=== PATIENT | male | born 1940 | race Caucasian/White ===

== ENCOUNTER 2017-07-30 05:23 | Inpatient (IN) | payer MEDICARE, BC, SELFPAY ==
[2017-07-30] VITALS (14 sets, daily range): BP systolic 151–217; BP diastolic 85–97; PULSE 69–88; RESP 12–17; TEMP 36.5–36.9; O2SAT 95–99; BMI 30.9; BMI 26.1
--- NOTE | 2017-07-30 05:43 | EKG12_ITS ---
Test Reason : ALT LOC Blood Pressure : / mmHG Vent. Rate : 071 BPM Atrial Rate : 071 BPM P-R Int : 178 ms QRS Dur : 108 ms QT Int : 398 ms P-R-T Axes : 032 033 031 degrees QTc Int : 432 ms Normal sinus rhythm Normal ECG Confirmed by TO BECK MD ([id number]), assistant production editor MAXI PERALTA ([id number] on 08/01/2017 8:45:48 AM Referred By: NAHED Confirmed By:TO BECK MD
--- NOTE | 2017-07-30 05:43 | CT_ITS ---
STUDY: CT BRAIN WITHOUT CONTRAST REASON FOR EXAM: Male, 77 years old. Weakness. Altered level of consciousness. RADIATION DOSAGE (If Supplied By Facility): CTDIvol = ( 44.99 ) mGy, DLP = ( 1592.22 ) mGycm TECHNIQUE: Transaxial CT imaging of the brain was performed without administration of intravenous contrast material. Individualized dose optimization techniques were used for this CT. COMPARISON: 07/13/2014. FINDINGS: Normal soft tissue structures. Normal calvarium. There is moderate cerebral atrophy with widening of the extra-axial spaces and ventricular dilatation. There are areas of decreased attenuation within the white matter tracts of the supratentorial brain, consistent with microvascular disease changes. There are old lacunar infarcts basal ganglia bilaterally as well as the right thalamus. There are also old lacunar infarctions in the coronal radiata bilaterally. Normal brainstem. There is moderate cerebellar atrophy. There is atherosclerotic calcification of the vertebral and cavernous carotid arteries. There is no intracranial hemorrhage. There are no findings of an acute ischemic infarction. Normal visualized paranasal sinuses. CT/Brain/Head without Contrast IMPRESSION: Chronic involutional changes of the brain. No demonstrated acute intracranial process. Electronically Signed: Sarabjit Alberts MD at 6:59 EST , Service support ,
--- NOTE | 2017-07-30 05:43 | RAD_ITS ---
STUDY: X-RAY CHEST REASON FOR EXAM: Male, 77 years old. Altered level of consciousness. TECHNIQUE: Single AP portable view of the chest. COMPARISON: 07/14/2016. FINDINGS: There is mild interstitial prominence in the lungs which appears to be chronic. There is no demonstrated acute pulmonary infiltrate. There is no demonstrated pleural abnormality. There is mild cardiac enlargement. Normal mediastinum and ann. Normal visualized pulmonary arteries. There is atherosclerotic calcification of the aortic arch with tortuosity. There are diffuse degenerative changes of the visualized thoracic spine. Normal visualized ribs, clavicles, and shoulders. There is no demonstrated abnormality of the visualized soft tissue structures of the upper abdomen. RAD/Chest 1 View (Portable) IMPRESSION: Chronic interstitial changes. Mild cardiomegaly. No evidence for acute cardiopulmonary pathology. Electronically Signed: Sarabjit Alberts MD at 6:49 EST , Service support ,
--- NOTE | 2017-07-30 05:47 | ED.DCSUM_ITS ---
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 Per she want to get him out of bed today around 3 AM she thinks he may have had decreased mental status and left-sided weakness. He also is complaining of some headache. He has been seen recently in the hospital due to a fall and a CT at that time which was unremarkable. She denies any recent illness. He has had no recent nausea, vomiting, diarrhea, cough or fever. Physical Examination: Elderly male no acute distress. Vital signs stable and afebrile. H EENT exam normal speech. Lid lag on the left. Which may be chronic. Neck nontender. Lungs clear to auscultation bilaterally. Heart regular rate and rhythm no murmur. Abdomen soft nontender. He can move all 4 extremities he does have chronic weakness in the left leg from his prior stroke. No deformities. Nontender. Neurologically is awake and alert. He does answer questions and follow commands. Test Results: CBC normal with a white count of 6. Chemistry unremarkable normal gap of 7 creatinine is 0.8. Glucose of 170. EKG sinus rhythm rate is 71 with no acute abnormality no change from prior EKG from 2017. Chest x-ray showed chronic changes no acute process read by myself and the radiologist. CT of the brain shows no acute abnormality. Prior strokes. Prior atrophy. No acute bleed. Emergency Department Course and Treatment: Repeat exam at 07 40 no significant change. I spoke to the patient's at length and have multiple times during their ER course. She is highly concerned about taking him home because of his overall generalized weakness and is not having specific source at this time. She is also highly focused on he was recently on a cholesterol medication and a bladder spasm medication which she thinks may be the source of this problem even his medications have recently been stopped. I have spoken with the hospitalist Dr. Phelps who is been down to evaluate the patient and has admitted him. Treatment Plan: [] Disposition: Admission Impression: Acute generalized weakness of uncertain etiology Prior stroke with left leg weakness Failure to thrive at home This note was generated with [employer] dictation software. It may contain incorrect words, spelling, and punctuation that were not noted in review of the chart prior to signing ED Disposition - Plan for ED Patient: Chief Complaint: Alt LOC
[2017-07-30 06:04] LABS: Absolute Lymphocyte Count 1.11 X10^3/ul (0.83-4.51); Absolute Neutrophil Count 4.6 X10^3/uL (2.0-7.7); Basophil# 0.01 X10^3/uL; Basophil% 0.2 % (0-1); Eosinophil# 0.04 X10^3/uL; Eosinophils% 0.7 % (0-5); Hematocrit 43.8 % (40-54); Hemoglobin 14.3 g/dl (13.0-16.5); Lymphocyte # 1.11 X10^3/ul (4.0); Lymphocyte % 18.2 % (19-41); Mean Corp Hgb Conc 32.6 g/gl (32-36); Mean Corpuscular Hgb 30.4 pg (27.0-32.0); Mean Corpuscular Volume 93.2 fL (80-94); Mean Platelet Vol. 10.4 fl (6.2-12.0); Monocyte# 0.34 X10^3/uL; Monocyte% 5.6 % (0-10); Neutrophil # 4.58 X10^3/uL (2.7-7.7); Neutrophil % 75.1 % (47-70); Platelet Count 158 K/mm3 (150-450); RBC Distribution Width CV 13.1 % (11.6-14.6); RBC Distribution Width SD 44.9 fl (35.1-43.9); White Blood Count 6.1 K/mm3 (4.4-11.0)
[2017-07-30 06:10] LABS: POSITIVE COUNT NO; POSITIVE DIFFERENTIAL NO; POSITIVE MORPHOLOGY NO
[2017-07-30 06:17] LABS: Anion Gap 7 (5-15); BUN 15 mg/dL (7-18); Calcium,Total 9.2 mg/dL (8.5-10.1); Chloride 99 mmol/L (98-107); Creatinine, Serum 0.88 mg/dL (0.70-1.30); EST Glomerular Filtration Rate 89 mL/min (>60); Est Glom Filt Rate - Afr Amer 108 mL/min (>60); Estimated Creatinine Clearance 73.74 ml/min; Glucose 170 mg/dL (74-106); Sodium Level 137 mmol/L (136-145)
--- NOTE | 2017-07-30 06:44 | NURSING ---
MED SURG AMS NICK
--- NOTE | 2017-07-30 07:06 | PCM.HP.STD ---
Problem List (1) Mental status alteration Status: Acute (2) Generalized weakness Status: Acute (3) Cerebrovascular disease Status: Chronic (4) HTN (hypertension) Status: Chronic (5) Stroke Status: Ruled-out History of Present Illness Date of Admission: 07/30/17 Chief Complaint: AMS The patient is a 77 year old male w/ h/o HTN, tongue CA, CVA with residual left sided weakness admitted for mental status changes. He had multiple recent hospitalizations for fall and was recently seen in the ED for a fall that unremarkable CT in June. He has been getting home PT/OT. He was also been recently placed on CPAP which has helped him to get into a deeper sleep. His tried to get him out of med around 3AM and he has been too weak to get up. He also has been squinting his eyes which he did when he had the stroke. His weakness has been sudden and nothing appeared to improve it. Despite his trying to wake up him, he would not improved and nothing appeared to make his weakness better or worse. Given that he is much bigger than his and no improvement in his weakness, his called paramedics to help. Past Medical History Past Medical History (Chronic Problems): Chronic Problems (Last Updated 06/12/17 @ 13:43 by Lobo Cheng DO) Cerebrovascular disease (Chronic) HTN (hypertension) (Chronic) Allergies chocolate flavor Adverse Reaction (Unknown, Verified 07/30/17 05:32) Other Pork/Porcine Containing Products Adverse Reaction (Unknown, Verified 07/30/17 05:32) Other atorvastatin [From Lipitor] Adverse Reaction (Verified 07/30/17 05:35) Other oxybutynin Adverse Reaction (Verified 07/30/17 05:35) Other Home Medications: Ambulatory Orders Medication Instructions Recorded Aspirin [Aspirin, Baby] 81 mg PO DAILY@0800 06/12/17 Cholecalciferol (Vitamin D3) 5,000 unit PO DAILY 06/12/17 [Vitamin D3] Multivitamins,Therapeutic 1 tablet PO DAILY 06/12/17 [Multivitamin] Lisinopril [Prinivil] 10 mg PO DAILY 07/30/17 Surgical History: - - R hip ga arthroplasty Lives: Spouse/ Significant Other Smoking Status: Never smoker Alcohol: None Drugs: None Review of Systems Constitutional: Denies: Chills, Fever, Weight Change HEENT: Denies: Head Aches, Sinus Congestion, Sinus Drainage Cardiovascular: Denies: Chest Pain, Palpitations Respiratory: Denies: Cough, Shortness of breath at rest, Sputum production Gastrointestinal: Denies: Abdominal Pain, Nausea, Vomiting Genitourinary: Denies: Dysuria Musculoskeletal: Denies: Joint Pain, Joint Tenderness Skin: Denies: Rash, Wounds Neurological: Reports: Balance problems, Confusion. Denies: Focal weakness, Numbness, Tingling Psychiatric: Denies: Anxiety, Depression, Homicidal Ideations, Suicidal Ideations Hematologic/ Lymphatic: Denies: Easy Bruising, Easy Bleeding VTE Information - Inpt Only VTE Present on Admission: No VTE Mechan Device Prophylaxis: SCD's VTE Pharm Prophylaxis ordered?: Yes Patient Problems: Active and Suspected Problems (Last Updated 06/12/17 @ 13:43 by Lobo Cheng DO) Mental status alteration (Acute) - Physical Exam General: Alert, Oriented x3, Cooperative HEENT: Atraumatic, PERRLA, EOMI, Normocephalic Neck: Supple, No JVD, Negative Carotid Bruits Lungs: Clear to auscultation, Normal air movement Cardiovascular: Regular rate, No murmurs Abdomen: Bowel Sounds Present, Soft, Non Tender Extremities: No edema, Capillary Refill Less than 3 Seconds Skin: No rashes, No breakdown Musculoskeletal: No Tenderness to Palpation of Joints or Extremities Neurological: Cranial nerves II-XII grossly intact, - - Generalized weakness Psych/Mental Status: Normal Affect, Appropriate Vital Signs Temp Pulse Resp BP Pulse Ox 97.7 F L 73 17 212/95 H 97 07/30/17 05:24 07/30/17 05:32 07/30/17 05:24 07/30/17 05:32 07/30/17 05:32 Oxygen Delivery Method Room Air Weight: 97.8 kg Body Mass Index (BMI) 30.9 Finger Stick Blood Glucose 168 Laboratory Tests Past 24 Hrs 07/30/17 07/30/17 05:37 05:37 WBC 6.1 RBC 4.70 Hgb 14.3 Hct 43.8 MCV 93.2 MCH 30.4 MCHC 32.6 RDW 13.1 RDW Differential 44.9 H Plt Count 158 MPV 10.4 Immature Gran % (Auto) 0.200 Neut % (Auto) 75.1 H Lymph % (Auto) 18.2 L [place] % (Auto) 5.6 Eos % (Auto) 0.7 Baso % (Auto) 0.2 Absolute Neuts (auto) 4.6 Absolute Lymphs (auto) 1.11 Total Counted Not Reportable Sodium 137 Potassium 4.0 Chloride 99 Carbon Dioxide 31.0 Anion Gap 7 BUN 15 Creatinine 0.88 Estim Creat Clear Calc 73.74 Est GFR (MDRD) Af Amer 108 Est GFR (MDRD) Non-Af 89 BUN/Creatinine Ratio 17.0 Glucose 170 H Calcium 9.2 Assessment/Plan Active and Suspected Problems (Last Updated 06/12/17 @ 13:43 by Lobo Cheng DO) Mental status alteration (Acute) 77 year old male w/ h/o HTN, tongue CA, CVA with residual left sided weakness admitted for mental status changes. 1) Mental status altercation: No clear etiology. No sedative meds. No acute focal finding. CT head negative for acute finding. Will get B12, folate, TSH, ammonia, drug screen, and RPR. Cultures pending as well. Will consider neuro consult if no improvement. 2) HTN: Resume home meds. Will consider adding meds if SBP persistently elevated. Monitor. 3) CVA: left sided residual weakness. PT/OT. 4) Prophylaxis: Heparin.
[2017-07-30] MEDS: Lisinopril 10 MG Tablet PO (08:39)
[2017-07-30] MEDS: Aspirin 81 MG TAB.CHEW PO (08:39)
[2017-07-30] MEDS: Multivitamins,Therapeutic Tablet 1 TABLET PO (08:39)
--- NOTE | 2017-07-30 08:49 | MRI_ITS ---
STUDY: MRI BRAIN WITHOUT CONTRAST REASON FOR EXAM: Male, 77 years old. Confusion. TECHNIQUE: Standardized multiplanar fat and water weighted pulse sequences were obtained. COMPARISON: CT head without contrast 07/30/2017. FINDINGS: No restricted diffusion to suspect acute or subacute ischemic infarcts. Normal size of the ventricles and extra-axial spaces for the patient's age. Confluent periventricular white matter T2 FLAIR hyperintensity foci and in both centrum semiovale. There are also old lacunar cystic infarcts in both periventricular white matter. Normal bilateral basal ganglia. Old lacunar cystic infarct in the right ventral thalamus. There is no extra-axial fluid accumulation. Normal flow voids within the major intracranial circulation suggesting patency by spin echo criteria. Normal sella turcica, pituitary gland, infundibular stalk, optic chiasm and hypothalamus. Normal tectal plate and pineal gland. Normal midbrain, blanco and medulla. Normal cerebellum. Normal basal cisterns. Normal bilateral temporal bones. Normal bilateral internal auditory canals. No demonstrated orbital abnormality, within the constraints of a routine brain study. Normal visualized paranasal sinuses. Normal calvarium and skull base. Normal visualized soft tissue structures. Normal visualized upper cervical spine. MRI/Brain without Contrast IMPRESSION: 1. No MRI evidence of acute or subacute ischemic infarct. 2. Extensive confluent chronic white matter ischemic changes in both cerebral hemispheres. 3. Old lacunar cystic infarcts in both periventricular white matter and in the right ventral thalamus. Electronically Signed: Stephen Burrows MD at 14:53 EST , Service support ,
--- NOTE | 2017-07-30 08:49 | MRI_ITS ---
STUDY: MRA NECK WITH AND WITHOUT CONTRAST REASON FOR EXAM: Male, 77 years old. Confused. TECHNIQUE: 3-D rcop-cn-eryllf (TOF) imaging was performed in an 1.5 T MRI scanner. 10 ml of Gadavist was administered for the contrast enhanced images. COMPARISON: None. FINDINGS: RIGHT CAROTID ARTERIES: Normal right common carotid artery (CCA). Normal right common carotid bulb. Normal origin of the right internal carotid (ICA) artery without a hemodynamically significant stenosis. Normal visualized cervical portion of the right internal carotid artery. Normal origin of the right external carotid artery (ECA). LEFT CAROTID ARTERIES: Normal left common carotid artery (CCA). Normal left common carotid bulb. Normal origin of the left internal carotid (ICA) artery without a hemodynamically significant stenosis. Normal visualized cervical portion of the left internal carotid artery. Normal origin of the left external carotid artery (ECA). VERTEBRAL ARTERIES: Normal antegrade flow within the bilateral vertebral artery without a hemodynamically significant stenosis. The right vertebral artery is slightly more dominant. AORTIC ARCH: Widely patent and normal aortic arch and origins of the great vessels. MRI/MRA Neck WITH and W/O Contrast IMPRESSION: 1. Normal bilateral cervical carotid and vertebral arteries. 2. Normal aortic arch and origins of the great vessels. Electronically Signed: Stephen Burrows MD at 16:03 EST , Service support ,
--- NOTE | 2017-07-30 08:49 | MRI_ITS ---
STUDY: MRA OF THE HEAD WITHOUT CONTRAST REASON FOR EXAM: Male, 77 years old. Confusion. Unable to understand directions. TECHNIQUE: 3-D [id number]-wn-ugbgph (TOF) imaging was performed with MIPs. The study was performed unenhanced. Motion degradation. COMPARISON: None. FINDINGS: Motion degradation with suspicious 50% stenosis in the ascending petrous segment of the right internal carotid artery. Suspicious 50% stenosis in the paraclinoid segment of the right internal carotid artery. Normal right cavernous segment and supraclinoid segment of the right internal carotid artery. Normal right supraclinoid internal carotid artery bifurcation. Normal petrous segments, cavernous segments and supraclinoid segment of the left internal carotid artery. Normal left internal carotid artery bifurcation. Hypoplastic right A1 segment. Normal left A1 segment. Normal intact anterior communicating artery (ACOM). Normal bilateral A2 segments of the anterior cerebral arteries. Normal right M1 and M2 segments of the middle cerebral arteries, with a normal M1 bifurcation. Normal left M1 and M2 segments of the middle cerebral arteries, with a normal M1 bifurcation. No visible right posterior communicating artery (PCOM). Normal left posterior communicating artery (PCOM). Normal bilateral vertebral arteries. Normal basilar artery with a normal basilar bifurcation. The visualized bilateral superior cerebellar (SCA) arteries are normal. Normal bilateral P1, P2 and visualized P3 segments of the posterior cerebral arteries. There is no demonstrated aneurysm of the [place] of [place]. Multiple old lacunar cystic infarcts in the periventricular white matter and in the right ventral thalamus. MRI/MRA Head ONLY without Contrast IMPRESSION: 1. Limited MRA of the head due to motion degradation. 2. Suspicious 50% stenosis in the ascending petrous segment and the paraclinoid segment of the right internal carotid artery. 3. No other suspicious vaso-occlusive disease of the anterior and posterior intracranial circulation. COMMENT: CTA of the head will be very helpful for further clarification if there is no contrast contraindication. Electronically Signed: Stephen Burrows MD at 15:14 EST , Service support ,
--- NOTE | 2017-07-30 08:51 | ECHOD_ITS ---
Reason For Study: TIA/CVA Procedure This was a 2D Doppler, Color Flow transthoracic echocardiogram. Exam performed portable in patient room. Left Ventricle Normal LV size. Moderate concentric left ventricular hypertrophy. Left ventricular systolic function is normal. The estimated ejection fraction is 60 %. No regional wall motion abnormalities noted. Right Ventricle Normal RV size. Normal systolic function. Atria Normal left atrium. Normal right atrium. Bubble contrast study negative for right to left interatrial shunt. Mitral Valve Normal mitral valve. Tricuspid Valve Normal tricuspid valve. Mild (1+) tricuspid valve insufficiency. Pulmonary artery systolic pressure is 26 mmHg. Aortic Valve Trisinus/trileaflet aortic valve. Peak aortic valve gradient 21 mmHg. Mean aortic valve gradient 11 mmHg. Mild aortic stenosis. Calculated aortic valve area (continuity equation) is 1.6 cm2. Pulmonic Valve Normal pulmonic valve. Great Vessels Normal aortic root. The pulmonary artery is normal size. Normal inferior vena cava. Pericardium/Pleural No pericardial effusion. Medication Performed a rapid injection of agitated mix of 9 cc saline and 1cc air to assess for atrial septal defect. MMode/2D Measurements & Calculations LVIDd: 4.0 cm IVSd: 1.3 cm LVOT diam: 2.0 cm LVIDs: 2.8 cm LVPWd: 1.3 cm LVOT area: 3.2 cm2 RVDd: 3.6 cm FS: 30.1 % Ao root diam: 3.8 cm LAV(MOD-sp4): 29.0 ml LA dimension: 2.8 cm LA A4 area: 12.8 cm2 RA A4 area: 10.1 cm2 Doppler Measurements & Calculations MV E max maira: 51.5 cm/sec Ao V2 max: 232.8 cm/sec LV V1 max: 120.5 cm/sec MV A max maira: 55.4 cm/sec Ao max P.7 mmHg LV V1 max P.8 mmHg MV E/A: 0.93 Ao V2 mean: 157.9 cm/sec LV V1 mean P.9 mmHg Ao mean P.3 mmHg LV V1 mean: 79.3 cm/sec Ao V2 VTI: 45.5 cm LV V1 VTI: 24.8 cm MOHINI(I,D): 1.7 cm2 MOHINI(V,D): 1.6 cm2 SV(LVOT): 78.5 ml PA V2 max: 116.4 cm/sec TR max maira: 235.8 cm/sec TR max P.3 mmHg Interpretation Summary Normal LV size. Moderate concentric left ventricular hypertrophy. Left ventricular systolic function is normal. The estimated ejection fraction is 60 %. Bubble contrast study negative for right to left interatrial shunt. Mild aortic stenosis. Calculated aortic valve area (continuity equation) is 1.6 cm2. Ordering Physician: Ruddy Crespo Referring Physician: BRI ASHLEY Performed By: Gisselle Correia, RDCS, RVT
--- NOTE | 2017-07-30 08:52 | PCM.PN.HOSP ---
Patient Problems: Active and Suspected Problems (Last Updated 06/12/17 @ 13:43 by Lobo Cheng DO) Mental status alteration (Acute) Vitals/I&O's: Vital Signs Temp Pulse Resp BP Pulse Ox 98.3 F 74 16 194/90 H 99 07/30/17 08:11 07/30/17 08:11 07/30/17 08:11 07/30/17 08:11 07/30/17 08:11 Oxygen Delivery Method Room Air Weight: 92.2 kg Body Mass Index (BMI) 26.1 Current Medications Acetaminophen (Tylenol) 650 mg PO Q4H PRN PRN PRN Reason: PAIN Aspirin (Aspirin, Baby) 81 mg PO DAILY@0800 [facility] Last Admin: 07/30/17 08:39 Dose: 81 mg Famotidine (Pepcid) 20 mg PO BID [facility] Heparin Sodium (Porcine) () 5,000 units SC Q8 [facility] Potassium Chloride/Sodium Chloride () 1,000 mls @ 100 mls/hr IV .Q10H [facility] Lisinopril (Zestril) 10 mg PO DAILY [facility] Last Admin: 07/30/17 08:39 Dose: 10 mg Magnesium Hydroxide (Milk Of Magnesia) 30 ml PO DAILY PRN PRN PRN Reason: Constipation Multivitamins (Multivitamin) 1 tablet PO DAILYCM [facility] Last Admin: 07/30/17 08:39 Dose: 1 tablet Assessment/Plan Active and Suspected Problems (Last Updated 06/12/17 @ 13:43 by Lobo Cheng DO) Mental status alteration (Acute) Patient is a 77-year-old gentleman with past medical history is significant for acute ischemic stroke in January 2017 brought to the hospital by the on account of patient having had progressive generalized weakness following his discharge from inpatient rehab unit. Patient was also reported to have fallen a couple of times. Patient has been admitted to a monitored bed where patient is currently undergoing evaluation Patient seen and examined his initial assessment including history and physical, diagnostic workup and management orders reviewed. Did add additional orders including MRI MRA of the head and neck to rule out new stroke consultation was placed to urology as well Also did advance patient advance directive plans with the patient's wants patient to remain full code total time spent on this discussion 18 minutes. Code Visit Procedures: 75179 Advncd Care Plan 30 Min
[2017-07-30 09:11] LABS: Mucous, Urine 0 SEEN /hpf (<or=2+); Red Blood Cells-Urine 0 SEEN /hpf (0-5); White Blood Cells 0 SEEN /hpf (0-5)
[2017-07-30 09:17] LABS: Color, Urine Yellow (Yellow); Glucose, Dipstick Normal (Normal); Ketone-Dipstick Negative (Negative); Leukocyte Esterase-Dipstick Negative /ul (Negative); Nitrite-Dipstick Negative (Negative); Occult Blood-Urine Negative /ul (Negative); Protein-Dipstick 15 mg/dl (Negative); Specific Gravity, Urine 1.015 (1.002-1.030); Urine Bilirubin Dipstick Negative (Negative); Urine Clarity Sl. Cloudy (Clear); Urine Urobilinogen Normal (Normal)
[2017-07-30 09:23] LABS: Amorphous Sediment 1+; Bacteria RARE /hpf (None Seen); Squamous Epithelial Cells - UA 0-5 SEEN /hpf (0-5)
[2017-07-30] MEDS: 0.9% NaCl Peripheral Flush Adult/Peds IV ×2 (10:00→17:36)
[2017-07-30 10:59] LABS: AST(SGOT) 20 U/L (15-37); Alanine Aminotransfer ALT/SGPT 27 U/L (16-61); Albumin, Serum 3.7 g/dL (3.2-5.0); Alkaline Phosphatase 90 U/L (45-117); Bilirubin, Direct 0.13 mg/dL (0.00-0.30); Globulin 4.4 g/dL (2.2-4.2); Protein, Total 8.1 g/dL (6.4-8.2); Thyroid Stim Hormone (TSH) 1.43 uIU/mL (0.358-3.74)
[2017-07-30] MEDS: LORazepam 2 MG/ML Syringe 1 MG IV (11:30)
--- NOTE | 2017-07-30 12:40 | NURSING ---
[facility] and [facility] late due to pt being at MRI
[2017-07-30] MEDS: Heparin Injection 5,000 UNITS/ML Syringe 5000 UNITS SC ×2 (13:33→22:05)
[2017-07-30 14:28] LABS: Amphetamine Urine VISTA NEGATIVE (<1000 ng/mL); Barbiturate Urine VISTA NEGATIVE (< 200 ng/mL); Benzodiazepine Urine VISTA NEGATIVE (< 200 ng/mL); Cocaine Urine VISTA NEGATIVE (< 300 ng/mL); Ecstacy Urine VISTA NEGATIVE (< 500 ng/mL); Methadone Urine VISTA NEGATIVE (< 300 ng/mL); PCP Urine VISTA NEGATIVE (< 25 ng/mL); THC Urine VISTA NEGATIVE (< 50 ng/mL); Vista UDS pH Range 7
--- NOTE | 2017-07-30 15:25 | PCM.CONS.GEN ---
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 Patient at present is very lethargic and drowsy. History is obtained form and medical records. Per patient had a stroke in January 2016, was treated at [facility], records not available at present, is on ASA at baseline, is allergic to statins per , later had a fall on June 09 2017, needed [facility] IP RU admission for about 3 weeks, following which as doing home PT/OT, had another fall on July 13 2017, was brought to the [facility] ED where CT head was reported normal and patient was not admitted, later had another fall the next day but did not seek any medical advise, now comes with AMS, felt he was very restless this morning and was confused with AMS, has been using walker since the fall in May 2017, had 2 more falls, and has balance issues per , does not drive and does need some assistance with his ADLs. CT head done on this admission was reported to be normal, MRI brain reported normal, MRA head/neck reported to 50% stenosis in the right petrous and paraclinoid ICA. SBP on admission was in 200s. Per documentation patient had WEST on admission. [] Past Medical History Past Medical History (Chronic Problems): Chronic Problems (Last Updated 06/12/17 @ 13:43 by Lobo Cheng DO) Cerebrovascular disease (Chronic) Stroke (Chronic) HTN (hypertension) (Chronic) Allergies chocolate flavor Adverse Reaction (Unknown, Verified 07/30/17 05:32) Other Pork/Porcine Containing Products Adverse Reaction (Unknown, Verified 07/30/17 05:32) Other atorvastatin [From Lipitor] Adverse Reaction (Verified 07/30/17 05:35) Other oxybutynin Adverse Reaction (Verified 07/30/17 05:35) Other Home Medications: Ambulatory Orders Medication Instructions Recorded Aspirin [Aspirin, Baby] 81 mg PO DAILY@0800 06/12/17 Cholecalciferol (Vitamin D3) 5,000 unit PO DAILY 06/12/17 [Vitamin D3] Multivitamins,Therapeutic 1 tablet PO DAILY 06/12/17 [Multivitamin] Biotin 5 mg PO DAILY 07/30/17 Cyanocobalamin (Vitamin B-12) 3,000 mcg PO DAILY 07/30/17 [Vitamin B-12] Lisinopril [Prinivil] 10 mg PO DAILY 07/30/17 Multivit-Min/Folic Acid/Biotin 1 each PO DAILY 07/30/17 [Hair, Skin & Nails Caplet] [place]-3/Dha/Epa/Fish Oil [Fish Oil 1,200 mg PO DAILY 07/30/17 [place]-3 EC 1,200 mg] Vitamin E (Dl,Tocopheryl Acet) 400 units PO DAILY 07/30/17 [Vitamin E] Surgical History: - - R hip ga arthroplasty Lives: Spouse/ Significant Other Smoking Status: Never smoker Alcohol: None Drugs: None Review of Systems Constitutional: Reports: - - could not be obtained since patient was very drowsy Patient Problems: Active and Suspected Problems (Last Updated 06/12/17 @ 13:43 by Lobo Cheng DO) Mental status alteration (Acute) - Physical Exam General: Lethargic, - - drowsy HEENT: Atraumatic, PERRLA, EOMI, Normocephalic Neck: Supple, No JVD, Negative Carotid Bruits Lungs: Clear to auscultation, Normal air movement Cardiovascular: Regular rate Abdomen: Bowel Sounds Present, Soft, Non Tender Extremities: No clubbing Musculoskeletal: No Tenderness to Palpation of Joints or Extremities Neurological: - - drowsy, limited Neurology examination, per nurse patient had received Ativan for MRI, pupils BERl, follows VC very intermittently, moves all 4 extremities, Plantars B/L extensor, sensory, cerebellar and gait cannot be assessed, Reflexes + B/L B/S/T/K/A Vital Signs Temp Pulse Resp BP Pulse Ox 98.3 F 81 12 169/91 H 97 07/30/17 12:39 07/30/17 12:39 07/30/17 12:39 07/30/17 12:39 07/30/17 12:39 Oxygen Delivery Method Room Air Weight: 92.2 kg Body Mass Index (BMI) 26.1 Intake and Output for Last 24 Hours 07/28/17 07/29/17 07/30/17 23:59 23:59 23:59 Intake Total 45.6 / 45.6 Balance 45.6 / 45.6 Laboratory Tests Past 24 Hrs 07/30/17 07/30/17 07/30/17 09:00 09:10 09:54 Total Bilirubin Direct Bilirubin AST ALT Alkaline Phosphatase Ammonia Total Protein Albumin Globulin Vitamin B12 Pending Folate TSH Urine Color Yellow Urine Clarity Sl. Cloudy Urine pH 8.0 Ur Specific [place] 1.015 Urine Protein 15 H Urine Glucose (UA) Normal Urine Ketones Negative Urine Occult Blood Negative Urine Nitrite Negative Urine Bilirubin Negative Urine Urobilinogen Normal Ur Leukocyte Esterase Negative Urine RBC 0 SEEN Urine WBC 0 SEEN Ur Squamous Epith Cells 0-5 SEEN Amorphous Sediment 1+ Urine Bacteria RARE Urine Mucus 0 SEEN Urine Opiates Screen NEGATIVE Urine Methadone Screen NEGATIVE Ur Barbiturates Screen NEGATIVE Ur Phencyclidine Scrn NEGATIVE Ur Amphetamines Screen NEGATIVE U Methamphetamin-MDMA NEGATIVE U Benzodiazepines Scrn NEGATIVE Urine Cocaine Screen NEGATIVE U Cannabinoids Screen NEGATIVE Ur Drug Screen Comment RPR 07/30/17 07/30/17 07/30/17 09:54 09:54 09:54 Total Bilirubin 0.50 Direct Bilirubin 0.13 AST 20 ALT 27 Alkaline Phosphatase 90 Ammonia 18.0 Total Protein 8.1 Albumin 3.7 Globulin 4.4 H Vitamin B12 Folate 38.00 TSH 1.43 Urine Color Urine Clarity Urine pH Ur Specific [place] Urine Protein Urine Glucose (UA) Urine Ketones Urine Occult Blood Urine Nitrite Urine Bilirubin Urine Urobilinogen Ur Leukocyte Esterase Urine RBC Urine WBC Ur Squamous Epith Cells Amorphous Sediment Urine Bacteria Urine Mucus Urine Opiates Screen Urine Methadone Screen Ur Barbiturates Screen Ur Phencyclidine Scrn Ur Amphetamines Screen U Methamphetamin-MDMA U Benzodiazepines Scrn Urine Cocaine Screen U Cannabinoids Screen Ur Drug Screen Comment RPR Pending Assessment/Plan Active and Suspected Problems (Last Updated 06/12/17 @ 13:43 by Lobo Cheng DO) Mental status alteration (Acute) The patient is a 77 year old CM with PMH HTN, 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 Patient at present is very lethargic and drowsy. History is obtained form and medical records. Per patient had a stroke in January 2016, was treated at [facility], records not available at present, is on ASA at baseline, is allergic to statins per , later had a fall on June 09 2017, needed [facility] IP RU admission for about 3 weeks, following which as doing home PT/OT, had another fall on July 13 2017, was brought to the [facility] ED where CT head was reported normal and patient was not admitted, later had another fall the next day but did not seek any medical advise, now comes with AMS, felt he was very restless this morning and was confused with AMS, has been using walker since the fall in May 2017, had 2 more falls, and has balance issues per , does not drive and does need some assistance with his ADLs. CT head done on this admission was reported to be normal, MRI brain reported normal, MRA head/neck reported to 50% stenosis in the right petrous and paraclinoid ICA. SBP on admission was in 200s. Per documentation patient had WEST on admission. NO fever, sick contact or recent travel. Impression AMS Possible Metabolic encephalopathy ?Hypertensive encephalopathy Repeated Falls Plan -CT head-nothing acute -MRI brain images reviewed- nothing acute -MRA head/neck- reported to show 50% stenosis in the right paraclinoid and petrous ICA -Recommend MRI C spine w/o contrast and MRI Lumbar spine w/o contrast -Labs majwkuom-IHO-1.1, Cr-0.88, UA neg, US neg, LFTs, ammonia normal, TSH normal, Vitamin B12 pending -Further medical management of HTN per primary team -May need EMG/NCS as outpatient -GI/DVT prophylaxis -PT/OT -Fall precautions -Patient can follow up with his Neurologist at outpatient at [facility] 2-3 weeks after discharge. -Please call with questions if any -Thank you for allowing us to participate in patient's care and management I spent 60 minutes taking history, doing physical examination, reviewing medical records, coordinating care and counseling the patient. Code Visit Inpatient E&M: 95088 Init Hosp L3
[2017-07-31] VITALS (13 sets, daily range): BP systolic 110–188; BP diastolic 56–80; PULSE 70–84; RESP 16–18; TEMP 36.7–37.1; O2SAT 94–96; BMI 26.1
[2017-07-31 05:39] LABS: Absolute Lymphocyte Count 1.45 X10^3/ul (0.83-4.51); Absolute Neutrophil Count 5.2 X10^3/uL (2.0-7.7); Basophil# 0.02 X10^3/uL; Basophil% 0.3 % (0-1); Eosinophil# 0.01 X10^3/uL; Eosinophils% 0.1 % (0-5); Hematocrit 41.2 % (40-54); Hemoglobin 13.9 g/dl (13.0-16.5); Lymphocyte # 1.45 X10^3/ul (4.0); Lymphocyte % 19.9 % (19-41); Mean Corp Hgb Conc 33.7 g/gl (32-36); Mean Corpuscular Hgb 30.8 pg (27.0-32.0); Mean Corpuscular Volume 91.4 fL (80-94); Mean Platelet Vol. 10.5 fl (6.2-12.0); Monocyte# 0.54 X10^3/uL; Monocyte% 7.4 % (0-10); Neutrophil # 5.24 X10^3/uL (2.7-7.7); Neutrophil % 72.2 % (47-70); Platelet Count 154 K/mm3 (150-450); RBC Distribution Width CV 13.1 % (11.6-14.6); RBC Distribution Width SD 43.5 fl (35.1-43.9); Red Blood Count 4.51 M/mm3 (4.6-6.2); White Blood Count 7.3 K/mm3 (4.4-11.0)
[2017-07-31 05:52] LABS: Anion Gap 9 (5-15); BUN 13 mg/dL (7-18); BUN/Creat Ratio 19.8 RATIO (10-20); Calcium,Total 8.7 mg/dL (8.5-10.1); Chloride 102 mmol/L (98-107); Cholesterol 126 mg/dL (200); Creatinine, Serum 0.66 mg/dL (0.70-1.30); EST Glomerular Filtration Rate 125 mL/min (>60); Est Glom Filt Rate - Afr Amer 151 mL/min (>60); Estimated Creatinine Clearance 73.07 ml/min; Glucose 132 mg/dL (74-106); High Density Lipoprotein 44 mg/dL; Potassium 3.7 mmol/L (3.5-5.1); Sodium Level 136 mmol/L (136-145); Triglycerides 141 mg/dL; Very Low Density Lipoprotein 28 mg/dL (5-40)
[2017-07-31 06:07] LABS: POSITIVE COUNT NO; POSITIVE DIFFERENTIAL NO; POSITIVE MORPHOLOGY NO
[2017-07-31] MEDS: Heparin Injection 5,000 UNITS/ML Syringe 5000 UNITS SC ×3 (06:40→22:33)
--- NOTE | 2017-07-31 07:11 | MRI_ITS ---
STUDY: MRI LUMBAR SPINE WITHOUT CONTRAST REASON FOR EXAM: Male, 77 years old. falls, MENTAL STATUS CHANGE, CONFUSION. TECHNIQUE: Standardized fat and water weighted pulse sequences were obtained in the sagittal and axial planes. COMPARISON: None FINDINGS: T12-L1: Normal endplates. Normal disc height, hydration and morphology. Normal bilateral facet joints. Normal central canal and bilateral lateral recesses. Normal bilateral intervertebral neural foramina. Normal lumbar lordosis. There is no substantial scoliosis. Normal conus medullaris that terminates at the L1 L1-2: Normal endplates. Normal disc height, hydration and morphology. Normal bilateral facet joints. Normal central canal and bilateral lateral recesses. Normal bilateral intervertebral neural foramina. L2-3: There is minimal disc space narrowing and endplate spondylosis. There is a minimal disc bulge and facet arthropathy without significant central canal or foraminal stenosis. L3-4: There is minimal disc space narrowing and endplate spondylosis. There is a minimal disc bulge and facet arthropathy without significant central canal or foraminal stenosis. L4-5: There is mild disc space narrowing and endplate spondylosis. There is a mild disc bulge and facet arthropathy. There is extensive facet arthropathy with grade 1 anterolisthesis. There is mild central canal stenosis. There is minimal bilateral stenosis. L5-S1: There is mild disc space narrowing and endplate spondylosis. There is disc osteophyte complex asymmetric to the left with moderate left foraminal stenosis. There is facet arthropathy contributing to mild central canal stenosis. There is mild right foraminal stenosis. Normal visualized sacral ala. Normal visualized paraspinous soft tissue structures. MRI/Spine Lumbar (Routine) IMPRESSION: L4/L5: Grade 1 degenerative anterolisthesis. L5/S1: Moderate left foraminal stenosis. Electronically Signed: Aneudy Hyman MD at 11:15 EST Tel , Service support ,
--- NOTE | 2017-07-31 07:11 | MRI_ITS ---
STUDY: MRI CERVICAL SPINE WITHOUT CONTRAST REASON FOR EXAM: Male, 77 years old. falls, mental status change. TECHNIQUE: Standardized fat and water weighted pulse sequences were obtained in the sagittal and axial planes. Technologist Notes Patient could not hold still, pt very confused, moving COMPARISON: None FINDINGS: Examination is limited by motion artifact. Normal craniovertebral junction. Normal anterior atlantoaxial articulation. Normal odontoid process. There is reversal of the normal cervical lordosis. C2-3: Sagittal only. There is no significant disc herniation or central canal stenosis C3-4: Sagittal only. There is mild disc space narrowing and endplate spondylosis. There is a mild disc osteophyte complex. There is no central canal stenosis. C4-5: There is moderate disc space narrowing and endplate spondylosis. There is a mild disc osteophyte complex with mild central canal stenosis. There appears to be bilateral foraminal stenosis. C5-6: There is interbody osseous fusion. There is no significant central canal stenosis. C6-7: There is mild disc space narrowing and endplate spondylosis. There is a moderate disc osteophyte complex with moderate central canal stenosis. There is uncovertebral arthropathy with moderate bilateral foraminal stenosis. C7-T1: There is mild disc space narrowing and endplate spondylosis. There is no significant disc herniation, spinal canal or foramina stenosis. Normal cervical cord. Normal visualized soft tissue structures. MRI/Spine Cervical (Routine) IMPRESSION: Limited examination. C6/C7: Moderate central canal stenosis. Moderate bilateral foraminal stenosis. Electronically Signed: Aneudy Hyman MD at 11:02 EST Tel , Service support ,
[2017-07-31 09:55] LABS: Vitamin B12 > 2000 pg/mL (211-911)
[2017-07-31] MEDS: Multivitamins,Therapeutic Tablet 1 TABLET PO (10:23)
[2017-07-31] MEDS: Famotidine 20 MG Tablet PO ×2 (10:23→22:33)
[2017-07-31] MEDS: Lisinopril 10 MG Tablet PO (10:23)
--- NOTE | 2017-07-31 10:33 | CASEMGMT ---
This RN CM to bedside to complete CM assessment and speech therapy is with pt at this time. Will attempt again later. SStmateus RN CM
--- NOTE | 2017-07-31 11:24 | PCM.PN.NEU ---
Patient Problems: Active and Suspected Problems (Last Updated 06/12/17 @ 13:43 by Lobo Cheng DO) Mental status alteration (Acute) Subjective: NO issues overnight. Patient is awake and alert but AoAx2 - Physical Exam General: - - awake, alert, AoAx2 HEENT: Atraumatic, PERRLA, EOMI, Normocephalic Neck: Supple, No JVD, Negative Carotid Bruits Lungs: Clear to auscultation, Normal air movement Cardiovascular: Regular rate Abdomen: Bowel Sounds Present, Soft, Non Tender Extremities: No edema Skin: No breakdown Musculoskeletal: No Tenderness to Palpation of Joints or Extremities Neurological: Cranial nerves II-XII grossly intact, - - consious, alert, CN 2-12 grossly intact except mild residual left UMN facial palsy, power +4/5 left UE/LE (residual from old stroke), 5/5 right UE/LE, plantars B/L flexor, no sensory loss, no cerebellar signs, mild increased tone on the left UE, no tremors or involuntary movements, gait deferred, Reflexes + B/L B/S/T/K/A Psych/Mental Status: Normal Affect, Appropriate Vital Signs Temp Pulse Resp BP Pulse Ox 98.3 F 75 18 138/67 H 94 07/31/17 10:00 07/31/17 10:00 07/31/17 10:00 07/31/17 10:00 07/31/17 10:00 Oxygen Delivery Method Room Air Weight: 92.2 kg Body Mass Index (BMI) 26.1 Intake and Output for Last 24 Hours 07/29/17 07/30/17 07/31/17 23:59 23:59 23:59 Intake Total 1196.6 / 1196.6 638 / 638 Balance 1196.6 / 1196.6 638 / 638 Microbiology Past 72 Hours 07/30/17 09:10 Urine Culture - Preliminary Urine Catheter - Catheter Culture exhibits no growth. 07/30/17 09:54 Blood Culture - Preliminary Blood Culture (Wb) - Right Forearm Laboratory Tests Past 24 Hrs 07/30/17 07/30/17 07/31/17 09:00 09:54 05:15 WBC 7.3 RBC 4.51 L Hgb 13.9 Hct 41.2 MCV 91.4 MCH 30.8 MCHC 33.7 RDW 13.1 RDW Differential 43.5 Plt Count 154 MPV 10.5 Immature Gran % (Auto) 0.100 Neut % (Auto) 72.2 H Lymph % (Auto) 19.9 [place] % (Auto) 7.4 Eos % (Auto) 0.1 Baso % (Auto) 0.3 Absolute Neuts (auto) 5.2 Absolute Lymphs (auto) 1.45 Total Counted Not Reportable Sodium Potassium Chloride Carbon Dioxide Anion Gap BUN Creatinine Estim Creat Clear Calc Est GFR (MDRD) Af Amer Est GFR (MDRD) Non-Af BUN/Creatinine Ratio Glucose Calcium Triglycerides Cholesterol LDL Cholesterol VLDL Cholesterol HDL Cholesterol Vitamin B12 > 2000 H Urine Opiates Screen NEGATIVE Urine Methadone Screen NEGATIVE Ur Barbiturates Screen NEGATIVE Ur Phencyclidine Scrn NEGATIVE Ur Amphetamines Screen NEGATIVE U Methamphetamin-MDMA NEGATIVE U Benzodiazepines Scrn NEGATIVE Urine Cocaine Screen NEGATIVE U Cannabinoids Screen NEGATIVE Ur Drug Screen Comment 07/31/17 05:15 WBC RBC Hgb Hct MCV MCH MCHC RDW RDW Differential Plt Count MPV Immature Gran % (Auto) Neut % (Auto) Lymph % (Auto) [place] % (Auto) Eos % (Auto) Baso % (Auto) Absolute Neuts (auto) Absolute Lymphs (auto) Total Counted Sodium 136 Potassium 3.7 Chloride 102 Carbon Dioxide 25.0 Anion Gap 9 BUN 13 Creatinine 0.66 L Estim Creat Clear Calc 73.07 Est GFR (MDRD) Af Amer 151 Est GFR (MDRD) Non-Af 125 BUN/Creatinine Ratio 19.8 Glucose 132 H Calcium 8.7 Triglycerides 141 Cholesterol 126 LDL Cholesterol 54 VLDL Cholesterol 28 HDL Cholesterol 44 Vitamin B12 Urine Opiates Screen Urine Methadone Screen Ur Barbiturates Screen Ur Phencyclidine Scrn Ur Amphetamines Screen U Methamphetamin-MDMA U Benzodiazepines Scrn Urine Cocaine Screen U Cannabinoids Screen Ur Drug Screen Comment Assessment/Plan Active and Suspected Problems (Last Updated 06/12/17 @ 13:43 by Lobo Cheng DO) Mental status alteration (Acute) The patient is a 77 year old CM with PMH HTN, 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 Patient is more awake than yesterday. Per patient had a stroke in January 2016, was treated at [facility], records not available at present, is on ASA at baseline, is allergic to statins per , later had a fall on June 09 2017, needed [facility] IP RU admission for about 3 weeks, following which as doing home PT/OT, had another fall on July 13 2017, was brought to the [facility] ED where CT head was reported normal and patient was not admitted, later had another fall the next day but did not seek any medical advise, now comes with AMS, felt he was very restless this morning and was confused with AMS, has been using walker since the fall in May 2017, had 2 more falls, and has balance issues per , does not drive and does need some assistance with his ADLs. CT head done on this admission was reported to be normal, MRI brain reported normal, MRA head/neck reported to 50% stenosis in the right petrous and paraclinoid ICA. SBP on admission was in 200s. Per documentation patient had WEST on admission. NO fever, sick contact or recent travel. No overt parkinsonian symptoms at present. Impression AMS Possible Metabolic encephalopathy ?Hypertensive encephalopathy Repeated Falls Plan -CT head-nothing acute -MRI brain images reviewed- nothing acute -MRA head/neck- reported to show 50% stenosis in the right paraclinoid and petrous ICA -MRI C spine w/o contrast report reviewed- moderate canal stenosis at C6/C7 and MRI Lumbar spine w/o contrast-moderate L5/S1 foraminal stenosis. Recommend spine surgery consult as outpatient for evaluation and management of cervical stenosis. -Labs brzdwige-YME-7.1, Cr-0.88, UA neg, US neg, LFTs, ammonia normal, TSH normal, Vitamin B12 pending -Further medical management of HTN per primary team -May need EMG/NCS as outpatient -GI/DVT prophylaxis -PT/OT -Fall precautions -Patient can follow up with his Neurologist at outpatient at [facility] 2-3 weeks after discharge -Please call with questions if any -Thank you for allowing us to participate in patient's care and management I spent 30 minutes taking history, doing physical examination, reviewing medical records, coordinating care and counseling the patient.
[2017-07-31] MEDS: Aspirin 81 MG TAB.CHEW PO (11:27)
--- NOTE | 2017-07-31 13:15 | CASEMGMT ---
SW met with patient and his as per physician he may need placement. Patient has been in rehab a lot since his stroke in May. The last 2 weeks patient has been weaker than normal. They are trying to figure why this is. At this time she said she is not sure about d/c plan. She mentioned [facility] and wondered if they are in network with their insurance. SW told her SW can check. SW to follow for possible placement. Emilia YUSUF PROPERTY SUPERVISOR
--- NOTE | 2017-07-31 16:58 | PCM.PN.HOSP ---
Patient Problems: Active and Suspected Problems (Last Updated 06/12/17 @ 13:43 by Lobo Cheng DO) Mental status alteration (Acute) Subjective: Patient was seen and examined. He denies any new complaints. Discussed extensively with the and with the neurologist, patient has been progressively getting worse. Of note his workup for stroke has been negative. History of recurrent falls and worsening debility, MRI of the C-spine was ordered in the morning. Yet to be assessed by physical and occupational therapy. Objective: Physical Exam General: Alert, Oriented x3, Cooperative, not pale or jaundiced, lethargic HEENT: Atraumatic, PERRLA, EOMI, Normocephalic Neck: Supple, No JVD, Negative Carotid Bruits Lungs: Clear to auscultation, Normal air movement Cardiovascular: Regular rate, No murmurs Abdomen: Bowel Sounds Present, Soft, Non Tender Extremities: No edema, Capillary Refill Less than 3 Seconds Skin: No rashes, No breakdown Musculoskeletal: No Tenderness to Palpation of Joints or Extremities Neurological: Cranial nerves II-XII grossly intact, - - Generalized weakness Psych/Mental Status: Normal Affect, Appropriate Vitals/I&O's: Vital Signs Temp Pulse Resp BP Pulse Ox 98.4 F 76 18 110/56 L 96 07/31/17 16:00 07/31/17 16:00 07/31/17 16:00 07/31/17 16:00 07/31/17 16:00 Oxygen Delivery Method Bi-pap Weight: 92.2 kg Body Mass Index (BMI) 26.1 Intake and Output for Last 24 Hours 07/29/17 07/30/17 07/31/17 23:59 23:59 23:59 Intake Total 1196.6 / 1196.6 1046 / 1046 Balance 1196.6 / 1196.6 1046 / 1046 Microbiology Past 72 Hours 07/30/17 09:54 Blood Culture (Wb) - Right Forearm Bacteria Detection (PCR) - Final Staphylococcus epidermidis 07/30/17 09:54 Blood Culture (Wb) - Right Forearm Blood Culture - Preliminary 07/30/17 09:10 Urine Catheter - Catheter Urine Culture - Preliminary Culture exhibits no growth. Laboratory Results 07/30/17 09:54: Vitamin B12 > 2000 H 07/31/17 05:15: WBC 7.3, RBC 4.51 L, Hgb 13.9, Hct 41.2, MCV 91.4, MCH 30.8, MCHC 33.7, RDW 13.1, RDW Differential 43.5, Plt Count 154, MPV 10.5, Immature Gran % (Auto) 0.100, Neut % (Auto) 72.2 H, Lymph % (Auto) 19.9, [place] % (Auto) 7.4, Eos % (Auto) 0.1, Baso % (Auto) 0.3, Absolute Neuts (auto) 5.2, Absolute Lymphs (auto) 1.45, Total Counted Not Reportable 07/31/17 05:15: Sodium 136, Potassium 3.7, Chloride 102, Carbon Dioxide 25.0, Anion Gap 9, BUN 13, Creatinine 0.66 L, Estim Creat Clear Calc 73.07, Est GFR (MDRD) Af Amer 151, Est GFR (MDRD) Non-Af 125, BUN/Creatinine Ratio 19.8, Glucose 132 H, Calcium 8.7, Triglycerides 141, Cholesterol 126, LDL Cholesterol 54, VLDL Cholesterol 28, HDL Cholesterol 44 Current Medications Acetaminophen (Tylenol) 650 mg PO Q4H PRN PRN PRN Reason: PAIN Aspirin (Aspirin, Baby) 81 mg PO DAILY@0800 [facility] Last Admin: 07/31/17 11:27 Dose: 81 mg Famotidine (Pepcid) 20 mg PO BID [facility] Last Admin: 07/31/17 10:23 Dose: 20 mg Heparin Sodium (Porcine) () 5,000 units SC Q8 [facility] Last Admin: 07/31/17 13:49 Dose: 5,000 units Hydralazine HCl (Apresoline) 10 mg IV Q4H PRN PRN PRN Reason: for SBP > 150 Last Admin: 07/31/17 04:16 Dose: 10 mg Lisinopril (Zestril) 10 mg PO DAILY [facility] Last Admin: 07/31/17 10:23 Dose: 10 mg Magnesium Hydroxide (Milk Of Magnesia) 30 ml PO DAILY PRN PRN PRN Reason: Constipation [facility] Admin: 07/31/17 10:23 Dose: 1 tablet Sodium Chloride () 5 - 30 ml IV UD PRN PRN Reason: SALINE FLUSH Last Admin: 07/30/17 17:36 Dose: 10 ml Assessment/Plan Active and Suspected Problems (Last Updated 06/12/17 @ 13:43 by Lobo Cheng DO) Mental status alteration (Acute) 77 year old male with history of hypertension, tongue CA, CVA with residual left sided weakness admitted for mental status changes. 1. Altered Mental status/metabolic encephalopathy, unclear etiology, stroke work-up unremarkable, TSH, B12, folate, ammonia, drug screen negative. Will continue to monitor, if persistent, will get an ABG 2. Hypertension, admitting blood pressure was uncontrolled, blood pressures are better controlled 3. H/o CVA with subdural left sided weakness, on aspirin, off statin recently on account of myalgias and difficulty ambulating 4. DVT PPx with Heparin SC Code Visit Inpatient E&M: 69499 Subs Hosp L2
--- NOTE | 2017-07-31 17:14 | PN_ITS ---
Patient Problems: Active and Suspected Problems (Last Updated 06/12/17 @ 13:43 by Lobo Cheng DO) Mental status alteration (Acute) Subjective: Patient was seen and examined. He denies any new complaints. Discussed extensively with the and with the neurologist, patient has been progressively getting worse. Of note his workup for stroke has been negative. History of recurrent falls and worsening debility, MRI of the C-spine was ordered in the morning. Yet to be assessed by physical and occupational therapy. Objective: Physical Exam General: Alert, Oriented x3, Cooperative, not pale or jaundiced, lethargic HEENT: Atraumatic, PERRLA, EOMI, Normocephalic Neck: Supple, No JVD, Negative Carotid Bruits Lungs: Clear to auscultation, Normal air movement Cardiovascular: Regular rate, No murmurs Abdomen: Bowel Sounds Present, Soft, Non Tender Extremities: No edema, Capillary Refill Less than 3 Seconds Skin: No rashes, No breakdown Musculoskeletal: No Tenderness to Palpation of Joints or Extremities Neurological: Cranial nerves II-XII grossly intact, - - Generalized weakness Psych/Mental Status: Normal Affect, Appropriate Vitals/I&O's: Vital Signs Temp Pulse Resp BP Pulse Ox 98.4 F 76 18 110/56 L 96 07/31/17 16:00 07/31/17 16:00 07/31/17 16:00 07/31/17 16:00 07/31/17 16:00 Oxygen Delivery Method Bi-pap Weight: 92.2 kg Body Mass Index (BMI) 26.1 Intake and Output for Last 24 Hours 07/29/17 07/30/17 07/31/17 23:59 23:59 23:59 Intake Total 1196.6 / 1196.6 1046 / 1046 Balance 1196.6 / 1196.6 1046 / 1046 Microbiology Past 72 Hours 07/30/17 09:54 Blood Culture (Wb) - Right Forearm Bacteria Detection (PCR) - Final Staphylococcus epidermidis 07/30/17 09:54 Blood Culture (Wb) - Right Forearm Blood Culture - Preliminary 07/30/17 09:10 Urine Catheter - Catheter Urine Culture - Preliminary Culture exhibits no growth. Laboratory Results 07/30/17 09:54: Vitamin B12 > 2000 H 07/31/17 05:15: WBC 7.3, RBC 4.51 L, Hgb 13.9, Hct 41.2, MCV 91.4, MCH 30.8, MCHC 33.7, RDW 13.1, RDW Differential 43.5, Plt Count 154, MPV 10.5, Immature Gran % (Auto) 0.100, Neut % (Auto) 72.2 H, Lymph % (Auto) 19.9, [place] % (Auto) 7.4, Eos % (Auto) 0.1, Baso % (Auto) 0.3, Absolute Neuts (auto) 5.2, Absolute Lymphs (auto) 1.45, Total Counted Not Reportable 07/31/17 05:15: Sodium 136, Potassium 3.7, Chloride 102, Carbon Dioxide 25.0, Anion Gap 9, BUN 13, Creatinine 0.66 L, Estim Creat Clear Calc 73.07, Est GFR ( MDRD) Af Amer 151, Est GFR (MDRD) Non-Af 125, BUN/Creatinine Ratio 19.8, Glucose 132 H, Calcium 8.7, Triglycerides 141, Cholesterol 126, LDL Cholesterol 54, VLDL Cholesterol 28, HDL Cholesterol 44 Current Medications Acetaminophen (Tylenol) 650 mg PO Q4H PRN PRN PRN Reason: PAIN Aspirin (Aspirin, Baby) 81 mg PO DAILY@0800 [facility] Last Admin: 07/31/17 11:27 Dose: 81 mg Famotidine (Pepcid) 20 mg PO BID [facility] Last Admin: 07/31/17 10:23 Dose: 20 mg Heparin Sodium (Porcine) () 5,000 units SC Q8 [facility] Last Admin: 07/31/17 13:49 Dose: 5,000 units Hydralazine HCl (Apresoline) 10 mg IV Q4H PRN PRN PRN Reason: for SBP > 150 Last Admin: 07/31/17 04:16 Dose: 10 mg Lisinopril (Zestril) 10 mg PO DAILY [facility] Last Admin: 07/31/17 10:23 Dose: 10 mg Magnesium Hydroxide (Milk Of Magnesia) 30 ml PO DAILY PRN PRN PRN Reason: Constipation [facility]it[facility]) [facility] Last Admin: 07/31/17 10:23 Dose: 1 tablet Sodium Chloride () 5 - 30 ml IV UD PRN PRN Reason: SALINE FLUSH Last Admin: 07/30/17 17:36 Dose: 10 ml Assessment/Plan Active and Suspected Problems (Last Updated 06/12/17 @ 13:43 by Lobo Cheng DO) Mental status alteration (Acute) 77 year old male with history of hypertension, tongue CA, CVA with residual left sided weakness admitted for mental status changes. 1. Altered Mental status/metabolic encephalopathy, unclear etiology, stroke work -up unremarkable, TSH, B12, folate, ammonia, drug screen negative. Will continue to monitor, if persistent, will get an ABG 2. Hypertension, admitting blood pressure was uncontrolled, blood pressures are better controlled 3. H/o CVA with subdural left sided weakness, on aspirin, off statin recently on account of myalgias and difficulty ambulating 4. DVT PPx with Heparin SC Code Visit Inpatient E&M: 11228 Subs Hosp L2
[2017-08-01] VITALS (14 sets, daily range): BP systolic 121–169; BP diastolic 68–85; PULSE 64–84; RESP 16–18; TEMP 36.7–37; O2SAT 94–95; BMI 26.1
[2017-08-01] MEDS: 0.9% NaCl Peripheral Flush Adult/Peds IV (03:59)
[2017-08-01 06:06] LABS: Anion Gap 10 (5-15); BUN 17 mg/dL (7-18); BUN/Creat Ratio 24.5 RATIO (10-20); Calcium,Total 8.9 mg/dL (8.5-10.1); Chloride 102 mmol/L (98-107); Creatinine, Serum 0.69 mg/dL (0.70-1.30); EST Glomerular Filtration Rate 118 mL/min (>60); Est Glom Filt Rate - Afr Amer 143 mL/min (>60); Estimated Creatinine Clearance 73.07 ml/min; Glucose 137 mg/dL (74-106); Potassium 3.6 mmol/L (3.5-5.1); Sodium Level 136 mmol/L (136-145)
[2017-08-01] MEDS: Heparin Injection 5,000 UNITS/ML Syringe 5000 UNITS SC ×3 (07:10→21:48)
[2017-08-01] MEDS: Aspirin 81 MG TAB.CHEW PO (09:49)
[2017-08-01] MEDS: Multivitamins,Therapeutic Tablet 1 TABLET PO (09:49)
[2017-08-01] MEDS: Famotidine 20 MG Tablet PO ×2 (09:49→21:48)
[2017-08-01] MEDS: Lisinopril 10 MG Tablet PO (09:49)
--- NOTE | 2017-08-01 12:58 | CASEMGMT ---
Addendum entered by Emilia Julio 08/01/17 13:29: HANDY spoke with Kisha in the rehab unit. It was decided that skilled nursing level of care would be more appropriate for patient. Plan: [facility] Emilia ESTRADA Original Note: HANDY called [facility] and made a referral. Kelly called SW back and said that at this time they are not able to accept patient. When asked why she said they are concerned if he would need halfway, they do not have any halfway beds available. Physician then spoke with SW and she asked if patient could go to the 4th floor rehab unit. SW told her he does not have a qualifying diagnosis and he was just d/c from there beginning of June. However, SW told her SW will make a referral. HANDY called Kisha in the rehab unit and left a message with the referral. HANDY spoke with patient's and told her SW made a referral to the rehab unit, but SW cannot guarantee they will take him as he does not have a qualifying diagnosis and it does not look like he would be able to do 3 hours of therapy. HANDY gave her a list of facilities and told her [facility] has said they cannot take him. She said she would like TCU. HANDY told her that TCU is short term so if he ended up needing halfway he will have to be transferred to another facility. She verbalized understanding. HANDY spoke with [place] in TCU and she will have a bed for patient . SW will let physician and patient's know this information. Also, this is provided rehab will not accept patient. Emilia ESTRADA
[2017-08-01] MEDS: Acetaminophen 325 MG Tablet 650 MG PO (13:35)
--- NOTE | 2017-08-01 16:49 | PCM.PN.HOSP ---
Patient Problems: Active and Suspected Problems (Last Updated 06/12/17 @ 13:43 by Lobo Cheng DO) Mental status alteration (Acute) Subjective: Patient was seen and examined. He seems to be using the CPAP machine more. No acute events overnight. Had a very long discussion with his over plan of care - I updated her with all lab results, imaging results etc. Discussed discharge disposition options with her, care managers will follow-up. Objective: Physical Exam General: Alert, Oriented x2, Cooperative, not pale or jaundiced, HEENT: Atraumatic, PERRLA, EOMI, Normocephalic Neck: Supple, No JVD, Negative Carotid Bruits Lungs: Clear to auscultation, Normal air movement Cardiovascular: Regular rate, No murmurs Abdomen: Bowel Sounds Present, Soft, Non Tender Extremities: No edema, Capillary Refill Less than 3 Seconds Skin: No rashes, No breakdown Musculoskeletal: No Tenderness to Palpation of Joints or Extremities Neurological: Cranial nerves II-XII grossly intact, - - Generalized weakness Psych/Mental Status: Normal Affect, Appropriate Vitals/I&O's: Vital Signs Temp Pulse Resp BP Pulse Ox 98.4 F 79 18 121/85 H 94 08/01/17 14:34 08/01/17 15:16 08/01/17 14:34 08/01/17 14:34 08/01/17 14:34 Oxygen Delivery Method Room Air Weight: 92.2 kg Body Mass Index (BMI) 26.1 Intake and Output for Last 24 Hours 07/30/17 07/31/17 08/01/17 23:59 23:59 23:59 Intake Total 1196.6 / 1196.6 1286 / 1286 640 / 640 Output Total 100 / 100 Balance 1196.6 / 1196.6 1186 / 1186 640 / 640 Microbiology Past 72 Hours 07/30/17 09:10 Urine Catheter - Catheter Urine Culture - Final Culture exhibits no growth. 07/30/17 09:54 Blood Culture (Wb) - Right Forearm Bacteria Detection (PCR) - Final Staphylococcus epidermidis 07/30/17 09:54 Blood Culture (Wb) - Right Forearm Blood Culture - Preliminary Staphylococcus epidermidis Laboratory Results 08/01/17 05:35: Sodium 136, Potassium 3.6, Chloride 102, Carbon Dioxide 24.0, Anion Gap 10, BUN 17, Creatinine 0.69 L, Estim Creat Clear Calc 73.07, Est GFR (MDRD) Af Amer 143, Est GFR (MDRD) Non-Af 118, BUN/Creatinine Ratio 24.5 H, Glucose 137 H, Calcium 8.9 Current Medications Acetaminophen (Tylenol) 650 mg PO Q4H PRN PRN PRN Reason: PAIN Last Admin: 08/01/17 13:35 Dose: 650 mg Aspirin (Aspirin, Baby) 81 mg PO DAILY@0800 [facility] Last Admin: 08/01/17 09:49 Dose: 81 mg Docusate Sodium (Colace) 100 mg PO BID PRN PRN PRN Reason: Constipation Famotidine (Pepcid) 20 mg PO BID [facility] Last Admin: 08/01/17 09:49 Dose: 20 mg Heparin Sodium (Porcine) () 5,000 units SC Q8 [facility] Last Admin: 08/01/17 13:59 Dose: 5,000 units Hydralazine HCl (Apresoline) 10 mg IV Q4H PRN PRN PRN Reason: for SBP > 150 Last Admin: 08/01/17 03:58 Dose: 10 mg Lisinopril (Zestril) 10 mg PO DAILY [facility] Last Admin: 08/01/17 09:49 Dose: 10 mg Magnesium Hydroxide (Milk Of Magnesia) 30 ml PO DAILY PRN PRN PRN Reason: Constipation [facility]) [facility] Last Admin: 08/01/17 09:49 Dose: 1 tablet Sodium Chloride () 5 - 30 ml IV UD PRN PRN Reason: SALINE FLUSH Last Admin: 08/01/17 03:59 Dose: 10 ml Assessment/Plan Active and Suspected Problems (Last Updated 06/12/17 @ 13:43 by Lobo Cheng DO) Mental status alteration (Acute) 77 year old male with history of hypertension, tongue CA, CVA with residual left sided weakness admitted for mental status changes. 1. Altered Mental status/metabolic encephalopathy, unclear etiology,resolved, patient is alert and oriented x 2. stroke work-up unremarkable, TSH, B12, folate, ammonia, drug screen negative. Suspect that this might be progression of his cognitive impairment/vascular dementia. Will need to follow-up with neurologist in outpatient. 2. RAYNA on CPAP 3. Hypertension, admitting blood pressure was uncontrolled, blood pressures are better controlled 4. H/o CVA with subdural left sided weakness, on aspirin, off statin recently on account of myalgias and difficulty ambulating 5. DVT PPx with Heparin SC Code Visit Inpatient E&M: 03737 Subs Hosp L2
--- NOTE | 2017-08-01 16:57 | PN_ITS ---
Patient Problems: Active and Suspected Problems (Last Updated 06/12/17 @ 13:43 by Lobo Cheng DO) Mental status alteration (Acute) Subjective: Patient was seen and examined. He seems to be using the CPAP machine more. No acute events overnight. Had a very long discussion with his over plan of care - I updated her with all lab results, imaging results etc. Discussed discharge disposition options with her, care managers will follow-up. Objective: Physical Exam General: Alert, Oriented x2, Cooperative, not pale or jaundiced, HEENT: Atraumatic, PERRLA, EOMI, Normocephalic Neck: Supple, No JVD, Negative Carotid Bruits Lungs: Clear to auscultation, Normal air movement Cardiovascular: Regular rate, No murmurs Abdomen: Bowel Sounds Present, Soft, Non Tender Extremities: No edema, Capillary Refill Less than 3 Seconds Skin: No rashes, No breakdown Musculoskeletal: No Tenderness to Palpation of Joints or Extremities Neurological: Cranial nerves II-XII grossly intact, - - Generalized weakness Psych/Mental Status: Normal Affect, Appropriate Vitals/I&O's: Vital Signs Temp Pulse Resp BP Pulse Ox 98.4 F 79 18 121/85 H 94 08/01/17 14:34 08/01/17 15:16 08/01/17 14:34 08/01/17 14:34 08/01/17 14:34 Oxygen Delivery Method Room Air Weight: 92.2 kg Body Mass Index (BMI) 26.1 Intake and Output for Last 24 Hours 07/30/17 07/31/17 08/01/17 23:59 23:59 23:59 Intake Total 1196.6 / 1196.6 1286 / 1286 640 / 640 Output Total 100 / 100 Balance 1196.6 / 1196.6 1186 / 1186 640 / 640 Microbiology Past 72 Hours 07/30/17 09:10 Urine Catheter - Catheter Urine Culture - Final Culture exhibits no growth. 07/30/17 09:54 Blood Culture (Wb) - Right Forearm Bacteria Detection (PCR) - Final Staphylococcus epidermidis 07/30/17 09:54 Blood Culture (Wb) - Right Forearm Blood Culture - Preliminary Staphylococcus epidermidis Laboratory Results 08/01/17 05:35: Sodium 136, Potassium 3.6, Chloride 102, Carbon Dioxide 24.0, Anion Gap 10, BUN 17, Creatinine 0.69 L, Estim Creat Clear Calc 73.07, Est GFR ( MDRD) Af Amer 143, Est GFR (MDRD) Non-Af 118, BUN/Creatinine Ratio 24.5 H, Glucose 137 H, Calcium 8.9 Current Medications Acetaminophen (Tylenol) 650 mg PO Q4H PRN PRN PRN Reason: PAIN Last Admin: 08/01/17 13:35 Dose: 650 mg Aspirin (Aspirin, Baby) 81 mg PO DAILY@0800 [facility] Last Admin: 08/01/17 09:49 Dose: 81 mg Docusate Sodium (Colace) 100 mg PO BID PRN PRN PRN Reason: Constipation Famotidine (Pepcid) 20 mg PO BID [facility] Last Admin: 08/01/17 09:49 Dose: 20 mg Heparin Sodium (Porcine) () 5,000 units SC Q8 [facility] Last Admin: 08/01/17 13:59 Dose: 5,000 units Hydralazine HCl (Apresoline) 10 mg IV Q4H PRN PRN PRN Reason: for SBP > 150 Last Admin: 08/01/17 03:58 Dose: 10 mg Lisinopril (Zestril) 10 mg PO DAILY [facility] Last Admin: 08/01/17 09:49 Dose: 10 mg Magnesium Hydroxide (Milk Of Magnesia) 30 ml PO DAILY PRN PRN PRN Reason: Constipation [facility]it[facility] ([facility]) [facility] Last Admin: 08/01/17 09:49 Dose: 1 tablet Sodium Chloride () 5 - 30 ml IV UD PRN PRN Reason: SALINE FLUSH Last Admin: 08/01/17 03:59 Dose: 10 ml Assessment/Plan Active and Suspected Problems (Last Updated 06/12/17 @ 13:43 by Lobo Cheng DO) Mental status alteration (Acute) 77 year old male with history of hypertension, tongue CA, CVA with residual left sided weakness admitted for mental status changes. 1. Altered Mental status/metabolic encephalopathy, unclear etiology,resolved, patient is alert and oriented x 2. stroke work-up unremarkable, TSH, B12, folate, ammonia, drug screen negative. Suspect that this might be progression of his cognitive impairment/vascular dementia. Will need to follow-up with neurologist in outpatient. 2. RAYNA on CPAP 3. Hypertension, admitting blood pressure was uncontrolled, blood pressures are better controlled 4. H/o CVA with subdural left sided weakness, on aspirin, off statin recently on account of myalgias and difficulty ambulating 5. DVT PPx with Heparin SC Code Visit Inpatient E&M: 83949 Subs Hosp L2
[2017-08-02] VITALS (13 sets, daily range): BP systolic 121–150; BP diastolic 68–85; PULSE 63–75; RESP 16–18; TEMP 36.1–36.8; O2SAT 93–97; BMI 26.1
[2017-08-02] MEDS: Heparin Injection 5,000 UNITS/ML Syringe 5000 UNITS SC ×3 (05:20→21:18)
[2017-08-02] MEDS: Famotidine 20 MG Tablet PO ×2 (08:15→21:14)
[2017-08-02] MEDS: Aspirin 81 MG TAB.CHEW PO (08:15)
[2017-08-02] MEDS: Multivitamins,Therapeutic Tablet 1 TABLET PO (08:15)
[2017-08-02] MEDS: Lisinopril 10 MG Tablet PO ×2 (08:15→09:51)
--- NOTE | 2017-08-02 09:00 | PCM.PN.HOSP ---
Patient Problems: Active and Suspected Problems (Last Updated 06/12/17 @ 13:43 by Lobo Cheng DO) Mental status alteration (Acute) Subjective: Patient was seen and examined. He is much more awake and alert to me. Alert, oriented to self and partially to time not to place, year, month. Denies chest pain, dizziness, palpitations. Care managers updated me that TCU is willing to accept but tomorrow. Objective: Physical Exam General: Alert, Oriented x2, Cooperative, not pale or jaundiced, HEENT: Atraumatic, PERRLA, EOMI, Normocephalic Neck: Supple, No JVD, Negative Carotid Bruits Lungs: Clear to auscultation, Normal air movement Cardiovascular: Regular rate, No murmurs Abdomen: Bowel Sounds Present, Soft, Non Tender Extremities: No edema, Capillary Refill Less than 3 Seconds Skin: No rashes, No breakdown Musculoskeletal: No Tenderness to Palpation of Joints or Extremities Neurological: Cranial nerves II-XII grossly intact, - - Generalized weakness, more on the left side Psych/Mental Status: Normal Affect, Appropriate Vitals/I&O's: Vital Signs Temp Pulse Resp BP Pulse Ox 98.2 F 63 18 145/80 H 94 08/02/17 06:48 08/02/17 07:14 08/02/17 08:23 08/02/17 06:48 08/02/17 06:48 Oxygen Delivery Method Room Air Weight: 92.2 kg Body Mass Index (BMI) 26.1 Intake and Output for Last 24 Hours 07/31/17 08/01/17 08/02/17 23:59 23:59 23:59 Intake Total 1286 / 1286 1190 / 1190 100 / 100 Output Total 100 / 100 300 / 300 Balance 1186 / 1186 890 / 890 100 / 100 Microbiology Past 72 Hours 07/30/17 09:10 Urine Catheter - Catheter Urine Culture - Final Culture exhibits no growth. 07/30/17 09:54 Blood Culture (Wb) - Right Forearm Bacteria Detection (PCR) - Final Staphylococcus epidermidis 07/30/17 09:54 Blood Culture (Wb) - Right Forearm Blood Culture - Preliminary Staphylococcus epidermidis Current Medications Acetaminophen (Tylenol) 650 mg PO Q4H PRN PRN PRN Reason: PAIN Last Admin: 08/01/17 13:35 Dose: 650 mg Aspirin (Aspirin, Baby) 81 mg PO DAILY@0800 [facility] Last Admin: 08/02/17 08:15 Dose: 81 mg Docusate Sodium (Colace) 100 mg PO BID PRN PRN PRN Reason: Constipation Famotidine (Pepcid) 20 mg PO BID [facility] Last Admin: 08/02/17 08:15 Dose: 20 mg Heparin Sodium (Porcine) () 5,000 units SC Q8 [facility] Last Admin: 08/02/17 05:20 Dose: 5,000 units Hydralazine HCl (Apresoline) 10 mg IV Q4H PRN PRN PRN Reason: for SBP > 150 Last Admin: 08/01/17 03:58 Dose: 10 mg Lisinopril (Zestril) 10 mg PO DAILY [facility] Last Admin: 08/02/17 08:15 Dose: 10 mg Magnesium Hydroxide (Milk Of Magnesia) 30 ml PO DAILY PRN PRN PRN Reason: Constipation Multivitamins (Multivitamin) 1 tablet PO DAILYCM [facility] Last Admin: 08/02/17 08:15 Dose: 1 tablet Polyethylene Glycol (Miralax) 17 gm PO DAILY PRN PRN PRN Reason: Constipation Sodium Chloride () 5 - 30 ml IV UD PRN PRN Reason: SALINE FLUSH Last Admin: 08/01/17 03:59 Dose: 10 ml Assessment/Plan Active and Suspected Problems (Last Updated 06/12/17 @ 13:43 by Lobo Cheng DO) Mental status alteration (Acute) 77 year old male with history of hypertension, tongue CA, CVA with residual left sided weakness admitted for mental status changes. 1. Altered Mental status/metabolic encephalopathy, unclear etiology, resolved for the most part, patient is alert and oriented x 2. This appears to be his baseline. stroke work-up unremarkable in this admission , TSH, B12, folate, ammonia, drug screen negative. Suspect that this might be progression of his cognitive impairment/vascular dementia. Will need to follow-up with neurologist in outpatient. 2. RAYNA on CPAP, continue on that 3. Hypertension, admitting blood pressure was uncontrolled, blood pressures have been controlled until this samuel, on lisinopril 10mg daily, will increase to 20mg daily with repeat BMP in am and holding parameters. 4. H/o CVA with subdural left sided weakness, on aspirin, off statin recently on account of myalgias and difficulty ambulating 5. DVT PPx with Heparin SC Code Visit Inpatient E&M: 76843 Subs Hosp L2
--- NOTE | 2017-08-02 09:06 | PN_ITS ---
Patient Problems: Active and Suspected Problems (Last Updated 06/12/17 @ 13:43 by Lobo Cheng DO) Mental status alteration (Acute) Subjective: Patient was seen and examined. He is much more awake and alert to me. Alert, oriented to self and partially to time not to place, year, month. Denies chest pain, dizziness, palpitations. Care managers updated me that TCU is willing to accept but tomorrow. Objective: Physical Exam General: Alert, Oriented x2, Cooperative, not pale or jaundiced, HEENT: Atraumatic, PERRLA, EOMI, Normocephalic Neck: Supple, No JVD, Negative Carotid Bruits Lungs: Clear to auscultation, Normal air movement Cardiovascular: Regular rate, No murmurs Abdomen: Bowel Sounds Present, Soft, Non Tender Extremities: No edema, Capillary Refill Less than 3 Seconds Skin: No rashes, No breakdown Musculoskeletal: No Tenderness to Palpation of Joints or Extremities Neurological: Cranial nerves II-XII grossly intact, - - Generalized weakness, more on the left side Psych/Mental Status: Normal Affect, Appropriate Vitals/I&O's: Vital Signs Temp Pulse Resp BP Pulse Ox 98.2 F 63 18 145/80 H 94 08/02/17 06:48 08/02/17 07:14 08/02/17 08:23 08/02/17 06:48 08/02/17 06:48 Oxygen Delivery Method Room Air Weight: 92.2 kg Body Mass Index (BMI) 26.1 Intake and Output for Last 24 Hours 07/31/17 08/01/17 08/02/17 23:59 23:59 23:59 Intake Total 1286 / 1286 1190 / 1190 100 / 100 Output Total 100 / 100 300 / 300 Balance 1186 / 1186 890 / 890 100 / 100 Microbiology Past 72 Hours 07/30/17 09:10 Urine Catheter - Catheter Urine Culture - Final Culture exhibits no growth. 07/30/17 09:54 Blood Culture (Wb) - Right Forearm Bacteria Detection (PCR) - Final Staphylococcus epidermidis 07/30/17 09:54 Blood Culture (Wb) - Right Forearm Blood Culture - Preliminary Staphylococcus epidermidis Current Medications Acetaminophen (Tylenol) 650 mg PO Q4H PRN PRN PRN Reason: PAIN Last Admin: 08/01/17 13:35 Dose: 650 mg Aspirin (Aspirin, Baby) 81 mg PO DAILY@0800 [facility] Last Admin: 08/02/17 08:15 Dose: 81 mg Docusate Sodium (Colace) 100 mg PO BID PRN PRN PRN Reason: Constipation Famotidine (Pepcid) 20 mg PO BID [facility] Last Admin: 08/02/17 08:15 Dose: 20 mg Heparin Sodium (Porcine) () 5,000 units SC Q8 [facility] Last Admin: 08/02/17 05:20 Dose: 5,000 units Hydralazine HCl (Apresoline) 10 mg IV Q4H PRN PRN PRN Reason: for SBP > 150 Last Admin: 08/01/17 03:58 Dose: 10 mg Lisinopril (Zestril) 10 mg PO DAILY [facility] Last Admin: 08/02/17 08:15 Dose: 10 mg Magnesium Hydroxide (Milk Of Magnesia) 30 ml PO DAILY PRN PRN PRN Reason: Constipation Multivitamins (Multivitamin) 1 tablet PO DAILYCM [facility] Last Admin: 08/02/17 08:15 Dose: 1 tablet Polyethylene Glycol (Miralax) 17 gm PO DAILY PRN PRN PRN Reason: Constipation Sodium Chloride () 5 - 30 ml IV UD PRN PRN Reason: SALINE FLUSH Last Admin: 08/01/17 03:59 Dose: 10 ml Assessment/Plan Active and Suspected Problems (Last Updated 06/12/17 @ 13:43 by Lobo Cheng DO) Mental status alteration (Acute) 77 year old male with history of hypertension, tongue CA, CVA with residual left sided weakness admitted for mental status changes. 1. Altered Mental status/metabolic encephalopathy, unclear etiology, resolved for the most part, patient is alert and oriented x 2. This appears to be his baseline. stroke work-up unremarkable in this admission , TSH, B12, folate, ammonia, drug screen negative. Suspect that this might be progression of his cognitive impairment/vascular dementia. Will need to follow-up with neurologist in outpatient. 2. RAYNA on CPAP, continue on that 3. Hypertension, admitting blood pressure was uncontrolled, blood pressures have been controlled until this samuel, on lisinopril 10mg daily, will increase to 20mg daily with repeat BMP in am and holding parameters. 4. H/o CVA with subdural left sided weakness, on aspirin, off statin recently on account of myalgias and difficulty ambulating 5. DVT PPx with Heparin SC Code Visit Inpatient E&M: 06333 Subs Hosp L2
--- NOTE | 2017-08-02 15:43 | NURSING ---
This RN taking over care at this time
[2017-08-03] VITALS (9 sets, daily range): BP systolic 141–160; BP diastolic 59–95; PULSE 62–83; RESP 16; TEMP 36.1–36.9; O2SAT 93–97; BMI 26.1
[2017-08-03] MEDS: Heparin Injection 5,000 UNITS/ML Syringe 5000 UNITS SC ×3 (05:29→21:06)
[2017-08-03 06:52] LABS: Anion Gap 8 (5-15); BUN 24 mg/dL (7-18); BUN/Creat Ratio 30.2 RATIO (10-20); Calcium,Total 8.9 mg/dL (8.5-10.1); Chloride 103 mmol/L (98-107); EST Glomerular Filtration Rate 100 mL/min (>60); Est Glom Filt Rate - Afr Amer 122 mL/min (>60); Estimated Creatinine Clearance 91.33 ml/min; Glucose 116 mg/dL (74-106); Potassium 4.2 mmol/L (3.5-5.1); Sodium Level 138 mmol/L (136-145)
[2017-08-03] MEDS: Famotidine 20 MG Tablet PO ×2 (09:03→21:06)
[2017-08-03] MEDS: Multivitamins,Therapeutic Tablet 1 TABLET PO (09:04)
[2017-08-03] MEDS: Aspirin 81 MG TAB.CHEW PO (09:04)
[2017-08-03] MEDS: Lisinopril 20 MG Tablet PO (09:04)
--- NOTE | 2017-08-03 15:18 | PCM.PN.HOSP ---
Patient Problems: Active and Suspected Problems (Last Updated 06/12/17 @ 13:43 by Lobo Cheng DO) Mental status alteration (Acute) Subjective: Patient was seen and examined. No new complains. Denies any fever or chills or SOB. Waiting on discharge to TCU - expected to be on Monday morning. Objective: Physical Exam General: Alert, Oriented x2, Cooperative, not pale or jaundiced, HEENT: Atraumatic, PERRLA, EOMI, Normocephalic Neck: Supple, No JVD, Negative Carotid Bruits Lungs: Clear to auscultation, Normal air movement Cardiovascular: Regular rate, No murmurs Abdomen: Bowel Sounds Present, Soft, Non Tender Extremities: No edema, Capillary Refill Less than 3 Seconds Skin: No rashes, No breakdown Musculoskeletal: No Tenderness to Palpation of Joints or Extremities Neurological: Cranial nerves II-XII grossly intact, - - Generalized weakness, more on the left side Psych/Mental Status: Normal Affect, Appropriate Vitals/I&O's: Vital Signs Temp Pulse Resp BP Pulse Ox 98.4 F 83 16 148/59 H 96 08/03/17 15:00 08/03/17 15:00 08/03/17 15:00 08/03/17 15:00 08/03/17 15:00 Oxygen Delivery Method Room Air Weight: 92.2 kg Body Mass Index (BMI) 26.1 Intake and Output for Last 24 Hours 08/01/17 08/02/17 08/03/17 23:59 23:59 23:59 Intake Total 1190 / 1190 940 / 940 540 / 540 Output Total 300 / 300 Balance 890 / 890 940 / 940 540 / 540 Microbiology Past 72 Hours 07/30/17 09:54 Blood Culture (Wb) - Right Forearm Bacteria Detection (PCR) - Final Staphylococcus epidermidis 07/30/17 09:54 Blood Culture (Wb) - Right Forearm Blood Culture - Preliminary Staphylococcus epidermidis 07/30/17 09:10 Urine Catheter - Catheter Urine Culture - Final Culture exhibits no growth. Laboratory Results 08/03/17 05:55: Sodium 138, Potassium 4.2, Chloride 103, Carbon Dioxide 27.0, Anion Gap 8, BUN 24 H, Creatinine 0.80, Estim Creat Clear Calc 91.33, Est GFR (MDRD) Af Amer 122, Est GFR (MDRD) Non-Af 100, BUN/Creatinine Ratio 30.2 H, Glucose 116 H, Calcium 8.9 Current Medications Acetaminophen (Tylenol) 650 mg PO Q4H PRN PRN PRN Reason: PAIN Last Admin: 08/01/17 13:35 Dose: 650 mg Aspirin (Aspirin, Baby) 81 mg PO DAILY@0800 [facility] Last Admin: 08/03/17 09:04 Dose: 81 mg Docusate Sodium (Colace) 100 mg PO BID PRN PRN PRN Reason: Constipation Famotidine (Pepcid) 20 mg PO BID [facility] Last Admin: 08/03/17 09:03 Dose: 20 mg Heparin Sodium (Porcine) () 5,000 units SC Q8 [facility] Last Admin: 08/03/17 14:00 Dose: 5,000 units Hydralazine HCl (Apresoline) 10 mg IV Q4H PRN PRN PRN Reason: for SBP > 150 Last Admin: 08/01/17 03:58 Dose: 10 mg Lisinopril (Zestril) 20 mg PO DAILY [facility] Last Admin: 08/03/17 09:04 Dose: 20 mg Magnesium Hydroxide (Milk Of Magnesia) 30 ml PO DAILY PRN PRN PRN Reason: Constipation Multivitamins (Multivitamin) 1 tablet PO DAILYCM [facility] Last Admin: 08/03/17 09:04 Dose: 1 tablet Polyethylene Glycol (Miralax) 17 gm PO DAILY PRN PRN PRN Reason: Constipation Sodium Chloride () 5 - 30 ml IV UD PRN PRN Reason: SALINE FLUSH Last Admin: 08/01/17 03:59 Dose: 10 ml Assessment/Plan Active and Suspected Problems (Last Updated 06/12/17 @ 13:43 by Lobo Cheng DO) Mental status alteration (Acute) 77 year old male with history of hypertension, tongue CA, CVA with residual left sided weakness admitted for mental status changes. 1. Altered Mental status/metabolic encephalopathy, unclear etiology, resolved for the most part, patient is alert and oriented x 2. This appears to be his baseline. stroke work-up unremarkable in this admission , TSH, B12, folate, ammonia, drug screen negative. Suspect that this might be progression of his cognitive impairment/vascular dementia. Will need to follow-up with neurologist in outpatient. 2. RAYNA on CPAP, continue on that 3. Hypertension, admitting blood pressure was uncontrolled, blood pressures have been controlled until this samuel, on lisinopril 10mg daily, will increase to 20mg daily with repeat BMP in am and holding parameters. 4. H/o CVA with subdural left sided weakness, on aspirin, off statin recently on account of myalgias and difficulty ambulating 5. DVT PPx with Heparin SC 6. Disposition - waiting on discharge to TCU Code Visit Inpatient E&M: 61110 Subs Hosp L2
--- NOTE | 2017-08-03 15:23 | PN_ITS ---
Patient Problems: Active and Suspected Problems (Last Updated 06/12/17 @ 13:43 by Lobo Cheng DO) Mental status alteration (Acute) Subjective: Patient was seen and examined. No new complains. Denies any fever or chills or SOB. Waiting on discharge to TCU - expected to be on Monday morning. Objective: Physical Exam General: Alert, Oriented x2, Cooperative, not pale or jaundiced, HEENT: Atraumatic, PERRLA, EOMI, Normocephalic Neck: Supple, No JVD, Negative Carotid Bruits Lungs: Clear to auscultation, Normal air movement Cardiovascular: Regular rate, No murmurs Abdomen: Bowel Sounds Present, Soft, Non Tender Extremities: No edema, Capillary Refill Less than 3 Seconds Skin: No rashes, No breakdown Musculoskeletal: No Tenderness to Palpation of Joints or Extremities Neurological: Cranial nerves II-XII grossly intact, - - Generalized weakness, more on the left side Psych/Mental Status: Normal Affect, Appropriate Vitals/I&O's: Vital Signs Temp Pulse Resp BP Pulse Ox 98.4 F 83 16 148/59 H 96 08/03/17 15:00 08/03/17 15:00 08/03/17 15:00 08/03/17 15:00 08/03/17 15:00 Oxygen Delivery Method Room Air Weight: 92.2 kg Body Mass Index (BMI) 26.1 Intake and Output for Last 24 Hours 08/01/17 08/02/17 08/03/17 23:59 23:59 23:59 Intake Total 1190 / 1190 940 / 940 540 / 540 Output Total 300 / 300 Balance 890 / 890 940 / 940 540 / 540 Microbiology Past 72 Hours 07/30/17 09:54 Blood Culture (Wb) - Right Forearm Bacteria Detection (PCR) - Final Staphylococcus epidermidis 07/30/17 09:54 Blood Culture (Wb) - Right Forearm Blood Culture - Preliminary Staphylococcus epidermidis 07/30/17 09:10 Urine Catheter - Catheter Urine Culture - Final Culture exhibits no growth. Laboratory Results 08/03/17 05:55: Sodium 138, Potassium 4.2, Chloride 103, Carbon Dioxide 27.0, Anion Gap 8, BUN 24 H, Creatinine 0.80, Estim Creat Clear Calc 91.33, Est GFR ( MDRD) Af Amer 122, Est GFR (MDRD) Non-Af 100, BUN/Creatinine Ratio 30.2 H, Glucose 116 H, Calcium 8.9 Current Medications Acetaminophen (Tylenol) 650 mg PO Q4H PRN PRN PRN Reason: PAIN Last Admin: 08/01/17 13:35 Dose: 650 mg Aspirin (Aspirin, Baby) 81 mg PO DAILY@0800 [facility] Last Admin: 08/03/17 09:04 Dose: 81 mg Docusate Sodium (Colace) 100 mg PO BID PRN PRN PRN Reason: Constipation Famotidine (Pepcid) 20 mg PO BID [facility] Last Admin: 08/03/17 09:03 Dose: 20 mg Heparin Sodium (Porcine) () 5,000 units SC Q8 [facility] Last Admin: 08/03/17 14:00 Dose: 5,000 units Hydralazine HCl (Apresoline) 10 mg IV Q4H PRN PRN PRN Reason: for SBP > 150 Last Admin: 08/01/17 03:58 Dose: 10 mg Lisinopril (Zestril) 20 mg PO DAILY [facility] Last Admin: 08/03/17 09:04 Dose: 20 mg Magnesium Hydroxide (Milk Of Magnesia) 30 ml PO DAILY PRN PRN PRN Reason: Constipation Multivitamins (Multivitamin) 1 tablet PO DAILYCM [facility] Last Admin: 08/03/17 09:04 Dose: 1 tablet Polyethylene Glycol (Miralax) 17 gm PO DAILY PRN PRN PRN Reason: Constipation Sodium Chloride () 5 - 30 ml IV UD PRN PRN Reason: SALINE FLUSH Last Admin: 08/01/17 03:59 Dose: 10 ml Assessment/Plan Active and Suspected Problems (Last Updated 06/12/17 @ 13:43 by Lobo Cheng DO) Mental status alteration (Acute) 77 year old male with history of hypertension, tongue CA, CVA with residual left sided weakness admitted for mental status changes. 1. Altered Mental status/metabolic encephalopathy, unclear etiology, resolved for the most part, patient is alert and oriented x 2. This appears to be his baseline. stroke work-up unremarkable in this admission , TSH, B12, folate, ammonia, drug screen negative. Suspect that this might be progression of his cognitive impairment/vascular dementia. Will need to follow-up with neurologist in outpatient. 2. RAYNA on CPAP, continue on that 3. Hypertension, admitting blood pressure was uncontrolled, blood pressures have been controlled until this samuel, on lisinopril 10mg daily, will increase to 20mg daily with repeat BMP in am and holding parameters. 4. H/o CVA with subdural left sided weakness, on aspirin, off statin recently on account of myalgias and difficulty ambulating 5. DVT PPx with Heparin SC 6. Disposition - waiting on discharge to TCU Code Visit Inpatient E&M: 71075 Subs Hosp L2
[2017-08-04] VITALS (7 sets, daily range): BP systolic 161–162; BP diastolic 83–94; PULSE 63–89; RESP 14–16; TEMP 36.6; O2SAT 94–95; BMI 26.1
[2017-08-04 03:48] LABS: Rapid Plasmin Reagin (RPR) NONREACTIVE (NONREACTIVE)
[2017-08-04] MEDS: Heparin Injection 5,000 UNITS/ML Syringe 5000 UNITS SC (05:39)
[2017-08-04] MEDS: Aspirin 81 MG TAB.CHEW PO (08:33)
[2017-08-04] MEDS: Multivitamins,Therapeutic Tablet 1 TABLET PO (08:34)
[2017-08-04] MEDS: Lisinopril 20 MG Tablet PO (08:34)
[2017-08-04] MEDS: Famotidine 20 MG Tablet PO (08:34)
--- NOTE | 2017-08-04 09:13 | PCM.TXEXTCAR ---
- Diet 07/31/17 10:47 Diet: Cardiac/Low Cholesterol Food consistency:: Mechanical Soft/Ground Liquid Consistency:: Regular/Thin Dietary Modifications:: Mechanical Soft Diet Is pt able to select menu?: Yes Diet Comments: Supervision by staff / family; meds w/ applesauce, check for pocketing - Routine Orders/Code Status O2 Frequency: Bipap on QHS and when sleeping Routine Lab Work: CBC - in 3 days, BMP - in 3 days Code Status: Full Code - Therapies Physical Therapy: Eval and Treat Occupational Therapy: Eval and Treat Speech Therapy: Eval and Treat - Allergies/Procedures Done in Hospital Allergies/Adverse Reactions: Allergies chocolate flavor Adverse Reaction (Unknown, Verified 07/30/17 05:32) Other Pork/Porcine Containing Products Adverse Reaction (Unknown, Verified 07/30/17 05:32) Other atorvastatin [From Lipitor] Adverse Reaction (Verified 07/30/17 05:35) Other oxybutynin Adverse Reaction (Verified 07/30/17 05:35) Other Procedures: None - Type of Care/Length of Stay Estimated LOS: Convalescent Care Less Than 30 days Type of Care Needed: Skilled Rehab Potential: Fair Prognosis: Fair - Additional Orders/Day of Discharge Day of Discharge: 08/04/17 - Dietary and Speech Recommendations Dietitian Recommendations/Changes: Suggest 1800 timur Cardiac w/ consistency and texture as per INFORMATION SECURITY RISK ANALYST. - Follow Up Care Primary Care Physician: Marcela Choi MD [Primary Care Provider] - Please follow up with your Primary Care Physician in: within 2 weeks of discharge from TCU When: within 2 weeks with primary neurologist in [facility]. May need EMG/NCS When: Follow-up with neurosurgery within 2 weeks
--- NOTE | 2017-08-04 09:18 | TREXTCAR_ITS ---
- Diet 07/31/17 10:47 Diet: Cardiac/Low Cholesterol Food consistency:: Mechanical Soft/Ground Liquid Consistency:: Regular/Thin Dietary Modifications:: Mechanical Soft Diet Is pt able to select menu?: Yes Diet Comments: Supervision by staff / family; meds w/ applesauce, check for pocketing - Routine Orders/Code Status O2 Frequency: Bipap on QHS and when sleeping Routine Lab Work: CBC - in 3 days, BMP - in 3 days Code Status: Full Code - Therapies Physical Therapy: Eval and Treat Occupational Therapy: Eval and Treat Speech Therapy: Eval and Treat - Allergies/Procedures Done in Hospital Allergies/Adverse Reactions: Allergies chocolate flavor Adverse Reaction (Unknown, Verified 07/30/17 05:32) Other Pork/Porcine Containing Products Adverse Reaction (Unknown, Verified 07/30/17 05 :32) Other atorvastatin [From Lipitor] Adverse Reaction (Verified 07/30/17 05:35) Other oxybutynin Adverse Reaction (Verified 07/30/17 05:35) Other Procedures: None - Type of Care/Length of Stay Estimated LOS: Convalescent Care Less Than 30 days Type of Care Needed: Skilled Rehab Potential: Fair Prognosis: Fair - Additional Orders/Day of Discharge Day of Discharge: 08/04/17 - Dietary and Speech Recommendations Dietitian Recommendations/Changes: Suggest 1800 timur Cardiac w/ consistency and texture as per TIRE ADJUSTER. - Follow Up Care Primary Care Physician: Marcela Choi MD [Primary Care Provider] - Please follow up with your Primary Care Physician in: within 2 weeks of discharge from TCU When: within 2 weeks with primary neurologist in [facility]. May need EMG/NCS When: Follow-up with neurosurgery within 2 weeks
--- NOTE | 2017-08-04 09:18 | PCM.DC.SUM ---
Discharge Date and Diagnosis Date of Admission: 07/30/17 Date of Discharge: 08/04/17 - Primary Discharge Diagnosis Active and Suspected Problems (Last Updated 06/12/17 @ 13:43 by Lobo Cheng DO) Mental status alteration (Acute) Cervical stenosis Debility - Secondary Discharge Diagnosis Chronic Problems (Last Updated 06/12/17 @ 13:43 by Lobo Cheng DO) Cerebrovascular disease (Chronic) Stroke (Chronic) HTN (hypertension) (Chronic) Hospital Course and Treatment Imaging Results: Clinical Impression(s) from Imaging Studies Brain CT 07/30/17 05:43 IMPRESSION: Chronic involutional changes of the brain. No demonstrated acute intracranial process. Electronically Signed: Sarabjit Alberts MD at 6:59 EST , Service support , Chest X-Ray 07/30/17 05:43 IMPRESSION: Chronic interstitial changes. Mild cardiomegaly. No evidence for acute cardiopulmonary pathology. Electronically Signed: Sarabjit Alberts MD at 6:49 EST , Service support , Brain MRI 07/30/17 08:49 IMPRESSION: 1. No MRI evidence of acute or subacute ischemic infarct. 2. Extensive confluent chronic white matter ischemic changes in both cerebral hemispheres. 3. Old lacunar cystic infarcts in both periventricular white matter and in the right ventral thalamus. Electronically Signed: Stephen Burrows MD at 14:53 EST , Service support , Head MRA 07/30/17 08:49 IMPRESSION: 1. Limited MRA of the head due to motion degradation. 2. Suspicious 50% stenosis in the ascending petrous segment and the paraclinoid segment of the right internal carotid artery. 3. No other suspicious vaso-occlusive disease of the anterior and posterior intracranial circulation. COMMENT: CTA of the head will be very helpful for further clarification if there is no contrast contraindication. Electronically Signed: Stephen Burrows MD at 15:14 EST , Service support , Neck MRA 07/30/17 08:49 IMPRESSION: 1. Normal bilateral cervical carotid and vertebral arteries. 2. Normal aortic arch and origins of the great vessels. Electronically Signed: Stephen Burrows MD at 16:03 EST , Service support , Cervical Spine MRI 07/31/17 07:11 IMPRESSION: Limited examination. C6/C7: Moderate central canal stenosis. Moderate bilateral foraminal stenosis. Electronically Signed: Aneudy Hyman MD at 11:02 EST Tel , Service support , Lumbar Spine MRI 07/31/17 07:11 IMPRESSION: L4/L5: Grade 1 degenerative anterolisthesis. L5/S1: Moderate left foraminal stenosis. Electronically Signed: Aneudy Hyman MD at 11:15 EST Tel , Service support , Neurology Operations: None Procedures: None Summary of Care Provided: 77 year old male with history of hypertension, tongue CA, CVA with residual left sided weakness admitted for mental status changes. 1. Altered Mental status/metabolic encephalopathy, unclear etiology, resolved, patient is alert and oriented x 2. This appears to be his baseline. stroke work-up unremarkable in this admission , TSH, B12, folate, ammonia, drug screen negative. Suspect that this might be progression of his cognitive impairment/vascular dementia. Will need to follow-up with neurologist in outpatient. 2. Positive staph epidermidis blood cultures secondary to skin contaminant, repeat blood cutures have been negative. 3. RANYA on CPAP, continue on that 4. Hypertension, fairlu uncontrolled, will add amlodipine 5mg po daily and continue with Lisinopril 20mg po daily 5. H/o CVA with subdural left sided weakness, on aspirin, off statin recently on account of myalgias and difficulty ambulating 6. DVT PPx with Heparin SC Discharge Diet: Low fat/ Low Cholesterol, 2000 mg Sodium Diet Discharge Activity: Return to Normal Activity Home Medications: Medications to take at Discharge Aspirin [Aspirin, Baby] 81 mg PO DAILY@0800 06/12/17 Cholecalciferol (Vitamin D3) [Vitamin D3] 5,000 unit PO DAILY 06/12/17 Multivitamins,Therapeutic [Multivitamin] 1 tablet PO DAILY 06/12/17 Cyanocobalamin (Vitamin B-12) [Vitamin B-12] 3,000 mcg PO DAILY 07/30/17 Multivit-Min/Folic Acid/Biotin [Hair, Skin and Nails Caplet] 1 each PO DAILY 07/30/17 [place]-3/Dha/Epa/Fish Oil [Fish Oil [place]-3 EC 1,200 mg] 1,200 mg PO DAILY 07/30/17 Vitamin E (Dl,Tocopheryl Acet) [Vitamin E] 400 units PO DAILY 07/30/17 Amlodipine [Norvasc] 5 mg PO DAILY 08/04/17 Docusate Sodium [Colace] 100 mg PO BID PRN PRN capsule 08/04/17 Heparin Injection 5,000 units SC Q8 08/04/17 Lisinopril [Zestril] 20 mg PO DAILY 08/04/17 Magnesium Hydroxide [Milk Of Magnesia] 30 ml PO DAILY PRN PRN udc 08/04/17 Primary Care Physician: Marcela Choi MD [Primary Care Provider] - Please follow up with your Primary Care Physician in: within 2 weeks of discharge from TCU When: within 2 weeks with primary neurologist in [facility]. May need EMG/NCS When: Follow-up with neurosurgery within 2 weeks Disposition: Home Minutes spent on discharge:: 25 Patient Condition:: Stable Meaningful Use Info Meaningful Use Diagnoses (Choose all that apply): None applicable Code Visit Inpatient E&M: 53065 Disch Hosp
[2017-08-04] MEDS: amLODIPine 5 MG Tablet PO (09:46)
--- NOTE | 2017-08-04 11:05 | CASEMGMT ---
Patient is ready for d/c today. RN aware. RN notified patient's . Med list faxed to TCU. All in agreement with d/c plan. Plan: [facility] TCU under skilled level of care. Emilia YUSUF MSW
--- NOTE | 2017-08-04 11:13 | NURSING ---
report called to Kayla SILVER in TCU
== END 2017-08-04 13:20 | disposition skilled nursing facility (03) | DRG 71 ==
LOC: ED 05:45 → PCU 07:38
PROVIDERS: Admitting Provider Internal Medicine; Emergency Provider Emergency Medicine; Family Provider Family Medicine; PCP Family Medicine; Visit Provider Internal Medicine
DX: G93.41 Metabolic encephalopathy (principal); I69.354 Hemiplegia and hemiparesis following cerebral infarction affecting left non-dominant side; M48.02 Spinal stenosis, cervical region; I10 Essential (primary) hypertension; Z85.810 Personal history of malignant neoplasm of tongue; R53.81 Other malaise; G47.33 Obstructive sleep apnea (adult) (pediatric); R29.6 Repeated falls; R41.89 Other symptoms and signs involving cognitive functions and awareness
CPT/HCPCS: 36415; 70450; 70544; 70549; 70551; 71045; 72141; 72148; 80048; 80061; 80076; 80307; 81001; 82140; 82607; 82746; 84443; 85025; 86592; 87040; 87086; 87149; 87186; 92507; 92526; 93005; 93306; 97165; 97530; 97535; 97802; 99285; A9585; A4216

== ENCOUNTER 2017-08-04 13:30 | Inpatient (IN) | payer MEDICARE, BC, SELFPAY ==
[2017-08-04 09:23] VITALS: BP 162/92
[2017-08-04 13:15] VITALS: BMI 26.1
[2017-08-04 13:46] VITALS: BP 148/75
[2017-08-04 13:50] VITALS: BP 138/79; PULSE 75; RESP 18; TEMP 37.1; O2SAT 94
--- NOTE | 2017-08-04 14:23 | NURSING ---
Pt arrived from PCU via bed altered mental status
--- NOTE | 2017-08-04 14:46 | PCM.HP.STD ---
Problem List (1) Vascular dementia Status: Chronic (2) Cervical spinal stenosis Status: Chronic (3) Left hemiparesis Status: Chronic (4) Tongue cancer Status: Chronic (5) Obstructive sleep apnea Status: Chronic (6) Hyperlipidemia Status: Chronic (7) Overactive bladder Status: Chronic (8) Mental status alteration Status: Acute (9) Generalized weakness Status: Acute (10) Stroke Status: Chronic (11) HTN (hypertension) Status: Chronic History of Present Illness Date of Admission: 08/04/17 Chief Complaint: Here for rehabilitation, strengthening, prior to discharge home with spouse. The patient is a 77 year old Male with below past medical history presented to [facility] Emergency Department 07/30/2017 with change in mental status, generalized weakness. Left sided weakness, headache. WBC 6, Cr 0.8, Glucose 170. 07/30/2017 CT brain chronic involutional changes of brain. 07/30/2017 Chest X-ray chronic interstitial changes, mild cardiomegaly. 07/30/2017 EKG normal sinus rhythm, normal EKG. 07/30/2017 Admit to Hospital. Multiple falls, several recent hospitalizations. Check labs for change in mental status. 07/30/2017 MRI brain, no acute infarct, chronic white matter ischemic changes, old lacunar infarcts bilaterally periventricular white matter and right ventral thalamus. 07/30/2017 MRA head right internal carotid artery 50% stenosis, ?motion artifact. 07/30/2017 MRA neck normal. 07/30/2017 Dr. Gloria recommended MRI cervical spine, MRI lumbar spine. 07/31/2017 MRI cervical spine C6/C7 moderate central canal stenosis. Moderate bilateral foraminal stenosis. 07/31/2017 MRI lumbar spine L4/L5 grade 1 anterolisthesis, L5/S1 moderate left foraminal stenosis. 08/03/2017 Dr. Gloria recommended spine surgery consult for cervical spinal stenosis. 08/02/2017 Echo Normal LV size. Moderate concentric LVH. LV systolic function normal. EF 60%. Bubble study negative. Mild aortic stenosis. Change in mental status possible progression of vascular dementia. Statins cause myalgias, difficulty ambulating. 08/04/2017 Admit to TCU for rehabilitation, strengthening, prior to discharge home with spouse. Past Medical History Past Medical History (Chronic Problems): Chronic Problems (Last Updated 06/12/17 @ 13:43 by Lobo Tereletsky, DO) Vascular dementia (Chronic) Cervical spinal stenosis (Chronic) Left hemiparesis (Chronic) Tongue cancer (Chronic) Obstructive sleep apnea (Chronic) Hyperlipidemia (Chronic) Overactive bladder (Chronic) Cerebrovascular disease (Chronic) Stroke (Chronic) HTN (hypertension) (Chronic) Allergies chocolate flavor Adverse Reaction (Unknown, Verified 07/30/17 05:32) Other Pork/Porcine Containing Products Adverse Reaction (Unknown, Verified 07/30/17 05:32) Other atorvastatin [From Lipitor] Adverse Reaction (Verified 07/30/17 05:35) Other oxybutynin Adverse Reaction (Verified 07/30/17 05:35) Other Home Medications: Ambulatory Orders Medication Instructions Recorded Aspirin [Aspirin, Baby] 81 mg PO DAILY@0800 06/12/17 Cholecalciferol (Vitamin D3) 5,000 unit PO DAILY 06/12/17 [Vitamin D3] Multivitamins,Therapeutic 1 tablet PO DAILY 06/12/17 [Multivitamin] Cyanocobalamin (Vitamin B-12) 3,000 mcg PO DAILY 07/30/17 [Vitamin B-12] Multivit-Min/Folic Acid/Biotin 1 each PO DAILY 07/30/17 [Hair, Skin and Nails Caplet] [place]-3/Dha/Epa/Fish Oil [Fish Oil 1,200 mg PO DAILY 07/30/17 [place]-3 EC 1,200 mg] Vitamin E (Dl,Tocopheryl Acet) 400 units PO DAILY 07/30/17 [Vitamin E] Amlodipine [Norvasc] 5 mg PO DAILY 08/04/17 Docusate Sodium [Colace] 100 mg PO BID PRN PRN capsule 08/04/17 Heparin Injection 5,000 units SC Q8 08/04/17 Lisinopril [Zestril] 20 mg PO DAILY 08/04/17 Magnesium Hydroxide [Milk Of 30 ml PO DAILY PRN PRN udc 08/04/17 Magnesia] Surgical History: total hip arthroplasty - Right hip, hemiarthroplasty., - - Tongue resection. Psychiatric History: No pertinent psych hx Lives: Spouse/ Significant Other Smoking Status: Never smoker Tobacco Use: Non-smoker Alcohol: None Drugs: None - *Family History Maternal History Items: No pertinent history Paternal History Items: No pertinent history Review of Systems Constitutional: Denies: Chills, Fever, Weight Change HEENT: Denies: Head Aches, Sinus Congestion, Sinus Drainage Cardiovascular: Denies: Chest Pain, Palpitations Respiratory: Denies: Cough, Shortness of breath at rest, Sputum production Gastrointestinal: Denies: Abdominal Pain, Nausea, Vomiting Genitourinary: Denies: Dysuria Musculoskeletal: Denies: Joint Pain, Joint Tenderness Skin: Denies: Rash, Wounds Neurological: Denies: Numbness, Tingling, Focal weakness Psychiatric: Denies: Anxiety, Depression, Homicidal Ideations, Suicidal Ideations Hematologic/ Lymphatic: Denies: Easy Bruising, Easy Bleeding VTE Information - Inpt Only VTE Present on Admission: No VTE Mechan Device Prophylaxis: Knee High KATIE Hose VTE Pharm Prophylaxis ordered?: Yes - Physical Exam General: Alert, Oriented x3, Cooperative HEENT: Atraumatic, PERRLA, EOMI, Normocephalic Neck: Supple, No JVD, Negative Carotid Bruits Lungs: Clear to auscultation, Normal air movement Cardiovascular: Regular rate, No murmurs Abdomen: Bowel Sounds Present, Soft, Non Tender Extremities: No edema, Capillary Refill Less than 3 Seconds Skin: No rashes, No breakdown Musculoskeletal: No Tenderness to Palpation of Joints or Extremities Neurological: Cranial nerves II-XII grossly intact Psych/Mental Status: Normal Affect, Appropriate Vital Signs Temp Pulse Resp BP Pulse Ox 98.8 F 75 18 138/79 H 94 08/04/17 13:50 08/04/17 13:50 08/04/17 13:50 08/04/17 13:50 08/04/17 13:50 Oxygen Delivery Method Room Air Body Mass Index (BMI) 26.1 Finger Stick Blood Glucose 168 Assessment/Plan 77 year old male with below past medical history significant for recent stroke, left hemiparesis, hospitalized for encephalopathy, stroke ruled out, complicated by moderate cervical canal stenosis, possible progression of vascular dementia, admitted to TCU for rehabilitation, strengthening, prior to discharge home with spouse. Debility - PT/OT. Dysphagia - ST. Pain - Tylenol 1000MG Q8H PRN mild pain. Bowel - Miralax 17MG daily, Senna/colace 1 tablet BID, Dulcolax 10MG PO daily PRN. Pneumonia vaccination - Administer Prevnar 13 and/or Pneumovax 23 as necessary. DVT prophylaxis - Lovenox 40MG SC daily. Stroke with left hemiparesis - Aspirin 81MG daily. Vitamin D deficiency - D3 5000IU daily. Vitamin B12 deficiency - B12 3000MCG daily. Nutrition - Glucerna 120ML 4x/day, MVI daily. Hypertension - Lisinopril 20MG daily, Amlodipine 5MG daily. Skin irritation - Calmoseptine TID buttocks. Hyperlipidemia - Statins intolerable, Fish Oil 1200MG daily. Vitamin E deficiency - Vitamin E 400IU daily. Vascular dementia - Ritalin not paid for, Namenda helpful, but intolerable, Rx Galantamine ER 8MG QHS.
--- NOTE | 2017-08-04 14:57 | HP.PCM_ITS ---
Problem List (1) Vascular dementia Status: Chronic (2) Cervical spinal stenosis Status: Chronic (3) Left hemiparesis Status: Chronic (4) Tongue cancer Status: Chronic (5) Obstructive sleep apnea Status: Chronic (6) Hyperlipidemia Status: Chronic (7) Overactive bladder Status: Chronic (8) Mental status alteration Status: Acute (9) Generalized weakness Status: Acute (10) Stroke Status: Chronic (11) HTN (hypertension) Status: Chronic History of Present Illness Date of Admission: 08/04/17 Chief Complaint: Here for rehabilitation, strengthening, prior to discharge home with spouse. The patient is a 77 year old Male with below past medical history presented to [facility] Emergency Department 07/30/2017 with change in mental status, generalized weakness. Left sided weakness, headache. WBC 6, Cr 0.8, Glucose 170. 07/30/2017 CT brain chronic involutional changes of brain. 07/30/2017 Chest X-ray chronic interstitial changes, mild cardiomegaly. 07/30/2017 EKG normal sinus rhythm, normal EKG. 07/30/2017 Admit to Hospital. Multiple falls, several recent hospitalizations. Check labs for change in mental status. 07/30/2017 MRI brain, no acute infarct, chronic white matter ischemic changes, old lacunar infarcts bilaterally periventricular white matter and right ventral thalamus. 07/30/2017 MRA head right internal carotid artery 50% stenosis, ?motion artifact. 07/30/2017 MRA neck normal. 07/30/2017 Dr. Gloria recommended MRI cervical spine, MRI lumbar spine. 07/31/2017 MRI cervical spine C6/C7 moderate central canal stenosis. Moderate bilateral foraminal stenosis. 07/31/2017 MRI lumbar spine L4/L5 grade 1 anterolisthesis, L5/S1 moderate left foraminal stenosis. 08/03/2017 Dr. Gloria recommended spine surgery consult for cervical spinal stenosis. 08/02/2017 Echo Normal LV size. Moderate concentric LVH. LV systolic function normal. EF 60%. Bubble study negative. Mild aortic stenosis. Change in mental status possible progression of vascular dementia. Statins cause myalgias, difficulty ambulating. 08/04/2017 Admit to TCU for rehabilitation, strengthening, prior to discharge home with spouse. Past Medical History Past Medical History (Chronic Problems): Chronic Problems (Last Updated 06/12/17 @ 13:43 by Lobo Tereletsky, DO) Vascular dementia (Chronic) Cervical spinal stenosis (Chronic) Left hemiparesis (Chronic) Tongue cancer (Chronic) Obstructive sleep apnea (Chronic) Hyperlipidemia (Chronic) Overactive bladder (Chronic) Cerebrovascular disease (Chronic) Stroke (Chronic) HTN (hypertension) (Chronic) Allergies chocolate flavor Adverse Reaction (Unknown, Verified 07/30/17 05:32) Other Pork/Porcine Containing Products Adverse Reaction (Unknown, Verified 07/30/17 05 :32) Other atorvastatin [From Lipitor] Adverse Reaction (Verified 07/30/17 05:35) Other oxybutynin Adverse Reaction (Verified 07/30/17 05:35) Other Home Medications: Ambulatory Orders Medication Instructions Recorded Aspirin [Aspirin, Baby] 81 mg PO DAILY@0800 06/12/17 Cholecalciferol (Vitamin D3) 5,000 unit PO DAILY 06/12/17 [Vitamin D3] Multivitamins,Therapeutic 1 tablet PO DAILY 06/12/17 [Multivitamin] Cyanocobalamin (Vitamin B-12) 3,000 mcg PO DAILY 07/30/17 [Vitamin B-12] Multivit-Min/Folic Acid/Biotin 1 each PO DAILY 07/30/17 [Hair, Skin and Nails Caplet] [place]-3/Dha/Epa/Fish Oil [Fish Oil 1,200 mg PO DAILY 07/30/17 [place]-3 EC 1,200 mg] Vitamin E (Dl,Tocopheryl Acet) 400 units PO DAILY 07/30/17 [Vitamin E] Amlodipine [Norvasc] 5 mg PO DAILY 08/04/17 Docusate Sodium [Colace] 100 mg PO BID PRN PRN capsule 08/04/17 Heparin Injection 5,000 units SC Q8 08/04/17 Lisinopril [Zestril] 20 mg PO DAILY 08/04/17 Magnesium Hydroxide [Milk Of 30 ml PO DAILY PRN PRN udc 08/04/17 Magnesia] Surgical History: total hip arthroplasty - Right hip, hemiarthroplasty., - - Tongue resection. Psychiatric History: No pertinent psych hx Lives: Spouse/ Significant Other Smoking Status: Never smoker Tobacco Use: Non-smoker Alcohol: None Drugs: None - *Family History Maternal History Items: No pertinent history Paternal History Items: No pertinent history Review of Systems Constitutional: Denies: Chills, Fever, Weight Change HEENT: Denies: Head Aches, Sinus Congestion, Sinus Drainage Cardiovascular: Denies: Chest Pain, Palpitations Respiratory: Denies: Cough, Shortness of breath at rest, Sputum production Gastrointestinal: Denies: Abdominal Pain, Nausea, Vomiting Genitourinary: Denies: Dysuria Musculoskeletal: Denies: Joint Pain, Joint Tenderness Skin: Denies: Rash, Wounds Neurological: Denies: Numbness, Tingling, Focal weakness Psychiatric: Denies: Anxiety, Depression, Homicidal Ideations, Suicidal Ideations Hematologic/ Lymphatic: Denies: Easy Bruising, Easy Bleeding VTE Information - Inpt Only VTE Present on Admission: No VTE Mechan Device Prophylaxis: Knee High KATIE Hose VTE Pharm Prophylaxis ordered?: Yes - Physical Exam General: Alert, Oriented x3, Cooperative HEENT: Atraumatic, PERRLA, EOMI, Normocephalic Neck: Supple, No JVD, Negative Carotid Bruits Lungs: Clear to auscultation, Normal air movement Cardiovascular: Regular rate, No murmurs Abdomen: Bowel Sounds Present, Soft, Non Tender Extremities: No edema, Capillary Refill Less than 3 Seconds Skin: No rashes, No breakdown Musculoskeletal: No Tenderness to Palpation of Joints or Extremities Neurological: Cranial nerves II-XII grossly intact Psych/Mental Status: Normal Affect, Appropriate Vital Signs Temp Pulse Resp BP Pulse Ox 98.8 F 75 18 138/79 H 94 08/04/17 13:50 08/04/17 13:50 08/04/17 13:50 08/04/17 13:50 08/04/17 13:50 Oxygen Delivery Method Room Air Body Mass Index (BMI) 26.1 Finger Stick Blood Glucose 168 Assessment/Plan 77 year old male with below past medical history significant for recent stroke, left hemiparesis, hospitalized for encephalopathy, stroke ruled out, complicated by moderate cervical canal stenosis, possible progression of vascular dementia, admitted to TCU for rehabilitation, strengthening, prior to discharge home with spouse. * Debility - PT/OT. * Dysphagia - ST. * Pain - Tylenol 1000MG Q8H PRN mild pain. * Bowel - Miralax 17MG daily, Senna/colace 1 tablet BID, Dulcolax 10MG PO daily PRN. * Pneumonia vaccination - Administer Prevnar 13 and/or Pneumovax 23 as necessary. * DVT prophylaxis - Lovenox 40MG SC daily. * Stroke with left hemiparesis - Aspirin 81MG daily. * Vitamin D deficiency - D3 5000IU daily. * Vitamin B12 deficiency - B12 3000MCG daily. * Nutrition - Glucerna 120ML 4x/day, MVI daily. * Hypertension - Lisinopril 20MG daily, Amlodipine 5MG daily. * Skin irritation - Calmoseptine TID buttocks. * Hyperlipidemia - Statins intolerable, Fish Oil 1200MG daily. * Vitamin E deficiency - Vitamin E 400IU daily. * Vascular dementia - Ritalin not paid for, Namenda helpful, but intolerable, Rx Galantamine ER 8MG QHS.
[2017-08-04 15:06] VITALS: BMI 24.6
[2017-08-04 15:12] VITALS: BMI 24.7
[2017-08-04] MEDS: Galantamine Hydrobromide 4 MG Tablet PO (17:46)
[2017-08-04] MEDS: Glucerna Shake 120 ML LIQUID PO (17:46)
[2017-08-04] MEDS: Senna/Docusate Sodium 1 Tablet PO (17:47)
[2017-08-04] MEDS: Polyethylene Glycol 3350 17 GM PACKET PO (17:47)
[2017-08-04] MEDS: Menthol/Lanolin/Calamine/Znox 113 GM Tube 1 APPLIC TOPICAL (21:50)
[2017-08-05] MEDS: amLODIPine 5 MG Tablet PO (05:31)
[2017-08-05] MEDS: Vitamin E 400 UNITS Capsule PO (05:31)
[2017-08-05] MEDS: Glucerna Shake 120 ML LIQUID PO ×4 (05:31→20:33)
[2017-08-05] MEDS: Lisinopril 20 MG Tablet PO (05:31)
[2017-08-05] MEDS: Polyethylene Glycol 3350 17 GM PACKET PO (05:31)
[2017-08-05] MEDS: Senna/Docusate Sodium 1 Tablet PO ×2 (05:32→17:43)
[2017-08-05] MEDS: Enoxaparin 40 MG/0.4 ML Syringe SC (05:38)
[2017-08-05] MEDS: Menthol/Lanolin/Calamine/Znox 113 GM Tube 1 APPLIC TOPICAL ×3 (05:40→20:33)
[2017-08-05 07:00] LABS: Absolute Lymphocyte Count 1.64 X10^3/ul (0.83-4.51); Absolute Neutrophil Count 4.1 X10^3/uL (2.0-7.7); Basophil# 0.02 X10^3/uL; Basophil% 0.3 % (0-1); Eosinophil# 0.11 X10^3/uL; Eosinophils% 1.8 % (0-5); Hematocrit 43.8 % (40-54); Hemoglobin 14.3 g/dl (13.0-16.5); Lymphocyte # 1.64 X10^3/ul (4.0); Lymphocyte % 26.1 % (19-41); Mean Corp Hgb Conc 32.6 g/gl (32-36); Mean Corpuscular Hgb 30.2 pg (27.0-32.0); Mean Corpuscular Volume 92.6 fL (80-94); Mean Platelet Vol. 10.1 fl (6.2-12.0); Monocyte# 0.43 X10^3/uL; Monocyte% 6.8 % (0-10); Neutrophil # 4.07 X10^3/uL (2.7-7.7); Neutrophil % 64.8 % (47-70); POSITIVE COUNT NO; POSITIVE DIFFERENTIAL NO; POSITIVE MORPHOLOGY NO; Platelet Count 147 K/mm3 (150-450); RBC Distribution Width CV 13.2 % (11.6-14.6); RBC Distribution Width SD 44.8 fl (35.1-43.9); Red Blood Count 4.73 M/mm3 (4.6-6.2); White Blood Count 6.3 K/mm3 (4.4-11.0)
[2017-08-05 07:20] LABS: Anion Gap 8 (5-15); BUN 21 mg/dL (7-18); BUN/Creat Ratio 25.7 RATIO (10-20); Calcium,Total 9.2 mg/dL (8.5-10.1); Chloride 101 mmol/L (98-107); Creatinine, Serum 0.82 mg/dL (0.70-1.30); EST Glomerular Filtration Rate 97 mL/min (>60); Est Glom Filt Rate - Afr Amer 118 mL/min (>60); Estimated Creatinine Clearance 94.09 ml/min; Glucose 141 mg/dL (74-106); Potassium 4.1 mmol/L (3.5-5.1); Sodium Level 136 mmol/L (136-145)
[2017-08-05] MEDS: Aspirin 81 MG TAB.CHEW PO (08:14)
[2017-08-05] MEDS: Galantamine Hydrobromide 4 MG Tablet PO ×2 (08:14→17:42)
[2017-08-05] MEDS: Multivitamins,Therapeutic Tablet 1 TABLET PO (08:14)
[2017-08-05] MEDS: Tuberculin,Purif.prot.deriv. 50 TU/ML Vial 5 ML ID (11:22)
--- NOTE | 2017-08-05 13:46 | CDU_ITS ---
Reason For Study: TIA/CVA Rt. Velocities/BP Lt. Velocities/BP Prox CCA 8.9/0.0 cm/sec. Prox CCA 69.8/11.7 cm/sec. Mid CCA 63.3/8.79 cm/sec. Mid CCA 64.5/12.9 cm/sec. Dist CCA 7.9/10.6 cm/sec. Dist CCA 75.6/12.9 cm/sec. Prox ICA 57.4/9.82 cm/sec. Prox ICA 66.8/18.8 cm/sec. Mid ICA 58.5/12.2 cm/sec. Mid ICA 90.3/20.5 cm/sec. Dist ICA 69.9/13.8 cm/sec. Dist ICA 93.8/20.5 cm/sec. Rt. ICA/CCA = 69.9/63.3=1.1. Lt. ICA/CCA = 93.8/64.5=1.5. Prox ECA 16.0/0.0 cm/sec. Prox ECA 96.7/14.7 cm/sec. Rt. Vert. 61.3/9.04 cm/sec. Lt. Vert. 72.7/9.97 cm/sec. Right Extracranial There is intimal thickening but no significant atherosclerotic plaque noted in the right common carotid artery. There is heterogeneous, smooth atherosclerotic plaque noted in the right internal carotid artery. There is heterogeneous, smooth atherosclerotic plaque noted in the right external carotid artery. Antegrade flow is noted in the right vertebral artery. There is heterogeneous, irregular atherosclerotic plaque noted in the right bulb. Left Extracranial There is heterogeneous, irregular atherosclerotic plaque noted in the left common carotid artery. There is heterogeneous, irregular atherosclerotic plaque noted in the left internal carotid artery. There is heterogeneous, irregular atherosclerotic plaque noted in the left external carotid artery. Antegrade flow is noted in the left vertebral artery. There is heterogeneous, irregular atherosclerotic plaque noted in the left bulb. Procedure Carotid Duplex [id number]. The exam was diagnostic. Exam performed portable in patient room. Interpretation Summary There is < 50% stenosis in the bilateral extracarnial ICA based on the velocity criteria. There is heterogenous atherosclerotic plaque noted in bilateral ICA, common carotid artery and external carotid arterty. Probable error in recording velocities of the right CCA (proximal and dital). Recommend repeat study. There is antegrade flow in bilateral vertebral arteries. Ordering Physician: Garett Dunlap Referring Physician: Garett Dunlap Chi Performed By: Tracee Ornelas, LILY, RVT
[2017-08-05 16:00] VITALS: BP 139/90; PULSE 78; RESP 16; TEMP 36.4; O2SAT 97
[2017-08-05 20:36] VITALS: PULSE 70; O2SAT 98
[2017-08-06] MEDS: Enoxaparin 40 MG/0.4 ML Syringe SC (05:29)
[2017-08-06] MEDS: Menthol/Lanolin/Calamine/Znox 113 GM Tube 1 APPLIC TOPICAL ×3 (05:29→19:40)
[2017-08-06] MEDS: Glucerna Shake 120 ML LIQUID PO ×4 (05:29→19:40)
[2017-08-06] MEDS: Lisinopril 20 MG Tablet PO (05:30)
[2017-08-06] MEDS: amLODIPine 5 MG Tablet PO (05:30)
[2017-08-06] MEDS: Vitamin E 400 UNITS Capsule PO (05:30)
[2017-08-06] MEDS: Galantamine Hydrobromide 4 MG Tablet PO ×2 (09:08→17:15)
[2017-08-06] MEDS: Aspirin 81 MG TAB.CHEW PO (09:08)
[2017-08-06] MEDS: Multivitamins,Therapeutic Tablet 1 TABLET PO (09:08)
[2017-08-06 16:00] VITALS: BP 126/67; PULSE 69; RESP 16; TEMP 36.5; O2SAT 97
[2017-08-06] MEDS: Senna/Docusate Sodium 1 Tablet PO (17:15)
--- NOTE | 2017-08-06 17:34 | PCM.PN.RX ---
<Marco Quiles - Last Filed: 08/06/17 18:01> Progress Note - Pharmacy Subjective: [] TCU Admission Objective: Allergies chocolate flavor Adverse Reaction (Unknown, Verified 07/30/17 05:32) Other Pork/Porcine Containing Products Adverse Reaction (Unknown, Verified 07/30/17 05:32) Other atorvastatin [From Lipitor] Adverse Reaction (Verified 07/30/17 05:35) Other oxybutynin Adverse Reaction (Verified 07/30/17 05:35) Other Home Medications Medication Instructions Recorded Aspirin [Aspirin, Baby] 81 mg PO DAILY@0800 06/12/17 Cholecalciferol (Vitamin D3) 5,000 unit PO DAILY 06/12/17 [Vitamin D3] Multivitamins,Therapeutic 1 tablet PO DAILY 06/12/17 [Multivitamin] Cyanocobalamin (Vitamin B-12) 3,000 mcg PO DAILY 07/30/17 [Vitamin B-12] Multivit-Min/Folic Acid/Biotin 1 each PO DAILY 07/30/17 [Hair, Skin and Nails Caplet] [place]-3/Dha/Epa/Fish Oil [Fish Oil 1,200 mg PO DAILY 07/30/17 [place]-3 EC 1,200 mg] Vitamin E (Dl,Tocopheryl Acet) 400 units PO DAILY 07/30/17 [Vitamin E] Amlodipine [Norvasc] 5 mg PO DAILY 08/04/17 Docusate Sodium [Colace] 100 mg PO BID PRN PRN capsule 08/04/17 Heparin Injection 5,000 units SC Q8 08/04/17 Lisinopril [Zestril] 20 mg PO DAILY 08/04/17 Magnesium Hydroxide [Milk Of 30 ml PO DAILY PRN PRN udc 08/04/17 Magnesia] Current Medications Generic Name Dose Route Start Last Admin Trade Name Freq PRN Reason Stop Dose Admin Acetaminophen 1,000 mg 08/04/17 15:09 Tylenol PO Q8H PRN PRN MILD PAIN (1-3/10) Amlodipine Besylate 5 mg 08/05/17 06:00 08/06/17 05:30 Norvasc PO 5 mg DAILY [facility] Administration Aspirin 81 mg 08/05/17 08:00 08/06/17 09:08 Aspirin, Baby PO 81 mg DAILY@0800 [facility] Administration Bisacodyl 10 mg 08/04/17 15:10 Dulcolax PO DAILY PRN Constipation Calamine/Phenol 1 applic 08/04/17 22:00 08/06/17 13:36 Calmoseptine Ointment TOPICAL 1 applicatio TID [facility] Administration Protocol Enoxaparin Sodium 40 mg 08/05/17 06:00 08/06/17 05:29 Lovenox SC 40 mg DAILY@0600 M[facility]OSLA[facility] Administration Galantamine Hydrobromide 4 mg 08/04/17 17:00 08/06/17 17:15 Razadyne PO 4 mg BIDCM [facility] Administration Lisinopril 20 mg 08/05/17 06:00 08/06/17 05:30 Zestril PO 20 mg DAILY [facility] Administration Multivitamins 1 tablet 08/05/17 08:00 08/06/17 09:08 Multivitamin PO 1 tablet DAILYCM [facility] Administration Nutritional Formula (Lactose Free) 120 ml 08/05/17 12:13 08/06/17 17:14 Glucerna Shake PO 120 ml 4X/DAY [facility] Administration Polyethylene Glycol 17 gm 08/04/17 14:22 08/06/17 05:30 Miralax PO Not Given DAILY [facility] Senna/Docusate Sodium 1 tablet 08/04/17 18:00 08/06/17 17:15 Senokot-S, Leslye-Colace PO 1 tablet BID [facility] Administration Tuberculin PPD 5 tu 08/12/17 10:00 Tubersol, Aplisol, Ppd ID 08/12/17 10:01 X1 ONE Vitamin E 400 units 08/05/17 06:00 08/06/17 05:30 Vitamin E PO 400 units DAILY [facility] Administration Problem List (Last Updated 06/12/17 @ 13:43 by Lobo Cheng DO) Vascular dementia (Chronic) Cervical spinal stenosis (Chronic) Left hemiparesis (Chronic) Tongue cancer (Chronic) Obstructive sleep apnea (Chronic) Hyperlipidemia (Chronic) Overactive bladder (Chronic) Vital Signs Temp Pulse Resp BP Pulse Ox 97.7 F L 69 16 126/67 H 97 08/06/17 16:00 08/06/17 16:00 08/06/17 16:00 08/06/17 16:00 08/06/17 16:00 Oxygen Delivery Method Room Air Weight: 91.9 kg Body Mass Index (BMI) 24.6 Finger Stick Blood Glucose 168 Sodium 136 mmol/L (136-145) 08/05/17 06:31 Potassium 4.1 mmol/L (3.5-5.1) 08/05/17 06:31 Chloride 101 mmol/L (98-107) 08/05/17 06:31 Carbon Dioxide 27.0 mmol/L (21.0-32.0) 08/05/17 06:31 Anion Gap 8 (5-15) 08/05/17 06:31 BUN 21 mg/dL (7-18) H 08/05/17 06:31 Creatinine 0.82 mg/dL (0.70-1.30) 08/05/17 06:31 Est GFR (MDRD) Af Amer 118 mL/min (>60) 08/05/17 06:31 Est GFR (MDRD) Non-Af 97 mL/min (>60) 08/05/17 06:31 BUN/Creatinine Ratio 25.7 RATIO (10-20) H 08/05/17 06:31 Glucose 141 mg/dL (74-106) H 08/05/17 06:31 Assessment/Plan: 1) Pain: Acetaminophen 1000mg po q8h prn for mild pain. Please continue to monitor prn usage and for signs/symptoms of increased/decreased pain. 2) DVT Prophylaxis: Enoxaparin 40mg subq daily. Pt's SrCr is 0.82, CrCl is 94, Plt are 147. Please continue to monitor labs. Please continue to monitor for signs/symptoms of bleeding/clot 3) Hypertension: Lisinopril 20mg po daily, Amlodipine 5mg po daily. Pt's K+ is 4.1, BUN is 21, SrCr is 0.82, CrCl is 94. Pt's average blood pressure is 138/79. Please continue to monitor 4) Vascular Dementia: Galantamine 4mg po bid. Galantamine is on the [facility]ERS list of medications. It can increase the risk for orthostatic hypotension and bradycardia. Please continue to monitor the pt. 5) Stroke: ASA 81mg po daily. Please continue to monitor the pt for bleeding/bruising 6) Vitamin Deficiency: MVI po daily, Vitamin E 400iu po daily. Psychotropic Medications: none Unnecessary Medications: none Bowel Regimen: Bisacodyl 10mg po daily prn constipation, Miralax 17gm po daily, Senna/Docusate 1 tablet po daily. Please continue to monitor prn usage and for signs/symptoms of constipation/diarrhea Date of Note:: 08/06/17 - Provider Comments Provider responsibility: Provider responsible to enter orders to implement recommendations <Garett Dunlap Chi - Last Filed: 08/07/17 08:01> Progress Note - Pharmacy Subjective: [] Objective: Allergies chocolate flavor Adverse Reaction (Unknown, Verified 07/30/17 05:32) Other Pork/Porcine Containing Products Adverse Reaction (Unknown, Verified 07/30/17 05:32) Other atorvastatin [From Lipitor] Adverse Reaction (Verified 07/30/17 05:35) Other oxybutynin Adverse Reaction (Verified 07/30/17 05:35) Other Home Medications Medication Instructions Recorded Aspirin [Aspirin, Baby] 81 mg PO DAILY@0800 06/12/17 Cholecalciferol (Vitamin D3) 5,000 unit PO DAILY 06/12/17 [Vitamin D3] Multivitamins,Therapeutic 1 tablet PO DAILY 06/12/17 [Multivitamin] Cyanocobalamin (Vitamin B-12) 3,000 mcg PO DAILY 07/30/17 [Vitamin B-12] Multivit-Min/Folic Acid/Biotin 1 each PO DAILY 07/30/17 [Hair, Skin and Nails Caplet] [place]-3/Dha/Epa/Fish Oil [Fish Oil 1,200 mg PO DAILY 07/30/17 [place]-3 EC 1,200 mg] Vitamin E (Dl,Tocopheryl Acet) 400 units PO DAILY 07/30/17 [Vitamin E] Amlodipine [Norvasc] 5 mg PO DAILY 08/04/17 Docusate Sodium [Colace] 100 mg PO BID PRN PRN capsule 08/04/17 Heparin Injection 5,000 units SC Q8 08/04/17 Lisinopril [Zestril] 20 mg PO DAILY 08/04/17 Magnesium Hydroxide [Milk Of 30 ml PO DAILY PRN PRN udc 08/04/17 Magnesia] Current Medications Generic Name Dose Route Start Last Admin Trade Name Freq PRN Reason Stop Dose Admin Acetaminophen 1,000 mg 08/04/17 15:09 Tylenol PO Q8H PRN PRN MILD PAIN (1-3/10) Amlodipine Besylate 5 mg 08/05/17 06:00 08/07/17 05:07 Norvasc PO 5 mg DAILY [facility] Administration Aspirin 81 mg 08/05/17 08:00 08/06/17 09:08 Aspirin, Baby PO 81 mg DAILY@0800 [facility] Administration Bisacodyl 10 mg 08/04/17 15:10 Dulcolax PO DAILY PRN Constipation Calamine/Phenol 1 applic 08/04/17 22:00 08/07/17 05:06 Calmoseptine Ointment TOPICAL 1 applicatio TID [facility] Administration Protocol Enoxaparin Sodium 40 mg 08/05/17 06:00 08/07/17 05:06 Lovenox SC 40 mg DAILY@0600 [facility] Administration Galantamine Hydrobromide 4 mg 08/04/17 17:00 08/06/17 17:15 Razadyne PO 4 mg BIDCM [facility] Administration Lisinopril 20 mg 08/05/17 06:00 08/07/17 05:07 Zestril PO 20 mg DAILY [facility] Administration Multivitamins 1 tablet 08/05/17 08:00 08/06/17 09:08 [facility] Nutritional Formula (Lactose Free) 120 ml 08/05/17 12:13 08/07/17 05:06 Glucerna Shake PO 120 ml 4X/DAY [facility] Administration Polyethylene Glycol 17 gm 08/04/17 14:22 08/07/17 05:06 Miralax PO 17 gm DAILY [facility] Administration Senna/Docusate Sodium 1 tablet 08/04/17 18:00 08/07/17 05:07 Senokot-S, Leslye-Colace PO 1 tablet BID [facility] Administration Tuberculin PPD 5 tu 08/12/17 10:00 Tubersol, Aplisol, Ppd ID 08/12/17 10:01 X1 ONE Vitamin E 400 units 08/05/17 06:00 08/07/17 05:07 Vitamin E PO 400 units DAILY [facility] Administration Problem List (Last Updated 06/12/17 @ 13:43 by Lobo Cheng DO) Vascular dementia (Chronic) Cervical spinal stenosis (Chronic) Left hemiparesis (Chronic) Tongue cancer (Chronic) Obstructive sleep apnea (Chronic) Hyperlipidemia (Chronic) Overactive bladder (Chronic) Vital Signs Temp Pulse Resp BP Pulse Ox 97.7 F L 79 16 126/67 H 98 08/06/17 16:00 08/06/17 19:43 08/06/17 16:00 08/06/17 16:00 08/06/17 19:43 Oxygen Delivery Method Room Air Weight: 91.9 kg Body Mass Index (BMI) 24.6 Finger Stick Blood Glucose 168 Sodium 136 mmol/L (136-145) 08/05/17 06:31 Potassium 4.1 mmol/L (3.5-5.1) 08/05/17 06:31 Chloride 101 mmol/L (98-107) 08/05/17 06:31 Carbon Dioxide 27.0 mmol/L (21.0-32.0) 08/05/17 06:31 Anion Gap 8 (5-15) 08/05/17 06:31 BUN 21 mg/dL (7-18) H 08/05/17 06:31 Creatinine 0.82 mg/dL (0.70-1.30) 08/05/17 06:31 Est GFR (MDRD) Af Amer 118 mL/min (>60) 08/05/17 06:31 Est GFR (MDRD) Non-Af 97 mL/min (>60) 08/05/17 06:31 BUN/Creatinine Ratio 25.7 RATIO (10-20) H 08/05/17 06:31 Glucose 141 mg/dL (74-106) H 08/05/17 06:31 Assessment/Plan: Psychotropic Medications: Unnecessary Medications: Bowel Regimen: - Provider Comments Provider responsibility: Provider responsible to enter orders to implement recommendations Provider Comments to Recommendations by Pharmacy: Agree
--- NOTE | 2017-08-06 17:38 | PHA.CONS_ITS ---
<Marco Quiles - Last Filed: 08/06/17 18:01> Progress Note - Pharmacy Subjective: [] TCU Admission Objective: Allergies chocolate flavor Adverse Reaction (Unknown, Verified 07/30/17 05:32) Other Pork/Porcine Containing Products Adverse Reaction (Unknown, Verified 07/30/17 05 :32) Other atorvastatin [From Lipitor] Adverse Reaction (Verified 07/30/17 05:35) Other oxybutynin Adverse Reaction (Verified 07/30/17 05:35) Other Home Medications Medication Instructions Recorded Aspirin [Aspirin, Baby] 81 mg PO DAILY@0800 06/12/17 Cholecalciferol (Vitamin D3) 5,000 unit PO DAILY 06/12/17 [Vitamin D3] Multivitamins,Therapeutic 1 tablet PO DAILY 06/12/17 [Multivitamin] Cyanocobalamin (Vitamin B-12) 3,000 mcg PO DAILY 07/30/17 [Vitamin B-12] Multivit-Min/Folic Acid/Biotin 1 each PO DAILY 07/30/17 [Hair, Skin and Nails Caplet] [place]-3/Dha/Epa/Fish Oil [Fish Oil 1,200 mg PO DAILY 07/30/17 [place]-3 EC 1,200 mg] Vitamin E (Dl,Tocopheryl Acet) 400 units PO DAILY 07/30/17 [Vitamin E] Amlodipine [Norvasc] 5 mg PO DAILY 08/04/17 Docusate Sodium [Colace] 100 mg PO BID PRN PRN capsule 08/04/17 Heparin Injection 5,000 units SC Q8 08/04/17 Lisinopril [Zestril] 20 mg PO DAILY 08/04/17 Magnesium Hydroxide [Milk Of 30 ml PO DAILY PRN PRN udc 08/04/17 Magnesia] Current Medications Generic Name Dose Route Start Last Admin Trade Name Freq PRN Reason Stop Dose Admin Acetaminophen 1,000 mg 08/04/17 15:09 Tylenol PO Q8H PRN PRN MILD PAIN (1-3/10) Amlodipine Besylate 5 mg 08/05/17 06:00 08/06/17 05:30 Norvasc PO 5 mg DAILY [facility] Administration Aspirin 81 mg 08/05/17 08:00 08/06/17 09:08 Aspirin, Baby PO 81 mg DAILY@0800 [facility] Administration Bisacodyl 10 mg 08/04/17 15:10 Dulcolax PO DAILY PRN Constipation Calamine/Phenol 1 applic 08/04/17 22:00 08/06/17 13:36 Calmoseptine Ointment TOPICAL 1 applicatio TID [facility] Administration Protocol Enoxaparin Sodium 40 mg 08/05/17 06:00 08/06/17 05:29 Lovenox SC 40 mg DAILY@0600 [facility] Administration Galantamine Hydrobromide 4 mg 08/04/17 17:00 08/06/17 17:15 Razadyne PO 4 mg BIDCM [facility] Administration Lisinopril 20 mg 08/05/17 06:00 08/06/17 05:30 Zestril PO 20 mg DAILY [facility] Administration Multivitamins 1 tablet 08/05/17 08:00 08/06/17 09:08 Multivitamin PO 1 tablet DAILYCM [facility] Administration Nutritional Formula (Lactose Free) 120 ml 08/05/17 12:13 08/06/17 17:14 Glucerna Shake PO 120 ml 4X/DAY [facility] Administration Polyethylene Glycol 17 gm 08/04/17 14:22 08/06/17 05:30 Miralax PO Not Given DAILY [facility] Senna/Docusate Sodium 1 tablet 08/04/17 18:00 08/06/17 17:15 Senokot-S, Leslye-Colace PO 1 tablet BID [facility] Administration Tuberculin PPD 5 tu 08/12/17 10:00 Tubersol, Aplisol, Ppd ID 08/12/17 10:01 X1 ONE Vitamin E 400 units 08/05/17 06:00 08/06/17 05:30 Vitamin E PO 400 units DAILY [facility] Administration Problem List (Last Updated 06/12/17 @ 13:43 by Lobo Cheng DO) Vascular dementia (Chronic) Cervical spinal stenosis (Chronic) Left hemiparesis (Chronic) Tongue cancer (Chronic) Obstructive sleep apnea (Chronic) Hyperlipidemia (Chronic) Overactive bladder (Chronic) Vital Signs Temp Pulse Resp BP Pulse Ox 97.7 F L 69 16 126/67 H 97 08/06/17 16:00 08/06/17 16:00 08/06/17 16:00 08/06/17 16:00 08/06/17 16:00 Oxygen Delivery Method Room Air Weight: 91.9 kg Body Mass Index (BMI) 24.6 Finger Stick Blood Glucose 168 Sodium 136 mmol/L (136-145) 08/05/17 06:31 Potassium 4.1 mmol/L (3.5-5.1) 08/05/17 06:31 Chloride 101 mmol/L (98-107) 08/05/17 06:31 Carbon Dioxide 27.0 mmol/L (21.0-32.0) 08/05/17 06:31 Anion Gap 8 (5-15) 08/05/17 06:31 BUN 21 mg/dL (7-18) H 08/05/17 06:31 Creatinine 0.82 mg/dL (0.70-1.30) 08/05/17 06:31 Est GFR (MDRD) Af Amer 118 mL/min (>60) 08/05/17 06:31 Est GFR (MDRD) Non-Af 97 mL/min (>60) 08/05/17 06:31 BUN/Creatinine Ratio 25.7 RATIO (10-20) H 08/05/17 06:31 Glucose 141 mg/dL (74-106) H 08/05/17 06:31 Assessment/Plan: 1) Pain: Acetaminophen 1000mg po q8h prn for mild pain. Please continue to monitor prn usage and for signs/symptoms of increased/decreased pain. 2) DVT Prophylaxis: Enoxaparin 40mg subq daily. Pt's SrCr is 0.82, CrCl is 94, Plt are 147. Please continue to monitor labs. Please continue to monitor for signs/symptoms of bleeding/clot 3) Hypertension: Lisinopril 20mg po daily, Amlodipine 5mg po daily. Pt's K+ is 4.1, BUN is 21, SrCr is 0.82, CrCl is 94. Pt's average blood pressure is 138/ 79. Please continue to monitor 4) Vascular Dementia: Galantamine 4mg po bid. Galantamine is on the [facility] list of medications. It can increase the risk for orthostatic hypotension and bradycardia. Please continue to monitor the pt. 5) Stroke: ASA 81mg po daily. Please continue to monitor the pt for bleeding/ bruising 6) Vitamin Deficiency: MVI po daily, Vitamin E 400iu po daily. Psychotropic Medications: none Unnecessary Medications: none Bowel Regimen: Bisacodyl 10mg po daily prn constipation, Miralax 17gm po daily , Senna/Docusate 1 tablet po daily. Please continue to monitor prn usage and for signs/symptoms of constipation/diarrhea Date of Note:: 08/06/17 - Provider Comments Provider responsibility: Provider responsible to enter orders to implement recommendations <Garett Dunlap Chi - Last Filed: 08/07/17 08:01> Progress Note - Pharmacy Subjective: [] Objective: Allergies chocolate flavor Adverse Reaction (Unknown, Verified 07/30/17 05:32) Other Pork/Porcine Containing Products Adverse Reaction (Unknown, Verified 07/30/17 05 :32) Other atorvastatin [From Lipitor] Adverse Reaction (Verified 07/30/17 05:35) Other oxybutynin Adverse Reaction (Verified 07/30/17 05:35) Other Home Medications Medication Instructions Recorded Aspirin [Aspirin, Baby] 81 mg PO DAILY@0800 06/12/17 Cholecalciferol (Vitamin D3) 5,000 unit PO DAILY 06/12/17 [Vitamin D3] Multivitamins,Therapeutic 1 tablet PO DAILY 06/12/17 [Multivitamin] Cyanocobalamin (Vitamin B-12) 3,000 mcg PO DAILY 07/30/17 [Vitamin B-12] Multivit-Min/Folic Acid/Biotin 1 each PO DAILY 07/30/17 [Hair, Skin and Nails Caplet] [place]-3/Dha/Epa/Fish Oil [Fish Oil 1,200 mg PO DAILY 07/30/17 [place]-3 EC 1,200 mg] Vitamin E (Dl,Tocopheryl Acet) 400 units PO DAILY 07/30/17 [Vitamin E] Amlodipine [Norvasc] 5 mg PO DAILY 08/04/17 Docusate Sodium [Colace] 100 mg PO BID PRN PRN capsule 08/04/17 Heparin Injection 5,000 units SC Q8 08/04/17 Lisinopril [Zestril] 20 mg PO DAILY 08/04/17 Magnesium Hydroxide [Milk Of 30 ml PO DAILY PRN PRN udc 08/04/17 Magnesia] Current Medications Generic Name Dose Route Start Last Admin Trade Name Freq PRN Reason Stop Dose Admin Acetaminophen 1,000 mg 08/04/17 15:09 Tylenol PO Q8H PRN PRN MILD PAIN (1-3/10) Amlodipine Besylate 5 mg 08/05/17 06:00 08/07/17 05:07 Norvasc PO 5 mg DAILY [facility] Administration Aspirin 81 mg 08/05/17 08:00 08/06/17 09:08 Aspirin, Baby PO 81 mg DAILY@0800 [facility] Administration Bisacodyl 10 mg 08/04/17 15:10 Dulcolax PO DAILY PRN Constipation Calamine/Phenol 1 applic 08/04/17 22:00 08/07/17 05:06 Calmoseptine Ointment TOPICAL 1 applicatio TID [facility] Administration Protocol Enoxaparin Sodium 40 mg 08/05/17 06:00 08/07/17 05:06 Lovenox SC 40 mg DAILY@0600 [facility] Administration Galantamine Hydrobromide 4 mg 08/04/17 17:00 08/06/17 17:15 Razadyne PO 4 mg BIDCM [facility] Administration Lisinopril 20 mg 08/05/17 06:00 08/07/17 05:07 Zestril PO 20 mg DAILY [facility] Administration Multivitamins 1 tablet 08/05/17 08:00 08/06/17 09:08 [facility] Administration Nutritional Formula (Lactose Free) 120 ml 08/05/17 12:13 08/07/17 05:06 Glucerna Shake PO 120 ml 4X/DAY [facility] Administration Polyethylene Glycol 17 gm 08/04/17 14:22 08/07/17 05:06 Miralax PO 17 gm DAILY [facility] Administration Senna/Docusate Sodium 1 tablet 08/04/17 18:00 08/07/17 05:07 Senokot-S, Leslye-Colace PO 1 tablet BID [facility] Administration Tuberculin PPD 5 tu 08/12/17 10:00 Tubersol, Aplisol, Ppd ID 08/12/17 10:01 X1 ONE Vitamin E 400 units 08/05/17 06:00 08/07/17 05:07 Vitamin E PO 400 units DAILY [facility] Administration Problem List (Last Updated 06/12/17 @ 13:43 by Lobo Cheng DO) Vascular dementia (Chronic) Cervical spinal stenosis (Chronic) Left hemiparesis (Chronic) Tongue cancer (Chronic) Obstructive sleep apnea (Chronic) Hyperlipidemia (Chronic) Overactive bladder (Chronic) Vital Signs Temp Pulse Resp BP Pulse Ox 97.7 F L 79 16 126/67 H 98 08/06/17 16:00 08/06/17 19:43 08/06/17 16:00 08/06/17 16:00 08/06/17 19:43 Oxygen Delivery Method Room Air Weight: 91.9 kg Body Mass Index (BMI) 24.6 Finger Stick Blood Glucose 168 Sodium 136 mmol/L (136-145) 08/05/17 06:31 Potassium 4.1 mmol/L (3.5-5.1) 08/05/17 06:31 Chloride 101 mmol/L (98-107) 08/05/17 06:31 Carbon Dioxide 27.0 mmol/L (21.0-32.0) 08/05/17 06:31 Anion Gap 8 (5-15) 08/05/17 06:31 BUN 21 mg/dL (7-18) H 08/05/17 06:31 Creatinine 0.82 mg/dL (0.70-1.30) 08/05/17 06:31 Est GFR (MDRD) Af Amer 118 mL/min (>60) 08/05/17 06:31 Est GFR (MDRD) Non-Af 97 mL/min (>60) 08/05/17 06:31 BUN/Creatinine Ratio 25.7 RATIO (10-20) H 08/05/17 06:31 Glucose 141 mg/dL (74-106) H 08/05/17 06:31 Assessment/Plan: Psychotropic Medications: Unnecessary Medications: Bowel Regimen: - Provider Comments Provider responsibility: Provider responsible to enter orders to implement recommendations Provider Comments to Recommendations by Pharmacy: Agree
[2017-08-06 19:43] VITALS: PULSE 79; O2SAT 98
[2017-08-07] MEDS: Glucerna Shake 120 ML LIQUID PO ×3 (05:06→17:56)
[2017-08-07] MEDS: Polyethylene Glycol 3350 17 GM PACKET PO (05:06)
[2017-08-07] MEDS: Enoxaparin 40 MG/0.4 ML Syringe SC (05:06)
[2017-08-07] MEDS: Menthol/Lanolin/Calamine/Znox 113 GM Tube 1 APPLIC TOPICAL ×3 (05:06→21:47)
[2017-08-07] MEDS: Vitamin E 400 UNITS Capsule PO (05:07)
[2017-08-07] MEDS: Lisinopril 20 MG Tablet PO (05:07)
[2017-08-07] MEDS: amLODIPine 5 MG Tablet PO (05:07)
[2017-08-07] MEDS: Senna/Docusate Sodium 1 Tablet PO ×2 (05:07→17:57)
[2017-08-07] MEDS: Aspirin 81 MG TAB.CHEW PO (09:16)
[2017-08-07] MEDS: Galantamine Hydrobromide 4 MG Tablet PO ×2 (09:16→17:56)
[2017-08-07] MEDS: Multivitamins,Therapeutic Tablet 1 TABLET PO (09:16)
[2017-08-07 16:00] VITALS: BP 124/74; PULSE 71; RESP 18; TEMP 36.7; O2SAT 95
--- NOTE | 2017-08-07 17:53 | NURSING ---
Dr. Dunlap reviewed carotid duplex ultrasound results, NNO, pt and updated
[2017-08-07] MEDS: Acetaminophen 500 MG Tablet 1000 MG PO (17:55)
[2017-08-08] MEDS: Senna/Docusate Sodium 1 Tablet PO ×2 (05:01→17:14)
[2017-08-08] MEDS: amLODIPine 5 MG Tablet PO (05:01)
[2017-08-08] MEDS: Glucerna Shake 120 ML LIQUID PO ×4 (05:01→19:32)
[2017-08-08] MEDS: Lisinopril 20 MG Tablet PO (05:01)
[2017-08-08] MEDS: Enoxaparin 40 MG/0.4 ML Syringe SC (05:01)
[2017-08-08] MEDS: Menthol/Lanolin/Calamine/Znox 113 GM Tube 1 APPLIC TOPICAL ×3 (05:01→19:34)
[2017-08-08] MEDS: Vitamin E 400 UNITS Capsule PO (05:01)
[2017-08-08] MEDS: Polyethylene Glycol 3350 17 GM PACKET PO (05:01)
[2017-08-08] MEDS: Aspirin 81 MG TAB.CHEW PO (07:57)
[2017-08-08] MEDS: Multivitamins,Therapeutic Tablet 1 TABLET PO (07:57)
[2017-08-08] MEDS: Galantamine Hydrobromide 4 MG Tablet PO ×2 (07:57→17:14)
--- NOTE | 2017-08-08 14:19 | NURSING ---
Addendum entered by Sarah Acevedo 08/08/17 14:24: [place]' CURRENT[place] [facility] [place] PA IN PLACE. Original Note: ALARM SOUNDING. R' UP OUT OF CHAIR AND WALKING. STATES I WAS TRYING TO SHUT THE DOOR. NOT HERE. WILL MOVE R' TO ROOM CLOSER TO NURSES STATION.
--- NOTE | 2017-08-08 15:13 | NURSING ---
attempted to call pt to update her on the room change, pt was found twice getting up on his own w/out assist. He is a two assist.
[2017-08-08 16:00] VITALS: BP 128/78; PULSE 74; RESP 16; TEMP 36.6; O2SAT 96
[2017-08-09] MEDS: Polyethylene Glycol 3350 17 GM PACKET PO (05:05)
[2017-08-09] MEDS: amLODIPine 5 MG Tablet PO (05:05)
[2017-08-09] MEDS: Lisinopril 20 MG Tablet PO (05:05)
[2017-08-09] MEDS: Senna/Docusate Sodium 1 Tablet PO ×2 (05:05→17:06)
[2017-08-09] MEDS: Enoxaparin 40 MG/0.4 ML Syringe SC (05:05)
[2017-08-09] MEDS: Vitamin E 400 UNITS Capsule PO (05:05)
[2017-08-09] MEDS: Glucerna Shake 120 ML LIQUID PO ×4 (05:09→21:17)
[2017-08-09] MEDS: Menthol/Lanolin/Calamine/Znox 113 GM Tube 1 APPLIC TOPICAL ×3 (05:09→21:18)
[2017-08-09] MEDS: Multivitamins,Therapeutic Tablet 1 TABLET PO (08:25)
[2017-08-09] MEDS: Aspirin 81 MG TAB.CHEW PO (08:25)
[2017-08-09] MEDS: Galantamine Hydrobromide 4 MG Tablet PO ×2 (08:25→17:06)
--- NOTE | 2017-08-09 10:06 | CASEMGMT ---
Plan of care meeting held. Resident present as well as resident family. No discharge date set at this time. Resident to continue with further care and treatment on the Transitional Care Unit. Resident plans to discharge home with spouse. Team expressing concerns of resident spouse being able to met resident needs within the home at time of discharge. Broaching topic of a plan B in the event that resident is unable to discharge home with spouse. Resident family reporting to be looking into possible penitentiary options such as an extended care nursing facility. Support given. Will continue to follow. Bibi LOCKHART, RAIL PROJECT ENGINEER
[2017-08-09 15:36] VITALS: BP 130/65; PULSE 76; RESP 18; TEMP 36.7; O2SAT 93
[2017-08-09 23:18] VITALS: RESP 15
[2017-08-10] MEDS: Enoxaparin 40 MG/0.4 ML Syringe SC (04:54)
[2017-08-10] MEDS: Vitamin E 400 UNITS Capsule PO (04:54)
[2017-08-10] MEDS: Polyethylene Glycol 3350 17 GM PACKET PO (04:54)
[2017-08-10] MEDS: Senna/Docusate Sodium 1 Tablet PO ×2 (04:54→17:47)
[2017-08-10] MEDS: Lisinopril 20 MG Tablet PO (04:54)
[2017-08-10] MEDS: Menthol/Lanolin/Calamine/Znox 113 GM Tube 1 APPLIC TOPICAL ×3 (04:55→19:39)
[2017-08-10] MEDS: amLODIPine 5 MG Tablet PO (04:55)
[2017-08-10] MEDS: Glucerna Shake 120 ML LIQUID PO ×3 (04:56→19:42)
[2017-08-10] MEDS: Galantamine Hydrobromide 4 MG Tablet PO ×2 (07:55→17:47)
[2017-08-10] MEDS: Multivitamins,Therapeutic Tablet 1 TABLET PO (07:55)
[2017-08-10] MEDS: Aspirin 81 MG TAB.CHEW PO (07:56)
--- NOTE | 2017-08-10 14:57 | MDS.RN ---
Pain interview for MORTEZA 08/11/17 completed.
[2017-08-10 16:00] VITALS: BP 130/75; PULSE 70; RESP 20; TEMP 36.5; O2SAT 95
[2017-08-11] MEDS: Vitamin E 400 UNITS Capsule PO (04:37)
[2017-08-11] MEDS: amLODIPine 5 MG Tablet PO (04:37)
[2017-08-11] MEDS: Lisinopril 20 MG Tablet PO (04:37)
[2017-08-11] MEDS: Polyethylene Glycol 3350 17 GM PACKET PO (04:37)
[2017-08-11] MEDS: Senna/Docusate Sodium 1 Tablet PO ×2 (04:37→16:44)
[2017-08-11] MEDS: Menthol/Lanolin/Calamine/Znox 113 GM Tube 1 APPLIC TOPICAL ×3 (04:37→20:08)
[2017-08-11] MEDS: Enoxaparin 40 MG/0.4 ML Syringe SC (04:37)
[2017-08-11] MEDS: Glucerna Shake 120 ML LIQUID PO ×4 (04:38→20:08)
[2017-08-11] MEDS: Aspirin 81 MG TAB.CHEW PO (08:35)
[2017-08-11] MEDS: Multivitamins,Therapeutic Tablet 1 TABLET PO (08:35)
[2017-08-11] MEDS: Galantamine Hydrobromide 4 MG Tablet PO ×2 (08:36→16:44)
[2017-08-11 10:00] VITALS: PULSE 69; RESP 18; O2SAT 98
--- NOTE | 2017-08-11 10:31 | CASEMGMT ---
Brief interview for mental status (BIMS) and resident mood interview (PHQ-9) completed on this day. BIMS score 06/09. PHQ-9 score
[2017-08-11 16:00] VITALS: BP 156/79; PULSE 69; RESP 18; TEMP 36.1; O2SAT 95
[2017-08-12] MEDS: Glucerna Shake 120 ML LIQUID PO ×4 (05:53→21:31)
[2017-08-12] MEDS: Menthol/Lanolin/Calamine/Znox 113 GM Tube 1 APPLIC TOPICAL ×3 (05:55→21:31)
[2017-08-12] MEDS: Senna/Docusate Sodium 1 Tablet PO ×2 (05:57→18:11)
[2017-08-12] MEDS: Enoxaparin 40 MG/0.4 ML Syringe SC (05:57)
[2017-08-12] MEDS: Lisinopril 20 MG Tablet PO (05:57)
[2017-08-12] MEDS: Vitamin E 400 UNITS Capsule PO (05:57)
[2017-08-12] MEDS: amLODIPine 5 MG Tablet PO (05:57)
[2017-08-12 06:55] LABS: Absolute Lymphocyte Count 1.65 X10^3/ul (0.83-4.51); Absolute Neutrophil Count 2.3 X10^3/uL (2.0-7.7); Basophil# 0.02 X10^3/uL; Basophil% 0.4 % (0-1); Eosinophils% 2.2 % (0-5); Hematocrit 39.9 % (40-54); Hemoglobin 13.4 g/dl (13.0-16.5); Lymphocyte # 1.65 X10^3/ul (4.0); Mean Corp Hgb Conc 33.6 g/gl (32-36); Mean Corpuscular Hgb 30.9 pg (27.0-32.0); Mean Corpuscular Volume 92.1 fL (80-94); Mean Platelet Vol. 10.2 fl (6.2-12.0); Monocyte# 0.34 X10^3/uL; Monocyte% 7.6 % (0-10); Neutrophil # 2.34 X10^3/uL (2.7-7.7); Neutrophil % 52.6 % (47-70); Platelet Count 161 K/mm3 (150-450); RBC Distribution Width CV 12.5 % (11.6-14.6); RBC Distribution Width SD 40.9 fl (35.1-43.9); Red Blood Count 4.33 M/mm3 (4.6-6.2); White Blood Count 4.5 K/mm3 (4.4-11.0)
[2017-08-12 07:05] LABS: POSITIVE COUNT NO; POSITIVE DIFFERENTIAL NO; POSITIVE MORPHOLOGY NO
[2017-08-12 07:13] LABS: Anion Gap 9 (5-15); BUN 16 mg/dL (7-18); BUN/Creat Ratio 21.1 RATIO (10-20); Calcium,Total 8.8 mg/dL (8.5-10.1); Chloride 103 mmol/L (98-107); Creatinine, Serum 0.76 mg/dL (0.70-1.30); EST Glomerular Filtration Rate 106 mL/min (>60); Est Glom Filt Rate - Afr Amer 129 mL/min (>60); Estimated Creatinine Clearance 77.16 ml/min; Glucose 117 mg/dL (74-106); Potassium 4.2 mmol/L (3.5-5.1); Sodium Level 137 mmol/L (136-145)
[2017-08-12] MEDS: Aspirin 81 MG TAB.CHEW PO (08:39)
[2017-08-12] MEDS: Multivitamins,Therapeutic Tablet 1 TABLET PO (08:39)
[2017-08-12] MEDS: Galantamine Hydrobromide 4 MG Tablet PO ×2 (08:39→18:11)
[2017-08-12] MEDS: Tuberculin,Purif.prot.deriv. 50 TU/ML Vial 5 ML ID (10:43)
[2017-08-12 16:00] VITALS: BP 154/81; PULSE 94; RESP 16; TEMP 37.1; O2SAT 94
[2017-08-12] MEDS: Acetaminophen 500 MG Tablet 1000 MG PO (16:35)
[2017-08-13] MEDS: Menthol/Lanolin/Calamine/Znox 113 GM Tube 1 APPLIC TOPICAL ×2 (05:51→20:34)
[2017-08-13] MEDS: Enoxaparin 40 MG/0.4 ML Syringe SC (05:53)
[2017-08-13] MEDS: Lisinopril 20 MG Tablet PO (05:53)
[2017-08-13] MEDS: Vitamin E 400 UNITS Capsule PO (05:53)
[2017-08-13] MEDS: amLODIPine 5 MG Tablet PO (05:53)
[2017-08-13] MEDS: Multivitamins,Therapeutic Tablet 1 TABLET PO (08:20)
[2017-08-13] MEDS: Aspirin 81 MG TAB.CHEW PO (08:20)
[2017-08-13] MEDS: Galantamine Hydrobromide 4 MG Tablet PO ×2 (08:21→17:51)
--- NOTE | 2017-08-13 13:09 | NURSING ---
per shift change report this AM, staff reporting pt removes mask consistently throughout night. When staff rounding, BIPAP mask found on floor or tubing pulled apart. Reapplied several times and pt continues to be noncompliant. Staff in and placed machine on pt at this time for a nap. at bedside
[2017-08-13 15:36] VITALS: BP 139/76; PULSE 67; RESP 18; TEMP 36.3; O2SAT 95
[2017-08-13] MEDS: Glucerna Shake 120 ML LIQUID PO ×2 (17:50→20:32)
[2017-08-13] MEDS: Senna/Docusate Sodium 1 Tablet PO (17:52)
[2017-08-14] MEDS: Lisinopril 20 MG Tablet PO (05:04)
[2017-08-14] MEDS: amLODIPine 5 MG Tablet PO (05:04)
[2017-08-14] MEDS: Enoxaparin 40 MG/0.4 ML Syringe SC (05:04)
[2017-08-14] MEDS: Vitamin E 400 UNITS Capsule PO (05:04)
[2017-08-14] MEDS: Glucerna Shake 120 ML LIQUID PO ×4 (05:04→19:43)
[2017-08-14] MEDS: Senna/Docusate Sodium 1 Tablet PO ×2 (05:04→17:55)
[2017-08-14] MEDS: Menthol/Lanolin/Calamine/Znox 113 GM Tube 1 APPLIC TOPICAL ×3 (05:08→19:43)
[2017-08-14 07:30] VITALS: O2SAT 97
[2017-08-14] MEDS: Multivitamins,Therapeutic Tablet 1 TABLET PO (08:32)
[2017-08-14] MEDS: Aspirin 81 MG TAB.CHEW PO (08:32)
[2017-08-14] MEDS: Galantamine Hydrobromide 4 MG Tablet PO ×2 (08:32→17:55)
[2017-08-14 15:41] VITALS: BP 137/67; PULSE 66; RESP 18; TEMP 36.6; O2SAT 98
--- NOTE | 2017-08-15 00:51 | NURSING ---
Pt continuously removing Bipap this shift. The mask and tubing disconnected from each other and laying on the floor. Bipap put back together numerous times but pt still keeps disconnecting. Mask and tubing placed on bedside table at this time.
[2017-08-15] MEDS: Senna/Docusate Sodium 1 Tablet PO ×2 (04:51)
[2017-08-15] MEDS: Glucerna Shake 120 ML LIQUID PO ×3 (04:51→16:10)
[2017-08-15] MEDS: amLODIPine 5 MG Tablet PO (04:51)
[2017-08-15] MEDS: Acetaminophen 500 MG Tablet 1000 MG PO (04:51)
[2017-08-15] MEDS: Vitamin E 400 UNITS Capsule PO (04:51)
[2017-08-15] MEDS: Enoxaparin 40 MG/0.4 ML Syringe SC (04:52)
[2017-08-15] MEDS: Menthol/Lanolin/Calamine/Znox 113 GM Tube 1 APPLIC TOPICAL ×3 (04:54→19:57)
[2017-08-15] MEDS: Lisinopril 20 MG Tablet PO (04:55)
[2017-08-15 04:56] VITALS: O2SAT 98
[2017-08-15] MEDS: Aspirin 81 MG TAB.CHEW PO (08:00)
[2017-08-15] MEDS: Multivitamins,Therapeutic Tablet 1 TABLET PO (08:00)
[2017-08-15] MEDS: Galantamine Hydrobromide 4 MG Tablet PO ×2 (08:00→16:09)
[2017-08-15 15:27] VITALS: BP 117/62; PULSE 70; RESP 16; TEMP 36.2; O2SAT 95
[2017-08-16] MEDS: amLODIPine 5 MG Tablet PO (05:56)
[2017-08-16] MEDS: Polyethylene Glycol 3350 17 GM PACKET PO (05:57)
[2017-08-16] MEDS: Enoxaparin 40 MG/0.4 ML Syringe SC (05:57)
[2017-08-16] MEDS: Lisinopril 20 MG Tablet PO (05:57)
[2017-08-16] MEDS: Vitamin E 400 UNITS Capsule PO (05:57)
[2017-08-16] MEDS: Senna/Docusate Sodium 1 Tablet PO ×2 (05:57→17:35)
[2017-08-16] MEDS: Menthol/Lanolin/Calamine/Znox 113 GM Tube 1 APPLIC TOPICAL ×3 (05:57→19:31)
[2017-08-16] MEDS: Glucerna Shake 120 ML LIQUID PO ×4 (06:03→19:30)
[2017-08-16] MEDS: Aspirin 81 MG TAB.CHEW PO (08:35)
[2017-08-16] MEDS: Galantamine Hydrobromide 4 MG Tablet PO ×2 (08:35→17:35)
[2017-08-16] MEDS: Multivitamins,Therapeutic Tablet 1 TABLET PO (08:35)
[2017-08-16 10:00] VITALS: PULSE 76; RESP 16; O2SAT 94
[2017-08-16 15:47] VITALS: BP 125/70; PULSE 66; RESP 20; TEMP 36.9; O2SAT 96
[2017-08-17] MEDS: Enoxaparin 40 MG/0.4 ML Syringe SC (05:29)
[2017-08-17] MEDS: Menthol/Lanolin/Calamine/Znox 113 GM Tube 1 APPLIC TOPICAL ×3 (05:29→19:54)
[2017-08-17] MEDS: Lisinopril 20 MG Tablet PO (05:29)
[2017-08-17] MEDS: Senna/Docusate Sodium 1 Tablet PO ×2 (05:29→17:52)
[2017-08-17] MEDS: amLODIPine 5 MG Tablet PO (05:29)
[2017-08-17] MEDS: Glucerna Shake 120 ML LIQUID PO ×4 (05:29→19:53)
[2017-08-17] MEDS: Vitamin E 400 UNITS Capsule PO (05:29)
[2017-08-17] MEDS: Multivitamins,Therapeutic Tablet 1 TABLET PO (08:13)
[2017-08-17] MEDS: Galantamine Hydrobromide 4 MG Tablet PO ×2 (08:13→17:51)
[2017-08-17] MEDS: Aspirin 81 MG TAB.CHEW PO (08:14)
[2017-08-17 10:00] VITALS: PULSE 95; RESP 16; O2SAT 95
--- NOTE | 2017-08-17 11:57 | MDS.RN ---
Information for the mds was obtained from review of the clinical record, interview of resident, staff, and direct observation of resident's care.
[2017-08-17 15:38] VITALS: BP 133/67; PULSE 71; RESP 18; TEMP 36.4; O2SAT 97
[2017-08-17] MEDS: Acetaminophen 500 MG Tablet 1000 MG PO (15:43)
[2017-08-18] MEDS: Lisinopril 20 MG Tablet PO (04:35)
[2017-08-18] MEDS: Glucerna Shake 120 ML LIQUID PO ×4 (04:35→19:50)
[2017-08-18] MEDS: amLODIPine 5 MG Tablet PO (04:35)
[2017-08-18] MEDS: Enoxaparin 40 MG/0.4 ML Syringe SC (04:35)
[2017-08-18] MEDS: Vitamin E 400 UNITS Capsule PO (04:35)
[2017-08-18] MEDS: Senna/Docusate Sodium 1 Tablet PO ×2 (04:35→16:39)
[2017-08-18] MEDS: Menthol/Lanolin/Calamine/Znox 113 GM Tube 1 APPLIC TOPICAL ×3 (04:39→19:51)
[2017-08-18] MEDS: Aspirin 81 MG TAB.CHEW PO (07:50)
[2017-08-18] MEDS: Galantamine Hydrobromide 4 MG Tablet PO ×2 (07:50→16:39)
[2017-08-18] MEDS: Multivitamins,Therapeutic Tablet 1 TABLET PO (07:50)
--- NOTE | 2017-08-18 10:00 | CASEMGMT ---
Brief interview for mental status (BIMS) and resident mood interview (PHQ-9) completed on this day. BIMS score 15/15. PHQ-9 score
[2017-08-18 15:34] VITALS: BP 130/73; PULSE 72; RESP 20; TEMP 36.8; O2SAT 96
[2017-08-18 19:55] VITALS: O2SAT 98
[2017-08-19] MEDS: Glucerna Shake 120 ML LIQUID PO ×4 (05:39→21:01)
[2017-08-19] MEDS: Vitamin E 400 UNITS Capsule PO (05:39)
[2017-08-19] MEDS: Enoxaparin 40 MG/0.4 ML Syringe SC (05:39)
[2017-08-19] MEDS: Senna/Docusate Sodium 1 Tablet PO ×2 (05:39→16:27)
[2017-08-19] MEDS: amLODIPine 5 MG Tablet PO (05:39)
[2017-08-19] MEDS: Lisinopril 20 MG Tablet PO (05:39)
[2017-08-19] MEDS: Menthol/Lanolin/Calamine/Znox 113 GM Tube 1 APPLIC TOPICAL ×3 (05:43→21:01)
[2017-08-19 08:30] LABS: Absolute Lymphocyte Count 1.68 X10^3/ul (0.83-4.51); Absolute Neutrophil Count 2.9 X10^3/uL (2.0-7.7); Basophil# 0.03 X10^3/uL; Basophil% 0.6 % (0-1); Eosinophil# 0.11 X10^3/uL; Eosinophils% 2.2 % (0-5); Hematocrit 38.1 % (40-54); Lymphocyte # 1.68 X10^3/ul (4.0); Lymphocyte % 33.3 % (19-41); Mean Corp Hgb Conc 34.1 g/gl (32-36); Mean Corpuscular Hgb 31.2 pg (27.0-32.0); Mean Corpuscular Volume 91.4 fL (80-94); Mean Platelet Vol. 10.1 fl (6.2-12.0); Monocyte# 0.38 X10^3/uL; Monocyte% 7.5 % (0-10); Neutrophil # 2.85 X10^3/uL (2.7-7.7); Neutrophil % 56.4 % (47-70); Platelet Count 167 K/mm3 (150-450); RBC Distribution Width SD 39.4 fl (35.1-43.9); Red Blood Count 4.17 M/mm3 (4.6-6.2); White Blood Count 5.1 K/mm3 (4.4-11.0)
[2017-08-19 08:35] LABS: POSITIVE COUNT NO; POSITIVE DIFFERENTIAL NO; POSITIVE MORPHOLOGY NO
[2017-08-19 08:45] LABS: Anion Gap 6 (5-15); BUN 17 mg/dL (7-18); BUN/Creat Ratio 25.8 RATIO (10-20); Calcium,Total 8.9 mg/dL (8.5-10.1); Chloride 102 mmol/L (98-107); Creatinine, Serum 0.66 mg/dL (0.70-1.30); EST Glomerular Filtration Rate 125 mL/min (>60); Est Glom Filt Rate - Afr Amer 151 mL/min (>60); Estimated Creatinine Clearance 77.16 ml/min; Glucose 112 mg/dL (74-106); Potassium 3.9 mmol/L (3.5-5.1); Sodium Level 137 mmol/L (136-145)
[2017-08-19] MEDS: Aspirin 81 MG TAB.CHEW PO (08:47)
[2017-08-19] MEDS: Multivitamins,Therapeutic Tablet 1 TABLET PO (08:47)
[2017-08-19] MEDS: Galantamine Hydrobromide 4 MG Tablet PO ×2 (08:47→16:27)
--- NOTE | 2017-08-19 13:57 | NURSING ---
Pt's asking about Fish Oil and Vitamin B12, shows this nurse home med list. Dr. Dunlap updated, N.O. received, pt and updated on new orders.
[2017-08-19 15:29] VITALS: BP 142/72; PULSE 69; RESP 16; TEMP 36.7; O2SAT 95
[2017-08-20] MEDS: Enoxaparin 40 MG/0.4 ML Syringe SC (04:47)
[2017-08-20] MEDS: Menthol/Lanolin/Calamine/Znox 113 GM Tube 1 APPLIC TOPICAL ×3 (04:47→19:58)
[2017-08-20] MEDS: Glucerna Shake 120 ML LIQUID PO ×3 (04:47→16:59)
[2017-08-20] MEDS: Vitamin E 400 UNITS Capsule PO (04:48)
[2017-08-20] MEDS: Lisinopril 20 MG Tablet PO (04:48)
[2017-08-20] MEDS: Senna/Docusate Sodium 1 Tablet PO ×2 (04:48→16:59)
[2017-08-20] MEDS: amLODIPine 5 MG Tablet PO (04:48)
[2017-08-20 04:55] VITALS: PULSE 69; O2SAT 98
[2017-08-20] MEDS: Cyanocobalamin 500 MCG Tablet 1000 MCG PO (07:47)
[2017-08-20] MEDS: Aspirin 81 MG TAB.CHEW PO (07:47)
[2017-08-20] MEDS: Galantamine Hydrobromide 4 MG Tablet PO ×2 (07:47→16:59)
[2017-08-20] MEDS: Omega-3 Acid Ethyl Esters 1 GM Capsule PO (07:47)
[2017-08-20] MEDS: Multivitamins,Therapeutic Tablet 1 TABLET PO (07:47)
[2017-08-20 15:22] VITALS: BP 121/66; PULSE 63; RESP 14; TEMP 36.6; O2SAT 96
[2017-08-21] MEDS: Senna/Docusate Sodium 1 Tablet PO ×2 (05:25→17:30)
[2017-08-21] MEDS: Vitamin E 400 UNITS Capsule PO (05:25)
[2017-08-21] MEDS: Menthol/Lanolin/Calamine/Znox 113 GM Tube 1 APPLIC TOPICAL ×3 (05:25→21:22)
[2017-08-21] MEDS: Enoxaparin 40 MG/0.4 ML Syringe SC (05:25)
[2017-08-21] MEDS: Lisinopril 20 MG Tablet PO (05:25)
[2017-08-21] MEDS: amLODIPine 5 MG Tablet PO (05:25)
[2017-08-21] MEDS: Omega-3 Acid Ethyl Esters 1 GM Capsule PO (08:03)
[2017-08-21] MEDS: Aspirin 81 MG TAB.CHEW PO (08:03)
[2017-08-21] MEDS: Galantamine Hydrobromide 4 MG Tablet PO ×2 (08:04→17:32)
[2017-08-21] MEDS: Multivitamins,Therapeutic Tablet 1 TABLET PO (08:04)
[2017-08-21] MEDS: Cyanocobalamin 500 MCG Tablet 1000 MCG PO (08:05)
[2017-08-21] MEDS: Glucerna Shake 120 ML LIQUID PO (12:01)
[2017-08-21 16:00] VITALS: BP 132/75; PULSE 72; RESP 18; TEMP 36.9; O2SAT 98
[2017-08-22] MEDS: Lisinopril 20 MG Tablet PO (05:38)
[2017-08-22] MEDS: amLODIPine 5 MG Tablet PO (05:38)
[2017-08-22] MEDS: Polyethylene Glycol 3350 17 GM PACKET PO (05:38)
[2017-08-22] MEDS: Vitamin E 400 UNITS Capsule PO (05:38)
[2017-08-22] MEDS: Enoxaparin 40 MG/0.4 ML Syringe SC (05:38)
[2017-08-22] MEDS: Senna/Docusate Sodium 1 Tablet PO ×2 (05:38→16:38)
[2017-08-22] MEDS: Menthol/Lanolin/Calamine/Znox 113 GM Tube 1 APPLIC TOPICAL ×3 (05:39→20:04)
[2017-08-22] MEDS: Aspirin 81 MG TAB.CHEW PO (08:48)
[2017-08-22] MEDS: Multivitamins,Therapeutic Tablet 1 TABLET PO (08:48)
[2017-08-22] MEDS: Cyanocobalamin 500 MCG Tablet 1000 MCG PO (08:48)
[2017-08-22] MEDS: Galantamine Hydrobromide 4 MG Tablet PO ×2 (08:48→16:38)
[2017-08-22] MEDS: Omega-3 Acid Ethyl Esters 1 GM Capsule PO (08:48)
--- NOTE | 2017-08-22 11:34 | NURSING ---
PT HAD APPT WITH DR DURHAM YESTERDAY PER NO NEW ORDERS. REPLACEMENT PARTS WERE GIVEN TO HER FOR HIS BIPAP MACHINE
[2017-08-22] MEDS: Glucerna Shake 120 ML LIQUID PO ×3 (11:42→20:02)
[2017-08-22 16:00] VITALS: BP 118/64; PULSE 65; RESP 18; TEMP 36.7; O2SAT 95
[2017-08-22 20:06] VITALS: O2SAT 97
[2017-08-23] MEDS: amLODIPine 5 MG Tablet PO (05:34)
[2017-08-23] MEDS: Polyethylene Glycol 3350 17 GM PACKET PO (05:34)
[2017-08-23] MEDS: Senna/Docusate Sodium 1 Tablet PO (05:34)
[2017-08-23] MEDS: Vitamin E 400 UNITS Capsule PO (05:34)
[2017-08-23] MEDS: Lisinopril 20 MG Tablet PO (05:34)
[2017-08-23] MEDS: Enoxaparin 40 MG/0.4 ML Syringe SC (05:34)
[2017-08-23] MEDS: Glucerna Shake 120 ML LIQUID PO ×4 (05:34→19:53)
[2017-08-23] MEDS: Menthol/Lanolin/Calamine/Znox 113 GM Tube 1 APPLIC TOPICAL ×3 (05:40→19:54)
[2017-08-23] MEDS: Multivitamins,Therapeutic Tablet 1 TABLET PO (08:49)
[2017-08-23] MEDS: Galantamine Hydrobromide 4 MG Tablet PO ×2 (08:49→17:28)
[2017-08-23] MEDS: Aspirin 81 MG TAB.CHEW PO (08:49)
[2017-08-23] MEDS: Cyanocobalamin 500 MCG Tablet 1000 MCG PO (08:50)
[2017-08-23] MEDS: Omega-3 Acid Ethyl Esters 1 GM Capsule PO (08:50)
[2017-08-23 15:55] VITALS: BP 150/76; PULSE 70; RESP 20; TEMP 36.8; O2SAT 95
[2017-08-24] MEDS: Polyethylene Glycol 3350 17 GM PACKET PO (05:58)
[2017-08-24] MEDS: Menthol/Lanolin/Calamine/Znox 113 GM Tube 1 APPLIC TOPICAL ×3 (06:06→20:33)
[2017-08-24] MEDS: Senna/Docusate Sodium 1 Tablet PO ×2 (06:06→16:38)
[2017-08-24] MEDS: Lisinopril 20 MG Tablet PO (06:06)
[2017-08-24] MEDS: Glucerna Shake 120 ML LIQUID PO ×4 (06:06→20:33)
[2017-08-24] MEDS: amLODIPine 5 MG Tablet PO (06:06)
[2017-08-24] MEDS: Vitamin E 400 UNITS Capsule PO (06:06)
[2017-08-24] MEDS: Enoxaparin 40 MG/0.4 ML Syringe SC (06:06)
[2017-08-24] MEDS: Galantamine Hydrobromide 4 MG Tablet PO ×2 (08:39→16:38)
[2017-08-24] MEDS: Omega-3 Acid Ethyl Esters 1 GM Capsule PO (08:39)
[2017-08-24] MEDS: Cyanocobalamin 500 MCG Tablet 1000 MCG PO (08:39)
[2017-08-24] MEDS: Multivitamins,Therapeutic Tablet 1 TABLET PO (08:39)
[2017-08-24] MEDS: Aspirin 81 MG TAB.CHEW PO (08:40)
[2017-08-24 15:36] VITALS: BP 130/68; PULSE 86; RESP 20; TEMP 37.1; O2SAT 97
[2017-08-25] MEDS: Polyethylene Glycol 3350 17 GM PACKET PO (04:52)
[2017-08-25] MEDS: Glucerna Shake 120 ML LIQUID PO ×4 (04:56→21:05)
[2017-08-25] MEDS: Enoxaparin 40 MG/0.4 ML Syringe SC (04:56)
[2017-08-25] MEDS: Vitamin E 400 UNITS Capsule PO (04:56)
[2017-08-25] MEDS: Senna/Docusate Sodium 1 Tablet PO ×2 (04:56→18:08)
[2017-08-25] MEDS: amLODIPine 5 MG Tablet PO (04:56)
[2017-08-25] MEDS: Lisinopril 20 MG Tablet PO (04:56)
[2017-08-25] MEDS: Menthol/Lanolin/Calamine/Znox 113 GM Tube 1 APPLIC TOPICAL ×3 (05:02→21:14)
[2017-08-25] MEDS: Aspirin 81 MG TAB.CHEW PO (08:57)
[2017-08-25] MEDS: Galantamine Hydrobromide 4 MG Tablet PO ×2 (08:57→18:09)
[2017-08-25] MEDS: Omega-3 Acid Ethyl Esters 1 GM Capsule PO (08:57)
[2017-08-25] MEDS: Cyanocobalamin 500 MCG Tablet 1000 MCG PO (08:57)
[2017-08-25] MEDS: Multivitamins,Therapeutic Tablet 1 TABLET PO (08:57)
[2017-08-25 10:00] VITALS: PULSE 76; RESP 18; O2SAT 95
[2017-08-25 16:00] VITALS: BP 152/83; PULSE 63; RESP 18; TEMP 36.4; O2SAT 97
--- NOTE | 2017-08-25 18:35 | NURSING ---
Nurse assists pt. to/from bathroom then to bed. at bedside.
--- NOTE | 2017-08-26 03:00 | NURSING ---
pt incont of a large amount of urine. pt cleaned up.
[2017-08-26] MEDS: Enoxaparin 40 MG/0.4 ML Syringe SC (05:32)
[2017-08-26] MEDS: Senna/Docusate Sodium 1 Tablet PO ×2 (05:32→17:34)
[2017-08-26] MEDS: amLODIPine 5 MG Tablet PO (05:32)
[2017-08-26] MEDS: Polyethylene Glycol 3350 17 GM PACKET PO (05:32)
[2017-08-26] MEDS: Menthol/Lanolin/Calamine/Znox 113 GM Tube 1 APPLIC TOPICAL ×3 (05:32→21:27)
[2017-08-26] MEDS: Lisinopril 20 MG Tablet PO (05:32)
[2017-08-26] MEDS: Vitamin E 400 UNITS Capsule PO (05:32)
[2017-08-26] MEDS: Glucerna Shake 120 ML LIQUID PO ×4 (05:32→21:27)
[2017-08-26 07:59] LABS: Absolute Lymphocyte Count 1.72 X10^3/ul (0.83-4.51); Absolute Neutrophil Count 2.5 X10^3/uL (2.0-7.7); Basophil# 0.02 X10^3/uL; Basophil% 0.4 % (0-1); Eosinophil# 0.13 X10^3/uL; Eosinophils% 2.7 % (0-5); Hematocrit 38.5 % (40-54); Lymphocyte # 1.72 X10^3/ul (4.0); Lymphocyte % 36.1 % (19-41); Mean Corp Hgb Conc 33.8 g/gl (32-36); Mean Corpuscular Hgb 30.9 pg (27.0-32.0); Mean Corpuscular Volume 91.4 fL (80-94); Mean Platelet Vol. 10.1 fl (6.2-12.0); Monocyte# 0.43 X10^3/uL; Neutrophil # 2.46 X10^3/uL (2.7-7.7); Neutrophil % 51.6 % (47-70); Platelet Count 157 K/mm3 (150-450); RBC Distribution Width CV 12.3 % (11.6-14.6); RBC Distribution Width SD 40.4 fl (35.1-43.9); Red Blood Count 4.21 M/mm3 (4.6-6.2); White Blood Count 4.8 K/mm3 (4.4-11.0)
[2017-08-26 08:01] LABS: POSITIVE COUNT NO; POSITIVE DIFFERENTIAL NO; POSITIVE MORPHOLOGY NO
[2017-08-26 08:19] LABS: Anion Gap 5 (5-15); BUN 14 mg/dL (7-18); BUN/Creat Ratio 16.5 RATIO (10-20); Calcium,Total 8.8 mg/dL (8.5-10.1); Chloride 102 mmol/L (98-107); Creatinine, Serum 0.85 mg/dL (0.70-1.30); EST Glomerular Filtration Rate 93 mL/min (>60); Est Glom Filt Rate - Afr Amer 113 mL/min (>60); Estimated Creatinine Clearance 90.77 ml/min; Glucose 112 mg/dL (74-106); Potassium 4.2 mmol/L (3.5-5.1); Sodium Level 139 mmol/L (136-145)
[2017-08-26] MEDS: Aspirin 81 MG TAB.CHEW PO (08:19)
[2017-08-26] MEDS: Cyanocobalamin 500 MCG Tablet 1000 MCG PO (08:19)
[2017-08-26] MEDS: Omega-3 Acid Ethyl Esters 1 GM Capsule PO (08:19)
[2017-08-26] MEDS: Galantamine Hydrobromide 4 MG Tablet PO ×2 (08:19→17:34)
[2017-08-26] MEDS: Multivitamins,Therapeutic Tablet 1 TABLET PO (08:19)
[2017-08-26 15:43] VITALS: BP 131/72; PULSE 65; RESP 18; TEMP 36.7; O2SAT 97
[2017-08-26 21:30] VITALS: PULSE 66; O2SAT 98
[2017-08-27] MEDS: Polyethylene Glycol 3350 17 GM PACKET PO (04:42)
[2017-08-27] MEDS: Vitamin E 400 UNITS Capsule PO (04:43)
[2017-08-27] MEDS: Glucerna Shake 120 ML LIQUID PO ×3 (04:43→18:23)
[2017-08-27] MEDS: Senna/Docusate Sodium 1 Tablet PO ×2 (04:43→18:23)
[2017-08-27] MEDS: Lisinopril 20 MG Tablet PO (04:43)
[2017-08-27] MEDS: Enoxaparin 40 MG/0.4 ML Syringe SC (04:43)
[2017-08-27] MEDS: Menthol/Lanolin/Calamine/Znox 113 GM Tube 1 APPLIC TOPICAL ×3 (04:43→19:42)
[2017-08-27] MEDS: amLODIPine 5 MG Tablet PO (04:43)
[2017-08-27] MEDS: Omega-3 Acid Ethyl Esters 1 GM Capsule PO (08:11)
[2017-08-27] MEDS: Galantamine Hydrobromide 4 MG Tablet PO ×2 (08:11→18:25)
[2017-08-27] MEDS: Aspirin 81 MG TAB.CHEW PO (08:11)
[2017-08-27] MEDS: Cyanocobalamin 500 MCG Tablet 1000 MCG PO (08:11)
[2017-08-27] MEDS: Multivitamins,Therapeutic Tablet 1 TABLET PO (08:11)
[2017-08-27 15:46] VITALS: BP 127/69; PULSE 72; RESP 18; TEMP 37.1; O2SAT 93
[2017-08-27 19:35] VITALS: PULSE 69; O2SAT 96
[2017-08-28] MEDS: Polyethylene Glycol 3350 17 GM PACKET PO (04:49)
[2017-08-28] MEDS: Enoxaparin 40 MG/0.4 ML Syringe SC (04:49)
[2017-08-28] MEDS: Glucerna Shake 120 ML LIQUID PO ×3 (04:49→16:53)
[2017-08-28] MEDS: Menthol/Lanolin/Calamine/Znox 113 GM Tube 1 APPLIC TOPICAL ×3 (04:49→20:38)
[2017-08-28] MEDS: amLODIPine 5 MG Tablet PO (04:50)
[2017-08-28] MEDS: Senna/Docusate Sodium 1 Tablet PO ×2 (04:50→16:54)
[2017-08-28] MEDS: Lisinopril 20 MG Tablet PO (04:50)
[2017-08-28] MEDS: Vitamin E 400 UNITS Capsule PO (04:50)
[2017-08-28] MEDS: Omega-3 Acid Ethyl Esters 1 GM Capsule PO (08:42)
[2017-08-28] MEDS: Multivitamins,Therapeutic Tablet 1 TABLET PO (08:42)
[2017-08-28] MEDS: Galantamine Hydrobromide 4 MG Tablet PO ×2 (08:42→16:54)
[2017-08-28] MEDS: Aspirin 81 MG TAB.CHEW PO (08:42)
[2017-08-28] MEDS: Cyanocobalamin 500 MCG Tablet 1000 MCG PO (08:42)
[2017-08-28 16:00] VITALS: BP 127/72; PULSE 69; RESP 18; TEMP 36.5; O2SAT 97
--- NOTE | 2017-08-28 20:03 | PCM.TCUNOT ---
Subjective: Resident seen in room with spouse. He has no complaints. He states he feels well, denies pain, chest pain, shortness of breath. No problems going to bathroom. Vitals/I&O's: Vital Signs Temp Pulse Resp BP Pulse Ox 97.7 F L 69 18 127/72 H 97 08/28/17 16:00 08/28/17 16:00 08/28/17 16:00 08/28/17 16:00 08/28/17 16:00 Oxygen Delivery Method Room Air Weight: 93.8 kg Body Mass Index (BMI) 24.6 Finger Stick Blood Glucose 168 Intake and Output for Last 24 Hours 08/26/17 08/27/17 08/28/17 23:59 23:59 23:59 Intake Total 1440 / 1440 1680 / 1680 1680 / 1680 Balance 1440 / 1440 1680 / 1680 1680 / 1680 Past Medical History Past Medical History (Chronic Problems): Chronic Problems (Last Updated 06/12/17 @ 13:43 by Lobo Cheng DO) Vascular dementia (Chronic) Cervical spinal stenosis (Chronic) Left hemiparesis (Chronic) Tongue cancer (Chronic) Obstructive sleep apnea (Chronic) Hyperlipidemia (Chronic) Overactive bladder (Chronic) Cerebrovascular disease (Chronic) Stroke (Chronic) HTN (hypertension) (Chronic) Allergies chocolate flavor Adverse Reaction (Unknown, Verified 07/30/17 05:32) Other Pork/Porcine Containing Products Adverse Reaction (Unknown, Verified 07/30/17 05:32) Other atorvastatin [From Lipitor] Adverse Reaction (Verified 07/30/17 05:35) Other oxybutynin Adverse Reaction (Verified 07/30/17 05:35) Other Home Medications: Ambulatory Orders Medication Instructions Recorded Aspirin [Aspirin, Baby] 81 mg PO DAILY@0800 06/12/17 Cholecalciferol (Vitamin D3) 5,000 unit PO DAILY 06/12/17 [Vitamin D3] Multivitamins,Therapeutic 1 tablet PO DAILY 06/12/17 [Multivitamin] Cyanocobalamin (Vitamin B-12) 3,000 mcg PO DAILY 07/30/17 [Vitamin B-12] Multivit-Min/Folic Acid/Biotin 1 each PO DAILY 07/30/17 [Hair, Skin and Nails Caplet] [place]-3/Dha/Epa/Fish Oil [Fish Oil 1,200 mg PO DAILY 07/30/17 [place]-3 EC 1,200 mg] Vitamin E (Dl,Tocopheryl Acet) 400 units PO DAILY 07/30/17 [Vitamin E] Amlodipine [Norvasc] 5 mg PO DAILY 08/04/17 Docusate Sodium [Colace] 100 mg PO BID PRN PRN capsule 08/04/17 Heparin Injection 5,000 units SC Q8 08/04/17 Lisinopril [Zestril] 20 mg PO DAILY 08/04/17 Magnesium Hydroxide [Milk Of 30 ml PO DAILY PRN PRN udc 08/04/17 Magnesia] Surgical History: total hip arthroplasty - Right hip, hemiarthroplasty., - - Tongue resection. Psychiatric History: No pertinent psych hx Lives: Spouse/ Significant Other Smoking Status: Never smoker Tobacco Use: Non-smoker Alcohol: None Drugs: None - *Family History Maternal History Items: No pertinent history Paternal History Items: No pertinent history Review of Systems Constitutional: Denies: Chills, Fever, Weight Change HEENT: Denies: Head Aches, Sinus Congestion, Sinus Drainage Cardiovascular: Denies: Chest Pain, Palpitations Respiratory: Denies: Cough, Shortness of breath at rest, Sputum production Gastrointestinal: Denies: Abdominal Pain, Nausea, Vomiting Genitourinary: Denies: Dysuria Musculoskeletal: Denies: Joint Pain, Joint Tenderness Skin: Denies: Rash, Wounds Neurological: Denies: Numbness, Tingling, Focal weakness Psychiatric: Denies: Anxiety, Depression, Homicidal Ideations, Suicidal Ideations Hematologic/ Lymphatic: Denies: Easy Bruising, Easy Bleeding - Physical Exam General: Alert, Oriented x3, Cooperative HEENT: Atraumatic, PERRLA, EOMI, Normocephalic Neck: Supple, No JVD, Negative Carotid Bruits Lungs: Clear to auscultation, Normal air movement Cardiovascular: Regular rate, No murmurs Abdomen: Bowel Sounds Present, Soft, Non Tender Extremities: No edema, Capillary Refill Less than 3 Seconds Skin: No rashes, No breakdown Musculoskeletal: No Tenderness to Palpation of Joints or Extremities Neurological: Cranial nerves II-XII grossly intact Psych/Mental Status: Normal Affect, Appropriate Vital Signs Temp Pulse Resp BP Pulse Ox 97.7 F L 69 18 127/72 H 97 08/28/17 16:00 08/28/17 16:00 08/28/17 16:00 08/28/17 16:00 08/28/17 16:00 Oxygen Delivery Method Room Air Weight: 93.8 kg Body Mass Index (BMI) 24.6 Finger Stick Blood Glucose 168 Intake and Output for Last 24 Hours 08/26/17 08/27/17 08/28/17 23:59 23:59 23:59 Intake Total 1440 / 1440 1680 / 1680 1680 / 1680 Balance 1440 / 1440 1680 / 1680 1680 / 1680 Assessment/Plan 77 year old male with below past medical history significant for recent stroke, left hemiparesis, hospitalized for encephalopathy, stroke ruled out, complicated by moderate cervical canal stenosis, possible progression of vascular dementia, admitted to TCU for rehabilitation, strengthening, prior to discharge home with spouse. Debility - PT/OT. Dysphagia - ST. Pain - Tylenol 1000MG Q8H PRN mild pain. Bowel - Miralax 17MG daily, Senna/colace 1 tablet BID, Dulcolax 10MG PO daily PRN. DVT prophylaxis - Lovenox 40MG SC daily. Stroke with left hemiparesis - Aspirin 81MG daily. Vitamin B12 deficiency - B12 1000MCG daily. Nutrition - Glucerna 120ML 4x/day, MVI daily. Hypertension - Lisinopril 20MG daily, Amlodipine 5MG daily. Skin irritation - Calmoseptine TID buttocks. Hyperlipidemia - Statins intolerable, Fish Oil 1200MG daily. Vitamin E deficiency - Vitamin E 400IU daily. Vascular dementia - Tolerating Galantamine 4MG twice daily, and his cognition appears to be mildly improved.
--- NOTE | 2017-08-28 20:06 | PN_ITS ---
Subjective: Resident seen in room with spouse. He has no complaints. He states he feels well, denies pain, chest pain, shortness of breath. No problems going to bathroom. Vitals/I&O's: Vital Signs Temp Pulse Resp BP Pulse Ox 97.7 F L 69 18 127/72 H 97 08/28/17 16:00 08/28/17 16:00 08/28/17 16:00 08/28/17 16:00 08/28/17 16:00 Oxygen Delivery Method Room Air Weight: 93.8 kg Body Mass Index (BMI) 24.6 Finger Stick Blood Glucose 168 Intake and Output for Last 24 Hours 08/26/17 08/27/17 08/28/17 23:59 23:59 23:59 Intake Total 1440 / 1440 1680 / 1680 1680 / 1680 Balance 1440 / 1440 1680 / 1680 1680 / 1680 Past Medical History Past Medical History (Chronic Problems): Chronic Problems (Last Updated 06/12/17 @ 13:43 by Lobo Cheng DO) Vascular dementia (Chronic) Cervical spinal stenosis (Chronic) Left hemiparesis (Chronic) Tongue cancer (Chronic) Obstructive sleep apnea (Chronic) Hyperlipidemia (Chronic) Overactive bladder (Chronic) Cerebrovascular disease (Chronic) Stroke (Chronic) HTN (hypertension) (Chronic) Allergies chocolate flavor Adverse Reaction (Unknown, Verified 07/30/17 05:32) Other Pork/Porcine Containing Products Adverse Reaction (Unknown, Verified 07/30/17 05 :32) Other atorvastatin [From Lipitor] Adverse Reaction (Verified 07/30/17 05:35) Other oxybutynin Adverse Reaction (Verified 07/30/17 05:35) Other Home Medications: Ambulatory Orders Medication Instructions Recorded Aspirin [Aspirin, Baby] 81 mg PO DAILY@0800 06/12/17 Cholecalciferol (Vitamin D3) 5,000 unit PO DAILY 06/12/17 [Vitamin D3] Multivitamins,Therapeutic 1 tablet PO DAILY 06/12/17 [Multivitamin] Cyanocobalamin (Vitamin B-12) 3,000 mcg PO DAILY 07/30/17 [Vitamin B-12] Multivit-Min/Folic Acid/Biotin 1 each PO DAILY 07/30/17 [Hair, Skin and Nails Caplet] [place]-3/Dha/Epa/Fish Oil [Fish Oil 1,200 mg PO DAILY 07/30/17 [place]-3 EC 1,200 mg] Vitamin E (Dl,Tocopheryl Acet) 400 units PO DAILY 07/30/17 [Vitamin E] Amlodipine [Norvasc] 5 mg PO DAILY 08/04/17 Docusate Sodium [Colace] 100 mg PO BID PRN PRN capsule 08/04/17 Heparin Injection 5,000 units SC Q8 08/04/17 Lisinopril [Zestril] 20 mg PO DAILY 08/04/17 Magnesium Hydroxide [Milk Of 30 ml PO DAILY PRN PRN udc 08/04/17 Magnesia] Surgical History: total hip arthroplasty - Right hip, hemiarthroplasty., - - Tongue resection. Psychiatric History: No pertinent psych hx Lives: Spouse/ Significant Other Smoking Status: Never smoker Tobacco Use: Non-smoker Alcohol: None Drugs: None - *Family History Maternal History Items: No pertinent history Paternal History Items: No pertinent history Review of Systems Constitutional: Denies: Chills, Fever, Weight Change HEENT: Denies: Head Aches, Sinus Congestion, Sinus Drainage Cardiovascular: Denies: Chest Pain, Palpitations Respiratory: Denies: Cough, Shortness of breath at rest, Sputum production Gastrointestinal: Denies: Abdominal Pain, Nausea, Vomiting Genitourinary: Denies: Dysuria Musculoskeletal: Denies: Joint Pain, Joint Tenderness Skin: Denies: Rash, Wounds Neurological: Denies: Numbness, Tingling, Focal weakness Psychiatric: Denies: Anxiety, Depression, Homicidal Ideations, Suicidal Ideations Hematologic/ Lymphatic: Denies: Easy Bruising, Easy Bleeding - Physical Exam General: Alert, Oriented x3, Cooperative HEENT: Atraumatic, PERRLA, EOMI, Normocephalic Neck: Supple, No JVD, Negative Carotid Bruits Lungs: Clear to auscultation, Normal air movement Cardiovascular: Regular rate, No murmurs Abdomen: Bowel Sounds Present, Soft, Non Tender Extremities: No edema, Capillary Refill Less than 3 Seconds Skin: No rashes, No breakdown Musculoskeletal: No Tenderness to Palpation of Joints or Extremities Neurological: Cranial nerves II-XII grossly intact Psych/Mental Status: Normal Affect, Appropriate Vital Signs Temp Pulse Resp BP Pulse Ox 97.7 F L 69 18 127/72 H 97 08/28/17 16:00 08/28/17 16:00 08/28/17 16:00 08/28/17 16:00 08/28/17 16:00 Oxygen Delivery Method Room Air Weight: 93.8 kg Body Mass Index (BMI) 24.6 Finger Stick Blood Glucose 168 Intake and Output for Last 24 Hours 08/26/17 08/27/17 08/28/17 23:59 23:59 23:59 Intake Total 1440 / 1440 1680 / 1680 1680 / 1680 Balance 1440 / 1440 1680 / 1680 1680 / 1680 Assessment/Plan 77 year old male with below past medical history significant for recent stroke, left hemiparesis, hospitalized for encephalopathy, stroke ruled out, complicated by moderate cervical canal stenosis, possible progression of vascular dementia, admitted to TCU for rehabilitation, strengthening, prior to discharge home with spouse. * Debility - PT/OT. * Dysphagia - ST. * Pain - Tylenol 1000MG Q8H PRN mild pain. * Bowel - Miralax 17MG daily, Senna/colace 1 tablet BID, Dulcolax 10MG PO daily PRN. * DVT prophylaxis - Lovenox 40MG SC daily. * Stroke with left hemiparesis - Aspirin 81MG daily. * Vitamin B12 deficiency - B12 1000MCG daily. * Nutrition - Glucerna 120ML 4x/day, MVI daily. * Hypertension - Lisinopril 20MG daily, Amlodipine 5MG daily. * Skin irritation - Calmoseptine TID buttocks. * Hyperlipidemia - Statins intolerable, Fish Oil 1200MG daily. * Vitamin E deficiency - Vitamin E 400IU daily. * Vascular dementia - Tolerating Galantamine 4MG twice daily, and his cognition appears to be mildly improved.
[2017-08-29] MEDS: Senna/Docusate Sodium 1 Tablet PO ×2 (04:27→16:51)
[2017-08-29] MEDS: Enoxaparin 40 MG/0.4 ML Syringe SC (04:27)
[2017-08-29] MEDS: Lisinopril 20 MG Tablet PO (04:27)
[2017-08-29] MEDS: Polyethylene Glycol 3350 17 GM PACKET PO (04:27)
[2017-08-29] MEDS: Vitamin E 400 UNITS Capsule PO (04:28)
[2017-08-29] MEDS: Menthol/Lanolin/Calamine/Znox 113 GM Tube 1 APPLIC TOPICAL ×3 (04:28→19:53)
[2017-08-29] MEDS: amLODIPine 5 MG Tablet PO (04:28)
[2017-08-29] MEDS: Glucerna Shake 120 ML LIQUID PO ×4 (04:30→19:52)
[2017-08-29] MEDS: Galantamine Hydrobromide 4 MG Tablet PO ×2 (08:46→16:51)
[2017-08-29] MEDS: Multivitamins,Therapeutic Tablet 1 TABLET PO (08:46)
[2017-08-29] MEDS: Cyanocobalamin 500 MCG Tablet 1000 MCG PO (08:46)
[2017-08-29] MEDS: Aspirin 81 MG TAB.CHEW PO (08:46)
[2017-08-29] MEDS: Omega-3 Acid Ethyl Esters 1 GM Capsule PO (08:46)
--- NOTE | 2017-08-29 10:26 | MDS.RN ---
Information for the mds was obtained from review of the clinical record, interview of resident, staff, and direct observation of resident's care.
--- NOTE | 2017-08-29 13:27 | CASEMGMT ---
Brief interview for mental status (BIMS) and resident mood interview (PHQ-9) completed on this day. BIMS score 13/15. PHQ-9 score
--- NOTE | 2017-08-29 13:27 | CASEMGMT ---
Social Work Spoke with resident and resident spouse. This manager social communicating that discharge date has been set for 09/02/17. Resident and resident spouse are agreeable to discharge date. Resident plans to discharge home with spouse. This manager social communicating that physical, occupational, and speech therapy are recommending for resident to have home health services within the home. Resident agreeable to recommendation and also requesting for a home health aide to be set up. Resident requesting for home health services to be set up through [facility] ([facility] Resident reporting to have all needed durable medical equipment already set up within the home. Resident spouse plans to provide transportation home for resident. Support given. Telephone call to [facility], Lisbeth. This manager social making referral for physical, occupational, and speech therapy as well as a home health aide. Order to be completed. Proposed discharge date: 09/02/17 PLAN: Discharge home with spouse and home health services. Bibi LOCKHART, GREY INSPECTOR
[2017-08-29 15:37] VITALS: BP 136/71; PULSE 61; RESP 16; TEMP 36.4; O2SAT 94
--- NOTE | 2017-08-29 22:27 | PCM.DC ---
- Discharge Diagnoses Current Active Problems: Current Active and Chronic Problems (Last Updated 06/12/17 @ 13:43 by Lobo Cheng DO) Vascular dementia (Chronic) Cervical spinal stenosis (Chronic) Left hemiparesis (Chronic) Tongue cancer (Chronic) Obstructive sleep apnea (Chronic) Hyperlipidemia (Chronic) Overactive bladder (Chronic) You will use the following diet at home:: No restrictions, Regular Your food should be the consistency of: Regular Your liquids should be the consistency of: Regular/Thin Discharge Activity: Return to Normal Activity, May Shower, Use Walker May resume sexual activity in: No Restrictions Weight Bearing Status: Weight bearing as tolerated Call your doctor if you observe: Fever of 101 or Higher, Inability to urinate, Inability to have a bowel movement, Shortness of breath, Chest pain, Uncontrolled pain Allergies/Adverse Reactions: Allergies chocolate flavor Adverse Reaction (Unknown, Verified 07/30/17 05:32) Other Pork/Porcine Containing Products Adverse Reaction (Unknown, Verified 07/30/17 05:32) Other atorvastatin [From Lipitor] Adverse Reaction (Verified 07/30/17 05:35) Other oxybutynin Adverse Reaction (Verified 07/30/17 05:35) Other Medications to take at Discharge Aspirin [Aspirin, Baby] 81 mg PO DAILY@0800 06/12/17 Cholecalciferol (Vitamin D3) [Vitamin D3] 5,000 unit PO DAILY 06/12/17 Multivitamins,Therapeutic [Multivitamin] 1 tablet PO DAILY 06/12/17 Cyanocobalamin (Vitamin B-12) [Vitamin B-12] 3,000 mcg PO DAILY 07/30/17 Multivit-Min/Folic Acid/Biotin [Hair, Skin and Nails Caplet] 1 each PO DAILY 07/30/17 [place]-3/Dha/Epa/Fish Oil [Fish Oil [place]-3 EC 1,200 mg] 1,200 mg PO DAILY 07/30/17 Vitamin E (Dl,Tocopheryl Acet) [Vitamin E] 400 units PO DAILY 07/30/17 Acetaminophen [Tylenol] 1,000 mg PO Q8H PRN PRN tablet 08/29/17 Amlodipine [Norvasc] 5 mg PO DAILY #30 tab 08/29/17 Cyanocobalamin [Vitamin B12] 1,000 mcg PO DAILY@0800 tablet 08/29/17 Galantamine Hbr [Razadyne] 4 mg PO BIDCM #60 tab 08/29/17 Lisinopril [Zestril] 20 mg PO DAILY #30 tab 08/29/17 Menthol/Lanolin/Calamine/Znox [Calmoseptine Ointment] 1 applic TOPICAL TID tube 08/29/17 The following prescriptions were given: Amlodipine [Norvasc] 5 mg PO DAILY #30 tab Lisinopril [Zestril] 20 mg PO DAILY #30 tab Galantamine Hbr [Razadyne] 4 mg PO BIDCM #60 tab Primary Care Physician: Marcela Choi MD [Primary Care Provider] - Please follow up with your Primary Care Physician in: 1 week. Please Follow Up With: Belinda Quezada NP-C When: [phone] Proposed Discharge Date: 09/02/17
--- NOTE | 2017-08-29 22:30 | DCINST_ITS ---
- Discharge Diagnoses Current Active Problems: Current Active and Chronic Problems (Last Updated 06/12/17 @ 13:43 by Lobo Cheng DO) Vascular dementia (Chronic) Cervical spinal stenosis (Chronic) Left hemiparesis (Chronic) Tongue cancer (Chronic) Obstructive sleep apnea (Chronic) Hyperlipidemia (Chronic) Overactive bladder (Chronic) You will use the following diet at home:: No restrictions, Regular Your food should be the consistency of: Regular Your liquids should be the consistency of: Regular/Thin Discharge Activity: Return to Normal Activity, May Shower, Use Walker May resume sexual activity in: No Restrictions Weight Bearing Status: Weight bearing as tolerated Call your doctor if you observe: Fever of 101 or Higher, Inability to urinate, Inability to have a bowel movement, Shortness of breath, Chest pain, Uncontrolled pain Allergies/Adverse Reactions: Allergies chocolate flavor Adverse Reaction (Unknown, Verified 07/30/17 05:32) Other Pork/Porcine Containing Products Adverse Reaction (Unknown, Verified 07/30/17 05 :32) Other atorvastatin [From Lipitor] Adverse Reaction (Verified 07/30/17 05:35) Other oxybutynin Adverse Reaction (Verified 07/30/17 05:35) Other Medications to take at Discharge Aspirin [Aspirin, Baby] 81 mg PO DAILY@0800 06/12/17 Cholecalciferol (Vitamin D3) [Vitamin D3] 5,000 unit PO DAILY 06/12/17 Multivitamins,Therapeutic [Multivitamin] 1 tablet PO DAILY 06/12/17 Cyanocobalamin (Vitamin B-12) [Vitamin B-12] 3,000 mcg PO DAILY 07/30/17 Multivit-Min/Folic Acid/Biotin [Hair, Skin and Nails Caplet] 1 each PO DAILY 10/11 [place]-3/Dha/Epa/Fish Oil [Fish Oil [place]-3 EC 1,200 mg] 1,200 mg PO DAILY Vitamin E (Dl,Tocopheryl Acet) [Vitamin E] 400 units PO DAILY 07/30/17 Acetaminophen [Tylenol] 1,000 mg PO Q8H PRN PRN tablet 08/29/17 Amlodipine [Norvasc] 5 mg PO DAILY #30 tab 08/29/17 Cyanocobalamin [Vitamin B12] 1,000 mcg PO DAILY@0800 tablet 08/29/17 Galantamine Hbr [Razadyne] 4 mg PO BIDCM #60 tab 08/29/17 Lisinopril [Zestril] 20 mg PO DAILY #30 tab 08/29/17 Menthol/Lanolin/Calamine/Znox [Calmoseptine Ointment] 1 applic TOPICAL TID tube 08/29/17 The following prescriptions were given: Amlodipine [Norvasc] 5 mg PO DAILY #30 tab Lisinopril [Zestril] 20 mg PO DAILY #30 tab Galantamine Hbr [Razadyne] 4 mg PO BIDCM #60 tab Primary Care Physician: Marcela Choi MD [Primary Care Provider] - Please follow up with your Primary Care Physician in: 1 week. Please Follow Up With: Belinda Quezada NP-C When: [phone] Proposed Discharge Date: 09/02/17
--- NOTE | 2017-08-29 22:30 | PCM.DC.SUM ---
Discharge Date and Diagnosis Date of Admission: 08/04/17 Date of Discharge: 09/02/17 - Secondary Discharge Diagnosis Chronic Problems (Last Updated 06/12/17 @ 13:43 by Lobo Cheng DO) Vascular dementia (Chronic) Cervical spinal stenosis (Chronic) Left hemiparesis (Chronic) Tongue cancer (Chronic) Obstructive sleep apnea (Chronic) Hyperlipidemia (Chronic) Overactive bladder (Chronic) Cerebrovascular disease (Chronic) Stroke (Chronic) HTN (hypertension) (Chronic) Hospital Course and Treatment Imaging Results: 08/04/17 14:13 Diet: Cardiac/Low Cholesterol Food consistency:: Mechanical Soft/Ground Liquid Consistency:: Regular/Thin Dietary Modifications:: Mechanical Soft Diet Is pt able to select menu?: Yes Diet Comments: supervision by staff/family; meds w/Applesauce, check pocketing Operations: None Procedures: None Summary of Care Provided: The patient is a 77 year old Male with below past medical history significant for recent stroke, left hemiparesis, hospitalized for encephalopathy, stroke ruled out, complicated by moderate cervical canal stenosis, possible progression of vascular dementia, admitted to TCU for rehabilitation, strengthening, prior to discharge home with spouse. On TCU he was started on low dose Galantamine for treatment of vascular dementia, he did well with it, consider titrating up as outpatient or follow up with Neurology. [] Discharge home with spouse and Home Health services. Home health ordered. Discharge Diet: No Restrictions Discharge Activity: Return to Normal Activity, May Shower, Use Walker May resume sexual activity in: No Restrictions Weight Bearing Status: Weight bearing as tolerated Call your doctor if you observe: Fever of 101 or Higher, Inability to urinate, Inability to have a bowel movement, Shortness of breath, Chest pain, Uncontrolled pain Home Medications: Medications to take at Discharge Aspirin [Aspirin, Baby] 81 mg PO DAILY@0800 06/12/17 Cholecalciferol (Vitamin D3) [Vitamin D3] 5,000 unit PO DAILY 06/12/17 Multivitamins,Therapeutic [Multivitamin] 1 tablet PO DAILY 06/12/17 Cyanocobalamin (Vitamin B-12) [Vitamin B-12] 3,000 mcg PO DAILY 07/30/17 Multivit-Min/Folic Acid/Biotin [Hair, Skin and Nails Caplet] 1 each PO DAILY 07/30/17 [place]-3/Dha/Epa/Fish Oil [Fish Oil [place]-3 EC 1,200 mg] 1,200 mg PO DAILY 07/30/17 Vitamin E (Dl,Tocopheryl Acet) [Vitamin E] 400 units PO DAILY 07/30/17 Acetaminophen [Tylenol] 1,000 mg PO Q8H PRN PRN tablet 08/29/17 Amlodipine [Norvasc] 5 mg PO DAILY #30 tab 08/29/17 Cyanocobalamin [Vitamin B12] 1,000 mcg PO DAILY@0800 tablet 08/29/17 Galantamine Hbr [Razadyne] 4 mg PO BIDCM #60 tab 08/29/17 Lisinopril [Zestril] 20 mg PO DAILY #30 tab 08/29/17 Menthol/Lanolin/Calamine/Znox [Calmoseptine Ointment] 1 applic TOPICAL TID tube 08/29/17 Following Prescrptions Were Given to Patient: Amlodipine [Norvasc] 5 mg PO DAILY #30 tab Lisinopril [Zestril] 20 mg PO DAILY #30 tab Galantamine Hbr [Razadyne] 4 mg PO BIDCM #60 tab Primary Care Physician: Marcela Choi MD [Primary Care Provider] - Please follow up with your Primary Care Physician in: 1 week. Please Follow Up With: Belinda Quezada NP-C When: [phone] Disposition: Home with Home Health Minutes spent on discharge:: 35 Patient Condition:: Stable Meaningful Use Info Meaningful Use Diagnoses (Choose all that apply): None applicable
--- NOTE | 2017-08-29 22:33 | HHNOTE_ITS ---
Home Health Note - Plan Overview of reason of hospitalization: The patient is a 77 year old Male with below past medical history significant for recent stroke, left hemiparesis, hospitalized for encephalopathy, stroke ruled out, complicated by moderate cervical canal stenosis, possible progression of vascular dementia, admitted to TCU for rehabilitation, strengthening, prior to discharge home with spouse. On TCU he was started on low dose Galantamine for treatment of vascular dementia , he did well with it, consider titrating up as outpatient or follow up with Neurology. [] Discharge home with spouse and Home Health services. Home health ordered Problems: Patient was seen for (Last Updated 06/12/17 @ 13:43 by Lobo Cheng DO) Vascular dementia (Chronic) Cervical spinal stenosis (Chronic) Left hemiparesis (Chronic) Tongue cancer (Chronic) Obstructive sleep apnea (Chronic) Hyperlipidemia (Chronic) Overactive bladder (Chronic) Complete List of Medical Problems (Last Updated 06/12/17 @ 13:43 by Lobo Cheng DO) Vascular dementia (Chronic) Cervical spinal stenosis (Chronic) Left hemiparesis (Chronic) Tongue cancer (Chronic) Obstructive sleep apnea (Chronic) Hyperlipidemia (Chronic) Overactive bladder (Chronic) Mental status alteration (Acute) Cerebrovascular disease (Chronic) Generalized weakness (Acute) Stroke (Chronic) HTN (hypertension) (Chronic) - Requirements and Reasons Disciplines Needed/Ordered: Physical Therapy, Speech Therapy Reason for Disciplines: Gait Training, Stair Training, Fall Prevention, Home Safety/Equipment Instruction, Balance and/or Posture Training, Transfer Training , Swallowing Exercise/Education, Improvement in Communication Related To: Limited/Poor Endurance, Shortness of Breath with Activity, Physical Impairments, Unsteady Gait/Balance, Fall Risk Patient is unable to leave the home: Without Aid of Supportive Devices (crutches , cane, wheelchair, walker), Without the assistance of another person - Additional Disciplines Additional Disciplines Needed/Ordered: Occupational Therapy, Home Health Aide
--- NOTE | 2017-08-29 22:33 | DS.PCM_ITS ---
Discharge Date and Diagnosis Date of Admission: 08/04/17 Date of Discharge: 09/02/17 - Secondary Discharge Diagnosis Chronic Problems (Last Updated 06/12/17 @ 13:43 by Lobo Cheng DO) Vascular dementia (Chronic) Cervical spinal stenosis (Chronic) Left hemiparesis (Chronic) Tongue cancer (Chronic) Obstructive sleep apnea (Chronic) Hyperlipidemia (Chronic) Overactive bladder (Chronic) Cerebrovascular disease (Chronic) Stroke (Chronic) HTN (hypertension) (Chronic) Hospital Course and Treatment Imaging Results: 08/04/17 14:13 Diet: Cardiac/Low Cholesterol Food consistency:: Mechanical Soft/Ground Liquid Consistency:: Regular/Thin Dietary Modifications:: Mechanical Soft Diet Is pt able to select menu?: Yes Diet Comments: supervision by staff/family; meds w/Applesauce, check pocketing Operations: None Procedures: None Summary of Care Provided: The patient is a 77 year old Male with below past medical history significant for recent stroke, left hemiparesis, hospitalized for encephalopathy, stroke ruled out, complicated by moderate cervical canal stenosis, possible progression of vascular dementia, admitted to TCU for rehabilitation, strengthening, prior to discharge home with spouse. On TCU he was started on low dose Galantamine for treatment of vascular dementia , he did well with it, consider titrating up as outpatient or follow up with Neurology. [] Discharge home with spouse and Home Health services. Home health ordered. Discharge Diet: No Restrictions Discharge Activity: Return to Normal Activity, May Shower, Use Walker May resume sexual activity in: No Restrictions Weight Bearing Status: Weight bearing as tolerated Call your doctor if you observe: Fever of 101 or Higher, Inability to urinate, Inability to have a bowel movement, Shortness of breath, Chest pain, Uncontrolled pain Home Medications: Medications to take at Discharge Aspirin [Aspirin, Baby] 81 mg PO DAILY@0800 06/12/17 Cholecalciferol (Vitamin D3) [Vitamin D3] 5,000 unit PO DAILY 06/12/17 Multivitamins,Therapeutic [Multivitamin] 1 tablet PO DAILY 06/12/17 Cyanocobalamin (Vitamin B-12) [Vitamin B-12] 3,000 mcg PO DAILY 07/30/17 Multivit-Min/Folic Acid/Biotin [Hair, Skin and Nails Caplet] 1 each PO DAILY 10/11 [place]ann-3/Dha/Epa/Fish Oil [Fish Oil Louann-3 EC 1,200 mg] 1,200 mg PO DAILY Vitamin E (Dl,Tocopheryl Acet) [Vitamin E] 400 units PO DAILY 07/30/17 Acetaminophen [Tylenol] 1,000 mg PO Q8H PRN PRN tablet 08/29/17 Amlodipine [Norvasc] 5 mg PO DAILY #30 tab 08/29/17 Cyanocobalamin [Vitamin B12] 1,000 mcg PO DAILY@0800 tablet 08/29/17 Galantamine Hbr [Razadyne] 4 mg PO BIDCM #60 tab 08/29/17 Lisinopril [Zestril] 20 mg PO DAILY #30 tab 08/29/17 Menthol/Lanolin/Calamine/Znox [Calmoseptine Ointment] 1 applic TOPICAL TID tube 08/29/17 Following Prescrptions Were Given to Patient: Amlodipine [Norvasc] 5 mg PO DAILY #30 tab Lisinopril [Zestril] 20 mg PO DAILY #30 tab Galantamine Hbr [Razadyne] 4 mg PO BIDCM #60 tab Primary Care Physician: Marcela Choi MD [Primary Care Provider] - Please follow up with your Primary Care Physician in: 1 week. Please Follow Up With: Belinda Quezada NP-C When: [phone] Disposition: Home with Home Health Minutes spent on discharge:: 35 Patient Condition:: Stable Meaningful Use Info Meaningful Use Diagnoses (Choose all that apply): None applicable
[2017-08-30] MEDS: Lisinopril 20 MG Tablet PO (04:47)
[2017-08-30] MEDS: amLODIPine 5 MG Tablet PO (04:48)
[2017-08-30] MEDS: Enoxaparin 40 MG/0.4 ML Syringe SC (04:48)
[2017-08-30] MEDS: Polyethylene Glycol 3350 17 GM PACKET PO (04:48)
[2017-08-30] MEDS: Senna/Docusate Sodium 1 Tablet PO ×2 (04:48→17:22)
[2017-08-30] MEDS: Vitamin E 400 UNITS Capsule PO (04:49)
[2017-08-30] MEDS: Menthol/Lanolin/Calamine/Znox 113 GM Tube 1 APPLIC TOPICAL ×3 (04:49→20:44)
[2017-08-30] MEDS: Aspirin 81 MG TAB.CHEW PO (08:20)
[2017-08-30] MEDS: Galantamine Hydrobromide 4 MG Tablet PO ×2 (08:21→17:22)
[2017-08-30] MEDS: Multivitamins,Therapeutic Tablet 1 TABLET PO (08:21)
[2017-08-30] MEDS: Cyanocobalamin 500 MCG Tablet 1000 MCG PO (08:21)
[2017-08-30] MEDS: Omega-3 Acid Ethyl Esters 1 GM Capsule PO (08:21)
[2017-08-30] MEDS: Glucerna Shake 120 ML LIQUID PO (11:28)
[2017-08-30 16:00] VITALS: BP 126/68; PULSE 63; RESP 20; TEMP 36.7; O2SAT 97
[2017-08-31] MEDS: amLODIPine 5 MG Tablet PO (04:55)
[2017-08-31] MEDS: Lisinopril 20 MG Tablet PO (04:55)
[2017-08-31] MEDS: Vitamin E 400 UNITS Capsule PO (04:55)
[2017-08-31] MEDS: Enoxaparin 40 MG/0.4 ML Syringe SC (04:55)
[2017-08-31] MEDS: Senna/Docusate Sodium 1 Tablet PO ×2 (04:55→17:45)
[2017-08-31] MEDS: Polyethylene Glycol 3350 17 GM PACKET PO (04:55)
[2017-08-31] MEDS: Menthol/Lanolin/Calamine/Znox 113 GM Tube 1 APPLIC TOPICAL ×3 (05:00→22:00)
[2017-08-31 05:14] VITALS: PULSE 75
[2017-08-31] MEDS: Cyanocobalamin 500 MCG Tablet 1000 MCG PO (09:12)
[2017-08-31] MEDS: Galantamine Hydrobromide 4 MG Tablet PO ×2 (09:13→17:45)
[2017-08-31] MEDS: Multivitamins,Therapeutic Tablet 1 TABLET PO (09:13)
[2017-08-31] MEDS: Aspirin 81 MG TAB.CHEW PO (09:13)
[2017-08-31] MEDS: Omega-3 Acid Ethyl Esters 1 GM Capsule PO (09:13)
[2017-08-31 16:00] VITALS: BP 136/97; PULSE 59; RESP 18; TEMP 36.7; O2SAT 95
[2017-08-31] MEDS: Acetaminophen 500 MG Tablet 1000 MG PO (17:50)
[2017-09-01] MEDS: Polyethylene Glycol 3350 17 GM PACKET PO (05:45)
[2017-09-01] MEDS: Vitamin E 400 UNITS Capsule PO (05:45)
[2017-09-01] MEDS: Lisinopril 20 MG Tablet PO (05:45)
[2017-09-01] MEDS: Enoxaparin 40 MG/0.4 ML Syringe SC (05:45)
[2017-09-01] MEDS: Senna/Docusate Sodium 1 Tablet PO ×2 (05:45→16:49)
[2017-09-01] MEDS: amLODIPine 5 MG Tablet PO (05:45)
[2017-09-01] MEDS: Menthol/Lanolin/Calamine/Znox 113 GM Tube 1 APPLIC TOPICAL ×3 (05:46→20:14)
[2017-09-01] MEDS: Galantamine Hydrobromide 4 MG Tablet PO ×2 (09:18→16:49)
[2017-09-01] MEDS: Aspirin 81 MG TAB.CHEW PO (09:18)
[2017-09-01] MEDS: Omega-3 Acid Ethyl Esters 1 GM Capsule PO (09:18)
[2017-09-01] MEDS: Cyanocobalamin 500 MCG Tablet 1000 MCG PO (09:18)
[2017-09-01] MEDS: Multivitamins,Therapeutic Tablet 1 TABLET PO (09:18)
[2017-09-01 09:36] VITALS: PULSE 67; RESP 18; O2SAT 97
[2017-09-01 16:00] VITALS: BP 139/65; PULSE 65; RESP 20; TEMP 36.4; O2SAT 96
[2017-09-02] MEDS: Enoxaparin 40 MG/0.4 ML Syringe SC (04:34)
[2017-09-02] MEDS: Menthol/Lanolin/Calamine/Znox 113 GM Tube 1 APPLIC TOPICAL (04:34)
[2017-09-02] MEDS: amLODIPine 5 MG Tablet PO (04:35)
[2017-09-02] MEDS: Lisinopril 20 MG Tablet PO (04:35)
[2017-09-02] MEDS: Vitamin E 400 UNITS Capsule PO (04:35)
[2017-09-02] MEDS: Senna/Docusate Sodium 1 Tablet PO (04:35)
[2017-09-02] MEDS: Polyethylene Glycol 3350 17 GM PACKET PO (04:35)
[2017-09-02 04:38] VITALS: PULSE 64; O2SAT 97
[2017-09-02] MEDS: Acetaminophen 500 MG Tablet 1000 MG PO (08:39)
[2017-09-02] MEDS: Aspirin 81 MG TAB.CHEW PO (08:41)
[2017-09-02] MEDS: Cyanocobalamin 500 MCG Tablet 1000 MCG PO (08:41)
[2017-09-02] MEDS: Galantamine Hydrobromide 4 MG Tablet PO (08:41)
[2017-09-02] MEDS: Multivitamins,Therapeutic Tablet 1 TABLET PO (08:41)
[2017-09-02] MEDS: Omega-3 Acid Ethyl Esters 1 GM Capsule PO (08:42)
[2017-09-02 15:25] VITALS: BP 130/72; PULSE 65; RESP 16; TEMP 36.4; O2SAT 95
--- NOTE | 2017-09-14 16:01 | MDS.RN ---
Information for the mds was obtained from review of the clinical record, interview of resident, staff, and direct observation of resident's care.
== END 2017-09-02 16:20 | disposition home health service (06) | DRG 71 ==
PROVIDERS: Admitting Provider Family Medicine Geriatric Medicine; Family Provider Family Medicine; PCP Family Medicine; Visit Provider Family Medicine Geriatric Medicine
DX: G93.40 Encephalopathy, unspecified (principal); I69.354 Hemiplegia and hemiparesis following cerebral infarction affecting left non-dominant side; F01.50 Vascular dementia, unspecified severity, without behavioral disturbance, psychotic disturbance, mood disturbance, and anxiety; M48.02 Spinal stenosis, cervical region; Z85.810 Personal history of malignant neoplasm of tongue; G47.33 Obstructive sleep apnea (adult) (pediatric); E78.5 Hyperlipidemia, unspecified; N32.81 Overactive bladder; I10 Essential (primary) hypertension; Z79.899 Other long term (current) drug therapy; Z79.82 Long term (current) use of aspirin
CPT/HCPCS: 36415; 80048; 85025; 92507; 92523; 92526; 92610; 93880; 97110; 97116; 97162; 97166; 97530; 97535; 97802

== ENCOUNTER 2017-10-14 18:36 | Emergency (ER) | payer BC, SELFPAY ==
[2017-10-14 18:39] VITALS: BP 144/82; PULSE 69; RESP 18; TEMP 36.2; O2SAT 97; BMI 27.3
--- NOTE | 2017-10-14 19:04 | CT_ITS ---
STUDY: CT BRAIN WITHOUT CONTRAST REASON FOR EXAM: Male, 77 years old. Headache. History of stroke and dementia. RADIATION DOSAGE (If Supplied By Facility): CTDIvol = ( 44.99 ) mGy, DLP = ( 745.49 ) mGycm TECHNIQUE: Transaxial CT imaging of the brain was performed without administration of intravenous contrast material. Individualized dose optimization techniques were used for this CT. COMPARISON: Prior brain CT exam of July 30, 2017 FINDINGS: Normal soft tissue structures. Normal calvarium. There is moderate cerebral atrophy with widening of the extra-axial spaces and ventricular dilatation. There are areas of decreased attenuation within the white matter tracts of the supratentorial brain, consistent with microvascular disease changes. Multiple stable old lacunar infarcts of the bilateral basal ganglia, kuhn radiata and right ventral thalamus. Normal brainstem. There is moderate cerebellar atrophy. Carotid and vertebral artery calcifications. There is no intracranial hemorrhage. There are no findings of an acute ischemic infarction. Normal visualized paranasal sinuses. CT/Brain/Head without Contrast IMPRESSION: Negative for intracranial hemorrhage, hematoma or mass density. Stable moderate cerebral and cerebellar atrophy. Extensive chronic small vessel changes and numerous old lacunar infarct in basal ganglia, right thalamus and kuhn radiata. Carotid and vertebral artery calcifications. Electronically Signed: Masha Washington MD at 20:17 EDT , Service support ,
[2017-10-14] MEDS: Ketorolac 30 MG/ML Syringe 10 MG IV (20:08)
[2017-10-14 21:03] VITALS: BP 163/71; PULSE 61; RESP 14; O2SAT 97
--- NOTE | 2017-10-14 21:41 | ED.DCSUM_ITS ---
- ER Visit Summary Date of Service: 10/14/17 Chief Complaint: headache History of Present Illness: The patient is a 77 M with history of stroke migraine headaches who presents for 1-1/2 hours of headache. Patient has a history of migraines in the right temporal region, and this is where his headache currently is. Normally it will resolve with Tylenol. Patient's gave him 1 dose of Tylenol the headache did not improve. Because of his stroke she states he is not supposed to take anything other than a single dose of Tylenol and thus they came to the emergency department for evaluation. Headache is continuous in the right temporal region, currently an 8 out of 10. No fever, nausea or vomiting, new numbness or weakness in the arms or legs, chest pain, shortness of breath or other complaints other than mild right third vision that is typical with his headaches. He has a history of stroke in 2016 and has residual left-sided weakness. No recent trauma or injury. Patient is on a baby aspirin daily but no blood thinners. Physical Examination: Vital signs: afebrile, hemodynamically stable, no hypoxia on room air General: well nourished, well developed, in no distress sitting with the lights on Skin: warm, dry, no rash, no pallor HEENT: normocephalic and atraumatic no temporal artery tenderness, no vesicular rash; PERRL, EOMI, no gross visual deficits, moist mucous membranes Cardiovascular: regular rate and rhythm with systolic murmurs, no peripheral edema, 2+ pulses all distal extremities Respiratory: No increased work of breathing, lungs are clear to auscultation bilaterally, no rales, rhonchi or wheezing Abdominal: Abdomen is soft, nontender with normoactive bowel sounds, no guarding or rebound, no masses MSK: Moves all extremities, no deformities, normal strength Neuro: Awake and alert, oriented ?4. chronic left-sided facial droop; sensation and motor function intact and symmetric Test Results: [] Emergency Department Course and Treatment: Given patient's neurologic history and 's concern for his persistent headache that did not resolve as usual after dose of Tylenol, and head CT was performed that showed no intracranial hemorrhage. Patient was given 10 mg toradol IV fluids for his headache. He had initial improvement but then the headache began to return. He is well- appearing and this is consistent with his normal headaches. We discussed concern for most migraine medications, as they may make the patient dizzy or sleepy, increasing his risk of falling given that he has got some chronic weakness and balance deficits. Because of this patient will be urged home and the will give him 2 extra strength Tylenol when the home. Patient is also not eaten today and was encouraged to have dinner prior to going to bed. They will return if any worsening of his condition or if his headache does not improve after Tylenol, rest and a meal. Treatment Plan: [] Disposition: Discharge home Impression: Migraine headache This note was generated with [employer] dictation software. It may contain incorrect words, spelling, and punctuation that were not noted in review of the chart prior to signing ED Disposition - Plan for ED Patient: Disposition: Home or Assisted Living Chief Complaint: Headache Instructions: ED Headache Migraine Referrals: Marcela Choi MD [Primary Care Provider] - 1-2 Days if not improving Additional Instructions: You may take 2 extra strength Tylenol when you get home for your headache. Please get plenty of rest. If you continue to have a severe headache or have any new symptoms, please return to the emergency department for another evaluation.
[2017-10-14 22:07] VITALS: BP 146/75; PULSE 68; RESP 14; O2SAT 92
== END 2017-10-14 22:11 | disposition home or self-care (01) ==
PROVIDERS: Emergency Provider Emergency Medicine; Family Provider Family Medicine; PCP Family Medicine
DX: G43.909 Migraine, unspecified, not intractable, without status migrainosus (principal); I69.354 Hemiplegia and hemiparesis following cerebral infarction affecting left non-dominant side; F03.90 Unspecified dementia, unspecified severity, without behavioral disturbance, psychotic disturbance, mood disturbance, and anxiety; Z79.82 Long term (current) use of aspirin; Z79.899 Other long term (current) drug therapy
CPT/HCPCS: 70450; 96361; 96374; 99284; J7030; J7040

== ENCOUNTER 2017-10-24 01:17 | Observation (INO) | payer BC, SELFPAY ==
[2017-10-24] VITALS (18 sets, daily range): BP systolic 129–163; BP diastolic 64–98; PULSE 56–72; RESP 12–20; TEMP 36.5–36.9; O2SAT 94–98; BMI 26.4; BMI 25.9; BMI 26.0
--- NOTE | 2017-10-24 01:23 | NURSING ---
CALLED FOR EKG PER RN REQUEST, PULLED OLD EKG'S FOR
--- NOTE | 2017-10-24 01:27 | EKG12_ITS ---
Test Reason : HX OF RECENT STROKE Blood Pressure : / mmHG Vent. Rate : 065 BPM Atrial Rate : 065 BPM P-R Int : 182 ms QRS Dur : 098 ms QT Int : 420 ms P-R-T Axes : 012 015 024 degrees QTc Int : 436 ms Normal sinus rhythm Normal ECG Confirmed by DAMIAN MCCORMACK ([id number]), photo editor MAXI PERALTA ([id number]) on 10/25/2017 9:37:55 AM Referred By: DR MARIE Confirmed By:DAMIAN MCCORMACK
--- NOTE | 2017-10-24 01:27 | RAD_ITS ---
STUDY: X-RAY CHEST REASON FOR EXAM: Male, 77 years old. Cough for 2 days. TECHNIQUE: Single AP portable view of the chest. COMPARISON: 07/30/2017. 07/14/2016. FINDINGS: There is chronic interstitial prominence in the lungs bilaterally. There is mild bilateral basilar atelectasis. There is no demonstrated acute pulmonary infiltrate. There is no demonstrated pleural abnormality. There is borderline cardiomegaly. Normal mediastinum and ann. Normal visualized pulmonary arteries. There is atherosclerotic calcification of the aortic arch with tortuosity. There are diffuse degenerative changes of the visualized thoracic spine. Normal visualized ribs, clavicles, and shoulders. There is no demonstrated abnormality of the visualized soft tissue structures of the upper abdomen. RAD/Chest 1 View IMPRESSION: Mild chronic interstitial changes. Borderline heart size. No evidence for acute cardiopulmonary pathology. Electronically Signed: Sarabjit Alberts MD at 2:42 EDT , Service support ,
--- NOTE | 2017-10-24 01:27 | CT_ITS ---
STUDY: CT BRAIN WITHOUT CONTRAST REASON FOR EXAM: Male, 77 years old. Headache with numbness and tingling in the right arm. RADIATION DOSAGE (If Supplied By Facility): CTDIvol = ( 44.99 ) mGy, DLP = ( 1592.22 ) mGycm TECHNIQUE: Transaxial CT imaging of the brain was performed without administration of intravenous contrast material. Individualized dose optimization techniques were used for this CT. COMPARISON: 10/14/2017. FINDINGS: Normal soft tissue structures. Normal calvarium. There is moderate cerebral atrophy with widening of the extra-axial spaces and ventricular dilatation. There are areas of decreased attenuation within the white matter tracts of the supratentorial brain, consistent with microvascular disease changes. There are old lacunar infarctions in the right thalamus and bilateral basal ganglia. Normal brainstem. There is moderate cerebellar atrophy. There is atherosclerotic calcification of the vertebral and cavernous carotid arteries. There is no intracranial hemorrhage. There are no findings of an acute ischemic infarction. There is mild mucoperiosteal thickening in bilateral maxillary, bilateral sphenoid, and right ethmoid sinuses, consistent with mild chronic disease. There is complete opacification of numerous left ethmoid air cells, not present on previous exam and consistent with overlying acute sinusitis. There is a small amount of fluid in a peripheral right mastoid air cell. CT/Brain/Head without Contrast IMPRESSION: Chronic involutional changes of the brain. No demonstrated acute intracranial process. Acute left ethmoid sinusitis, overlying chronic sinus disease. Mild right mastoiditis. Electronically Signed: Sarabjit Alberts MD at 3:18 EDT , Service support ,
[2017-10-24 01:36] LABS: Bedside Glucose 113 mg/dL (70-110)
[2017-10-24 01:40] LABS: Absolute Lymphocyte Count 1.79 X10^3/ul (0.83-4.51); Absolute Neutrophil Count 2.7 X10^3/uL (2.0-7.7); Basophil# 0.03 X10^3/uL; Basophil% 0.6 % (0-1); Eosinophil# 0.17 X10^3/uL; Eosinophils% 3.3 % (0-5); Hematocrit 39.1 % (40-54); Hemoglobin 12.9 g/dl (13.0-16.5); Lymphocyte # 1.79 X10^3/ul (4.0); Lymphocyte % 34.6 % (19-41); Mean Corpuscular Hgb 30.2 pg (27.0-32.0); Mean Corpuscular Volume 91.6 fL (80-94); Mean Platelet Vol. 9.6 fl (6.2-12.0); Monocyte% 9.7 % (0-10); Neutrophil # 2.68 X10^3/uL (2.7-7.7); Neutrophil % 51.6 % (47-70); Platelet Count 140 K/mm3 (150-450); RBC Distribution Width CV 13.5 % (11.6-14.6); RBC Distribution Width SD 44.6 fl (35.1-43.9); Red Blood Count 4.27 M/mm3 (4.6-6.2); White Blood Count 5.2 K/mm3 (4.4-11.0)
[2017-10-24] MEDS: 0.9% Normal Saline 1,000 ML 100 ML IV (01:41)
[2017-10-24 01:42] LABS: POSITIVE COUNT NO; POSITIVE DIFFERENTIAL NO; POSITIVE MORPHOLOGY NO
--- NOTE | 2017-10-24 01:43 | ED.VISSUMM ---
- ER Visit Summary Date of Service: 10/24/17 Chief Complaint: Weakness, right arm tingling History of Present Illness: The patient is a 77 M resents to the emergency department with increasing weakness. Patient has had upper respiratory illness over the past few days. He has had some mild nasal drainage and sore throat. He went to physical therapy today. He has known cervical stenosis and is scheduled to see neurosurgeon next week. He went through his therapy session without issue. When he got home, he began to have some increasing generalized weakness. He was more unsteady on his feet per normal. He was telling his that he was having increasing tingling down his entire right arm. It was not limited to just the hand. He has never really had symptoms like this before even with his documented cervical stenosis. states that he was just a lot more weak than usual. He has not had fever or chills. He has had scant cough. He denies any recent falls. He is also complaining of a mild headache, which was the same symptoms he had when he had his prior stroke. Physical Examination: Vital signs reviewed General: Well-nourished, well-developed Head: Normocephalic, atraumatic Eyes: Pupils equal and reactive, extraocular muscles intact Neck, supple, no lymphadenopathy Heart: Regular rate and rhythm Respiratory: No distress, clear bilaterally Abdomen: Soft, nontender, nondistended, no peritoneal signs Back: Nontender Extremities: Nontender, no edema, no cords Skin: Normal color no rash Neuro: Alert and oriented, paresthesia of the entire right arm, no weakness, normal reflexes, NIH is 1 Test Results: [] Emergency Department Course and Treatment: The patient has had some increasing weakness and scant cough. However, today, he began have paresthesias of the entire right arm. With his history of stroke, increasing weakness, paresthesia I was concerned for new neurologic symptoms. His NIH is only 1. He does not meet criteria for stroke team. Patient underwent screening labs which were relatively unremarkable. X-ray does not show focal infiltrate. CT head was obtained and does show chronic change, but no acute abnormalities. With the patient's new focal neurologic symptoms, I do feel that admission would be in his best interest for further neurologic workup. This may be all related to his cervical stenosis, but he has not had these symptoms with that and I would expect it to be more distal given the impingement at C6-C7.. Patient was discussed with the hospitalist. Treatment Plan: [] Disposition: Admission Impression: 1. Right arm paresthesias 2. Generalized weakness This note was generated with [employer] dictation software. It may contain incorrect words, spelling, and punctuation that were not noted in review of the chart prior to signing ED Disposition - Plan for ED Patient: Chief Complaint: Numb/Ting Referrals: Marcela Choi MD [Primary Care Provider] -
[2017-10-24 01:46] LABS: International Normalized Ratio 1.1; Partial Thromboplast Time 28.6 Seconds (24.1-36.2); Prothrombin Time (Protime)PT. 13.8 SECONDS (11.7-14.9)
[2017-10-24 01:59] LABS: Anion Gap 4 (5-15); BUN 21 mg/dL (7-18); BUN/Creat Ratio 25.3 RATIO (10-20); Calcium,Total 8.8 mg/dL (8.5-10.1); Chloride 103 mmol/L (98-107); Creatinine, Serum 0.83 mg/dL (0.70-1.30); EST Glomerular Filtration Rate 96 mL/min (>60); Est Glom Filt Rate - Afr Amer 116 mL/min (>60); Estimated Creatinine Clearance 92.96 ml/min; Glucose 111 mg/dL (74-106); Potassium 3.8 mmol/L (3.5-5.1); Sodium Level 135 mmol/L (136-145)
--- NOTE | 2017-10-24 03:29 | PCM.HP.STD ---
Problem List (1) Numbness and tingling of right arm Status: Acute (2) Vascular dementia Status: Chronic (3) Cervical spinal stenosis Status: Chronic (4) Left hemiparesis Status: Chronic (5) Tongue cancer Status: Chronic (6) Obstructive sleep apnea Status: Chronic (7) Hyperlipidemia Status: Chronic (8) Overactive bladder Status: Chronic (9) Cerebrovascular disease Status: Chronic (10) Generalized weakness Status: Acute (11) HTN (hypertension) Status: Chronic History of Present Illness Date of Admission: 10/24/17 Chief Complaint: right arm numbness and weakness The patient is a 77 year old male with a significant past medical history of stroke with residual left sided weakness presents to the ER with right arm numbness and tingling from hand to shoulder. This began at 5:00 this evening. He also has known cervical stenosis and is schedule to see a neurosurgeon next week to discuss options. Per his spouse the patient has more generalized weakness than usual. He has some URI symptoms as well but no fever. He does complain of a concurrent headache. He admits he was tired today after his physical therapy session. Past Medical History Past Medical History (Chronic Problems): Chronic Problems (Last Updated 06/12/17 @ 13:43 by Lobo Cheng DO) Vascular dementia (Chronic) Cervical spinal stenosis (Chronic) Left hemiparesis (Chronic) Tongue cancer (Chronic) Obstructive sleep apnea (Chronic) Hyperlipidemia (Chronic) Overactive bladder (Chronic) Cerebrovascular disease (Chronic) Stroke (Chronic) HTN (hypertension) (Chronic) Allergies chocolate flavor Adverse Reaction (Unknown, Verified 10/24/17 01:21) Other Pork/Porcine Containing Products Adverse Reaction (Unknown, Verified 10/24/17 01:21) Other atorvastatin [From Lipitor] Adverse Reaction (Verified 10/24/17 01:21) Other oxybutynin Adverse Reaction (Verified 10/24/17 01:21) Other Home Medications: Ambulatory Orders Medication Instructions Recorded Aspirin [Aspirin, Baby] 81 mg PO DAILY 06/12/17 Multivit-Min/Folic Acid/Biotin 1 each PO DAILY 07/30/17 [Hair, Skin and Nails Caplet] [place]-3/Dha/Epa/Fish Oil [Fish Oil 1,200 mg PO DAILY 07/30/17 [place]-3 EC 1,200 mg] Vitamin E (Dl,Tocopheryl Acet) 400 units PO DAILY 07/30/17 [Vitamin E] Acetaminophen [Tylenol] 1,000 mg PO Q8H PRN PRN tablet 08/29/17 Amlodipine [Norvasc] 5 mg PO DAILY #30 tab 08/29/17 Galantamine Hbr [Razadyne] 4 mg PO BIDCM #60 tab 08/29/17 Lisinopril [Zestril] 10 mg PO DAILY 10/14/17 Surgical History: total hip arthroplasty - Right hip, hemiarthroplasty., - - Tongue resection. Psychiatric History: No pertinent psych hx Smoking Status: Never smoker - *Family History Maternal History Items: No pertinent history Paternal History Items: No pertinent history Review of Systems Constitutional: Denies: Chills, Fever, Weight Change HEENT: Denies: Head Aches, Sinus Congestion, Sinus Drainage Cardiovascular: Denies: Chest Pain, Palpitations Respiratory: Denies: Cough, Shortness of breath at rest, Sputum production Gastrointestinal: Denies: Abdominal Pain, Nausea, Vomiting Genitourinary: Denies: Dysuria Musculoskeletal: Denies: Joint Pain, Joint Tenderness Skin: Denies: Rash, Wounds Neurological: Reports: Focal weakness, Numbness, Tingling Psychiatric: Denies: Anxiety, Depression, Homicidal Ideations, Suicidal Ideations Hematologic/ Lymphatic: Denies: Easy Bruising, Easy Bleeding VTE Information - Inpt Only VTE Present on Admission: No VTE Mechan Device Prophylaxis: None VTE Pharm Prophylaxis ordered?: Yes Patient Problems: Active and Suspected Problems (Last Updated 06/12/17 @ 13:43 by Lobo Cheng, ) Numbness and tingling of right arm (Acute) - Physical Exam General: Alert, Oriented x3, Cooperative HEENT: Atraumatic, PERRLA, EOMI, Normocephalic Neck: Supple, Negative Carotid Bruits Lungs: Clear to auscultation, Normal air movement, No rhonchi, No wheeze, No rales Cardiovascular: Regular rate, Regular Rhythm, Normal S1, Normal S2, No murmurs Abdomen: Bowel Sounds Present, Soft, Non Tender Extremities: No edema, Capillary Refill Less than 3 Seconds Skin: No rashes, No breakdown Musculoskeletal: No Tenderness to Palpation of Joints or Extremities Neurological: Cranial nerves II-XII grossly intact, Tongue Deviation - slight deviation to the left (may be chronic) Psych/Mental Status: Normal Affect, Appropriate Vital Signs Temp Pulse Resp BP Pulse Ox 98.5 F 63 18 160/64 H 94 10/24/17 03:03 10/24/17 03:03 10/24/17 03:03 10/24/17 03:03 10/24/17 03:03 Oxygen Delivery Method Room Air Weight: 217 lb 9.54 oz Body Mass Index (BMI) 26.4 Finger Stick Blood Glucose 113 Laboratory Tests Past 24 Hrs 10/24/17 10/24/17 10/24/17 01:25 01:25 01:25 WBC 5.2 RBC 4.27 L Hgb 12.9 L Hct 39.1 L MCV 91.6 MCH 30.2 MCHC 33.0 RDW 13.5 RDW Differential 44.6 H Plt Count 140 L MPV 9.6 Immature Gran % (Auto) 0.200 Neut % (Auto) 51.6 Lymph % (Auto) 34.6 [place] % (Auto) 9.7 Eos % (Auto) 3.3 Baso % (Auto) 0.6 Absolute Neuts (auto) 2.7 Absolute Lymphs (auto) 1.79 Total Counted Not Reportable PT 13.8 INR 1.1 APTT 28.6 Sodium 135 L Potassium 3.8 Chloride 103 Carbon Dioxide 28.0 Anion Gap 4 L BUN 21 H Creatinine 0.83 Estim Creat Clear Calc 92.96 Est GFR (MDRD) Af Amer 116 Est GFR (MDRD) Non-Af 96 BUN/Creatinine Ratio 25.3 H Glucose 111 H Calcium 8.8 Troponin I < 0.02 POC Glucose 10/24/17 01:23 POC Glucose 113 H Assessment/Plan Active and Suspected Problems (Last Updated 06/12/17 @ 13:43 by Lobo Cheng DO) Numbness and tingling of right arm (Acute) Chronic Problems (Last Updated 06/12/17 @ 13:43 by Lobo Cheng DO) Vascular dementia (Chronic) Cervical spinal stenosis (Chronic) Left hemiparesis (Chronic) Tongue cancer (Chronic) Obstructive sleep apnea (Chronic) Hyperlipidemia (Chronic) Overactive bladder (Chronic) Cerebrovascular disease (Chronic) Stroke (Chronic) HTN (hypertension) (Chronic) -Plan - admit to progressive care unit - neurochecks per routine. - routine MRI in am - consult Dr Baig - PT evaluation and treatment per routine stroke protocol - continue routine home medications - LMWH for DVT prophylaxis Code Visit Inpatient E&M: 01890 Init Hosp L3
--- NOTE | 2017-10-24 03:37 | HP.PCM_ITS ---
Problem List (1) Numbness and tingling of right arm Status: Acute (2) Vascular dementia Status: Chronic (3) Cervical spinal stenosis Status: Chronic (4) Left hemiparesis Status: Chronic (5) Tongue cancer Status: Chronic (6) Obstructive sleep apnea Status: Chronic (7) Hyperlipidemia Status: Chronic (8) Overactive bladder Status: Chronic (9) Cerebrovascular disease Status: Chronic (10) Generalized weakness Status: Acute (11) HTN (hypertension) Status: Chronic History of Present Illness Date of Admission: 10/24/17 Chief Complaint: right arm numbness and weakness The patient is a 77 year old male with a significant past medical history of stroke with residual left sided weakness presents to the ER with right arm numbness and tingling from hand to shoulder. This began at 5:00 this evening. He also has known cervical stenosis and is schedule to see a neurosurgeon next week to discuss options. Per his spouse the patient has more generalized weakness than usual. He has some URI symptoms as well but no fever. He does complain of a concurrent headache. He admits he was tired today after his physical therapy session. Past Medical History Past Medical History (Chronic Problems): Chronic Problems (Last Updated 06/12/17 @ 13:43 by Lobo Cheng DO) Vascular dementia (Chronic) Cervical spinal stenosis (Chronic) Left hemiparesis (Chronic) Tongue cancer (Chronic) Obstructive sleep apnea (Chronic) Hyperlipidemia (Chronic) Overactive bladder (Chronic) Cerebrovascular disease (Chronic) Stroke (Chronic) HTN (hypertension) (Chronic) Allergies chocolate flavor Adverse Reaction (Unknown, Verified 10/24/17 01:21) Other Pork/Porcine Containing Products Adverse Reaction (Unknown, Verified 10/24/17 01 :21) Other atorvastatin [From Lipitor] Adverse Reaction (Verified 10/24/17 01:21) Other oxybutynin Adverse Reaction (Verified 10/24/17 01:21) Other Home Medications: Ambulatory Orders Medication Instructions Recorded Aspirin [Aspirin, Baby] 81 mg PO DAILY 06/12/17 Multivit-Min/Folic Acid/Biotin 1 each PO DAILY 07/30/17 [Hair, Skin and Nails Caplet] [place]-3/Dha/Epa/Fish Oil [Fish Oil 1,200 mg PO DAILY 07/30/17 [place]-3 EC 1,200 mg] Vitamin E (Dl,Tocopheryl Acet) 400 units PO DAILY 07/30/17 [Vitamin E] Acetaminophen [Tylenol] 1,000 mg PO Q8H PRN PRN tablet 08/29/17 Amlodipine [Norvasc] 5 mg PO DAILY #30 tab 08/29/17 Galantamine Hbr [Razadyne] 4 mg PO BIDCM #60 tab 08/29/17 Lisinopril [Zestril] 10 mg PO DAILY 10/14/17 Surgical History: total hip arthroplasty - Right hip, hemiarthroplasty., - - Tongue resection. Psychiatric History: No pertinent psych hx Smoking Status: Never smoker - *Family History Maternal History Items: No pertinent history Paternal History Items: No pertinent history Review of Systems Constitutional: Denies: Chills, Fever, Weight Change HEENT: Denies: Head Aches, Sinus Congestion, Sinus Drainage Cardiovascular: Denies: Chest Pain, Palpitations Respiratory: Denies: Cough, Shortness of breath at rest, Sputum production Gastrointestinal: Denies: Abdominal Pain, Nausea, Vomiting Genitourinary: Denies: Dysuria Musculoskeletal: Denies: Joint Pain, Joint Tenderness Skin: Denies: Rash, Wounds Neurological: Reports: Focal weakness, Numbness, Tingling Psychiatric: Denies: Anxiety, Depression, Homicidal Ideations, Suicidal Ideations Hematologic/ Lymphatic: Denies: Easy Bruising, Easy Bleeding VTE Information - Inpt Only VTE Present on Admission: No VTE Mechan Device Prophylaxis: None VTE Pharm Prophylaxis ordered?: Yes Patient Problems: Active and Suspected Problems (Last Updated 06/12/17 @ 13:43 by Lobo Cheng , ) Numbness and tingling of right arm (Acute) - Physical Exam General: Alert, Oriented x3, Cooperative HEENT: Atraumatic, PERRLA, EOMI, Normocephalic Neck: Supple, Negative Carotid Bruits Lungs: Clear to auscultation, Normal air movement, No rhonchi, No wheeze, No rales Cardiovascular: Regular rate, Regular Rhythm, Normal S1, Normal S2, No murmurs Abdomen: Bowel Sounds Present, Soft, Non Tender Extremities: No edema, Capillary Refill Less than 3 Seconds Skin: No rashes, No breakdown Musculoskeletal: No Tenderness to Palpation of Joints or Extremities Neurological: Cranial nerves II-XII grossly intact, Tongue Deviation - slight deviation to the left (may be chronic) Psych/Mental Status: Normal Affect, Appropriate Vital Signs Temp Pulse Resp BP Pulse Ox 98.5 F 63 18 160/64 H 94 10/24/17 03:03 10/24/17 03:03 10/24/17 03:03 10/24/17 03:03 10/24/17 03:03 Oxygen Delivery Method Room Air Weight: 217 lb 9.54 oz Body Mass Index (BMI) 26.4 Finger Stick Blood Glucose 113 Laboratory Tests Past 24 Hrs 10/24/17 10/24/17 10/24/17 01:25 01:25 01:25 WBC 5.2 RBC 4.27 L Hgb 12.9 L Hct 39.1 L MCV 91.6 MCH 30.2 MCHC 33.0 RDW 13.5 RDW Differential 44.6 H Plt Count 140 L MPV 9.6 Immature Gran % (Auto) 0.200 Neut % (Auto) 51.6 Lymph % (Auto) 34.6 [place] % (Auto) 9.7 Eos % (Auto) 3.3 Baso % (Auto) 0.6 Absolute Neuts (auto) 2.7 Absolute Lymphs (auto) 1.79 Total Counted Not Reportable PT 13.8 INR 1.1 APTT 28.6 Sodium 135 L Potassium 3.8 Chloride 103 Carbon Dioxide 28.0 Anion Gap 4 L BUN 21 H Creatinine 0.83 Estim Creat Clear Calc 92.96 Est GFR (MDRD) Af Amer 116 Est GFR (MDRD) Non-Af 96 BUN/Creatinine Ratio 25.3 H Glucose 111 H Calcium 8.8 Troponin I < 0.02 POC Glucose 10/24/17 01:23 POC Glucose 113 H Assessment/Plan Active and Suspected Problems (Last Updated 06/12/17 @ 13:43 by Lobo Cheng DO) Numbness and tingling of right arm (Acute) Chronic Problems (Last Updated 06/12/17 @ 13:43 by Lobo Cheng DO) Vascular dementia (Chronic) Cervical spinal stenosis (Chronic) Left hemiparesis (Chronic) Tongue cancer (Chronic) Obstructive sleep apnea (Chronic) Hyperlipidemia (Chronic) Overactive bladder (Chronic) Cerebrovascular disease (Chronic) Stroke (Chronic) HTN (hypertension) (Chronic) -Plan - admit to progressive care unit - neurochecks per routine. - routine MRI in am - consult Dr Baig - PT evaluation and treatment per routine stroke protocol - continue routine home medications - LMWH for DVT prophylaxis Code Visit Inpatient E&M: 16417 Init Hosp L3
[2017-10-24] MEDS: Ketorolac 30 MG/ML Syringe 15 MG IV (04:00)
--- NOTE | 2017-10-24 04:27 | MRI_ITS ---
STUDY: MRI BRAIN WITHOUT CONTRAST REASON FOR EXAM: Male, 77 years old. CVA, h/a, numbness/tingling rt arm; chronic lt hemiparesis from prior cva TECHNIQUE: Standardized multiplanar fat and water weighted pulse sequences were obtained. COMPARISON: None. FINDINGS: There is moderate cerebral atrophy with widening of the extra-axial spaces and ventricular dilatation. There are multiple white matter hyperintensities, distributed throughout the deep white matter tracts of the cerebral hemispheres, consistent with moderate chronic white matter ischemic changes. There are prominent perivascular spaces (PVS) involving the basal ganglia. Normal thalami. There is no extra-axial fluid accumulation. Normal flow voids within the major intracranial circulation suggesting patency by spin echo criteria. Normal sella turcica, pituitary gland, infundibular stalk, optic chiasm and hypothalamus. Normal tectal plate and pineal gland. Normal midbrain, blanco and medulla. Normal cerebellum. Normal basal cisterns. Normal bilateral temporal bones. Normal bilateral internal auditory canals. No demonstrated orbital abnormality, within the constraints of a routine brain study. There is mucoperiosteal inflammatory disease of the paranasal sinuses consistent with moderate chronic sinusitis. Normal calvarium and skull base. Normal visualized soft tissue structures. Normal visualized upper cervical spine. MRI/Brain without Contrast IMPRESSION: Involutional changes of the brain, as described above. Electronically Signed: Ca Larsen MD at 12:22 EDT Tel , Service support ,
[2017-10-24 06:28] LABS: Cholesterol 146 mg/dL (200); High Density Lipoprotein 45 mg/dL; Triglycerides 102 mg/dL; Very Low Density Lipoprotein 20 mg/dL (5-40)
[2017-10-24] MEDS: Vitamin E 400 UNITS Capsule PO (09:32)
[2017-10-24] MEDS: amLODIPine 5 MG Tablet PO (09:32)
[2017-10-24] MEDS: Lisinopril 10 MG Tablet PO (09:32)
[2017-10-24] MEDS: Aspirin 81 MG TAB.CHEW PO (09:32)
[2017-10-24] MEDS: Multivitamins,Therapeutic Tablet 1 TABLET PO (09:32)
[2017-10-24] MEDS: Galantamine Hydrobromide 4 MG Tablet PO (09:32)
[2017-10-24] MEDS: Enoxaparin 40 MG/0.4 ML Syringe SC (09:32)
--- NOTE | 2017-10-24 11:16 | CASEMGMT ---
ADRIANNE SHAFFER Face to Face with patient for initial transition planning/care coordination assessment. RN DEENA introduced self and role at [facility]. Patient lying in bed, alert and oriented. Patient willing to participate in assessment and is able to answer all questions appropriately. Care providers, pharmacy, and demographics verified. Patient has BSC, grab bars, walker, Cpap at home. Patient lives in 1 story home with who assists with care. Patient wishes to discharge home with resumption of outpatient therapy. Patient states he has no further needs or concerns at this time. CM to follow for discharge planning needs that may arise. Disposition Plan: Patient to discharge home with outpatient therapy, family support, and follow-up plans in place.
--- NOTE | 2017-10-24 11:29 | PCM.CONS.GEN ---
Reason for Consult Date of Consultation: 10/24/17 Reason for Consultation: vertigo History of Present Illness: The patient is a 77 year old right handed male yesterday about 5pm began to experience headache followed by right arm tingling and presented to the hospital. he has a history of migraine for which gave him tylenol to no avail and brought him to the hospital. reports normal now with no headache but persistent tingling in right arm and hand however fingers not affected. no neck pain. reports he is seeing a neurosurgeon next week. denies having pain or forceful manipulation with therapies. per admit h&p:The patient is a 77 year old male with a significant past medical history of stroke with residual left sided weakness presents to the ER with right arm numbness and tingling from hand to shoulder. This began at 5:00 this evening. He also has known cervical stenosis and is schedule to see a neurosurgeon next week to discuss options. Per his spouse the patient has more generalized weakness than usual. He has some URI symptoms as well but no fever. He does complain of a concurrent headache. He admits he was tired today after his physical therapy session. Past Medical History Past Medical History (Chronic Problems): Chronic Problems (Last Updated 06/12/17 @ 13:43 by Lobo Cheng DO) Vascular dementia (Chronic) Cervical spinal stenosis (Chronic) Left hemiparesis (Chronic) Tongue cancer (Chronic) Obstructive sleep apnea (Chronic) Hyperlipidemia (Chronic) Overactive bladder (Chronic) Cerebrovascular disease (Chronic) Stroke (Chronic) HTN (hypertension) (Chronic) Allergies chocolate flavor Adverse Reaction (Unknown, Verified 10/24/17 01:21) Other Pork/Porcine Containing Products Adverse Reaction (Unknown, Verified 10/24/17 01:21) Other atorvastatin [From Lipitor] Adverse Reaction (Verified 10/24/17 01:21) Other oxybutynin Adverse Reaction (Verified 10/24/17 01:21) Other Home Medications: Ambulatory Orders Medication Instructions Recorded Aspirin [Aspirin, Baby] 81 mg PO DAILY 06/12/17 Multivit-Min/Folic Acid/Biotin 1 each PO DAILY 07/30/17 [Hair, Skin and Nails Caplet] [place]-3/Dha/Epa/Fish Oil [Fish Oil 1,200 mg PO DAILY 07/30/17 [place]-3 EC 1,200 mg] Vitamin E (Dl,Tocopheryl Acet) 400 units PO DAILY 07/30/17 [Vitamin E] Acetaminophen [Tylenol] 1,000 mg PO Q8H PRN PRN tablet 08/29/17 Amlodipine [Norvasc] 5 mg PO DAILY #30 tab 08/29/17 Galantamine Hbr [Razadyne] 4 mg PO BIDCM #60 tab 08/29/17 Lisinopril [Zestril] 10 mg PO DAILY 10/14/17 Surgical History: total hip arthroplasty - Right hip, hemiarthroplasty., - - Tongue resection. Psychiatric History: No pertinent psych hx Smoking Status: Never smoker - *Family History Maternal History Items: No pertinent history Paternal History Items: No pertinent history Review of Systems Constitutional: Denies: Chills, Fever, Weight Change HEENT: Denies: Head Aches, Sinus Congestion, Sinus Drainage Cardiovascular: Denies: Chest Pain, Palpitations Respiratory: Denies: Cough, Shortness of breath at rest, Sputum production Gastrointestinal: Denies: Abdominal Pain, Nausea, Vomiting Genitourinary: Denies: Dysuria Musculoskeletal: Denies: Joint Pain, Joint Tenderness Skin: Denies: Rash, Wounds Neurological: Denies: Numbness, Tingling, Focal weakness Psychiatric: Denies: Anxiety, Depression, Homicidal Ideations, Suicidal Ideations Hematologic/ Lymphatic: Denies: Easy Bruising, Easy Bleeding Patient Problems: Active and Suspected Problems (Last Updated 06/12/17 @ 13:43 by Lobo Cheng DO) Numbness and tingling of right arm (Acute) - Physical Exam General: Alert, Oriented x3, Cooperative HEENT: Atraumatic, PERRLA, EOMI, Normocephalic Neck: Supple, No JVD, Negative Carotid Bruits Lungs: Clear to auscultation, Normal air movement Cardiovascular: Regular rate, No murmurs Abdomen: Bowel Sounds Present, Soft, Non Tender Extremities: No edema, Capillary Refill Less than 3 Seconds Skin: No rashes, No breakdown Musculoskeletal: No Tenderness to Palpation of Joints or Extremities Neurological: Cranial nerves II-XII grossly intact Psych/Mental Status: Normal Affect, Appropriate Vital Signs Temp Pulse Resp BP Pulse Ox 36.6 C 66 16 157/85 H 96 10/24/17 08:26 10/24/17 08:26 10/24/17 08:26 10/24/17 08:26 10/24/17 08:26 Oxygen Delivery Method Room Air Weight: 96.8 kg Body Mass Index (BMI) 25.9 Intake and Output for Last 24 Hours 10/22/17 10/23/17 10/24/17 23:59 23:59 23:59 Intake Total 54 / 54 Balance 54 / 54 Laboratory Tests Past 24 Hrs 10/24/17 05:40 Triglycerides 102 Cholesterol 146 LDL Cholesterol 81 VLDL Cholesterol 20 HDL Cholesterol 45 Current Home Med List Medication Instructions Recorded Confirmed Type Aspirin [Aspirin, Baby] 81 mg PO DAILY 06/12/17 10/24/17 History Multivit-Min/Folic Acid/Biotin 1 each PO DAILY 07/30/17 10/24/17 History [Hair, Skin and Nails Caplet] [place]-3/Dha/Epa/Fish Oil [Fish Oil 1,200 mg PO DAILY 07/30/17 10/24/17 History [place]-3 EC 1,200 mg] Vitamin E (Dl,Tocopheryl Acet) 400 units PO DAILY 07/30/17 10/24/17 History [Vitamin E] Acetaminophen [Tylenol] 1,000 mg PO Q8H PRN PRN tablet 08/29/17 10/24/17 Rx Amlodipine [Norvasc] 5 mg PO DAILY #30 tab 08/29/17 10/24/17 Rx Galantamine Hbr [Razadyne] 4 mg PO BIDCM #60 tab 08/29/17 10/24/17 Rx Lisinopril [Zestril] 10 mg PO DAILY 10/14/17 10/24/17 History Current Medications Acetaminophen 1,000 mg 10/24/17 04:27 Tylenol PO Q8H PRN PRN MILD PAIN (1-3/10) Amlodipine Besylate 5 mg 10/24/17 10:00 10/24/17 09:32 Norvasc PO 5 mg DAILY MIROSLAVA Administration Aspirin 81 mg 10/24/17 08:00 10/24/17 09:32 Aspirin, Baby PO 81 mg DAILYCM MIROSLAVA Administration Enoxaparin Sodium 40 mg 10/24/17 10:00 10/24/17 09:32 Lovenox SC 40 mg DAILY@1000 MIROSLAVA Administration Galantamine Hydrobromide 4 mg 10/24/17 08:00 10/24/17 09:32 Razadyne PO 4 mg BIDCM MIROSLAVA Administration Lisinopril 10 mg 10/24/17 10:00 10/24/17 09:32 Zestril PO 10 mg DAILY MIROSLAVA Administration Magnesium Hydroxide 30 ml 10/24/17 04:27 Milk Of Magnesia PO DAILY PRN Constipation Multivitamins 1 tablet 10/24/17 08:00 10/24/17 09:32 Multivitamin PO 1 tablet DAILY@0800 MIROSLAVA Administration Vitamin E 400 units 10/24/17 10:00 10/24/17 09:32 Vitamin E PO 400 units DAILY MIROSLAVA Administration mri reviewed, atrophy, no acute Assessment/Plan Active and Suspected Problems (Last Updated 06/12/17 @ 13:43 by Lobo Cheng DO) Numbness and tingling of right arm (Acute) right arm paresthesias, likely migraine equivalent, now symptoms mild. also has viral syndrome as confounder ok to dc mri neg for acute followup with ns as planned prn rx for migraine
--- NOTE | 2017-10-24 13:28 | PCM.DC ---
- Discharge Diagnoses Current Active Problems: Current Active and Chronic Problems (Last Updated 06/12/17 @ 13:43 by Lobo Cheng DO) Numbness and tingling of right arm (Acute) Reason(s) for Visit for Discharge Instructions: Right arm numbness You will use the following diet at home:: Cardiac Your food should be the consistency of: Regular Your liquids should be the consistency of: Regular/Thin Discharge Activity: Return to Normal Activity Allergies/Adverse Reactions: Allergies chocolate flavor Adverse Reaction (Unknown, Verified 10/24/17 01:21) Other Pork/Porcine Containing Products Adverse Reaction (Unknown, Verified 10/24/17 01:21) Other atorvastatin [From Lipitor] Adverse Reaction (Verified 10/24/17 01:21) Other oxybutynin Adverse Reaction (Verified 10/24/17 01:21) Other Medications to take at Discharge Aspirin [Aspirin, Baby] 81 mg PO DAILY 06/12/17 Multivit-Min/Folic Acid/Biotin [Hair, Skin and Nails Caplet] 1 each PO DAILY 07/30/17 [place]-3/Dha/Epa/Fish Oil [Fish Oil [place]-3 EC 1,200 mg] 1,200 mg PO DAILY 07/30/17 Vitamin E (Dl,Tocopheryl Acet) [Vitamin E] 400 units PO DAILY 07/30/17 Acetaminophen [Tylenol] 1,000 mg PO Q8H PRN PRN tablet 08/29/17 Amlodipine [Norvasc] 5 mg PO DAILY #30 tab 08/29/17 Galantamine Hbr [Razadyne] 4 mg PO BIDCM #60 tab 08/29/17 Lisinopril [Zestril] 10 mg PO DAILY 10/14/17 Primary Care Physician: Marcela Choi MD [Primary Care Provider] - Please follow up with your Primary Care Physician in: within 2 weeks When: Follow-up with neurosurgery as planned on 10/27/17 Proposed Discharge Date: 10/24/17
--- NOTE | 2017-10-24 13:31 | DCINST_ITS ---
- Discharge Diagnoses Current Active Problems: Current Active and Chronic Problems (Last Updated 06/12/17 @ 13:43 by Lobo Cheng DO) Numbness and tingling of right arm (Acute) Reason(s) for Visit for Discharge Instructions: Right arm numbness You will use the following diet at home:: Cardiac Your food should be the consistency of: Regular Your liquids should be the consistency of: Regular/Thin Discharge Activity: Return to Normal Activity Allergies/Adverse Reactions: Allergies chocolate flavor Adverse Reaction (Unknown, Verified 10/24/17 01:21) Other Pork/Porcine Containing Products Adverse Reaction (Unknown, Verified 10/24/17 01 :21) Other atorvastatin [From Lipitor] Adverse Reaction (Verified 10/24/17 01:21) Other oxybutynin Adverse Reaction (Verified 10/24/17 01:21) Other Medications to take at Discharge Aspirin [Aspirin, Baby] 81 mg PO DAILY 06/12/17 Multivit-Min/Folic Acid/Biotin [Hair, Skin and Nails Caplet] 1 each PO DAILY 10/11 [place]-3/Dha/Epa/Fish Oil [Fish Oil [place]-3 EC 1,200 mg] 1,200 mg PO DAILY Vitamin E (Dl,Tocopheryl Acet) [Vitamin E] 400 units PO DAILY 07/30/17 Acetaminophen [Tylenol] 1,000 mg PO Q8H PRN PRN tablet 08/29/17 Amlodipine [Norvasc] 5 mg PO DAILY #30 tab 08/29/17 Galantamine Hbr [Razadyne] 4 mg PO BIDCM #60 tab 08/29/17 Lisinopril [Zestril] 10 mg PO DAILY 10/14/17 Primary Care Physician: Marcela Choi MD [Primary Care Provider] - Please follow up with your Primary Care Physician in: within 2 weeks When: Follow-up with neurosurgery as planned on 10/27/17 Proposed Discharge Date: 10/24/17
--- NOTE | 2017-10-24 13:31 | PCM.DC.SUM ---
Discharge Date and Diagnosis - Problem List Patient Problems: Active and Suspected Problems (Last Updated 06/12/17 @ 13:43 by Lobo Cheng DO) Numbness and tingling of right arm (Acute) Date of Admission: 10/24/17 Date of Discharge: 10/24/17 - Primary Discharge Diagnosis Active and Suspected Problems (Last Updated 06/12/17 @ 13:43 by Lobo Cheng DO) Numbness and tingling of right arm (Acute) - Secondary Discharge Diagnosis Chronic Problems (Last Updated 06/12/17 @ 13:43 by Lobo Cheng DO) Vascular dementia (Chronic) Cervical spinal stenosis (Chronic) Left hemiparesis (Chronic) Tongue cancer (Chronic) Obstructive sleep apnea (Chronic) Hyperlipidemia (Chronic) Overactive bladder (Chronic) Cerebrovascular disease (Chronic) Stroke (Chronic) HTN (hypertension) (Chronic) Hospital Course and Treatment Imaging Results: Clinical Impression(s) from Imaging Studies Brain CT 10/24/17 01:27 IMPRESSION: Chronic involutional changes of the brain. No demonstrated acute intracranial process. Acute left ethmoid sinusitis, overlying chronic sinus disease. Mild right mastoiditis. Electronically Signed: Sarabjit Alberts MD at 3:18 EDT , Service support , Chest X-Ray 10/24/17 01:27 IMPRESSION: Mild chronic interstitial changes. Borderline heart size. No evidence for acute cardiopulmonary pathology. Electronically Signed: Sarabjit Alberts MD at 2:42 EDT , Service support , Brain MRI 10/24/17 04:27 IMPRESSION: Involutional changes of the brain, as described above. Electronically Signed: Ca Larsen MD at 12:22 EDT Tel , Service support , Neurology Operations: None Procedures: None Summary of Care Provided: The patient is a 77 year old M past medical history of CVA with left-sided residual weakness, vascular dementia, cervical stenosis, comes in with complaints of right arm numbness and tingling that started the night of the admission. He also had a concurrent headache and had upper respiratory symptoms. He was recently discharged from TCU and has been following up in the outpatient with physical therapy. He was admitted to the PCU and kept on telemetry with no events. He was seen by neurology who thought that the headache with the right arm tingling was a migraine equivalent. Patient had an MRI of the brain that was negative for any acute stroke. He has a neurosurgery appointment planned for Monday, 27 October, he was encouraged to keep the appointment. Discharge Diet: Low fat/ Low Cholesterol, 2000 mg Sodium Diet Discharge Activity: Return to Normal Activity Home Medications: Medications to take at Discharge Aspirin [Aspirin, Baby] 81 mg PO DAILY 06/12/17 Multivit-Min/Folic Acid/Biotin [Hair, Skin and Nails Caplet] 1 each PO DAILY 07/30/17 [place]-3/Dha/Epa/Fish Oil [Fish Oil [place]-3 EC 1,200 mg] 1,200 mg PO DAILY 07/30/17 Vitamin E (Dl,Tocopheryl Acet) [Vitamin E] 400 units PO DAILY 07/30/17 Acetaminophen [Tylenol] 1,000 mg PO Q8H PRN PRN tablet 08/29/17 Amlodipine [Norvasc] 5 mg PO DAILY #30 tab 08/29/17 Galantamine Hbr [Razadyne] 4 mg PO BIDCM #60 tab 08/29/17 Lisinopril [Zestril] 10 mg PO DAILY 10/14/17 Primary Care Physician: Marcela Choi MD [Primary Care Provider] - Please follow up with your Primary Care Physician in: within 2 weeks When: Follow-up with neurosurgery as planned on 10/27/17 Disposition: Home Minutes spent on discharge:: 40 Patient Condition:: Stable Medical Necessity - Tobacco Use Smoking Status: Never smoker Meaningful Use Info Meaningful Use Diagnoses (Choose all that apply): None applicable Code Visit Inpatient E&M: 19871 Disch Hosp
--- NOTE | 2017-10-24 13:36 | DS.PCM_ITS ---
Discharge Date and Diagnosis - Problem List Patient Problems: Active and Suspected Problems (Last Updated 06/12/17 @ 13:43 by Lobo Cheng DO) Numbness and tingling of right arm (Acute) Date of Admission: 10/24/17 Date of Discharge: 10/24/17 - Primary Discharge Diagnosis Active and Suspected Problems (Last Updated 06/12/17 @ 13:43 by Lobo Cheng DO) Numbness and tingling of right arm (Acute) - Secondary Discharge Diagnosis Chronic Problems (Last Updated 06/12/17 @ 13:43 by Lobo Cheng DO) Vascular dementia (Chronic) Cervical spinal stenosis (Chronic) Left hemiparesis (Chronic) Tongue cancer (Chronic) Obstructive sleep apnea (Chronic) Hyperlipidemia (Chronic) Overactive bladder (Chronic) Cerebrovascular disease (Chronic) Stroke (Chronic) HTN (hypertension) (Chronic) Hospital Course and Treatment Imaging Results: Clinical Impression(s) from Imaging Studies Brain CT 10/24/17 01:27 IMPRESSION: Chronic involutional changes of the brain. No demonstrated acute intracranial process. Acute left ethmoid sinusitis, overlying chronic sinus disease. Mild right mastoiditis. Electronically Signed: Sarabjit Alberts MD at 3:18 EDT , Service support , Chest X-Ray 10/24/17 01:27 IMPRESSION: Mild chronic interstitial changes. Borderline heart size. No evidence for acute cardiopulmonary pathology. Electronically Signed: Sarabjit Alberts MD at 2:42 EDT , Service support , Brain MRI 10/24/17 04:27 IMPRESSION: Involutional changes of the brain, as described above. Electronically Signed: Ca Larsen MD at 12:22 EDT Tel , Service support , Neurology Operations: None Procedures: None Summary of Care Provided: The patient is a 77 year old M past medical history of CVA with left-sided residual weakness, vascular dementia, cervical stenosis, comes in with complaints of right arm numbness and tingling that started the night of the admission. He also had a concurrent headache and had upper respiratory symptoms. He was recently discharged from TCU and has been following up in the outpatient with physical therapy. He was admitted to the PCU and kept on telemetry with no events. He was seen by neurology who thought that the headache with the right arm tingling was a migraine equivalent. Patient had an MRI of the brain that was negative for any acute stroke. He has a neurosurgery appointment planned for Monday, 27 October, he was encouraged to keep the appointment. Discharge Diet: Low fat/ Low Cholesterol, 2000 mg Sodium Diet Discharge Activity: Return to Normal Activity Home Medications: Medications to take at Discharge Aspirin [Aspirin, Baby] 81 mg PO DAILY 06/12/17 Multivit-Min/Folic Acid/Biotin [Hair, Skin and Nails Caplet] 1 each PO DAILY 10/11 [place]-3/Dha/Epa/Fish Oil [Fish Oil [place]-3 EC 1,200 mg] 1,200 mg PO DAILY Vitamin E (Dl,Tocopheryl Acet) [Vitamin E] 400 units PO DAILY 07/30/17 Acetaminophen [Tylenol] 1,000 mg PO Q8H PRN PRN tablet 08/29/17 Amlodipine [Norvasc] 5 mg PO DAILY #30 tab 08/29/17 Galantamine Hbr [Razadyne] 4 mg PO BIDCM #60 tab 08/29/17 Lisinopril [Zestril] 10 mg PO DAILY 10/14/17 Primary Care Physician: Marcela Choi MD [Primary Care Provider] - Please follow up with your Primary Care Physician in: within 2 weeks When: Follow-up with neurosurgery as planned on 10/27/17 Disposition: Home Minutes spent on discharge:: 40 Patient Condition:: Stable Medical Necessity - Tobacco Use Smoking Status: Never smoker Meaningful Use Info Meaningful Use Diagnoses (Choose all that apply): None applicable Code Visit Inpatient E&M: 50736 Disch Hosp
--- NOTE | 2017-10-25 17:21 | CASEMGMT ---
CALLBACK: Follow-up phone call attempted. Voicemail received.
== END 2017-10-24 14:06 | disposition home or self-care (01) ==
LOC: ED 03:34 → PCU 03:45
PROVIDERS: Admitting Provider Family Medicine; Emergency Provider Emergency Medicine; Family Provider Family Medicine; PCP Family Medicine; Visit Provider Internal Medicine
DX: R20.0 Anesthesia of skin (principal); R20.2 Paresthesia of skin; E78.5 Hyperlipidemia, unspecified; N32.81 Overactive bladder; I10 Essential (primary) hypertension; Z79.899 Other long term (current) drug therapy; Z79.82 Long term (current) use of aspirin; G47.33 Obstructive sleep apnea (adult) (pediatric); Z85.810 Personal history of malignant neoplasm of tongue; I69.354 Hemiplegia and hemiparesis following cerebral infarction affecting left non-dominant side; F01.50 Vascular dementia, unspecified severity, without behavioral disturbance, psychotic disturbance, mood disturbance, and anxiety; R53.1 Weakness; M48.02 Spinal stenosis, cervical region; R42 Dizziness and giddiness; R51 Headache; J02.9 Acute pharyngitis, unspecified; R26.81 Unsteadiness on feet; H70.91 Unspecified mastoiditis, right ear; J01.20 Acute ethmoidal sinusitis, unspecified
CPT/HCPCS: 36415; 36592; 70450; 70551; 71045; 80048; 80061; 82962; 84484; 85025; 85610; 85730; 93005; 96361; 96372; 96374; 99218; 99285; J7030; A4216; G0378

== ENCOUNTER 2018-01-31 22:09 | Observation (INO) | payer BC, MEDICARE, SELFPAY ==
[2018-01-31] VITALS (8 sets, daily range): BP systolic 146–160; BP diastolic 69–87; PULSE 56–63; RESP 15–24; TEMP 36.6; O2SAT 94–97; BMI 25.7
--- NOTE | 2018-01-31 22:25 | CT_ITS ---
STUDY: CT BRAIN WITHOUT CONTRAST REASON FOR EXAM: Male, 77 years old. Headache RADIATION DOSAGE (If Supplied By Facility): CTDIvol = ( 44.99 ) mGy, DLP = ( 897.35 ) mGycm TECHNIQUE: Transaxial CT imaging of the brain was performed without administration of intravenous contrast material. Individualized dose optimization techniques were used for this CT. COMPARISON: October 24, 2017 FINDINGS: Normal soft tissue structures. Normal calvarium. Prominent size ventricles and extra-axial spaces with atrophy. Stable white matter microangiopathic ischemic changes of the cerebral hemispheres. Old lacunar infarct in the right thalamus and basal ganglia. Normal brainstem. Normal cerebellum. There is no intracranial hemorrhage. There are no findings of an acute ischemic infarction. Normal visualized paranasal sinuses. CT/Brain/Head without Contrast IMPRESSION: Stable age-related and chronic changes of the brain similar to previous study. N.B. : The above information has been verbally conveyed by Donnie Sheehan DO to Dionicio Argueta, Referring Physician, on 01/31/2018 22:47:20 (ET). Electronically Signed: Donnie Sheehan DO at 22:47 EDT Tel [phone], Service support ,
[2018-01-31 22:26] LABS: Bedside Glucose 140 mg/dL (70-110)
--- NOTE | 2018-01-31 22:30 | RAD_ITS ---
STUDY: X-RAY CHEST REASON FOR EXAM: Male, 77 years old. Numbness, tingling TECHNIQUE: Single frontal view COMPARISON: October 24, 2017 FINDINGS: The lungs are clear and expanded. There is no demonstrated pleural abnormality. Normal size heart. Normal mediastinum and ann. Normal visualized pulmonary arteries. Normal visualized aortic arch and descending thoracic aorta. Degenerative changes of the thoracic spine. Normal visualized ribs, clavicles, and shoulders. There is no demonstrated abnormality of the visualized soft tissue structures of the upper abdomen. RAD/Chest 1 View IMPRESSION: Normal x-ray examination of the chest. Electronically Signed: Donnie Sheehan DO at 22:50 EDT Tel [phone], Service support ,
[2018-01-31 22:42] LABS: Absolute Lymphocyte Count 2.24 X10^3/ul (0.83-4.51); Absolute Neutrophil Count 2.4 X10^3/uL (2.0-7.7); Basophil# 0.02 X10^3/uL; Basophil% 0.4 % (0-1); Eosinophils% 1.9 % (0-5); Hematocrit 39.5 % (40-54); Hemoglobin 12.9 g/dl (13.0-16.5); Lymphocyte # 2.24 X10^3/ul (4.0); Lymphocyte % 42.9 % (19-41); Mean Corp Hgb Conc 32.7 g/gl (32-36); Mean Corpuscular Hgb 29.9 pg (27.0-32.0); Mean Corpuscular Volume 91.6 fL (80-94); Mean Platelet Vol. 10.1 fl (6.2-12.0); Monocyte# 0.42 X10^3/uL; Neutrophil # 2.44 X10^3/uL (2.7-7.7); Neutrophil % 46.8 % (47-70); Platelet Count 141 K/mm3 (150-450); RBC Distribution Width CV 12.8 % (11.6-14.6); RBC Distribution Width SD 43.2 fl (35.1-43.9); Red Blood Count 4.31 M/mm3 (4.6-6.2); White Blood Count 5.2 K/mm3 (4.4-11.0)
[2018-01-31 22:43] LABS: POSITIVE COUNT NO; POSITIVE DIFFERENTIAL NO; POSITIVE MORPHOLOGY NO
[2018-01-31 22:45] LABS: International Normalized Ratio 1.1; Prothrombin Time (Protime)PT. 13.8 SECONDS (11.7-14.9)
[2018-01-31 22:46] LABS: Partial Thromboplast Time 26.8 Seconds (24.1-36.2)
[2018-01-31 22:54] LABS: Anion Gap 5 (5-15); BUN 20 mg/dL (7-18); BUN/Creat Ratio 21.8 RATIO (10-20); Calcium,Total 8.7 mg/dL (8.5-10.1); Chloride 103 mmol/L (98-107); Creatinine, Serum 0.92 mg/dL (0.70-1.30); EST Glomerular Filtration Rate 85 mL/min (>60); Est Glom Filt Rate - Afr Amer 103 mL/min (>60); Estimated Creatinine Clearance 83.86 ml/min; Glucose 133 mg/dL (74-106); Potassium 3.8 mmol/L (3.5-5.1); Sodium Level 139 mmol/L (136-145)
--- NOTE | 2018-01-31 23:30 | ED.DCSUM_ITS ---
- ER Visit Summary Date of Service: 01/31/18 Chief Complaint: Headache and left-sided paresthesias History of Present Illness: The patient is a 77 M with a history of stroke in 2016 that presented as a headache and left sided paresthesias. He received TPA at a [facility] for this. He has had chronic left-sided weakness and paresthesia since then as well as left lower facial droop. He also has a history of complex migraines that always present with visual scotoma and left upper extremity paresthesias but this is worse than usual tonight and feels similar to his prior stroke. Physical Examination: Vitals are essentially within normal limits. He is not in distress. He does have slight left lower facial droop but it is not worse than baseline according to his . His speech is clear. No problem with word finding. Neck is supple. Heart tones are regular without murmur. Lungs are clear bilaterally. Abdomen is soft and nontender. He does have subjective sensory deficit on the left upper extremity but not lower extremity. There is no weakness. No visual field cut. NIH is 1. Test Results: H was only 1 on arrival but he said that this feels similar to his stroke before when he received TPA. His symptoms started at 7 PM tonight, slightly over 3 hours prior to arrival. Because this was similar to her prior stroke, I did activate a stroke team. His initial noncontrast head CT was negative and then I obtained further history from his . His symptoms are not much different than his typical migraine except that his left upper extremity weakness is worse. He can still walk without difficulty at home after this started and he has no slurred speech. I discussed the case with Dr. Doni Baig and because his symptoms are similar to his previous migraine and on the same side as his previous stroke, as well as how mild they are in nature, we did not feel that he is a TPA candidate. Dr. Baig did recommend medical admission for further workup. Emergency Department Course and Treatment: Chest x-ray, EKG, and labs all reviewed. Case discussed with the hospitalist and he was admitted medically. Treatment Plan: Admit to telemetry Disposition: Admit stable condition Impression: Initial encounter left upper extremity paresthesias, complex migraine versus stroke This note was generated with [employer]antage[employer] software. It may contain incorrect words, spelling, and punctuation that were not noted in review of the chart prior to signing ED Disposition - Plan for ED Patient: Chief Complaint: Neuro S/Sx Referrals: Marcela Choi MD [Primary Care Provider] -
[2018-02-01] VITALS (13 sets, daily range): BP systolic 140–173; BP diastolic 75–86; PULSE 49–64; RESP 13–19; TEMP 36.3–36.5; O2SAT 93–100; BMI 27.2
--- NOTE | 2018-02-01 00:08 | PCM.HP.STD ---
Problem List (1) Migraine Status: Acute (2) Tongue cancer Status: Chronic (3) Obstructive sleep apnea Status: Chronic (4) HTN (hypertension) Status: Chronic History of Present Illness Date of Admission: 02/01/18 Chief Complaint: Headache ?1 day. The patient is a 77 year old M with a significant history of obstructive sleep apnea; complex migraine; left-sided stroke in 2016 and residual weakness on the left side; rectal cancer status post surgery; vascular dementia; hypertension presents with left supra orbital pain that started the night before his admission. Associated with symptoms is a visual changes and a tingling of his left arm. His reports that she has been instructed to give patient only Tylenol when patient has a headache. Accordingly, his administered two extra strength Tylenol to patient. Patient had no relief from the two extra strength Tylenol. Later on he received an extra dose of Tylenol and still had no relief. Patient denies any speech changes or any new focal weakness. He has dysrhythmia which his attributes to tongue surgery after he had tongue cancer. As mentioned above patient also has a history of complex migraine. In the past, visual changes and tingling has been part of his aura associated with his migraine. He has had migraine since he was a teenager. Because in January 2016 when he had a stroke he had a pretty much similar symptoms, the patient presented to the emergency department for further evaluation. Emergency department talked to the Baig concerning the patient's status. Patient was noted not to be a candidate for TPA. CT of the head did not show any acute pathology. Inpatient admission was recommended. Past Medical History Past Medical History (Chronic Problems): Chronic Problems (Last Reviewed 02/01/18 @ 06:56 by Royer Maxwell MD) Vascular dementia (Chronic) Cervical spinal stenosis (Chronic) Left hemiparesis (Chronic) Tongue cancer (Chronic) Obstructive sleep apnea (Chronic) Hyperlipidemia (Chronic) Overactive bladder (Chronic) Cerebrovascular disease (Chronic) Stroke (Chronic) HTN (hypertension) (Chronic) Medical History: Medical History (Last Reviewed 02/01/18 @ 06:56 by Royer Maxwell MD) Cerebrovascular disease (Chronic) I67.9 Allergies chocolate flavor Adverse Reaction (Unknown, Verified 01/31/18 22:26) Other Pork/Porcine Containing Products Adverse Reaction (Unknown, Verified 01/31/18 22:26) Other atorvastatin [From Lipitor] Adverse Reaction (Verified 01/31/18 22:26) Other oxybutynin Adverse Reaction (Verified 01/31/18 22:26) Other Home Medications: Ambulatory Orders Medication Instructions Recorded Aspirin [Aspirin, Baby] 81 mg PO DAILY 06/12/17 Multivit-Min/Folic Acid/Biotin 1 each PO DAILY 07/30/17 [Hair, Skin and Nails Caplet] [place]-3/Dha/Epa/Fish Oil [Fish Oil 1 each PO DAILY 07/30/17 [place]-3 EC 1,200 mg] Vitamin E (Dl,Tocopheryl Acet) 400 units PO DAILY 07/30/17 [Vitamin E] Acetaminophen [Tylenol] 1,000 mg PO Q8H PRN PRN tablet 08/29/17 Amlodipine [Norvasc] 5 mg PO DAILY #30 tab 08/29/17 Galantamine Hbr [Razadyne] 4 mg PO BIDCM #60 tab 08/29/17 Lisinopril [Prinivil] 10 mg PO DAILY 02/01/18 Surgical History: total hip arthroplasty - Right hip, hemiarthroplasty., - - Tongue resection. Psychiatric History: No pertinent psych hx Lives: Spouse/ Significant Other Smoking Status: Never smoker Alcohol: None Drugs: None - *Family History Maternal History Items: No pertinent history Paternal History Items: No pertinent history Review of Systems Constitutional: Denies: Chills, Fever, Weight Change Eyes: Reports: Vision Change HEENT: Reports: Dysphasia - Chronic, Head Aches Cardiovascular: Denies: Chest Pain, Palpitations Respiratory: Denies: Cough, Shortness of breath at rest, Sputum production Gastrointestinal: Denies: Abdominal Pain, Nausea, Vomiting Genitourinary: Denies: Dysuria Musculoskeletal: Denies: Joint Pain, Joint Tenderness Skin: Denies: Rash, Wounds Neurological: Reports: Tingling. Denies: Confusion Psychiatric: Denies: Anxiety, Depression, Homicidal Ideations, Suicidal Ideations Hematologic/ Lymphatic: Denies: Easy Bruising, Easy Bleeding VTE Information - Inpt Only VTE Present on Admission: No VTE Mechan Device Prophylaxis: None VTE Pharm Prophylaxis ordered?: Yes Patient Problems: Active and Suspected Problems (Last Reviewed 02/01/18 @ 06:56 by Royer Maxwell MD) Migraine (Acute) - Physical Exam General: Alert, Oriented x3, Cooperative HEENT: Atraumatic, PERRLA, EOMI, Normocephalic Neck: Supple, No JVD, Negative Carotid Bruits Lungs: Clear to auscultation, Normal air movement Cardiovascular: Murmur - Prominent at the aortic area. Patient and family report that this is chronic., Tachycardic - Mild Abdomen: Bowel Sounds Present, Soft, Non Tender Extremities: No edema, Capillary Refill Less than 3 Seconds Skin: No rashes, No breakdown Musculoskeletal: No Tenderness to Palpation of Joints or Extremities Neurological: - - Mild dysrhythmia; a facial droop with smiling but family reports that this is chronic. Strength very slightly reduced left upper extremity (~4/5); all other extremities unremarkable. Vital Signs Temp Pulse Resp BP Pulse Ox 97.9 F 56 L 18 160/74 H 94 01/31/18 22:11 01/31/18 23:59 01/31/18 23:59 01/31/18 23:59 01/31/18 23:59 Oxygen Delivery Method Room Air Weight: 95.708 kg Body Mass Index (BMI) 25.7 Finger Stick Blood Glucose 140 Laboratory Tests Past 24 Hrs 01/31/18 01/31/18 01/31/18 22:20 22:20 22:20 WBC 5.2 RBC 4.31 L Hgb 12.9 L Hct 39.5 L MCV 91.6 MCH 29.9 MCHC 32.7 RDW 12.8 RDW Differential 43.2 Plt Count 141 L MPV 10.1 Immature Gran % (Auto) 0.000 Neut % (Auto) 46.8 L Lymph % (Auto) 42.9 H [place] % (Auto) 8.0 Eos % (Auto) 1.9 Baso % (Auto) 0.4 Absolute Neuts (auto) 2.4 Absolute Lymphs (auto) 2.24 Total Counted Not Reportable PT 13.8 INR 1.1 APTT 26.8 Sodium 139 Potassium 3.8 Chloride 103 Carbon Dioxide 31.0 Anion Gap 5 BUN 20 H Creatinine 0.92 Estim Creat Clear Calc 83.86 Est GFR (MDRD) Af Amer 103 Est GFR (MDRD) Non-Af 85 BUN/Creatinine Ratio 21.8 H Glucose 133 H Calcium 8.7 Troponin I < 0.015 POC Glucose 01/31/18 22:22 POC Glucose 140 H Assessment/Plan All Active Problems (Last Reviewed 02/01/18 @ 06:56 by Royer Maxwell MD) Numbness and tingling of right arm (Acute) Migraine (Acute) Mental status alteration (Acute) Generalized weakness (Acute) The patient is a 77 year old M with a significant history of obstructive sleep apnea; complex migraine; left-sided stroke in 2016 and residual weakness on the left side; tongue cancer status post surgery; vascular dementia; hypertension presents with left supra orbital pain and tingling of his left upper extremity likely due to a complex migraine. Other differentials include TIA, evolving stroke or stroke. Complex migraine Blood glucose unremarkable Toradol IV X1, metoclopramide IV X1 and Benadryl po ?1 ordered. Rizatriptan as Needed. Zofran As Needed MRI/MRA Head and Neck Ordered to Rule out Stroke Aspirin ordered. Patient has allergy to atorvastatin and since this might not be a real stroke will hold off statins at this time. PT/OT/ST therapy Patient has a dysphagia screen. Okay to start cardiac diet. Permissive hypertension with labetalol for systolic blood pressure more than 220 or diastolic blood pressure more than 120. If MRI is unremarkable please resume antihypertensive medications. Neurology Consulted. Hypertension Home antihypertensive medication on hold. See above. Obstructive sleep apnea Patient and family is unsure whether he uses CPAP or BiPAP at home. The patient and family thinks it is more likely to be CPAP. CPAP ordered for tonight. If patient stays more than 1 day family will bring CPAP/BPAP DVT prophylaxis Subcutaneous heparin. Code Visit Inpatient E&M: 54719 Init Hosp L3
[2018-02-01] MEDS: DiphenhydrAMINE 25 MG Capsule PO (01:05)
[2018-02-01] MEDS: Ketorolac 15 MG/ML Vial IV (01:06)
[2018-02-01] MEDS: Metoclopramide 10 MG/2 ML Vial IV (01:06)
--- NOTE | 2018-02-01 01:17 | MRI_ITS ---
STUDY: MRA NECK WITH AND WITHOUT CONTRAST REASON FOR EXAM: Male, 77 years old. CVA -- cabral with vision change, left side numbness 01/31/18, hx prev stroke, hx tongue cancer. TECHNIQUE: 3-D neym-oy-mnrygl (TOF) imaging was performed in an 1.5 T MRI scanner. 10 ml of Gadavist was administered for the contrast enhanced images. COMPARISON: None. FINDINGS: RIGHT CAROTID ARTERIES: Normal right common carotid artery (CCA). Normal right common carotid bulb. Normal origin of the right internal carotid (ICA) artery without a hemodynamically significant stenosis. Normal visualized cervical portion of the right internal carotid artery. Normal origin of the right external carotid artery (ECA). LEFT CAROTID ARTERIES: Normal left common carotid artery (CCA). Normal left common carotid bulb. Normal origin of the left internal carotid (ICA) artery without a hemodynamically significant stenosis. Normal visualized cervical portion of the left internal carotid artery. Normal origin of the left external carotid artery (ECA). VERTEBRAL ARTERIES: Normal antegrade flow within the bilateral vertebral artery without a hemodynamically significant stenosis. MRI/MRA Neck WITH and W/O Contrast IMPRESSION: Unremarkable bilateral cervical carotid and vertebral arteries. Electronically Signed: Aneudy Hyman MD at 13:51 EDT Tel , Service support ,
--- NOTE | 2018-02-01 01:17 | MRI_ITS ---
STUDY: MRI BRAIN WITHOUT CONTRAST REASON FOR EXAM: Male, 77 years old. CVA cabral with vision change, left side numbness 01/31/18, hx prev stroke, hx tongue cancer TECHNIQUE: Standardized multiplanar fat and water weighted pulse sequences were obtained. COMPARISON: October 24, 2017 MRI, January 31, 2018 CT FINDINGS: Normal size of the ventricles and extra-axial spaces for the patient's age. There are again multiple white matter hyperintensities, distributed throughout the deep white matter tracts of the cerebral hemispheres, consistent with moderate to severe chronic white matter ischemic changes. There are old lacunar infarcts of the left centrum semiovale, bilateral kuhn radiata, right basal ganglia. There is no extra-axial fluid accumulation. Normal flow voids within the major intracranial circulation suggesting patency by spin echo criteria. Normal sella turcica, pituitary gland, infundibular stalk, optic chiasm and hypothalamus. Normal tectal plate and pineal gland. Normal midbrain, blanco and medulla. Normal cerebellum. Normal basal cisterns. Normal bilateral temporal bones. Normal bilateral internal auditory canals. No demonstrated orbital abnormality, within the constraints of a routine brain study. There is mucosal thickening of the bilateral maxillary sinuses.. Normal calvarium and skull base. Normal visualized soft tissue structures. Normal visualized upper cervical spine. MRI/Brain without Contrast IMPRESSION: No acute abnormality is demonstrated. Electronically Signed: Tiffanie Velez MD at 12:21 EDT , Service support ,
--- NOTE | 2018-02-01 01:17 | MRI_ITS ---
STUDY: MRA OF THE HEAD WITHOUT CONTRAST REASON FOR EXAM: Male, 77 years old. CVA -- cabral with vision change, left side numbness 01/31/18, hx prev stroke, hx tongue cancer. TECHNIQUE: 3-D kclp-ci-lvupxd (TOF) imaging was performed with MIPs. The study was performed unenhanced. COMPARISON: None. FINDINGS: Normal bilateral petrous carotid arteries. Normal right cavernous carotid artery with a normal supraclinoid bifurcation. Normal left cavernous carotid artery with a normal supraclinoid bifurcation. There is hypoplastic development of the right A1 segment of the anterior cerebral arteries with an atretic but intact artery. Normal left A1 segments of the anterior cerebral artery. Normal intact anterior communicating artery (ACOM). Normal bilateral A2 segments of the anterior cerebral arteries. Normal right M1 and M2 segments of the middle cerebral arteries, with a normal M1 bifurcation. Normal left M1 and M2 segments of the middle cerebral arteries, with a normal M1 bifurcation. There is non-visualization of the right posterior communicating artery (PCOM). Normal left posterior communicating artery (PCOM). Normal bilateral vertebral arteries. Normal basilar artery with a normal basilar bifurcation. The visualized bilateral superior cerebellar (SCA) arteries are normal. There is severe stenosis of the P1/P2 segment of the right posterior cerebral artery and the remaining [place] [employer] is patent. Normal left P1, P2 and visualized P3 segments of the posterior cerebral arteries. There is no demonstrated aneurysm of the unga of [place]. There is no major vessel occlusion or hemodynamically significant stenosis. There is no demonstrated abnormality of the visualized brain. MRI/MRA Head ONLY without Contrast IMPRESSION: Severe stenosis of the right [place] [employer]. Electronically Signed: Aneudy Hyman MD at 14:03 EDT Tel , Service support ,
--- NOTE | 2018-02-01 01:19 | NURSING ---
Called ED food mobile driver, Liz at this time to confirm Pt okay to come to PCU.
[2018-02-01] MEDS: Aspirin 325 MG Tablet PO (02:44)
--- NOTE | 2018-02-01 03:10 | NURSING ---
Diet order obtained at 02:30 before administering anything PO. Diet order entered later.
[2018-02-01 06:37] LABS: Anion Gap 8 (5-15); BUN 18 mg/dL (7-18); BUN/Creat Ratio 22.9 RATIO (10-20); Calcium,Total 8.8 mg/dL (8.5-10.1); Chloride 105 mmol/L (98-107); Cholesterol 141 mg/dL (200); Creatinine, Serum 0.79 mg/dL (0.70-1.30); EST Glomerular Filtration Rate 102 mL/min (>60); Est Glom Filt Rate - Afr Amer 123 mL/min (>60); Estimated Creatinine Clearance 73.07 ml/min; Glucose 107 mg/dL (74-106); High Density Lipoprotein 42 mg/dL; Potassium 3.9 mmol/L (3.5-5.1); Sodium Level 143 mmol/L (136-145); Triglycerides 123 mg/dL; Very Low Density Lipoprotein 25 mg/dL (5-40)
[2018-02-01] MEDS: Galantamine Hydrobromide 4 MG Tablet PO (08:26)
[2018-02-01] MEDS: Vitamin E 400 UNITS Capsule PO (08:27)
[2018-02-01] MEDS: Multivitamins,Ther W-Minerals Tablet 1 TABLET PO (08:27)
--- NOTE | 2018-02-01 10:42 | PCM.CONS.GEN ---
Reason for Consult Date of Consultation: 02/01/18 Reason for Consultation: cva History of Present Illness: The patient is a 77 year old M with symptoms as below, now completely back to baseline. present, wonders about rx in the future. reports last night iv toradol, reglan, benadryl, and po maxalt helped. reports at home has migraine once every other month. similar migraine phenomena have lead to several hospitalizations. per admit h&p:The patient is a 77 year old M with a significant history of obstructive sleep apnea; complex migraine; left-sided stroke in 2016 and residual weakness on the left side; rectal cancer status post surgery; vascular dementia; hypertension presents with left supra orbital pain that started the night before his admission. Associated with symptoms is a visual changes and a tingling of his left arm. His reports that she has been instructed to give patient only Tylenol when patient has a headache. Accordingly, his administered two extra strength Tylenol to patient. Patient had no relief from the two extra strength Tylenol. Later on he received an extra dose of Tylenol and still had no relief. Patient denies any speech changes or any new focal weakness. He has dysrhythmia which his attributes to tongue surgery after he had tongue cancer. As mentioned above patient also has a history of complex migraine. In the past, visual changes and tingling has been part of his aura associated with his migraine. He has had migraine since he was a teenager. Because in January 2016 when he had a stroke he had a pretty much similar symptoms, the patient presented to the emergency department for further evaluation. Emergency department talked to the Baig concerning the patient's status. Patient was noted not to be a candidate for TPA. CT of the head did not show any acute pathology. Inpatient admission was recommended. Past Medical History Past Medical History (Chronic Problems): Chronic Problems (Last Reviewed 02/01/18 @ 06:56 by Royer Maxwell MD) Vascular dementia (Chronic) Cervical spinal stenosis (Chronic) Left hemiparesis (Chronic) Tongue cancer (Chronic) Obstructive sleep apnea (Chronic) Hyperlipidemia (Chronic) Overactive bladder (Chronic) Cerebrovascular disease (Chronic) Stroke (Chronic) HTN (hypertension) (Chronic) Medical History: Medical History (Last Reviewed 02/01/18 @ 06:56 by Royer Maxwell MD) Cerebrovascular disease (Chronic) I67.9 Allergies chocolate flavor Adverse Reaction (Unknown, Verified 01/31/18 22:26) Other Pork/Porcine Containing Products Adverse Reaction (Unknown, Verified 01/31/18 22:26) Other atorvastatin [From Lipitor] Adverse Reaction (Verified 01/31/18 22:26) Other oxybutynin Adverse Reaction (Verified 01/31/18 22:26) Other Home Medications: Ambulatory Orders Medication Instructions Recorded Aspirin [Aspirin, Baby] 81 mg PO DAILY 06/12/17 Multivit-Min/Folic Acid/Biotin 1 each PO DAILY 07/30/17 [Hair, Skin and Nails Caplet] [place]-3/Dha/Epa/Fish Oil [Fish Oil 1 each PO DAILY 07/30/17 [place]-3 EC 1,200 mg] Vitamin E (Dl,Tocopheryl Acet) 400 units PO DAILY 07/30/17 [Vitamin E] Acetaminophen [Tylenol] 1,000 mg PO Q8H PRN PRN tablet 08/29/17 Amlodipine [Norvasc] 5 mg PO DAILY #30 tab 08/29/17 Galantamine Hbr [Razadyne] 4 mg PO BIDCM #60 tab 08/29/17 Lisinopril [Prinivil] 10 mg PO DAILY 02/01/18 Surgical History: total hip arthroplasty - Right hip, hemiarthroplasty., - - Tongue resection. Psychiatric History: No pertinent psych hx Lives: Spouse/ Significant Other Smoking Status: Never smoker Alcohol: None Drugs: None - *Family History Maternal History Items: No pertinent history Paternal History Items: No pertinent history Review of Systems Constitutional: Denies: Chills, Fever, Weight Change HEENT: Denies: Head Aches, Sinus Congestion, Sinus Drainage Cardiovascular: Denies: Chest Pain, Palpitations Respiratory: Denies: Cough, Shortness of breath at rest, Sputum production Gastrointestinal: Denies: Abdominal Pain, Nausea, Vomiting Genitourinary: Denies: Dysuria Musculoskeletal: Denies: Joint Pain, Joint Tenderness Skin: Denies: Rash, Wounds Neurological: Denies: Numbness, Tingling, Focal weakness Psychiatric: Denies: Anxiety, Depression, Homicidal Ideations, Suicidal Ideations Hematologic/ Lymphatic: Denies: Easy Bruising, Easy Bleeding Patient Problems: Active and Suspected Problems (Last Reviewed 02/01/18 @ 06:56 by Royer Maxwell MD) Migraine (Acute) Objective: Awake and alert, oriented ?3 Cranial nerves are intact Fully conversant Mild left upper and left lower extremity chronic hemiparesis Sensation intact - Physical Exam Vital Signs Temp Pulse Resp BP Pulse Ox 36.3 C L 64 18 155/75 H 95 02/01/18 08:25 02/01/18 08:25 02/01/18 08:25 02/01/18 08:25 02/01/18 08:25 Oxygen Delivery Method Room Air Weight: 96.2 kg Body Mass Index (BMI) 27.2 Intake and Output for Last 24 Hours 01/30/18 01/31/18 02/01/18 23:59 23:59 23:59 Intake Total 190 / 190 Output Total 750 / 750 Balance -560 / -560 Laboratory Tests Past 24 Hrs 02/01/18 02/01/18 02:00 05:25 Sodium 143 Potassium 3.9 Chloride 105 Carbon Dioxide 30.0 Anion Gap 8 BUN 18 Creatinine 0.79 Estim Creat Clear Calc 73.07 Est GFR (MDRD) Af Amer 123 Est GFR (MDRD) Non-Af 102 BUN/Creatinine Ratio 22.9 H Glucose 107 H Calcium 8.8 Troponin I < 0.015 Triglycerides 123 Cholesterol 141 LDL Cholesterol 74 VLDL Cholesterol 25 HDL Cholesterol 42 Current Medications Generic Name Dose Route Start Last Admin Trade Name Freq PRN Reason Stop Dose Admin Acetaminophen 1,000 mg 02/01/18 01:17 Tylenol PO Q8H PRN PRN MILD PAIN (1-3/10) Aspirin 81 mg 02/02/18 08:00 [facility] Galantamine Hydrobromide 4 mg 02/01/18 08:00 02/01/18 08:26 Razadyne PO 4 mg BIDCM [facility] Administration Heparin Sodium (Porcine) 5,000 unit 02/01/18 10:00 Heparin Na SC Q12 [facility] Labetalol HCl 10 mg 02/01/18 01:17 Trandate IV Q4H PRN PRN sbp>220 or dbp >120 Magnesium Hydroxide 30 ml 02/01/18 01:17 Milk Of Magnesia PO DAILY PRN Constipation Multivitamins/Minerals 1 tablet 02/01/18 08:00 02/01/18 08:27 Multivitamin With Minerals [facility] Administration Aktli-8-Daef Ethyl Esters 1 gm 02/01/18 10:00 Lovaza PO DAILY [facility] Rizatriptan Benzoate 5 mg 02/01/18 01:17 Maxalt PO DAILY PRN PRN MIGRAINE SYMPTOMS Sodium Chloride 5 - 30 ml 02/01/18 01:49 IV UD PRN SALINE FLUSH Vitamin E 400 units 02/01/18 08:00 02/01/18 08:27 Vitamin E PO 400 units DAILYCM [facility] Administration Current Home Med List Medication Instructions Recorded Confirmed Type Aspirin [Aspirin, Baby] 81 mg PO DAILY 06/12/17 02/01/18 History Multivit-Min/Folic Acid/Biotin 1 each PO DAILY 07/30/17 02/01/18 History [Hair, Skin and Nails Caplet] [place]-3/Dha/Epa/Fish Oil [Fish Oil 1 each PO DAILY 07/30/17 02/01/18 History [place]-3 EC 1,200 mg] Vitamin E (Dl,Tocopheryl Acet) 400 units PO DAILY 07/30/17 02/01/18 History [Vitamin E] Acetaminophen [Tylenol] 1,000 mg PO Q8H PRN PRN tablet 08/29/17 02/01/18 Rx Amlodipine [Norvasc] 5 mg PO DAILY #30 tab 08/29/17 02/01/18 Rx Galantamine Hbr [Razadyne] 4 mg PO BIDCM #60 tab 08/29/17 02/01/18 Rx Lisinopril [Prinivil] 10 mg PO DAILY 02/01/18 02/01/18 History MRI of the brain reviewed, no acute. MRA shows no significant stenosis. Assessment/Plan All Active Problems (Last Reviewed 02/01/18 @ 06:56 by Royer Maxwell MD) Numbness and tingling of right arm (Acute) Migraine (Acute) Mental status alteration (Acute) Generalized weakness (Acute) complex migraine: As needed Maxalt Recommend daily Depakote to prevent further events
--- NOTE | 2018-02-01 10:47 | CON.PCM_ITS ---
Reason for Consult Date of Consultation: 02/01/18 Reason for Consultation: cva History of Present Illness: The patient is a 77 year old M with symptoms as below, now completely back to baseline. present, wonders about rx in the future. reports last night iv toradol, reglan, benadryl, and po maxalt helped. reports at home has migraine once every other month. similar migraine phenomena have lead to several hospitalizations. per admit h&p:The patient is a 77 year old M with a significant history of obstructive sleep apnea; complex migraine; left-sided stroke in 2016 and residual weakness on the left side; rectal cancer status post surgery; vascular dementia; hypertension presents with left supra orbital pain that started the night before his admission. Associated with symptoms is a visual changes and a tingling of his left arm. His reports that she has been instructed to give patient only Tylenol when patient has a headache. Accordingly, his administered two extra strength Tylenol to patient. Patient had no relief from the two extra strength Tylenol. Later on he received an extra dose of Tylenol and still had no relief. Patient denies any speech changes or any new focal weakness. He has dysrhythmia which his attributes to tongue surgery after he had tongue cancer. As mentioned above patient also has a history of complex migraine. In the past , visual changes and tingling has been part of his aura associated with his migraine. He has had migraine since he was a teenager. Because in January 2016 when he had a stroke he had a pretty much similar symptoms, the patient presented to the emergency department for further evaluation. Emergency department talked to the Baig concerning the patient's status. Patient was noted not to be a candidate for TPA. CT of the head did not show any acute pathology. Inpatient admission was recommended. Past Medical History Past Medical History (Chronic Problems): Chronic Problems (Last Reviewed 02/01/18 @ 06:56 by Royer Maxwell MD) Vascular dementia (Chronic) Cervical spinal stenosis (Chronic) Left hemiparesis (Chronic) Tongue cancer (Chronic) Obstructive sleep apnea (Chronic) Hyperlipidemia (Chronic) Overactive bladder (Chronic) Cerebrovascular disease (Chronic) Stroke (Chronic) HTN (hypertension) (Chronic) Medical History: Medical History (Last Reviewed 02/01/18 @ 06:56 by Royer Maxwell MD) Cerebrovascular disease (Chronic) I67.9 Allergies chocolate flavor Adverse Reaction (Unknown, Verified 01/31/18 22:26) Other Pork/Porcine Containing Products Adverse Reaction (Unknown, Verified 01/31/18 22 :26) Other atorvastatin [From Lipitor] Adverse Reaction (Verified 01/31/18 22:26) Other oxybutynin Adverse Reaction (Verified 01/31/18 22:26) Other Home Medications: Ambulatory Orders Medication Instructions Recorded Aspirin [Aspirin, Baby] 81 mg PO DAILY 06/12/17 Multivit-Min/Folic Acid/Biotin 1 each PO DAILY 07/30/17 [Hair, Skin and Nails Caplet] [place]-3/Dha/Epa/Fish Oil [Fish Oil 1 each PO DAILY 07/30/17 [place]-3 EC 1,200 mg] Vitamin E (Dl,Tocopheryl Acet) 400 units PO DAILY 07/30/17 [Vitamin E] Acetaminophen [Tylenol] 1,000 mg PO Q8H PRN PRN tablet 08/29/17 Amlodipine [Norvasc] 5 mg PO DAILY #30 tab 08/29/17 Galantamine Hbr [Razadyne] 4 mg PO BIDCM #60 tab 08/29/17 Lisinopril [Prinivil] 10 mg PO DAILY 02/01/18 Surgical History: total hip arthroplasty - Right hip, hemiarthroplasty., - - Tongue resection. Psychiatric History: No pertinent psych hx Lives: Spouse/ Significant Other Smoking Status: Never smoker Alcohol: None Drugs: None - *Family History Maternal History Items: No pertinent history Paternal History Items: No pertinent history Review of Systems Constitutional: Denies: Chills, Fever, Weight Change HEENT: Denies: Head Aches, Sinus Congestion, Sinus Drainage Cardiovascular: Denies: Chest Pain, Palpitations Respiratory: Denies: Cough, Shortness of breath at rest, Sputum production Gastrointestinal: Denies: Abdominal Pain, Nausea, Vomiting Genitourinary: Denies: Dysuria Musculoskeletal: Denies: Joint Pain, Joint Tenderness Skin: Denies: Rash, Wounds Neurological: Denies: Numbness, Tingling, Focal weakness Psychiatric: Denies: Anxiety, Depression, Homicidal Ideations, Suicidal Ideations Hematologic/ Lymphatic: Denies: Easy Bruising, Easy Bleeding Patient Problems: Active and Suspected Problems (Last Reviewed 02/01/18 @ 06:56 by Royer Maxwell MD) Migraine (Acute) Objective: Awake and alert, oriented ?3 Cranial nerves are intact Fully conversant Mild left upper and left lower extremity chronic hemiparesis Sensation intact - Physical Exam Vital Signs Temp Pulse Resp BP Pulse Ox 36.3 C L 64 18 155/75 H 95 02/01/18 08:25 02/01/18 08:25 02/01/18 08:25 02/01/18 08:25 02/01/18 08:25 Oxygen Delivery Method Room Air Weight: 96.2 kg Body Mass Index (BMI) 27.2 Intake and Output for Last 24 Hours 01/30/18 01/31/18 02/01/18 23:59 23:59 23:59 Intake Total 190 / 190 Output Total 750 / 750 Balance -560 / -560 Laboratory Tests Past 24 Hrs 02/01/18 02/01/18 02:00 05:25 Sodium 143 Potassium 3.9 Chloride 105 Carbon Dioxide 30.0 Anion Gap 8 BUN 18 Creatinine 0.79 Estim Creat Clear Calc 73.07 Est GFR (MDRD) Af Amer 123 Est GFR (MDRD) Non-Af 102 BUN/Creatinine Ratio 22.9 H Glucose 107 H Calcium 8.8 Troponin I < 0.015 Triglycerides 123 Cholesterol 141 LDL Cholesterol 74 VLDL Cholesterol 25 HDL Cholesterol 42 Current Medications Generic Name Dose Route Start Last Admin Trade Name Freq PRN Reason Stop Dose Admin Acetaminophen 1,000 mg 02/01/18 01:17 Tylenol PO Q8H PRN PRN MILD PAIN (1-3/10) Aspirin 81 mg 02/02/18 08:00 [facility] Galantamine Hydrobromide 4 mg 02/01/18 08:00 02/01/18 08:26 Razadyne PO 4 mg BIDCM [facility] Administration Heparin Sodium (Porcine) 5,000 unit 02/01/18 10:00 Heparin Na SC Q12 [facility] Labetalol HCl 10 mg 02/01/18 01:17 Trandate IV Q4H PRN PRN sbp>220 or dbp >120 Magnesium Hydroxide 30 ml 02/01/18 01:17 Milk Of Magnesia PO DAILY PRN Constipation Multivitamins/Minerals 1 tablet 02/01/18 08:00 02/01/18 08:27 Multivitamin With Minerals [facility] Administration Udwis-4-Fsrv Ethyl Esters 1 gm 02/01/18 10:00 Lovaza PO DAILY [facility] Rizatriptan Benzoate 5 mg 02/01/18 01:17 Maxalt PO DAILY PRN PRN MIGRAINE SYMPTOMS Sodium Chloride 5 - 30 ml 02/01/18 01:49 IV UD PRN SALINE FLUSH Vitamin E 400 units 02/01/18 08:00 02/01/18 08:27 Vitamin E PO 400 units DAILYCM [facility] Administration Current Home Med List Medication Instructions Recorded Confirmed Type Aspirin [Aspirin, Baby] 81 mg PO DAILY 06/12/17 02/01/18 History Multivit-Min/Folic Acid/Biotin 1 each PO DAILY 07/30/17 02/01/18 History [Hair, Skin and Nails Caplet] [place]-3/Dha/Epa/Fish Oil [Fish Oil 1 each PO DAILY 07/30/17 02/01/18 History [place]-3 EC 1,200 mg] Vitamin E (Dl,Tocopheryl Acet) 400 units PO DAILY 07/30/17 02/01/18 History [Vitamin E] Acetaminophen [Tylenol] 1,000 mg PO Q8H PRN PRN tablet 08/29/17 02/01/18 Rx Amlodipine [Norvasc] 5 mg PO DAILY #30 tab 08/29/17 02/01/18 Rx Galantamine Hbr [Razadyne] 4 mg PO BIDCM #60 tab 08/29/17 02/01/18 Rx Lisinopril [Prinivil] 10 mg PO DAILY 02/01/18 02/01/18 History MRI of the brain reviewed, no acute. MRA shows no significant stenosis. Assessment/Plan All Active Problems (Last Reviewed 02/01/18 @ 06:56 by Royer Maxwell MD) Numbness and tingling of right arm (Acute) Migraine (Acute) Mental status alteration (Acute) Generalized weakness (Acute) complex migraine: As needed Maxalt Recommend daily Depakote to prevent further events
[2018-02-01] MEDS: Omega-3 Acid Ethyl Esters 1 GM Capsule PO (10:52)
[2018-02-01] MEDS: Heparin Injection (Vial) 5,000 UNIT/ML VIAL 5000 UNIT SC (10:52)
--- NOTE | 2018-02-01 13:05 | DCINST_ITS ---
- Discharge Diagnoses Current Active Problems: Current Active and Chronic Problems (Last Reviewed 02/01/18 @ 06:56 by Royer Maxwell MD) Migraine (Acute) You will use the following diet at home:: Cardiac - 2 g sodium daily Your food should be the consistency of: Regular Your liquids should be the consistency of: Regular/Thin Discharge Activity: Return to Normal Activity Allergies/Adverse Reactions: Allergies chocolate flavor Adverse Reaction (Unknown, Verified 01/31/18 22:26) Other Pork/Porcine Containing Products Adverse Reaction (Unknown, Verified 01/31/18 22 :26) Other atorvastatin [From Lipitor] Adverse Reaction (Verified 01/31/18 22:26) Other oxybutynin Adverse Reaction (Verified 01/31/18 22:26) Other Medications to take at Discharge Aspirin [Aspirin, Baby] 81 mg PO DAILY 06/12/17 Multivit-Min/Folic Acid/Biotin [Hair, Skin and Nails Caplet] 1 each PO DAILY 10/11 [place]-3/Dha/Epa/Fish Oil [Fish Oil [place]-3 EC 1,200 mg] 1 each PO DAILY Vitamin E (Dl,Tocopheryl Acet) [Vitamin E] 400 units PO DAILY 07/30/17 Acetaminophen [Tylenol] 1,000 mg PO Q8H PRN PRN tablet 08/29/17 Amlodipine [Norvasc] 5 mg PO DAILY #30 tab 08/29/17 Galantamine Hbr [Razadyne] 4 mg PO BIDCM #60 tab 08/29/17 Divalproex Sodium [Depakote] 500 mg PO DAILY #30 tablet. 02/01/18 Lisinopril [Prinivil] 10 mg PO DAILY 02/01/18 Rizatriptan Benzoate [Maxalt] 5 mg PO DAILY PRN PRN #10 tab 02/01/18 The following prescriptions were given: Divalproex Sodium [Depakote] 500 mg PO DAILY #30 tablet. Rizatriptan Benzoate [Maxalt] 5 mg PO DAILY PRN PRN #10 tab PRN Reason: MIGRAINE SYMPTOMS Primary Care Physician: Marcela Choi MD [Primary Care Provider] - Please follow up with your Primary Care Physician in: 1-2 weeks Test Results: Test results from this visit will be discussed in further detail at your follow- up appointment, if applicable. Please Follow Up With: Doni Baig MD - Call for appointment When: As directed
--- NOTE | 2018-02-01 13:47 | CHAPLAIN ---
Type of Pastoral Visit _x__ Initial Visit ___ Follow-up Visit ___ On-call Visit ___ General Patient Visit ___ Spiritual Assessment ___ Family Conference ___ Bereavement ___ Rapid Response ___ Code Blue ___ Other (describe below) Pastoral Care Referral From _x__ Patient ___ Family ___ Nurse ___ Physician ___ Computer Technology Instructor ___ Roll Cleaner ___ Other (describe below) Sacrament/Intervention _x__ Active listening ___ Anointing ___ Moravian ___ Bereavement ___ Communion ___ Tasha exploration ___ ___ Life review _x__ Prayer ___ Reconciliation ___ Sacrament of Sick ___ Supportive presence ___ Wedding ___ Other (describe below) Pastoral Comments
--- NOTE | 2018-02-01 15:46 | PCM.DC.SUM ---
<Aaron Ramon - Last Filed: 02/01/18 16:39> Discharge Date and Diagnosis Date of Admission: 02/01/18 Date of Discharge: 02/01/18 - Primary Discharge Diagnosis Acute migraine Stroke ruled out RAYNA HTN Hx Tongue CA HLD Hx CVA - Secondary Discharge Diagnosis Chronic Problems (Last Reviewed 02/01/18 @ 06:56 by Royer Maxwell MD) Vascular dementia (Chronic) Cervical spinal stenosis (Chronic) Left hemiparesis (Chronic) Tongue cancer (Chronic) Obstructive sleep apnea (Chronic) Hyperlipidemia (Chronic) Overactive bladder (Chronic) Cerebrovascular disease (Chronic) Stroke (Chronic) HTN (hypertension) (Chronic) Hospital Course and Treatment Imaging Results: CT/Brain/Head without Contrast IMPRESSION: Stable age-related and chronic changes of the brain similar to previous study. RAD/Chest 1 View IMPRESSION: Normal x-ray examination of the chest. MRI/Brain without Contrast IMPRESSION: No acute abnormality is demonstrated. 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 MRI/MRA Neck WITH and W/O Contrast IMPRESSION: Unremarkable bilateral cervical carotid and vertebral arteries. Consults: Safia - neuro Operations: None Procedures: None Summary of Care Provided: Physical exam on day of discharge: General: Resting comfortably NAD Psych: A/Ox3 normal affect HEENT: PEARRLA AT NC Neck: Supple NT CV: RRR no m/t/r/g/h Resp: CTA Abd: [id number] Soft NT no guarding or rigidity Ext: DP2+= no edema Skin: W/D normal turgor Lymph/Heme: No active bleeding or adenopathy Neuro: CN2-12 intact Hospital course: The patient is a 77 year old M with a hx of migraine pt of Dr. Baig, with associated numbness into his arm, hx CVA, hx tongue CA, hx htn, hld, who presented to the ER with headache, vision change and tingling of the left arm. He took 2 extra strength tylenol which usually helps his migraines. He had no relief, so came to the ER. He underwent CT of the brain which was negative. He was admitted for migraine with stroke rule out. Neuro was consulted. He was given maxalt, toradol, reglan, benadryl. He had resolution of his symptoms overnight. His MRI, MRA were negative as above. Neuro felt this was 2/2 migraine and advised started daily depakote and prn maxalt for breathrough migraine. He was discharged home in stable condition he will need to follow-up with his PCP in 1-2 weeks as well as with neuro as directed. This patient was seen by Aaron Ramon PA-C under the supervision of Doctor Lima. [] Discharge Diet: Low fat/ Low Cholesterol, 2000 mg Sodium Diet Discharge Activity: Return to Normal Activity Home Medications: Medications to take at Discharge Aspirin [Aspirin, Baby] 81 mg PO DAILY 06/12/17 Multivit-Min/Folic Acid/Biotin [Hair, Skin and Nails Caplet] 1 each PO DAILY 07/30/17 [place]-3/Dha/Epa/Fish Oil [Fish Oil [place]-3 EC 1,200 mg] 1 each PO DAILY 07/30/17 Vitamin E (Dl,Tocopheryl Acet) [Vitamin E] 400 units PO DAILY 07/30/17 Acetaminophen [Tylenol] 1,000 mg PO Q8H PRN PRN tablet 08/29/17 Amlodipine [Norvasc] 5 mg PO DAILY #30 tab 08/29/17 Galantamine Hbr [Razadyne] 4 mg PO BIDCM #60 tab 08/29/17 Divalproex Sodium [Depakote] 500 mg PO DAILY #30 tablet. 02/01/18 Lisinopril [Prinivil] 10 mg PO DAILY 02/01/18 Rizatriptan Benzoate [Maxalt] 5 mg PO DAILY PRN PRN #10 tab 02/01/18 Following Prescrptions Were Given to Patient: Divalproex Sodium [Depakote] 500 mg PO DAILY #30 tablet. Rizatriptan Benzoate [Maxalt] 5 mg PO DAILY PRN PRN #10 tab PRN Reason: MIGRAINE SYMPTOMS Primary Care Physician: Marcela Choi MD [Primary Care Provider] - Please follow up with your Primary Care Physician in: 1-2 weeks Please Follow Up With: Doni Baig MD - Call for appointment When: As directed Disposition: Home Minutes spent on discharge:: 35 Patient Condition:: Stable Medical Necessity - Tobacco Use Smoking Status: Never smoker Meaningful Use Info Meaningful Use Diagnoses (Choose all that apply): None applicable <Paty Amato - Last Filed: 02/01/18 17:46> Discharge Date and Diagnosis - Secondary Discharge Diagnosis Chronic Problems (Last Reviewed 02/01/18 @ 06:56 by Royer Maxwell MD) Vascular dementia (Chronic) Cervical spinal stenosis (Chronic) Left hemiparesis (Chronic) Tongue cancer (Chronic) Obstructive sleep apnea (Chronic) Hyperlipidemia (Chronic) Overactive bladder (Chronic) Cerebrovascular disease (Chronic) Stroke (Chronic) HTN (hypertension) (Chronic) Hospital Course and Treatment Summary of Care Provided: Patient seen by Aaron Ramon PA-C under my supervision The patient is a 77 year old M with a history of migraines and a previous history of CVA, as well as hypertension hyperlipidemia and tongue CA. He had was admitted by the ED with a complaint of headache, change in vision and tingling of his left arm. He took 2 extra strength Tylenol which usually help with his migraine but had no relief. They are concerned because according to his when he had a stroke this was how it started so they brought him to the ED. CT of the brain was negative and MRI and MRA sent subsequently done of the brain and the neck were negative. He was admitted and managed for stroke to rule out migraines. Neurology was consulted and thought that this was due to migraines. He was given Toradol, Reglan and Maxalt as well as Benadryl loss in the hospital and was prescribed Depakote for migraine. Patient remained stable and was discharged home. He is to follow-up with his primary care doctor in 1-2 weeks and with neurology as well. Patient seen and examined prior to discharge. He had no complaints and felt well. He denied any fever, chills, cough, chest pain, SOB, abdominal pain, diarrhea or vomiting. Review of systems was otherwise negative. o/e: Vital Signs Height 6 ft 2 in Weight: 212 lb 1.355 oz Weight in Pounds 212.1 lbs Pulse Ox 97 Temperature 97.5 F Pulse Rate 61 Respiratory Rate 18 Blood Pressure 146/75 Blood Pressure Position Semi-Fowlers General: Alert, Oriented x3, Cooperative HEENT: Atraumatic, PERRLA, EOMI, Normocephalic Neck: Supple, No JVD, Negative Carotid Bruits Lungs: Clear to auscultation, Normal air movement Cardiovascular: Murmur - Prominent at the aortic area. Patient and family report that this is chronic., Tachycardic - Mild Abdomen: Bowel Sounds Present, Soft, Non Tender Extremities: No edema, Capillary Refill Less than 3 Seconds Skin: No rashes, No breakdown Musculoskeletal: No Tenderness to Palpation of Joints or Extremities Neurological: normal power and tone. Plan as stated above. Patient given scripts for depakot and rizatriptan (maxalt) Agree with Aaron Ramon PA-C's note and assessment and plan. Code Visit Inpatient E&M: 89634 Disch Hosp
== END 2018-02-01 13:19 | disposition home or self-care (01) ==
LOC: ED 23:01 → PCU 02-01 01:14
PROVIDERS: Admitting Provider Hospitalist; Emergency Provider Emergency Medicine; Family Provider Family Medicine; PCP Family Medicine; Visit Provider Student in an Organized Health Care Education/Training Program
DX: G43.909 Migraine, unspecified, not intractable, without status migrainosus (principal); G47.33 Obstructive sleep apnea (adult) (pediatric); E78.5 Hyperlipidemia, unspecified; I10 Essential (primary) hypertension; Z85.810 Personal history of malignant neoplasm of tongue; I69.354 Hemiplegia and hemiparesis following cerebral infarction affecting left non-dominant side; N32.81 Overactive bladder; Z85.048 Personal history of other malignant neoplasm of rectum, rectosigmoid junction, and anus; F01.50 Vascular dementia, unspecified severity, without behavioral disturbance, psychotic disturbance, mood disturbance, and anxiety; R20.2 Paresthesia of skin; M43.6 Torticollis; Z79.899 Other long term (current) drug therapy; Z79.52 Long term (current) use of systemic steroids; Z79.84 Long term (current) use of oral hypoglycemic drugs; R41.82 Altered mental status, unspecified; R53.1 Weakness; I66.3 Occlusion and stenosis of cerebellar arteries
CPT/HCPCS: 36415; 70450; 70544; 70549; 70551; 71045; 80048; 80061; 82962; 84484; 85025; 85610; 85730; 92523; 93005; 96372; 96374; 96375; 97162; 97166; 97802; 99218; 99284; A9585; A4216; G0378; G8978; G8979; G8987; G8988; G9168; G9169; G9170

== ENCOUNTER 2018-02-20 22:08 | Emergency (ER) | payer BC, SELFPAY ==
[2018-02-20 22:08] VITALS: BP 152/65; PULSE 65; RESP 18; TEMP 36.6; O2SAT 98; BMI 30.4
[2018-02-20] MEDS: DiphenhydrAMINE 50 MG/ML Syringe 12.5 MG IV (22:50)
[2018-02-20] MEDS: 0.9% Normal Saline 1,000 ML 999 ML IV (22:50)
[2018-02-20] MEDS: Ketorolac 30 MG/ML Syringe IV (22:50)
[2018-02-20] MEDS: Metoclopramide 10 MG/2 ML Vial 5 MG IV (22:50)
[2018-02-20 23:33] VITALS: BP 144/83; O2SAT 98
[2018-02-20 23:33] LABS: Valproic Acid (Depakene) Level 51 ug/mL (50-100)
--- NOTE | 2018-02-21 00:21 | ED.DCSUM_ITS ---
- ER Visit Summary Date of Service: 02/21/18 Chief Complaint: Headache History of Present Illness: The patient is a 77 M with history of CVA and left- sided weakness, migraines, hypertension, high cholesterol, tongue cancer, spinal stenosis. Patient reports onset of migraine around 6 PM this evening. He describes onset of visual aura followed by generalized migraine. He had some mild light sensitivity. He was admitted to the hospital earlier this month for the same. He was started on Depakote daily and Maxalt for as needed use. Patient did take Maxalt around 8 PM with minimal to no improvement in his symptoms. Patient is scheduled to follow-up with Dr. Baig in 3 days. Physical Examination: Vital signs remarkable for blood pressure 152/65, otherwise unremarkable. Patient sitting upright in bed no acute distress. Head neck examination reveals no sign of trauma. Heart is regular rate and rhythm. He does have a 3/6 murmur noted. Lung sounds are clear. Abdomen is soft and nontender. Neuro exam reveals minimal left-sided weakness that is chronic from his prior stroke. He denies any new symptoms. Test Results: CT head shows no acute process. Chronic right basal ganglia lacunar infarcts are noted. Depakote level is 51. Emergency Department Course and Treatment: Patient was given Toradol, Reglan, Benadryl, and IV fluids. On repeat evaluation headache is at least 50% improved. He will be discharged home with family at this time. They will follow-up with Dr. Baig on Monday as scheduled. Treatment Plan: [] Disposition: Discharge Impression: Migraine, improved This note was generated with [employer] dictation software. It may contain incorrect words, spelling, and punctuation that were not noted in review of the chart prior to signing ED Disposition - Plan for ED Patient: Disposition: Home or Assisted Living Chief Complaint: Headache Instructions: ED Headache Migraine Referrals: Doni Baig MD [STAFF PHYSICIAN] - Keep Rere appointment Marcela Choi MD [Primary Care Provider] -
--- NOTE | 2018-02-21 00:21 | ED.DEP ---
ED Disposition - Plan for ED Patient: Disposition: Home or Assisted Living Chief Complaint: Headache Instructions: ED Headache Migraine Referrals: Marcela Choi MD [Primary Care Provider] - Doni Baig MD [STAFF PHYSICIAN] - Keep Rere appointment
[2018-02-21 00:49] VITALS: BP 139/74; PULSE 60; RESP 18; O2SAT 97
== END 2018-02-21 00:51 | disposition home or self-care (01) ==
PROVIDERS: Emergency Provider Emergency Medicine; Family Provider Family Medicine; PCP Family Medicine
DX: G43.909 Migraine, unspecified, not intractable, without status migrainosus (principal); I69.354 Hemiplegia and hemiparesis following cerebral infarction affecting left non-dominant side; I10 Essential (primary) hypertension; E78.00 Pure hypercholesterolemia, unspecified; F03.90 Unspecified dementia, unspecified severity, without behavioral disturbance, psychotic disturbance, mood disturbance, and anxiety; Z85.810 Personal history of malignant neoplasm of tongue; Z79.82 Long term (current) use of aspirin; Z79.899 Other long term (current) drug therapy
CPT/HCPCS: 70450; 80164; 96361; 96374; 96375; 96376; 99283; J7030; A4216

== ENCOUNTER → 2018-03-01 | Outpatient (CLI) | payer BC, MEDICARE, SELFPAY ==
[2018-03-01 17:44] LABS: Absolute Neutrophil Count 2.8 X10^3/uL (2.0-7.7); Basophil# 0.02 X10^3/uL; Basophil% 0.4 % (0-1); Eosinophil# 0.11 X10^3/uL; Eosinophils% 2.2 % (0-5); Hematocrit 40.5 % (40-54); Hemoglobin 13.4 g/dl (13.0-16.5); Lymphocyte % 31.9 % (19-41); Mean Corp Hgb Conc 33.1 g/gl (32-36); Mean Corpuscular Hgb 30.3 pg (27.0-32.0); Mean Corpuscular Volume 91.6 fL (80-94); Mean Platelet Vol. 10.5 fl (6.2-12.0); Monocyte# 0.51 X10^3/uL; Monocyte% 10.2 % (0-10); Neutrophil # 2.77 X10^3/uL (2.7-7.7); Neutrophil % 55.1 % (47-70); Platelet Count 161 K/mm3 (150-450); RBC Distribution Width CV 12.8 % (11.6-14.6); RBC Distribution Width SD 42.1 fl (35.1-43.9); Red Blood Count 4.42 M/mm3 (4.6-6.2)
[2018-03-01 18:04] LABS: POSITIVE COUNT NO; POSITIVE DIFFERENTIAL NO; POSITIVE MORPHOLOGY NO
[2018-03-01 18:32] LABS: ALB/GLOB Ratio 0.9 RATIO (0.9-2.4); AST(SGOT) 34 U/L (15-37); Alanine Aminotransfer ALT/SGPT 45 U/L (16-61); Albumin, Serum 3.8 g/dL (3.2-5.0); Alkaline Phosphatase 72 U/L (45-117); Anion Gap 8 (5-15); BUN 22 mg/dL (7-18); BUN/Creat Ratio 25.6 RATIO (10-20); Calcium,Total 8.9 mg/dL (8.5-10.1); Chloride 101 mmol/L (98-107); Cholesterol 155 mg/dL (200); Creatinine, Serum 0.86 mg/dL (0.70-1.30); EST Glomerular Filtration Rate 92 mL/min (>60); Est Glom Filt Rate - Afr Amer 111 mL/min (>60); Globulin 4.2 g/dL (2.2-4.2); Glucose 94 mg/dL (74-106); High Density Lipoprotein 39 mg/dL; Sodium Level 139 mmol/L (136-145); Triglycerides 190 mg/dL; Very Low Density Lipoprotein 38 mg/dL (5-40)
[2018-03-02 12:13] LABS: Vitamin B12 1179 pg/mL (211-911); Vitamin D,25 Hydroxy 39.8 ng/mL (29.95-100.01)
== END | disposition home or self-care (01) ==
LOC: MFPLAB 16:14
PROVIDERS: Family Provider Family Medicine; PCP Family Medicine; Visit Provider Family Medicine
DX: E53.8 Deficiency of other specified B group vitamins (principal); E55.9 Vitamin D deficiency, unspecified; I10 Essential (primary) hypertension; Z86.73 Personal history of transient ischemic attack (TIA), and cerebral infarction without residual deficits
CPT/HCPCS: 36415; 80053; 80061; 82306; 82607; 82746; 84443; 85025

== ENCOUNTER → 2018-03-02 13:46 | Outpatient (CLI) | payer BC, MEDICARE, SELFPAY ==
[2018-03-02 13:52] LABS: Bacteria 0 SEEN /hpf (None Seen); Mucous, Urine 0 SEEN /hpf (<or=2+); Red Blood Cells-Urine 0 SEEN /hpf (0-5); Squamous Epithelial Cells - UA 0 SEEN /hpf (0-5); White Blood Cells 0 SEEN /hpf (0-5)
[2018-03-02 14:32] LABS: Color, Urine Yellow (Yellow); Glucose, Dipstick Normal (Normal); Ketone-Dipstick Negative (Negative); Leukocyte Esterase-Dipstick Negative /ul (Negative); Nitrite-Dipstick Negative (Negative); Occult Blood-Urine Negative /ul (Negative); Protein-Dipstick Negative (Negative); Specific Gravity, Urine 1.015 (1.002-1.030); Urine Bilirubin Dipstick Negative (Negative); Urine Clarity Clear (Clear); Urine Urobilinogen Normal (Normal)
== END ==
PROVIDERS: Family Provider Family Medicine; PCP Family Medicine; Visit Provider Family Medicine
DX: E53.8 Deficiency of other specified B group vitamins (principal); E55.9 Vitamin D deficiency, unspecified; I10 Essential (primary) hypertension; Z86.73 Personal history of transient ischemic attack (TIA), and cerebral infarction without residual deficits
CPT/HCPCS: 81001

== ENCOUNTER → 2018-03-07 12:52 | Outpatient (CLI) | payer BC, MEDICARE, SELFPAY ==
--- NOTE | 2018-03-07 12:56 | ECHOD_ITS ---
Reason For Study: Murmur Procedure This was a 2D Doppler, Color Flow transthoracic echocardiogram. Exam performed in department. Left Ventricle Mild concentric left ventricular hypertrophy. The estimated ejection fraction is 75 %. Stage 1 diastolic dysfunction. No regional wall motion abnormalities noted. Right Ventricle Normal size and thickness. Normal systolic function. Atria Normal left atrium. Normal right atrium. Normal atrial septum. Mitral Valve The mitral valve is structurally normal. No prolapse or stenosis seen. Tricuspid Valve Normal tricuspid valve. Trivial tricuspid valve insufficiency. Right ventricular systolic pressure estimated to be 23 mmHg. Aortic Valve Trisinus/trileaflet aortic valve. Mild focal aortic valve thickening. Mild aortic stenosis. Pulmonic Valve Normal pulmonic valve. Great Vessels Normal aortic root. Normal arch. Normal inferior vena cava. Inferior vena cava collapse with respiration. Pericardium/Pleural No pericardial effusion. MMode/2D Measurements & Calculations LVIDd: 3.8 cm IVSd: 1.5 cm LVOT diam: 2.0 cm LVIDs: 2.1 cm LVPWd: 1.2 cm LVOT area: 3.0 cm2 RVDd: 4.1 cm FS: 43.7 % Ao root diam: 3.8 cm LAV(MOD-bp): 55.8 ml LA A4 area: 17.1 cm2 LA dimension: 3.7 cm LAV(MOD-bp) Indexed: 24.6 ml/m2 LAV(MOD-sp2): 66.2 ml LAV(MOD-sp4): 47.7 ml RA A4 area: 14.1 cm2 Doppler Measurements & Calculations MV E max lewis: 55.9 cm/sec Lat Peak E' Leiws: 9.3 cm/sec Med Peak E' Lewis: 8.9 cm/sec MV A max lewis: 72.8 cm/sec E/E' lat: 6.0 E/E' med: 6.3 MV E/A: 0.77 MV V2 max: 89.6 cm/sec MV P1/2t max lewis: 59.5 cm/sec Ao V2 max: 196.7 cm/sec MV max P.2 mmHg MV P1/2t: 123.6 msec Ao max P.5 mmHg MV V2 mean: 40.8 cm/sec MV dec slope: 141.0 cm/sec2 Ao V2 mean: 126.8 cm/sec MV mean P.80 mmHg MVA(P1/2t): 1.8 cm2 Ao mean P.7 mmHg MV V2 VTI: 27.9 cm Ao V2 VTI: 39.2 cm MVA(VTI): 2.1 cm2 MOHINI(I,D): 1.5 cm2 MOHINI(V,D): 1.4 cm2 LV V1 max: 91.8 cm/sec SV(LVOT): 59.3 ml PA V2 max: 144.5 cm/sec LV V1 max P.4 mmHg LV V1 mean P.5 mmHg LV V1 mean: 56.7 cm/sec LV V1 VTI: 19.5 cm TR max lewis: 215.0 cm/sec TR max P.5 mmHg Interpretation Summary Mild concentric left ventricular hypertrophy. The estimated ejection fraction is 75 %. Stage 1 diastolic dysfunction. Trivial tricuspid valve insufficiency. Right ventricular systolic pressure estimated to be 23 mmHg. Mild aortic stenosis. Compared to echo report dated 07/31/2017, no appreciable changes noted. The study was technically difficult. Ordering Physician: Gildardo Catherine Referring Physician: Gildardo Catherine Performed By: Santosh Verdugo RCS
== END ==
PROVIDERS: Family Provider Family Medicine; PCP Family Medicine; Visit Provider Family Medicine
DX: R01.1 Cardiac murmur, unspecified (principal)
CPT/HCPCS: 93306

== ENCOUNTER → 2018-06-28 08:02 | Outpatient (CLI) | payer BC, MEDICARE, SELFPAY ==
[2018-06-28 08:02] VITALS: BMI 24.6
[2018-06-28 10:05] LABS: Absolute Lymphocyte Count 1.37 X10^3/ul (0.83-4.51); Absolute Neutrophil Count 2.7 X10^3/uL (2.0-7.7); Basophil# 0.04 X10^3/uL; Basophil% 0.9 % (0-1); Eosinophils% 2.2 % (0-5); Hematocrit 39.9 % (40-54); Hemoglobin 13.1 g/dl (13.0-16.5); Lymphocyte # 1.37 X10^3/ul (4.0); Mean Corp Hgb Conc 32.8 g/gl (32-36); Mean Corpuscular Hgb 30.5 pg (27.0-32.0); Mean Corpuscular Volume 92.8 fL (80-94); Mean Platelet Vol. 10.8 fl (6.2-12.0); Monocyte# 0.36 X10^3/uL; Monocyte% 7.9 % (0-10); Neutrophil # 2.69 X10^3/uL (2.7-7.7); Platelet Count 151 K/mm3 (150-450); RBC Distribution Width SD 42.9 fl (35.1-43.9); White Blood Count 4.6 K/mm3 (4.4-11.0)
[2018-06-28 10:13] LABS: POSITIVE COUNT NO; POSITIVE DIFFERENTIAL NO; POSITIVE MORPHOLOGY NO
[2018-06-28 10:32] LABS: BUN 17 mg/dL (7-18); Creatinine, Serum 0.84 mg/dL (0.70-1.30); Glucose 115 mg/dL (74-106)
[2018-06-28 10:33] LABS: ALB/GLOB Ratio 0.9 RATIO (0.9-2.4); AST(SGOT) 18 U/L (15-37); Alanine Aminotransfer ALT/SGPT 26 U/L (16-61); Albumin, Serum 3.6 g/dL (3.2-5.0); Alkaline Phosphatase 76 U/L (45-117); Anion Gap 8 (5-15); BUN/Creat Ratio 20.3 RATIO (10-20); Calcium,Total 8.8 mg/dL (8.5-10.1); Chloride 104 mmol/L (98-107); Cholesterol 126 mg/dL (200); EST Glomerular Filtration Rate 95 mL/min (>60); Est Glom Filt Rate - Afr Amer 115 mL/min (>60); High Density Lipoprotein 46 mg/dL; Potassium 3.8 mmol/L (3.5-5.1); Protein, Total 7.6 g/dL (6.4-8.2); Sodium Level 140 mmol/L (136-145); Triglycerides 123 mg/dL; Very Low Density Lipoprotein 25 mg/dL (5-40)
[2018-06-28 10:34] LABS: Vitamin B12 977 pg/mL (211-911); Vitamin D,25 Hydroxy 35.6 ng/mL (29.95-100.01)
[2018-06-28 17:29] LABS: Hemoglobin A1c 6.4 % (4.2-6.3)
== END ==
PROVIDERS: Family Provider Family Medicine; PCP Family Medicine; Visit Provider Family Medicine
DX: E55.9 Vitamin D deficiency, unspecified (principal); E53.8 Deficiency of other specified B group vitamins; I10 Essential (primary) hypertension; Z86.73 Personal history of transient ischemic attack (TIA), and cerebral infarction without residual deficits
CPT/HCPCS: 36415; 80053; 80061; 82306; 82607; 83036; 85025

== ENCOUNTER → 2018-10-24 | Outpatient (CLI) | payer BC, MEDICARE, SELFPAY ==
[2018-06-28 08:02] VITALS: BMI 24.6
[2018-10-24 17:44] LABS: ALB/GLOB Ratio 1.1 RATIO (0.9-2.4); AST(SGOT) 21 U/L (15-37); Alanine Aminotransfer ALT/SGPT 23 U/L (16-61); Albumin, Serum 4.1 g/dL (3.2-5.0); Alkaline Phosphatase 90 U/L (45-117); Anion Gap 3 (5-15); BUN 18 mg/dL (7-18); BUN/Creat Ratio 25.1 RATIO (10-20); Calcium,Total 9.2 mg/dL (8.5-10.1); Chloride 103 mmol/L (98-107); Creatinine, Serum 0.72 mg/dL (0.70-1.30); EST Glomerular Filtration Rate 113 mL/min (>60); Est Glom Filt Rate - Afr Amer 137 mL/min (>60); Globulin 3.9 g/dL (2.2-4.2); Glucose 92 mg/dL (74-106); Potassium 4.4 mmol/L (3.5-5.1); Sodium Level 136 mmol/L (136-145)
[2018-10-24 18:02] LABS: Vitamin B12 858 pg/mL (211-911); Vitamin D,25 Hydroxy 22.9 ng/mL (29.95-100.01)
== END | disposition home or self-care (01) ==
LOC: MFPLAB 15:18
PROVIDERS: Family Provider Family Medicine; PCP Family Medicine; Referring Provider Family Medicine; Visit Provider Family Medicine
DX: I10 Essential (primary) hypertension (principal); R73.02 Impaired glucose tolerance (oral); E55.9 Vitamin D deficiency, unspecified; E53.8 Deficiency of other specified B group vitamins
CPT/HCPCS: 36415; 80053; 82306; 82607; 83036

== ENCOUNTER → 2019-02-08 08:48 | Outpatient (CLI) | payer BC, SELFPAY ==
[2018-06-28 08:02] VITALS: BMI 24.6
[2019-02-08 10:31] LABS: ALB/GLOB Ratio 0.8 RATIO (0.9-2.4); AST(SGOT) 21 U/L (15-37); Alanine Aminotransfer ALT/SGPT 25 U/L (16-61); Albumin, Serum 3.5 g/dL (3.2-5.0); Alkaline Phosphatase 73 U/L (45-117); Anion Gap 3 (5-15); BUN 16 mg/dL (7-18); BUN/Creat Ratio 18.4 RATIO (10-20); Calcium,Total 8.9 mg/dL (8.5-10.1); Chloride 105 mmol/L (98-107); Cholesterol 127 mg/dL (200); Creatinine, Serum 0.87 mg/dL (0.70-1.30); EST Glomerular Filtration Rate 90 mL/min (>60); Est Glom Filt Rate - Afr Amer 109 mL/min (>60); Globulin 4.2 g/dL (2.2-4.2); Glucose 113 mg/dL (74-106); High Density Lipoprotein 52 mg/dL; Protein, Total 7.7 g/dL (6.4-8.2); Sodium Level 138 mmol/L (136-145); Triglycerides 100 mg/dL; Very Low Density Lipoprotein 20 mg/dL (5-40)
[2019-02-08 11:06] LABS: Vitamin B12 895 pg/mL (211-911); Vitamin D,25 Hydroxy 62.7 ng/mL (29.95-100.01)
[2019-02-08 12:23] LABS: Hemoglobin A1c 5.8 % (4.2-6.3)
== END ==
PROVIDERS: Family Provider Family Medicine; PCP Family Medicine; Referring Provider Family Medicine; Visit Provider Family Medicine
DX: I10 Essential (primary) hypertension (principal); E53.8 Deficiency of other specified B group vitamins; E55.9 Vitamin D deficiency, unspecified; R73.02 Impaired glucose tolerance (oral); Z86.73 Personal history of transient ischemic attack (TIA), and cerebral infarction without residual deficits
CPT/HCPCS: 36415; 80053; 80061; 82306; 82607; 83036

== ENCOUNTER 2019-04-24 12:00 | Outpatient (RCR) | payer BC, SELFPAY ==
[2018-06-28 08:02] VITALS: BMI 24.6
--- NOTE | 2018-12-31 10:28 | HP.PTEVAL_ITS ---
Patient's Visit Information CAITLIN REID is a 78 year old M referred to Physical Therapy by JANINA Prajapati with a diagnosis of CVA, weakness. Date of Evaluation: 12/20/18 Physical Therapist: Kike Kessler DPT - Visit Plan Frequency: 2-3x /Week Duration: 4-6 Weeks Plan: Start with BLE and ankle strengthening. Add in functional strengthening and balaance training. PRogress gait with least restrictive/safe device. - Subjective Findings: Pt. is here today for his initial evaluation with diagnosis of CVA and postural weakness. Pt. had a CVA a fedw years ago and was doing well, until last year when he was sick again. Pt. reports having increased difficulty since, but is slowly getting back to previous activities. Pt. arrives today with spouse, he is using FWW. Pt. reports no pain currently. Pt. has been walking, but limited distance, until being sick again he had progressed to a cane, but is currently using a walker for safety. Pt. reports no R hip pain currently. Pt. and spouse are hopeful to increase overall endurance, balance and strength in order to get back to all previous activities without limitations. - Objective POSTURE: Pt. has rounded shoulders, increased thoracic kyphosis. Pt. has FH as well. Pt. tends to have increased R lateral lean with use of walker to stabilize. Pt. is able to stand without AD. PALAPTION: No pain with palpation. NEURO: normal sensation and DTR. Pt. does use an AFO. ROM: PT. has tight HS, tight hip flexors bilat. Decreased lumabr flexion and extension. Decreased thoracic extension with tight anterior chest. MMT: Pt. has good strength throughout hip BLEs, 4/5 general ankle strength. 4/5 hip abd strength bilat. GAIT: Pt. is able to walk with FWW, adjusted height increased proper thoracic posture. Pt. is also able to ambulate with single point cane, but has increased difficulty advancing his LE and increased lateral sway. Pt. is not appropraite to ambulate with cane at this point intime. - Balance Scores Functional Gait Assessment Score: 6 % Disability: 80.0000 - Goals Goal 1:: Pt. to be I with HEP. Goal Time Frame: 4-6 Weeks Goal 2:: Pt. to negotiate steps with 1 HR with good/safe pattern, independently. Goal Time Frame: 4-6 Weeks Goal 3:: Pt. to have increased FGA to 05/25 indicating increased stability in stance. Goal Time Frame: 4-6 Weeks Goal 4:: Pt. to have increased BLE strength by 1/2 of all effected musculature. Goal Time Frame: 4-6 Weeks Goal 5:: Pt. to be able to ambulate on all surfaces including uneven ground outside with least restrictive device. Goal Time Frame: 4-6 Weeks - Rehabilitation Potential Physical Therapy Diagnosis: Pt. has signs and symptoms consistent with weakness and imbalance after CVA. Pt. presents with decreased stability with gait, ankle/hip strength and decraesed dynamic balance. Pt. would benefit from PT to incerase stability/strength. Rehabilitation Potential: Good - Anticipated Interventions Patient/Client Instruction: Educate patient on: Condition, Plan of Care, Risk Factors, Benefits of Fitness Program For the Purpose of:: To improve decision making, To facilitate caregiver knowledge, To improve self management, To prevent re-injury, To improve ability to perform tasks related to life management, To improve tolerance to ADL's Therapeutic Exercise to Include: Strength training, Power training, Endurance training, Balance training, Postural training, Flexibilty training, Gait and locomotor training, Passive ROM, Active ROM, Dynamic Lumbar Stabilization, Scapular Strength/Stabilization For the Purpose of:: To increase ROM, To improve nutrient delivery to tissue, To increase oxygenation perfusion, To improve muscle performance and motor functio n, To decrease soft tissue restriction, To increase flexibility/ROM, To improve endurance, To improve balance Thank you for the opportunity to evaluate your patient. For Medicare and Medicare HMO plans, please review the plan of care and approve it. It will need to be FAXED BACK to us at [phone] for Medicare purposes. For Medicare only, by signing this I certify the plan of care. Please let me know if there are questions or concerns regarding this plan of care. Physician Signature: Date:____
--- NOTE | 2019-05-10 10:58 | HP.PTREVAL ---
Jennifer Duque, CHAD-C, It has been my pleasure to treat CAITLIN REID over the last 8 visits for CVA, weakness. Please see the progress note below for an update on the physical therapy plan of care! Subjective: Pt. and spouse reports no falls. Pt. has been HEP compliant without issues. Pt. reports no pain. Objective/Function: ROM: Pt. has tight bilateral HS. MMT: RLE- 4+/5 throughout, except 4/5 hip abd and hip extension. LLE- 4/5 throughotu, except knee flexion/ext 4+/5 and hip exte 4+/5. GAIT: Pt. ambulate with FWW without issues. Pt. was able to ambulate 778' prior to requiring rest. Pt. is able to ambulate without AD, but has increased lateral postural sway. Pt. has occassional stepping stratagy to correct and has often standing pauses to straighten up. STAIRS: Pt. is able to negotiate with1 HR with step to pattern, but does have some difficulty with controlled asending on RLE. FGA 10/30. Pt. has increased difficurty with eyes closed, retro walking, narrow and head turns without AD. Plan Plan: Cont. with POC. Focus on ambulation with LRD and control/stability of B hips with gait. Goals Goal 1:: Pt. to be I with HEP. Goal Time Frame: 4-6 Weeks Goal Progress: Progressing Goal 2:: Pt. to negotiate steps with 1 HR with good/safe pattern, independently. Goal Time Frame: 4-6 Weeks Goal Progress: Progressing Goal 3:: Pt. to have increased FGA to 11/30 indicating increased stability in stance. Goal Time Frame: 4-6 Weeks Goal Progress: Progressing Goal 4:: Pt. to have increased BLE strength by 1/2 of all effected musculature. Goal Time Frame: 4-6 Weeks Goal Progress: Progressing Goal 5:: Pt. to be able to ambulate on all surfaces including uneven ground outside with least restrictive device. Goal Time Frame: 4-6 Weeks Goal Progress: Progressing Anticipated Interventions Patient/Client Instruction: Educate patient on: Condition, Plan of Care, Risk Factors, Benefits of Fitness Program For the Purpose of:: To improve decision making, To facilitate caregiver knowledge, To improve self management, To prevent re-injury, To improve ability to perform tasks related to life management, To improve tolerance to ADL's Therapeutic Exercise to Include: Strength training, Power training, Endurance training, Balance training, Postural training, Flexibilty training, Gait and locomotor training, Passive ROM, Active ROM, Dynamic Lumbar Stabilization, Scapular Strength/Stabilization For the Purpose of:: To increase ROM, To improve nutrient delivery to tissue, To increase oxygenation perfusion, To improve muscle performance and motor function, To decrease soft tissue restriction, To increase flexibility/ROM, To improve endurance, To improve balance Please do not hesitate to contact me at [phone] by phone or if you have questions or concerns regarding this new plan of care! Sincerely, CARYN TranT
--- NOTE | 2019-05-13 08:18 | HP.PT.NRP ---
HP - Discharge Summary (1) - Patient Information CAITLIN REID was seen in my office for initial evaluation on 12/20/18. The following Plan of Care was established for this patient: Initial Frequency: 2-3x /Week Initial Duration: 4-6 Weeks - Anticipated Interventions Patient/Client Instruction: Educate patient on: Condition, Plan of Care, Risk Factors, Benefits of Fitness Program For the Purpose of:: To improve decision making, To facilitate caregiver knowledge, To improve self management, To prevent re-injury, To improve ability to perform tasks related to life management, To improve tolerance to ADL's Therapeutic Exercise to Include: Strength training, Power training, Endurance training, Balance training, Postural training, Flexibilty training, Gait and locomotor training, Passive ROM, Active ROM, Dynamic Lumbar Stabilization, Scapular Strength/Stabilization For the Purpose of:: To increase ROM, To improve nutrient delivery to tissue, To increase oxygenation perfusion, To improve muscle performance and motor function, To decrease soft tissue restriction, To increase flexibility/ROM, To improve endurance, To improve balance This patient was last seen in our office 04/24/19. Pertinent comments regarding their Physical therapy will appear below: Pt. has not been seen in several weeks in outpatient PT. Pt. will be DC from PT at this point in time. At this point I will be discontinuing this patient from physical therapy. I would be happy to see this patient again in the future if found appropriate by the physician. Thank you! Kike Kessler DPT
== END 2019-04-24 19:00 | disposition home or self-care (01) ==
LOC: PT 12:00
PROVIDERS: Family Provider Family Medicine; PCP Family Medicine; Referring Provider Nurse Practitioner Family; Visit Provider Nurse Practitioner Family
DX: Z86.73 Personal history of transient ischemic attack (TIA), and cerebral infarction without residual deficits (principal); R53.1 Weakness
CPT/HCPCS: 97110; 97161; 97530

== ENCOUNTER 2019-05-11 13:05 | Inpatient (IN) | payer MEDICARE, BC, SELFPAY ==
[2018-06-28 08:02] VITALS: BMI 24.6
[2019-05-11 13:06] VITALS: BP 129/64; PULSE 67; RESP 18; TEMP 36.6; O2SAT 97; BMI 26.5
--- NOTE | 2019-05-11 13:19 | RAD_ITS ---
STUDY: X-RAY - PELVIS AND RIGHT HIP REASON FOR EXAM: Male, 79 years old. Fall TECHNIQUE: 4 views of the pelvis and right hip. COMPARISON: 06/09/2017 FINDINGS: There are stable postoperative changes from right hip arthroplasty. The hardware is intact and alignment is satisfactory. There is a minimally fracture of the greater trochanter of the right femur at its junction with the femoral shaft. The remainder the visualized osseous structures are intact. RAD/HIP, UNI W/ Pelvis 2-3 Views IMPRESSION: Minimally displaced fracture of the right greater trochanter at its junction with the femoral shaft. Stable postsurgical changes from right hip arthroplasty with intact hardware and satisfactory alignment. Electronically Signed: Emigdio Leo, at 14:54 EST Tel , Service support ,
[2019-05-11 14:25] LABS: Absolute Neutrophil Count 6.3 X10^3/uL (2.0-7.7); Basophil# 0.04 X10^3/uL; Basophil% 0.5 % (0-1); Eosinophil# 0.02 X10^3/uL; Eosinophils% 0.2 % (0-5); Hematocrit 41.7 % (40-54); Hemoglobin 13.4 g/dL (13.0-16.5); Lymphocyte % 16.1 % (19-41); Mean Corp Hgb Conc 32.1 g/dL (32-36); Mean Corpuscular Hgb 30.2 pg (27.0-32.0); Mean Corpuscular Volume 94.1 fL (80-94); Mean Platelet Vol. 10.3 fl (6.2-12.0); Monocyte# 0.41 X10^3/uL; Monocyte% 5.1 % (0-10); NRBC Flagged by Analyzer 0 % (0-5); Neutrophil # 6.28 X10^3/uL (2.7-7.7); Neutrophil % 77.6 % (47-70); Platelet Count 161 K/mm3 (150-450); RBC Distribution Width SD 44.8 fl (35.1-43.9); Red Blood Count 4.43 M/mm3 (4.6-6.2); White Blood Count 8.1 K/mm3 (4.4-11.0)
[2019-05-11 14:42] LABS: Anion Gap 6 (5-15); BUN 23 mg/dL (7-18); Calcium,Total 9.3 mg/dL (8.5-10.1); Chloride 105 mmol/L (98-107); Creatinine, Serum 0.85 mg/dL (0.70-1.30); EST Glomerular Filtration Rate 92 mL/min (>60); Est Glom Filt Rate - Afr Amer 112 mL/min (>60); Estimated Creatinine Clearance 87.93 ml/min; Glucose 99 mg/dL (74-106); Potassium 4.3 mmol/L (3.5-5.1); Sodium Level 140 mmol/L (136-145)
[2019-05-11 15:00] VITALS: BP 123/66; PULSE 61; RESP 15; O2SAT 95
--- NOTE | 2019-05-11 15:34 | ED.DCSUM_ITS ---
- ER Visit Summary Date of Service: 05/11/19 Chief Complaint: [Fall with injury to right hip] History of Present Illness: The patient is a 79 M [presents to the emergency department with a fall and injury to the right hip that occurred this morning. Patient states that he was walking with his walking stick when he lost his balance and slid over and down onto a desk. Patient injured his right hip and right elbow. Patient states the elbow really does not hurt but he cannot stand or bear weight on the right hip. Patient states he has had prior right hip replacement. Dr. Davy Myers performed the surgery on his right hip. Patient denies striking his head or loss of consciousness. He has no headache or neck pain. Vision with history of hypertension and prior stroke.] Physical Examination: [HEENT-PERRLA, EOMI. Cranial nerves II through XII grossly intact. TMs clear. Mucous membranes moist. No adenopathy. Cardiovascular-regular rate and rhythm with a 2 out of 6 systolic ejection murmur noted. Lungs-clear to auscultation, chest wall stable without crepitus or subcu emphysema Abdomen-normoactive bowel sounds, soft, nontender, no rebound or rigidity, no peritoneal signs. Extremities-intact ?4, normal range of motion, normal pulses. Right hip-patient has tenderness to palpation over the lateral aspect of the right hip. Patient has some mild pain with logrolling and hip extension. He is neurovascular intact distally. There is no external rotation or shortening noted.] Test Results: [CBC with everything was normal. Chemistries unremarkable. X- rays of the right hip and pelvis obtained showed a fracture was minimally displaced of the right greater trochanter of the right hip.] Emergency Department Course and Treatment: [Will be discussed with hospitalist evaluate for admission as patient unable to bear weight or ambulate. Will discuss also with orthopedics on-call.] Treatment Plan: [Admit] Disposition: [Admit] Impression: [Mechanical fall Right hip fracture-greater trochanter ] This note was generated with [employer] dictation software. It may contain incorrect words, spelling, and punctuation that were not noted in review of the chart prior to signing ED Disposition - Plan for ED Patient: Referrals: Gildardo Catherine MD [Primary Care Provider] -
--- NOTE | 2019-05-11 16:07 | PCM.HP.STD ---
Problem List (1) Closed right hip fracture Status: Acute (2) Vascular dementia Status: Chronic (3) Tongue cancer Status: Chronic (4) Obstructive sleep apnea Status: Chronic (5) Hyperlipidemia Status: Chronic (6) Stroke Status: Chronic (7) HTN (hypertension) Status: Chronic History of Present Illness Date of Admission: 05/11/19 Chief Complaint: right hip pain The patient is a 79 year old M with pmhx of right total hip repair with Dr. Myers in 2006, hx dementia, hx CVA with residual left sided weakness, RAYNA, HTN, tongue CA, who presented to the ER with c/o right hip pain. This began after he fell this AM. He was discharged from [facility] 2 weeks ago and was supposed to be using a cane. This AM he was walking without a cane and lost his balance and fell. He landed on his right hip. He was unable to stand or walk at all. He was brought to the ER by squad and found to have a right minimally displaced greater troch fracture at the junction with the femoral shaft. Dr. Thapa was called to evaluate the patient. Currently his pain is 1/10 while at rest. No numbness or tingling. No N/V. No recent illness/infection. [] Past Medical History Past Medical History (Chronic Problems): Chronic Problems (Last Reviewed 02/01/18 @ 06:56 by Royer Maxwell MD) Vascular dementia (Chronic) Cervical spinal stenosis (Chronic) Left hemiparesis (Chronic) Tongue cancer (Chronic) Obstructive sleep apnea (Chronic) Hyperlipidemia (Chronic) Overactive bladder (Chronic) Cerebrovascular disease (Chronic) Stroke (Chronic) HTN (hypertension) (Chronic) Medical History: Medical History (Last Reviewed 02/01/18 @ 06:56 by Royer Maxwell MD) Cerebrovascular disease (Chronic) I67.9 Allergies chocolate flavor Adverse Reaction (Unknown, Verified 05/11/19 13:09) Other Pork/Porcine Containing Products Adverse Reaction (Unknown, Verified 05/11/19 13:09) Other atorvastatin [From Lipitor] Adverse Reaction (Verified 05/11/19 13:09) Other oxybutynin Adverse Reaction (Verified 05/11/19 13:09) Other Home Medications: Ambulatory Orders Medication Instructions Recorded Aspirin [Aspirin, Baby] 81 mg PO DAILY 06/12/17 Multivit-Min/Folic Acid/Biotin 1 each PO DAILY 07/30/17 [Hair, Skin and Nails Caplet] [place]-3/Dha/Epa/Fish Oil [Fish Oil 1 each PO DAILY 07/30/17 [place]-3 EC 1,200 mg] Vitamin E (Dl,Tocopheryl Acet) 400 units PO DAILY 07/30/17 [Vitamin E] Acetaminophen [Tylenol] 1,000 mg PO Q8H PRN PRN tablet 08/29/17 Amlodipine [Norvasc] 5 mg PO DAILY #30 tab 08/29/17 Galantamine Hbr [Razadyne] 4 mg PO BIDCM #60 tab 08/29/17 Lisinopril [Prinivil] 10 mg PO DAILY 02/01/18 Metformin HCl 500 mg BID 05/11/19 Rosuvastatin Calcium [Crestor] 10 mg PO DAILY 05/11/19 Sumatriptan Succ/Naproxen Sod 1 ea PO DAILY PRN 05/11/19 [Treximet 85-500 mg Tablet] Surgical History: total hip arthroplasty - Right hip, hemiarthroplasty., - - Tongue resection. Psychiatric History: No pertinent psych hx Lives: Spouse/ Significant Other Smoking Status: Never smoker Tobacco Use: Non-smoker Alcohol: None Drugs: None - *Family History Maternal History Items: No pertinent history Paternal History Items: Stroke Review of Systems Constitutional: Denies: Chills, Fever, Weight Change HEENT: Denies: Head Aches, Sinus Congestion, Sinus Drainage Cardiovascular: Denies: Chest Pain, Palpitations Respiratory: Denies: Cough, Shortness of breath at rest, Sputum production Gastrointestinal: Denies: Abdominal Pain, Nausea, Vomiting Genitourinary: Denies: Dysuria Musculoskeletal: Reports: Joint Pain, Joint Tenderness Skin: Denies: Rash, Wounds Neurological: Denies: Numbness, Tingling, Focal weakness Psychiatric: Denies: Anxiety, Depression, Homicidal Ideations, Suicidal Ideations Hematologic/ Lymphatic: Denies: Easy Bruising, Easy Bleeding VTE Information - Inpt Only VTE Present on Admission: No VTE Mechan Device Prophylaxis: None VTE Pharm Prophylaxis ordered?: Yes Patient Problems: Active and Suspected Problems (Last Reviewed 02/01/18 @ 06:56 by Royer Maxwell MD) Closed right hip fracture (Acute) - Physical Exam Vitals/I&O's: Vital Signs Temp Pulse Resp BP Pulse Ox 97.8 F 61 15 123/66 H 95 05/11/19 13:06 05/11/19 15:00 05/11/19 15:00 05/11/19 15:00 05/11/19 15:00 Oxygen Delivery Method Room Air Weight: 217 lb 13.067 oz Body Mass Index (BMI) 26.5 Finger Stick Blood Glucose 140 General: Alert, Oriented x3, Cooperative HEENT: Atraumatic, PERRLA, EOMI, Normocephalic Neck: Supple, No JVD, Negative Carotid Bruits Lungs: Clear to auscultation, Normal air movement Cardiovascular: Regular rate, No murmurs Abdomen: Bowel Sounds Present, Soft, Non Tender Extremities: No edema, Capillary Refill Less than 3 Seconds Skin: No rashes, No breakdown Musculoskeletal: No Tenderness to Palpation of Joints or Extremities, Tenderness - right hip, - - distal PMS intact Neurological: Cranial nerves II-XII grossly intact Psych/Mental Status: Normal Affect, Appropriate, Alert and oriented to time, place, person, mood and affect Laboratory Results 05/11/19 14:00: WBC 8.1, RBC 4.43 L, Hgb 13.4, Hct 41.7, MCV 94.1 H, MCH 30.2, MCHC 32.1, RDW Std Deviation 44.8 H, RDW Coeff of Earline 13.0, Plt Count 161, MPV 10.3, Immature Gran % (Auto) 0.500, Neut % (Auto) 77.6 H, Lymph % (Auto) 16.1 L, [place] % (Auto) 5.1, Eos % (Auto) 0.2, Baso % (Auto) 0.5, Absolute Neuts (auto) 6.3, Absolute Lymphs (auto) 1.30, Nucleated RBC % 0 05/11/19 14:00: Sodium 140, Potassium 4.3, Chloride 105, Carbon Dioxide 29.0, Anion Gap 6, BUN 23 H, Creatinine 0.85, Estim Creat Clear Calc 87.93, Est GFR (MDRD) Af Amer 112, Est GFR (MDRD) Non-Af 92, BUN/Creatinine Ratio 27.0 H, Glucose 99, Calcium 9.3 Assessment/Plan All Active Problems (Last Reviewed 02/01/18 @ 06:56 by Royer Maxwell MD) Numbness and tingling of right arm (Acute) Migraine (Acute) Closed right hip fracture (Acute) Mental status alteration (Acute) Generalized weakness (Acute) 1. Closed minimally displaced right greater troch fracture 2/2 mechanical fall - consult Dr. Muñoz regarding whether he will need surgery. Pain well controlled currently. Previous right total hip per Dr. Myers 2006. 2. Prior CVA with residual left sided weakness - PTOT. Continue aspirin, statin 3. Hx RAYNA - to bring CPAP in tonight 4. Hx Vascular dementia - continue home meds 5. HTN - stable 6. HLD - statin 7. DMt2 - hold metformin, SSI. DVT ppx: lovenox DC planning: PTOT evals. recently completed outpatient PTOT This patient was seen by Aaron Ramon PA-C under the supervision of Dr. Cheng.
[2019-05-11 17:23] VITALS: BP 127/69; PULSE 64; RESP 16; TEMP 36.5; O2SAT 99; BMI 25.4
[2019-05-11 17:49] VITALS: BMI 26.5
[2019-05-11] MEDS: metFORMIN HCl 500 MG Tablet PO (18:05)
[2019-05-11] MEDS: 0.9% Normal Saline 1,000 ML 75 ML IV (18:05)
[2019-05-11] MEDS: Galantamine Hydrobromide 4 MG Tablet PO (18:05)
[2019-05-11] MEDS: Acetaminophen 325 MG Tablet 650 MG PO (21:04)
[2019-05-11] MEDS: 0.9% Saline Lock 10 ML Syringe IV (21:04)
[2019-05-11 22:02] VITALS: BP 123/64; PULSE 75; RESP 16; TEMP 37.3; O2SAT 95
[2019-05-12] MEDS: oxyCODONE 5 MG Tablet PO ×2 (01:21→10:06)
[2019-05-12 04:00] VITALS: BP 109/60; PULSE 72; RESP 16; TEMP 37.1; O2SAT 95
[2019-05-12] MEDS: Acetaminophen 325 MG Tablet 650 MG PO (04:07)
[2019-05-12] MEDS: 0.9% Normal Saline 1,000 ML 75 ML IV ×2 (07:05→20:36)
--- NOTE | 2019-05-12 08:08 | CON.PCM_ITS ---
Reason for Consult Date of Consultation: 05/12/19 Reason for Consultation: left hip pain. requested by dr ruby History of Present Illness: The patient is a 79 year old M with a history of dementia and previous right hip fracture and hemiarthroplasty. Patient had hemiarthroplasty in 2012 by my partner. Patient notes he usually gets around the house with a walking stick however he was walking down the [place]ul without his walking stick yesterday and had a mechanical fall. Denies any head injuries or loss of consciousness. He reports severe 7 out of 10 pain on the lateral aspect of his hip. No posterior hip pain, no groin pain. Localizes it over the greater trochanter. It is made it difficult for him to bear weight and walk. He was admitted to the hospital for therapy and placement. Patient notes previously no difficulties with the partial hip replacement. He did follow-up with Dr. Davy Myers reportedly 6 months ago. No associated numbness and tingling or radiating pain down his leg. Past Medical History Past Medical History (Chronic Problems): Chronic Problems (Last Reviewed 02/01/18 @ 06:56 by Royer Maxwell MD) Vascular dementia (Chronic) Cervical spinal stenosis (Chronic) Left hemiparesis (Chronic) Tongue cancer (Chronic) Obstructive sleep apnea (Chronic) Hyperlipidemia (Chronic) Overactive bladder (Chronic) Cerebrovascular disease (Chronic) Stroke (Chronic) HTN (hypertension) (Chronic) Medical History: Medical History (Last Reviewed 02/01/18 @ 06:56 by Royer Maxwell MD) Cerebrovascular disease (Chronic) I67.9 Allergies chocolate flavor Adverse Reaction (Unknown, Verified 05/11/19 17:38) Other headache Pork/Porcine Containing Products Adverse Reaction (Unknown, Verified 05/11/19 17:38) Other headache atorvastatin [From Lipitor] Adverse Reaction (Verified 05/11/19 17:38) Other stomach issues oxybutynin Adverse Reaction (Verified 05/11/19 13:09) Other Home Medications: Ambulatory Orders Medication Instructions Recorded Aspirin [Aspirin, Baby] 81 mg PO QHS 06/12/17 Multivit-Min/Folic Acid/Biotin 1 each PO DAILY 07/30/17 [Hair, Skin and Nails Caplet] [place]-3/Dha/Epa/Fish Oil [Fish Oil 1 each PO DAILY 07/30/17 [place]-3 EC 1,200 mg] Vitamin E (Dl,Tocopheryl Acet) 400 units PO DAILY 07/30/17 [Vitamin E] Galantamine Hbr [Razadyne] 4 mg PO BIDCM #60 tab 08/29/17 Lisinopril [Prinivil] 10 mg PO DAILY 02/01/18 Amlodipine Besylate [Norvasc] 10 mg PO DAILY 05/11/19 Metformin HCl 500 mg PO BID 05/11/19 Rosuvastatin Calcium [Crestor] 10 mg PO MOFR 05/11/19 Sumatriptan Succ/Naproxen Sod 1 ea PO DAILY PRN 05/11/19 [Treximet 85-500 mg Tablet] Surgical History: total hip arthroplasty - Right hip, hemiarthroplasty., - - Tongue resection. Psychiatric History: No pertinent psych hx Lives: Spouse/ Significant Other Smoking Status: Never smoker Tobacco Use: Non-smoker Alcohol: None Drugs: None - *Family History Maternal History Items: No pertinent history Paternal History Items: Stroke Review of Systems Constitutional: Denies: Chills, Fever, Weight Change HEENT: Denies: Head Aches, Sinus Congestion, Sinus Drainage Cardiovascular: Denies: Chest Pain, Palpitations Respiratory: Denies: Cough, Shortness of breath at rest, Sputum production Gastrointestinal: Denies: Abdominal Pain, Nausea, Vomiting Genitourinary: Denies: Dysuria Musculoskeletal: Denies: Joint Pain, Joint Tenderness Skin: Denies: Rash, Wounds Neurological: Denies: Numbness, Tingling, Focal weakness Psychiatric: Denies: Anxiety, Depression, Homicidal Ideations, Suicidal Ideations Hematologic/ Lymphatic: Denies: Easy Bruising, Easy Bleeding Patient Problems: Active and Suspected Problems (Last Reviewed 02/01/18 @ 06:56 by Royer Maxwell MD) Closed right hip fracture (Acute) Objective: Right hip radiographs show stable well-placed right hip hemiarthroplasty. The implant appears to be stably fixed in the metaphysis. Laterally there is a minimally displaced impacted greater trochanteric periprosthetic hip fracture. - Physical Exam Vitals/I&O's: Vital Signs Temp Pulse Resp BP Pulse Ox 98.7 F 72 16 109/60 95 05/12/19 04:00 05/12/19 04:00 05/12/19 04:00 05/12/19 04:00 05/12/19 04:00 Oxygen Delivery Method CPAP Weight: 209 lb 10.554 oz Body Mass Index (BMI) 25.4 Finger Stick Blood Glucose 140 Intake and Output for Last 24 Hours 05/10/19 05/11/19 05/12/19 23:59 23:59 23:59 Intake Total 240 / 590 1525 / 1525 Balance 240 / 590 1525 / 1525 General: Alert, Oriented x3, Cooperative Extremities: - - Right lower extremity: Exquisite tenderness palpation of the greater trochanter. Negative logroll. Leg lengths are equal. Sensations intact light touch saphenous, sural, superficial peroneal, tibial and deep peroneal nerve distributions. There is intact dorsiflexion EHL and plantar flexion. Skin: No rashes Laboratory Results 05/11/19 14:00: WBC 8.1, RBC 4.43 L, Hgb 13.4, Hct 41.7, MCV 94.1 H, MCH 30.2, MCHC 32.1, RDW Std Deviation 44.8 H, RDW Coeff of Earline 13.0, Plt Count 161, MPV 10.3, Immature Gran % (Auto) 0.500, Neut % (Auto) 77.6 H, Lymph % (Auto) 16.1 L, [place] % (Auto) 5.1, Eos % (Auto) 0.2, Baso % (Auto) 0.5, Absolute Neuts (auto) 6.3, Absolute Lymphs (auto) 1.30, Nucleated RBC % 0 05/11/19 14:00: Sodium 140, Potassium 4.3, Chloride 105, Carbon Dioxide 29.0, Anion Gap 6, BUN 23 H, Creatinine 0.85, Estim Creat Clear Calc 87.93, Est GFR (MDRD) Af Amer 112, Est GFR (MDRD) Non-Af 92, BUN/Creatinine Ratio 27.0 H, Glucose 99, Calcium 9.3 Current Medications Acetaminophen (Tylenol) 650 mg PO Q4H PRN PRN PRN Reason: Pain Score 1-10/10 Last Admin: 05/12/19 04:07 Dose: 650 mg Documented by: Amlodipine Besylate (Norvasc) 10 mg PO DAILY [facility] Aspirin (Aspirin, Baby) 81 mg PO DAILY [facility] Enoxaparin Sodium (Lovenox) 40 mg SC DAILY@1000 [facility] Galantamine Hydrobromide (Razadyne) 4 mg PO BIDCM [facility] Last Admin: 05/11/19 18:05 Dose: 4 mg Documented by: Sodium Chloride () 1,000 mls @ 75 mls/hr IV .[id number] [facility] Last Admin: 05/12/19 07:05 Dose: 75 mls/hr Documented by: Lisinopril (Zestril) 10 mg PO DAILY [facility] Metformin HCl (Glucophage) 500 mg PO BIDCM [facility] Last Admin: 05/11/19 18:05 Dose: 500 mg Documented by: Oxycodone HCl (Oxyir) 5 mg PO Q4H PRN PRN PRN Reason: Pain Score 6-1010 Last Admin: 05/12/19 01:21 Dose: 5 mg Documented by: Rosuvastatin Calcium (Crestor) 10 mg PO MoFr@2200 [facility] Sodium Chloride () 10 - 40 ml IV UD PRN PRN Reason: SALINE FLUSH Last Admin: 05/11/19 21:04 Dose: 10 ml Documented by: Assessment/Plan All Active Problems (Last Reviewed 02/01/18 @ 06:56 by Royer Maxwell MD) Numbness and tingling of right arm (Acute) Migraine (Acute) Closed right hip fracture (Acute) Mental status alteration (Acute) Generalized weakness (Acute) Right hip periprosthetic greater trochanteric hip fracture. On x-rays implants appear stable. At this time I discussed the natural history disease process and treatment options with the patient. Is minimally displaced fracture. I have outlined a treatment plan for the patient at this time which include 6 weeks of 50% partial weightbearing and no active abduction. This should minimize the risk of displacement of the fracture and allow for nonoperative treatment. Patient begin physical therapy in house. He should use a cane or a walker during that time. He should follow-up in the office in [address] Myers his primary surgeon or myself whomever he wishes to follow long-term. SAW
[2019-05-12] MEDS: Galantamine Hydrobromide 4 MG Tablet PO ×2 (08:23→17:32)
[2019-05-12] MEDS: metFORMIN HCl 500 MG Tablet PO ×2 (08:23→17:32)
[2019-05-12 09:50] VITALS: BP 114/63; PULSE 68; RESP 16; TEMP 36.9; O2SAT 96
[2019-05-12] MEDS: Enoxaparin 40 MG/0.4 ML Syringe SC (09:56)
[2019-05-12] MEDS: amLODIPine 10 MG Tablet PO (09:56)
--- NOTE | 2019-05-12 11:53 | PCM.PROGNOTE ---
<Aaron Ramon - Last Filed: 05/12/19 11:53> Patient Problems: Active and Suspected Problems (Last Reviewed 02/01/18 @ 06:56 by Royer Maxwell MD) Closed right hip fracture (Acute) Subjective: Pain in hip improved. He was able to stand and weight bear with PTOT today with the assistance of a walker. When he weight bears he has significant pain but improved since yesterday. He is otherwise doing well, and he and his are seeking placement in either the rehab unit or TCU. He has no numbness/tingling of the effected extremity. No N/V. No pain at rest. - Physical Exam Vitals/I&O's: Vital Signs Temp Pulse Resp BP Pulse Ox 98.5 F 68 16 114/63 96 05/12/19 09:50 05/12/19 09:50 05/12/19 09:50 05/12/19 09:50 05/12/19 09:50 Oxygen Delivery Method Room Air Weight: 209 lb 10.554 oz Body Mass Index (BMI) 25.4 Finger Stick Blood Glucose 140 Intake and Output for Last 24 Hours 05/10/19 05/11/19 05/12/19 23:59 23:59 23:59 Intake Total 240 / 590 1525 / 1525 Balance 240 / 590 1525 / 1525 General: Alert, Oriented x3, Cooperative HEENT: Atraumatic, PERRLA, EOMI, Normocephalic Neck: Supple, No JVD, Negative Carotid Bruits Lungs: Clear to auscultation, Normal air movement Cardiovascular: Regular rate, No murmurs Abdomen: Bowel Sounds Present, Soft, Non Tender Extremities: No edema, Capillary Refill Less than 3 Seconds Skin: No rashes, No breakdown Musculoskeletal: Tenderness - right hip, - - distal PMS intact Neurological: Cranial nerves II-XII grossly intact Psych/Mental Status: Normal Affect, Appropriate, Alert and oriented to time, place, person, mood and affect Laboratory Results 05/11/19 14:00: WBC 8.1, RBC 4.43 L, Hgb 13.4, Hct 41.7, MCV 94.1 H, MCH 30.2, MCHC 32.1, RDW Std Deviation 44.8 H, RDW Coeff of Earline 13.0, Plt Count 161, MPV 10.3, Immature Gran % (Auto) 0.500, Neut % (Auto) 77.6 H, Lymph % (Auto) 16.1 L, [place] % (Auto) 5.1, Eos % (Auto) 0.2, Baso % (Auto) 0.5, Absolute Neuts (auto) 6.3, Absolute Lymphs (auto) 1.30, Nucleated RBC % 0 05/11/19 14:00: Sodium 140, Potassium 4.3, Chloride 105, Carbon Dioxide 29.0, Anion Gap 6, BUN 23 H, Creatinine 0.85, Estim Creat Clear Calc 87.93, Est GFR (MDRD) Af Amer 112, Est GFR (MDRD) Non-Af 92, BUN/Creatinine Ratio 27.0 H, Glucose 99, Calcium 9.3 Current Medications Acetaminophen (Tylenol) 650 mg PO Q4H PRN PRN PRN Reason: Pain Score 1-04/04 Last Admin: 05/12/19 04:07 Dose: 650 mg Documented by: Amlodipine Besylate (Norvasc) 10 mg PO DAILY [facility] Last Admin: 05/12/19 09:56 Dose: 10 mg Documented by: Aspirin (Aspirin, Baby) 81 mg PO QHS [facility] Enoxaparin Sodium (Lovenox) 40 mg SC DAILY@1000 [facility] Last Admin: 05/12/19 09:56 Dose: 40 mg Documented by: [facility] Last Admin: 05/12/19 08:23 Dose: 4 mg Documented by: Sodium Chloride () 1,000 mls @ 75 mls/hr IV .[id number] [facility] Last Admin: 05/12/19 07:05 Dose: 75 mls/hr Documented by: Lisinopril (Zestril) 10 mg PO 1200 [facility]formin [facility]) [facility] Last Admin: 05/12/19 08:23 Dose: 500 mg Documented by: Oxycodone HCl (Oxyir) 5 mg PO Q4H PRN PRN PRN Reason: Pain Score 6-1010 Last Admin: 05/12/19 10:06 Dose: 5 mg Documented by: Rosuvastatin Calcium (Crestor) 10 mg PO MoFr@2200 [facility] Sodium Chloride () 10 - 40 ml IV UD PRN PRN Reason: SALINE FLUSH Last Admin: 05/11/19 21:04 Dose: 10 ml Documented by: Medical Necessity - Tobacco Use Smoking Status: Never smoker Tobacco Use: Non-smoker Assessment/Plan All Active Problems (Last Reviewed 02/01/18 @ 06:56 by Royer Maxwell MD) Numbness and tingling of right arm (Acute) Migraine (Acute) Closed right hip fracture (Acute) Mental status alteration (Acute) Generalized weakness (Acute) 1. Closed minimally displaced right greater troch fracture 2/2 mechanical fall - per Dr. Muñoz: no surgery, 50% weight bearing, f/u Dr. Myers in 2 weeks. Continue PTOT. Pt is able to weight bear and pain is improving. 2. Prior CVA with residual left sided weakness - PTOT. Continue aspirin, statin 3. Hx RAYNA - CPAP qhs 4. Hx Vascular dementia - continue home meds 5. HTN - stable 6. HLD - statin 7. DMt2 - hold metformin, SSI. DVT ppx: lovenox DC planning: SNF vs Rehab unit This patient was seen by Aaron Ramon PA-C under the supervision of Dr. Dominguez. <Marco Dominguez F - Last Filed: 05/12/19 13:12> - Physical Exam Vitals/I&O's: Vital Signs Temp Pulse Resp BP Pulse Ox 98.5 F 68 16 114/63 96 05/12/19 09:50 05/12/19 09:50 05/12/19 09:50 05/12/19 09:50 05/12/19 09:50 Oxygen Delivery Method Room Air Weight: 209 lb 10.554 oz Body Mass Index (BMI) 25.4 Finger Stick Blood Glucose 140 Intake and Output for Last 24 Hours 05/10/19 05/11/19 05/12/19 23:59 23:59 23:59 Intake Total 240 / 590 1964 Balance 240 / 590 1964 Laboratory Results 05/11/19 14:00: WBC 8.1, RBC 4.43 L, Hgb 13.4, Hct 41.7, MCV 94.1 H, MCH 30.2, MCHC 32.1, RDW Std Deviation 44.8 H, RDW Coeff of Earline 13.0, Plt Count 161, MPV 10.3, Immature Gran % (Auto) 0.500, Neut % (Auto) 77.6 H, Lymph % (Auto) 16.1 L, [place] % (Auto) 5.1, Eos % (Auto) 0.2, Baso % (Auto) 0.5, Absolute Neuts (auto) 6.3, Absolute Lymphs (auto) 1.30, Nucleated RBC % 0 05/11/19 14:00: Sodium 140, Potassium 4.3, Chloride 105, Carbon Dioxide 29.0, Anion Gap 6, BUN 23 H, Creatinine 0.85, Estim Creat Clear Calc 87.93, Est GFR (MDRD) Af Amer 112, Est GFR (MDRD) Non-Af 92, BUN/Creatinine Ratio 27.0 H, Glucose 99, Calcium 9.3 Current Medications Acetaminophen (Tylenol) 650 mg PO Q4H PRN PRN PRN Reason: Pain Score 1-04/04 Last Admin: 05/12/19 04:07 Dose: 650 mg Documented by: Amlodipine Besylate (Norvasc) 10 mg PO DAILY [facility] Last Admin: 05/12/19 09:56 Dose: 10 mg Documented by: Aspirin (Aspirin, Baby) 81 mg PO QHS [facility] Enoxaparin Sodium (Lovenox) 40 mg SC DAILY@1000 [facility] Last Admin: 05/12/19 09:56 Dose: 40 mg Documented by: Galantamine [facility]brom[facility]ne) [facility] Last Admin: 05/12/19 08:23 Dose: 4 mg Documented by: Sodium Chloride () 1,000 mls @ 75 mls/hr IV .[id number] [facility] Last Admin: 05/12/19 07:05 Dose: 75 mls/hr Documented by: Lisinopril (Zestril) 10 mg PO 1200 [facility] Last Admin: 05/12/19 12:11 Dose: 10 mg Documented by: Metformin HCl (Glucophage) 500 mg PO BIDCM [facility] Last Admin: 05/12/19 08:23 Dose: 500 mg Documented by: Oxycodone HCl (Oxyir) 5 mg PO Q4H PRN PRN PRN Reason: Pain Score 6-1010 Last Admin: 05/12/19 10:06 Dose: 5 mg Documented by: Rosuvastatin Calcium (Crestor) 10 mg PO MoFr@2200 [facility] Sodium Chloride () 10 - 40 ml IV UD PRN PRN Reason: SALINE FLUSH Last Admin: 05/11/19 21:04 Dose: 10 ml Documented by: Code Visit Addendum: Dr. Dominguez I personally examined the patient and reviewed the chart. I agree with the above. 79-year-old male with previous right hip repair presents after a fall at home. He is had a history of a stroke that left him weak on the left side. He is likely supposed be walking at home with a walking stick however he was not the other day and he fell onto his right side. He has a minimally displaced fracture on the right and Ortho was consulted and did not feel that he needed surgery. He needs to be 50% nonweightbearing prior to his follow-up with his orthopedic surgeon. At this time we will plan on discharge to a snf facility if possible for further rehab. Inpatient E&M: 69808 Subs Hosp L2
[2019-05-12] MEDS: Lisinopril 10 MG Tablet PO (12:11)
[2019-05-12 15:30] VITALS: BP 123/72; PULSE 72; RESP 16; TEMP 37.1; O2SAT 99
[2019-05-12] MEDS: Aspirin 81 MG TAB.CHEW PO (20:36)
[2019-05-12 20:42] VITALS: BP 138/88; PULSE 75; RESP 18; TEMP 37.2; O2SAT 94
[2019-05-13 03:00] VITALS: BP 120/65; PULSE 68; RESP 16; TEMP 36.8; O2SAT 96
[2019-05-13] MEDS: Galantamine Hydrobromide 4 MG Tablet PO ×2 (08:18→17:18)
[2019-05-13] MEDS: metFORMIN HCl 500 MG Tablet PO ×2 (08:18→17:17)
[2019-05-13] MEDS: Acetaminophen 325 MG Tablet 650 MG PO ×2 (08:19→21:08)
[2019-05-13 08:21] VITALS: BP 128/66; PULSE 77; RESP 18; TEMP 36.9; O2SAT 96
[2019-05-13] MEDS: 0.9% Normal Saline 1,000 ML 75 ML IV ×2 (09:38→22:59)
[2019-05-13] MEDS: Enoxaparin 40 MG/0.4 ML Syringe SC (09:39)
--- NOTE | 2019-05-13 09:42 | CASEMGMT ---
Addendum entered by Sarah Luke 05/13/19 11:16: SW received call from [place] in TCU stating TCU will have a bed tomorrow and is able to accept pt. SW received call from [facility] stating [facility] will also have a bed tomorrow and would be able to accept if pt is able to do three hours of therapy a day. SW spoke with PT/OT and asked to evaluate pt for TCU vs [facility]. SW waiting to hear from PT/OT. Original Note: Social Work Note Physician updated this worker that pt and pt's are requesting either TCU vs. [facility]. SW placed a call to referral line and left message regarding referral. Plan: TCU vs. [facility] Sarah Luke ACCESS RN, DESIGNER AND PATTERN[employer]KER
[2019-05-13] MEDS: Lisinopril 10 MG Tablet PO (11:48)
[2019-05-13] MEDS: amLODIPine 10 MG Tablet PO (11:48)
--- NOTE | 2019-05-13 12:19 | CASEMGMT ---
Social Work Note PT/OT updated this worker that pt is appropriate for [facility]. HANDY placed a call to Kisha with [facility] and updated her that PT/OT recommend [facility]. Kisha states she is able to accept pt tomorrow on [facility]. SW in to speak with pt and pt's Jesika present in room. SW introduced self and role at [facility]. SW updated pt and Jesika that PT/OT recommend [facility] and [facility] is able to accept pt tomorrow. Pt and Jesika state understanding. HANDY placed a call to [place] in [facility] and updated her that pt will be going to [facility]. Plan: [facility] tomorrow Sarah Luke RADIOISOTOPE TECHNOLOGIST, COLLECTION ADMINISTRATOR
--- NOTE | 2019-05-13 12:53 | PN_ITS ---
Patient Problems: Active and Suspected Problems (Last Reviewed 02/01/18 @ 06:56 by Royer Maxwell MD) Closed right hip fracture (Acute) Subjective: Patient seen and examined. He has no complaints and feels very well today. Review of systems otherwise negative. He is awaiting placement. Labs and vitals reviewed. Vitals/I&O's: Vital Signs Temp Pulse Resp BP Pulse Ox 98.4 F 77 18 128/66 H 96 05/13/19 08:21 05/13/19 08:21 05/13/19 08:21 05/13/19 08:21 05/13/19 08:21 Oxygen Delivery Method Room Air Weight: 209 lb 10.554 oz Body Mass Index (BMI) 25.4 Finger Stick Blood Glucose 140 Intake and Output for Last 24 Hours 05/11/19 05/12/19 05/13/19 23:59 23:59 23:59 Intake Total 240 / 590 3515 / 3515 1527.5 / 1527.5 Balance 240 / 590 3515 / 3515 1527.5 / 1527.5 General: Alert, Oriented x3, Cooperative, No apparent distress HEENT: Atraumatic, PERRLA, EOMI, Normocephalic Oral: Moist Mucosa Neck: Supple, No JVD, Negative Carotid Bruits Lungs: Clear to auscultation, Normal air movement, No rhonchi, No wheeze Cardiovascular: Regular rate, Regular Rhythm, Normal S1, Normal S2, No murmurs Abdomen: Bowel Sounds Present, Soft, Non Tender, Non-Distended, No Hepato- splenomegaly Extremities: No clubbing, No cyanosis, No edema, Capillary Refill Less than 3 Seconds Skin: No rashes, No breakdown Musculoskeletal: No Tenderness to Palpation of Joints or Extremities Lymphatic: No Cervical, Supraclavicular, or Inguinal Adenopathy Neurological: Cranial nerves II-XII grossly intact, Neuro grossly intact, Motor Exam 5/5 strength throughout Psych/Mental Status: Normal Affect, Appropriate, Alert and oriented to time, place, person, mood and affect Current Medications Acetaminophen (Tylenol) 650 mg PO Q4H PRN PRN PRN Reason: Pain Score 1-10/10 Last Admin: 05/13/19 08:19 Dose: 650 mg Documented by: Amlodipine Besylate (Norvasc) 10 mg PO DAILY [facility] Last Admin: 05/13/19 11:48 Dose: 10 mg Documented by: Aspirin (Aspirin, Baby) 81 mg PO QHS [facility] Last Admin: 05/12/19 20:36 Dose: 81 mg Documented by: Enoxaparin Sodium (Lovenox) 40 mg SC DAILY@1000 [facility] Last Admin: 05/13/19 09:39 Dose: 40 mg Documented by: Galantamine Hydrobromide (Razadyne) 4 mg PO BIDCM [facility] Last Admin: 05/13/19 08:18 Dose: 4 mg Documented by: Sodium Chloride () 1,000 mls @ 75 mls/hr IV .[id number] [facility] Last Admin: 05/13/19 09:38 Dose: 75 mls/hr Documented by: Lisinopril (Zestril) 10 mg PO 1200 [facility] Last Admin: 05/13/19 11:48 Dose: 10 mg Documented by: Metformin HCl (Glucophage) 500 mg PO BIDCM [facility] Last Admin: 05/13/19 08:18 Dose: 500 mg Documented by: Oxycodone HCl (Oxyir) 5 mg PO Q4H PRN PRN PRN Reason: Pain Score 6-10/10 Last Admin: 05/12/19 10:06 Dose: 5 mg Documented by: Rosuvastatin Calcium (Crestor) 10 mg PO MoFr@2200 [facility] Sodium Chloride () 10 - 40 ml IV UD PRN PRN Reason: SALINE FLUSH Last Admin: 05/11/19 21:04 Dose: 10 ml Documented by: Medical Necessity - Tobacco Use Smoking Status: Never smoker Tobacco Use: Non-smoker Assessment/Plan All Active Problems (Last Reviewed 02/01/18 @ 06:56 by Royer Maxwell MD) Numbness and tingling of right arm (Acute) Migraine (Acute) Closed right hip fracture (Acute) Mental status alteration (Acute) Generalized weakness (Acute) 1. Right minimally displaced greater trochanteric fracture * due to mechanical fall * pain is well controlled; on oxycodone and tylenol for pain. * orthopedics on board: recommend conservative management and 50% weight bearing on affected extremity * PT/OT on board * 2. History of CVA with mild residual left sided weakness * On aspirin and statin. 3. History of RAYNA: On CPAP nightly. 4. History of vascular dementia: On galantamine 5. Hypertension: Controlled. On lisinopril and amlodipine. 6. Hyperlipidemia: On statin. 7. Type 2 diabetes mellitus: On insulin sliding scale. Adjust ACH S. Metformin was held on admission. Will resume. DVT prophylaxis: Lovenox Disposition: for DC to rehab unit tomorrow. Code Visit Inpatient E&M: 39742 Subs Hosp L2
--- NOTE | 2019-05-13 14:23 | CHAPLAIN ---
Type of Pastoral Visit _x__ Initial Visit ___ Follow-up Visit ___ On-call Visit ___ General Patient Visit ___ Spiritual Assessment ___ Family Conference ___ Bereavement ___ Rapid Response ___ Code Blue ___ Other (describe below) Pastoral Care Referral From _x__ Patient ___ Family ___ Nurse ___ Physician ___ Manager Service Desk ___ Computer Applications Instructor ___ Other (describe below) Sacrament/Intervention _x__ Active listening ___ Anointing ___ Confucianist ___ Bereavement ___ Communion ___ Tasha exploration ___ _x__ Life review _x__ Prayer ___ Reconciliation ___ Sacrament of Sick _x__ Supportive presence ___ Wedding ___ Other (describe below) Pastoral Comments
[2019-05-13 14:25] VITALS: BP 120/82; PULSE 75; RESP 18; TEMP 36.7; O2SAT 96
[2019-05-13] MEDS: Aspirin 81 MG TAB.CHEW PO (21:08)
[2019-05-13 21:12] VITALS: BP 129/62; PULSE 78; RESP 16; TEMP 37.1; O2SAT 95
[2019-05-14 03:02] VITALS: BP 142/77; PULSE 66; RESP 16; TEMP 36.9; O2SAT 96
[2019-05-14] MEDS: metFORMIN HCl 500 MG Tablet PO (08:22)
[2019-05-14] MEDS: Galantamine Hydrobromide 4 MG Tablet PO (08:22)
[2019-05-14] MEDS: Enoxaparin 40 MG/0.4 ML Syringe SC (08:23)
[2019-05-14] MEDS: amLODIPine 10 MG Tablet PO (08:23)
[2019-05-14] MEDS: Acetaminophen 325 MG Tablet 650 MG PO (08:28)
[2019-05-14 08:51] VITALS: BP 132/65; PULSE 69; RESP 18; TEMP 36.7; O2SAT 96
--- NOTE | 2019-05-14 09:32 | RAD_ITS ---
STUDY: X-RAY - RIGHT ELBOW REASON FOR EXAM: Male, 79 years old. Right elbow pain following a fall. TECHNIQUE: 2 view(s) of the elbow. COMPARISON: None. FINDINGS: Normal visualized humerus, radius and ulna. Normal radiocapitellar and ulnotrochlear articulations. The soft tissue structures are unremarkable. RAD/Elbow 2 Views IMPRESSION: Normal x-ray examination of the elbow. Electronically Signed: Aleksandr Ji, at 14:27 EST , Service support ,
--- NOTE | 2019-05-14 09:39 | PCM.TXEXTCAR ---
- Diet 05/11/19 17:17 Diet: Regular Diet Food consistency:: Regular Liquid Consistency:: Regular/Thin Diet Comments: hx tongue cancer-supervised feed food must be cut in bite size pieces - Routine Orders/Code Status Enema Type: Fleetz Enema Frequency: Daily PRN Suppository Type: Dulcolax 10mg Suppository Frequency: Daily PRN - 50% weight bearing on affected extremity - Therapies Weight Bearing: Partial weight bearing Physical Therapy: Eval and Treat Occupational Therapy: Eval and Treat - Allergies/Procedures Done in Hospital Allergies/Adverse Reactions: Allergies chocolate flavor Adverse Reaction (Unknown, Verified 05/11/19 17:38) Other headache Pork/Porcine Containing Products Adverse Reaction (Unknown, Verified 05/11/19 17:38) Other headache atorvastatin [From Lipitor] Adverse Reaction (Verified 05/11/19 17:38) Other stomach issues oxybutynin Adverse Reaction (Verified 05/11/19 13:09) Other Procedures: None - Type of Care/Length of Stay Estimated LOS: More Than 30 Days Type of Care Needed: Skilled Rehab Potential: Fair Prognosis: Fair - Additional Orders/Day of Discharge Additional Orders: patient needs food cut up into little pieces, at risk of aspiration. WIll need someone to sit with him whilst eating as he cannot tell if food comes out of mouth o/a of history of tongue cancer. Day of Discharge: 05/14/19 - Dietary and Speech Recommendations Dietitian Recommendations/Changes: Will provide glucerna shake w/ medpass for increased nutrition if consumed. - Follow Up Care Primary Care Physician: Gildardo Catherine MD [Primary Care Provider] - Please follow up with your Primary Care Physician in: one week Please Follow Up With: Emigdio Muñoz MD When: 2 weeks
--- NOTE | 2019-05-14 09:43 | DS.PCM_ITS ---
Discharge Date and Diagnosis - Problem List Patient Problems: Active and Suspected Problems (Last Reviewed 02/01/18 @ 06:56 by Royer Maxwell MD) Closed right hip fracture (Acute) Date of Admission: 05/11/19 Date of Discharge: 05/14/19 - Primary Discharge Diagnosis Active and Suspected Problems (Last Reviewed 02/01/18 @ 06:56 by Royer Maxwell MD) Closed right hip fracture (Acute) - Secondary Discharge Diagnosis Chronic Problems (Last Reviewed 02/01/18 @ 06:56 by Royer Maxwell MD) Vascular dementia (Chronic) Cervical spinal stenosis (Chronic) Left hemiparesis (Chronic) Tongue cancer (Chronic) Obstructive sleep apnea (Chronic) Hyperlipidemia (Chronic) Overactive bladder (Chronic) Cerebrovascular disease (Chronic) Stroke (Chronic) HTN (hypertension) (Chronic) Hospital Course and Treatment Imaging Results: 05/14/19 09:32 Xray Elbow [Elbow 2 Views] [RAD] Urgent Operations: None Summary of Care Provided: The patient is a 79 year old M with a past medical history as listed. He was admitted through the ED on 05/11/2019 with a complaint of right hip. After he failed on the morning of admission. He was walking with a cane and lost his balance and fell and landed on his right hip. He was unable to stand or walk at all. He had been discharged from physical therapy just 2 weeks prior to presentation and was supposed to be using a cane to ambulate. On arrival in the ED, imaging done showed a right minimally displaced greater trochanteric fracture at the junction of the femoral shaft. Orthopedic surgery was consulted and recommended 6 weeks of 50% partial weightbearing and no active abduction to reduce the risk of displacement of the fracture and allow for treatment. Physical therapy was recommended and he was to use a cane or walker during ambulation. Patient remained stable during admission and pain was well controlled. He was discharged to the rehab unit on 05/14/2019. As recommended by orthopedics, he is to be partial weightbearing for 6 weeks and is to follow- up with orthopedics in 2 weeks. Patient seen and examined prior to discharge. He had no complaints and felt very well. Pain was well controlled. Review of systems is otherwise negative. Labs and vitals reviewed. had some concerns specifically about his feedin g and said he would need to have someone presents with him at all times during feeding on account of his history of tongue cancer which had resulted in him being unable to tell if food was coming out of his mouth or otherwise. He was therefore concerned that he may not be able to take his medication on his own. His was reassured that this will be passed on to the nursing staff once he was discharged. Home medication reviewed and reconciled. On examination Vital Signs Height 6 ft 4 in Weight: 209 lb 10.554 oz Weight in Pounds 209.7 lbs Pulse Ox 96 Temperature 98.0 F Pulse Rate 69 Respiratory Rate 18 Blood Pressure 132/65 Blood Pressure Position Semi-Fowlers [] General: Alert, Oriented x3, Cooperative, No apparent distress HEENT: Atraumatic, PERRLA, EOMI, Normocephalic Oral: Moist Mucosa Neck: Supple, No JVD, Negative Carotid Bruits Lungs: Clear to auscultation, Normal air movement, No rhonchi, No wheeze Cardiovascular: Regular rate, Regular Rhythm, Normal S1, Normal S2, No murmurs Abdomen: Bowel Sounds Present, Soft, Non Tender, Non-Distended, No Hepato- splenomegaly Extremities: No clubbing, No cyanosis, No edema, Capillary Refill Less than 3 Seconds Skin: No rashes, No breakdown Musculoskeletal: No Tenderness to Palpation of Joints or Extremities Lymphatic: No Cervical, Supraclavicular, or Inguinal Adenopathy Neurological: Cranial nerves II-XII grossly intact, Neuro grossly intact, Motor Exam 5/5 strength throughout Psych/Mental Status: Normal Affect, Appropriate, Alert and oriented to time, place, person, mood and affect Plan as above. Patient Problems: Active and Suspected Problems (Last Reviewed 02/01/18 @ 06:56 by Royer Maxwell MD) Closed right hip fracture (Acute) - Physical Exam Vitals/I&O's: Vital Signs Temp Pulse Resp BP Pulse Ox 98.0 F 69 18 132/65 H 96 05/14/19 08:51 05/14/19 08:51 05/14/19 08:51 05/14/19 08:51 05/14/19 08:51 Oxygen Delivery Method Room Air Weight: 209 lb 10.554 oz Body Mass Index (BMI) 25.4 Finger Stick Blood Glucose 140 Intake and Output for Last 24 Hours 05/12/19 05/13/19 05/14/19 23:59 23:59 23:59 Intake Total 3515 / 3515 2927.5 / 2927.5 Balance 3515 / 3515 2927.5 / 2927.5 Current Medications Acetaminophen (Tylenol) 650 mg PO Q4H PRN PRN PRN Reason: Pain Score 1-1010 Last Admin: 05/14/19 08:28 Dose: 650 mg Documented by: Amlodipine Besylate (Norvasc) 10 mg PO DAILY [facility] Last Admin: 05/14/19 08:23 Dose: 10 mg Documented by: Aspirin (Aspirin, Baby) 81 mg PO QHS [facility] Last Admin: 05/13/19 21:08 Dose: 81 mg Documented by: Enoxaparin Sodium (Lovenox) 40 mg SC DAILY@1000 [facility] Last Admin: 05/14/19 08:23 Dose: 40 mg Documented by: [facility] Last Admin: 05/14/19 08:22 Dose: 4 mg Documented by: Sodium Chloride () 1,000 mls @ 75 mls/hr IV .[id number] [facility] Last Admin: 05/13/19 22:59 Dose: 75 mls/hr Documented by: Lisinopril (Zestril) 10 mg PO 1200 [facility] Last Admin: 05/13/19 11:48 Dose: 10 mg Documented by: Metformin HCl (Glucophage) 500 mg PO BIDCM [facility] Last Admin: 05/14/19 08:22 Dose: 500 mg Documented by: Oxycodone HCl (Oxyir) 5 mg PO Q4H PRN PRN PRN Reason: Pain Score 6-10/10 Last Admin: 05/12/19 10:06 Dose: 5 mg Documented by: Rosuvastatin Calcium (Crestor) 10 mg PO MoFr@2200 [facility] Last Admin: 05/13/19 21:08 Dose: 10 mg Documented by: Sodium Chloride () 10 - 40 ml IV UD PRN PRN Reason: SALINE FLUSH Last Admin: 05/11/19 21:04 Dose: 10 ml Documented by: Discharge Diet: Low fat/ Low Cholesterol Discharge Activity: Use Walker - partial non weight bearing on affected limb Weight Bearing Status: Partial weight bearing Call your doctor if you observe: Fever of 101 or Higher, Numbness or Tingling, Uncontrolled pain Home Medications: Medications to take at Discharge Aspirin [Aspirin, Baby] 81 mg PO QHS 06/12/17 Multivit-Min/Folic Acid/Biotin [Hair, Skin and Nails Caplet] 1 each PO DAILY 07/30/17 [place]-3/Dha/Epa/Fish Oil [Fish Oil [place]-3 EC 1,200 mg] 1 each PO DAILY 07/30/17 Vitamin E (Dl,Tocopheryl Acet) [Vitamin E] 400 units PO DAILY 07/30/17 Galantamine Hbr [Razadyne] 4 mg PO BIDCM #60 tab 08/29/17 Lisinopril [Prinivil] 10 mg PO DAILY 02/01/18 Amlodipine Besylate [Norvasc] 10 mg PO DAILY 05/11/19 Metformin HCl 500 mg PO BID 05/11/19 Rosuvastatin Calcium [Crestor] 10 mg PO MOFR 05/11/19 Sumatriptan Succ/Naproxen Sod [Treximet 85-500 mg Tablet] 1 ea PO DAILY PRN 05/11/19 Acetaminophen [Tylenol Tablet] 650 mg PO Q4H PRN PRN #30 tab 05/14/19 Following Prescrptions Were Given to Patient: Acetaminophen [Tylenol Tablet] 650 mg PO Q4H PRN PRN #30 tab PRN Reason: Pain Score 1-10/10 Transmission Status: Received by [facility] Primary Care Physician: Gildardo Catherine MD [Primary Care Provider] - Please follow up with your Primary Care Physician in: one week Please Follow Up With: Emigdio Muñoz MD When: 2 weeks Disposition: Long-Term facility Minutes spent on discharge:: 40 Patient Condition:: Stable Medical Necessity - Tobacco Use Smoking Status: Never smoker Tobacco Use: Non-smoker Meaningful Use Info Meaningful Use Diagnoses (Choose all that apply): None applicable Code Visit Inpatient E&M: 59266 Disch Hosp
--- NOTE | 2019-05-14 09:53 | CASEMGMT ---
Social Work Note Pt is discharging to [facility] today. SW placed a call to Kisha with [facility] and updated her that pt will be discharged to [facility] today. 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
[2019-05-14] MEDS: Lisinopril 10 MG Tablet PO (12:29)
--- NOTE | 2019-05-14 12:37 | NURSING ---
@ 0800 it was verified w/ rehab unit that their unit is full and will not have bed until after lunch
--- NOTE | 2019-05-14 14:47 | PCM.HP.STD ---
Problem List (1) Debility Status: Acute (2) Vascular dementia Status: Chronic (3) Cervical spinal stenosis Status: Chronic (4) Tongue cancer Status: Chronic (5) Obstructive sleep apnea Status: Chronic (6) Hyperlipidemia Status: Chronic (7) Closed right hip fracture Status: Acute (8) Stroke Status: Chronic (9) HTN (hypertension) Status: Chronic History of Present Illness Date of Admission: 05/14/19 Chief Complaint: Status post fall and right hip fracture, right minimally displaced greater trochanteric fracture at the junction of femoral shaft The patient is a 79 year old M [facility] HTN, HLD, DM, 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 Patient was initially admitted to [facility] on 05/11/2019 with right hip pain status post fall was found to have minimally displaced fracture of the right greater trochanter at the junction with the femoral shaft, was managed conservatively per orthopedic recommendation, was seen by Dr. Muñoz who recommended 6 weeks of 50% partial weightbearing and no active abduction. Patient had a previous right hip fracture and hemiarthroplasty [place] [address] Davy Myers. At present patient denies any headache, dizziness, focal motor weakness, sensory loss, visual disturbances, speech disturbances, fever or chest pain. Patient lives with his , does not drive, was recently in physical therapy and used cane to ambulate, denies any frequent falls, lives in an independent house and has 4 steps to get into the house. Past Medical History Past Medical History (Chronic Problems): Chronic Problems (Last Reviewed 02/01/18 @ 06:56 by Royer Maxwell MD) Vascular dementia (Chronic) Cervical spinal stenosis (Chronic) Left hemiparesis (Chronic) Tongue cancer (Chronic) Obstructive sleep apnea (Chronic) Hyperlipidemia (Chronic) Overactive bladder (Chronic) Cerebrovascular disease (Chronic) Stroke (Chronic) HTN (hypertension) (Chronic) Medical History: Medical History (Last Reviewed 02/01/18 @ 06:56 by Royer Maxwell MD) Cerebrovascular disease (Chronic) I67.9 Allergies chocolate flavor Adverse Reaction (Unknown, Verified 05/11/19 17:38) Other headache Pork/Porcine Containing Products Adverse Reaction (Unknown, Verified 05/11/19 17:38) Other headache atorvastatin [From Lipitor] Adverse Reaction (Verified 05/11/19 17:38) Other stomach issues oxybutynin Adverse Reaction (Verified 05/11/19 13:09) Other Home Medications: Ambulatory Orders Medication Instructions Recorded Aspirin [Aspirin, Baby] 81 mg PO QHS 06/12/17 Multivit-Min/Folic Acid/Biotin 1 each PO DAILY 07/30/17 [Hair, Skin and Nails Caplet] Sweet Briar-3/Dha/Epa/Fish Oil [Fish Oil 1 each PO DAILY 07/30/17 Sweet Briar-3 EC 1,200 mg] Vitamin E (Dl,Tocopheryl Acet) 400 units PO DAILY 07/30/17 [Vitamin E] Galantamine Hbr [Razadyne] 4 mg PO BIDCM #60 tab 08/29/17 Lisinopril [Prinivil] 10 mg PO DAILY 02/01/18 Amlodipine Besylate [Norvasc] 10 mg PO DAILY 05/11/19 Metformin HCl 500 mg PO BID 05/11/19 Rosuvastatin Calcium [Crestor] 10 mg PO MOFR 05/11/19 Sumatriptan Succ/Naproxen Sod 1 ea PO DAILY PRN 05/11/19 [Treximet 85-500 mg Tablet] Acetaminophen [Tylenol Tablet] 650 mg PO Q4H PRN PRN #30 tab 05/14/19 Surgical History: total hip arthroplasty - Right hip, hemiarthroplasty., - - Tongue resection. Psychiatric History: No pertinent psych hx Lives: Spouse/ Significant Other Smoking Status: Never smoker Tobacco Use: Non-smoker Alcohol: None Drugs: None - *Family History Maternal History Items: No pertinent history Paternal History Items: Stroke Review of Systems Constitutional: Reports: - - Complete ROS negative except as documented in HPI VTE Information - Inpt Only VTE Present on Admission: No VTE Mechan Device Prophylaxis: SCD's, Knee High KATIE Hose VTE Pharm Prophylaxis ordered?: Yes Patient Problems: Active and Suspected Problems (Last Reviewed 02/01/18 @ 06:56 by Royer Maxwell MD) Closed right hip fracture (Acute) Debility (Acute) - Physical Exam Vitals/I&O's: Vital Signs Temp Pulse Resp BP Pulse Ox 98.0 F 69 18 132/65 H 96 05/14/19 08:51 05/14/19 08:51 05/14/19 08:51 05/14/19 08:51 05/14/19 08:51 Oxygen Delivery Method Room Air Weight: 95.1 kg Body Mass Index (BMI) 25.4 Finger Stick Blood Glucose 140 Intake and Output for Last 24 Hours 05/12/19 05/13/19 05/14/19 23:59 23:59 23:59 Intake Total 3515 / 3515 2927.5 / 2927.5 300 / 300 Balance 3515 / 3515 2927.5 / 2927.5 300 / 300 General: Alert HEENT: Normocephalic Neck: Supple Lungs: Normal air movement Cardiovascular: Normal S1, Normal S2 Abdomen: Bowel Sounds Present Extremities: No cyanosis Neurological: Cranial nerves II-XII grossly intact, Deep Tendon Reflexes 2+/4 and Symmetrical, Neuro grossly intact, Motor Exam 5/5 strength throughout, Muscle tone normal, Sensory exam intact to light touch and pain, Coordination normal, - - Unable to move the right lower extremity due to pain Psych/Mental Status: Normal Affect Current Medications Acetaminophen (Tylenol) 650 mg PO Q4H PRN PRN PRN Reason: Pain Score 1-10/10 Last Admin: 05/14/19 08:28 Dose: 650 mg Documented by: Amlodipine Besylate (Norvasc) 10 mg PO DAILY [facility] Last Admin: 05/14/19 08:23 Dose: 10 mg Documented by: Aspirin (Aspirin, Baby) 81 mg PO QHS [facility] Last Admin: 05/13/19 21:08 Dose: 81 mg Documented by: Enoxaparin Sodium (Lovenox) 40 mg SC DAILY@1000 [facility] Last Admin: 05/14/19 08:23 Dose: 40 mg Documented by: Galantamine Hydrobromide (Razadyne) 4 mg PO BIDCM [facility] Last Admin: 05/14/19 08:22 Dose: 4 mg Documented by: Sodium Chloride () 1,000 mls @ 75 mls/hr IV .[id number] [facility] Last Admin: 05/13/19 22:59 Dose: 75 mls/hr Documented by: Lisinopril (Zestril) 10 mg PO 1200 [facility] Last Admin: 05/14/19 12:29 Dose: 10 mg Documented by: Metformin HCl (Glucophage) 500 mg PO BIDCM [facility] Last Admin: 05/14/19 08:22 Dose: 500 mg Documented by: Oxycodone HCl (Oxyir) 5 mg PO Q4H PRN PRN PRN Reason: Pain Score 6-10/10 Last Admin: 05/12/19 10:06 Dose: 5 mg Documented by: Rosuvastatin Calcium (Crestor) 10 mg PO MoFr@2200 [facility] Last Admin: 05/13/19 21:08 Dose: 10 mg Documented by: Sodium Chloride () 10 - 40 ml IV UD PRN PRN Reason: SALINE FLUSH Last Admin: 05/11/19 21:04 Dose: 10 ml Documented by: Assessment/Plan All Active Problems (Last Reviewed 02/01/18 @ 06:56 by Royer Maxwell MD) Numbness and tingling of right arm (Acute) Migraine (Acute) Closed right hip fracture (Acute) Debility (Acute) Mental status alteration (Acute) Generalized weakness (Acute) The patient is a 79 year old M [facility] HTN, HLD, DM, 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 Patient was initially admitted to [facility] on 05/11/2019 with right hip pain status post fall was found to have minimally displaced fracture of the right greater trochanter at the junction with the femoral shaft, was managed conservatively per orthopedic recommendation, was seen by Dr. Muñoz who recommended 6 weeks of 50% partial weightbearing and no active abduction. Patient had a previous right hip fracture and hemiarthroplasty in [address] Davy Myers. At present patient denies any headache, dizziness, focal motor weakness, sensory loss, visual disturbances, speech disturbances, fever or chest pain. Patient lives with his , does not drive, was recently in physical therapy and used cane to ambulate, denies any frequent falls, lives in an independent house and has 4 steps to get into the house. Plan -PT for gait stability -OT for ADLs -Bowel protocol -Analgesics PRN -Right hip periprosthetic greater trochanteric hip fracture- minimally displaced, seen by Dr. Muñoz orthopedics, will defer further management to orthopedics, per Dr. Muñoz conservative management, 6 weeks of 50% partial weightbearing and no active abduction and follow up in office in 2 weeks -HTN-on lisinopril, amlodipine -HLD-on rosuvastatin -DM-on metformin -Stroke-on aspirin and rosuvastatin -Dementia-on galantamine -Migraines?avoid triptan's due to history of stroke -RAYNA on CPAP -GI/DVT prophylaxis- Pepcid/Lovenox, SCDs, KATIE hose -Fall precautions -Further medical management per hospitalist recommendations -Follow up with PCP, orthopedics Dr. Davy Myers/Dr Muñoz on discharge.
== END 2019-05-14 15:31 | DRG 536 ==
LOC: ED 13:30 → MS3 16:33
PROVIDERS: Admitting Provider Internal Medicine; Emergency Provider Emergency Medicine; Family Provider Family Medicine; PCP Family Medicine; Referring Provider Internal Medicine; Visit Provider Student in an Organized Health Care Education/Training Program
DX: S72.111A Displaced fracture of greater trochanter of right femur, initial encounter for closed fracture (principal); I69.354 Hemiplegia and hemiparesis following cerebral infarction affecting left non-dominant side; Z96.641 Presence of right artificial hip joint; G47.33 Obstructive sleep apnea (adult) (pediatric); I10 Essential (primary) hypertension; E78.5 Hyperlipidemia, unspecified; F01.50 Vascular dementia, unspecified severity, without behavioral disturbance, psychotic disturbance, mood disturbance, and anxiety; E11.9 Type 2 diabetes mellitus without complications; W18.30XA Fall on same level, unspecified, initial encounter; Y93.01 Activity, walking, marching and hiking; Y92.008 Other place in unspecified non-institutional (private) residence as the place of occurrence of the external cause; Z79.84 Long term (current) use of oral hypoglycemic drugs; Z79.899 Other long term (current) drug therapy; Z79.82 Long term (current) use of aspirin; M48.02 Spinal stenosis, cervical region; N32.81 Overactive bladder; Z85.810 Personal history of malignant neoplasm of tongue
CPT/HCPCS: 73070; 73502; 80048; 85025; 97110; 97116; 97162; 97166; 97530; 99285; J7030; A4216

== ENCOUNTER 2019-05-14 15:14 | Inpatient (IN) | payer MEDICARE, BC, SELFPAY ==
[2019-05-14 15:39] VITALS: BP 120/70; PULSE 70; RESP 16; TEMP 36.6; O2SAT 94; BMI 11.5; BMI 11.6
[2019-05-14 17:55] VITALS: RESP 16; O2SAT 97
[2019-05-14] MEDS: Glucerna Shake 120 ML LIQUID PO ×2 (18:28→20:39)
[2019-05-14] MEDS: metFORMIN HCl 500 MG Tablet PO (18:29)
[2019-05-14] MEDS: Galantamine Hydrobromide 4 MG Tablet PO (18:29)
[2019-05-14] MEDS: Acetaminophen 325 MG Tablet 650 MG PO (18:31)
[2019-05-14 19:20] VITALS: BP 131/67; PULSE 67; RESP 18; TEMP 36.6; O2SAT 67
[2019-05-14 20:00] VITALS: PULSE 67; RESP 18; O2SAT 97
[2019-05-14] MEDS: Senna/Docusate Sodium 1 Tablet 2 TABLET PO (20:38)
[2019-05-14] MEDS: Aspirin 81 MG TAB.CHEW PO (20:39)
[2019-05-14 20:45] VITALS: BMI 11.5
--- NOTE | 2019-05-15 02:57 | NURSING ---
REviewed and agree with [employer] documentation and charting.
[2019-05-15 06:15] LABS: Absolute Lymphocyte Count 1.73 X10^3/uL (0.83-4.51); Basophil# 0.04 X10^3/uL; Basophil% 0.7 % (0-1); Eosinophil# 0.16 X10^3/uL; Hematocrit 33.7 % (40-54); Hemoglobin 11.1 g/dL (13.0-16.5); Lymphocyte # 1.73 X10^3/ul (4.0); Lymphocyte % 32.4 % (19-41); Mean Corp Hgb Conc 32.9 g/dL (32-36); Mean Corpuscular Hgb 30.4 pg (27.0-32.0); Mean Corpuscular Volume 92.3 fL (80-94); Mean Platelet Vol. 10.2 fl (6.2-12.0); Monocyte# 0.39 X10^3/uL; Monocyte% 7.3 % (0-10); NRBC Flagged by Analyzer 0 % (0-5); Neutrophil % 56.2 % (47-70); Platelet Count 131 K/mm3 (150-450); RBC Distribution Width CV 12.7 % (11.6-14.6); RBC Distribution Width SD 42.4 fl (35.1-43.9); Red Blood Count 3.65 M/mm3 (4.6-6.2); White Blood Count 5.3 K/mm3 (4.4-11.0)
[2019-05-15] MEDS: Acetaminophen 325 MG Tablet 650 MG PO ×2 (06:24→19:56)
[2019-05-15] MEDS: Enoxaparin 40 MG/0.4 ML Syringe SC (06:24)
[2019-05-15 06:34] LABS: Anion Gap 5 (5-15); BUN 17 mg/dL (7-18); BUN/Creat Ratio 23.8 RATIO (10-20); Calcium,Total 8.7 mg/dL (8.5-10.1); Chloride 104 mmol/L (98-107); Creatinine, Serum 0.71 mg/dL (0.70-1.30); EST Glomerular Filtration Rate 113 mL/min (>60); Est Glom Filt Rate - Afr Amer 137 mL/min (>60); Estimated Creatinine Clearance 37.11 ml/min; Glucose 110 mg/dL (74-106); Potassium 3.9 mmol/L (3.5-5.1); Sodium Level 138 mmol/L (136-145)
[2019-05-15] MEDS: metFORMIN HCl 500 MG Tablet PO ×2 (07:45→17:00)
[2019-05-15] MEDS: Multivitamins,Ther W-Minerals Tablet 1 TABLET PO (07:46)
[2019-05-15] MEDS: Vitamin E 400 UNITS Capsule PO (07:47)
[2019-05-15] MEDS: Galantamine Hydrobromide 4 MG Tablet PO ×2 (07:47→17:00)
[2019-05-15] MEDS: Senna/Docusate Sodium 1 Tablet 2 TABLET PO ×2 (07:48→19:56)
[2019-05-15] MEDS: amLODIPine 10 MG Tablet PO (07:48)
[2019-05-15] MEDS: Glucerna Shake 120 ML LIQUID PO ×3 (07:48→19:56)
[2019-05-15] MEDS: Lisinopril 10 MG Tablet PO (07:49)
[2019-05-15 09:01] VITALS: BP 140/75; PULSE 66; RESP 17; TEMP 36.4; O2SAT 95
--- NOTE | 2019-05-15 10:46 | PCM.PROGNOTE ---
Subjective: Hospitalist consult: The patient is a 79-year-old male with a past medical history of vascular dementia, cancer of the tongue, obstructive sleep apnea, hyperlipidemia, previous CVA with Left hemiparesis, Cervical canal stenosis, urinary incontinence and hypertension who had a fall at home on 05/01/2019 and sustained a minimally displaced R hip periprosthetic greater trochanteric fracture. The implants were stable. He was seen in consultation by Dr. Muñoz and he recommended 6 weeks of 50% partial weightbearing and no active abduction. He was transferred to the rehab floor at [facility] on 05/14/2019 for physical therapy and occupational therapy prior to returning home. He is afebrile and vital signs are stable. He is maintaining an appropriate oxygen saturation of 95 to 97% on room air All lab was personally reviewed. Hemoglobin dropped from 13.4 at admission to 11.1 on 01/12/2019. BUN was increased at 23 at admission with a creatinine of 0.85 and the current BUN is 17 with a creatinine of 0.71. The drop in hemoglobin is likely due to hydration. He had an x-ray of the right elbow on 05/14/2019 that was normal without evidence of fracture or dislocation. He denies pain in the R hip. Also denies SOB, N/V/abdominal pain. No lightheadedness. Good appetite. No constipation or diarrhea. - Physical Exam Vitals/I&O's: Vital Signs Temp Pulse Resp BP Pulse Ox 97.6 F L 66 17 140/75 H 95 05/15/19 09:01 05/15/19 09:01 05/15/19 09:01 05/15/19 09:01 05/15/19 09:01 Oxygen Delivery Method Room Air Weight: 95 lb Body Mass Index (BMI) 11.5 Finger Stick Blood Glucose 140 General: Alert, Cooperative, - - he can tell me that he is 79 but he was unable to tell me the year. 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 He is very pleasant and conversant. HEENT: Atraumatic, PERRLA, EOMI, Normocephalic Oral: Moist Mucosa, No Gingival or Mucosal Lesions/ Ulcerations Neck: Supple, No JVD, No Nodes, Carotid Bruits, Bilateral - vs radiation of the MM heard at the second RICS Lungs: Clear to auscultation, Normal air movement Cardiovascular: Regular rate, Regular Rhythm, Normal S1, Normal S2, Murmur - He has a 2/6 Systolic MM heard at the second RICS and it radiates to the LLSB and the apex., No Gallop Abdomen: Bowel Sounds Present, Soft, Non Tender, Non-Distended Extremities: No clubbing, No cyanosis, No edema, No Calf Tenderness Laboratory Results 05/15/19 06:08: WBC 5.3, RBC 3.65 L, Hgb 11.1 L, Hct 33.7 L, MCV 92.3, MCH 30.4, MCHC 32.9, RDW Std Deviation 42.4, RDW Coeff of Earline 12.7, Plt Count 131 L, MPV 10.2, Immature Gran % (Auto) 0.400, Neut % (Auto) 56.2, Lymph % (Auto) 32.4, [place] % (Auto) 7.3, Eos % (Auto) 3.0, Baso % (Auto) 0.7, Absolute Neuts (auto) 3.0, Absolute Lymphs (auto) 1.73, Nucleated RBC % 0 05/15/19 06:08: Sodium 138, Potassium 3.9, Chloride 104, Carbon Dioxide 29.0, Anion Gap 5, BUN 17, Creatinine 0.71, Estim Creat Clear Calc 37.11, Est GFR (MDRD) Af Amer 137, Est GFR (MDRD) Non-Af 113, BUN/Creatinine Ratio 23.8 H, Glucose 110 H, Calcium 8.7 Current Medications Acetaminophen (Tylenol) 650 mg PO Q4H PRN PRN PRN Reason: Pain Score 1-1010 Last Admin: 05/15/19 06:24 Dose: 650 mg Documented by: Amlodipine Besylate (Norvasc) 10 mg PO DAILY [facility] Last Admin: 05/15/19 07:48 Dose: 10 mg Documented by: Aspirin (Aspirin, Baby) 81 mg PO QHS [facility] Last Admin: 05/14/19 20:39 Dose: 81 mg Documented by: Bisacodyl (Dulcolax) 10 mg RECTAL .PRN X 1 PRN PRN Reason: Constipation Enoxaparin Sodium (Lovenox) 40 mg SC DAILY@0600 [facility] Last Admin: 05/15/19 06:24 Dose: 40 mg Documented by: Galantamine Hydrobromide (Razadyne) [facility] Last Admin: 05/15/19 07:47 Dose: 4 mg Documented by: Lisinopril (Zestril) 10 mg PO DAILY [facility] Last Admin: 05/15/19 07:49 Dose: 10 mg Documented by: Magnesium Hydroxide (Milk Of Magnesia) 30 ml PO .PRN X 1 PRN PRN Reason: Constipation Metformin HCl (Glucophage) 500 [facility] Last Admin: 05/15/19 07:45 Dose: 500 mg Documented by: Multivitamins/Minerals (Multivitamin With Minerals) 1 tablet PO DAILY@0800 [facility] Last Admin: 05/15/19 07:46 Dose: 1 tablet Documented by: Naproxen (Naprosyn) 500 mg PO DAILY PRN PRN Reason: .MIGRAINE SYMPTOMS Nutritional Formula (Lactose Free) (Glucerna Shake) 120 ml PO 4X/DAY [facility] Last Admin: 05/15/19 07:48 Dose: 120 ml Documented by: Oxycodone HCl (Oxyir) 5 mg PO Q4H PRN PRN PRN Reason: Pain Rizatriptan Benzoate (Maxalt) 10 mg PO DAILY PRN PRN Reason: MIGRAINE SYMPTOMS Rosuvastatin Calcium (Crestor) 10 mg PO MoFr@2200 [facility] Senna/Docusate Sodium (Senokot-S, Leslye-Colace) 2 tablet PO BID [facility] Last Admin: 05/15/19 07:48 Dose: 2 tablet Documented by: Vitamin E (Vitamin E) 400 units PO [facility]ILY[facility] Last Admin: 05/15/19 07:47 Dose: 400 units Documented by: Medical Necessity - Tobacco Use Smoking Status: Never smoker Tobacco Use: Non-smoker Assessment/Plan All Active Problems (Last Reviewed 02/01/18 @ 06:56 by Royer Maxwell MD) Numbness and tingling of right arm (Acute) Migraine (Acute) Closed right hip fracture (Acute) Debility (Acute) Mental status alteration (Acute) Generalized weakness (Acute) Impressions 1. Minimally displaced right trochanteric periprosthetic hip fracture resulting in debility 2. vascular dementia 3. History of cancer of the tongue 4. Obstructive sleep apnea 5. Hyperlipidemia 6. Previous CVA with left hemiparesis - resolved. He has 5/5 strength in all extremities at this time 7. Cervical canal stenosis 8. Urinary incontinence 9. Hypertension 10. N/N anemia - possibly due to blood loss with the fracture. 11. History of migraines on PRN Maxalt 12. Diabetes mellitus type 2 Recheck H/H in 1 week Vitamin D level in January 2019 was within normal limits at 62.7. Serum calcium is within normal limits. HGBA1C was 5.8% in January and he may not even need Glucophage any longer. Will check accu-checks BID and if they are all less than 150 will likely DC the Glucophage. ? why is has urinary incontinence? Will check post void residual and if he is retaining will start Flomax or change the Amlodipine to Cardura at HS. Code Visit Inpatient E&M: [id number] Subs Hosp L2
--- NOTE | 2019-05-15 12:30 | PCM.PN.NEU ---
Subjective: No issues overnight. Care discussed with the nursing staff. - Physical Exam Vitals/I&O's: Vital Signs Temp Pulse Resp BP Pulse Ox 97.6 F L 66 17 140/75 H 95 05/15/19 09:01 05/15/19 09:01 05/15/19 09:01 05/15/19 09:01 05/15/19 09:01 Oxygen Delivery Method Room Air Weight: 43.091 kg Body Mass Index (BMI) 11.5 Finger Stick Blood Glucose 140 General: Alert HEENT: Normocephalic Neck: Supple Lungs: Normal air movement Cardiovascular: Normal S1, Normal S2 Abdomen: Bowel Sounds Present Extremities: No cyanosis Neurological: - - Cranial nerves II-XII grossly intact, Deep Tendon Reflexes 2+/4 and Symmetrical, Neuro grossly intact, Motor Exam 5/5 strength throughout, Muscle tone normal, Sensory exam intact to light touch and pain, Coordination normal Psych/Mental Status: Normal Affect Laboratory Results 05/15/19 06:08: WBC 5.3, RBC 3.65 L, Hgb 11.1 L, Hct 33.7 L, MCV 92.3, MCH 30.4, MCHC 32.9, RDW Std Deviation 42.4, RDW Coeff of Earline 12.7, Plt Count 131 L, MPV 10.2, Immature Gran % (Auto) 0.400, Neut % (Auto) 56.2, Lymph % (Auto) 32.4, [place] % (Auto) 7.3, Eos % (Auto) 3.0, Baso % (Auto) 0.7, Absolute Neuts (auto) 3.0, Absolute Lymphs (auto) 1.73, Nucleated RBC % 0 05/15/19 06:08: Sodium 138, Potassium 3.9, Chloride 104, Carbon Dioxide 29.0, Anion Gap 5, BUN 17, Creatinine 0.71, Estim Creat Clear Calc 37.11, Est GFR (MDRD) Af Amer 137, Est GFR (MDRD) Non-Af 113, BUN/Creatinine Ratio 23.8 H, Glucose 110 H, Calcium 8.7 Current Medications Acetaminophen (Tylenol) 650 mg PO Q4H PRN PRN PRN Reason: Pain Score 1-10/10 Last Admin: 05/15/19 06:24 Dose: 650 mg Documented by: Amlodipine Besylate (Norvasc) 10 mg PO DAILY [facility] Last Admin: 05/15/19 07:48 Dose: 10 mg Documented by: Aspirin (Aspirin, Baby) 81 mg PO QHS [facility] Last Admin: 05/14/19 20:39 Dose: 81 mg Documented by: Bisacodyl (Dulcolax) 10 mg RECTAL .PRN X 1 PRN PRN Reason: Constipation Enoxaparin Sodium (Lovenox) 40 mg SC DAILY@0600 [facility] Last Admin: 05/15/19 06:24 Dose: 40 mg Documented by: Galantamine Hydrobromide (Razadyne) [facility] Last Admin: 05/15/19 07:47 Dose: 4 mg Documented by: Lisinopril (Zestril) 10 mg PO DAILY [facility] Last Admin: 05/15/19 07:49 Dose: 10 mg Documented by: Magnesium Hydroxide (Milk Of Magnesia) 30 ml PO .PRN X 1 PRN PRN Reason: Constipation Metformin HCl (Glucophage) [facility] Last Admin: 05/15/19 07:45 Dose: 500 mg Documented by: Multivitamins/Minerals (Multivitamin With Minerals) 1 tablet PO DAILY@0800 [facility] Last Admin: 05/15/19 07:46 Dose: 1 tablet Documented by: Naproxen (Naprosyn) 500 mg PO DAILY PRN PRN Reason: .MIGRAINE SYMPTOMS Nutritional Formula (Lactose Free) (Glucerna Shake) 120 ml PO 4X/DAY [facility] Last Admin: 05/15/19 07:48 Dose: 120 ml Documented by: Oxycodone HCl (Oxyir) 5 mg PO Q4H PRN PRN PRN Reason: Pain Rizatriptan Benzoate (Maxalt) 10 mg PO DAILY PRN PRN Reason: MIGRAINE SYMPTOMS Rosuvastatin Calcium (Crestor) 10 mg PO MoFr@2200 [facility] Senna/Docusate Sodium (Senokot-S, Leslye-Colace) 2 tablet PO BID [facility] Last Admin: 05/15/19 07:48 Dose: 2 tablet Documented by: Vitamin E (Vitamin E) 400 [facility] Last Admin: 05/15/19 07:47 Dose: 400 units Documented by: STROKE Vital Signs/Narrative: Vital Signs Temp Pulse Resp BP Pulse Ox 05/15/19 09:01 97.6 F L 66 17 140/75 H 95 Medical Necessity - Tobacco Use Smoking Status: Never smoker Tobacco Use: Non-smoker Assessment/Plan All Active Problems (Last Reviewed 02/01/18 @ 06:56 by Royer Maxwell MD) Numbness and tingling of right arm (Acute) Migraine (Acute) Closed right hip fracture (Acute) Debility (Acute) Mental status alteration (Acute) Generalized weakness (Acute) The patient is a 79 year old M [facility] HTN, HLD, DM, history of left MCA stroke in January 2017 status post IV TPA, history of vascular dementia, migraine, RAYNA on CPAP, history of tongue cancer status post lymph node resection admitted to [facility] on 05/14/2019 with debility secondary to minimally displaced fracture of the right greater trochanter at its junction with the femoral shaft, for greater than 3 hours of therapy daily with a goal of returning home at or near his prior level of independence. Patient was initially admitted to [facility] on 05/11/2019 with right hip pain status post fall was found to have minimally displaced fracture of the right greater trochanter at the junction with the femoral shaft, was managed conservatively per orthopedic recommendation, was seen by Dr. Muñoz who recommended 6 weeks of 50% partial weightbearing and no active abduction. Patient had a previous right hip fracture and hemiarthroplasty [place] [address] Davy Myers. At present patient denies any headache, dizziness, focal motor weakness, sensory loss, visual disturbances, speech disturbances, fever or chest pain. Patient lives with his , does not drive, was recently in physical therapy and used cane to ambulate, denies any frequent falls, lives in an independent house and has 4 steps to get into the house. Plan -PT for gait stability -OT for ADLs -Bowel protocol -Analgesics PRN -Right hip periprosthetic greater trochanteric hip fracture- minimally displaced, seen by Dr. Muñoz orthopedics, will defer further management to orthopedics, per Dr. Muñoz conservative management, 6 weeks of 50% partial weightbearing and no active abduction and follow up in office in 2 weeks -HTN-on lisinopril, amlodipine -HLD-on rosuvastatin -DM-on metformin -Stroke-on aspirin and rosuvastatin -Dementia-on galantamine -Migraines?avoid triptan's due to history of stroke -RAYNA on CPAP -GI/DVT prophylaxis- Pepcid/Lovenox, SCDs, KATIE hose -Fall precautions -Further medical management per hospitalist recommendations -Follow up with PCP, orthopedics Dr. Davy Myers/Dr Muñoz on discharge.
--- NOTE | 2019-05-15 12:33 | PCM.RU.PYE ---
Admission Information Status Changes from Prescreening?: No changes Identified Actual Problem List:: Falls, Mobility Impaired, Self Care Deficit Potential Problem List:: DVT, Bleeding, Infection, UTI, Aspiration, Falls, Skin Integrity, Depression Risk of Complications DVT: LMWH, KATIE Hose, Sequential Compression Device Bleeding: Monitor Lab Values, Nursing to Teach Precautions for anti-coagulation therapy., Wound, if applicable, to be assessed every shift., Stroke patients assessed for lethargy or change in status. Infection: Clinical Staff to Monitor for S/S of infection:, S/S of infection include fever, redness, warmth, etc. Urinary Tract Infection: Monitor for frequency, burning, discomfort, or incontinence., Nursing will obtain urine sample for urinalysis and C&S when ordered. Aspiration: Clinical staff will monitor for coughing, drooling, congestion., Speech will evaluate swallowing and dsyphasia., Nursing will monitor patient swallowing during meals. Falls: Patient will be evaluated for Fall Precautions, Patient will be placed on Fall Precautions as indicated per protocol. Skin Breakdown: Nursing will assess skin daily using assessment tool., Nursing will place on Skin Breakdown Precautions as indicated. Pain: Clinical staff will assess patient's pain level per protocol., Medications will be given, if needed, and the pain level reassessed., Other methods: Massage, distraction, decrease stimulus, etc. used PRN. Plan of Care Patient requires physician specializing in physical medicine and rehab oversight to provide close medical supervision of rehab issues including: Pain Management, Sleep Problems, Bowel and Bladder, Medical and co-morbidity Management, DVT prophylaxis, Rehabilitation Leadership, Coordination of treatment team Patient needs Physical Therapy: For a minimum of 1 hour, At least 5 out of 7 days Patient needs Physical Therapy to improve:: Mobility, Mobility, Mobility, Strengthening, Transfers, Stretching, ROM, Endurance, Stairs, Gait, Balance Patient needs Occupational Therapy: For a minimum of 1 hour, At least 5 out of 7 days Patient needs Occupational Therapy to improve ADL's incl.: Eating, Grooming, Bathing, Dressing, Toileting, Toilet transfers, Community Reintegration, Higher functioning activities, Household tasks, Adaptive Equipment, Splinting, Other activities as determined Patient requires speech therapy: For a minimum of 1 hour, At least 5 out of 7 days Patient requires speech therapy for: Swallowing, Cognition, Language Skills, Compensatory Strategies Patient requires / Rehabilitation Nursing for: Pain Issues, Identifying and preventing risk factors, Monitoring and reporting current medical conditions, Assisting with ambulation, transfer, and all ADL's, Teaching patients about disease process and medications, Family teaching, Providing safe environment, Bowel and Bladder Issues, Skin integrity, Medication Management Patient needs Light Industrial Supervisor/ Case Management for: Discharge Planning, Arranging Home Equipment or Services, Family Interventions Patient needs Dietary and Nutrition Services for: Adequate Nutrition, Nutritional Supplements, Nutritional Education Goals Patient will remain: free from falls, or injury at time of discharge. Patient will perform bed mobility at: MOD I level of assist. Patient will complete transfers from bed to chair at: MOD I level of assist. Patient will ambulate: 100 feet, with MOD I assist, with LRD Patient will complete upper body dressing at: MOD I level of assist. Patient will complete lower body dressing at: MOD I level of assist. Patient will complete toileting at: MOD I level of assist. Patient will perform bathing at: MOD I level of assist. Patient will complete grooming at: MOD I level of assist. Patient will complete home management skills at: MOD I level of assist. Patient will achieve: 12 stairs, at MOD I assist Patient will have pain level of: of 3 or less Patient's skin will: remain intact, free from infection. Patient will receive: adequate nutrition. Discharge Planning Pt Prognosis for Sig. Practical Improv. w/in Reasonable Time: Good Estimated Length of stay (days): 21 Anticipated D/C Destination: Home with Outpt Therapy Was Preadmission Assessment Accurate?: Yes
[2019-05-15 15:01] VITALS: BMI 11.5
[2019-05-15 17:16] LABS: Bedside Glucose 101 mg/dL (70-110)
[2019-05-15] MEDS: Aspirin 81 MG TAB.CHEW PO (19:55)
[2019-05-15 20:09] VITALS: BP 128/69; PULSE 71; RESP 16; TEMP 36.4; O2SAT 95
[2019-05-15 22:44] VITALS: BMI 11.5
--- NOTE | 2019-05-16 00:45 | NURSING ---
REVIEWED AND AGREE WITH MILK ROUTE DELIVERER'S FUNCTIONAL ASSESSMENT AND HANDOFF CHARTING.
[2019-05-16 06:07] VITALS: O2SAT 94
[2019-05-16] MEDS: Enoxaparin 40 MG/0.4 ML Syringe SC (06:12)
[2019-05-16 07:00] VITALS: BP 132/65; PULSE 68; RESP 16; TEMP 36.6; O2SAT 94
[2019-05-16 07:05] LABS: Bedside Glucose 115 mg/dL (70-110)
[2019-05-16] MEDS: Galantamine Hydrobromide 4 MG Tablet PO ×2 (08:05→17:55)
[2019-05-16] MEDS: Senna/Docusate Sodium 1 Tablet 2 TABLET PO ×2 (08:05→21:00)
[2019-05-16] MEDS: Glucerna Shake 120 ML LIQUID PO ×4 (08:05→21:00)
[2019-05-16] MEDS: Multivitamins,Ther W-Minerals Tablet 1 TABLET PO (08:05)
[2019-05-16] MEDS: amLODIPine 10 MG Tablet PO (08:05)
[2019-05-16] MEDS: metFORMIN HCl 500 MG Tablet PO ×2 (08:05→17:55)
[2019-05-16] MEDS: Famotidine 20 MG Tablet PO (08:05)
[2019-05-16] MEDS: Vitamin E 400 UNITS Capsule PO (08:05)
[2019-05-16] MEDS: Acetaminophen 325 MG Tablet 650 MG PO ×2 (08:06→14:08)
[2019-05-16] MEDS: Lisinopril 10 MG Tablet PO (08:06)
--- NOTE | 2019-05-16 09:41 | CASEMGMT ---
Social Work IDT met with patient and for Team Meeting. Discussed patient's progress in therapy. Pt is 50% WBS. Pt is sit to stand max x2-3, used lift seat cushion ma x1, CGAx1, walked 20 ft FWW min x1. It took multiple attempts to transfer pt from edge of ed to chair with max x2 with cues. Pt is mod assist for bathing x1-2 assist, set up for UE ADLs and grooming, total assist x2 LE dressing. With nursing, pt is max x4-5 for transfers/sitting to standing. ST will work with pt on orientation, memory strategies, safety awareness and speech intelligibility. Pt had procedure to removed cancer on right side of tongue and has not gotten full feeling back. Pt is mechanical soft texture diet with supervision during meals. The discharge goal is for pt to return home; however, pt is requiring a lot of assistance currently and cannot physically care for pt at home. informed HANDY Morales Commercial insurance is primary and Medicare A is secondary. Contacted [facility] and confirmed and will change in system. Director submitting for precert. Will continue to follow. Alissa Pacheco, [employer] CHIE[employer] PROCESS DEVELOPMENT ASSOCIATE
--- NOTE | 2019-05-16 10:10 | CASEMGMT ---
Social Work Director spoke with Carmen whom stated they are secondary and Medicare is primary. Relayed information to and pt. SW notified registration. Pt will continue under Medicare benefit. NATALIE ClementeW
[2019-05-16] MEDS: Menthol/Lanolin/Calamine/Znox 113 GM Tube 1 APPLIC TOPICAL ×2 (10:12→21:00)
--- NOTE | 2019-05-16 12:29 | PN.NEURO_ITS ---
Subjective: No issues overnight. Case discussed with the nursing staff. Staffed in the team meeting today. All questions were answered. Further therapy details per PT/OT/ST notes. - Physical Exam Vitals/I&O's: Vital Signs Temp Pulse Resp BP Pulse Ox 97.8 F 68 16 132/65 H 94 05/16/19 07:00 05/16/19 07:00 05/16/19 07:00 05/16/19 07:00 05/16/19 07:00 Oxygen Delivery Method Room Air Weight: 95 kg Body Mass Index (BMI) 11.5 Finger Stick Blood Glucose 140 Intake and Output for Last 24 Hours 05/14/19 05/15/19 05/16/19 23:59 23:59 23:59 Intake Total 240 / 240 Output Total 300 / 300 Balance -300 / -300 240 / 240 HEENT: Normocephalic Neck: Supple Lungs: Normal air movement Cardiovascular: Normal S1, Normal S2 Abdomen: Bowel Sounds Present Extremities: No cyanosis Neurological: Cranial nerves II-XII grossly intact, Deep Tendon Reflexes 2+/4 and Symmetrical, Motor Exam 5/5 strength throughout, Muscle tone normal, Sensory exam intact to light touch and pain, Coordination normal Psych/Mental Status: Normal Affect Laboratory Results 05/15/19 17:00: POC Glucose 101 05/16/19 06:16: POC Glucose 115 H Current Medications Acetaminophen (Tylenol) 650 mg PO Q4H PRN PRN PRN Reason: Pain Score 1-10/10 Last Admin: 05/16/19 08:06 Dose: 650 mg Documented by: Amlodipine Besylate (Norvasc) 10 mg PO DAILY [facility] Last Admin: 05/16/19 08:05 Dose: 10 mg Documented by: Aspirin (Aspirin, Baby) 81 mg PO QHS [facility] Last Admin: 05/15/19 19:55 Dose: 81 mg Documented by: Bisacodyl (Dulcolax) 10 mg RECTAL .PRN X 1 PRN PRN Reason: Constipation Calamine/Phenol (Calmoseptine Ointment) 1 applic TOPICAL BID [facility]; Protocol Last Admin: 05/16/19 10:12 Dose: 1 applicatio Documented by: Enoxaparin Sodium (Lovenox) 40 mg SC DAILY@0600 [facility] Last Admin: 05/16/19 06:12 Dose: 40 mg Documented by: Famotidine (Pepcid) 20 mg PO DAILY [facility] Last Admin: 05/16/19 08:05 Dose: 20 mg Documented by: Galantamine [facility] ([facility]) [facility] Last Admin: 05/16/19 08:05 Dose: 4 mg Documented by: Lisinopril (Zestril) 10 mg PO DAILY [facility] Last Admin: 05/16/19 08:06 Dose: 10 mg Documented by: Magnesium Hydroxide (Milk Of Magnesia) 30 ml PO .PRN X 1 PRN PRN Reason: Constipation Metformin [facility] (Glucophage) [facility] Last Admin: 05/16/19 08:05 Dose: 500 mg Documented by: Multivitamins/Minerals (Multivitamin With Minerals) 1 tablet PO DAILY@0800 [facility] Last Admin: 05/16/19 08:05 Dose: 1 tablet Documented by: Naproxen (Naprosyn) 500 mg PO DAILY PRN PRN Reason: .MIGRAINE SYMPTOMS Nutritional Formula (Lactose Free) (Glucerna Shake) 120 ml PO 4X/DAY [facility] Last Admin: 05/16/19 08:05 Dose: 120 ml Documented by: Oxycodone HCl (Oxyir) 5 mg PO Q4H PRN PRN PRN Reason: Pain Rizatriptan Benzoate (Maxalt) 10 mg PO DAILY PRN PRN Reason: MIGRAINE SYMPTOMS Rosuvastatin Calcium (Crestor) 10 mg PO MoFr@2200 [facility] Senna/Docusate Sodium (Senokot-S, Leslye-Colace) 2 tablet PO BID [facility] Last Admin: 05/16/19 08:05 Dose: 2 tablet Documented by: Vitamin E (Vitamin E) [facility] Last Admin: 05/16/19 08:05 Dose: 400 units Documented by: Medical Necessity - Tobacco Use Smoking Status: Never smoker Tobacco Use: Non-smoker Assessment/Plan All Active Problems (Last Reviewed 02/01/18 @ 06:56 by Royer Maxwell MD) Numbness and tingling of right arm (Acute) Migraine (Acute) Closed right hip fracture (Acute) Debility (Acute) Mental status alteration (Acute) Generalized weakness (Acute) The patient is a 79 year old M PMH HTN, HLD, DM, history 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 Patient was initially admitted to [facility] on 05/11/2019 with right hip pain status post fall was found to have minimally displaced fracture of the right greater trochanter at the junction with the femoral shaft, was managed conservatively per orthopedic recommendation, was seen by Dr. Muñoz who recommended 6 weeks of 50% partial weightbearing and no active abduction. Patient had a previous right hip fracture and hemiarthroplasty [place] [address] Davy Myers. At present patient denies any headache, dizziness, focal motor weakness, sensory loss, visual disturbances, speech disturbances, fever or chest pain. Patient lives with his , does not drive, was recently in physical therapy and used cane to ambulate, denies any frequent falls, lives in an independent house and has 4 steps to get into the house. Plan -PT for gait stability -OT for ADLs -Bowel protocol -Analgesics PRN -Right hip periprosthetic greater trochanteric hip fracture- minimally displaced, seen by Dr. Muñoz orthopedics, will defer further management to orthopedics, per Dr. Muñoz conservative management, 6 weeks of 50% partial weightbearing and no active abduction and follow up in office in 2 weeks -HTN-on lisinopril, amlodipine -HLD-on rosuvastatin -DM-on metformin -Stroke-on aspirin and rosuvastatin -Dementia-on galantamine -Migraines?avoid triptan's due to history of stroke -RAYNA on CPAP -GI/DVT prophylaxis- Pepcid/Lovenox, SCDs, KATIE hose -Fall precautions -Further medical management per hospitalist recommendations -Follow up with PCP, orthopedics Dr. Davy Myers/Dr Muñoz on discharge.
[2019-05-16 15:12] VITALS: BMI 11.5
[2019-05-16 17:15] LABS: Bedside Glucose 100 mg/dL (70-110)
[2019-05-16] MEDS: Aspirin 81 MG TAB.CHEW PO (21:00)
[2019-05-16 21:06] VITALS: BP 134/59; PULSE 73; RESP 18; TEMP 36.4; O2SAT 97
[2019-05-16 22:45] VITALS: BMI 11.5
--- NOTE | 2019-05-17 01:36 | NURSING ---
REVIEWED AND AGREE WITH ALTITUDE CHAMBER TECHNICIAN'S FUNCTIONAL AND HANDOFF CHARTING.
[2019-05-17] MEDS: Enoxaparin 40 MG/0.4 ML Syringe SC (05:33)
[2019-05-17 06:50] LABS: Bedside Glucose 102 mg/dL (70-110)
[2019-05-17 07:14] VITALS: BP 122/65; PULSE 66; RESP 18; TEMP 36.6; O2SAT 94
[2019-05-17 07:18] VITALS: O2SAT 94
[2019-05-17] MEDS: Multivitamins,Ther W-Minerals Tablet 1 TABLET PO (07:56)
[2019-05-17] MEDS: Vitamin E 400 UNITS Capsule PO (07:56)
[2019-05-17] MEDS: Glucerna Shake 120 ML LIQUID PO ×4 (07:56→20:57)
[2019-05-17] MEDS: amLODIPine 10 MG Tablet PO (07:56)
[2019-05-17] MEDS: Senna/Docusate Sodium 1 Tablet 2 TABLET PO (07:56)
[2019-05-17] MEDS: Galantamine Hydrobromide 4 MG Tablet PO ×2 (07:56→17:20)
[2019-05-17] MEDS: Famotidine 20 MG Tablet PO (07:56)
[2019-05-17] MEDS: metFORMIN HCl 500 MG Tablet PO ×2 (07:56→17:20)
[2019-05-17] MEDS: Lisinopril 10 MG Tablet PO (07:56)
[2019-05-17] MEDS: Acetaminophen 325 MG Tablet 650 MG PO ×3 (08:54→17:20)
[2019-05-17] MEDS: Menthol/Lanolin/Calamine/Znox 113 GM Tube 1 APPLIC TOPICAL ×2 (09:10→20:57)
--- NOTE | 2019-05-17 13:13 | PN.NEURO_ITS ---
Subjective: No issues overnight. Care discussed with the nursing staff. - Physical Exam Vitals/I&O's: Vital Signs Temp Pulse Resp BP Pulse Ox 98 F 66 18 122/65 H 94 05/17/19 07:14 05/17/19 07:14 05/17/19 07:14 05/17/19 07:14 05/17/19 07:18 Oxygen Delivery Method Room Air Weight: 95 kg Body Mass Index (BMI) 11.5 Finger Stick Blood Glucose 140 Intake and Output for Last 24 Hours 05/15/19 05/16/19 05/17/19 23:59 23:59 23:59 Intake Total 240 / 240 360 / 360 Output Total 300 / 300 Balance -300 / -300 240 / 240 360 / 360 General: Alert HEENT: Normocephalic Neck: Supple Lungs: Normal air movement Cardiovascular: Normal S1, Normal S2 Abdomen: Bowel Sounds Present Extremities: No cyanosis Neurological: Cranial nerves II-XII grossly intact, Deep Tendon Reflexes 2+/4 and Symmetrical, Neuro grossly intact, Motor Exam 5/5 strength throughout, Muscle tone normal, Sensory exam intact to light touch and pain, Coordination normal Psych/Mental Status: Normal Affect Laboratory Results 05/16/19 17:04: POC Glucose 100 05/17/19 06:45: POC Glucose 102 Current Medications Acetaminophen (Tylenol) 650 mg PO Q4H PRN PRN PRN Reason: Pain Score 1-10/10 Last Admin: 05/17/19 08:54 Dose: 650 mg Documented by: Amlodipine Besylate (Norvasc) 10 mg PO DAILY [facility] Last Admin: 05/17/19 07:56 Dose: 10 mg Documented by: Aspirin (Aspirin, Baby) 81 mg PO QHS [facility] Last Admin: 05/16/19 21:00 Dose: 81 mg Documented by: Bisacodyl (Dulcolax) 10 mg RECTAL .PRN X 1 PRN PRN Reason: Constipation Calamine/Phenol (Calmoseptine Ointment) 1 applic TOPICAL BID [facility]; Protocol Last Admin: 05/17/19 09:10 Dose: 1 applicatio Documented by: Enoxaparin Sodium (Lovenox) 40 mg SC DAILY@0600 [facility] Last Admin: 05/17/19 05:33 Dose: 40 mg Documented by: Famotidine (Pepcid) 20 mg PO DAILY [facility] Last Admin: 05/17/19 07:56 Dose: 20 mg Documented by: Galantamine Hydrobromide (Razadyne) [facility] Last Admin: 05/17/19 07:56 Dose: 4 mg Documented by: Lisinopril (Zestril) 10 mg PO DAILY [facility] Last Admin: 05/17/19 07:56 Dose: 10 mg Documented by: Magnesium Hydroxide (Milk Of Magnesia) 30 ml PO .PRN X 1 PRN PRN Reason: Constipation Metformin HCl (Glucophage) [facility] Last Admin: 05/17/19 07:56 Dose: 500 mg Documented by: Multivitamins/Minerals (Multivitamin With Minerals) 1 tablet PO DAILY@0800 [facility] Last Admin: 05/17/19 07:56 Dose: 1 tablet Documented by: Naproxen (Naprosyn) 500 mg PO DAILY PRN PRN Reason: .MIGRAINE SYMPTOMS Nutritional Formula (Lactose Free) (Glucerna Shake) 120 ml PO 4X/DAY [facility] Last Admin: 05/17/19 07:56 Dose: 120 ml Documented by: Oxycodone HCl (Oxyir) 5 mg PO Q4H PRN PRN PRN Reason: Pain Rosuvastatin Calcium (Crestor) 10 mg PO MoFr@2200 [facility] Senna/Docusate Sodium (Senokot-S, Leslye-Colace) 2 tablet PO BID [facility] Last Admin: 05/17/19 07:56 Dose: 2 tablet Documented by: Vitamin E (Vitamin E) [facility] Last Admin: 05/17/19 07:56 Dose: 400 units Documented by: Medical Necessity - Tobacco Use Smoking Status: Never smoker Tobacco Use: Non-smoker Assessment/Plan All Active Problems (Last Reviewed 02/01/18 @ 06:56 by Royer Maxwell MD) Numbness and tingling of right arm (Acute) Migraine (Acute) Closed right hip fracture (Acute) Debility (Acute) Mental status alteration (Acute) Generalized weakness (Acute) The patient is a 79 year old M PMH HTN, HLD, DM, 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 Patient was initially admitted to [facility] on 05/11/2019 with right hip pain status post fall was found to have minimally displaced fracture of the right greater trochanter at the junction with the femo ral shaft, was managed conservatively per orthopedic recommendation, was seen by Dr. Muñoz who recommended 6 weeks of 50% partial weightbearing and no active abduction. Patient had a previous right hip fracture and hemiarthroplasty [place] [address] Davy Myers. At present patient denies any headache, dizziness, focal motor weakness, sensory loss, visual disturbances, speech disturbances, fever or chest pain. Patient lives with his , does not drive, was recently in physical therapy and used cane to ambulate, denies any frequent falls, lives in an independent house and has 4 steps to get into the house. Plan -PT for gait stability -OT for ADLs -Bowel protocol -Analgesics PRN -Right hip periprosthetic greater trochanteric hip fracture- minimally displaced, seen by Dr. Muñoz orthopedics, will defer further management to orthopedics, per Dr. Muñoz conservative management, 6 weeks of 50% partial weightbearing and no active abduction and follow up in office in 2 weeks -HTN-on lisinopril, amlodipine -HLD-on rosuvastatin -DM-on metformin -Stroke-on aspirin and rosuvastatin -Dementia-on galantamine -Migraines?avoid triptan's due to history of stroke -RAYNA on CPAP -GI/DVT prophylaxis- Pepcid/Lovenox, SCDs, KATIE hose -Fall precautions -Further medical management per hospitalist recommendations -Follow up with PCP, orthopedics Dr. Davy Myers/Dr Muñoz on discharge.
[2019-05-17 14:04] VITALS: BMI 11.5
[2019-05-17 17:01] LABS: Bedside Glucose 133 mg/dL (70-110)
[2019-05-17] MEDS: Aspirin 81 MG TAB.CHEW PO (20:57)
[2019-05-17 21:29] VITALS: BP 113/58; PULSE 76; RESP 16; TEMP 36.8; O2SAT 94
[2019-05-17 21:43] VITALS: BMI 11.5
[2019-05-17] MEDS: oxyCODONE 5 MG Tablet PO (22:02)
[2019-05-18] MEDS: Enoxaparin 40 MG/0.4 ML Syringe SC (05:54)
[2019-05-18 06:51] LABS: Bedside Glucose 108 mg/dL (70-110)
[2019-05-18] MEDS: Lisinopril 10 MG Tablet PO (07:55)
[2019-05-18] MEDS: Multivitamins,Ther W-Minerals Tablet 1 TABLET PO (07:56)
[2019-05-18] MEDS: Vitamin E 400 UNITS Capsule PO (07:56)
[2019-05-18] MEDS: oxyCODONE 5 MG Tablet PO ×2 (07:56→20:57)
[2019-05-18] MEDS: metFORMIN HCl 500 MG Tablet PO ×2 (07:56→16:32)
[2019-05-18] MEDS: amLODIPine 10 MG Tablet PO (07:56)
[2019-05-18] MEDS: Galantamine Hydrobromide 4 MG Tablet PO ×2 (07:56→16:32)
[2019-05-18] MEDS: Famotidine 20 MG Tablet PO (07:56)
[2019-05-18 07:59] VITALS: BP 132/68; PULSE 70; RESP 16; TEMP 36.6; O2SAT 94
[2019-05-18] MEDS: Menthol/Lanolin/Calamine/Znox 113 GM Tube 1 APPLIC TOPICAL ×2 (07:59→20:59)
[2019-05-18] MEDS: Glucerna Shake 120 ML LIQUID PO ×3 (08:00→20:50)
[2019-05-18 11:27] VITALS: BMI 11.5
[2019-05-18 18:16] LABS: Bedside Glucose 144 mg/dL (70-110)
[2019-05-18 18:33] VITALS: BP 127/70; PULSE 78; RESP 16; TEMP 36.6; O2SAT 95
[2019-05-18] MEDS: Senna/Docusate Sodium 1 Tablet 2 TABLET PO (20:49)
[2019-05-18] MEDS: Aspirin 81 MG TAB.CHEW PO (20:49)
[2019-05-18 23:40] VITALS: BMI 11.5
[2019-05-19] MEDS: Enoxaparin 40 MG/0.4 ML Syringe SC (06:13)
[2019-05-19 07:10] LABS: Bedside Glucose 101 mg/dL (70-110)
[2019-05-19 07:32] VITALS: BP 108/65; PULSE 64; RESP 18; TEMP 36.5; O2SAT 94
[2019-05-19 07:56] VITALS: BP 132/68; PULSE 68
[2019-05-19] MEDS: Menthol/Lanolin/Calamine/Znox 113 GM Tube 1 APPLIC TOPICAL ×2 (07:57→21:41)
[2019-05-19] MEDS: Galantamine Hydrobromide 4 MG Tablet PO ×2 (07:57→17:06)
[2019-05-19] MEDS: Multivitamins,Ther W-Minerals Tablet 1 TABLET PO (07:57)
[2019-05-19] MEDS: Vitamin E 400 UNITS Capsule PO (07:57)
[2019-05-19] MEDS: metFORMIN HCl 500 MG Tablet PO ×2 (07:57→17:06)
[2019-05-19] MEDS: Lisinopril 10 MG Tablet PO (07:58)
[2019-05-19] MEDS: Senna/Docusate Sodium 1 Tablet 2 TABLET PO ×2 (07:58→21:41)
[2019-05-19] MEDS: amLODIPine 10 MG Tablet PO (07:58)
[2019-05-19] MEDS: Glucerna Shake 120 ML LIQUID PO ×2 (07:58→17:06)
[2019-05-19] MEDS: Famotidine 20 MG Tablet PO (07:58)
[2019-05-19 08:36] VITALS: BMI 11.5
[2019-05-19] MEDS: oxyCODONE 5 MG Tablet PO ×2 (09:31→14:54)
[2019-05-19 21:35] VITALS: BP 145/73; PULSE 64; RESP 16; TEMP 36.6; O2SAT 97; BMI 11.5
[2019-05-19] MEDS: Aspirin 81 MG TAB.CHEW PO (21:41)
[2019-05-19] MEDS: Acetaminophen 325 MG Tablet 650 MG PO (21:41)
[2019-05-19 22:05] LABS: Bedside Glucose 120 mg/dL (70-110)
[2019-05-20] MEDS: Enoxaparin 40 MG/0.4 ML Syringe SC (05:37)
[2019-05-20] MEDS: oxyCODONE 5 MG Tablet PO ×2 (05:38→10:22)
[2019-05-20 06:36] LABS: Bedside Glucose 95 mg/dL (70-110)
[2019-05-20 07:16] LABS: Bedside Glucose 99 mg/dL (70-110)
[2019-05-20 07:35] VITALS: BP 126/71; PULSE 61; RESP 16; TEMP 36.4; O2SAT 94
[2019-05-20] MEDS: Lisinopril 10 MG Tablet PO (07:46)
[2019-05-20] MEDS: Senna/Docusate Sodium 1 Tablet 2 TABLET PO ×2 (07:46→21:57)
[2019-05-20] MEDS: metFORMIN HCl 500 MG Tablet PO (07:46)
[2019-05-20] MEDS: Multivitamins,Ther W-Minerals Tablet 1 TABLET PO (07:46)
[2019-05-20] MEDS: Famotidine 20 MG Tablet PO (07:46)
[2019-05-20] MEDS: Vitamin E 400 UNITS Capsule PO (07:46)
[2019-05-20] MEDS: Galantamine Hydrobromide 4 MG Tablet PO ×2 (07:46→16:41)
[2019-05-20] MEDS: amLODIPine 10 MG Tablet PO (07:46)
[2019-05-20] MEDS: Menthol/Lanolin/Calamine/Znox 113 GM Tube 1 APPLIC TOPICAL ×2 (07:49→21:56)
[2019-05-20] MEDS: Acetaminophen 325 MG Tablet 650 MG PO ×2 (08:50→16:02)
--- NOTE | 2019-05-20 10:20 | PCM.PROGNOTE ---
Subjective: Hospitalist note: Afebrile since admission Vital signs are stable He is maintaining an appropriate oxygen saturation on room air that ranges from 94 to 97%. Blood sugars are well controlled without hypoglycemia. He is taking metformin 500 mg twice daily. He is eating well and consumes generally 75 to 100% of his meals. He is complaining of hip and knee pain today and wants to go to bed. He tells me that the pain medication helps when he gets it. He denies cough, shortness of breath, abdominal pain, calf pain. Tells me his bowels are working fine. Denies dysuria. He states he is incontinent of urine since his stroke but this is because he is unable to get to the bathroom in time. Postvoid residuals are less than 200. Denies lightheadedness. - Physical Exam Vitals/I&O's: Vital Signs Temp Pulse Resp BP Pulse Ox 97.6 F L 61 16 126/71 H 94 05/20/19 07:35 05/20/19 07:35 05/20/19 07:35 05/20/19 07:35 05/20/19 07:35 Oxygen Delivery Method Room Air Weight: 209 lb 7.026 oz Body Mass Index (BMI) 11.5 Finger Stick Blood Glucose 140 Intake and Output for Last 24 Hours 05/18/19 05/19/19 05/20/19 23:59 23:59 23:59 Intake Total 500 / 500 480 / 480 240 / 240 Balance 500 / 500 480 / 480 240 / 240 General: Alert, Cooperative, - - Appears tired. Short term memory is poor. HEENT: EOMI, - - Pupils are equal round reactive to light. Oral: No Gingival or Mucosal Lesions/ Ulcerations, Dry Mucosa Neck: No JVD Lungs: Clear to auscultation Cardiovascular: Regular rate, Regular Rhythm, Normal S1, Normal S2, Murmur - The 2/6 systolic murmur at the second right intercostal space and there is radiation to the left ventricular outflow tract, lower left sternal border and apex., No rub noted, No Gallop Abdomen: Bowel Sounds Present, Soft, Non Tender, Non-Distended Extremities: No edema, No Calf Tenderness Skin: No rashes Neurological: Cranial nerves II-XII grossly intact, Neuro grossly intact Psych/Mental Status: Flat Affect, - - affect is more flat today and he does not seem motivated to do PT. Seems more depressed. Oral inake has not been that great. Laboratory Results 05/19/19 21:45: POC Glucose 120 H 05/20/19 06:33: POC Glucose 95 05/20/19 06:55: POC Glucose 99 Current Medications Acetaminophen (Tylenol) 650 mg PO Q4H PRN PRN PRN Reason: Pain Score 1-1010 Last Admin: 05/20/19 08:50 Dose: 650 mg Documented by: Amlodipine Besylate (Norvasc) 10 mg PO DAILY [facility] Last Admin: 05/20/19 07:46 Dose: 10 mg Documented by: Aspirin (Aspirin, Baby) 81 mg PO QHS [facility] Last Admin: 05/19/19 21:41 Dose: 81 mg Documented by: Bisacodyl (Dulcolax) 10 mg RECTAL .PRN X 1 PRN PRN Reason: Constipation Calamine/Phenol (Calmoseptine Ointment) 1 applic TOPICAL BID [facility]; Protocol Last Admin: 05/20/19 07:49 Dose: 1 applicatio Documented by: Enoxaparin Sodium (Lovenox) 40 mg SC DAILY@0600 [facility] Last Admin: 05/20/19 05:37 Dose: 40 mg Documented by: Famotidine (Pepcid) 20 mg PO DAILY [facility] Last Admin: 05/20/19 07:46 Dose: 20 mg Documented by: Galantamine Hydrobromide (Razadyne) 4 mg PO BIDCM [facility] Last Admin: 05/20/19 07:46 Dose: 4 mg Documented by: Lisinopril (Zestril) 10 mg PO DAILY [facility] Last Admin: 05/20/19 07:46 Dose: 10 mg Documented by: Magnesium Hydroxide (Milk Of Magnesia) 30 ml PO .PRN X 1 PRN PRN Reason: Constipation Metformin HCl (Glucophage) 500 mg PO BIDCM [facility] Last Admin: 05/20/19 07:46 Dose: 500 mg Documented by: Multivitamins/Minerals (Multivitamin With Minerals) 1 tablet PO DAILY@0800 [facility] Last Admin: 05/20/19 07:46 Dose: 1 tablet Documented by: Naproxen (Naprosyn) 500 mg PO DAILY PRN PRN Reason: .MIGRAINE SYMPTOMS Nutritional Formula (Lactose Free) (Glucerna Shake) 120 ml PO 4X/DAY [facility] Last Admin: 05/20/19 10:04 Dose: Not Given Documented by: Oxycodone HCl (Oxyir) 5 mg PO Q4H PRN PRN PRN Reason: Pain Score 1-04/04 Last Admin: 05/20/19 05:38 Dose: 5 mg Documented by: Rosuvastatin Calcium (Crestor) 10 mg PO MoFr@2200 [facility] Last Admin: 05/17/19 20:57 Dose: 10 mg Documented by: Senna/Docusate Sodium (Senokot-S, Leslye-Colace) 2 tablet PO BID [facility] Last Admin: 05/20/19 07:46 Dose: 2 tablet Documented by: Vitamin E (Vitamin E) 400 units PO DAILYCM [facility] Last Admin: 05/20/19 07:46 Dose: 400 units Documented by: Medical Necessity - Tobacco Use Smoking Status: Never smoker Tobacco Use: Non-smoker Assessment/Plan All Active Problems (Last Reviewed 02/01/18 @ 06:56 by Royer Maxwell MD) Numbness and tingling of right arm (Acute) Migraine (Acute) Closed right hip fracture (Acute) Debility (Acute) Mental status alteration (Acute) Generalized weakness (Acute) Impressions 1. Minimally displaced right trochanteric periprosthetic hip fracture resulting in debility - he has weakness on the left side due to prior stroke 2. vascular dementia 3. History of cancer of the tongue 4. Obstructive sleep apnea - wears his CPAP at night 5. Hyperlipidemia 6. Previous CVA with left hemiparesis 7. Cervical canal stenosis 8. Urinary incontinence - no high residuals. Can not get there in time, knows when he as to go 9. Hypertension - controlled 10. N/N anemia - possibly due to blood loss with the fracture. 11. History of migraines on PRN Maxalt 12. Diabetes mellitus type 2 - very well controlled 13. suspected depression continue current care. start Sertraline in the AM Continue to monitor the oral intake. Check orthostatics in the AM Check a BMP and CBC in the AM Code Visit Inpatient E&M: 97419 Subs Hosp L2
--- NOTE | 2019-05-20 12:28 | PN.NEURO_ITS ---
Subjective: No issues overnight. Care discussed with the nursing staff. Per patient he has some mild left knee pain this morning, on analgesics as needed. - Physical Exam Vitals/I&O's: Vital Signs Temp Pulse Resp BP Pulse Ox 97.6 F L 61 16 126/71 H 94 05/20/19 07:35 05/20/19 07:35 05/20/19 07:35 05/20/19 07:35 05/20/19 07:35 Oxygen Delivery Method Room Air Weight: 95 kg Body Mass Index (BMI) 11.5 Finger Stick Blood Glucose 140 Intake and Output for Last 24 Hours 05/18/19 05/19/19 05/20/19 23:59 23:59 23:59 Intake Total 500 / 500 480 / 480 240 / 240 Balance 500 / 500 480 / 480 240 / 240 General: Alert HEENT: Normocephalic Neck: Supple Lungs: Normal air movement Cardiovascular: Normal S1, Normal S2 Abdomen: Bowel Sounds Present Extremities: No cyanosis Neurological: Cranial nerves II-XII grossly intact, Deep Tendon Reflexes 2+/4 and Symmetrical, Neuro grossly intact, Motor Exam 5/5 strength throughout, Muscle tone normal, Sensory exam intact to light touch and pain, Coordination normal Psych/Mental Status: Normal Affect Laboratory Results 05/19/19 21:45: POC Glucose 120 H 05/20/19 06:33: POC Glucose 95 05/20/19 06:55: POC Glucose 99 Current Medications Acetaminophen (Tylenol) 650 mg PO Q4H PRN PRN PRN Reason: Pain Score 1-10/10 Last Admin: 05/20/19 08:50 Dose: 650 mg Documented by: Amlodipine Besylate (Norvasc) 10 mg PO DAILY [facility] Last Admin: 05/20/19 07:46 Dose: 10 mg Documented by: Aspirin (Aspirin, Baby) 81 mg PO QHS [facility] Last Admin: 05/19/19 21:41 Dose: 81 mg Documented by: Bisacodyl (Dulcolax) 10 mg RECTAL .PRN X 1 PRN PRN Reason: Constipation Calamine/Phenol (Calmoseptine Ointment) 1 applic TOPICAL BID [facility]; Protocol Last Admin: 05/20/19 07:49 Dose: 1 applicatio Documented by: Enoxaparin Sodium (Lovenox) 40 mg SC DAILY@0600 [facility] Last Admin: 05/20/19 05:37 Dose: 40 mg Documented by: Famotidine (Pepcid) 20 mg PO DAILY [facility] Last Admin: 05/20/19 07:46 Dose: 20 mg Documented by: Galantamine [facility]brom[facility] ([facility]) [facility] Last Admin: 05/20/19 07:46 Dose: 4 mg Documented by: Lisinopril (Zestril) 10 mg PO DAILY [facility] Last Admin: 05/20/19 07:46 Dose: 10 mg Documented by: Magnesium Hydroxide (Milk Of Magnesia) 30 ml PO .PRN X 1 PRN PRN Reason: Constipation Metformin HCl (Glucophage) 500 mg PO DAILY@1700 [facility] Multivitamins/Minerals (Multivitamin With Minerals) 1 tablet PO DAILY@0800 [facility] Last Admin: 05/20/19 07:46 Dose: 1 tablet Documented by: Naproxen (Naprosyn) 500 mg PO DAILY PRN PRN Reason: .MIGRAINE SYMPTOMS Nutritional Formula (Lactose Free) (Glucerna Shake) 120 ml PO 4X/DAY [facility] Last Admin: 05/20/19 10:04 Dose: Not Given Documented by: Oxycodone HCl (Oxyir) 5 mg PO Q4H PRN PRN PRN Reason: Pain Score 1-10/10 Last Admin: 05/20/19 10:22 Dose: 5 mg Documented by: Rosuvastatin Calcium (Crestor) 10 mg PO MoFr@2200 [facility] Last Admin: 05/17/19 20:57 Dose: 10 mg Documented by: Senna/Docusate Sodium (Senokot-S, Leslye-Colace) 2 tablet PO BID [facility] Last Admin: 05/20/19 07:46 Dose: 2 tablet Documented by: Sertraline HCl (Zoloft) 50 mg PO DAILY [facility] Vitamin E (Vitamin E) [facility] Last Admin: 05/20/19 07:46 Dose: 400 units Documented by: Medical Necessity - Tobacco Use Smoking Status: Never smoker Tobacco Use: Non-smoker Assessment/Plan All Active Problems (Last Reviewed 02/01/18 @ 06:56 by Royer Maxwell MD) Numbness and tingling of right arm (Acute) Migraine (Acute) Closed right hip fracture (Acute) Debility (Acute) Mental status alteration (Acute) Generalized weakness (Acute) The patient is a 79 year old M [facility] HTN, HLD, DM, 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 Patient was initially admitted to [facility] on 05/11/2019 with right hip pain status post fall was found to have minimally displaced fracture of the right greater trochanter at the junction with the femoral shaft, was managed conservatively per orthopedic recommendation, was seen by Dr. Muñoz who recommended 6 weeks of 50% partial weightbearing and no active abduction. Patient had a previous right hip fracture and hemiarthroplasty [place] [address] Davy Myers. At present patient denies any headache, dizziness, focal motor weakness, sensory loss, visual disturbances, speech disturbances, fever or chest pain. Patient lives with his , does not drive, was recently in physical therapy and used cane to ambulate, denies any frequent falls, lives in an independent house and has 4 steps to get into the house. Plan -PT for gait stability -OT for ADLs -Bowel protocol -Analgesics PRN -Right hip periprosthetic greater trochanteric hip fracture- minimally displac ed, seen by Dr. Muñoz orthopedics, will defer further management to orthopedics, per Dr. Muñoz conservative management, 6 weeks of 50% partial weightbearing and no active abduction and follow up in office in 2 weeks -HTN-on lisinopril, amlodipine -HLD-on rosuvastatin -DM-on metformin -Stroke-on aspirin and rosuvastatin -Dementia-on galantamine -Migraines?avoid triptan's due to history of stroke -Started on sertraline by hospitalist -RAYNA on CPAP -GI/DVT prophylaxis- Pepcid/Lovenox, SCDs, KATIE hose -Fall precautions -Further medical management per hospitalist recommendations -Follow up with PCP, orthopedics Dr. Davy Myers/Dr Muñoz on discharge.
[2019-05-20] MEDS: Glucerna Shake 120 ML LIQUID PO ×3 (13:14→21:58)
[2019-05-20] MEDS: Sertraline 50 MG Tablet PO (13:14)
--- NOTE | 2019-05-20 13:40 | RAD_ITS ---
STUDY: X-RAY - PELVIS AND RIGHT HIP REASON FOR EXAM: Right hip pain. TECHNIQUE: 2 views of the pelvis and hip. COMPARISON: Radiographs 05/11/2019 and 06/09/2017. FINDINGS: There is vascular calcification. Normal bilateral iliac wings, sacroiliac joints and visualized sacrum. Normal bilateral superior and inferior pubic rami. Normal pubic symphysis. Normal bilateral ischial tuberosities. There is a right hip arthroplasty with a mildly displaced fracture of the right greater trochanter similar to the prior study, best evaluated on the frog-leg view. RAD/HIP, UNI W/ Pelvis 2-3 Views IMPRESSION: Right hip arthroplasty with mildly displaced fracture of the right greater trochanter. Electronically Signed: Freddy Street MD at 14:15 EST Tel , Service support ,
[2019-05-20 14:39] VITALS: BMI 11.5
[2019-05-20 17:46] LABS: Bedside Glucose 157 mg/dL (70-110)
[2019-05-20 20:29] VITALS: BP 136/70; PULSE 65; RESP 16; TEMP 36.6; O2SAT 95
[2019-05-20] MEDS: Aspirin 81 MG TAB.CHEW PO (21:57)
[2019-05-20 22:00] VITALS: PULSE 65; RESP 16; O2SAT 95; BMI 11.5
--- NOTE | 2019-05-21 03:24 | NURSING ---
REVIEWED AND AGREE WITH OCCUPATIONAL PSYCHOLOGIST DOCUMENTATION AND CHARTING.
[2019-05-21] MEDS: Enoxaparin 40 MG/0.4 ML Syringe SC (05:47)
[2019-05-21 06:02] LABS: Hematocrit 34.8 % (40-54); Hemoglobin 11.4 g/dL (13.0-16.5); Mean Corp Hgb Conc 32.8 g/dL (32-36); Mean Corpuscular Hgb 30.3 pg (27.0-32.0); Mean Corpuscular Volume 92.6 fL (80-94); Mean Platelet Vol. 9.9 fl (6.2-12.0); Platelet Count 193 K/mm3 (150-450); RBC Distribution Width CV 13.2 % (11.6-14.6); RBC Distribution Width SD 43.8 fl (35.1-43.9); Red Blood Count 3.76 M/mm3 (4.6-6.2); White Blood Count 5.4 K/mm3 (4.4-11.0)
[2019-05-21 06:31] LABS: Anion Gap 6 (5-15); BUN 26 mg/dL (7-18); BUN/Creat Ratio 33.4 RATIO (10-20); Calcium,Total 8.9 mg/dL (8.5-10.1); Chloride 105 mmol/L (98-107); Creatinine, Serum 0.78 mg/dL (0.70-1.30); EST Glomerular Filtration Rate 103 mL/min (>60); Est Glom Filt Rate - Afr Amer 124 mL/min (>60); Estimated Creatinine Clearance 74.74 ml/min; Glucose 106 mg/dL (74-106); Potassium 4.2 mmol/L (3.5-5.1); Sodium Level 139 mmol/L (136-145)
[2019-05-21 06:41] LABS: Bedside Glucose 120 mg/dL (70-110)
[2019-05-21 07:27] VITALS: BP 134/77; PULSE 66; RESP 16; TEMP 36.4; O2SAT 92
[2019-05-21] MEDS: Sertraline 50 MG Tablet PO (07:52)
[2019-05-21] MEDS: Senna/Docusate Sodium 1 Tablet 2 TABLET PO ×2 (07:52→19:44)
[2019-05-21] MEDS: Galantamine Hydrobromide 4 MG Tablet PO ×2 (07:52→17:13)
[2019-05-21] MEDS: Famotidine 20 MG Tablet PO (07:52)
[2019-05-21] MEDS: amLODIPine 10 MG Tablet PO (07:52)
[2019-05-21] MEDS: Lisinopril 10 MG Tablet PO (07:52)
[2019-05-21] MEDS: Multivitamins,Ther W-Minerals Tablet 1 TABLET PO (07:52)
[2019-05-21] MEDS: Vitamin E 400 UNITS Capsule PO (07:52)
[2019-05-21] MEDS: Menthol/Lanolin/Calamine/Znox 113 GM Tube 1 APPLIC TOPICAL ×2 (07:55→19:45)
[2019-05-21] MEDS: oxyCODONE 5 MG Tablet PO (08:29)
--- NOTE | 2019-05-21 10:10 | PN.NEURO_ITS ---
Subjective: No issues overnight. Care discussed with the nursing staff. - Physical Exam Vitals/I&O's: Vital Signs Temp Pulse Resp BP Pulse Ox 97.6 F L 66 16 134/77 H 92 05/21/19 07:27 05/21/19 07:27 05/21/19 07:27 05/21/19 07:27 05/21/19 07:27 Oxygen Delivery Method Room Air Weight: 95 kg Body Mass Index (BMI) 11.5 Finger Stick Blood Glucose 140 Intake and Output for Last 24 Hours 05/19/19 05/20/19 05/21/19 23:59 23:59 23:59 Intake Total 480 / 480 240 / 240 Balance 480 / 480 240 / 240 General: Alert HEENT: Normocephalic Neck: Supple Lungs: Normal air movement Cardiovascular: Normal S1, Normal S2 Abdomen: Bowel Sounds Present Extremities: No cyanosis Neurological: Cranial nerves II-XII grossly intact, Deep Tendon Reflexes 2+/4 and Symmetrical, Neuro grossly intact, Motor Exam 5/5 strength throughout, Muscle tone normal, Sensory exam intact to light touch and pain, Coordination normal Psych/Mental Status: Normal Affect Laboratory Results 05/20/19 17:42: POC Glucose 157 H 05/21/19 05:27: WBC 5.4, RBC 3.76 L, Hgb 11.4 L, Hct 34.8 L, MCV 92.6, MCH 30.3, MCHC 32.8, RDW Std Deviation 43.8, RDW Coeff of Earline 13.2, Plt Count 193, MPV 9.9 05/21/19 05:27: Sodium 139, Potassium 4.2, Chloride 105, Carbon Dioxide 28.0, Anion Gap 6, BUN 26 H, Creatinine 0.78, Estim Creat Clear Calc 74.74, Est GFR (MDRD) Af Amer 124, Est GFR (MDRD) Non-Af 103, BUN/Creatinine Ratio 33.4 H, Glucose 106, Calcium 8.9 05/21/19 06:37: POC Glucose 120 H Current Medications Acetaminophen (Tylenol) 650 mg PO Q4H PRN PRN PRN Reason: Pain Score 1-10/10 Last Admin: 05/20/19 16:02 Dose: 650 mg Documented by: Amlodipine Besylate (Norvasc) 10 mg PO DAILY [facility] Last Admin: 05/21/19 07:52 Dose: 10 mg Documented by: Aspirin (Aspirin, Baby) 81 mg PO QHS [facility] Last Admin: 05/20/19 21:57 Dose: 81 mg Documented by: Bisacodyl (Dulcolax) 10 mg RECTAL .PRN X 1 PRN PRN Reason: Constipation Calamine/Phenol (Calmoseptine Ointment) 1 applic TOPICAL BID [facility]; Protocol Last Admin: 05/21/19 07:55 Dose: 1 applicatio Documented by: Enoxaparin Sodium (Lovenox) 40 mg SC DAILY@0600 [facility] Last Admin: 05/21/19 05:47 Dose: 40 mg Documented by: Famotidine (Pepcid) 20 mg PO DAILY [facility] Last Admin: 05/21/19 07:52 Dose: 20 mg Documented by: Galantamine Hydrobromide (Razadyne) 4 mg PO BIDCM [facility] Last Admin: 05/21/19 07:52 Dose: 4 mg Documented by: Lisinopril (Zestril) 10 mg PO DAILY [facility] Last Admin: 05/21/19 07:52 Dose: 10 mg Documented by: Magnesium Hydroxide (Milk Of Magnesia) 30 ml PO .PRN X 1 PRN PRN Reason: Constipation Metformin HCl (Glucophage) 500 mg PO DAILY@1700 [facility] Multivitamins/Minerals (Multivitamin With Minerals) 1 tablet PO DAILY@0800 [facility] Last Admin: 05/21/19 07:52 Dose: 1 tablet Documented by: Naproxen (Naprosyn) 500 mg PO DAILY PRN PRN Reason: .MIGRAINE SYMPTOMS Nutritional Formula (Lactose Free) (Glucerna Shake) 120 ml PO 4X/DAY [facility] Last Admin: 05/21/19 07:53 Dose: Not Given Documented by: Oxycodone HCl (Oxyir) 5 mg PO Q4H PRN PRN PRN Reason: Pain Score 1-10/10 Last Admin: 05/21/19 08:29 Dose: 5 mg Documented by: Rosuvastatin Calcium (Crestor) 10 mg PO MoFr@2200 [facility] Last Admin: 05/20/19 21:57 Dose: 10 mg Documented by: Senna/Docusate Sodium (Senokot-S, Leslye-Colace) 2 tablet PO BID [facility] Last Admin: 05/21/19 07:52 Dose: 2 tablet Documented by: Sertraline HCl (Zoloft) 50 mg PO DAILY [facility] Last Admin: 05/21/19 07:52 Dose: 50 mg Documented by: Vitamin E (Vitamin E) [facility] Last Admin: 05/21/19 07:52 Dose: 400 units Documented by: STROKE Vital Signs/Narrative: Vital Signs Temp Pulse Resp BP Pulse Ox 05/21/19 07:27 97.6 F L 66 16 134/77 H 92 Medical Necessity - Tobacco Use Smoking Status: Never smoker Tobacco Use: Non-smoker Assessment/Plan All Active Problems (Last Reviewed 02/01/18 @ 06:56 by Royer Maxwell MD) Numbness and tingling of right arm (Acute) Migraine (Acute) Closed right hip fracture (Acute) Debility (Acute) Mental status alteration (Acute) Generalized weakness (Acute) The patient is a 79 year old M 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 Patient was initially admitted to [facility] on 05/11/2019 with right hip pain status post fall was found to have minimally displaced fracture of the right greater trochanter at the junction with the femoral shaft, was managed conservatively per orthopedic recommendation, was seen by Dr. Muñoz who recommended 6 weeks of 50% partial weightbearing and no active abduction. Patient had a previous right hip fracture and hemiarthroplasty [place] [address] Davy Myers. At present patient denies any headache, dizziness, focal motor weakness, sensory loss, visual disturbances, speech disturbances, fever or chest pain. Patient lives with his , does not drive, was recently in physical therapy and used cane to ambulate, denies any frequent falls, lives in an independent house and has 4 steps to get into the house. Plan -PT for gait stability -OT for ADLs -Bowel protocol -Analgesics PRN -Right hip periprosthetic greater trochanteric hip fracture- minimally displaced, seen by Dr. Muñoz orthopedics, will defer further management to orthopedics, per Dr. Muñoz conservative management, 6 weeks of 50% partial weightbearing and no active abduction and follow up in office in 2 weeks -HTN-on lisinopril, amlodipine -HLD-on rosuvastatin -DM-on metformin -Stroke-on aspirin and rosuvastatin -Dementia-on galantamine -Migraines?avoid triptan's due to history of stroke -Started on sertraline by hospitalist -RAYNA on CPAP -GI/DVT prophylaxis- Pepcid/Lovenox, SCDs, KATIE hose -Fall precautions -Further medical management per hospitalist recommendations -Follow up with PCP, orthopedics Dr. Davy Myers/Dr Muñoz on discharge.
[2019-05-21 10:22] VITALS: BMI 11.5
[2019-05-21] MEDS: Acetaminophen 325 MG Tablet 650 MG PO ×2 (11:21→19:47)
[2019-05-21] MEDS: Ondansetron 8 MG Tablet PO (12:10)
[2019-05-21] MEDS: Glucerna Shake 120 ML LIQUID PO ×3 (14:03→19:45)
[2019-05-21] MEDS: metFORMIN HCl 500 MG Tablet PO (17:13)
[2019-05-21 17:55] LABS: Bedside Glucose 139 mg/dL (70-110)
[2019-05-21 19:40] VITALS: PULSE 61; RESP 18; O2SAT 97; BMI 11.5
[2019-05-21] MEDS: Aspirin 81 MG TAB.CHEW PO (19:44)
[2019-05-21 21:56] VITALS: BP 143/71; PULSE 61; RESP 18; TEMP 36.4; O2SAT 97
--- NOTE | 2019-05-22 03:46 | NURSING ---
Reviewed and agree with TUBER OPERATOR documentation and charting.
[2019-05-22] MEDS: Acetaminophen 325 MG Tablet 650 MG PO (05:18)
[2019-05-22] MEDS: Enoxaparin 40 MG/0.4 ML Syringe SC (05:19)
[2019-05-22 06:41] LABS: Bedside Glucose 112 mg/dL (70-110)
--- NOTE | 2019-05-22 08:07 | PN.NEURO_ITS ---
Subjective: No issues overnight. Care discussed with nursing staff. Staffed in team meeting. All questions were answered. Further therapy details per PT/OT/ST notes. - Physical Exam Vitals/I&O's: Vital Signs Temp Pulse Resp BP Pulse Ox 97.6 F L 61 18 143/71 H 97 05/21/19 21:56 05/21/19 21:56 05/21/19 21:56 05/21/19 21:56 05/21/19 21:56 Oxygen Delivery Method Room Air Weight: 95 kg Body Mass Index (BMI) 11.5 Finger Stick Blood Glucose 140 Intake and Output for Last 24 Hours 05/20/19 05/21/19 05/22/19 23:59 23:59 23:59 Intake Total 240 / 240 Balance 240 / 240 General: Alert HEENT: Normocephalic Neck: Supple Lungs: Normal air movement Cardiovascular: Normal S1, Normal S2 Abdomen: Bowel Sounds Present Extremities: No cyanosis Neurological: Cranial nerves II-XII grossly intact, Deep Tendon Reflexes 2+/4 and Symmetrical, Neuro grossly intact, Motor Exam 5/5 strength throughout, Muscle tone normal, Sensory exam intact to light touch and pain, Coordination normal Psych/Mental Status: Normal Affect Laboratory Results 05/21/19 17:49: POC Glucose 139 H 05/22/19 06:33: POC Glucose 112 H Current Medications Acetaminophen (Tylenol) 650 mg PO Q4H PRN PRN PRN Reason: Pain Score 1-10/10 Last Admin: 05/22/19 05:18 Dose: 650 mg Documented by: Amlodipine Besylate (Norvasc) 10 mg PO DAILY [facility] Last Admin: 05/21/19 07:52 Dose: 10 mg Documented by: Aspirin (Aspirin, Baby) 81 mg PO QHS [facility] Last Admin: 05/21/19 19:44 Dose: 81 mg Documented by: Bisacodyl (Dulcolax) 10 mg RECTAL .PRN X 1 PRN PRN Reason: Constipation Calamine/Phenol (Calmoseptine Ointment) 1 applic TOPICAL BID [facility]; Protocol Last Admin: 05/21/19 19:45 Dose: 1 applicatio Documented by: Enoxaparin Sodium (Lovenox) 40 mg SC DAILY@0600 [facility] Last Admin: 05/22/19 05:19 Dose: 40 mg Documented by: Famotidine (Pepcid) 20 mg PO DAILY [facility] Last Admin: 05/21/19 07:52 Dose: 20 mg Documented by: Galantamine Hydrobromide (Razadyne) [facility] Last Admin: 05/21/19 17:13 Dose: 4 mg Documented by: Lisinopril (Zestril) 10 mg PO DAILY [facility] Last Admin: 05/21/19 07:52 Dose: 10 mg Documented by: Magnesium Hydroxide (Milk Of Magnesia) 30 ml PO .PRN X 1 PRN PRN Reason: Constipation Metformin HCl (Glucophage) 500 mg PO DAILY@1700 [facility] Last Admin: 05/21/19 17:13 Dose: 500 mg Documented by: Multivitamins/Minerals (Multivitamin With Minerals) 1 tablet PO DAILY@0800 [facility] Last Admin: 05/21/19 07:52 Dose: 1 tablet Documented by: Naproxen (Naprosyn) 500 mg PO DAILY PRN PRN Reason: .MIGRAINE SYMPTOMS Nutritional Formula (Lactose Free) (Glucerna Shake) 120 ml PO 4X/DAY [facility] Last Admin: 05/21/19 19:45 Dose: 120 ml Documented by: Ondansetron HCl (Zofran) 8 mg PO Q8H PRN PRN PRN Reason: NAUSEA Last Admin: 05/21/19 12:10 Dose: 8 mg Documented by: Oxycodone HCl (Oxyir) 5 mg PO Q4H PRN PRN PRN Reason: Pain Score 1-10/10 Last Admin: 05/21/19 08:29 Dose: 5 mg Documented by: Rosuvastatin Calcium (Crestor) 10 mg PO MoFr@2200 [facility] Last Admin: 05/20/19 21:57 Dose: 10 mg Documented by: Senna/Docusate Sodium (Senokot-S, Leslye-Colace) 2 tablet PO BID [facility] Last Admin: 05/21/19 19:44 Dose: 2 tablet Documented by: Sertraline HCl (Zoloft) 50 mg PO DAILY [facility] Last Admin: 05/21/19 07:52 Dose: 50 mg Documented by: Vitamin E (Vitamin E) [facility] Last Admin: 05/21/19 07:52 Dose: 400 units Documented by: Medical Necessity - Tobacco Use Smoking Status: Never smoker Tobacco Use: Non-smoker Assessment/Plan All Active Problems (Last Reviewed 02/01/18 @ 06:56 by Royer Maxwell MD) Numbness and tingling of right arm (Acute) Migraine (Acute) Closed right hip fracture (Acute) Debility (Acute) Mental status alteration (Acute) Generalized weakness (Acute) The patient is a 79 year old M [facility] HTN, HLD, DM, 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 Patient was initially admitted to [facility] on 05/11/2019 with right hip pain status post fall was found to have minimally displaced fracture of the right greater trochanter at the junction with the femoral shaft, was managed conservatively per orthopedic recommendation, was seen by Dr. Muñoz who recommended 6 weeks of 50% partial weightbearing and no active abduction. Patient had a previous right hip fracture and hemiar throplasty in [address] Davy Myers. At present patient denies any headache, dizziness, focal motor weakness, sensory loss, visual disturbances, speech disturbances, fever or chest pain. Patient lives with his , does not drive, was recently in physical therapy and used cane to ambulate, denies any frequent falls, lives in an independent house and has 4 steps to get into the house. Plan -PT for gait stability -OT for ADLs -Bowel protocol -Analgesics PRN -Right hip periprosthetic greater trochanteric hip fracture- minimally displaced, seen by Dr. Muñoz orthopedics, will defer further management to orthopedics, per Dr. Muñoz conservative management, 6 weeks of 50% partial weightbearing and no active abduction and follow up in office in 2 weeks -HTN-on lisinopril, amlodipine -HLD-on rosuvastatin -DM-on metformin -Stroke-on aspirin and rosuvastatin -Dementia-on galantamine -Migraines?avoid triptan's due to history of stroke -Started on sertraline by hospitalist -RAYNA on CPAP -GI/DVT prophylaxis- Pepcid/Lovenox, SCDs, KATIE hose -Fall precautions -Further medical management per hospitalist recommendations -Follow up with PCP, orthopedics Dr. Davy Myers/Dr Muñoz on discharge.
[2019-05-22] MEDS: Galantamine Hydrobromide 4 MG Tablet PO ×2 (08:09→17:00)
[2019-05-22] MEDS: Lisinopril 10 MG Tablet PO (08:09)
[2019-05-22] MEDS: Famotidine 20 MG Tablet PO (08:09)
[2019-05-22] MEDS: Sertraline 50 MG Tablet PO (08:09)
[2019-05-22] MEDS: Vitamin E 400 UNITS Capsule PO (08:09)
[2019-05-22] MEDS: Senna/Docusate Sodium 1 Tablet 2 TABLET PO ×2 (08:09→20:34)
[2019-05-22] MEDS: Multivitamins,Ther W-Minerals Tablet 1 TABLET PO (08:09)
[2019-05-22] MEDS: amLODIPine 10 MG Tablet PO (08:09)
[2019-05-22] MEDS: Glucerna Shake 120 ML LIQUID PO ×3 (08:09→20:33)
[2019-05-22] MEDS: Menthol/Lanolin/Calamine/Znox 113 GM Tube 1 APPLIC TOPICAL ×2 (08:17→20:33)
[2019-05-22 10:00] VITALS: BP 120/71; PULSE 63; RESP 18; TEMP 36.6; O2SAT 94
[2019-05-22] MEDS: oxyCODONE 5 MG Tablet PO ×2 (11:14→21:38)
--- NOTE | 2019-05-22 12:53 | CASEMGMT ---
Social Work IDT met with patient, and son for Team Meeting. Discussed patient's progress in therapy. Pt is max x1-2 for sit to stand and stand pivot transfers with cues, set up for UE ADLs, total x2 for toileting and LE ADLs. Pt is learning to use adaptive equipment with cues. Once pt is on his feet he can walk at min assist with FWW. Explained Medicare ELOS 17 days with DC 05/31. Provided SNF list to in case pt is not ready to DC home. Will ReTeam next week. Will continue to follow. NATALIE Clemente HYDROELECTRIC PLANT OPERATOR
[2019-05-22] MEDS: Ondansetron 8 MG Tablet PO (13:00)
[2019-05-22] MEDS: Acetaminophen 500 MG Tablet 1000 MG PO ×2 (13:26→20:34)
[2019-05-22 15:28] VITALS: BMI 11.5
[2019-05-22] MEDS: metFORMIN HCl 500 MG Tablet PO (16:59)
[2019-05-22 18:55] LABS: Bedside Glucose 151 mg/dL (70-110)
[2019-05-22 19:23] VITALS: BP 133/65; PULSE 66; RESP 18; TEMP 36.8; O2SAT 96
[2019-05-22] MEDS: Aspirin 81 MG TAB.CHEW PO (20:33)
[2019-05-22 21:44] VITALS: BMI 11.5
--- NOTE | 2019-05-23 01:12 | NURSING ---
REVIEWED AND AGREE WITH PUMPING STATION ENGINEER'S FUNCTIONAL ASSESSMENT AND HANDOFF CHARTING.
[2019-05-23] MEDS: Acetaminophen 500 MG Tablet 1000 MG PO ×3 (05:38→19:51)
[2019-05-23] MEDS: Enoxaparin 40 MG/0.4 ML Syringe SC (05:38)
[2019-05-23 06:51] LABS: Bedside Glucose 111 mg/dL (70-110)
[2019-05-23 07:00] VITALS: BP 134/76; PULSE 60; RESP 18; TEMP 36.7; O2SAT 98
[2019-05-23] MEDS: Glucerna Shake 120 ML LIQUID PO ×2 (07:50→19:53)
[2019-05-23] MEDS: Senna/Docusate Sodium 1 Tablet 2 TABLET PO ×2 (07:50→19:53)
[2019-05-23] MEDS: Sertraline 50 MG Tablet PO (07:51)
[2019-05-23] MEDS: Vitamin E 400 UNITS Capsule PO (07:51)
[2019-05-23] MEDS: Multivitamins,Ther W-Minerals Tablet 1 TABLET PO (07:51)
[2019-05-23] MEDS: Lisinopril 10 MG Tablet PO (07:51)
[2019-05-23] MEDS: Famotidine 20 MG Tablet PO (07:51)
[2019-05-23] MEDS: amLODIPine 10 MG Tablet PO (07:51)
[2019-05-23] MEDS: Galantamine Hydrobromide 4 MG Tablet PO ×2 (07:51→16:58)
[2019-05-23] MEDS: Menthol/Lanolin/Calamine/Znox 113 GM Tube 1 APPLIC TOPICAL ×2 (07:57→19:54)
[2019-05-23 14:44] VITALS: BMI 11.5
[2019-05-23] MEDS: metFORMIN HCl 500 MG Tablet PO (16:57)
[2019-05-23] MEDS: oxyCODONE 5 MG Tablet PO (16:57)
[2019-05-23 18:46] LABS: Bedside Glucose 171 mg/dL (70-110)
--- NOTE | 2019-05-23 18:47 | PCM.PROGNOTE ---
Subjective: Afebrile, vital signs stable 94 to 98% saturated on room air Good oral intake Denies lightheadedness, shortness of breath, nausea, abdominal pain, constipation or diarrhea. The blood sugar record was reviewed. He no longer has low blood sugars in the a.m since the a.m. Glucophage was discontinued He is tolerating sertraline 50 mg daily without any adverse side effects. Has not had any migraines since admission to the [place] the hip pain has improved and is well controlled since the Tylenol has been scheduled every 8 hours. doing better with PT. I reviewed the PT and OT notes. - Physical Exam Vitals/I&O's: Vital Signs Temp Pulse Resp BP Pulse Ox 98.0 F 60 18 134/76 H 98 05/23/19 07:00 05/23/19 07:00 05/23/19 07:00 05/23/19 07:00 05/23/19 07:00 Oxygen Delivery Method Room Air Weight: 216 lb 14.958 oz Body Mass Index (BMI) 11.5 Finger Stick Blood Glucose 140 Intake and Output for Last 24 Hours 05/21/19 05/22/19 05/23/19 23:59 23:59 23:59 Intake Total 240 / 240 Balance 240 / 240 General: Alert, Cooperative, No apparent distress Neck: Supple, No JVD Lungs: Normal air movement, Rales - he has some coarse crackles in the right base posteriorly that did not clear after a few deep breaths. He denies cough, - - No conversational dyspnea. Not tachypneic, no accessory muscle use. Cardiovascular: Regular rate, Regular Rhythm, Normal S1, Normal S2, Murmur - Unchanged Abdomen: Bowel Sounds Present, Soft, Non Tender, Non-Distended Extremities: No clubbing, No cyanosis, No edema Skin: No rashes Neurological: Cranial nerves II-XII grossly intact, Neuro grossly intact Laboratory Results 05/22/19 18:47: POC Glucose 151 H 05/23/19 06:29: POC Glucose 111 H 05/23/19 18:17: POC Glucose 171 H Current Medications Acetaminophen (Tylenol) 1,000 mg PO Q8 [facility] Last Admin: 05/23/19 12:24 Dose: 1,000 mg Documented by: Amlodipine Besylate (Norvasc) 10 mg PO DAILY [facility] Last Admin: 05/23/19 07:51 Dose: 10 mg Documented by: Aspirin (Aspirin, Baby) 81 mg PO QHS [facility] Last Admin: 05/22/19 20:33 Dose: 81 mg Documented by: Bisacodyl (Dulcolax) 10 mg RECTAL .PRN X 1 PRN PRN Reason: Constipation Calamine/Phenol (Calmoseptine Ointment) 1 applic TOPICAL BID [facility]; Protocol Last Admin: 05/23/19 07:57 Dose: 1 applicatio Documented by: Enoxaparin Sodium (Lovenox) 40 mg SC DAILY@0600 [facility] Last Admin: 05/23/19 05:38 Dose: 40 mg Documented by: Famotidine (Pepcid) 20 mg PO DAILY [facility] Last Admin: 05/23/19 07:51 Dose: 20 mg Documented by: Galantamine Hydrobromide (Razadyne) 4 mg PO BIDCM [facility] Last Admin: 05/23/19 16:58 Dose: 4 mg Documented by: Lisinopril (Zestril) 10 mg PO DAILY [facility] Last Admin: 05/23/19 07:51 Dose: 10 mg Documented by: Magnesium Hydroxide (Milk Of Magnesia) 30 ml PO .PRN X 1 PRN PRN Reason: Constipation Metformin HCl (Glucophage) 500 mg PO DAILY@1700 [facility] Last Admin: 05/23/19 16:57 Dose: 500 mg Documented by: Multivitamins/Minerals (Multivitamin With Minerals) 1 tablet PO DAILY@0800 [facility] Last Admin: 05/23/19 07:51 Dose: 1 tablet Documented by: Naproxen (Naprosyn) 500 mg PO DAILY PRN PRN Reason: .MIGRAINE SYMPTOMS Nutritional Formula (Lactose Free) (Glucerna Shake) 120 ml PO 4X/DAY [facility] Last Admin: 05/23/19 17:00 Dose: Not Given Documented by: Ondansetron HCl (Zofran) 8 mg PO Q8H PRN PRN PRN Reason: NAUSEA Last Admin: 05/22/19 13:00 Dose: 8 mg Documented by: Oxycodone HCl (Oxyir) 5 mg PO Q4H PRN PRN PRN Reason: Pain Score 1-10/10 Last Admin: 05/23/19 16:57 Dose: 5 mg Documented by: Rosuvastatin Calcium (Crestor) 10 mg PO MoFr@2200 [facility] Last Admin: 05/20/19 21:57 Dose: 10 mg Documented by: Senna/Docusate Sodium (Senokot-S, Leslye-Colace) 2 tablet PO BID [facility] Last Admin: 05/23/19 07:50 Dose: 2 tablet Documented by: Sertraline HCl (Zoloft) 50 mg PO DAILY [facility] Last Admin: 05/23/19 07:51 Dose: 50 mg Documented by: [facility]) [facility] Last Admin: 05/23/19 07:51 Dose: 400 units Documented by: Medical Necessity - Tobacco Use Smoking Status: Never smoker Tobacco Use: Non-smoker Assessment/Plan All Active Problems (Last Reviewed 02/01/18 @ 06:56 by Royer Maxwell MD) Numbness and tingling of right arm (Acute) Migraine (Acute) Closed right hip fracture (Acute) Debility (Acute) Mental status alteration (Acute) Generalized weakness (Acute) Impressions 1. Minimally displaced right trochanteric periprosthetic hip fracture resulting in debility - he has weakness on the left side due to prior stroke 2. vascular dementia 3. History of cancer of the tongue 4. Obstructive sleep apnea - wears his CPAP at night 5. Hyperlipidemia 6. Previous CVA with left hemiparesis 7. Cervical canal stenosis 8. Urinary incontinence - no high residuals. Can not get there in time, knows when he as to go 9. Hypertension - controlled 10. N/N anemia - possibly due to blood loss with the fracture. 11. History of migraines on PRN Maxalt 12. Diabetes mellitus type 2 - very well controlled. At his age and with his co-morbidities there is no need to tightly control the BS's. A HGBA1C of 7.5 - 8 would be satisfactory 13. suspected depression - tolerating Sertraline and his mood seems better. Plan Continue PT for gait stability Continue OT for ADLs Bowel protocol Continue Tylenol 1 g p.o. every 8 hours -has been effective in controlling the right hip pain 50% partial weightbearing on the right lower extremity for 6 weeks from the date of his fall Fall precautions DVT prophylaxis with KATIE hose and Lovenox - may consider transitioning to Eliquis 2.5 mg BID at [place] continue to monitor for any signs of PNA - I am concerned about the new coarse crackles in the left base......If he has a fever will check a PA and LAT CXR and start antibiotic. Encouraged him to continue with IS every hour Code Visit Inpatient E&M: 41602 Subs Hosp L2
[2019-05-23 19:45] VITALS: BP 115/59; PULSE 62; RESP 16; TEMP 36.3; O2SAT 96
[2019-05-23] MEDS: Aspirin 81 MG TAB.CHEW PO (19:53)
[2019-05-23 23:13] VITALS: BMI 11.5
[2019-05-24] MEDS: Acetaminophen 500 MG Tablet 1000 MG PO ×3 (06:09→22:00)
[2019-05-24 06:10] LABS: Bedside Glucose 113 mg/dL (70-110)
[2019-05-24] MEDS: Enoxaparin 40 MG/0.4 ML Syringe SC (06:12)
[2019-05-24 07:32] VITALS: BP 124/65; PULSE 58; RESP 16; TEMP 36.7; O2SAT 96
[2019-05-24] MEDS: Glucerna Shake 120 ML LIQUID PO ×4 (07:51→22:23)
[2019-05-24] MEDS: Famotidine 20 MG Tablet PO (07:51)
[2019-05-24] MEDS: Senna/Docusate Sodium 1 Tablet 2 TABLET PO ×2 (07:51→22:00)
[2019-05-24] MEDS: Vitamin E 400 UNITS Capsule PO (07:51)
[2019-05-24] MEDS: Multivitamins,Ther W-Minerals Tablet 1 TABLET PO (07:51)
[2019-05-24] MEDS: Galantamine Hydrobromide 4 MG Tablet PO ×2 (07:52→16:42)
[2019-05-24] MEDS: amLODIPine 10 MG Tablet PO (07:52)
[2019-05-24] MEDS: Lisinopril 10 MG Tablet PO (07:52)
[2019-05-24] MEDS: Sertraline 50 MG Tablet PO (07:52)
[2019-05-24] MEDS: Menthol/Lanolin/Calamine/Znox 113 GM Tube 1 APPLIC TOPICAL ×2 (07:58→22:03)
[2019-05-24 09:20] VITALS: BMI 11.5
--- NOTE | 2019-05-24 10:05 | PN.NEURO_ITS ---
Subjective: No issues overnight. Care discussed with the nursing staff. - Physical Exam Vitals/I&O's: Vital Signs Temp Pulse Resp BP Pulse Ox 98.0 F 58 L 16 124/65 H 96 05/24/19 07:32 05/24/19 07:32 05/24/19 07:32 05/24/19 07:32 05/24/19 07:32 Oxygen Delivery Method Room Air Weight: 98.4 kg Body Mass Index (BMI) 11.5 Finger Stick Blood Glucose 140 Intake and Output for Last 24 Hours 05/22/19 05/23/19 05/24/19 23:59 23:59 23:59 Intake Total 240 / 240 480 / 480 Balance 240 / 240 480 / 480 General: Alert HEENT: Normocephalic Neck: Supple Lungs: Normal air movement Cardiovascular: Normal S1, Normal S2 Abdomen: Bowel Sounds Present Extremities: No cyanosis Neurological: Cranial nerves II-XII grossly intact, Deep Tendon Reflexes 2+/4 and Symmetrical, Neuro grossly intact, Motor Exam 5/5 strength throughout, Muscle tone normal, Sensory exam intact to light touch and pain, Coordination normal Laboratory Results 05/23/19 18:17: POC Glucose 171 H 05/24/19 06:05: POC Glucose 113 H Current Medications Acetaminophen (Tylenol) 1,000 mg PO Q8 [facility] Last Admin: 05/24/19 06:09 Dose: 1,000 mg Documented by: Amlodipine Besylate (Norvasc) 10 mg PO DAILY [facility] Last Admin: 05/24/19 07:52 Dose: 10 mg Documented by: Aspirin (Aspirin, Baby) 81 mg PO QHS [facility] Last Admin: 05/23/19 19:53 Dose: 81 mg Documented by: Bisacodyl (Dulcolax) 10 mg RECTAL .PRN X 1 PRN PRN Reason: Constipation Calamine/Phenol (Calmoseptine Ointment) 1 applic TOPICAL BID [facility]; Protocol Last Admin: 05/24/19 07:58 Dose: 1 applicatio Documented by: Enoxaparin Sodium (Lovenox) 40 mg SC DAILY@0600 [facility] Last Admin: 05/24/19 06:12 Dose: 40 mg Documented by: Famotidine (Pepcid) 20 mg PO DAILY [facility] Last Admin: 05/24/19 07:51 Dose: 20 mg Documented by: Galantamine Hydrobromide ([facility]) [address] [facility] Last Admin: 05/24/19 07:52 Dose: 4 mg Documented by: Lisinopril (Zestril) 10 mg PO DAILY [facility] Last Admin: 05/24/19 07:52 Dose: 10 mg Documented by: Magnesium Hydroxide (Milk Of Magnesia) 30 ml PO .PRN X 1 PRN PRN Reason: Constipation Metformin HCl (Glucophage) 500 mg PO DAILY@1700 [facility] Last Admin: 05/23/19 16:57 Dose: 500 mg Documented by: Multivitamins/Minerals (Multivitamin With Minerals) 1 tablet PO DAILY@0800 [facility] Last Admin: 05/24/19 07:51 Dose: 1 tablet Documented by: Naproxen (Naprosyn) 500 mg PO DAILY PRN PRN Reason: .MIGRAINE SYMPTOMS Nutritional Formula (Lactose Free) (Glucerna Shake) 120 ml PO 4X/DAY [facility] Last Admin: 05/24/19 07:51 Dose: 120 ml Documented by: Ondansetron HCl (Zofran) 8 mg PO Q8H PRN PRN PRN Reason: NAUSEA Last Admin: 05/22/19 13:00 Dose: 8 mg Documented by: Oxycodone HCl (Oxyir) 5 mg PO Q4H PRN PRN PRN Reason: Pain Score 1-10/10 Last Admin: 05/23/19 16:57 Dose: 5 mg Documented by: Rosuvastatin Calcium (Crestor) 10 mg PO MoFr@2200 [facility] Last Admin: 05/20/19 21:57 Dose: 10 mg Documented by: Senna/Docusate Sodium (Senokot-S, Leslye-Colace) 2 tablet PO BID [facility] Last Admin: 05/24/19 07:51 Dose: 2 tablet Documented by: Sertraline HCl (Zoloft) 50 mg PO DAILY [facility] Last Admin: 05/24/19 07:52 Dose: 50 mg Documented by: Vitamin E (Vitamin E) [address] [facility] Last Admin: 05/24/19 07:51 Dose: 400 units Documented by: STROKE Vital Signs/Narrative: Vital Signs Temp Pulse Resp BP Pulse Ox 05/24/19 07:32 98.0 F 58 L 16 124/65 H 96 Medical Necessity - Tobacco Use Smoking Status: Never smoker Tobacco Use: Non-smoker Assessment/Plan All Active Problems (Last Reviewed 02/01/18 @ 06:56 by Royer Maxwell MD) Numbness and tingling of right arm (Acute) Migraine (Acute) Closed right hip fracture (Acute) Debility (Acute) Mental status alteration (Acute) Generalized weakness (Acute) The patient is a 79 year old M [facility] HTN, HLD, DM, 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 Patient was initially admitted to [facility] on 05/11/2019 with right hip pain status post fall was found to have minimally displaced fracture of the right greater trochanter at the junction with the femoral shaft, was managed conservatively per orthopedic recommendation, was seen by Dr. Muñoz who recommended 6 weeks of 50% partial weightbearing and no active abduction. Patient had a previous right hip fracture and ga arthroplasty in [address] Davy Myers. At present patient denies any headache, dizziness, focal motor weakness, sensory loss, visual disturbances, speech disturbances, fever or chest pain. Patient lives with his , does not drive, was recently in physical therapy and used cane to ambulate, denies any frequent falls, lives in an independent house and has 4 steps to get into the house. Plan -PT for gait stability -OT for ADLs -Bowel protocol -Analgesics PRN -Right hip periprosthetic greater trochanteric hip fracture- minimally displaced, seen by Dr. Muñoz orthopedics, will defer further management to orthopedics, per Dr. Muñoz conservative management, 6 weeks of 50% partial weightbearing and no active abduction and follow up in office in 2 weeks -HTN-on lisinopril, amlodipine -HLD-on rosuvastatin -DM-on metformin -Stroke-on aspirin and rosuvastatin -Dementia-on galantamine -Migraines?avoid triptan's due to history of stroke -Started on sertraline by hospitalist -RAYNA on CPAP -GI/DVT prophylaxis- Pepcid/Lovenox, SCDs, KATIE hose -Fall precautions -Further medical management per hospitalist recommendations -Follow up with PCP, orthopedics Dr. Davy Myers/Dr Muñoz on discharge.
--- NOTE | 2019-05-24 13:22 | CASEMGMT ---
Addendum entered by Alissa Pacheco 05/27/19 14:11: Patient was approved at TCU. Will DC to TCU 05/31 with goals to return home with . Original Note: Social Work Spoke with pt about DC plans - pt requesting referral to TCU and second choice is [facility]. Referral made to TCU will await outcome. Left message with with the above information. Alissa Pacheco, NATALIE LESTERW
[2019-05-24] MEDS: metFORMIN HCl 500 MG Tablet PO (16:42)
[2019-05-24 16:51] LABS: Bedside Glucose 94 mg/dL (70-110)
[2019-05-24 19:00] VITALS: BP 139/72; PULSE 64; RESP 16; TEMP 36.7; O2SAT 95
[2019-05-24 22:00] VITALS: BMI 11.5
[2019-05-24] MEDS: Aspirin 81 MG TAB.CHEW PO (22:00)
[2019-05-25] MEDS: Acetaminophen 500 MG Tablet 1000 MG PO ×3 (05:15→21:00)
[2019-05-25] MEDS: Enoxaparin 40 MG/0.4 ML Syringe SC (05:20)
[2019-05-25 06:26] LABS: Bedside Glucose 113 mg/dL (70-110)
[2019-05-25 07:00] VITALS: BP 150/76; PULSE 68; RESP 18; TEMP 36.7; O2SAT 95
[2019-05-25] MEDS: Glucerna Shake 120 ML LIQUID PO ×2 (07:29→20:59)
[2019-05-25] MEDS: Galantamine Hydrobromide 4 MG Tablet PO ×2 (07:29→16:52)
[2019-05-25] MEDS: Senna/Docusate Sodium 1 Tablet 2 TABLET PO ×2 (07:29→20:59)
[2019-05-25] MEDS: amLODIPine 10 MG Tablet PO (07:29)
[2019-05-25] MEDS: Famotidine 20 MG Tablet PO (07:29)
[2019-05-25] MEDS: Sertraline 50 MG Tablet PO (07:30)
[2019-05-25] MEDS: Vitamin E 400 UNITS Capsule PO (07:30)
[2019-05-25] MEDS: Lisinopril 10 MG Tablet PO (07:30)
[2019-05-25] MEDS: Multivitamins,Ther W-Minerals Tablet 1 TABLET PO (07:30)
[2019-05-25] MEDS: Menthol/Lanolin/Calamine/Znox 113 GM Tube 1 APPLIC TOPICAL ×2 (07:32→20:59)
[2019-05-25] MEDS: oxyCODONE 5 MG Tablet PO ×2 (08:49→21:00)
[2019-05-25 14:30] VITALS: BMI 11.5
[2019-05-25] MEDS: metFORMIN HCl 500 MG Tablet PO (16:52)
[2019-05-25 17:01] LABS: Bedside Glucose 124 mg/dL (70-110)
[2019-05-25 19:52] VITALS: BP 147/67; PULSE 66; RESP 18; TEMP 36.8; O2SAT 97
[2019-05-25] MEDS: Aspirin 81 MG TAB.CHEW PO (20:59)
[2019-05-25 22:27] VITALS: BMI 11.5
--- NOTE | 2019-05-26 01:45 | NURSING ---
REVIEWED AND AGREE WITH [employer]'S FUNCTIONAL ASSESSMENT AND HANDOFF CHARTING.
[2019-05-26] MEDS: Enoxaparin 40 MG/0.4 ML Syringe SC (04:53)
[2019-05-26] MEDS: Acetaminophen 500 MG Tablet 1000 MG PO ×3 (04:53→20:45)
[2019-05-26 07:00] VITALS: BP 143/71; PULSE 66; RESP 18; TEMP 36.7; O2SAT 94
[2019-05-26 07:01] LABS: Bedside Glucose 107 mg/dL (70-110)
[2019-05-26] MEDS: Menthol/Lanolin/Calamine/Znox 113 GM Tube 1 APPLIC TOPICAL ×2 (07:54→20:46)
[2019-05-26] MEDS: Multivitamins,Ther W-Minerals Tablet 1 TABLET PO (07:54)
[2019-05-26] MEDS: Galantamine Hydrobromide 4 MG Tablet PO ×2 (07:55→16:59)
[2019-05-26] MEDS: Famotidine 20 MG Tablet PO (07:55)
[2019-05-26] MEDS: Sertraline 50 MG Tablet PO (07:55)
[2019-05-26] MEDS: amLODIPine 10 MG Tablet PO (07:55)
[2019-05-26] MEDS: Lisinopril 10 MG Tablet PO (07:55)
[2019-05-26] MEDS: Vitamin E 400 UNITS Capsule PO (07:55)
[2019-05-26] MEDS: Senna/Docusate Sodium 1 Tablet 2 TABLET PO ×2 (07:55→20:46)
[2019-05-26] MEDS: Glucerna Shake 120 ML LIQUID PO ×2 (07:56→20:47)
[2019-05-26 09:52] VITALS: BMI 11.5
--- NOTE | 2019-05-26 11:35 | PCM.PN.HOSP ---
Reason for Visit: Right hip fracture. Admitted in rehab service Subjective: Complain of mild pain at right hip, periprosthetic fracture. Still has mild weakness in right hip. Left lower extremity weakness secondary to prior stroke. Patient has moved bowel. Vitals/I&O's: Vital Signs Temp Pulse Resp BP Pulse Ox 98.0 F 66 18 143/71 H 94 05/26/19 07:00 05/26/19 07:00 05/26/19 07:00 05/26/19 07:00 05/26/19 07:00 Oxygen Delivery Method Room Air Weight: 216 lb 14.958 oz Body Mass Index (BMI) 11.5 Finger Stick Blood Glucose 140 Intake and Output for Last 24 Hours 05/24/19 05/25/19 05/26/19 23:59 23:59 23:59 Intake Total 1560 / 1560 240 / 240 Balance 1560 / 1560 240 / 240 General: Alert, Oriented x3, Cooperative HEENT: Atraumatic, PERRLA, EOMI, Normocephalic Neck: Supple, No JVD, Negative Carotid Bruits Lungs: Clear to auscultation, Normal air movement, No rhonchi, No wheeze, No rales Cardiovascular: Regular rate, Regular Rhythm, Normal S1, Normal S2, Murmur - Ejection systolic murmur present over aortic region; aortic stenosis. Abdomen: Bowel Sounds Present, Soft, Non Tender, Non-Distended Extremities: No edema, Capillary Refill Less than 3 Seconds Skin: No rashes, No breakdown Musculoskeletal: No Tenderness to Palpation of Joints or Extremities, Arthritic Changes Neurological: Cranial nerves II-XII grossly intact, Deep Tendon Reflexes 2+/4 and Symmetrical, Neuro grossly intact, - - Muscle strength, 4/5 right hip and knee and left 4+/5 at hip and knee joints Psych/Mental Status: Normal Affect, Appropriate Laboratory Results 05/25/19 16:55: POC Glucose 124 H 05/26/19 06:51: POC Glucose 107 Current Medications Acetaminophen (Tylenol) 1,000 mg PO Q8 [facility] Last Admin: 05/26/19 04:53 Dose: 1,000 mg Documented by: Amlodipine Besylate (Norvasc) 10 mg PO DAILY [facility] Last Admin: 05/26/19 07:55 Dose: 10 mg Documented by: Aspirin (Aspirin, Baby) 81 mg PO QHS [facility] Last Admin: 05/25/19 20:59 Dose: 81 mg Documented by: Bisacodyl (Dulcolax) 10 mg RECTAL .PRN X 1 PRN PRN Reason: Constipation Calamine/Phenol (Calmoseptine Ointment) 1 applic TOPICAL BID [facility]; Protocol Last Admin: 05/26/19 07:54 Dose: 1 applicatio Documented by: Enoxaparin Sodium (Lovenox) 40 mg SC DAILY@0600 [facility] Last Admin: 05/26/19 04:53 Dose: 40 mg Documented by: Famotidine (Pepcid) 20 mg PO DAILY [facility] Last Admin: 05/26/19 07:55 Dose: 20 mg Documented by: Galantamine [facility]brom[facility] ([facility]ne) [facility] Last Admin: 05/26/19 07:55 Dose: 4 mg Documented by: Lisinopril (Zestril) 10 mg PO DAILY [facility] Last Admin: 05/26/19 07:55 Dose: 10 mg Documented by: Magnesium Hydroxide (Milk Of Magnesia) 30 ml PO .PRN X 1 PRN PRN Reason: Constipation Metformin HCl (Glucophage) 500 mg PO DAILY@1700 [facility] Last Admin: 05/25/19 16:52 Dose: 500 mg Documented by: Multivitamins/Minerals (Multivitamin With Minerals) 1 tablet PO DAILY@0800 [facility] Last Admin: 05/26/19 07:54 Dose: 1 tablet Documented by: Naproxen (Naprosyn) 500 mg PO DAILY PRN PRN Reason: .MIGRAINE SYMPTOMS Nutritional Formula (Lactose Free) (Glucerna Shake) 120 ml PO 4X/DAY [facility] Last Admin: 05/26/19 07:56 Dose: 120 ml Documented by: Ondansetron HCl (Zofran) 8 mg PO Q8H PRN PRN PRN Reason: NAUSEA Last Admin: 05/22/19 13:00 Dose: 8 mg Documented by: Oxycodone HCl (Oxyir) 5 mg PO Q4H PRN PRN PRN Reason: Pain Score 1-10/10 Last Admin: 05/25/19 21:00 Dose: 5 mg Documented by: Rosuvastatin Calcium (Crestor) 10 mg PO MoFr@2200 [facility] Last Admin: 05/24/19 22:00 Dose: 10 mg Documented by: Senna/Docusate Sodium (Senokot-S, Leslye-Colace) 2 tablet PO BID [facility] Last Admin: 05/26/19 07:55 Dose: 2 tablet Documented by: Sertraline HCl (Zoloft) 50 mg PO DAILY [facility] Last Admin: 05/26/19 07:55 Dose: 50 mg Documented by: Vitamin E (Vitamin E) 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 Patient was seen by Dr. Muñoz and is on conservative management; 6 weeks of 50% partial weightbearing and no active abduction. Patient had right hip hemiarthroplasty [place] [address] Davy Myers. 1. Minimally displaced right trochanteric periprosthetic hip fracture resulting in debility. The patient has mild residual weakness of previous stroke on left side. PT OT. Discussed with the . She is more concerned of balance on a stepping backward or side. Fall precaution. 2. vascular dementia: On galantamine. Stable. 3. History of cancer of the tongue status post resection and lymph node resection. 4. Obstructive sleep apnea - wears his CPAP at night 5. Hyperlipidemia 6. Previous CVA with left hemiparesis 7. Cervical canal stenosis 8. Urinary incontinence: PVR every 3 hour. 9. Hypertension - controlled: Blood pressure lies between 126/71 to 150/76 acceptable range. Lisinopril 10 mg daily and amlodipine 10 mg daily. 10. Normocytic normochromic anemia - possibly due to blood loss with the fracture. Hemoglobin and hematocrit 11.4/34.8. 11. History of migraines on PRN Maxalt 12. Diabetes mellitus type 2 -glucose is 107, 124 mg percent. Septuple range of HGBA1C of 7.5 - 8. 13. suspected depression - tolerating Sertraline and his mood seems better. DVT prophylaxis with KATIE hose and Lovenox - may consider transitioning to Eliquis 2.5 mg BID at [place] Laboratory Results 05/25/19 16:55: POC Glucose 124 H 05/26/19 06:51: POC Glucose 107 Active Medications Acetaminophen (Tylenol) 1,000 mg PO Q8 [facility] Last Admin: 05/26/19 04:53 Dose: 1,000 mg Documented by: Amlodipine Besylate (Norvasc) 10 mg PO DAILY [facility] Last Admin: 05/26/19 07:55 Dose: 10 mg Documented by: Aspirin (Aspirin, Baby) 81 mg PO QHS [facility] Last Admin: 05/25/19 20:59 Dose: 81 mg Documented by: Bisacodyl (Dulcolax) 10 mg RECTAL .PRN X 1 PRN PRN Reason: Constipation Calamine/Phenol (Calmoseptine Ointment) 1 applic TOPICAL BID [facility]; Protocol Last Admin: 05/26/19 07:54 Dose: 1 applicatio Documented by: Enoxaparin Sodium (Lovenox) 40 mg SC DAILY@0600 [facility] Last Admin: 05/26/19 04:53 Dose: 40 mg Documented by: Famotidine (Pepcid) 20 mg PO DAILY [facility] Last Admin: 05/26/19 07:55 Dose: 20 mg Documented by: Galantamine Hydrobromide (Razadyne) 4 mg PO BIDCM [facility] Last Admin: 05/26/19 07:55 Dose: 4 mg Documented by: Lisinopril (Zestril) 10 mg PO DAILY [facility] Last Admin: 05/26/19 07:55 Dose: 10 mg Documented by: Magnesium Hydroxide (Milk Of Magnesia) 30 ml PO .PRN X 1 PRN PRN Reason: Constipation Metformin HCl (Glucophage) 500 mg PO DAILY@1700 [facility] Last Admin: 05/25/19 16:52 Dose: 500 mg Documented by: Multivitamins/Minerals (Multivitamin With Minerals) 1 tablet PO DAILY@0800 [facility] Last Admin: 05/26/19 07:54 Dose: 1 tablet Documented by: Naproxen (Naprosyn) 500 mg PO DAILY PRN PRN Reason: .MIGRAINE SYMPTOMS Nutritional Formula (Lactose Free) (Glucerna [place]) 120 ml PO 4X/DAY [facility] Last Admin: 05/26/19 07:56 Dose: 120 ml Documented by: Ondansetron HCl (Zofran) 8 mg PO Q8H PRN PRN PRN Reason: NAUSEA Last Admin: 05/22/19 13:00 Dose: 8 mg Documented by: Oxycodone HCl (Oxyir) 5 mg PO Q4H PRN PRN PRN Reason: Pain Score 1-10/10 Last Admin: 05/25/19 21:00 Dose: 5 mg Documented by: Rosuvastatin Calcium (Crestor) 10 mg PO MoFr@2200 [facility] Last Admin: 05/24/19 22:00 Dose: 10 mg Documented by: Senna/Docusate Sodium (Senokot-S, Leslye-Colace) 2 tablet PO BID [facility] Last Admin: 05/26/19 07:55 Dose: 2 tablet Documented by: Sertraline HCl (Zoloft) 50 mg PO DAILY [facility] Last Admin: 05/26/19 07:55 Dose: 50 mg Documented by: Vitamin E (Vitamin E) [facility] Last Admin: 05/26/19 07:55 Dose: 400 units Documented by: Code Visit Inpatient E&M: 25083 Subs Hosp L2
[2019-05-26] MEDS: oxyCODONE 5 MG Tablet PO (15:08)
[2019-05-26] MEDS: metFORMIN HCl 500 MG Tablet PO (16:59)
[2019-05-26 17:06] LABS: Bedside Glucose 84 mg/dL (70-110)
[2019-05-26 20:40] VITALS: PULSE 56; RESP 18; BMI 11.5
[2019-05-26] MEDS: Aspirin 81 MG TAB.CHEW PO (20:46)
[2019-05-26 21:26] VITALS: BP 149/73; PULSE 56; RESP 18; TEMP 36.3; O2SAT 96
[2019-05-27 01:01] LABS: Bedside Glucose 97 mg/dL (70-110)
[2019-05-27] MEDS: oxyCODONE 5 MG Tablet PO ×2 (02:03→19:55)
--- NOTE | 2019-05-27 03:52 | NURSING ---
REVIEWED AND AGREE WITH [employer]S FUNCTIONAL ASSESSMENT AND HANDOFF CHARTING.
[2019-05-27] MEDS: Enoxaparin 40 MG/0.4 ML Syringe SC (05:37)
[2019-05-27] MEDS: Acetaminophen 500 MG Tablet 1000 MG PO ×3 (05:37→19:54)
[2019-05-27 06:26] LABS: Bedside Glucose 104 mg/dL (70-110)
[2019-05-27 07:21] VITALS: BP 115/56; PULSE 53; RESP 16; TEMP 36.5; O2SAT 94
[2019-05-27] MEDS: Multivitamins,Ther W-Minerals Tablet 1 TABLET PO (07:57)
[2019-05-27] MEDS: Lisinopril 10 MG Tablet PO (07:57)
[2019-05-27] MEDS: Senna/Docusate Sodium 1 Tablet 2 TABLET PO ×2 (07:57→19:55)
[2019-05-27] MEDS: Galantamine Hydrobromide 4 MG Tablet PO ×2 (07:57→16:57)
[2019-05-27] MEDS: amLODIPine 10 MG Tablet PO (07:57)
[2019-05-27] MEDS: Sertraline 50 MG Tablet PO (07:58)
[2019-05-27] MEDS: Vitamin E 400 UNITS Capsule PO (07:58)
[2019-05-27] MEDS: Glucerna Shake 120 ML LIQUID PO ×3 (07:58→19:54)
[2019-05-27] MEDS: Famotidine 20 MG Tablet PO (07:58)
[2019-05-27] MEDS: Menthol/Lanolin/Calamine/Znox 113 GM Tube 1 APPLIC TOPICAL ×2 (07:59→19:56)
--- NOTE | 2019-05-27 08:27 | PCM.PROGNOTE ---
Subjective: Afebrile Heart rate last night was in the 50s but the blood pressure is within normal limits. He is maintaining appropriate oxygen saturation on room air. Blood sugar record reviewed-blood sugars are in excellent control. No hypoglycemia. Discussed with nursing Reviewed PT/OT notes Medication list reviewed Pain is adequately controlled with Tylenol 1 g p.o. every 8 hours and as needed oxycodone. He averages 1-2 oxycodone daily. He is sleeping well and denies Nausea, abdominal pain, bowel dysfunction Mood is more upbeat than at admission and he seems to have a more + attitude. - Physical Exam Vitals/I&O's: Vital Signs Temp Pulse Resp BP Pulse Ox 97.7 F L 53 L 16 115/56 L 94 05/27/19 07:21 05/27/19 07:21 05/27/19 07:21 05/27/19 07:21 05/27/19 07:21 Oxygen Delivery Method Room Air Weight: 216 lb 14.958 oz Body Mass Index (BMI) 11.5 Finger Stick Blood Glucose 140 Intake and Output for Last 24 Hours 05/25/19 05/26/19 05/27/19 23:59 23:59 23:59 Intake Total 240 / 240 480 / 480 Balance 240 / 240 480 / 480 General: Alert, Oriented x3, Cooperative, No apparent distress HEENT: PERRLA Oral: Moist Mucosa Neck: Supple, No Nodes, Trachea Midline Lungs: Clear to auscultation, Normal air movement Cardiovascular: Regular rate, Regular Rhythm, Normal S1, Normal S2, No Gallop Abdomen: Bowel Sounds Present, Soft, Non Tender, Non-Distended Extremities: No clubbing, No cyanosis, No edema Skin: No rashes Neurological: Cranial nerves II-XII grossly intact, Neuro grossly intact Psych/Mental Status: Normal Affect, Appropriate Laboratory Results 05/26/19 17:00: POC Glucose 84 05/27/19 00:54: POC Glucose 97 05/27/19 06:23: POC Glucose 104 Current Medications Acetaminophen (Tylenol) 1,000 mg PO Q8 [facility] Last Admin: 05/27/19 05:37 Dose: 1,000 mg Documented by: Amlodipine Besylate (Norvasc) 10 mg PO DAILY [facility] Last Admin: 05/27/19 07:57 Dose: 10 mg Documented by: Aspirin (Aspirin, Baby) 81 mg PO QHS [facility] Last Admin: 05/26/19 20:46 Dose: 81 mg Documented by: Bisacodyl (Dulcolax) 10 mg RECTAL .PRN X 1 PRN PRN Reason: Constipation Calamine/Phenol (Calmoseptine Ointment) 1 applic TOPICAL BID [facility]; Protocol Last Admin: 05/27/19 07:59 Dose: 1 applicatio Documented by: Enoxaparin Sodium (Lovenox) 40 mg SC DAILY@0600 [facility] Last Admin: 05/27/19 05:37 Dose: 40 mg Documented by: Famotidine (Pepcid) 20 mg PO DAILY [facility] Last Admin: 05/27/19 07:58 Dose: 20 mg Documented by: [facility] Last Admin: 05/27/19 07:57 Dose: 4 mg Documented by: Lisinopril (Zestril) 10 mg PO DAILY [facility] Last Admin: 05/27/19 07:57 Dose: 10 mg Documented by: Magnesium Hydroxide (Milk Of Magnesia) 30 ml PO .PRN X 1 PRN PRN Reason: Constipation Metformin HCl (Glucophage) 500 mg PO DAILY@1700 [facility] Last Admin: 05/26/19 16:59 Dose: 500 mg Documented by: Multivitamins/Minerals (Multivitamin With Minerals) 1 tablet PO DAILY@0800 [facility] Last Admin: 05/27/19 07:57 Dose: 1 tablet Documented by: Naproxen (Naprosyn) 500 mg PO DAILY PRN PRN Reason: .MIGRAINE SYMPTOMS Nutritional Formula (Lactose Free) (Glucerna Shake) 120 ml PO 4X/DAY [facility] Last Admin: 05/27/19 07:58 Dose: 120 ml Documented by: Ondansetron HCl (Zofran) 8 mg PO Q8H PRN PRN PRN Reason: NAUSEA Last Admin: 05/22/19 13:00 Dose: 8 mg Documented by: Oxycodone HCl (Oxyir) 5 mg PO Q4H PRN PRN PRN Reason: Pain Score 1-10/10 Last Admin: 05/27/19 02:03 Dose: 5 mg Documented by: Rosuvastatin Calcium (Crestor) 10 mg PO MoFr@2200 [facility] Last Admin: 05/24/19 22:00 Dose: 10 mg Documented by: Senna/Docusate Sodium (Senokot-S, Leslye-Colace) 2 tablet PO BID [facility] Last Admin: 05/27/19 07:57 Dose: 2 tablet Documented by: Sertraline HCl (Zoloft) 50 mg PO DAILY [facility] Last Admin: 05/27/19 07:58 Dose: 50 mg Documented by: Vitamin [facility] ([facility]itamin E) [facility] Last Admin: 05/27/19 07:58 Dose: 400 units Documented by: Medical Necessity - Tobacco Use Smoking Status: Never smoker Tobacco Use: Non-smoker Assessment/Plan All Active Problems (Last Reviewed 02/01/18 @ 06:56 by Royer Maxwell MD) Numbness and tingling of right arm (Acute) Migraine (Acute) Closed right hip fracture (Acute) Debility (Acute) Mental status alteration (Acute) Generalized weakness (Acute) Impressions 1. Minimally displaced right trochanteric periprosthetic hip fracture resulting in debility - he has weakness on the left side due to prior stroke 2. vascular dementia 3. History of cancer of the tongue 4. Obstructive sleep apnea - wears his CPAP at night 5. Hyperlipidemia 6. Previous CVA with left hemiparesis 7. Cervical canal stenosis 8. Urinary incontinence - no high residuals. Can not get there in time, knows when he as to go 9. Hypertension - controlled 10. N/N anemia - possibly due to blood loss with the fracture. 11. History of migraines on PRN Maxalt 12. Diabetes mellitus type 2 - very well controlled. At his age and with his co-morbidities there is no need to tightly control the BS's. A HGBA1C of 7.5 - 8 would be satisfactory. Hemoglobin A1c in January was 5.8%. Even with decreasing the Metformin to 500 mg daily at suppertime he has frequent blood sugars less than 100. Will discontinue metformin and continue to monitor blood sugars. If blood sugars remain less than 1 80-200 will not reinstitute metformin. 13. depression - tolerating Sertraline and his mood seems better. Plan Continue PT for gait stability Continue OT for ADLs Bowel protocol Continue Tylenol 1 g p.o. every 8 hours -has been effective in controlling the right hip pain 50% partial weightbearing on the right lower extremity for 6 weeks from the date of his fall Fall precautions check a HH and a BMP in the AM Transition DVT prophylaxis to Eliquis 2.5 mg BID Code Visit Inpatient E&M: 41508 Subs Hosp L2
[2019-05-27 14:58] VITALS: BMI 11.5
[2019-05-27] MEDS: metFORMIN HCl 500 MG Tablet PO (16:57)
[2019-05-27 17:41] LABS: Bedside Glucose 130 mg/dL (70-110)
[2019-05-27 19:30] VITALS: BP 143/68; PULSE 70; RESP 18; TEMP 36.8; O2SAT 95; BMI 11.5
[2019-05-27] MEDS: Aspirin 81 MG TAB.CHEW PO (19:54)
[2019-05-27 20:07] VITALS: BP 143/68; PULSE 70; RESP 18; TEMP 36.8; O2SAT 95
[2019-05-28] MEDS: Acetaminophen 500 MG Tablet 1000 MG PO ×3 (05:25→21:53)
[2019-05-28 06:09] LABS: Hematocrit 35.9 % (40-54); Hemoglobin 11.7 g/dL (13.0-16.5)
[2019-05-28 06:30] LABS: Anion Gap 5 (5-15); BUN 21 mg/dL (7-18); BUN/Creat Ratio 27.1 RATIO (10-20); Calcium,Total 8.5 mg/dL (8.5-10.1); Chloride 104 mmol/L (98-107); Creatinine, Serum 0.77 mg/dL (0.70-1.30); EST Glomerular Filtration Rate 103 mL/min (>60); Est Glom Filt Rate - Afr Amer 125 mL/min (>60); Estimated Creatinine Clearance 74.74 ml/min; Glucose 113 mg/dL (74-106); Sodium Level 137 mmol/L (136-145)
[2019-05-28 06:50] LABS: Bedside Glucose 109 mg/dL (70-110)
[2019-05-28 07:20] VITALS: BP 139/71; PULSE 61; RESP 16; TEMP 36.6; O2SAT 94
[2019-05-28] MEDS: Lisinopril 10 MG Tablet PO (08:00)
[2019-05-28] MEDS: Senna/Docusate Sodium 1 Tablet 2 TABLET PO ×2 (08:00→21:53)
[2019-05-28] MEDS: Galantamine Hydrobromide 4 MG Tablet PO ×2 (08:00→16:33)
[2019-05-28] MEDS: Sertraline 50 MG Tablet PO (08:00)
[2019-05-28] MEDS: Vitamin E 400 UNITS Capsule PO (08:00)
[2019-05-28] MEDS: APIXABAN 2.5 MG TABLET PO ×2 (08:00→21:53)
[2019-05-28] MEDS: Famotidine 20 MG Tablet PO (08:00)
[2019-05-28] MEDS: amLODIPine 10 MG Tablet PO (08:00)
[2019-05-28] MEDS: Multivitamins,Ther W-Minerals Tablet 1 TABLET PO (08:01)
[2019-05-28] MEDS: oxyCODONE 5 MG Tablet PO ×3 (08:06→16:33)
[2019-05-28] MEDS: Menthol/Lanolin/Calamine/Znox 113 GM Tube 1 APPLIC TOPICAL ×2 (08:07→21:55)
--- NOTE | 2019-05-28 09:05 | PN_ITS ---
Subjective: Afebile VSS -systolic blood pressure remains mildly elevated over the past 3 to 4 days. Diastolic pressure is less than 70 as a general rule. Maintaining appropriate oxygen saturation on RA-94 to 95% on room air Discussed with nursing - no problems that need addressed Reviewed the PT/OT/ST notes Medication list reviewed. All lab was personally reviewed. Hemoglobin is 12.7 today, up from 11.1 on 05/15/2019. Creatinine is stable at 0.77 and the BUN is 21. BMP is unremarkable. Blood sugars are under excellent control. Several BS's recently < 100. No need for this tight of control in a pt who is 79 with hx of CVA and vacular dementia. - Physical Exam Vitals/I&O's: Vital Signs Temp Pulse Resp BP Pulse Ox 98 F 61 16 139/71 H 94 05/28/19 07:20 05/28/19 07:20 05/28/19 07:20 05/28/19 07:20 05/28/19 07:20 Oxygen Delivery Method Room Air Weight: 216 lb 14.958 oz Body Mass Index (BMI) 11.5 Finger Stick Blood Glucose 140 Intake and Output for Last 24 Hours 05/26/19 05/27/19 05/28/19 23:59 23:59 23:59 Intake Total 480 / 480 360 / 360 240 / 240 Balance 480 / 480 360 / 360 240 / 240 General: Alert, Cooperative Oral: Dry Mucosa Lungs: Clear to auscultation Cardiovascular: Regular rate, Regular Rhythm Abdomen: Bowel Sounds Present, Soft, Non Tender, Non-Distended Extremities: No edema Neurological: Cranial nerves II-XII grossly intact, Neuro grossly intact Psych/Mental Status: Normal Affect, Appropriate Laboratory Results 05/27/19 17:32: POC Glucose 130 H 05/28/19 05:47: POC Glucose 109 05/28/19 05:51: Hgb 11.7 L, Hct 35.9 L 05/28/19 05:51: Sodium 137, Potassium 4.0, Chloride 104, Carbon Dioxide 28.0, Anion Gap 5, BUN 21 H, Creatinine 0.77, Estim Creat Clear Calc 74.74, Est GFR (MDRD) Af Amer 125, Est GFR (MDRD) Non-Af 103, BUN/Creatinine Ratio 27.1 H, Glucose 113 H, Calcium 8.5 Current Medications Acetaminophen (Tylenol) 1,000 mg PO Q8 [facility] Last Admin: 05/28/19 05:25 Dose: 1,000 mg Documented by: Amlodipine Besylate (Norvasc) 10 mg PO DAILY [facility] Last Admin: 05/28/19 08:00 Dose: 10 mg Documented by: Apixaban (Eliquis) 2.5 mg PO BID [facility] Last Admin: 05/28/19 08:00 Dose: 2.5 mg Documented by: Aspirin (Aspirin, Baby) 81 mg PO QHS [facility] Last Admin: 05/27/19 19:54 Dose: 81 mg Documented by: Bisacodyl (Dulcolax) 10 mg RECTAL .PRN X 1 PRN PRN Reason: Constipation Calamine/Phenol (Calmoseptine Ointment) 1 applic TOPICAL BID [facility]; Protocol Last Admin: 05/28/19 08:07 Dose: 1 applicatio Documented by: Famotidine (Pepcid) 20 mg PO DAILY [facility] Last Admin: 05/28/19 08:00 Dose: 20 mg Documented by: Galantamine [facility]bromide ([facility]azadyne) [facility] Last Admin: 05/28/19 08:00 Dose: 4 mg Documented by: Lisinopril (Zestril) 10 mg PO DAILY [facility] Last Admin: 05/28/19 08:00 Dose: 10 mg Documented by: Magnesium Hydroxide (Milk Of Magnesia) 30 ml PO .PRN X 1 PRN PRN Reason: Constipation Metformin HCl (Glucophage) 500 mg PO DAILY@1700 [facility] Last Admin: 05/27/19 16:57 Dose: 500 mg Documented by: Multivitamins/Minerals (Multivitamin With Minerals) 1 tablet PO DAILY@0800 [facility] Last Admin: 05/28/19 08:01 Dose: 1 tablet Documented by: Naproxen (Naprosyn) 500 mg PO DAILY PRN PRN Reason: .MIGRAINE SYMPTOMS Nutritional Formula (Lactose Free) (Glucerna Shake) 120 ml PO 4X/DAY [facility] Last Admin: 05/28/19 08:08 Dose: Not Given Documented by: Ondansetron HCl (Zofran) 8 mg PO Q8H PRN PRN PRN Reason: NAUSEA Last Admin: 05/22/19 13:00 Dose: 8 mg Documented by: Oxycodone HCl (Oxyir) 5 mg PO Q4H PRN PRN PRN Reason: Pain Score 1-1010 Last Admin: 05/28/19 08:06 Dose: 5 mg Documented by: Rosuvastatin Calcium (Crestor) 10 mg PO MoFr@2200 [facility] Last Admin: 05/27/19 19:54 Dose: 10 mg Documented by: Senna/Docusate Sodium (Senokot-S, Leslye-Colace) 2 tablet PO BID [facility] Last Admin: 05/28/19 08:00 Dose: 2 tablet Documented by: Sertraline HCl (Zoloft) 50 mg PO DAILY [facility] Last Admin: 05/28/19 08:00 Dose: 50 mg Documented by: Vitamin E (Vitamin E) 400 units PO DAILYCM [facility] Last Admin: 05/28/19 08:00 Dose: 400 units Documented by: Medical Necessity - Tobacco Use Smoking Status: Never smoker Tobacco Use: Non-smoker Assessment/Plan All Active Problems (Last Reviewed 02/01/18 @ 06:56 by Royer Maxwell MD) Numbness and tingling of right arm (Acute) Migraine (Acute) Closed right hip fracture (Acute) Debility (Acute) Mental status alteration (Acute) Generalized weakness (Acute) Impressions 1. Minimally displaced right trochanteric periprosthetic hip fracture resulting in debility - he has weakness on the left side due to prior stroke 2. vascular dementia 3. History of cancer of the tongue 4. Obstructive sleep apnea - wears his CPAP at night 5. Hyperlipidemia 6. Previous CVA with left hemiparesis 7. Cervical canal stenosis 8. Urinary incontinence - no high residuals. Can not get there in time, knows when he as to go 9. Hypertension - systolic BP is not adequately controlled. Will increase the Lisinopril 10. N/N anemia - possibly due to blood loss with the fracture. 11. History of migraines on PRN Maxalt 12. Diabetes mellitus type 2 - very well controlled. At his age and with his co-morbidities there is no need to tightly control the BS's. A HGBA1C of 7.5 - 8 would be satisfactory 13. suspected depression - tolerating Sertraline and his mood seems better. Plan Continue PT for gait stability Continue OT for ADLs Bowel protocol Continue Tylenol 1 g p.o. every 8 hours -has been effective in controlling the right hip pain 50% partial weightbearing on the right lower extremity for 6 weeks from the date of his fall Fall precautions Increase the Lisinopril to 15 mg daily to better control the systolic BP in light of hx of CVA. DC the metformin and continue to monitor the BS's......if no BS > 180 will leave him off Metformin and control BS's with diet alone. Encouraged him to drink more Code Visit Inpatient E&M: 44589 Subs Hosp L2
[2019-05-28 09:38] VITALS: BMI 11.5
[2019-05-28] MEDS: Glucerna Shake 120 ML LIQUID PO ×3 (13:46→21:54)
[2019-05-28 17:31] LABS: Bedside Glucose 144 mg/dL (70-110)
[2019-05-28 20:20] VITALS: BP 130/63; PULSE 57; RESP 16; TEMP 36.4; O2SAT 97
[2019-05-28 20:50] VITALS: PULSE 57; RESP 16; O2SAT 97; BMI 11.5
[2019-05-28] MEDS: Aspirin 81 MG TAB.CHEW PO (21:53)
[2019-05-29] MEDS: Acetaminophen 500 MG Tablet 1000 MG PO ×3 (06:58→19:55)
[2019-05-29 07:05] LABS: Bedside Glucose 103 mg/dL (70-110)
[2019-05-29 08:00] VITALS: BP 159/92; PULSE 67; RESP 16; TEMP 36.6; O2SAT 95
[2019-05-29] MEDS: Lisinopril 10 MG Tablet 15 MG PO (08:02)
[2019-05-29] MEDS: Glucerna Shake 120 ML LIQUID PO ×4 (08:02→19:55)
[2019-05-29] MEDS: Senna/Docusate Sodium 1 Tablet 2 TABLET PO (08:06)
[2019-05-29] MEDS: Sertraline 50 MG Tablet PO (08:06)
[2019-05-29] MEDS: Galantamine Hydrobromide 4 MG Tablet PO ×2 (08:07→17:16)
[2019-05-29] MEDS: Menthol/Lanolin/Calamine/Znox 113 GM Tube 1 APPLIC TOPICAL ×2 (08:07→19:54)
[2019-05-29] MEDS: Famotidine 20 MG Tablet PO (08:07)
[2019-05-29] MEDS: Vitamin E 400 UNITS Capsule PO (08:07)
[2019-05-29] MEDS: APIXABAN 2.5 MG TABLET PO ×2 (08:07→19:55)
[2019-05-29] MEDS: amLODIPine 10 MG Tablet PO (08:07)
[2019-05-29] MEDS: Multivitamins,Ther W-Minerals Tablet 1 TABLET PO (08:07)
[2019-05-29] MEDS: oxyCODONE 5 MG Tablet PO (10:14)
[2019-05-29 15:26] VITALS: BMI 11.5
--- NOTE | 2019-05-29 16:12 | CHAPLAIN ---
Type of Pastoral Visit ___ Initial Visit _x__ Follow-up Visit ___ On-call Visit ___ General Patient Visit ___ Spiritual Assessment ___ Family Conference ___ Bereavement ___ Rapid Response ___ Code Blue ___ Other (describe below) Pastoral Care Referral From _x__ Patient ___ Family ___ Nurse ___ Physician ___ [employer]orer [employer] ___ Manager [employer] ___ Other (describe below) Sacrament/Intervention _x__ Active listening ___ Anointing ___ Adventist ___ Bereavement ___ Communion ___ Tasha exploration ___ _x__ Life review _x__ Prayer ___ Reconciliation ___ Sacrament of Sick ___ Supportive presence ___ Wedding ___ Other (describe below) Pastoral Comments
[2019-05-29] MEDS: Magnesium Hydroxide 30 ML UDC PO (17:16)
[2019-05-29 17:30] LABS: Bedside Glucose 113 mg/dL (70-110)
[2019-05-29 19:30] VITALS: BP 124/61; PULSE 64; RESP 14; TEMP 36.8; O2SAT 94
[2019-05-29] MEDS: Aspirin 81 MG TAB.CHEW PO (19:54)
[2019-05-30 01:29] VITALS: BMI 11.5
[2019-05-30] MEDS: Acetaminophen 500 MG Tablet 1000 MG PO ×3 (06:08→21:10)
[2019-05-30 06:56] LABS: Bedside Glucose 115 mg/dL (70-110)
[2019-05-30 08:12] VITALS: BP 149/73; PULSE 61; RESP 18; TEMP 36.4; O2SAT 95
[2019-05-30] MEDS: Lisinopril 10 MG Tablet 15 MG PO (08:18)
[2019-05-30] MEDS: Menthol/Lanolin/Calamine/Znox 113 GM Tube 1 APPLIC TOPICAL ×2 (08:19→21:10)
[2019-05-30] MEDS: Galantamine Hydrobromide 4 MG Tablet PO ×2 (08:19→17:48)
[2019-05-30] MEDS: Vitamin E 400 UNITS Capsule PO (08:19)
[2019-05-30] MEDS: Multivitamins,Ther W-Minerals Tablet 1 TABLET PO (08:19)
[2019-05-30] MEDS: Sertraline 50 MG Tablet PO (08:19)
[2019-05-30] MEDS: APIXABAN 2.5 MG TABLET PO ×2 (08:19→21:10)
[2019-05-30] MEDS: amLODIPine 10 MG Tablet PO (08:19)
[2019-05-30] MEDS: Famotidine 20 MG Tablet PO (08:19)
[2019-05-30] MEDS: Senna/Docusate Sodium 1 Tablet 2 TABLET PO ×2 (08:19→21:10)
[2019-05-30] MEDS: Glucerna Shake 120 ML LIQUID PO ×3 (09:19→21:10)
[2019-05-30 14:54] VITALS: BMI 11.5
[2019-05-30 17:46] LABS: Bedside Glucose 90 mg/dL (70-110)
[2019-05-30] MEDS: Aspirin 81 MG TAB.CHEW PO (21:10)
[2019-05-30 22:00] VITALS: BP 143/72; PULSE 90; RESP 96; TEMP 36.4; O2SAT 96
[2019-05-31 00:36] VITALS: BMI 11.5
--- NOTE | 2019-05-31 04:58 | NURSING ---
Reviewed and agree with LPNs handoff
[2019-05-31] MEDS: Acetaminophen 500 MG Tablet 1000 MG PO ×2 (06:18→13:55)
[2019-05-31 06:26] LABS: Bedside Glucose 101 mg/dL (70-110)
[2019-05-31 07:00] VITALS: BP 126/66; PULSE 60; RESP 18; TEMP 36.7; O2SAT 94
[2019-05-31] MEDS: Senna/Docusate Sodium 1 Tablet 2 TABLET PO (08:12)
[2019-05-31] MEDS: Multivitamins,Ther W-Minerals Tablet 1 TABLET PO (08:12)
[2019-05-31] MEDS: Vitamin E 400 UNITS Capsule PO (08:12)
[2019-05-31] MEDS: Sertraline 50 MG Tablet PO (08:12)
[2019-05-31] MEDS: Galantamine Hydrobromide 4 MG Tablet PO (08:12)
[2019-05-31] MEDS: Glucerna Shake 120 ML LIQUID PO ×2 (08:12→13:57)
[2019-05-31] MEDS: amLODIPine 10 MG Tablet PO (08:13)
[2019-05-31] MEDS: APIXABAN 2.5 MG TABLET PO (08:13)
[2019-05-31] MEDS: Famotidine 20 MG Tablet PO (08:13)
[2019-05-31] MEDS: Lisinopril 10 MG Tablet 15 MG PO (08:13)
[2019-05-31] MEDS: Menthol/Lanolin/Calamine/Znox 113 GM Tube 1 APPLIC TOPICAL (08:13)
[2019-05-31 13:18] VITALS: BMI 11.5
--- NOTE | 2019-05-31 13:49 | PCM.TXEXTCAR ---
- Diet 05/14/19 16:10 Diet: Regular Diet Food consistency:: Soft Liquid Consistency:: Regular/Thin Diet Comments: cut solids into bite size pieces, no salt per pt request - Routine Orders/Code Status Enema Type: Fleetz Enema Frequency: Daily PRN Suppository Type: Dulcolax 10mg Suppository Frequency: Daily PRN O2 Liters per Minute: 1-2 O2 Frequency: PRN Keep PO Greater than or Equal to (%): 90 - Wound(s) rt ac Wound Type: IV wound - Therapies Weight Bearing: Partial weight bearing Extremity Affected:: Right Lower Physical Therapy: Eval and Treat Occupational Therapy: Eval and Treat - Problem/Diagnosis (1) Closed right hip fracture Status: Acute Current Visit: No (2) Debility Status: Acute Current Visit: No (3) Generalized weakness Status: Acute Current Visit: No (4) Migraine Status: Chronic Current Visit: No (5) Cerebrovascular disease Status: Chronic Current Visit: No (6) Cervical spinal stenosis Status: Chronic Current Visit: No (7) HTN (hypertension) Status: Chronic Current Visit: No (8) Hyperlipidemia Status: Chronic Current Visit: No (9) Left hemiparesis Status: Chronic Current Visit: No (10) Obstructive sleep apnea Status: Chronic Current Visit: No (11) Overactive bladder Status: Chronic Current Visit: No (12) Stroke Status: Chronic Current Visit: No (13) Tongue cancer Status: Chronic Current Visit: No (14) Vascular dementia Status: Chronic Current Visit: No (15) Diabetes mellitus type 2 in nonobese Status: Chronic Current Visit: Yes (16) Depression Status: Acute Current Visit: Yes (17) Normochromic normocytic anemia Status: Acute Comment: Likely secondary to blood loss from recent hip fracture Current Visit: Yes (18) Urinary incontinence Status: Chronic Current Visit: Yes - Allergies/Procedures Done in Hospital Allergies/Adverse Reactions: Allergies chocolate flavor Adverse Reaction (Unknown, Verified 05/11/19 17:38) Other headache Pork/Porcine Containing Products Adverse Reaction (Unknown, Verified 05/11/19 17:38) Other headache atorvastatin [From Lipitor] Adverse Reaction (Verified 05/11/19 17:38) Other stomach issues oxybutynin Adverse Reaction (Verified 05/11/19 13:09) Other Procedures: None - Type of Care/Length of Stay Estimated LOS: Convalescent Care Less Than 30 days Type of Care Needed: Skilled Rehab Potential: Good Prognosis: Good - Additional Orders/Day of Discharge H&P will serve as current which was dated: 05/11/19 Day of Discharge: 05/31/19 - Dietary and Speech Recommendations Dietitian Recommendations/Changes: Recommend continue Regular Diet with Glucerna on Medpass. - Follow Up Care Primary Care Physician: Gildardo Catherine MD [Primary Care Provider] - Please follow up with your Primary Care Physician in: Following discharge from TCU Please Follow Up With: Davy Myers MD When: in 4 weeks
--- NOTE | 2019-05-31 14:00 | DS.PCM_ITS ---
Discharge Date and Diagnosis - Problem List Patient Problems: Active and Suspected Problems (Last Reviewed 02/01/18 @ 06:56 by Royer Maxwell MD) Depression (Acute) Normochromic normocytic anemia (Acute) Likely secondary to blood loss from recent hip fracture Date of Admission: 05/14/19 Date of Discharge: 05/31/19 - Primary Discharge Diagnosis Active and Suspected Problems (Last Reviewed 02/01/18 @ 06:56 by Royer portillo MD) Debility secondary to closed right periprosthetic hip fracture Depression (Acute) Normochromic normocytic anemia (Acute) Likely secondary to blood loss from hip fracture Thrombocytopenia-resolved - Secondary Discharge Diagnosis Chronic Problems (Last Reviewed 02/01/18 @ 06:56 by Royer Maxwell MD) Vascular dementia (Chronic) Cervical spinal stenosis (Chronic) Left hemiparesis (Chronic) Tongue cancer (Chronic) Obstructive sleep apnea (Chronic) Hyperlipidemia (Chronic) Overactive bladder (Chronic) Migraine (Chronic) Diabetes mellitus type 2 in nonobese (Chronic) Urinary incontinence (Chronic) Cerebrovascular disease (Chronic) Stroke (Chronic) HTN (hypertension) (Chronic) Hospital Course and Treatment Imaging Results: Clinical Impression(s) from Imaging Studies Hip/Pelvis X-Ray 05/20/19 13:40 IMPRESSION: Right hip arthroplasty with mildly displaced fracture of the right greater trochanter. Electronically Signed: Freddy Street MD at 14:15 EST Tel , Service support , Laboratory Tests 05/31/19 05/30/19 05/30/19 Range/Units 06:14 17:20 06:24 WBC (4.4-11.0) K/mm3 RBC (4.6-6.2) M/mm3 Hgb (13.0-16.5) g/dL Hct (40-54) % MCV (80-94) fL MCH (27.0-32.0) pg MCHC (32-36) g/dL RDW Std Deviation (35.1-43.9) fl RDW Coeff of Earline (11.6-14.6) % Plt Count (150-450) K/mm3 MPV (6.2-12.0) fl Immature Gran % (Auto) (0.0-0.9) % Neut % (Auto) (47-70) % Lymph % (Auto) (19-41) % Hart % (Auto) (0-10) % Eos % (Auto) (0-5) % Baso % (Auto) (0-1) % Absolute Neuts (auto) (2.0-7.7) X10^3/uL Absolute Lymphs (auto) (0.83-4.51) X10^3/uL Nucleated RBC % (0-5) % Sodium (136-145) mmol/L Potassium (3.5-5.1) mmol/L Chloride (98-107) mmol/L Carbon Dioxide (21.0-32.0) mmol/L Anion Gap (5-15) BUN (7-18) mg/dL Creatinine (0.70-1.30) mg/dL Estim Creat Clear Calc ml/min Est GFR (MDRD) Af Amer (>60) mL/min Est GFR (MDRD) Non-Af (>60) mL/min BUN/Creatinine Ratio (10-20) RATIO Glucose (74-106) mg/dL Calcium (8.5-10.1) mg/dL POC Glucose 101 90 115 H (70-110) mg/dL 05/29/19 05/29/19 05/28/19 Range/Units 17:16 06:35 17:27 WBC (4.4-11.0) K/mm3 RBC (4.6-6.2) M/mm3 Hgb (13.0-16.5) g/dL Hct (40-54) % MCV (80-94) fL MCH (27.0-32.0) pg MCHC (32-36) g/dL RDW Std Deviation (35.1-43.9) fl RDW Coeff of Earline (11.6-14.6) % Plt Count (150-450) K/mm3 MPV (6.2-12.0) fl Immature Gran % (Auto) (0.0-0.9) % Neut % (Auto) (47-70) % Lymph % (Auto) (19-41) % Hart % (Auto) (0-10) % Eos % (Auto) (0-5) % Baso % (Auto) (0-1) % Absolute Neuts (auto) (2.0-7.7) X10^3/uL Absolute Lymphs (auto) (0.83-4.51) X10^3/uL Nucleated RBC % (0-5) % Sodium (136-145) mmol/L Potassium (3.5-5.1) mmol/L Chloride (98-107) mmol/L Carbon Dioxide (21.0-32.0) mmol/L Anion Gap (5-15) BUN (7-18) mg/dL Creatinine (0.70-1.30) mg/dL Estim Creat Clear Calc ml/min Est GFR (MDRD) Af Amer (>60) mL/min Est GFR (MDRD) Non-Af (>60) mL/min BUN/Creatinine Ratio (10-20) RATIO Glucose (74-106) mg/dL Calcium (8.5-10.1) mg/dL POC Glucose 113 H 103 144 H (70-110) mg/dL 05/28/19 05/28/19 05/28/19 Range/Units 05:51 05:51 05:47 WBC (4.4-11.0) K/mm3 RBC (4.6-6.2) M/mm3 Hgb 11.7 L (13.0-16.5) g/dL Hct 35.9 L (40-54) % MCV (80-94) fL MCH (27.0-32.0) pg MCHC (32-36) g/dL RDW Std Deviation (35.1-43.9) fl RDW Coeff of Earline (11.6-14.6) % Plt Count (150-450) K/mm3 MPV (6.2-12.0) fl Immature Gran % (Auto) (0.0-0.9) % Neut % (Auto) (47-70) % Lymph % (Auto) (19-41) % Hart % (Auto) (0-10) % Eos % (Auto) (0-5) % Baso % (Auto) (0-1) % Absolute Neuts (auto) (2.0-7.7) X10^3/uL Absolute Lymphs (auto) (0.83-4.51) X10^3/uL Nucleated RBC % (0-5) % Sodium 137 (136-145) mmol/L Potassium 4.0 (3.5-5.1) mmol/L Chloride 104 (98-107) mmol/L Carbon Dioxide 28.0 (21.0-32.0) mmol/L Anion Gap 5 (5-15) BUN 21 H (7-18) mg/dL Creatinine 0.77 (0.70-1.30) mg/dL Estim Creat Clear Calc 74.74 ml/min Est GFR (MDRD) Af Amer 125 (>60) mL/min Est GFR (MDRD) Non-Af 103 (>60) mL/min BUN/Creatinine Ratio 27.1 H (10-20) RATIO Glucose 113 H (74-106) mg/dL Calcium 8.5 (8.5-10.1) mg/dL POC Glucose 109 (70-110) mg/dL 05/27/19 05/27/19 05/27/19 Range/Units 17:32 06:23 00:54 WBC (4.4-11.0) K/mm3 RBC (4.6-6.2) M/mm3 Hgb (13.0-16.5) g/dL Hct (40-54) % MCV (80-94) fL MCH (27.0-32.0) pg MCHC (32-36) g/dL RDW Std Deviation (35.1-43.9) fl RDW Coeff of Earline (11.6-14.6) % Plt Count (150-450) K/mm3 MPV (6.2-12.0) fl Immature Gran % (Auto) (0.0-0.9) % Neut % (Auto) (47-70) % Lymph % (Auto) (19-41) % Hart % (Auto) (0-10) % Eos % (Auto) (0-5) % Baso % (Auto) (0-1) % Absolute Neuts (auto) (2.0-7.7) X10^3/uL Absolute Lymphs (auto) (0.83-4.51) X10^3/uL Nucleated RBC % (0-5) % Sodium (136-145) mmol/L Potassium (3.5-5.1) mmol/L Chloride (98-107) mmol/L Carbon Dioxide (21.0-32.0) mmol/L Anion Gap (5-15) BUN (7-18) mg/dL Creatinine (0.70-1.30) mg/dL Estim Creat Clear Calc ml/min Est GFR (MDRD) Af Amer (>60) mL/min Est GFR (MDRD) Non-Af (>60) mL/min BUN/Creatinine Ratio (10-20) RATIO Glucose (74-106) mg/dL Calcium (8.5-10.1) mg/dL POC Glucose 130 H 104 97 (70-110) mg/dL 05/26/19 05/26/19 05/25/19 Range/Units 17:00 06:51 16:55 WBC (4.4-11.0) K/mm3 RBC (4.6-6.2) M/mm3 Hgb (13.0-16.5) g/dL Hct (40-54) % MCV (80-94) fL MCH (27.0-32.0) pg MCHC (32-36) g/dL RDW Std Deviation (35.1-43.9) fl RDW Coeff of Earline (11.6-14.6) % Plt Count (150-450) K/mm3 MPV (6.2-12.0) fl Immature Gran % (Auto) (0.0-0.9) % Neut % (Auto) (47-70) % Lymph % (Auto) (19-41) % Hart % (Auto) (0-10) % Eos % (Auto) (0-5) % Baso % (Auto) (0-1) % Absolute Neuts (auto) (2.0-7.7) X10^3/uL Absolute Lymphs (auto) (0.83-4.51) X10^3/uL Nucleated RBC % (0-5) % Sodium (136-145) mmol/L Potassium (3.5-5.1) mmol/L Chloride (98-107) mmol/L Carbon Dioxide (21.0-32.0) mmol/L Anion Gap (5-15) BUN (7-18) mg/dL Creatinine (0.70-1.30) mg/dL Estim Creat Clear Calc ml/min Est GFR (MDRD) Af Amer (>60) mL/min Est GFR (MDRD) Non-Af (>60) mL/min BUN/Creatinine Ratio (10-20) RATIO Glucose (74-106) mg/dL Calcium (8.5-10.1) mg/dL POC Glucose 84 107 124 H (70-110) mg/dL 05/25/19 05/24/19 05/24/19 Range/Units 06:20 16:47 06:05 WBC (4.4-11.0) K/mm3 RBC (4.6-6.2) M/mm3 Hgb (13.0-16.5) g/dL Hct (40-54) % MCV (80-94) fL MCH (27.0-32.0) pg MCHC (32-36) g/dL RDW Std Deviation (35.1-43.9) fl RDW Coeff of Earline (11.6-14.6) % Plt Count (150-450) K/mm3 MPV (6.2-12.0) fl Immature Gran % (Auto) (0.0-0.9) % Neut % (Auto) (47-70) % Lymph % (Auto) (19-41) % Hart % (Auto) (0-10) % Eos % (Auto) (0-5) % Baso % (Auto) (0-1) % Absolute Neuts (auto) (2.0-7.7) X10^3/uL Absolute Lymphs (auto) (0.83-4.51) X10^3/uL Nucleated RBC % (0-5) % Sodium (136-145) mmol/L Potassium (3.5-5.1) mmol/L Chloride (98-107) mmol/L Carbon Dioxide (21.0-32.0) mmol/L Anion Gap (5-15) BUN (7-18) mg/dL Creatinine (0.70-1.30) mg/dL Estim Creat Clear Calc ml/min Est GFR (MDRD) Af Amer (>60) mL/min Est GFR (MDRD) Non-Af (>60) mL/min BUN/Creatinine Ratio (10-20) RATIO Glucose (74-106) mg/dL Calcium (8.5-10.1) mg/dL POC Glucose 113 H 94 113 H (70-110) mg/dL 05/23/19 05/23/19 05/22/19 Range/Units 18:17 06:29 18:47 WBC (4.4-11.0) K/mm3 RBC (4.6-6.2) M/mm3 Hgb (13.0-16.5) g/dL Hct (40-54) % MCV (80-94) fL MCH (27.0-32.0) pg MCHC (32-36) g/dL RDW Std Deviation (35.1-43.9) fl RDW Coeff of Earline (11.6-14.6) % Plt Count (150-450) K/mm3 MPV (6.2-12.0) fl Immature Gran % (Auto) (0.0-0.9) % Neut % (Auto) (47-70) % Lymph % (Auto) (19-41) % Hart % (Auto) (0-10) % Eos % (Auto) (0-5) % Baso % (Auto) (0-1) % Absolute Neuts (auto) (2.0-7.7) X10^3/uL Absolute Lymphs (auto) (0.83-4.51) X10^3/uL Nucleated RBC % (0-5) % Sodium (136-145) mmol/L Potassium (3.5-5.1) mmol/L Chloride (98-107) mmol/L Carbon Dioxide (21.0-32.0) mmol/L Anion Gap (5-15) BUN (7-18) mg/dL Creatinine (0.70-1.30) mg/dL Estim Creat Clear Calc ml/min Est GFR (MDRD) Af Amer (>60) mL/min Est GFR (MDRD) Non-Af (>60) mL/min BUN/Creatinine Ratio (10-20) RATIO Glucose (74-106) mg/dL Calcium (8.5-10.1) mg/dL POC Glucose 171 H 111 H 151 H (70-110) mg/dL 05/22/19 05/21/19 05/21/19 Range/Units 06:33 17:49 06:37 WBC (4.4-11.0) K/mm3 RBC (4.6-6.2) M/mm3 Hgb (13.0-16.5) g/dL Hct (40-54) % MCV (80-94) fL MCH (27.0-32.0) pg MCHC (32-36) g/dL RDW Std Deviation (35.1-43.9) fl RDW Coeff of Earline (11.6-14.6) % Plt Count (150-450) K/mm3 MPV (6.2-12.0) fl Immature Gran % (Auto) (0.0-0.9) % Neut % (Auto) (47-70) % Lymph % (Auto) (19-41) % Hart % (Auto) (0-10) % Eos % (Auto) (0-5) % Baso % (Auto) (0-1) % Absolute Neuts (auto) (2.0-7.7) X10^3/uL Absolute Lymphs (auto) (0.83-4.51) X10^3/uL Nucleated RBC % (0-5) % Sodium (136-145) mmol/L Potassium (3.5-5.1) mmol/L Chloride (98-107) mmol/L Carbon Dioxide (21.0-32.0) mmol/L Anion Gap (5-15) BUN (7-18) mg/dL Creatinine (0.70-1.30) mg/dL Estim Creat Clear Calc ml/min Est GFR (MDRD) Af Amer (>60) mL/min Est GFR (MDRD) Non-Af (>60) mL/min BUN/Creatinine Ratio (10-20) RATIO Glucose (74-106) mg/dL Calcium (8.5-10.1) mg/dL POC Glucose 112 H 139 H 120 H (70-110) mg/dL 05/21/19 05/21/19 05/20/19 Range/Units 05:27 05:27 17:42 WBC 5.4 (4.4-11.0) K/mm3 RBC 3.76 L (4.6-6.2) M/mm3 Hgb 11.4 L (13.0-16.5) g/dL Hct 34.8 L (40-54) % MCV 92.6 (80-94) fL MCH 30.3 (27.0-32.0) pg MCHC 32.8 (32-36) g/dL RDW Std Deviation 43.8 (35.1-43.9) fl RDW Coeff of Earline 13.2 (11.6-14.6) % Plt Count 193 (150-450) K/mm3 MPV 9.9 (6.2-12.0) fl Immature Gran % (Auto) (0.0-0.9) % Neut % (Auto) (47-70) % Lymph % (Auto) (19-41) % Hart % (Auto) (0-10) % Eos % (Auto) (0-5) % Baso % (Auto) (0-1) % Absolute Neuts (auto) (2.0-7.7) X10^3/uL Absolute Lymphs (auto) (0.83-4.51) X10^3/uL Nucleated RBC % (0-5) % Sodium 139 (136-145) mmol/L Potassium 4.2 (3.5-5.1) mmol/L Chloride 105 (98-107) mmol/L Carbon Dioxide 28.0 (21.0-32.0) mmol/L Anion Gap 6 (5-15) BUN 26 H (7-18) mg/dL Creatinine 0.78 (0.70-1.30) mg/dL Estim Creat Clear Calc 74.74 ml/min Est GFR (MDRD) Af Amer 124 (>60) mL/min Est GFR (MDRD) Non-Af 103 (>60) mL/min BUN/Creatinine Ratio 33.4 H (10-20) RATIO Glucose 106 (74-106) mg/dL Calcium 8.9 (8.5-10.1) mg/dL POC Glucose 157 H (70-110) mg/dL 05/20/19 05/20/19 05/19/19 Range/Units 06:55 06:33 21:45 WBC (4.4-11.0) K/mm3 RBC (4.6-6.2) M/mm3 Hgb (13.0-16.5) g/dL Hct (40-54) % MCV (80-94) fL MCH (27.0-32.0) pg MCHC (32-36) g/dL RDW Std Deviation (35.1-43.9) fl RDW Coeff of Earline (11.6-14.6) % Plt Count (150-450) K/mm3 MPV (6.2-12.0) fl Immature Gran % (Auto) (0.0-0.9) % Neut % (Auto) (47-70) % Lymph % (Auto) (19-41) % Hart % (Auto) (0-10) % Eos % (Auto) (0-5) % Baso % (Auto) (0-1) % Absolute Neuts (auto) (2.0-7.7) X10^3/uL Absolute Lymphs (auto) (0.83-4.51) X10^3/uL Nucleated RBC % (0-5) % Sodium (136-145) mmol/L Potassium (3.5-5.1) mmol/L Chloride (98-107) mmol/L Carbon Dioxide (21.0-32.0) mmol/L Anion Gap (5-15) BUN (7-18) mg/dL Creatinine (0.70-1.30) mg/dL Estim Creat Clear Calc ml/min Est GFR (MDRD) Af Amer (>60) mL/min Est GFR (MDRD) Non-Af (>60) mL/min BUN/Creatinine Ratio (10-20) RATIO Glucose (74-106) mg/dL Calcium (8.5-10.1) mg/dL POC Glucose 99 95 120 H (70-110) mg/dL 05/19/19 05/18/19 05/18/19 Range/Units 07:07 18:12 06:46 WBC (4.4-11.0) K/mm3 RBC (4.6-6.2) M/mm3 Hgb (13.0-16.5) g/dL Hct (40-54) % MCV (80-94) fL MCH (27.0-32.0) pg MCHC (32-36) g/dL RDW Std Deviation (35.1-43.9) fl RDW Coeff of Earline (11.6-14.6) % Plt Count (150-450) K/mm3 MPV (6.2-12.0) fl Immature Gran % (Auto) (0.0-0.9) % Neut % (Auto) (47-70) % Lymph % (Auto) (19-41) % Hart % (Auto) (0-10) % Eos % (Auto) (0-5) % Baso % (Auto) (0-1) % Absolute Neuts (auto) (2.0-7.7) X10^3/uL Absolute Lymphs (auto) (0.83-4.51) X10^3/uL Nucleated RBC % (0-5) % Sodium (136-145) mmol/L Potassium (3.5-5.1) mmol/L Chloride (98-107) mmol/L Carbon Dioxide (21.0-32.0) mmol/L Anion Gap (5-15) BUN (7-18) mg/dL Creatinine (0.70-1.30) mg/dL Estim Creat Clear Calc ml/min Est GFR (MDRD) Af Amer (>60) mL/min Est GFR (MDRD) Non-Af (>60) mL/min BUN/Creatinine Ratio (10-20) RATIO Glucose (74-106) mg/dL Calcium (8.5-10.1) mg/dL POC Glucose 101 144 H 108 (70-110) mg/dL 05/17/19 05/17/19 05/16/19 Range/Units 16:53 06:45 17:04 WBC (4.4-11.0) K/mm3 RBC (4.6-6.2) M/mm3 Hgb (13.0-16.5) g/dL Hct (40-54) % MCV (80-94) fL MCH (27.0-32.0) pg MCHC (32-36) g/dL RDW Std Deviation (35.1-43.9) fl RDW Coeff of Earline (11.6-14.6) % Plt Count (150-450) K/mm3 MPV (6.2-12.0) fl Immature Gran % (Auto) (0.0-0.9) % Neut % (Auto) (47-70) % Lymph % (Auto) (19-41) % Hart % (Auto) (0-10) % Eos % (Auto) (0-5) % Baso % (Auto) (0-1) % Absolute Neuts (auto) (2.0-7.7) X10^3/uL Absolute Lymphs (auto) (0.83-4.51) X10^3/uL Nucleated RBC % (0-5) % Sodium (136-145) mmol/L Potassium (3.5-5.1) mmol/L Chloride (98-107) mmol/L Carbon Dioxide (21.0-32.0) mmol/L Anion Gap (5-15) BUN (7-18) mg/dL Creatinine (0.70-1.30) mg/dL Estim Creat Clear Calc ml/min Est GFR (MDRD) Af Amer (>60) mL/min Est GFR (MDRD) Non-Af (>60) mL/min BUN/Creatinine Ratio (10-20) RATIO Glucose (74-106) mg/dL Calcium (8.5-10.1) mg/dL POC Glucose 133 H 102 100 (70-110) mg/dL 05/16/19 05/15/19 05/15/19 Range/Units 06:16 17:00 06:08 WBC (4.4-11.0) K/mm3 RBC (4.6-6.2) M/mm3 Hgb (13.0-16.5) g/dL Hct (40-54) % MCV (80-94) fL MCH (27.0-32.0) pg MCHC (32-36) g/dL RDW Std Deviation (35.1-43.9) fl RDW Coeff of Earline (11.6-14.6) % Plt Count (150-450) K/mm3 MPV (6.2-12.0) fl Immature Gran % (Auto) (0.0-0.9) % Neut % (Auto) (47-70) % Lymph % (Auto) (19-41) % Hart % (Auto) (0-10) % Eos % (Auto) (0-5) % Baso % (Auto) (0-1) % Absolute Neuts (auto) (2.0-7.7) X10^3/uL Absolute Lymphs (auto) (0.83-4.51) X10^3/uL Nucleated RBC % (0-5) % Sodium 138 (136-145) mmol/L Potassium 3.9 (3.5-5.1) mmol/L Chloride 104 (98-107) mmol/L Carbon Dioxide 29.0 (21.0-32.0) mmol/L Anion Gap 5 (5-15) BUN 17 (7-18) mg/dL Creatinine 0.71 (0.70-1.30) mg/dL Estim Creat Clear Calc 37.11 ml/min Est GFR (MDRD) Af Amer 137 (>60) mL/min Est GFR (MDRD) Non-Af 113 (>60) mL/min BUN/Creatinine Ratio 23.8 H (10-20) RATIO Glucose 110 H (74-106) mg/dL Calcium 8.7 (8.5-10.1) mg/dL POC Glucose 115 H 101 (70-110) mg/dL 05/15/19 Range/Units 06:08 WBC 5.3 (4.4-11.0) K/mm3 RBC 3.65 L (4.6-6.2) M/mm3 Hgb 11.1 L (13.0-16.5) g/dL Hct 33.7 L (40-54) % MCV 92.3 (80-94) fL MCH 30.4 (27.0-32.0) pg MCHC 32.9 (32-36) g/dL RDW Std Deviation 42.4 (35.1-43.9) fl RDW Coeff of Earline 12.7 (11.6-14.6) % Plt Count 131 L (150-450) K/mm3 MPV 10.2 (6.2-12.0) fl Immature Gran % (Auto) 0.400 (0.0-0.9) % Neut % (Auto) 56.2 (47-70) % Lymph % (Auto) 32.4 (19-41) % Hart % (Auto) 7.3 (0-10) % Eos % (Auto) 3.0 (0-5) % Baso % (Auto) 0.7 (0-1) % Absolute Neuts (auto) 3.0 (2.0-7.7) X10^3/uL Absolute Lymphs (auto) 1.73 (0.83-4.51) X10^3/uL Nucleated RBC % 0 (0-5) % Sodium (136-145) mmol/L Potassium (3.5-5.1) mmol/L Chloride (98-107) mmol/L Carbon Dioxide (21.0-32.0) mmol/L Anion Gap (5-15) BUN (7-18) mg/dL Creatinine (0.70-1.30) mg/dL Estim Creat Clear Calc ml/min Est GFR (MDRD) Af Amer (>60) mL/min Est GFR (MDRD) Non-Af (>60) mL/min BUN/Creatinine Ratio (10-20) RATIO Glucose (74-106) mg/dL Calcium (8.5-10.1) mg/dL POC Glucose (70-110) mg/dL none Operations: None Procedures: None Summary of Care Provided: The patient is a 79-year-old male with a past medical history of vascular dementia, cancer of the tongue, obstructive sleep apnea, hyperlipidemia, previous CVA with Left hemiparesis (minimal), Cervical canal stenosis, urinary incontinence ( can not get there fast enough) and hypertension who had a fall at home on 05/11/2019 and sustained a minimally displaced R hip periprosthetic greater trochanteric fracture. The implants were stable. He was seen in consultation by Dr. Muñoz and he recommended 6 weeks of 50% partial weightbearing and no active abduction. He was transferred to the rehab floor at [facility] on 05/14/2019 for 3 hours of therapy daily to return him at or near his prior level of independence. BP was not adequately controlled and Lisinopril dose was increased from 10 mg to 20 mg daily. BS's were frequently low and Metformin 500 mg BID was discontinued. BS's are very well controlled, even on a regular diet. He was started on Sertraline during his stay in rehab and his mood has improved significantly. 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 He was transferred to TCU on 05/31/2019 for continued PT/OT prior to returning home. General: Alert, Cooperative Oral: Dry Mucosa...has been eating well Lungs: Clear to auscultation Cardiovascular: Regular rate, Regular Rhythm Abdomen: Bowel Sounds Present, Soft, Non Tender, Non-Distended Extremities: No edema Neurological: Cranial nerves II-XII grossly intact, Neuro grossly intact Psych/Mental Status: Normal Affect, Appropriate....much more upbeat than at admission to [facility]. This note was generated with Dragon dictation software. It may contain incorrect words, spelling, and punctuation that were not noted in checking the note before signing. Patient Problems: Active and Suspected Problems (Last Reviewed 02/01/18 @ 06:56 by Royer Maxwell MD) Depression (Acute) Normochromic normocytic anemia (Acute) Likely secondary to blood loss from recent hip fracture - Physical Exam Vitals/I&O's: Vital Signs Temp Pulse Resp BP Pulse Ox 98.0 F 60 18 126/66 H 94 05/31/19 07:00 05/31/19 07:00 05/31/19 07:00 05/31/19 07:00 05/31/19 07:00 Oxygen Delivery Method Room Air Weight: 214 lb 4.629 oz Body Mass Index (BMI) 11.5 Finger Stick Blood Glucose 140 Intake and Output for Last 24 Hours 05/29/19 05/30/19 05/31/19 23:59 23:59 23:59 Intake Total 720 / 720 1080 / 1080 240 / 240 Balance 720 / 720 1080 / 1080 240 / 240 Laboratory Results 05/30/19 17:20: POC Glucose 90 05/31/19 06:14: POC Glucose 101 Current Medications Acetaminophen (Tylenol) 1,000 mg PO Q8 [facility] Last Admin: 05/31/19 13:55 Dose: 1,000 mg Documented by: Amlodipine Besylate (Norvasc) 10 mg PO DAILY [facility] Last Admin: 05/31/19 08:13 Dose: 10 mg Documented by: Apixaban (Eliquis) 2.5 mg PO BID [facility] Last Admin: 05/31/19 08:13 Dose: 2.5 mg Documented by: Aspirin (Aspirin, Baby) 81 mg PO QHS [facility] Last Admin: 05/30/19 21:10 Dose: 81 mg Documented by: Bisacodyl (Dulcolax) 10 mg RECTAL .PRN X 1 PRN PRN Reason: Constipation Calamine/Phenol (Calmoseptine Ointment) 1 applic TOPICAL BID [facility]; Protocol Last Admin: 05/31/19 08:13 Dose: 1 applicatio Documented by: Famotidine (Pepcid) 20 mg PO DAILY [facility] Last Admin: 05/31/19 08:13 Dose: 20 mg Documented by: [facility] Last Admin: 05/31/19 08:12 Dose: 4 mg Documented by: Lisinopril (Zestril) 15 mg PO DAILY [facility] Last Admin: 05/31/19 08:13 Dose: 15 mg Documented by: Magnesium Hydroxide (Milk Of Magnesia) 30 ml PO .PRN X 1 PRN PRN Reason: Constipation Last Admin: 05/29/19 17:16 Dose: 30 ml Documented by: Multivitamins/Minerals (Multivitamin With Minerals) 1 tablet PO DAILY@0800 [facility] Last Admin: 05/31/19 08:12 Dose: 1 tablet Documented by: Naproxen (Naprosyn) 500 mg PO DAILY PRN PRN Reason: .MIGRAINE SYMPTOMS Nutritional Formula (Lactose Free) (Glucerna Shake) 120 ml PO 4X/DAY [facility] Last Admin: 05/31/19 13:57 Dose: 120 ml Documented by: Ondansetron HCl (Zofran) 8 mg PO Q8H PRN PRN PRN Reason: NAUSEA Last Admin: 05/22/19 13:00 Dose: 8 mg Documented by: Oxycodone HCl (Oxyir) 5 mg PO Q4H PRN PRN PRN Reason: Pain Score 1-10/10 Last Admin: 05/29/19 10:14 Dose: 5 mg Documented by: Rosuvastatin Calcium (Crestor) 10 mg PO MoFr@2200 [facility] Last Admin: 05/27/19 19:54 Dose: 10 mg Documented by: Senna/Docusate Sodium (Senokot-S, Leslye-Colace) 2 tablet PO BID [facility] Last Admin: 05/31/19 08:12 Dose: 2 tablet Documented by: Sertraline HCl (Zoloft) 50 mg PO DAILY [facility] Last Admin: 05/31/19 08:12 Dose: 50 mg Documented by: Vitamin E (Vitamin E) [facility] Last Admin: 05/31/19 08:12 Dose: 400 units Documented by: Home Medications: Medications to take at Discharge Aspirin [Aspirin, Baby] 81 mg PO QHS 06/12/17 Multivit-Min/Folic Acid/Biotin [Hair, Skin and Nails Caplet] 1 each PO DAILY 07/30/17 [place]imhall-3/Dha/Epa/Fish Oil [Fish Oil Brimhall-3 EC 1,200 mg] 1 each PO DAILY 07/30/17 Vitamin E (Dl,Tocopheryl Acet) [Vitamin E] 400 units PO DAILY 07/30/17 Lisinopril [Prinivil] 10 mg PO DAILY 02/01/18 Amlodipine Besylate [Norvasc] 10 mg PO DAILY 05/11/19 Rosuvastatin Calcium [Crestor] 10 mg PO MOFR 05/11/19 Sumatriptan Succ/Naproxen Sod [Treximet 85-500 mg Tablet] 1 ea PO DAILY PRN 05/11/19 Galantamine Hbr [Razadyne] 4 mg PO BIDCM 05/14/19 Oxycodone [Oxyir] 5 mg PO Q4H PRN PRN 05/14/19 Acetaminophen [Tylenol] 1,000 mg PO Q8 tab 05/31/19 Apixaban [Eliquis] 2.5 mg PO BID tab 05/31/19 Famotidine [Pepcid] 20 mg PO DAILY tab 05/31/19 Lisinopril [Zestril] 20 mg PO DAILY #1 tab 05/31/19 Magnesium Hydroxide [Milk Of Magnesia] 30 ml PO .PRN X 1 PRN udc 05/31/19 Menthol/Lanolin/Calamine/Znox [Calmoseptine Ointment] 1 applic TOPICAL BID tube 05/31/19 Naproxen [Naprosyn] 500 mg PO DAILY PRN tab 05/31/19 Senna/Docusate Sodium [Senokot-S] 2 tab PO BID tab 05/31/19 Sertraline HCl [Zoloft] 50 mg PO DAILY tab 05/31/19 Following Prescrptions Were Given to Patient: Lisinopril [Zestril] 20 mg PO DAILY #1 tab Primary Care Physician: Gildardo Catherine MD [Primary Care Provider] - Please follow up with your Primary Care Physician in: Following discharge from TCU Please Follow Up With: Davy Myers MD When: in 4 weeks Minutes spent on discharge:: 35 Patient Condition:: Good Medical Necessity - Tobacco Use Smoking Status: Never smoker Tobacco Use: Non-smoker Meaningful Use Info Meaningful Use Diagnoses (Choose all that apply): None applicable Code Visit Inpatient E&M: 98829 Disch Hosp
--- NOTE | 2019-05-31 15:00 | NURSING ---
TCU report given and patient sent down to unit. aware.
== END 2019-05-31 15:00 | disposition skilled nursing facility (03) | DRG 560 ==
PROVIDERS: Family Medicine; Internal Medicine; Admitting Provider Psychiatry & Neurology Neurology; Family Provider Family Medicine; PCP Family Medicine; Referring Provider Psychiatry & Neurology Neurology; Visit Provider Internal Medicine
DX: S72.111D Displaced fracture of greater trochanter of right femur, subsequent encounter for closed fracture with routine healing (principal); I69.354 Hemiplegia and hemiparesis following cerebral infarction affecting left non-dominant side; D62 Acute posthemorrhagic anemia; M97.01XD Periprosthetic fracture around internal prosthetic right hip joint, subsequent encounter; W19.XXXD Unspecified fall, subsequent encounter; Z85.810 Personal history of malignant neoplasm of tongue; M48.02 Spinal stenosis, cervical region; I10 Essential (primary) hypertension; G47.33 Obstructive sleep apnea (adult) (pediatric); F01.50 Vascular dementia, unspecified severity, without behavioral disturbance, psychotic disturbance, mood disturbance, and anxiety; E78.5 Hyperlipidemia, unspecified; R32 Unspecified urinary incontinence; E11.9 Type 2 diabetes mellitus without complications; G43.909 Migraine, unspecified, not intractable, without status migrainosus; F32.9 Major depressive disorder, single episode, unspecified
CPT/HCPCS: 36415; 73502; 80048; 82962; 85014; 85018; 85025; 85027; 92507; 92523; 92610; 97110; 97116; 97162; 97166; 97530; 97535; 97542; 97802; 97803; 99251; G0463

== ENCOUNTER 2019-05-31 15:37 | Inpatient (IN) | payer MEDICARE, BC, SELFPAY ==
[2019-05-31 13:18] VITALS: BMI 11.5
[2019-05-31 15:54] VITALS: BP 114/60; PULSE 73; RESP 16; TEMP 36.8; O2SAT 96; BMI 25.9
--- NOTE | 2019-05-31 16:02 | HP.PCM_ITS ---
Problem List (1) Vascular dementia Status: Chronic (2) Cervical spinal stenosis Status: Chronic (3) Left hemiparesis Status: Chronic (4) Tongue cancer Status: Chronic (5) Obstructive sleep apnea Status: Chronic (6) Hyperlipidemia Status: Chronic (7) Overactive bladder Status: Chronic (8) Migraine Status: Chronic (9) Closed right hip fracture Status: Acute (10) Debility Status: Acute (11) Diabetes mellitus type 2 in nonobese Status: Chronic (12) Stroke Status: Chronic (13) HTN (hypertension) Status: Chronic History of Present Illness Date of Admission: 05/31/19 Chief Complaint: Here for rehabilitation, strengthening, prior to discharge home with . The patient is a 79 year old Male with below past medical history presented to [facility] Emergency Department 05/11/2019 with fall, right hip fracture. Orthopedics recommended 6 weeks of 50% partial weight bearing, no active abduction. Pain well controlled. 05/14/2019 Admit to Inpatient Rehabilitation Unit for therapy. 05/20/2019 Sertraline started for depression. 05/20/2019 X-ray pelvis, right hip showed right hip arthroplasty with mildly displaced fracture of right greater trochanter. 05/23/2019 Tylenol 1gram every 8 hours effective for pain control, along with oxycodone. Lovenox, KATIE support hose for DVT prophylaxis. Monitor for pneumonia. 05/26/2019 Mood improved on Sertraline. 05/27/2019 Sugars well controlled, stop Metformin. 05/28/2019 Lisinopril increased to 15MG daily for improved blood pressure control. 05/31/2019 Admit to TCU with debility, here for rehabilitation, strengthening, prior to discharge home with . Past Medical History Past Medical History (Chronic Problems): Chronic Problems (Last Reviewed 02/01/18 @ 06:56 by Royer Maxwell MD) Vascular dementia (Chronic) Cervical spinal stenosis (Chronic) Left hemiparesis (Chronic) Tongue cancer (Chronic) Obstructive sleep apnea (Chronic) Hyperlipidemia (Chronic) Overactive bladder (Chronic) Migraine (Chronic) Diabetes mellitus type 2 in nonobese (Chronic) Urinary incontinence (Chronic) Cerebrovascular disease (Chronic) Stroke (Chronic) HTN (hypertension) (Chronic) Medical History: Medical History (Last Reviewed 02/01/18 @ 06:56 by Royer Maxwell MD) Cerebrovascular disease (Chronic) I67.9 Allergies chocolate flavor Adverse Reaction (Unknown, Verified 05/11/19 17:38) Other headache Pork/Porcine Containing Products Adverse Reaction (Unknown, Verified 05/11/19 17:38) Other headache atorvastatin [From Lipitor] Adverse Reaction (Verified 05/11/19 17:38) Other stomach issues oxybutynin Adverse Reaction (Verified 05/11/19 13:09) Other Home Medications: Ambulatory Orders Medication Instructions Recorded Aspirin [Aspirin, Baby] 81 mg PO QHS 06/12/17 Multivit-Min/Folic Acid/Biotin 1 each PO DAILY 07/30/17 [Hair, Skin and Nails Caplet] [place]-3/Dha/Epa/Fish Oil [Fish Oil 1 each PO DAILY 07/30/17 [place]-3 EC 1,200 mg] Vitamin E (Dl,Tocopheryl Acet) 400 units PO DAILY 07/30/17 [Vitamin E] Lisinopril [Prinivil] 5 mg PO DAILY 02/01/18 Amlodipine Besylate [Norvasc] 10 mg PO DAILY 05/11/19 Rosuvastatin Calcium [Crestor] 10 mg PO MOFR 05/11/19 Sumatriptan Succ/Naproxen Sod 1 ea PO DAILY PRN 05/11/19 [Treximet 85-500 mg Tablet] Galantamine Hbr [Razadyne] 4 mg PO BIDCM 05/14/19 Oxycodone [Oxyir] 5 mg PO Q4H PRN PRN 05/14/19 Acetaminophen [Tylenol] 1,000 mg PO Q8 05/31/19 Apixaban [Eliquis] 2.5 mg PO BID 05/31/19 Famotidine [Pepcid] 20 mg PO DAILY 05/31/19 Lisinopril [Zestril] 10 mg PO DAILY 05/31/19 Magnesium Hydroxide [Milk Of 30 ml PO DAILY 05/31/19 Magnesia] Menthol/Lanolin/Calamine/Znox 1 applic TOPICAL BID 05/31/19 [Calmoseptine Ointment] Naproxen [Naprosyn] 500 mg PO DAILY PRN tab 05/31/19 Senna/Docusate Sodium [Senokot-S] 2 tab PO BID 05/31/19 Sertraline HCl [Zoloft] 50 mg PO DAILY 05/31/19 Surgical History: total hip arthroplasty - Right hip, hemiarthroplasty., - - Tongue resection. Psychiatric History: No pertinent psych hx Lives: Spouse/ Significant Other Smoking Status: Never smoker Tobacco Use: Non-smoker Alcohol: None Drugs: None - *Family History Paternal History Items: Stroke Maternal History Items: No pertinent history Review of Systems Constitutional: Denies: Chills, Fever, Weight Change HEENT: Denies: Head Aches, Sinus Congestion, Sinus Drainage Cardiovascular: Denies: Chest Pain, Palpitations Respiratory: Denies: Cough, Shortness of breath at rest, Sputum production Gastrointestinal: Denies: Abdominal Pain, Nausea, Vomiting Genitourinary: Denies: Dysuria Musculoskeletal: Denies: Joint Pain, Joint Tenderness Skin: Denies: Rash, Wounds Neurological: Denies: Numbness, Tingling, Focal weakness Psychiatric: Denies: Anxiety, Depression, Homicidal Ideations, Suicidal Ideations Hematologic/ Lymphatic: Denies: Easy Bruising, Easy Bleeding VTE Information - Inpt Only VTE Present on Admission: No VTE Mechan Device Prophylaxis: Knee High KATIE Hose VTE Pharm Prophylaxis ordered?: Yes - Physical Exam Vitals/I&O's: Body Mass Index (BMI) 11.5 Finger Stick Blood Glucose 140 General: Alert, Oriented x3, Cooperative HEENT: Atraumatic, PERRLA, EOMI, Normocephalic Neck: Supple, No JVD, Negative Carotid Bruits Lungs: Clear to auscultation, Normal air movement Cardiovascular: Regular rate, No murmurs Abdomen: Bowel Sounds Present, Soft, Non Tender Extremities: No edema, Capillary Refill Less than 3 Seconds Skin: No rashes, No breakdown Musculoskeletal: No Tenderness to Palpation of Joints or Extremities Neurological: Cranial nerves II-XII grossly intact Psych/Mental Status: Normal Affect, Appropriate Assessment/Plan All Active Problems (Last Reviewed 02/01/18 @ 06:56 by Royer Maxwell MD) Closed right hip fracture (Acute) Debility (Acute) Depression (Acute) Normochromic normocytic anemia (Acute) Generalized weakness (Acute) 79 year old male with below past medical history hospitalized for right hip fracture, treated conservatively, admitted to Inpatient Rehabilitation Unit, complicated by depression, admitted to TCU with debility, here for rehabilitation, strengthening, prior to discharge home with . * Debility - PT/OT. * Cognition - ST. * Pain - Tylenol 1000MG Q8H, Oxycodone 5MG Q4H PRN. * Bowel - Miralax 17GM daily, Senna/colace 1 tablet BID, Dulcolax 10MG daily PRN. * Adult immunization - Administer Prevnar 13, Pneumovax 23, Fluzone as necessary. * DVT prophylaxis - Eliquis 2.5MG BID thru 06/15/2019. * Hypertension - Lisinopril 15MG daily, Amlodipine 10MG daily. * Stroke - Resumed Aspirin 81MG 06/16/2019. * GERD - Famotidine 20MG daily. * Vascular dementia - Galantamine 4MG BID. * Nutrition - MVI daily. * Migraine - Naproxen 500MG daily PRN. * Hyperlipidemia - Rosuvastatin 10MG QHS, Fish Oil 1 tablet daily. * Depression - Sertraline 50MG daily. * Vitamin E deficiency - Vitamin E 400IU daily.
[2019-05-31 16:03] VITALS: BP 114/60; PULSE 73; RESP 16; TEMP 36.8; O2SAT 96
[2019-05-31] MEDS: APIXABAN 2.5 MG TABLET PO (17:54)
[2019-05-31] MEDS: Senna/Docusate Sodium 1 Tablet 2 TABLET PO (17:54)
[2019-05-31] MEDS: Galantamine Hydrobromide 4 MG Tablet PO (17:54)
[2019-05-31] MEDS: Menthol/Lanolin/Calamine/Znox 113 GM Tube 1 APPLIC TOPICAL (18:01)
[2019-05-31] MEDS: Acetaminophen 500 MG Tablet 1000 MG PO (20:51)
[2019-05-31] MEDS: Glucerna Shake 120 ML LIQUID PO (20:54)
[2019-05-31 20:55] VITALS: RESP 16
[2019-06-01] MEDS: Glucerna Shake 120 ML LIQUID PO ×4 (05:24→21:59)
[2019-06-01] MEDS: Acetaminophen 500 MG Tablet 1000 MG PO ×3 (05:24→21:44)
[2019-06-01] MEDS: Lisinopril 5 MG Tablet 15 MG PO (05:25)
[2019-06-01] MEDS: amLODIPine 10 MG Tablet PO (05:25)
[2019-06-01] MEDS: Famotidine 20 MG Tablet PO (05:25)
[2019-06-01] MEDS: Senna/Docusate Sodium 1 Tablet 2 TABLET PO ×2 (05:26→17:32)
[2019-06-01] MEDS: APIXABAN 2.5 MG TABLET PO ×2 (05:27→17:32)
[2019-06-01] MEDS: Sertraline 50 MG Tablet PO (05:27)
[2019-06-01] MEDS: Menthol/Lanolin/Calamine/Znox 113 GM Tube 1 APPLIC TOPICAL ×2 (05:27→17:33)
[2019-06-01] MEDS: Polyethylene Glycol 3350 17 GM PACKET PO (05:27)
[2019-06-01] MEDS: Nystatin Powder 15gm Bottle 1 APPLIC TOPICAL ×2 (05:35→21:44)
[2019-06-01 06:55] LABS: Bedside Glucose 117 mg/dL (70-110)
[2019-06-01] MEDS: Vitamin E 400 UNITS Capsule PO (08:09)
[2019-06-01] MEDS: Galantamine Hydrobromide 4 MG Tablet PO ×2 (08:09→17:26)
[2019-06-01 08:36] LABS: Absolute Lymphocyte Count 1.48 X10^3/uL (0.83-4.51); Absolute Neutrophil Count 2.8 X10^3/uL (2.0-7.7); Basophil# 0.05 X10^3/uL; Eosinophil# 0.09 X10^3/uL; Eosinophils% 1.9 % (0-5); Hematocrit 38.9 % (40-54); Hemoglobin 12.8 g/dL (13.0-16.5); Lymphocyte # 1.48 X10^3/ul (4.0); Mean Corp Hgb Conc 32.9 g/dL (32-36); Mean Corpuscular Volume 94.2 fL (80-94); Mean Platelet Vol. 10.1 fl (6.2-12.0); Monocyte# 0.37 X10^3/uL; Monocyte% 7.8 % (0-10); NRBC Flagged by Analyzer 0 % (0-5); Neutrophil # 2.76 X10^3/uL (2.7-7.7); Neutrophil % 57.9 % (47-70); Platelet Count 180 K/mm3 (150-450); RBC Distribution Width SD 48.6 fl (35.1-43.9); Red Blood Count 4.13 M/mm3 (4.6-6.2); White Blood Count 4.8 K/mm3 (4.4-11.0)
[2019-06-01 08:46] LABS: Anion Gap 5 (5-15); BUN 22 mg/dL (7-18); BUN/Creat Ratio 25.5 RATIO (10-20); Calcium,Total 8.9 mg/dL (8.5-10.1); Chloride 105 mmol/L (98-107); Creatinine, Serum 0.86 mg/dL (0.70-1.30); EST Glomerular Filtration Rate 91 mL/min (>60); Est Glom Filt Rate - Afr Amer 110 mL/min (>60); Estimated Creatinine Clearance 86.91 ml/min; Glucose 163 mg/dL (74-106); Potassium 4.3 mmol/L (3.5-5.1); Sodium Level 138 mmol/L (136-145)
[2019-06-01] MEDS: Tuberculin,Purif.prot.deriv. 50 TU/ML Vial 5 ML ID (10:39)
--- NOTE | 2019-06-01 12:57 | NURSING ---
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
[2019-06-01 15:59] VITALS: BP 138/69; PULSE 59; RESP 16; TEMP 36.7; O2SAT 94
[2019-06-01 22:50] VITALS: BP 145/59; PULSE 69; RESP 16; TEMP 37.1; O2SAT 96
--- NOTE | 2019-06-02 | NURSING ---
Pts CPAP applied at hs, rang and wanted it turned off, refusing at this time.
[2019-06-02] MEDS: amLODIPine 10 MG Tablet PO (05:35)
[2019-06-02] MEDS: APIXABAN 2.5 MG TABLET PO ×2 (05:35→17:33)
[2019-06-02] MEDS: Famotidine 20 MG Tablet PO (05:35)
[2019-06-02] MEDS: Acetaminophen 500 MG Tablet 1000 MG PO ×3 (05:35→21:36)
[2019-06-02] MEDS: Sertraline 50 MG Tablet PO (05:35)
[2019-06-02] MEDS: Lisinopril 5 MG Tablet 15 MG PO (05:44)
[2019-06-02] MEDS: Menthol/Lanolin/Calamine/Znox 113 GM Tube 1 APPLIC TOPICAL ×2 (05:45→17:32)
[2019-06-02] MEDS: Nystatin Powder 15gm Bottle 1 APPLIC TOPICAL ×2 (05:45→21:37)
[2019-06-02] MEDS: Glucerna Shake 120 ML LIQUID PO ×4 (05:47→21:46)
[2019-06-02 05:49] VITALS: BP 147/79; PULSE 62
[2019-06-02 06:36] LABS: Bedside Glucose 123 mg/dL (70-110)
[2019-06-02] MEDS: Galantamine Hydrobromide 4 MG Tablet PO ×2 (07:47→17:32)
[2019-06-02] MEDS: Vitamin E 400 UNITS Capsule PO (07:48)
[2019-06-02 10:00] VITALS: RESP 16; O2SAT 97
--- NOTE | 2019-06-02 12:19 | NURSING ---
Pt in bed, pleasant and cooperative
[2019-06-02 16:00] VITALS: BP 110/68; PULSE 67; RESP 16; TEMP 36.8; O2SAT 96
[2019-06-02] MEDS: Senna/Docusate Sodium 1 Tablet 2 TABLET PO (17:33)
[2019-06-02] MEDS: oxyCODONE 5 MG Tablet PO (21:47)
[2019-06-03] MEDS: Famotidine 20 MG Tablet PO (06:24)
[2019-06-03] MEDS: Lisinopril 5 MG Tablet 15 MG PO (06:24)
[2019-06-03] MEDS: Acetaminophen 500 MG Tablet 1000 MG PO ×3 (06:24→21:11)
[2019-06-03] MEDS: Glucerna Shake 120 ML LIQUID PO ×4 (06:25→21:10)
[2019-06-03] MEDS: APIXABAN 2.5 MG TABLET PO ×2 (06:25→17:23)
[2019-06-03] MEDS: Sertraline 50 MG Tablet PO (06:25)
[2019-06-03] MEDS: amLODIPine 10 MG Tablet PO (06:25)
[2019-06-03] MEDS: Menthol/Lanolin/Calamine/Znox 113 GM Tube 1 APPLIC TOPICAL ×2 (06:26→17:25)
[2019-06-03] MEDS: Nystatin Powder 15gm Bottle 1 APPLIC TOPICAL ×2 (06:27→21:09)
[2019-06-03 06:31] LABS: Bedside Glucose 104 mg/dL (70-110)
[2019-06-03] MEDS: Vitamin E 400 UNITS Capsule PO (08:40)
[2019-06-03] MEDS: Galantamine Hydrobromide 4 MG Tablet PO ×2 (09:56→17:24)
[2019-06-03 10:00] VITALS: RESP 16
[2019-06-03] MEDS: oxyCODONE 5 MG Tablet PO (11:09)
--- NOTE | 2019-06-03 15:00 | PCM.PN.RX ---
<Maria Ines Tan - Last Filed: 06/03/19 15:00> Progress Note - Pharmacy Subjective: [] Objective: Allergies chocolate flavor Adverse Reaction (Unknown, Verified 05/11/19 17:38) Other headache Pork/Porcine Containing Products Adverse Reaction (Unknown, Verified 05/11/19 17:38) Other headache atorvastatin [From Lipitor] Adverse Reaction (Verified 05/11/19 17:38) Other stomach issues oxybutynin Adverse Reaction (Verified 05/11/19 13:09) Other Current Medications Generic Name Dose Route Start Last Admin Trade Name Freq PRN Reason Stop Dose Admin Acetaminophen 1,000 mg 05/31/19 22:00 06/03/19 13:25 Tylenol PO 1,000 mg Q8 MIROSLAVA Administration Amlodipine Besylate 10 mg 06/01/19 06:00 06/03/19 06:25 Norvasc PO 10 mg DAILY MIROSLAVA Administration Apixaban 2.5 mg 05/31/19 18:00 06/03/19 06:25 Eliquis PO 06/15/19 23:59 2.5 mg BID MIROSLAVA Administration Aspirin 81 mg 06/16/19 22:00 Aspirin, Baby PO QHS MIROSLAVA Bisacodyl 10 mg 05/31/19 16:51 Dulcolax PO DAILY PRN Constipation Calamine/Phenol 1 applic 05/31/19 18:00 06/03/19 06:26 Calmoseptine Ointment TOPICAL 1 applicatio BID MIROSLAVA Administration Protocol Emollient Ointment 1 applic 06/01/19 06:00 06/03/19 06:28 Eucerin Intensive Repair TOPICAL 1 applicatio 0600,2200 [facility] Administration Protocol Famotidine 20 mg 06/01/19 06:00 06/03/19 06:24 Pepcid PO 20 mg DAILY MIROSLAVA Administration Galantamine Hydrobromide 4 mg 05/31/19 17:00 06/03/19 09:56 Razadyne PO 4 mg BIDCM MIROSLAVA Administration Lisinopril 15 mg 06/01/19 06:00 06/03/19 06:24 Zestril PO 15 mg DAILY MIROSLAVA Administration Naproxen 500 mg 05/31/19 16:19 Naprosyn PO DAILY PRN .MIGRAINE SYMPTOMS Nutritional Formula (Lactose Free) 120 ml 05/31/19 22:00 12/09/19 11:09 Glucerna Shake PO 120 ml 4X/DAY MIROSLAVA Administration Nystatin 1 applic 06/01/19 06:00 06/03/19 06:27 Mycostatin Powder TOPICAL 1 applicatio 0600,2200 MIROSLAVA Administration Protocol Oxycodone HCl 5 mg 05/31/19 16:19 06/03/19 11:09 Oxyir PO 5 mg Q4H PRN PRN Administration Pain Polyethylene Glycol 17 gm 06/01/19 06:00 06/03/19 06:25 Miralax PO Not Given DAILY MIROSLAVA Rosuvastatin Calcium 10 mg 05/31/19 22:00 05/31/19 20:51 Crestor PO 10 mg MoFr MIROSLAVA Administration Senna/Docusate Sodium 2 tablet 05/31/19 18:00 06/03/19 06:27 Senokot-S, Leslye-Colace PO Not Given BID MIROSLAVA Sertraline HCl 50 mg 06/01/19 06:00 06/03/19 06:25 Zoloft PO 50 mg DAILY MIROSLAVA Administration Tuberculin PPD 5 tu 06/08/19 10:00 Tubersol, Aplisol, Ppd ID 06/08/19 10:01 X1 ONE Vitamin E 400 units 06/01/19 08:00 06/03/19 08:40 Vitamin E PO 400 units DAILYCM MIROSLAVA Administration Vital Signs Temp Pulse Resp BP Pulse Ox 98.2 F 67 16 110/68 96 06/02/19 16:00 06/02/19 16:00 06/02/19 16:00 06/02/19 16:00 06/02/19 16:00 Oxygen Delivery Method Room Air Weight: 96.672 kg Body Mass Index (BMI) 25.9 Finger Stick Blood Glucose 140 Sodium 138 mmol/L (136-145) 06/01/19 08:08 Potassium 4.3 mmol/L (3.5-5.1) 06/01/19 08:08 Chloride 105 mmol/L (98-107) 06/01/19 08:08 Carbon Dioxide 28.0 mmol/L (21.0-32.0) 06/01/19 08:08 Anion Gap 5 (5-15) 06/01/19 08:08 BUN 22 mg/dL (7-18) H 06/01/19 08:08 Creatinine 0.86 mg/dL (0.70-1.30) 06/01/19 08:08 Est GFR (MDRD) Af Amer 110 mL/min (>60) 06/01/19 08:08 Est GFR (MDRD) Non-Af 91 mL/min (>60) 06/01/19 08:08 BUN/Creatinine Ratio 25.5 RATIO (10-20) H 06/01/19 08:08 Glucose 163 mg/dL (74-106) H 06/01/19 08:08 Assessment/Plan: 1. Pain: acetaminophen 1000mg PO Q8H and oxycodone 5mg PO Q4H PRN pain (-04/04). Please continue to monitor for increased pain and PRN usage. 2. DVT prophylaxis: apixaban 2.5mg PO BID thru 06/15/19. Please continue to monitor renal function, platelets and for S/S of bleeding or DVT. 3. Stroke: resume aspirin 81mg PO QHS starting 06/16/19. Once started, please continue to monitor for S/S of bleeding. 4. Hypertension: lisinopril 15mg PO daily and amlodipine 10mg PO daily. Please continue to monitor BP, renal function, potassium and edema. 5. GERD: famotidine 20mg PO daily. Please continue to monitor for S/S of GERD. 6. Vascular dementia: galantamine hydrobromide 4mg PO BIDCM. This drug is on the BEERS list. Please continue to monitor for syncope and bradycardia. 7. Hyperlipidemia: rosuvastatin 10mg PO MoFr. Lipid panel and LFTs WNL. Please continue to monitor for muscle pain. 8. Migraine: naproxen 500mg PO daily PRN migraine symptoms. Please continue to monitor for migraine symptoms and PRN usage. 9. Vitamin E deficiency: vitamin E 400units PO DAILYCM. Please continue to monitor. Psychotropic Medications: 1. Depression: sertraline 50mg PO daily. GDR not appropriate. Patient was started on sertraline 05/20/19. Unnecessary Medications: None *Bowel Regimen: Miralax 17gm PO daily, senna/docusate 2T PO BID, bisacodyl 10mg PO daily PRN constipation. Patient has refused 2/3 doses of Miralax. Please consider changing to PRN. Please consider changing senna/docusate to scheduled as well if patient continues to refuse doses. Thanks. Please continue to monitor for constipation and PRN usage. Date of Note:: 06/03/19 - Provider Comments Provider responsibility: Provider responsible to enter orders to implement recommendations <Garett Dunlap Chi - Last Filed: 06/03/19 17:06> Progress Note - Pharmacy Subjective: [] Objective: Allergies chocolate flavor Adverse Reaction (Unknown, Verified 05/11/19 17:38) Other headache Pork/Porcine Containing Products Adverse Reaction (Unknown, Verified 05/11/19 17:38) Other headache atorvastatin [From Lipitor] Adverse Reaction (Verified 05/11/19 17:38) Other stomach issues oxybutynin Adverse Reaction (Verified 05/11/19 13:09) Other Current Medications Generic Name Dose Route Start Last Admin Trade Name Freq PRN Reason Stop Dose Admin Acetaminophen 1,000 mg 05/31/19 22:00 06/03/19 13:25 Tylenol PO 1,000 mg Q8 MIROSLAVA Administration Amlodipine Besylate 10 mg 06/01/19 06:00 06/03/19 06:25 Norvasc PO 10 mg DAILY MIROSLAVA Administration Apixaban 2.5 mg 05/31/19 18:00 06/03/19 06:25 Eliquis PO 06/15/19 23:59 2.5 mg BID MIROSLAVA Administration Aspirin 81 mg 06/16/19 22:00 Aspirin, Baby PO QHS [facility] Bisacodyl 10 mg 05/31/19 16:51 Dulcolax PO DAILY PRN Constipation Calamine/Phenol 1 applic 05/31/19 18:00 06/03/19 06:26 Calmoseptine Ointment TOPICAL 1 applicatio BID MIROSLAVA Administration Protocol Emollient Ointment 1 applic 06/01/19 06:00 06/03/19 06:28 Eucerin Intensive Repair TOPICAL 1 applicatio 0600,2200 [facility] Administration Protocol Famotidine 20 mg 06/01/19 06:00 06/03/19 06:24 Pepcid PO 20 mg DAILY MIROSLAVA Administration Galantamine Hydrobromide 4 mg 05/31/19 17:00 06/03/19 09:56 Razadyne PO 4 mg BIDCM MIROSLAVA Administration Lisinopril 15 mg 06/01/19 06:00 06/03/19 06:24 Zestril PO 15 mg DAILY MIROSLAVA Administration Naproxen 500 mg 05/31/19 16:19 Naprosyn PO DAILY PRN .MIGRAINE SYMPTOMS Nutritional Formula (Lactose Free) 120 ml 05/31/19 22:00 06/03/19 11:09 Glucerna Shake PO 120 ml 4X/DAY MIROSLAVA Administration Nystatin 1 applic 06/01/19 06:00 06/03/19 06:27 Mycostatin Powder TOPICAL 1 applicatio 0600,2200 MIROSLAVA Administration Protocol Oxycodone HCl 5 mg 05/31/19 16:19 06/03/19 11:09 Oxyir PO 5 mg Q4H PRN PRN Administration Pain Polyethylene Glycol 17 gm 06/01/19 06:00 06/03/19 06:25 Miralax PO Not Given DAILY MIROSLAVA Rosuvastatin Calcium 10 mg 05/31/19 22:00 05/31/19 20:51 Crestor PO 10 mg MoFr MIROSLAVA Administration Senna/Docusate Sodium 2 tablet 05/31/19 18:00 06/03/19 06:27 Senokot-S, Leslye-Colace PO Not Given BID MIROSLAVA Sertraline HCl 50 mg 06/01/19 06:00 06/03/19 06:25 Zoloft PO 50 mg DAILY MIROSLAVA Administration Tuberculin PPD 5 tu 06/08/19 10:00 Tubersol, Aplisol, Ppd ID 06/08/19 10:01 X1 ONE Vitamin E 400 units 06/01/19 08:00 06/03/19 08:40 Vitamin E PO 400 units DAILYCM MIROSLAVA Administration Vital Signs Temp Pulse Resp BP Pulse Ox 98 F 58 L 16 113/68 96 06/03/19 15:53 06/03/19 15:53 06/03/19 15:53 06/03/19 15:53 06/03/19 15:53 Oxygen Delivery Method Room Air Weight: 96.672 kg Body Mass Index (BMI) 25.9 Finger Stick Blood Glucose 140 Sodium 138 mmol/L (136-145) 06/01/19 08:08 Potassium 4.3 mmol/L (3.5-5.1) 06/01/19 08:08 Chloride 105 mmol/L (98-107) 06/01/19 08:08 Carbon Dioxide 28.0 mmol/L (21.0-32.0) 06/01/19 08:08 Anion Gap 5 (5-15) 06/01/19 08:08 BUN 22 mg/dL (7-18) H 06/01/19 08:08 Creatinine 0.86 mg/dL (0.70-1.30) 06/01/19 08:08 Est GFR (MDRD) Af Amer 110 mL/min (>60) 06/01/19 08:08 Est GFR (MDRD) Non-Af 91 mL/min (>60) 06/01/19 08:08 BUN/Creatinine Ratio 25.5 RATIO (10-20) H 06/01/19 08:08 Glucose 163 mg/dL (74-106) H 06/01/19 08:08 Assessment/Plan: Psychotropic Medications: Unnecessary Medications: Bowel Regimen: - Provider Comments Provider responsibility: Provider responsible to enter orders to implement recommendations Provider Comments to Recommendations by Pharmacy: Agree
[2019-06-03 15:53] VITALS: BP 113/68; PULSE 58; RESP 16; TEMP 36.6; O2SAT 96
--- NOTE | 2019-06-03 22:22 | PCA ---
This purchasing contracting clerk offered a shower to patient, and patient refused stating he was told therapy was waking him up early in the morning to help get him cleaned up. patient received a bed bath.
[2019-06-04] MEDS: Famotidine 20 MG Tablet PO (05:58)
[2019-06-04] MEDS: Glucerna Shake 120 ML LIQUID PO ×4 (05:58→21:05)
[2019-06-04] MEDS: Senna/Docusate Sodium 1 Tablet 2 TABLET PO ×2 (05:59→17:31)
[2019-06-04] MEDS: APIXABAN 2.5 MG TABLET PO ×2 (05:59→17:31)
[2019-06-04] MEDS: Sertraline 50 MG Tablet PO (05:59)
[2019-06-04] MEDS: Lisinopril 5 MG Tablet 15 MG PO (05:59)
[2019-06-04] MEDS: Acetaminophen 500 MG Tablet 1000 MG PO ×3 (05:59→21:05)
[2019-06-04] MEDS: amLODIPine 10 MG Tablet PO (05:59)
[2019-06-04] MEDS: Polyethylene Glycol 3350 17 GM PACKET PO (06:00)
[2019-06-04] MEDS: Menthol/Lanolin/Calamine/Znox 113 GM Tube 1 APPLIC TOPICAL ×2 (06:06→17:38)
[2019-06-04] MEDS: Nystatin Powder 15gm Bottle 1 APPLIC TOPICAL ×2 (06:06→21:06)
[2019-06-04 06:26] LABS: Bedside Glucose 109 mg/dL (70-110)
[2019-06-04] MEDS: Vitamin E 400 UNITS Capsule PO (07:54)
[2019-06-04] MEDS: Galantamine Hydrobromide 4 MG Tablet PO ×2 (07:54→17:31)
[2019-06-04] MEDS: oxyCODONE 5 MG Tablet PO ×2 (07:54→14:45)
[2019-06-04 10:35] VITALS: PULSE 57; RESP 18; O2SAT 98
[2019-06-04 15:44] VITALS: BP 118/64; PULSE 57; RESP 18; TEMP 36.8; O2SAT 97
[2019-06-05] MEDS: Polyethylene Glycol 3350 17 GM PACKET PO (05:35)
[2019-06-05] MEDS: Lisinopril 5 MG Tablet 15 MG PO (05:39)
[2019-06-05] MEDS: Glucerna Shake 120 ML LIQUID PO ×4 (05:39→21:02)
[2019-06-05] MEDS: Acetaminophen 500 MG Tablet 1000 MG PO ×3 (05:39→21:02)
[2019-06-05] MEDS: APIXABAN 2.5 MG TABLET PO ×2 (05:39→16:34)
[2019-06-05] MEDS: amLODIPine 10 MG Tablet PO (05:39)
[2019-06-05] MEDS: Menthol/Lanolin/Calamine/Znox 113 GM Tube 1 APPLIC TOPICAL ×2 (05:39→16:34)
[2019-06-05] MEDS: Bisacodyl 5 MG Tablet 10 MG PO (05:39)
[2019-06-05] MEDS: Senna/Docusate Sodium 1 Tablet 2 TABLET PO ×2 (05:39→16:33)
[2019-06-05] MEDS: Famotidine 20 MG Tablet PO (05:39)
[2019-06-05] MEDS: Nystatin Powder 15gm Bottle 1 APPLIC TOPICAL ×2 (05:42→21:03)
[2019-06-05] MEDS: Sertraline 50 MG Tablet PO (05:44)
[2019-06-05 06:40] LABS: Bedside Glucose 125 mg/dL (70-110)
[2019-06-05] MEDS: Galantamine Hydrobromide 4 MG Tablet PO ×2 (07:54→16:33)
[2019-06-05] MEDS: Vitamin E 400 UNITS Capsule PO (07:54)
--- NOTE | 2019-06-05 10:18 | CASEMGMT ---
Social Work IDT met with patient and for care plan meeting. Discussed patient's progress in therapy. Pt is CGA walking 100ft at FWW, min to mod assist for bed mobility and sitting to standing, max assist for LE dressing, min assist for bathing and toileting, set up for UE ADLs. Pt working with ST with memory and pt has returned to baseline. Pt gets food cut up in bit size pieces and follows heart healthy diet. Pt lives at home with and cannot physically assist pt. Pt needs to be independent prior to returning home. Explained Medicare coverage. Will continue to follow. NATALIE ClementeW
[2019-06-05] MEDS: oxyCODONE 5 MG Tablet PO (10:42)
[2019-06-05 15:14] VITALS: BP 129/66; PULSE 57; RESP 18; TEMP 36.8; O2SAT 96
[2019-06-06] MEDS: Famotidine 20 MG Tablet PO (04:44)
[2019-06-06] MEDS: amLODIPine 10 MG Tablet PO (04:44)
[2019-06-06] MEDS: Lisinopril 5 MG Tablet 15 MG PO (04:44)
[2019-06-06] MEDS: Senna/Docusate Sodium 1 Tablet 2 TABLET PO ×2 (04:44→18:09)
[2019-06-06] MEDS: Polyethylene Glycol 3350 17 GM PACKET PO (04:44)
[2019-06-06] MEDS: Sertraline 50 MG Tablet PO (04:44)
[2019-06-06] MEDS: Acetaminophen 500 MG Tablet 1000 MG PO ×3 (04:44→21:41)
[2019-06-06] MEDS: APIXABAN 2.5 MG TABLET PO ×2 (04:45→18:09)
[2019-06-06] MEDS: Menthol/Lanolin/Calamine/Znox 113 GM Tube 1 APPLIC TOPICAL ×2 (04:45→18:08)
[2019-06-06] MEDS: Nystatin Powder 15gm Bottle 1 APPLIC TOPICAL ×2 (04:45→21:41)
[2019-06-06] MEDS: Glucerna Shake 120 ML LIQUID PO ×4 (04:46→21:41)
[2019-06-06 06:25] LABS: Bedside Glucose 115 mg/dL (70-110)
[2019-06-06] MEDS: Galantamine Hydrobromide 4 MG Tablet PO ×2 (08:04→18:08)
[2019-06-06] MEDS: Vitamin E 400 UNITS Capsule PO (08:04)
[2019-06-06 08:53] VITALS: PULSE 62; RESP 16; O2SAT 98
[2019-06-06] MEDS: oxyCODONE 5 MG Tablet PO (14:32)
[2019-06-06 16:00] VITALS: BP 124/64; PULSE 58; RESP 16; TEMP 36.7; O2SAT 97
[2019-06-07] MEDS: Glucerna Shake 120 ML LIQUID PO ×4 (05:45→20:55)
[2019-06-07] MEDS: amLODIPine 10 MG Tablet PO (05:45)
[2019-06-07] MEDS: Sertraline 50 MG Tablet PO (05:46)
[2019-06-07] MEDS: Senna/Docusate Sodium 1 Tablet 2 TABLET PO ×2 (05:46→17:45)
[2019-06-07] MEDS: Famotidine 20 MG Tablet PO (05:46)
[2019-06-07] MEDS: Lisinopril 5 MG Tablet 15 MG PO (05:46)
[2019-06-07] MEDS: Acetaminophen 500 MG Tablet 1000 MG PO ×3 (05:46→20:53)
[2019-06-07] MEDS: APIXABAN 2.5 MG TABLET PO ×2 (05:46→17:45)
[2019-06-07] MEDS: Polyethylene Glycol 3350 17 GM PACKET PO (05:46)
[2019-06-07] MEDS: Menthol/Lanolin/Calamine/Znox 113 GM Tube 1 APPLIC TOPICAL ×2 (05:57→17:42)
[2019-06-07] MEDS: Nystatin Powder 15gm Bottle 1 APPLIC TOPICAL ×2 (05:58→20:57)
[2019-06-07 06:46] LABS: Bedside Glucose 121 mg/dL (70-110)
[2019-06-07] MEDS: Galantamine Hydrobromide 4 MG Tablet PO ×2 (08:09→17:45)
[2019-06-07] MEDS: Vitamin E 400 UNITS Capsule PO (08:09)
[2019-06-07] MEDS: oxyCODONE 5 MG Tablet PO (11:10)
[2019-06-07 16:00] VITALS: BP 114/59; PULSE 58; RESP 14; TEMP 36.8; O2SAT 96
[2019-06-07 20:45] VITALS: RESP 16
[2019-06-08] MEDS: oxyCODONE 5 MG Tablet PO (01:48)
[2019-06-08] MEDS: Menthol/Lanolin/Calamine/Znox 113 GM Tube 1 APPLIC TOPICAL ×2 (06:08→18:42)
[2019-06-08] MEDS: Nystatin Powder 15gm Bottle 1 APPLIC TOPICAL ×2 (06:09→21:23)
[2019-06-08] MEDS: Glucerna Shake 120 ML LIQUID PO ×4 (06:09→21:23)
[2019-06-08] MEDS: Lisinopril 5 MG Tablet 15 MG PO (06:10)
[2019-06-08] MEDS: APIXABAN 2.5 MG TABLET PO ×2 (06:10→16:55)
[2019-06-08] MEDS: Famotidine 20 MG Tablet PO (06:10)
[2019-06-08] MEDS: Senna/Docusate Sodium 1 Tablet 2 TABLET PO ×2 (06:10→16:55)
[2019-06-08] MEDS: Acetaminophen 500 MG Tablet 1000 MG PO ×3 (06:10→21:24)
[2019-06-08] MEDS: Polyethylene Glycol 3350 17 GM PACKET PO (06:10)
[2019-06-08] MEDS: Sertraline 50 MG Tablet PO (06:10)
[2019-06-08] MEDS: amLODIPine 10 MG Tablet PO (06:10)
[2019-06-08 06:21] LABS: Bedside Glucose 104 mg/dL (70-110)
[2019-06-08 07:04] LABS: Absolute Lymphocyte Count 2.09 X10^3/uL (0.83-4.51); Absolute Neutrophil Count 2.6 X10^3/uL (2.0-7.7); Basophil# 0.03 X10^3/uL; Basophil% 0.6 % (0-1); Eosinophil# 0.17 X10^3/uL; Eosinophils% 3.2 % (0-5); Hematocrit 36.7 % (40-54); Hemoglobin 12.2 g/dL (13.0-16.5); Lymphocyte # 2.09 X10^3/ul (4.0); Lymphocyte % 39.3 % (19-41); Mean Corp Hgb Conc 33.2 g/dL (32-36); Mean Corpuscular Volume 93.4 fL (80-94); Mean Platelet Vol. 9.8 fl (6.2-12.0); Monocyte# 0.43 X10^3/uL; Monocyte% 8.1 % (0-10); NRBC Flagged by Analyzer 0 % (0-5); Neutrophil # 2.58 X10^3/uL (2.7-7.7); Neutrophil % 48.4 % (47-70); Platelet Count 144 K/mm3 (150-450); RBC Distribution Width CV 13.6 % (11.6-14.6); RBC Distribution Width SD 46.6 fl (35.1-43.9); Red Blood Count 3.93 M/mm3 (4.6-6.2); White Blood Count 5.3 K/mm3 (4.4-11.0)
[2019-06-08 07:43] LABS: Anion Gap 4 (5-15); BUN 20 mg/dL (7-18); BUN/Creat Ratio 23.6 RATIO (10-20); Calcium,Total 8.4 mg/dL (8.5-10.1); Chloride 103 mmol/L (98-107); Creatinine, Serum 0.85 mg/dL (0.70-1.30); EST Glomerular Filtration Rate 93 mL/min (>60); Est Glom Filt Rate - Afr Amer 113 mL/min (>60); Estimated Creatinine Clearance 87.93 ml/min; Glucose 101 mg/dL (74-106); Sodium Level 137 mmol/L (136-145)
[2019-06-08] MEDS: Vitamin E 400 UNITS Capsule PO (08:04)
[2019-06-08] MEDS: Galantamine Hydrobromide 4 MG Tablet PO ×2 (08:05→16:54)
[2019-06-08] MEDS: Tuberculin,Purif.prot.deriv. 50 TU/ML Vial 5 ML ID (11:28)
[2019-06-08 16:00] VITALS: BP 124/63; PULSE 63; RESP 20; TEMP 36.7; O2SAT 95
[2019-06-09] MEDS: Menthol/Lanolin/Calamine/Znox 113 GM Tube 1 APPLIC TOPICAL ×2 (05:51→17:53)
[2019-06-09] MEDS: Glucerna Shake 120 ML LIQUID PO ×4 (05:51→22:14)
[2019-06-09] MEDS: Nystatin Powder 15gm Bottle 1 APPLIC TOPICAL ×2 (05:52→22:14)
[2019-06-09] MEDS: Acetaminophen 500 MG Tablet 1000 MG PO ×3 (05:53→22:15)
[2019-06-09] MEDS: Senna/Docusate Sodium 1 Tablet 2 TABLET PO ×2 (05:53→17:52)
[2019-06-09] MEDS: amLODIPine 10 MG Tablet PO (05:53)
[2019-06-09] MEDS: Lisinopril 5 MG Tablet 15 MG PO (05:53)
[2019-06-09] MEDS: Sertraline 50 MG Tablet PO (05:54)
[2019-06-09] MEDS: APIXABAN 2.5 MG TABLET PO ×2 (05:54→17:52)
[2019-06-09] MEDS: Famotidine 20 MG Tablet PO (05:54)
[2019-06-09 06:31] LABS: Bedside Glucose 115 mg/dL (70-110)
[2019-06-09] MEDS: Vitamin E 400 UNITS Capsule PO (08:45)
[2019-06-09] MEDS: Galantamine Hydrobromide 4 MG Tablet PO ×2 (08:45→17:53)
[2019-06-09 11:50] VITALS: RESP 16
[2019-06-09 15:58] VITALS: BP 145/61; PULSE 62; RESP 18; TEMP 37; O2SAT 96
[2019-06-10] MEDS: Menthol/Lanolin/Calamine/Znox 113 GM Tube 1 APPLIC TOPICAL ×2 (05:24→16:52)
[2019-06-10] MEDS: Nystatin Powder 15gm Bottle 1 APPLIC TOPICAL ×2 (05:24→21:08)
[2019-06-10] MEDS: Famotidine 20 MG Tablet PO (05:25)
[2019-06-10] MEDS: Acetaminophen 500 MG Tablet 1000 MG PO ×3 (05:25→21:03)
[2019-06-10] MEDS: Sertraline 50 MG Tablet PO (05:25)
[2019-06-10] MEDS: Senna/Docusate Sodium 1 Tablet 2 TABLET PO (05:25)
[2019-06-10] MEDS: amLODIPine 10 MG Tablet PO (05:25)
[2019-06-10] MEDS: Lisinopril 5 MG Tablet 15 MG PO (05:25)
[2019-06-10] MEDS: Polyethylene Glycol 3350 17 GM PACKET PO (05:26)
[2019-06-10] MEDS: Glucerna Shake 120 ML LIQUID PO ×4 (05:27→21:06)
[2019-06-10] MEDS: APIXABAN 2.5 MG TABLET PO ×2 (05:27→16:52)
[2019-06-10 06:26] LABS: Bedside Glucose 124 mg/dL (70-110)
[2019-06-10] MEDS: Galantamine Hydrobromide 4 MG Tablet PO ×2 (08:03→16:52)
[2019-06-10] MEDS: Vitamin E 400 UNITS Capsule PO (08:03)
[2019-06-10 10:00] VITALS: PULSE 65; RESP 16; O2SAT 98
--- NOTE | 2019-06-10 14:19 | NURSING ---
THAD Mathis called this RN to room. She states patient appeared more drowsy and stated that he was in a hotel. When this RN entered room patient was sitting up in chair with eyes open. Patient was able to tell me that he was at [facility] and that it was May 2019. His hand grasps and leg lifts were equal bilaterally. Pupils were round with brisk reaction ~ 3mm in diameter. He denied feeling confused just stated that he was just waking up. Will continue to monitor.
[2019-06-10] MEDS: oxyCODONE 5 MG Tablet PO (15:03)
[2019-06-10 16:00] VITALS: BP 112/64; PULSE 59; RESP 16; TEMP 36.9; O2SAT 95
--- NOTE | 2019-06-10 21:25 | PCA ---
This patient is scheduled for Therapy to help with ADLS in the AM and patient refused to get washed up. skin care and incontinence care was done.
[2019-06-11] MEDS: amLODIPine 10 MG Tablet PO (06:00)
[2019-06-11] MEDS: Polyethylene Glycol 3350 17 GM PACKET PO (06:00)
[2019-06-11] MEDS: Famotidine 20 MG Tablet PO (06:00)
[2019-06-11] MEDS: Lisinopril 5 MG Tablet 15 MG PO (06:00)
[2019-06-11] MEDS: Sertraline 50 MG Tablet PO (06:00)
[2019-06-11] MEDS: Acetaminophen 500 MG Tablet 1000 MG PO ×3 (06:00→20:14)
[2019-06-11] MEDS: Glucerna Shake 120 ML LIQUID PO ×4 (06:01→20:13)
[2019-06-11] MEDS: Menthol/Lanolin/Calamine/Znox 113 GM Tube 1 APPLIC TOPICAL ×2 (06:01→17:10)
[2019-06-11] MEDS: APIXABAN 2.5 MG TABLET PO ×2 (06:01→17:07)
[2019-06-11] MEDS: Nystatin Powder 15gm Bottle 1 APPLIC TOPICAL ×2 (06:02→20:17)
[2019-06-11] MEDS: Senna/Docusate Sodium 1 Tablet 2 TABLET PO ×2 (06:05→17:07)
[2019-06-11 06:56] LABS: Bedside Glucose 115 mg/dL (70-110)
[2019-06-11] MEDS: Vitamin E 400 UNITS Capsule PO (08:04)
[2019-06-11] MEDS: Galantamine Hydrobromide 4 MG Tablet PO ×2 (08:04→17:07)
[2019-06-11] MEDS: oxyCODONE 5 MG Tablet PO (10:47)
[2019-06-11 15:24] VITALS: BP 129/68; PULSE 59; RESP 16; TEMP 36.6; O2SAT 95
[2019-06-11 20:05] VITALS: PULSE 64; RESP 16; O2SAT 98
[2019-06-12] MEDS: Menthol/Lanolin/Calamine/Znox 113 GM Tube 1 APPLIC TOPICAL ×2 (05:25→17:23)
[2019-06-12] MEDS: Polyethylene Glycol 3350 17 GM PACKET PO (05:26)
[2019-06-12] MEDS: Acetaminophen 500 MG Tablet 1000 MG PO ×3 (05:26→21:15)
[2019-06-12] MEDS: APIXABAN 2.5 MG TABLET PO ×2 (05:26→17:24)
[2019-06-12] MEDS: Sertraline 50 MG Tablet PO (05:26)
[2019-06-12] MEDS: Famotidine 20 MG Tablet PO (05:27)
[2019-06-12] MEDS: Senna/Docusate Sodium 1 Tablet 2 TABLET PO ×2 (05:27→17:25)
[2019-06-12] MEDS: amLODIPine 10 MG Tablet PO (05:27)
[2019-06-12] MEDS: Lisinopril 5 MG Tablet 15 MG PO (05:27)
[2019-06-12] MEDS: Nystatin Powder 15gm Bottle 1 APPLIC TOPICAL ×2 (05:27→21:14)
[2019-06-12] MEDS: Glucerna Shake 120 ML LIQUID PO ×4 (05:32→21:14)
[2019-06-12 05:34] VITALS: RESP 16; O2SAT 97
[2019-06-12 06:27] LABS: Bedside Glucose 108 mg/dL (70-110)
[2019-06-12] MEDS: Galantamine Hydrobromide 4 MG Tablet PO ×2 (08:13→17:23)
[2019-06-12] MEDS: Vitamin E 400 UNITS Capsule PO (08:13)
[2019-06-12] MEDS: oxyCODONE 5 MG Tablet PO (11:10)
[2019-06-12 16:00] VITALS: BP 110/56; PULSE 55; RESP 20; TEMP 36.4; O2SAT 95
[2019-06-12] MEDS: Clotrimazole/Betamethasone 1 Tube 1 APPLIC TOPICAL (17:24)
[2019-06-13] MEDS: Glucerna Shake 120 ML LIQUID PO ×4 (05:42→22:33)
[2019-06-13] MEDS: Menthol/Lanolin/Calamine/Znox 113 GM Tube 1 APPLIC TOPICAL ×2 (05:42→17:34)
[2019-06-13] MEDS: Clotrimazole/Betamethasone 1 Tube 1 APPLIC TOPICAL ×2 (05:43→18:53)
[2019-06-13] MEDS: Sertraline 50 MG Tablet PO (05:43)
[2019-06-13] MEDS: APIXABAN 2.5 MG TABLET PO ×2 (05:43→17:33)
[2019-06-13] MEDS: amLODIPine 10 MG Tablet PO (05:43)
[2019-06-13] MEDS: Famotidine 20 MG Tablet PO (05:43)
[2019-06-13] MEDS: Acetaminophen 500 MG Tablet 1000 MG PO ×3 (05:44→22:34)
[2019-06-13] MEDS: Lisinopril 5 MG Tablet 15 MG PO (05:44)
[2019-06-13] MEDS: Senna/Docusate Sodium 1 Tablet 2 TABLET PO ×2 (05:45→17:33)
[2019-06-13] MEDS: Polyethylene Glycol 3350 17 GM PACKET PO (05:45)
[2019-06-13] MEDS: Nystatin Powder 15gm Bottle 1 APPLIC TOPICAL ×2 (05:53→22:37)
[2019-06-13 06:31] LABS: Bedside Glucose 110 mg/dL (70-110)
[2019-06-13] MEDS: oxyCODONE 5 MG Tablet PO (08:45)
[2019-06-13] MEDS: Galantamine Hydrobromide 4 MG Tablet PO ×2 (08:46→17:33)
[2019-06-13] MEDS: Vitamin E 400 UNITS Capsule PO (08:46)
--- NOTE | 2019-06-13 10:00 | MDS.RN ---
Information for the mds was obtained from review of the clinical record, interview of resident, staff, and direct observation of resident's care.
[2019-06-13 13:00] VITALS: PULSE 58; RESP 18; O2SAT 97
[2019-06-13 16:00] VITALS: BP 114/65; PULSE 56; RESP 18; TEMP 36.9; O2SAT 97
[2019-06-14] MEDS: Glucerna Shake 120 ML LIQUID PO ×4 (06:25→21:19)
[2019-06-14] MEDS: Lisinopril 5 MG Tablet 15 MG PO (06:26)
[2019-06-14] MEDS: Clotrimazole/Betamethasone 1 Tube 1 APPLIC TOPICAL ×2 (06:26→18:40)
[2019-06-14] MEDS: Senna/Docusate Sodium 1 Tablet 2 TABLET PO ×2 (06:26→17:52)
[2019-06-14] MEDS: Acetaminophen 500 MG Tablet 1000 MG PO ×3 (06:26→21:17)
[2019-06-14] MEDS: Sertraline 50 MG Tablet PO (06:27)
[2019-06-14] MEDS: Famotidine 20 MG Tablet PO (06:27)
[2019-06-14] MEDS: amLODIPine 10 MG Tablet PO (06:27)
[2019-06-14] MEDS: APIXABAN 2.5 MG TABLET PO ×2 (06:27→17:53)
[2019-06-14] MEDS: Polyethylene Glycol 3350 17 GM PACKET PO (06:28)
[2019-06-14] MEDS: Nystatin Powder 15gm Bottle 1 APPLIC TOPICAL ×2 (06:29→21:17)
[2019-06-14] MEDS: Menthol/Lanolin/Calamine/Znox 113 GM Tube 1 APPLIC TOPICAL ×2 (06:29→18:47)
[2019-06-14 06:31] LABS: Bedside Glucose 96 mg/dL (70-110)
[2019-06-14] MEDS: Galantamine Hydrobromide 4 MG Tablet PO ×2 (08:59→17:52)
[2019-06-14] MEDS: Vitamin E 400 UNITS Capsule PO (08:59)
--- NOTE | 2019-06-14 14:33 | NURSING ---
pt in therapy at this time
[2019-06-14 16:00] VITALS: BP 127/73; PULSE 63; RESP 16; TEMP 36.9; O2SAT 96
[2019-06-15] MEDS: Menthol/Lanolin/Calamine/Znox 113 GM Tube 1 APPLIC TOPICAL ×2 (05:19→18:16)
[2019-06-15] MEDS: Nystatin Powder 15gm Bottle 1 APPLIC TOPICAL ×2 (05:20→20:39)
[2019-06-15] MEDS: Clotrimazole/Betamethasone 1 Tube 1 APPLIC TOPICAL ×2 (05:21→19:13)
[2019-06-15] MEDS: APIXABAN 2.5 MG TABLET PO ×2 (05:21→18:15)
[2019-06-15] MEDS: amLODIPine 10 MG Tablet PO (05:22)
[2019-06-15] MEDS: Acetaminophen 500 MG Tablet 1000 MG PO ×3 (05:22→20:38)
[2019-06-15] MEDS: Famotidine 20 MG Tablet PO (05:22)
[2019-06-15] MEDS: Lisinopril 5 MG Tablet 15 MG PO (05:22)
[2019-06-15] MEDS: Sertraline 50 MG Tablet PO (05:22)
[2019-06-15] MEDS: Glucerna Shake 120 ML LIQUID PO ×4 (05:25→20:45)
[2019-06-15 06:36] LABS: Bedside Glucose 127 mg/dL (70-110)
[2019-06-15 07:46] LABS: Absolute Lymphocyte Count 1.61 X10^3/uL (0.83-4.51); Absolute Neutrophil Count 2.9 X10^3/uL (2.0-7.7); Basophil# 0.03 X10^3/uL; Basophil% 0.6 % (0-1); Eosinophil# 0.14 X10^3/uL; Eosinophils% 2.7 % (0-5); Hematocrit 39.3 % (40-54); Lymphocyte # 1.61 X10^3/ul (4.0); Lymphocyte % 31.4 % (19-41); Mean Corp Hgb Conc 33.1 g/dL (32-36); Mean Corpuscular Hgb 30.7 pg (27.0-32.0); Mean Corpuscular Volume 92.9 fL (80-94); Mean Platelet Vol. 10.1 fl (6.2-12.0); Monocyte# 0.44 X10^3/uL; Monocyte% 8.6 % (0-10); NRBC Flagged by Analyzer 0 % (0-5); Neutrophil # 2.89 X10^3/uL (2.7-7.7); Neutrophil % 56.5 % (47-70); Platelet Count 152 K/mm3 (150-450); RBC Distribution Width CV 13.7 % (11.6-14.6); RBC Distribution Width SD 46.4 fl (35.1-43.9); Red Blood Count 4.23 M/mm3 (4.6-6.2); White Blood Count 5.1 K/mm3 (4.4-11.0)
[2019-06-15 07:56] LABS: Anion Gap 5 (5-15); BUN 21 mg/dL (7-18); BUN/Creat Ratio 25.6 RATIO (10-20); Calcium,Total 8.8 mg/dL (8.5-10.1); Chloride 105 mmol/L (98-107); Creatinine, Serum 0.82 mg/dL (0.70-1.30); EST Glomerular Filtration Rate 97 mL/min (>60); Est Glom Filt Rate - Afr Amer 117 mL/min (>60); Estimated Creatinine Clearance 91.15 ml/min; Glucose 107 mg/dL (74-106); Potassium 4.2 mmol/L (3.5-5.1); Sodium Level 138 mmol/L (136-145)
[2019-06-15] MEDS: Vitamin E 400 UNITS Capsule PO (08:06)
[2019-06-15] MEDS: Galantamine Hydrobromide 4 MG Tablet PO ×2 (08:06→18:15)
--- NOTE | 2019-06-15 09:40 | NURSING ---
PT STATED TO THERAPY THAT HE FELT A LITTLE FUZZY IN HEAD. PT STATED TO THIS NURSE HE WAS TIRED. VITALS DONE,REPORTED TO ADRIANNE ALTAMIRANO
[2019-06-15 09:45] VITALS: BP 108/56; PULSE 63; O2SAT 95
[2019-06-15 10:35] VITALS: PULSE 66; RESP 18; O2SAT 97
[2019-06-15 16:00] VITALS: BP 120/66; PULSE 64; RESP 16; TEMP 36.7; O2SAT 95
[2019-06-15] MEDS: Senna/Docusate Sodium 1 Tablet 2 TABLET PO (18:15)
[2019-06-16] MEDS: Clotrimazole/Betamethasone 1 Tube 1 APPLIC TOPICAL ×2 (05:30→16:37)
[2019-06-16] MEDS: Acetaminophen 500 MG Tablet 1000 MG PO ×3 (05:30→20:21)
[2019-06-16] MEDS: Senna/Docusate Sodium 1 Tablet 2 TABLET PO ×2 (05:31→16:34)
[2019-06-16] MEDS: Famotidine 20 MG Tablet PO (05:31)
[2019-06-16] MEDS: Sertraline 50 MG Tablet PO (05:31)
[2019-06-16] MEDS: Lisinopril 5 MG Tablet 15 MG PO (05:31)
[2019-06-16] MEDS: amLODIPine 10 MG Tablet PO (05:31)
[2019-06-16] MEDS: Menthol/Lanolin/Calamine/Znox 113 GM Tube 1 APPLIC TOPICAL ×2 (05:32→16:40)
[2019-06-16] MEDS: Nystatin Powder 15gm Bottle 1 APPLIC TOPICAL ×2 (05:33→20:24)
[2019-06-16] MEDS: Glucerna Shake 120 ML LIQUID PO ×4 (05:36→20:20)
[2019-06-16 06:31] LABS: Bedside Glucose 117 mg/dL (70-110)
[2019-06-16] MEDS: Vitamin E 400 UNITS Capsule PO (07:44)
[2019-06-16] MEDS: Galantamine Hydrobromide 4 MG Tablet PO ×2 (07:44→16:34)
[2019-06-16 16:00] VITALS: BP 117/61; PULSE 66; RESP 18; TEMP 36.7; O2SAT 93
[2019-06-16 20:15] VITALS: RESP 16
[2019-06-16] MEDS: Aspirin 81 MG TAB.CHEW PO (20:21)
[2019-06-17] MEDS: Polyethylene Glycol 3350 17 GM PACKET PO (05:36)
[2019-06-17] MEDS: Senna/Docusate Sodium 1 Tablet 2 TABLET PO ×2 (05:36→17:23)
[2019-06-17] MEDS: Menthol/Lanolin/Calamine/Znox 113 GM Tube 1 APPLIC TOPICAL ×2 (05:36→17:25)
[2019-06-17] MEDS: Lisinopril 5 MG Tablet 15 MG PO (05:36)
[2019-06-17] MEDS: amLODIPine 10 MG Tablet PO (05:37)
[2019-06-17] MEDS: Famotidine 20 MG Tablet PO (05:37)
[2019-06-17] MEDS: Acetaminophen 500 MG Tablet 1000 MG PO ×3 (05:37→21:38)
[2019-06-17] MEDS: Glucerna Shake 120 ML LIQUID PO ×4 (05:38→21:38)
[2019-06-17] MEDS: Sertraline 50 MG Tablet PO (05:38)
[2019-06-17] MEDS: Nystatin Powder 15gm Bottle 1 APPLIC TOPICAL ×2 (05:39→21:36)
[2019-06-17] MEDS: Clotrimazole/Betamethasone 1 Tube 1 APPLIC TOPICAL ×2 (05:39→17:24)
[2019-06-17 06:21] LABS: Bedside Glucose 92 mg/dL (70-110)
[2019-06-17] MEDS: Vitamin E 400 UNITS Capsule PO (08:46)
[2019-06-17] MEDS: Galantamine Hydrobromide 4 MG Tablet PO ×2 (08:46→17:23)
[2019-06-17 16:00] VITALS: BP 126/73; PULSE 68; RESP 17; TEMP 36.8; O2SAT 100
[2019-06-17] MEDS: Aspirin 81 MG TAB.CHEW PO (21:39)
[2019-06-18] MEDS: Nystatin Powder 15gm Bottle 1 APPLIC TOPICAL ×2 (05:31→21:04)
[2019-06-18] MEDS: Glucerna Shake 120 ML LIQUID PO ×3 (05:32→17:44)
[2019-06-18] MEDS: Menthol/Lanolin/Calamine/Znox 113 GM Tube 1 APPLIC TOPICAL ×2 (05:32→17:48)
[2019-06-18] MEDS: Clotrimazole/Betamethasone 1 Tube 1 APPLIC TOPICAL ×2 (05:33→17:45)
[2019-06-18] MEDS: Lisinopril 5 MG Tablet 15 MG PO (05:33)
[2019-06-18] MEDS: Acetaminophen 500 MG Tablet 1000 MG PO ×3 (05:34→20:59)
[2019-06-18] MEDS: Sertraline 50 MG Tablet PO (05:34)
[2019-06-18] MEDS: Senna/Docusate Sodium 1 Tablet 2 TABLET PO ×2 (05:34→17:45)
[2019-06-18] MEDS: Famotidine 20 MG Tablet PO (05:35)
[2019-06-18] MEDS: amLODIPine 10 MG Tablet PO (05:35)
[2019-06-18 06:31] LABS: Bedside Glucose 131 mg/dL (70-110)
[2019-06-18] MEDS: oxyCODONE 5 MG Tablet PO (09:39)
[2019-06-18] MEDS: Galantamine Hydrobromide 4 MG Tablet PO ×2 (09:40→17:44)
[2019-06-18] MEDS: Vitamin E 400 UNITS Capsule PO (09:40)
[2019-06-18 11:35] VITALS: RESP 18
[2019-06-18 15:53] VITALS: BP 121/58; PULSE 66; RESP 20; TEMP 37.1; O2SAT 94
[2019-06-18] MEDS: Aspirin 81 MG TAB.CHEW PO (20:59)
[2019-06-19] MEDS: Menthol/Lanolin/Calamine/Znox 113 GM Tube 1 APPLIC TOPICAL ×2 (05:47→17:34)
[2019-06-19] MEDS: Nystatin Powder 15gm Bottle 1 APPLIC TOPICAL ×2 (05:48→21:33)
[2019-06-19] MEDS: Clotrimazole/Betamethasone 1 Tube 1 APPLIC TOPICAL ×2 (05:48→17:35)
[2019-06-19] MEDS: Polyethylene Glycol 3350 17 GM PACKET PO (05:49)
[2019-06-19] MEDS: Sertraline 50 MG Tablet PO (05:50)
[2019-06-19] MEDS: amLODIPine 10 MG Tablet PO (05:50)
[2019-06-19] MEDS: Lisinopril 5 MG Tablet 15 MG PO (05:50)
[2019-06-19] MEDS: Famotidine 20 MG Tablet PO (05:50)
[2019-06-19] MEDS: Senna/Docusate Sodium 1 Tablet 2 TABLET PO ×2 (05:50→17:35)
[2019-06-19] MEDS: Acetaminophen 500 MG Tablet 1000 MG PO ×3 (05:50→21:31)
[2019-06-19] MEDS: Galantamine Hydrobromide 4 MG Tablet PO ×2 (08:02→17:34)
[2019-06-19] MEDS: Vitamin E 400 UNITS Capsule PO (08:02)
[2019-06-19 09:52] VITALS: RESP 18
[2019-06-19 15:34] VITALS: BP 122/65; PULSE 62; RESP 18; TEMP 36.9; O2SAT 95
[2019-06-19] MEDS: Aspirin 81 MG TAB.CHEW PO (21:32)
[2019-06-20] MEDS: Acetaminophen 500 MG Tablet 1000 MG PO ×3 (06:11→21:28)
[2019-06-20] MEDS: Senna/Docusate Sodium 1 Tablet 2 TABLET PO ×2 (06:12→16:47)
[2019-06-20] MEDS: amLODIPine 10 MG Tablet PO (06:12)
[2019-06-20] MEDS: Polyethylene Glycol 3350 17 GM PACKET PO (06:12)
[2019-06-20] MEDS: Famotidine 20 MG Tablet PO (06:12)
[2019-06-20] MEDS: Sertraline 50 MG Tablet PO (06:12)
[2019-06-20] MEDS: Lisinopril 5 MG Tablet 15 MG PO (06:12)
[2019-06-20] MEDS: Clotrimazole/Betamethasone 1 Tube 1 APPLIC TOPICAL ×2 (06:17→16:51)
[2019-06-20] MEDS: Menthol/Lanolin/Calamine/Znox 113 GM Tube 1 APPLIC TOPICAL ×2 (06:18→16:52)
[2019-06-20] MEDS: Nystatin Powder 15gm Bottle 1 APPLIC TOPICAL ×2 (06:19→21:30)
[2019-06-20] MEDS: Vitamin E 400 UNITS Capsule PO (08:16)
[2019-06-20] MEDS: Galantamine Hydrobromide 4 MG Tablet PO ×2 (08:16→16:47)
[2019-06-20] MEDS: Glucerna Shake 120 ML LIQUID PO ×3 (11:13→21:27)
[2019-06-20 16:00] VITALS: BP 112/61; PULSE 59; RESP 16; TEMP 36.8; O2SAT 95
[2019-06-20] MEDS: Aspirin 81 MG TAB.CHEW PO (21:28)
[2019-06-21] MEDS: Glucerna Shake 120 ML LIQUID PO ×2 (04:43→12:11)
[2019-06-21] MEDS: Menthol/Lanolin/Calamine/Znox 113 GM Tube 1 APPLIC TOPICAL ×3 (04:44→20:42)
[2019-06-21] MEDS: Clotrimazole/Betamethasone 1 Tube 1 APPLIC TOPICAL ×2 (04:45→19:08)
[2019-06-21] MEDS: Acetaminophen 500 MG Tablet 1000 MG PO ×3 (04:46→20:40)
[2019-06-21] MEDS: Lisinopril 5 MG Tablet 15 MG PO (04:46)
[2019-06-21] MEDS: Senna/Docusate Sodium 1 Tablet 2 TABLET PO ×2 (04:46→17:57)
[2019-06-21] MEDS: Famotidine 20 MG Tablet PO (04:46)
[2019-06-21] MEDS: Polyethylene Glycol 3350 17 GM PACKET PO (04:46)
[2019-06-21] MEDS: Sertraline 50 MG Tablet PO (04:46)
[2019-06-21] MEDS: amLODIPine 10 MG Tablet PO (04:47)
[2019-06-21] MEDS: Nystatin Powder 15gm Bottle 1 APPLIC TOPICAL ×2 (04:47→20:42)
[2019-06-21] MEDS: Galantamine Hydrobromide 4 MG Tablet PO ×2 (08:23→17:57)
[2019-06-21] MEDS: Vitamin E 400 UNITS Capsule PO (08:23)
[2019-06-21 12:50] VITALS: PULSE 65; RESP 18; O2SAT 97
[2019-06-21 15:59] VITALS: BP 111/60; PULSE 68; RESP 17; TEMP 37; O2SAT 93
[2019-06-21] MEDS: Aspirin 81 MG TAB.CHEW PO (20:40)
--- NOTE | 2019-06-21 23:45 | NURSING ---
2340- pt observed by VENEER TRIMMER to be ambulating in abdul without assistance. Was wearing shoes and using walker and attempting to enter room 6. Pt states he was trying to brush my teeth. Pt reoriented to environment and assisted back to his room to brush teeth and use restroom. Returned to bed and bed alarm applied for patient safety. Pt reminded to call for assistance getting OOB.
[2019-06-22] MEDS: Clotrimazole/Betamethasone 1 Tube 1 APPLIC TOPICAL ×2 (04:23→17:46)
[2019-06-22] MEDS: Senna/Docusate Sodium 1 Tablet 2 TABLET PO ×2 (04:24→17:46)
[2019-06-22] MEDS: Famotidine 20 MG Tablet PO (04:24)
[2019-06-22] MEDS: Sertraline 50 MG Tablet PO (04:24)
[2019-06-22] MEDS: Polyethylene Glycol 3350 17 GM PACKET PO (04:24)
[2019-06-22] MEDS: Acetaminophen 500 MG Tablet 1000 MG PO ×3 (04:24→21:16)
[2019-06-22] MEDS: amLODIPine 10 MG Tablet PO (04:24)
[2019-06-22] MEDS: Lisinopril 5 MG Tablet 15 MG PO (04:24)
[2019-06-22] MEDS: Nystatin Powder 15gm Bottle 1 APPLIC TOPICAL ×2 (04:25→21:15)
[2019-06-22] MEDS: Galantamine Hydrobromide 4 MG Tablet PO ×2 (08:03→17:46)
[2019-06-22] MEDS: Vitamin E 400 UNITS Capsule PO (08:03)
[2019-06-22 16:00] VITALS: BP 125/67; PULSE 59; RESP 18; TEMP 36.7; O2SAT 96
[2019-06-22] MEDS: Glucerna Shake 120 ML LIQUID PO ×2 (17:46→21:15)
[2019-06-22] MEDS: Menthol/Lanolin/Calamine/Znox 113 GM Tube 1 APPLIC TOPICAL (17:53)
[2019-06-22] MEDS: Aspirin 81 MG TAB.CHEW PO (21:15)
[2019-06-22 21:20] VITALS: BP 132/64; PULSE 61; RESP 16; TEMP 36.7; O2SAT 95
[2019-06-23] MEDS: Nystatin Powder 15gm Bottle 1 APPLIC TOPICAL ×2 (05:35→19:45)
[2019-06-23] MEDS: Menthol/Lanolin/Calamine/Znox 113 GM Tube 1 APPLIC TOPICAL ×3 (05:36→19:45)
[2019-06-23] MEDS: Senna/Docusate Sodium 1 Tablet 2 TABLET PO ×2 (05:36→18:29)
[2019-06-23] MEDS: Lisinopril 5 MG Tablet 15 MG PO (05:36)
[2019-06-23] MEDS: Sertraline 50 MG Tablet PO (05:36)
[2019-06-23] MEDS: Famotidine 20 MG Tablet PO (05:36)
[2019-06-23] MEDS: amLODIPine 10 MG Tablet PO (05:37)
[2019-06-23] MEDS: Acetaminophen 500 MG Tablet 1000 MG PO ×3 (05:38→19:42)
[2019-06-23] MEDS: Galantamine Hydrobromide 4 MG Tablet PO ×2 (07:57→18:29)
[2019-06-23] MEDS: Vitamin E 400 UNITS Capsule PO (07:58)
[2019-06-23 10:00] VITALS: PULSE 64; RESP 16; O2SAT 96
[2019-06-23] MEDS: Glucerna Shake 120 ML LIQUID PO ×2 (11:44→18:28)
[2019-06-23 16:00] VITALS: BP 133/66; PULSE 77; RESP 18; TEMP 37.1; O2SAT 97
[2019-06-23] MEDS: Aspirin 81 MG TAB.CHEW PO (19:42)
[2019-06-24] MEDS: Sertraline 50 MG Tablet PO (06:26)
[2019-06-24] MEDS: Glucerna Shake 120 ML LIQUID PO ×3 (06:26→17:56)
[2019-06-24] MEDS: Senna/Docusate Sodium 1 Tablet 2 TABLET PO ×2 (06:27→17:58)
[2019-06-24] MEDS: Nystatin Powder 15gm Bottle 1 APPLIC TOPICAL ×2 (06:27→21:18)
[2019-06-24] MEDS: Famotidine 20 MG Tablet PO (06:27)
[2019-06-24] MEDS: Lisinopril 5 MG Tablet 15 MG PO (06:27)
[2019-06-24] MEDS: Acetaminophen 500 MG Tablet 1000 MG PO ×3 (06:27→21:15)
[2019-06-24] MEDS: amLODIPine 10 MG Tablet PO (06:27)
[2019-06-24] MEDS: Vitamin E 400 UNITS Capsule PO (08:19)
[2019-06-24] MEDS: Galantamine Hydrobromide 4 MG Tablet PO ×2 (10:18→17:58)
[2019-06-24 10:45] VITALS: PULSE 61; RESP 18; O2SAT 95
--- NOTE | 2019-06-24 14:35 | NURSING ---
PER THELMA FROM THERAPY. PT CAN WALK PT TO BATH ROOM AND WALK PT IN [place]. REPORTED TO ADRIANNE SHI
[2019-06-24 15:51] VITALS: BP 132/68; PULSE 69; RESP 20; TEMP 36.6; O2SAT 96
[2019-06-24] MEDS: Menthol/Lanolin/Calamine/Znox 113 GM Tube 1 APPLIC TOPICAL (17:59)
--- NOTE | 2019-06-24 18:44 | PN_ITS ---
Subjective: Resident seen in room, sitting in chair. He is doing well, no complaints, he has been cleared to walk to bathroom with assistance from his . He feels ready to go home soon. Vitals/I&O's: Vital Signs Temp Pulse Resp BP Pulse Ox 97.9 F 69 20 H 132/68 H 96 06/24/19 15:51 06/24/19 15:51 06/24/19 15:51 06/24/19 15:51 06/24/19 15:51 Oxygen Delivery Method Room Air Weight: 95.311 kg Body Mass Index (BMI) 25.9 Finger Stick Blood Glucose 140 Intake and Output for Last 24 Hours 06/22/19 06/23/19 06/24/19 23:59 23:59 23:59 Intake Total 745 / 745 1400 / 1400 1080 / 1080 Balance 745 / 745 1400 / 1400 1080 / 1080 Past Medical History Past Medical History (Chronic Problems): Chronic Problems (Last Reviewed 02/01/18 @ 06:56 by Royer Maxwell MD) Vascular dementia (Chronic) Cervical spinal stenosis (Chronic) Left hemiparesis (Chronic) Tongue cancer (Chronic) Obstructive sleep apnea (Chronic) Hyperlipidemia (Chronic) Overactive bladder (Chronic) Migraine (Chronic) Diabetes mellitus type 2 in nonobese (Chronic) Urinary incontinence (Chronic) Cerebrovascular disease (Chronic) Stroke (Chronic) HTN (hypertension) (Chronic) Medical History: Medical History (Last Reviewed 02/01/18 @ 06:56 by Royer Maxwell MD) Cerebrovascular disease (Chronic) I67.9 Allergies chocolate flavor Adverse Reaction (Unknown, Verified 05/11/19 17:38) Other headache Pork/Porcine Containing Products Adverse Reaction (Unknown, Verified 05/11/19 17:38) Other headache atorvastatin [From Lipitor] Adverse Reaction (Verified 05/11/19 17:38) Other stomach issues oxybutynin Adverse Reaction (Verified 05/11/19 13:09) Other Home Medications: Ambulatory Orders Medication Instructions Recorded Aspirin [Aspirin, Baby] 81 mg PO QHS 06/12/17 Multivit-Min/Folic Acid/Biotin 1 each PO DAILY 07/30/17 [Hair, Skin and Nails Caplet] [place]-3/Dha/Epa/Fish Oil [Fish Oil 1 each PO DAILY 07/30/17 [place]-3 EC 1,200 mg] Vitamin E (Dl,Tocopheryl Acet) 400 units PO DAILY 07/30/17 [Vitamin E] Lisinopril [Prinivil] 5 mg PO DAILY 02/01/18 Amlodipine Besylate [Norvasc] 10 mg PO DAILY 05/11/19 Rosuvastatin Calcium [Crestor] 10 mg PO MOFR 05/11/19 Sumatriptan Succ/Naproxen Sod 1 ea PO DAILY PRN 05/11/19 [Treximet 85-500 mg Tablet] Galantamine Hbr [Razadyne] 4 mg PO BIDCM 05/14/19 Oxycodone [Oxyir] 5 mg PO Q4H PRN PRN 05/14/19 Acetaminophen [Tylenol] 1,000 mg PO Q8 05/31/19 Apixaban [Eliquis] 2.5 mg PO BID 05/31/19 Famotidine [Pepcid] 20 mg PO DAILY 05/31/19 Lisinopril [Zestril] 10 mg PO DAILY 05/31/19 Magnesium Hydroxide [Milk Of 30 ml PO DAILY 05/31/19 Magnesia] Menthol/Lanolin/Calamine/Znox 1 applic TOPICAL BID 05/31/19 [Calmoseptine Ointment] Naproxen [Naprosyn] 500 mg PO DAILY PRN tab 05/31/19 Senna/Docusate Sodium [Senokot-S] 2 tab PO BID 05/31/19 Sertraline HCl [Zoloft] 50 mg PO DAILY 05/31/19 Surgical History: total hip arthroplasty - Right hip, hemiarthroplasty., - - Tongue resection. Psychiatric History: No pertinent psych hx Lives: Spouse/ Significant Other Smoking Status: Never smoker Tobacco Use: Non-smoker Alcohol: None Drugs: None - *Family History Maternal History Items: No pertinent history Paternal History Items: Stroke Capacity - Capacity Assessment Tool Can the patient make a choice & communicate that choice?: Yes Can the patient understand benefits, risks and alternatives?: Yes Can the patient make a logical, rational choice?: Yes Is the choice the patient makes consistent w/ their values?: Yes Is there an impending, emergent risk to the patient?: No Does the patient have an Advance Directive?: No Is there a Surrogate Available?: Yes i.e. HCPOA: Yes i.e. close relative (spouse, child, parent, sibling)?: Yes Review of Systems Constitutional: Denies: Chills, Fever, Weight Change HEENT: Denies: Head Aches, Sinus Congestion, Sinus Drainage Cardiovascular: Denies: Chest Pain, Palpitations Respiratory: Denies: Cough, Shortness of breath at rest, Sputum production Gastrointestinal: Denies: Abdominal Pain, Nausea, Vomiting Genitourinary: Denies: Dysuria Musculoskeletal: Denies: Joint Pain, Joint Tenderness Skin: Denies: Rash, Wounds Neurological: Denies: Numbness, Tingling, Focal weakness Psychiatric: Denies: Anxiety, Depression, Homicidal Ideations, Suicidal Ideations Hematologic/ Lymphatic: Denies: Easy Bruising, Easy Bleeding - Physical Exam Vitals/I&O's: Vital Signs Temp Pulse Resp BP Pulse Ox 97.9 F 69 20 H 132/68 H 96 06/24/19 15:51 06/24/19 15:51 06/24/19 15:51 06/24/19 15:51 06/24/19 15:51 Oxygen Delivery Method Room Air Weight: 95.311 kg Body Mass Index (BMI) 25.9 Finger Stick Blood Glucose 140 Intake and Output for Last 24 Hours 06/22/19 06/23/19 06/24/19 23:59 23:59 23:59 Intake Total 745 / 745 1400 / 1400 1080 / 1080 Balance 745 / 745 1400 / 1400 1080 / 1080 General: Alert, Oriented x3, Cooperative HEENT: Atraumatic, PERRLA, EOMI, Normocephalic Neck: Supple, No JVD, Negative Carotid Bruits Lungs: Clear to auscultation, Normal air movement Cardiovascular: Regular rate, No murmurs Abdomen: Bowel Sounds Present, Soft, Non Tender Extremities: No edema, Capillary Refill Less than 3 Seconds Skin: No rashes, No breakdown Musculoskeletal: No Tenderness to Palpation of Joints or Extremities Neurological: Cranial nerves II-XII grossly intact Psych/Mental Status: Normal Affect, Appropriate Current Medications Acetaminophen (Tylenol) 1,000 mg PO Q8 [facility] Last Admin: 06/24/19 13:06 Dose: 1,000 mg Documented by: Amlodipine Besylate (Norvasc) 10 mg PO DAILY [facility] Last Admin: 06/24/19 06:27 Dose: 10 mg Documented by: Aspirin (Aspirin, Baby) 81 mg PO QHS [facility] Last Admin: 06/23/19 19:42 Dose: 81 mg Documented by: Bisacodyl (Dulcolax) 10 mg PO DAILY PRN PRN Reason: Constipation Last Admin: 06/05/19 05:39 Dose: 10 mg Documented by: Calamine/Phenol (Calmoseptine Ointment) 1 applic TOPICAL BID [facility]; Protocol Last Admin: 06/24/19 17:59 Dose: 1 applicatio Documented by: Emollient Ointment (Eucerin Intensive Repair) 1 applic TOPICAL 0600,2200 [facility]; Protocol Last Admin: 06/24/19 06:28 Dose: 1 applicatio Documented by: Famotidine (Pepcid) 20 mg PO DAILY [facility] Last Admin: 06/24/19 06:27 Dose: 20 mg Documented by: Galantamine Hydrobromide (Razadyne) 4 mg PO BIDCM [facility] Last Admin: 06/24/19 17:58 Dose: 4 mg Documented by: Lisinopril (Zestril) 15 mg PO DAILY [facility] Last Admin: 06/24/19 06:27 Dose: 15 mg Documented by: Naproxen (Naprosyn) 500 mg PO DAILY PRN PRN Reason: .MIGRAINE SYMPTOMS Nutritional Formula (Lactose Free) (Glucerna Shake) 120 ml PO 4X/DAY [facility] Last Admin: 06/24/19 17:56 Dose: 120 ml Documented by: Nystatin (Mycostatin Powder) 1 applic TOPICAL 0600,2200 [facility]; Protocol Last Admin: 06/24/19 06:27 Dose: 1 applicatio Documented by: Oxycodone HCl (Oxyir) 5 mg PO Q4H PRN PRN PRN Reason: Pain Last Admin: 06/18/19 09:39 Dose: 5 mg Documented by: Polyethylene Glycol (Miralax) 17 gm PO DAILY [facility] Last Admin: 06/24/19 06:28 Dose: Not Given Documented by: Rosuvastatin Calcium (Crestor) 10 mg PO MoFr [facility] Last Admin: 06/21/19 20:41 Dose: 10 mg Documented by: Senna/Docusate Sodium (Senokot-S, Leslye-Colace) 2 tablet PO BID [facility] Last Admin: 06/24/19 17:58 Dose: 2 tablet Documented by: Sertraline HCl (Zoloft) 50 mg PO DAILY [facility] Last Admin: 06/24/19 06:26 Dose: 50 mg Documented by: [facility]amin [facility]) [facility] Last Admin: 06/24/19 08:19 Dose: 400 units Documented by: Assessment/Plan All Active Problems (Last Reviewed 02/01/18 @ 06:56 by Royer Maxwell MD) Closed right hip fracture (Acute) Debility (Acute) Depression (Acute) Normochromic normocytic anemia (Acute) Generalized weakness (Acute) 79 year old male with below past medical history hospitalized for right hip fracture, treated conservatively, admitted to Inpatient Rehabilitation Unit, complicated by depression, admitted to TCU with debility, here for rehabilitation, strengthening, prior to discharge home with . * Debility - PT/OT. * Cognition - ST. * Pain - Tylenol 1000MG Q8H, Oxycodone 5MG Q4H PRN. * Bowel - Miralax 17GM daily, Senna/colace 1 tablet BID, Dulcolax 10MG daily PRN. * Adult immunization - Administer Prevnar 13, Pneumovax 23, Fluzone as necessary. * DVT prophylaxis - Done with Eliquis. * Hypertension - Lisinopril 15MG daily, Amlodipine 10MG daily. * Stroke - Resumed Aspirin 81MG 06/16/2019. * GERD - Famotidine 20MG daily. * Vascular dementia - Galantamine 4MG BID. * Nutrition - Glucerna 120ML 4x/day. * Migraine - Naproxen 500MG daily PRN. * Hyperlipidemia - Rosuvastatin 10MG QMOFR. * Depression - Sertraline 50MG daily. * Vitamin E deficiency - Vitamin E 400IU daily. * Skin irritation - Eucerin BID, Calmoseptine BID. * Tinea Corporis Nystatin powder BID.
[2019-06-24] MEDS: Aspirin 81 MG TAB.CHEW PO (21:16)
[2019-06-25] MEDS: Menthol/Lanolin/Calamine/Znox 113 GM Tube 1 APPLIC TOPICAL ×2 (05:32→17:47)
[2019-06-25] MEDS: Nystatin Powder 15gm Bottle 1 APPLIC TOPICAL ×2 (05:34→21:01)
[2019-06-25] MEDS: Famotidine 20 MG Tablet PO (05:36)
[2019-06-25] MEDS: amLODIPine 10 MG Tablet PO (05:36)
[2019-06-25] MEDS: Polyethylene Glycol 3350 17 GM PACKET PO (05:36)
[2019-06-25] MEDS: Sertraline 50 MG Tablet PO (05:36)
[2019-06-25] MEDS: Senna/Docusate Sodium 1 Tablet 2 TABLET PO ×2 (05:36→17:48)
[2019-06-25] MEDS: Acetaminophen 500 MG Tablet 1000 MG PO ×3 (05:36→20:59)
[2019-06-25] MEDS: Lisinopril 5 MG Tablet 15 MG PO (05:37)
[2019-06-25 05:42] VITALS: PULSE 62; RESP 16; O2SAT 95
[2019-06-25] MEDS: Galantamine Hydrobromide 4 MG Tablet PO ×2 (07:49→17:48)
[2019-06-25] MEDS: Vitamin E 400 UNITS Capsule PO (07:49)
[2019-06-25 16:00] VITALS: BP 133/71; PULSE 65; RESP 16; TEMP 36.8; O2SAT 94
--- NOTE | 2019-06-25 20:39 | NURSING ---
Pt forget vehicle sanchez and cellphone in the pt room. just stopped back on the unit and received sanchez and cellphone.
[2019-06-25] MEDS: Aspirin 81 MG TAB.CHEW PO (20:59)
[2019-06-26] MEDS: Menthol/Lanolin/Calamine/Znox 113 GM Tube 1 APPLIC TOPICAL ×2 (04:49→17:54)
[2019-06-26] MEDS: Lisinopril 5 MG Tablet 15 MG PO (04:50)
[2019-06-26] MEDS: Sertraline 50 MG Tablet PO (04:50)
[2019-06-26] MEDS: amLODIPine 10 MG Tablet PO (04:50)
[2019-06-26] MEDS: Senna/Docusate Sodium 1 Tablet 2 TABLET PO (04:50)
[2019-06-26] MEDS: Polyethylene Glycol 3350 17 GM PACKET PO (04:51)
[2019-06-26] MEDS: Nystatin Powder 15gm Bottle 1 APPLIC TOPICAL ×2 (04:52→20:33)
[2019-06-26] MEDS: Famotidine 20 MG Tablet PO (04:52)
[2019-06-26] MEDS: Acetaminophen 500 MG Tablet 1000 MG PO ×3 (05:01→20:32)
[2019-06-26] MEDS: Galantamine Hydrobromide 4 MG Tablet PO ×2 (09:43→17:48)
[2019-06-26] MEDS: Vitamin E 400 UNITS Capsule PO (09:43)
[2019-06-26 15:32] VITALS: BP 108/60; PULSE 70; RESP 18; TEMP 36.8; O2SAT 98
[2019-06-26] MEDS: Aspirin 81 MG TAB.CHEW PO (20:32)
[2019-06-27] MEDS: Acetaminophen 500 MG Tablet 1000 MG PO ×3 (05:47→21:36)
[2019-06-27] MEDS: Senna/Docusate Sodium 1 Tablet 2 TABLET PO (05:47)
[2019-06-27] MEDS: Lisinopril 5 MG Tablet 15 MG PO (05:47)
[2019-06-27] MEDS: Sertraline 50 MG Tablet PO (05:47)
[2019-06-27] MEDS: amLODIPine 10 MG Tablet PO (05:47)
[2019-06-27] MEDS: Famotidine 20 MG Tablet PO (05:47)
[2019-06-27] MEDS: Polyethylene Glycol 3350 17 GM PACKET PO (05:48)
[2019-06-27] MEDS: Menthol/Lanolin/Calamine/Znox 113 GM Tube 1 APPLIC TOPICAL ×2 (05:49→17:02)
[2019-06-27] MEDS: Nystatin Powder 15gm Bottle 1 APPLIC TOPICAL ×2 (05:49→21:37)
[2019-06-27] MEDS: Vitamin E 400 UNITS Capsule PO (08:26)
[2019-06-27] MEDS: Galantamine Hydrobromide 4 MG Tablet PO ×2 (08:26→16:59)
[2019-06-27 15:29] VITALS: BP 113/60; PULSE 60; RESP 18; TEMP 36.9; O2SAT 95
[2019-06-27] MEDS: Aspirin 81 MG TAB.CHEW PO (21:36)
--- NOTE | 2019-06-27 21:37 | PCA ---
This SECURITY SYSTEMS TECHNICIAN offered patient shower tonight, and patient said he would rather wait until the morning to get a shower. HS care was completed
[2019-06-28 06:20] VITALS: BP 145/76; PULSE 56; RESP 18; TEMP 36.6; O2SAT 93
[2019-06-28] MEDS: Menthol/Lanolin/Calamine/Znox 113 GM Tube 1 APPLIC TOPICAL ×2 (06:24→17:45)
[2019-06-28] MEDS: Nystatin Powder 15gm Bottle 1 APPLIC TOPICAL ×2 (06:25→21:59)
[2019-06-28] MEDS: amLODIPine 10 MG Tablet PO (06:25)
[2019-06-28] MEDS: Acetaminophen 500 MG Tablet 1000 MG PO ×3 (06:25→21:59)
[2019-06-28] MEDS: Famotidine 20 MG Tablet PO (06:25)
[2019-06-28] MEDS: Sertraline 50 MG Tablet PO (06:26)
[2019-06-28] MEDS: Lisinopril 5 MG Tablet 15 MG PO (06:26)
[2019-06-28] MEDS: Vitamin E 400 UNITS Capsule PO (08:15)
[2019-06-28] MEDS: Galantamine Hydrobromide 4 MG Tablet PO ×2 (08:15→17:44)
[2019-06-28 10:00] VITALS: PULSE 83; RESP 18; O2SAT 93
[2019-06-28 15:46] VITALS: BP 112/60; PULSE 63; RESP 17; TEMP 37.1; O2SAT 94
[2019-06-28] MEDS: Aspirin 81 MG TAB.CHEW PO (22:00)
--- NOTE | 2019-06-29 03:32 | NURSING ---
Pt refusing CPAP this shift.
[2019-06-29 05:21] VITALS: BP 148/76; PULSE 63; RESP 18; TEMP 36.6; O2SAT 94
[2019-06-29] MEDS: Menthol/Lanolin/Calamine/Znox 113 GM Tube 1 APPLIC TOPICAL ×2 (05:25→18:02)
[2019-06-29] MEDS: Famotidine 20 MG Tablet PO (05:26)
[2019-06-29] MEDS: Lisinopril 5 MG Tablet 15 MG PO (05:26)
[2019-06-29] MEDS: amLODIPine 10 MG Tablet PO (05:26)
[2019-06-29] MEDS: Sertraline 50 MG Tablet PO (05:26)
[2019-06-29] MEDS: Nystatin Powder 15gm Bottle 1 APPLIC TOPICAL ×2 (05:26→21:22)
[2019-06-29] MEDS: Acetaminophen 500 MG Tablet 1000 MG PO ×3 (05:26→21:20)
[2019-06-29] MEDS: Vitamin E 400 UNITS Capsule PO (09:27)
[2019-06-29] MEDS: Galantamine Hydrobromide 4 MG Tablet PO ×2 (09:27→18:00)
[2019-06-29] MEDS: Naproxen 500 MG Tablet PO (11:10)
[2019-06-29 15:41] VITALS: BP 123/66; PULSE 66; RESP 18; TEMP 36.6; O2SAT 96
[2019-06-29 21:00] VITALS: PULSE 68; RESP 16; O2SAT 97
[2019-06-29] MEDS: Aspirin 81 MG TAB.CHEW PO (21:20)
[2019-06-30] MEDS: Famotidine 20 MG Tablet PO (05:44)
[2019-06-30] MEDS: Acetaminophen 500 MG Tablet 1000 MG PO ×3 (05:44→21:08)
[2019-06-30] MEDS: amLODIPine 10 MG Tablet PO (05:44)
[2019-06-30] MEDS: Senna/Docusate Sodium 1 Tablet 2 TABLET PO (05:44)
[2019-06-30] MEDS: Sertraline 50 MG Tablet PO (05:44)
[2019-06-30] MEDS: Lisinopril 5 MG Tablet 15 MG PO (05:44)
[2019-06-30] MEDS: Menthol/Lanolin/Calamine/Znox 113 GM Tube 1 APPLIC TOPICAL ×2 (05:45→17:30)
[2019-06-30] MEDS: Nystatin Powder 15gm Bottle 1 APPLIC TOPICAL ×2 (05:50→21:08)
[2019-06-30] MEDS: Vitamin E 400 UNITS Capsule PO (08:13)
[2019-06-30] MEDS: Galantamine Hydrobromide 4 MG Tablet PO ×2 (08:13→17:27)
[2019-06-30 16:00] VITALS: BP 122/66; PULSE 84; RESP 18; TEMP 36.6; O2SAT 96
[2019-06-30] MEDS: Aspirin 81 MG TAB.CHEW PO (21:09)
[2019-07-01] MEDS: Nystatin Powder 15gm Bottle 1 APPLIC TOPICAL ×2 (05:58→20:01)
[2019-07-01] MEDS: Menthol/Lanolin/Calamine/Znox 113 GM Tube 1 APPLIC TOPICAL ×2 (05:58→17:25)
[2019-07-01] MEDS: Polyethylene Glycol 3350 17 GM PACKET PO (05:59)
[2019-07-01] MEDS: Lisinopril 5 MG Tablet 15 MG PO (05:59)
[2019-07-01] MEDS: Senna/Docusate Sodium 1 Tablet 2 TABLET PO ×2 (06:00→17:25)
[2019-07-01] MEDS: Famotidine 20 MG Tablet PO (06:00)
[2019-07-01] MEDS: Sertraline 50 MG Tablet PO (06:00)
[2019-07-01] MEDS: Acetaminophen 500 MG Tablet 1000 MG PO ×3 (06:00→20:02)
[2019-07-01] MEDS: amLODIPine 10 MG Tablet PO (06:01)
[2019-07-01] MEDS: Vitamin E 400 UNITS Capsule PO (08:06)
[2019-07-01] MEDS: Galantamine Hydrobromide 4 MG Tablet PO ×2 (08:06→17:24)
[2019-07-01] MEDS: oxyCODONE 5 MG Tablet PO (09:48)
[2019-07-01 15:42] VITALS: BP 111/67; PULSE 58; RESP 18; TEMP 36.9; O2SAT 96
[2019-07-01 20:00] VITALS: PULSE 62; RESP 16; O2SAT 98
[2019-07-01] MEDS: Aspirin 81 MG TAB.CHEW PO (20:02)
--- NOTE | 2019-07-01 22:42 | PCA ---
MAINTENANCE TECHNICIAN offered shower and patient stated they would rather get it in the morning. ADLs are scheduled for patient with therapy in the AM
[2019-07-02] MEDS: Menthol/Lanolin/Calamine/Znox 113 GM Tube 1 APPLIC TOPICAL ×2 (05:41→17:34)
[2019-07-02] MEDS: Polyethylene Glycol 3350 17 GM PACKET PO (05:42)
[2019-07-02] MEDS: Lisinopril 5 MG Tablet 15 MG PO (05:43)
[2019-07-02] MEDS: Senna/Docusate Sodium 1 Tablet 2 TABLET PO ×2 (05:43→17:33)
[2019-07-02] MEDS: amLODIPine 10 MG Tablet PO (05:44)
[2019-07-02] MEDS: Acetaminophen 500 MG Tablet 1000 MG PO ×3 (05:44→20:34)
[2019-07-02] MEDS: Sertraline 50 MG Tablet PO (05:44)
[2019-07-02] MEDS: Famotidine 20 MG Tablet PO (05:45)
[2019-07-02] MEDS: Nystatin Powder 15gm Bottle 1 APPLIC TOPICAL ×2 (05:45→20:35)
[2019-07-02] MEDS: Vitamin E 400 UNITS Capsule PO (07:51)
[2019-07-02] MEDS: Galantamine Hydrobromide 4 MG Tablet PO ×2 (07:51→17:33)
[2019-07-02 10:00] VITALS: PULSE 72; RESP 18; O2SAT 94
--- NOTE | 2019-07-02 13:53 | CASEMGMT ---
Social Work Met with patient and about DC plans. IDT recommending 24/ supervision and DC home 07/09. and pt agree. does not leave pt home alone and has ordered gait belts. No DME needs. Requesting [facility] PT/OT and possibly continue after with [facility] outpatient therapy. Referral made to [facility]. Plan: DC home 07/09 with [facility] PT/OT. No DME needs. Alissa Pacheco, SPEARER INSURANCE ADJUSTER
[2019-07-02 16:00] VITALS: BP 127/70; PULSE 64; RESP 16; TEMP 37.1; O2SAT 92
--- NOTE | 2019-07-02 20:11 | PCM.DC ---
You will use the following diet at home:: No restrictions, Regular Your food should be the consistency of: Regular Your liquids should be the consistency of: Regular/Thin Discharge Activity: Return to Normal Activity, May Shower, Use Walker Weight Bearing Status: Weight bearing as tolerated Call your doctor if you observe: Fever of 101 or Higher, Inability to urinate, Inability to have a bowel movement, Shortness of breath, Chest pain, Uncontrolled pain Allergies/Adverse Reactions: Allergies chocolate flavor Adverse Reaction (Unknown, Verified 05/11/19 17:38) Other headache Pork/Porcine Containing Products Adverse Reaction (Unknown, Verified 05/11/19 17:38) Other headache atorvastatin [From Lipitor] Adverse Reaction (Verified 05/11/19 17:38) Other stomach issues oxybutynin Adverse Reaction (Verified 05/11/19 13:09) Other Medications to take at Discharge Aspirin [Aspirin, Baby] 81 mg PO QHS 06/12/17 Multivit-Min/Folic Acid/Biotin [Hair, Skin and Nails Caplet] 1 each PO DAILY 07/30/17 [place]-3/Dha/Epa/Fish Oil [Fish Oil [place]-3 EC 1,200 mg] 1 each PO DAILY 07/30/17 Vitamin E (Dl,Tocopheryl Acet) [Vitamin E] 400 units PO DAILY 07/30/17 Rosuvastatin Calcium [Crestor] 10 mg PO MOFR 05/11/19 Sumatriptan Succ/Naproxen Sod [Treximet 85-500 mg Tablet] 1 ea PO DAILY PRN 05/11/19 Galantamine Hbr [Razadyne] 4 mg PO BIDCM 05/14/19 Acetaminophen [Tylenol] 1,000 mg PO Q8 05/31/19 Lisinopril [Zestril] 10 mg PO DAILY 05/31/19 Menthol/Lanolin/Calamine/Znox [Calmoseptine Ointment] 1 applic TOPICAL BID 05/31/19 Amlodipine Besylate [Norvasc] 10 mg PO DAILY #30 tab 07/02/19 Emollient Combination No.72 [Eucerin Intensive Repair] 1 applic TOPICAL 0600,2200 lotion 07/02/19 Famotidine [Pepcid] 20 mg PO DAILY #30 tab 07/02/19 Nystatin Powder [Mycostatin Powder] 1 applic TOPICAL 0600,2200 bottle 07/02/19 Oxycodone [Oxyir] 5 mg PO Q4H PRN PRN 7 Days #42 tablet 07/02/19 Polyethylene Glycol 3350 [Miralax] 17 gm PO DAILY #30 packet 07/02/19 Sertraline HCl [Zoloft] 50 mg PO DAILY #30 tab 07/02/19 The following prescriptions were given: Polyethylene Glycol 3350 [Miralax] 17 gm PO DAILY #30 packet Transmission Status: Pending to [address] Amlodipine Besylate [Norvasc] 10 mg PO DAILY #30 tab Transmission Status: Pending to [address] Oxycodone [Oxyir] 5 mg PO Q4H PRN PRN 7 Days #42 tablet PRN Reason: Pain Transmission Status: Received by [address] Famotidine [Pepcid] 20 mg PO DAILY #30 tab Transmission Status: Pending to [address] Sertraline HCl [Zoloft] 50 mg PO DAILY #30 tab Transmission Status: Pending to [address] Primary Care Physician: Gildardo Catherine MD [Primary Care Provider] - Please follow up with your Primary Care Physician in: 1 week. Test Results: Test results from this visit will be discussed in further detail at your follow-up appointment, if applicable. Please Follow Up With: Davy Myers MD When: 4 weeks Proposed Discharge Date: 07/09/19
--- NOTE | 2019-07-02 20:13 | PCM.DC.SUM ---
Discharge Date and Diagnosis Date of Admission: 05/31/19 Date of Discharge: 07/09/19 - Secondary Discharge Diagnosis Chronic Problems (Last Reviewed 02/01/18 @ 06:56 by Royer Maxwell MD) Vascular dementia (Chronic) Cervical spinal stenosis (Chronic) Left hemiparesis (Chronic) Tongue cancer (Chronic) Obstructive sleep apnea (Chronic) Hyperlipidemia (Chronic) Overactive bladder (Chronic) Migraine (Chronic) Diabetes mellitus type 2 in nonobese (Chronic) Urinary incontinence (Chronic) Cerebrovascular disease (Chronic) Stroke (Chronic) HTN (hypertension) (Chronic) Hospital Course and Treatment Imaging Results: 05/31/19 16:08 Diet: Regular Diet Diet Comments: cut food into bite-size pieces Operations: None Procedures: None Summary of Care Provided: The patient is a 79 year old Male with below past medical history hospitalized for right hip fracture, treated conservatively, admitted to Inpatient Rehabilitation Unit, complicated by depression, admitted to TCU with debility, here for rehabilitation, strengthening, prior to discharge home with . Discharge home with , [facility] for PT/OT. Resident home bound due to right hip fracture. - Physical Exam Vitals/I&O's: Vital Signs Temp Pulse Resp BP Pulse Ox 98.8 F 64 16 127/70 H 92 07/02/19 16:00 07/02/19 16:00 07/02/19 16:00 07/02/19 16:00 07/02/19 16:00 Oxygen Delivery Method Room Air Weight: 95.793 kg Body Mass Index (BMI) 25.9 Finger Stick Blood Glucose 140 Intake and Output for Last 24 Hours 06/30/19 07/01/19 07/02/19 23:59 23:59 23:59 Intake Total 1200 / 1200 1680 / 1680 1300 / 1300 Balance 1200 / 1200 1680 / 1680 1300 / 1300 Current Medications Acetaminophen (Tylenol) 1,000 mg PO Q8 [facility] Last Admin: 07/02/19 13:17 Dose: 1,000 mg Documented by: Amlodipine Besylate (Norvasc) 10 mg PO DAILY [facility] Last Admin: 07/02/19 05:44 Dose: 10 mg Documented by: Aspirin (Aspirin, Baby) 81 mg PO QHS [facility] Last Admin: 07/01/19 20:02 Dose: 81 mg Documented by: Bisacodyl (Dulcolax) 10 mg PO DAILY PRN PRN Reason: Constipation Last Admin: 06/05/19 05:39 Dose: 10 mg Documented by: Calamine/Phenol (Calmoseptine Ointment) 1 applic TOPICAL BID [facility]; Protocol Last Admin: 07/02/19 17:34 Dose: 1 applicatio Documented by: Emollient Ointment (Eucerin Intensive Repair) 1 applic TOPICAL 0600,2200 [facility]; Protocol Last Admin: 07/02/19 05:41 Dose: 1 applicatio Documented by: Famotidine (Pepcid) 20 mg PO DAILY [facility] Last Admin: 07/02/19 05:45 Dose: 20 mg Documented by: Galantamine [facility]brom[facility] ([facility]adyne) [facility] Last Admin: 07/02/19 17:33 Dose: 4 mg Documented by: Lisinopril (Zestril) 15 mg PO DAILY [facility] Last Admin: 07/02/19 05:43 Dose: 15 mg Documented by: Naproxen (Naprosyn) 500 mg PO DAILY PRN PRN Reason: .MIGRAINE SYMPTOMS Last Admin: 06/29/19 11:10 Dose: 500 mg Documented by: Nystatin (Mycostatin Powder) 1 applic TOPICAL 0600,2200 [facility]; Protocol Last Admin: 07/02/19 05:45 Dose: 1 applicatio Documented by: Oxycodone HCl (Oxyir) 5 mg PO Q4H PRN PRN PRN Reason: Pain Last Admin: 07/01/19 09:48 Dose: 5 mg Documented by: Polyethylene Glycol (Miralax) 17 gm PO DAILY [facility] Last Admin: 07/02/19 05:42 Dose: 17 gm Documented by: Rosuvastatin Calcium (Crestor) 10 mg PO MoFr [facility] Last Admin: 07/01/19 20:04 Dose: 10 mg Documented by: Senna/Docusate Sodium (Senokot-S, Leslye-Colace) 2 tablet PO BID [facility] Last Admin: 07/02/19 17:33 Dose: 2 tablet Documented by: Sertraline HCl (Zoloft) 50 mg PO DAILY [facility] Last Admin: 07/02/19 05:44 Dose: 50 mg Documented by: Vitamin E (Vitamin E) [facility] Last Admin: 07/02/19 07:51 Dose: 400 units Documented by: Discharge Diet: No Restrictions Discharge Activity: Return to Normal Activity, May Shower, Use Walker Weight Bearing Status: Weight bearing as tolerated Call your doctor if you observe: Fever of 101 or Higher, Inability to urinate, Inability to have a bowel movement, Shortness of breath, Chest pain, Uncontrolled pain Home Medications: Medications to take at Discharge Aspirin [Aspirin, Baby] 81 mg PO QHS 06/12/17 Multivit-Min/Folic Acid/Biotin [Hair, Skin and Nails Caplet] 1 each PO DAILY 07/30/17 [place]-3/Dha/Epa/Fish Oil [Fish Oil [place]-3 EC 1,200 mg] 1 each PO DAILY 07/30/17 Vitamin E (Dl,Tocopheryl Acet) [Vitamin E] 400 units PO DAILY 07/30/17 Rosuvastatin Calcium [Crestor] 10 mg PO MOFR 05/11/19 Sumatriptan Succ/Naproxen Sod [Treximet 85-500 mg Tablet] 1 ea PO DAILY PRN 05/11/19 Galantamine Hbr [Razadyne] 4 mg PO BIDCM 05/14/19 Acetaminophen [Tylenol] 1,000 mg PO Q8 05/31/19 Lisinopril [Zestril] 10 mg PO DAILY 05/31/19 Menthol/Lanolin/Calamine/Znox [Calmoseptine Ointment] 1 applic TOPICAL BID 05/31/19 Amlodipine Besylate [Norvasc] 10 mg PO DAILY #30 tab 07/02/19 Emollient Combination No.72 [Eucerin Intensive Repair] 1 applic TOPICAL 0600,2200 lotion 07/02/19 Famotidine [Pepcid] 20 mg PO DAILY #30 tab 07/02/19 Nystatin Powder [Mycostatin Powder] 1 applic TOPICAL 0600,2200 bottle 07/02/19 Oxycodone [Oxyir] 5 mg PO Q4H PRN PRN 7 Days #42 tablet 07/02/19 Polyethylene Glycol 3350 [Miralax] 17 gm PO DAILY #30 packet 07/02/19 Sertraline HCl [Zoloft] 50 mg PO DAILY #30 tab 07/02/19 Following Prescrptions Were Given to Patient: Polyethylene Glycol 3350 [Miralax] 17 gm PO DAILY #30 packet [facility]: [facility] Amlodipine Besylate [Norvasc] 10 mg PO DAILY #30 tab Transmission Status: Pending to [facility] Oxycodone [Oxyir] 5 mg PO Q4H PRN PRN 7 Days #42 tablet PRN Reason: Pain Transmission Status: Received by [facility] Famotidine [Pepcid] 20 mg PO DAILY #30 tab Transmission Status: Pending to [facility] Sertraline HCl [Zoloft] 50 mg PO DAILY #30 tab Transmission Status: Pending to [facility] Primary Care Physician: Gildrado Catherine MD [Primary Care Provider] - Please follow up with your Primary Care Physician in: 1 week. Please Follow Up With: Davy Myers MD When: 4 weeks Disposition: Home with Home Health Minutes spent on discharge:: 35 Patient Condition:: Stable Medical Necessity - Tobacco Use Smoking Status: Never smoker Tobacco Use: Non-smoker Meaningful Use Info Meaningful Use Diagnoses (Choose all that apply): None applicable
[2019-07-02] MEDS: Aspirin 81 MG TAB.CHEW PO (20:34)
[2019-07-03] MEDS: Famotidine 20 MG Tablet PO (05:19)
[2019-07-03] MEDS: Acetaminophen 500 MG Tablet 1000 MG PO ×3 (05:19→21:15)
[2019-07-03] MEDS: Polyethylene Glycol 3350 17 GM PACKET PO (05:19)
[2019-07-03] MEDS: Nystatin Powder 15gm Bottle 1 APPLIC TOPICAL ×2 (05:19→21:15)
[2019-07-03] MEDS: Senna/Docusate Sodium 1 Tablet 2 TABLET PO ×2 (05:20→17:53)
[2019-07-03] MEDS: amLODIPine 10 MG Tablet PO (05:20)
[2019-07-03] MEDS: Sertraline 50 MG Tablet PO (05:20)
[2019-07-03] MEDS: Lisinopril 5 MG Tablet 15 MG PO (05:21)
[2019-07-03] MEDS: Menthol/Lanolin/Calamine/Znox 113 GM Tube 1 APPLIC TOPICAL ×2 (05:22→17:57)
[2019-07-03] MEDS: Galantamine Hydrobromide 4 MG Tablet PO ×2 (08:11→17:53)
[2019-07-03] MEDS: Vitamin E 400 UNITS Capsule PO (08:11)
[2019-07-03 15:37] VITALS: BP 132/78; PULSE 69; RESP 18; TEMP 36.8; O2SAT 98
[2019-07-03] MEDS: Aspirin 81 MG TAB.CHEW PO (21:16)
[2019-07-03 21:20] VITALS: PULSE 64; RESP 16; O2SAT 96
--- NOTE | 2019-07-03 21:50 | PCA ---
WELT RANDER has noticed patient was a bit more confused than normal. RN Westley and HISTORY TEACHER Rajan were notified.
[2019-07-04] MEDS: Senna/Docusate Sodium 1 Tablet 2 TABLET PO ×2 (05:18→16:42)
[2019-07-04] MEDS: Sertraline 50 MG Tablet PO (05:18)
[2019-07-04] MEDS: Famotidine 20 MG Tablet PO (05:18)
[2019-07-04] MEDS: amLODIPine 10 MG Tablet PO (05:19)
[2019-07-04] MEDS: Acetaminophen 500 MG Tablet 1000 MG PO ×2 (05:19→14:50)
[2019-07-04] MEDS: Nystatin Powder 15gm Bottle 1 APPLIC TOPICAL ×2 (05:19→20:45)
[2019-07-04] MEDS: Lisinopril 5 MG Tablet 15 MG PO (05:19)
[2019-07-04] MEDS: Polyethylene Glycol 3350 17 GM PACKET PO (05:20)
[2019-07-04] MEDS: Menthol/Lanolin/Calamine/Znox 113 GM Tube 1 APPLIC TOPICAL ×2 (05:25→16:44)
[2019-07-04] MEDS: Vitamin E 400 UNITS Capsule PO (07:58)
[2019-07-04] MEDS: Galantamine Hydrobromide 4 MG Tablet PO ×2 (07:58→16:42)
[2019-07-04 15:56] VITALS: BP 121/68; PULSE 57; RESP 20; TEMP 36.8; O2SAT 95
[2019-07-04] MEDS: Aspirin 81 MG TAB.CHEW PO (20:43)
[2019-07-05 05:46] VITALS: BP 131/73; PULSE 63
[2019-07-05] MEDS: Senna/Docusate Sodium 1 Tablet 2 TABLET PO ×2 (05:49→18:10)
[2019-07-05] MEDS: Lisinopril 5 MG Tablet 15 MG PO (05:49)
[2019-07-05] MEDS: amLODIPine 10 MG Tablet PO (05:49)
[2019-07-05] MEDS: Famotidine 20 MG Tablet PO (05:49)
[2019-07-05] MEDS: Sertraline 50 MG Tablet PO (05:49)
[2019-07-05] MEDS: Menthol/Lanolin/Calamine/Znox 113 GM Tube 1 APPLIC TOPICAL ×2 (05:52→18:12)
[2019-07-05] MEDS: Nystatin Powder 15gm Bottle 1 APPLIC TOPICAL ×2 (05:53→20:35)
[2019-07-05] MEDS: Polyethylene Glycol 3350 17 GM PACKET PO (05:53)
[2019-07-05 10:00] VITALS: PULSE 86; RESP 18
[2019-07-05] MEDS: Galantamine Hydrobromide 4 MG Tablet PO ×2 (10:19→18:10)
[2019-07-05] MEDS: oxyCODONE 5 MG Tablet PO (10:19)
[2019-07-05] MEDS: Vitamin E 400 UNITS Capsule PO (10:25)
[2019-07-05] MEDS: Naproxen 500 MG Tablet PO (14:37)
[2019-07-05 16:00] VITALS: BP 105/60; PULSE 59; RESP 18; TEMP 37.1; O2SAT 96
[2019-07-05] MEDS: Aspirin 81 MG TAB.CHEW PO (20:34)
[2019-07-06] MEDS: Polyethylene Glycol 3350 17 GM PACKET PO (05:35)
[2019-07-06] MEDS: amLODIPine 10 MG Tablet PO (05:35)
[2019-07-06] MEDS: Famotidine 20 MG Tablet PO (05:36)
[2019-07-06] MEDS: Lisinopril 5 MG Tablet 15 MG PO (05:36)
[2019-07-06] MEDS: Sertraline 50 MG Tablet PO (05:36)
[2019-07-06] MEDS: Senna/Docusate Sodium 1 Tablet 2 TABLET PO ×2 (05:36→17:10)
[2019-07-06] MEDS: Menthol/Lanolin/Calamine/Znox 113 GM Tube 1 APPLIC TOPICAL ×2 (05:37→17:14)
[2019-07-06] MEDS: Nystatin Powder 15gm Bottle 1 APPLIC TOPICAL ×2 (05:37→20:10)
[2019-07-06] MEDS: Galantamine Hydrobromide 4 MG Tablet PO ×2 (08:04→17:09)
[2019-07-06] MEDS: Vitamin E 400 UNITS Capsule PO (08:04)
[2019-07-06 15:28] VITALS: BP 120/69; PULSE 63; RESP 16; TEMP 37.1; O2SAT 96
[2019-07-06] MEDS: Aspirin 81 MG TAB.CHEW PO (20:09)
[2019-07-06 20:13] VITALS: PULSE 64; O2SAT 97
[2019-07-07] MEDS: Lisinopril 5 MG Tablet 15 MG PO (04:58)
[2019-07-07] MEDS: Polyethylene Glycol 3350 17 GM PACKET PO (04:58)
[2019-07-07] MEDS: Menthol/Lanolin/Calamine/Znox 113 GM Tube 1 APPLIC TOPICAL ×2 (04:59→17:48)
[2019-07-07] MEDS: Senna/Docusate Sodium 1 Tablet 2 TABLET PO ×2 (04:59→17:45)
[2019-07-07] MEDS: Nystatin Powder 15gm Bottle 1 APPLIC TOPICAL ×2 (04:59→20:10)
[2019-07-07] MEDS: amLODIPine 10 MG Tablet PO (04:59)
[2019-07-07] MEDS: Sertraline 50 MG Tablet PO (04:59)
[2019-07-07] MEDS: Famotidine 20 MG Tablet PO (04:59)
[2019-07-07] MEDS: Galantamine Hydrobromide 4 MG Tablet PO ×2 (07:42→17:45)
[2019-07-07] MEDS: Vitamin E 400 UNITS Capsule PO (07:42)
[2019-07-07 14:57] VITALS: BP 115/64; PULSE 65; RESP 18; TEMP 36.8; O2SAT 96
[2019-07-07 20:00] VITALS: PULSE 64; O2SAT 96
[2019-07-07] MEDS: Aspirin 81 MG TAB.CHEW PO (20:10)
[2019-07-08] MEDS: amLODIPine 10 MG Tablet PO (05:45)
[2019-07-08] MEDS: Sertraline 50 MG Tablet PO (05:45)
[2019-07-08] MEDS: Senna/Docusate Sodium 1 Tablet 2 TABLET PO ×2 (05:45→16:57)
[2019-07-08] MEDS: Lisinopril 5 MG Tablet 15 MG PO (05:45)
[2019-07-08] MEDS: Famotidine 20 MG Tablet PO (05:45)
[2019-07-08] MEDS: Menthol/Lanolin/Calamine/Znox 113 GM Tube 1 APPLIC TOPICAL ×2 (05:47→16:57)
[2019-07-08] MEDS: Nystatin Powder 15gm Bottle 1 APPLIC TOPICAL ×2 (05:47→20:49)
[2019-07-08] MEDS: Polyethylene Glycol 3350 17 GM PACKET PO (05:48)
[2019-07-08] MEDS: Vitamin E 400 UNITS Capsule PO (08:02)
[2019-07-08] MEDS: Galantamine Hydrobromide 4 MG Tablet PO ×2 (08:02→16:57)
[2019-07-08 16:00] VITALS: BP 133/68; PULSE 64; RESP 18; TEMP 36.7; O2SAT 97
[2019-07-08] MEDS: Aspirin 81 MG TAB.CHEW PO (20:47)
[2019-07-08 20:49] VITALS: PULSE 63; O2SAT 94
[2019-07-09] MEDS: Menthol/Lanolin/Calamine/Znox 113 GM Tube 1 APPLIC TOPICAL (05:55)
[2019-07-09] MEDS: Nystatin Powder 15gm Bottle 1 APPLIC TOPICAL (05:56)
[2019-07-09] MEDS: amLODIPine 10 MG Tablet PO (05:57)
[2019-07-09] MEDS: Sertraline 50 MG Tablet PO (05:57)
[2019-07-09] MEDS: Famotidine 20 MG Tablet PO (05:57)
[2019-07-09] MEDS: Polyethylene Glycol 3350 17 GM PACKET PO (05:57)
[2019-07-09] MEDS: Senna/Docusate Sodium 1 Tablet 2 TABLET PO (05:57)
[2019-07-09] MEDS: Lisinopril 5 MG Tablet 15 MG PO (05:57)
[2019-07-09] MEDS: Vitamin E 400 UNITS Capsule PO (07:58)
[2019-07-09] MEDS: Galantamine Hydrobromide 4 MG Tablet PO (07:58)
[2019-07-09 09:07] VITALS: PULSE 64; RESP 16
[2019-07-09 16:00] VITALS: BP 124/58; PULSE 68; RESP 16; TEMP 36.8; O2SAT 94
== END 2019-07-09 11:00 | disposition home health service (06) | DRG 561 ==
PROVIDERS: Admitting Provider Family Medicine Geriatric Medicine; Family Provider Family Medicine; PCP Family Medicine; Referring Provider Family Medicine Geriatric Medicine; Visit Provider Family Medicine Geriatric Medicine
DX: S72.111D Displaced fracture of greater trochanter of right femur, subsequent encounter for closed fracture with routine healing (principal); W19.XXXD Unspecified fall, subsequent encounter; E11.9 Type 2 diabetes mellitus without complications; I10 Essential (primary) hypertension; G47.33 Obstructive sleep apnea (adult) (pediatric); E78.5 Hyperlipidemia, unspecified; N32.81 Overactive bladder; F32.9 Major depressive disorder, single episode, unspecified; G43.909 Migraine, unspecified, not intractable, without status migrainosus; K21.9 Gastro-esophageal reflux disease without esophagitis; F01.50 Vascular dementia, unspecified severity, without behavioral disturbance, psychotic disturbance, mood disturbance, and anxiety; B35.4 Tinea corporis
CPT/HCPCS: 36415; 80048; 82962; 85025; 92507; 92523; 97110; 97116; 97162; 97166; 97530; 97535; 97802

== ENCOUNTER 2019-07-11 21:58 | Emergency (ER) | payer BC, SELFPAY ==
[2019-05-31 15:54] VITALS: BMI 25.9
[2019-07-11 21:59] VITALS: BP 140/78; PULSE 68; RESP 15; TEMP 36.7; O2SAT 98; BMI 25.7
--- NOTE | 2019-07-11 22:47 | RAD_ITS ---
STUDY: X-RAY - SACRUM/COCCYX REASON FOR EXAM: Male, 79 years old. Fall, tailbone pain TECHNIQUE: 3 view(s) of the sacrum and coccyx were obtained. COMPARISON: None. FINDINGS: Normal bilateral sacroiliac joints. Normal visualized sacral ala and fused sacral bodies. Normal sacrococcygeal junction with a normal angulation. Normal coccygeal segments. The presacral soft tissue structures are unremarkable. There is no demonstrated fracture. RAD/Sacrum-Coccyx min 2 Views IMPRESSION: Normal x-rays of the sacrum and coccyx. Electronically Signed: Shalom Brady MD at 23:24 EST , Service support ,
--- NOTE | 2019-07-11 22:47 | ED.VIS.GEN ---
History of Present Illness Chief Complaint: Fall Narrative: Patient is a 79-year-old male who presents after a fall. He recently had a hairline fracture of his hip. He was admitted to the hospital and then to the TCU. He was recently discharged. He ambulates with a walker. He does have poor mobility at baseline and notes that he does have balance issues. They are working with physical therapy and Occupational Therapy especially with moving backwards or sideways with a walker. He had stepped back from his walker today to take his jacket off and fell against the wall and slid down into a seated position. He complains of pain isolated to his tailbone. No head injury, no loss of consciousness, no extremity injuries, no chest or abdominal pain. Past Medical History - Allergies and Home Meds Allergies/Adverse Reactions: Allergies chocolate flavor Adverse Reaction (Unknown, Verified 07/11/19 22:04) Other headache Pork/Porcine Containing Products Adverse Reaction (Unknown, Verified 07/11/19 22:04) Other headache atorvastatin [From Lipitor] Adverse Reaction (Verified 07/11/19 22:04) Other stomach issues oxybutynin Adverse Reaction (Verified 07/11/19 22:04) Other Primary Care Physician: Gildardo Catherine MD [Primary Care Provider] - Past Medical History: - - Stroke, diabetes, hypertension, high cholesterol Surgical History: total hip arthroplasty - Right hip, hemiarthroplasty., - - Tongue resection. Smoking Status: Former smoker - Family History Paternal Family History: Reports: Stroke Maternal Family History: Reports: No pertinent history Review of Systems All systems negative except as indicated General: Denies: Fever Cardiovascular: Denies: Chest pain Respiratory: Denies: Dyspnea Gastrointestinal: Denies: Abdominal pain Musculoskeletal: Reports: Back pain. Denies: Extremity Pain Skin: Denies: Rash Neurological: Denies: Headache Hematologic: Denies: Easy bruising Allergy: Denies: Uticaria Physical Exam Vital Signs/Narrative: Vital Signs Temp Pulse Resp BP Pulse Ox 07/11/19 21:59 98.0 F 68 15 140/78 H 98 Inital Vital Signs reviewed: Yes General: Well nourished Head: Normocephalic Eyes: EOMI ENT: Moist mucous membranes Neck: Supple Cardiovascular: Regular rate, Regular rhythm Respiratory: No distress, CTA bilaterally Abdomen: Soft, Nontender Back: - - Patient has midline lower lumbar and sacral tenderness, no tenderness at the coccyx Extremities: Nontender Skin: Normal color Neurological: Alert Psychological: Normal affect Diagnostic/Tx/Re-eval Impressions Sacrum and Coccyx X-Ray 07/11/19 22:47 IMPRESSION: Normal x-rays of the sacrum and coccyx. Electronically Signed: Shalom Brady MD at 23:24 EST , Service support , Lumbar Spine X-Ray 07/11/19 23:05 IMPRESSION: Very mild compression fracture of the superior endplate of L4 which was not present on previous MRI and could be acute. Mild multilevel degenerative changes. Electronically Signed: Shalom Brady MD at 23:26 EST , Service support , 07/11/19 22:47 Xray Coccyx [Sacrum-Coccyx min 2 Views] [RAD] Stat 07/11/19 23:05 Lumbar Spine 2 or 3 Views [RAD] Stat - Medical Decision Making X-rays as above notable for very mild compression fracture which is likely acute. This is at L4 which correlates with where the worst of his pain is. However he has been able to ambulate today. I do feel he can be discharged home with analgesics to follow-up as an outpatient. He was given a prescription for tramadol. He understands to return for new or worsening symptoms. Patient discharged. ED Disposition - Plan for ED Patient: Disposition: Home or Assisted Living Diagnosis: Compression fracture of L4 vertebra Instructions: FRACTURE, Vertebral Compression Prescriptions: traMADol [Ultram] 50 mg PO Q6H PRN 3 Days #12 tab PRN Reason: Pain Prescription Printed Referrals: Gildardo Catherine MD [Primary Care Provider] - Davy Myers MD [STAFF PHYSICIAN] -
--- NOTE | 2019-07-11 23:05 | RAD_ITS ---
STUDY: X-RAY - LUMBAR SPINE REASON FOR EXAM: Male, 79 years old. Fall, tailbone pain TECHNIQUE: 3 view(s) of the lumbar spine were obtained. COMPARISON: MRI 07/31/2017 FINDINGS: Normal lumbar lordosis. There is no substantial scoliosis. There is 8 mm anterolisthesis of L4 on L5, otherwise normal alignment of the vertebrae. Very mild compression fracture of the superior endplate of L4 which was not present on the previous MRI. No other suspicion of acute abnormalities. Multilevel relatively mild degenerative changes. There is atherosclerotic calcification of the abdominal aorta without a demonstrated aneurysm. RAD/Lumbar Spine 2 or 3 Views IMPRESSION: Very mild compression fracture of the superior endplate of L4 which was not present on previous MRI and could be acute. Mild multilevel degenerative changes. Electronically Signed: Shalom Brady MD at 23:26 EST , Service support ,
[2019-07-11 23:39] VITALS: BP 155/70; PULSE 64; RESP 17; O2SAT 95
== END 2019-07-12 00:05 | disposition home or self-care (01) ==
PROVIDERS: Emergency Provider Emergency Medicine; PCP Family Medicine
DX: S32.049A Unspecified fracture of fourth lumbar vertebra, initial encounter for closed fracture (principal); W18.39XA Other fall on same level, initial encounter; Y93.89 Activity, other specified; I10 Essential (primary) hypertension; E78.00 Pure hypercholesterolemia, unspecified; Z79.82 Long term (current) use of aspirin; Z87.891 Personal history of nicotine dependence; Z86.73 Personal history of transient ischemic attack (TIA), and cerebral infarction without residual deficits
CPT/HCPCS: 72100; 72220; 99282

== ENCOUNTER 2019-07-24 01:45 | Emergency (ER) | payer BC, SELFPAY ==
--- NOTE | 2019-07-24 01:30 | RAD_ITS ---
STUDY: X-RAY - PELVIS REASON FOR EXAM: Male, 79 years old. Slipped out of bed -- c/o lt side lumbar and pelvis pain TECHNIQUE: One view of the pelvis was obtained. COMPARISON: 05/20/2019. FINDINGS: There are degenerative changes of the visualized lumbar spine. There are atherosclerotic vascular calcifications of the pelvic arteries. There is diffuse demineralization of the osseous structures. There is narrowing with cortical sclerosis and osteophyte formation of the sacroiliac joint consistent with degenerative osteoarthritic changes. Coccyx is not sufficiently visualized. Normal visualized bilateral superior and inferior pubic rami. Normal pubic symphysis. Right total hip arthroplasty appears in anatomic alignment. Normal visualized left femoral head. Normal left acetabulum. There is moderate articular joint space narrowing of the left hip. RAD/Pelvis 1 or 2 Views IMPRESSION: Degenerative changes, mild osteopenia, postsurgical changes and arteriosclerosis. There is no acute displaced fracture or dislocation. Electronically Signed: Bettina Harper MD at 2:42 EST , Service support ,
--- NOTE | 2019-07-24 01:30 | RAD_ITS ---
STUDY: X-RAY - SACRUM/COCCYX REASON FOR EXAM: Male, 79 years old. Slipped out of bed -- c/o lt side lumbar and pelvis pain TECHNIQUE: 4 view(s) of the sacrum and coccyx were obtained. COMPARISON: 07/11/2019 FINDINGS: There is degenerative arthrosis of the bilateral sacroiliac joints. Normal visualized sacral ala and fused sacral bodies. Normal sacrococcygeal junction with a normal angulation. Normal coccygeal segments. The presacral soft tissue structures are unremarkable. Atherosclerosis, right total hip arthroplasty and osteopenia are stable findings. Degenerative changes left hip. Anterolisthesis lower lumbar spine appears stable. RAD/Sacrum-Coccyx min 2 Views IMPRESSION: No acute displaced fracture detected. Osteoporosis, degenerative changes, arteriosclerosis and postsurgical changes. Nondisplaced fracture could be obscured. Electronically Signed: Bettina Harper MD at 2:44 EST , Service support ,
--- NOTE | 2019-07-24 01:30 | RAD_ITS ---
STUDY: X-RAY - LUMBAR SPINE REASON FOR EXAM: Male, 79 years old. Slipped out of bed -- c/o lt side lumbar and pelvis pain TECHNIQUE: 3 view(s) of the lumbar spine were obtained. COMPARISON: 07/11/2019. MRI lumbar spine 07/31/2017. FINDINGS: Normal lumbar lordosis. There is no substantial scoliosis. Stable anterior listhesis L4 on L5. Mild compression deformity along the superior endplate L4 without significant interval change. There is diffuse demineralization with multi-level endplate spondylosis. There is multi-level degenerative disc disease with multi-level disc space narrowing. Significant facet arthropathy, neural foraminal narrowing L5-S1, less L4-5 unchanged since prior exam. There is atherosclerotic calcification of the abdominal aorta without a demonstrated aneurysm. RAD/Lumbar Spine 2 or 3 Views IMPRESSION: Degenerative changes of the spine, as detailed above. Compression injury L4 along superior endplate stable since 07/11/2019 not visualized 2017. Stable anterior listhesis L4 on L5. Electronically Signed: Bettina Harper MD at 2:48 EST , Service support ,
--- NOTE | 2019-07-24 03:49 | ED.VIS.GEN ---
History of Present Illness Chief Complaint: Fall Detail of Chief Complaint: Fall with back pain Informant: Patient, Family Onset: Today Current Severity: Mild Maximum Severity: Mild Narrative: Patient had a recent hospital stay with a hairline fracture of his right proximal femur. On the he had a fall at home and suffered a compression fracture to L4. Tonight the patient went to get up from the side of the bed and slipped sliding off the bed and onto the floor. He is complaining of increased soreness in his low back. He is currently on Tylenol 3 times a day for his back. He denies any other injury. - Past Medical History (1) Closed right hip fracture Status: Resolved (2) Generalized weakness Status: Chronic (3) Cerebrovascular disease Status: Chronic (4) Cervical spinal stenosis Status: Chronic (5) Diabetes mellitus type 2 in nonobese Status: Chronic (6) HTN (hypertension) Status: Chronic (7) Hyperlipidemia Status: Chronic (8) Migraine Status: Chronic (9) Vascular dementia Status: Chronic Past Medical History - Allergies and Home Meds Allergies/Adverse Reactions: Allergies chocolate flavor Adverse Reaction (Unknown, Verified 07/11/19 22:04) Other headache Pork/Porcine Containing Products Adverse Reaction (Unknown, Verified 07/11/19 22:04) Other headache atorvastatin [From Lipitor] Adverse Reaction (Verified 07/11/19 22:04) Other stomach issues oxybutynin Adverse Reaction (Verified 07/11/19 22:04) Other Primary Care Physician: Gildardo Catherine MD [Primary Care Provider] - Prior records reviewed: Yes Surgical History: total hip arthroplasty - Right hip, hemiarthroplasty., - - Tongue resection. Lives: Spouse/ Significant Other Smoking Status: Former smoker - Family History Paternal Family History: Reports: Stroke Maternal Family History: Reports: No pertinent history Review of Systems General: Denies: Chills, Fever Eyes: Denies: Visual changes - bilaterally ENT: Denies: Bilateral ear pain Cardiovascular: Denies: Chest pain Respiratory: Denies: Dyspnea, Cough Gastrointestinal: Denies: Abdominal pain Musculoskeletal: Reports: Back pain. Denies: Extremity Pain Neurological: Denies: Headache Endocrine: Denies: Polyuria, Polydipsia Allergy: Denies: Uticaria Physical Exam Inital Vital Signs reviewed: Yes General: Well nourished, Well developed Head: Normocephalic ENT: Moist mucous membranes Neck: Supple Cardiovascular: Regular rate, Regular rhythm Respiratory: No distress, CTA bilaterally Abdomen: Soft, Nontender Back: Nontender, Normal Inspection, - - Mild tenderness of the lower sacrum. Extremities: - - No tenderness at the hips. Able to logroll without difficulty. Skin: Normal color Neurological: Alert, Oriented x3 Psychological: Normal affect Diagnostic/Tx/Re-eval X-rays of the lumbar spine, pelvis, sacrum, and coccyx were obtained. L4 compression fracture is stable when compared to prior study. No new fractures noted. - Medical Decision Making Test results discussed with patient and at bedside. They are reassured with these findings. She feels comfortable caring for him at home. ED Disposition - Plan for ED Patient: Disposition: Home or Assisted Living Diagnosis: Back contusion Referrals: Gildardo Catherine MD [Primary Care Provider] -
== END 2019-07-24 03:15 | disposition home or self-care (01) ==
PROVIDERS: Emergency Provider Emergency Medicine; PCP Family Medicine
DX: S30.0XXA Contusion of lower back and pelvis, initial encounter (principal); W06.XXXA Fall from bed, initial encounter; Y93.89 Activity, other specified; Y92.009 Unspecified place in unspecified non-institutional (private) residence as the place of occurrence of the external cause; I10 Essential (primary) hypertension; E78.5 Hyperlipidemia, unspecified; G43.909 Migraine, unspecified, not intractable, without status migrainosus; Z79.82 Long term (current) use of aspirin; Z87.891 Personal history of nicotine dependence
CPT/HCPCS: 72100; 72170; 72220; 99282

== ENCOUNTER → 2019-08-05 09:09 | Outpatient (CLI) | payer BC, SELFPAY ==
[2019-07-11 21:59] VITALS: BMI 25.7
[2019-08-05 10:14] LABS: Absolute Lymphocyte Count 1.57 X10^3/uL (0.83-4.51); Absolute Neutrophil Count 2.7 X10^3/uL (2.0-7.7); Basophil# 0.02 X10^3/uL; Basophil% 0.4 % (0-1); Eosinophil# 0.07 X10^3/uL; Eosinophils% 1.5 % (0-5); Hematocrit 41.1 % (40-54); Hemoglobin 13.5 g/dL (13.0-16.5); Lymphocyte # 1.57 X10^3/ul (4.0); Lymphocyte % 32.7 % (19-41); Mean Corp Hgb Conc 32.8 g/dL (32-36); Mean Corpuscular Hgb 30.3 pg (27.0-32.0); Mean Corpuscular Volume 92.4 fL (80-94); Mean Platelet Vol. 10.2 fl (6.2-12.0); Monocyte% 8.3 % (0-10); NRBC Flagged by Analyzer 0 % (0-5); Neutrophil # 2.73 X10^3/uL (2.7-7.7); Neutrophil % 56.9 % (47-70); Platelet Count 163 K/mm3 (150-450); RBC Distribution Width CV 12.3 % (11.6-14.6); RBC Distribution Width SD 41.7 fl (35.1-43.9); Red Blood Count 4.45 M/mm3 (4.6-6.2); White Blood Count 4.8 K/mm3 (4.4-11.0)
[2019-08-05 10:33] LABS: Hemoglobin A1c 6.1 % (4.2-6.3)
[2019-08-05 10:42] LABS: ALB/GLOB Ratio 0.8 RATIO (0.9-2.4); AST(SGOT) 16 U/L (15-37); Alanine Aminotransfer ALT/SGPT 27 U/L (16-61); Albumin, Serum 3.7 g/dL (3.2-5.0); Alkaline Phosphatase 111 U/L (45-117); Anion Gap 2 (5-15); BUN 18 mg/dL (7-18); BUN/Creat Ratio 20.9 RATIO (10-20); Calcium,Total 9.4 mg/dL (8.5-10.1); Chloride 103 mmol/L (98-107); Cholesterol 138 mg/dL (200); Creatinine, Serum 0.86 mg/dL (0.70-1.30); EST Glomerular Filtration Rate 91 mL/min (>60); Est Glom Filt Rate - Afr Amer 110 mL/min (>60); Globulin 4.5 g/dL (2.2-4.2); Glucose 99 mg/dL (74-106); High Density Lipoprotein 49 mg/dL; Potassium 3.7 mmol/L (3.5-5.1); Protein, Total 8.2 g/dL (6.4-8.2); Sodium Level 137 mmol/L (136-145); Triglycerides 149 mg/dL; Very Low Density Lipoprotein 30 mg/dL (5-40)
[2019-08-05 11:05] LABS: Vitamin B12 1290 pg/mL (211-911); Vitamin D,25 Hydroxy 35.7 ng/mL (29.95-100.01)
== END ==
PROVIDERS: PCP Family Medicine; Referring Provider Family Medicine; Visit Provider Family Medicine
DX: I10 Essential (primary) hypertension (principal); E53.8 Deficiency of other specified B group vitamins; E55.9 Vitamin D deficiency, unspecified; R73.02 Impaired glucose tolerance (oral); Z86.73 Personal history of transient ischemic attack (TIA), and cerebral infarction without residual deficits
CPT/HCPCS: 36415; 80053; 80061; 82306; 82607; 83036; 85025

== ENCOUNTER → 2019-08-14 11:22 | Outpatient (CLI) | payer BC, SELFPAY ==
--- NOTE | 2019-08-14 11:35 | BD_ITS ---
STUDY: DUAL ENERGY X-RAY ABSORPTIOMETRY / DXA REASON FOR EXAM: Male, 79 years old. RECENT RIGHT HIP FX AND VERTEBRAL COMPRESSION FX''s -- PT HAS HISTORY OF STROKE -- TAKES MULTIVITAMIN -- DOES LITTLE EXERCISE- PHYSICAL THERAPY ONLY -- HX OF RIGHT HIP REPLACEMENT -- UNKNOWN KERRY- PT WAS UNABLE TO STAND TO BE MEASURED- PT STATED HEIGHT WAS 6''4 and quot; TECHNIQUE: Bone Mineral Density (BMD) measurements of both forearms were obtained. COMPARISON: None. FINDINGS: Right Forearm: g/cm2 (0.862) / T-score (-1.4) / Z-score (-0.3) Left Forearm: g/cm2 (0.921) / T-score (-0.8) / Z-score (0.3) BD/Dexa Bone Density/Append Skel IMPRESSION: The patient is considered osteopenic as outlined below according to World Cesar Organization (WHO) criteria with a low fracture risk. Reference Information: The T-score is the number of standard deviations above or below the standard which is normal for young adults at their peak bone mineral density. The World Health Organization (WHO) interprets the T-scores as follows: Above -1 Normal bone density Between -1 and -2.5 Osteopenia Equal to / or below -2.5 Osteoporosis As a practical clinical guideline, osteopenia may be graded as follows: Mild -1 through -1.5 Moderate -1.6 through -2.0 Severe -2.1 through -2.4 The Z-score is the number of standard deviations above or below age-matched controls. A Z-score of less than -1.5 would be considered abnormal. References: 1. NIH Osteoporosis and Related Bone Diseases http://www.osteo.org 2. International Society for Clinical Densitometry http://www.iscd.org 3. National Osteoporosis Foundation http://www.nof.org Electronically Signed: Aleksandr Ji, at 12:34 EST , Service support ,
== END ==
PROVIDERS: PCP Family Medicine; Referring Provider Family Medicine; Visit Provider Family Medicine
DX: M48.50XA Collapsed vertebra, not elsewhere classified, site unspecified, initial encounter for fracture (principal)
CPT/HCPCS: 77081

== ENCOUNTER 2019-10-17 14:34 | Inpatient (IN) | payer MEDICARE, BC, SELFPAY ==
[2019-10-17 14:36] VITALS: BP 124/64; PULSE 61; RESP 16; TEMP 36.6; O2SAT 100; BMI 27.1
--- NOTE | 2019-10-17 14:46 | EKG12_ITS ---
Test Reason : FALL Blood Pressure : / mmHG Vent. Rate : 056 BPM Atrial Rate : 056 BPM P-R Int : 164 ms QRS Dur : 092 ms QT Int : 420 ms P-R-T Axes : -09 024 028 degrees QTc Int : 405 ms Sinus bradycardia Otherwise normal ECG Confirmed by CRISTOBAL SCHULTZ, DANIELA ([id number]), pictures editor MAXI PERALTA ([id number]) on 10/21/2019 10:17:46 AM Referred By: JUNIE Confirmed By:DANIELA JAIN MD
--- NOTE | 2019-10-17 14:47 | RAD_ITS ---
STUDY: X-RAY - PELVIS AND LEFT HIP REASON FOR EXAM: Male, 79 years old. FALL, PAIN TECHNIQUE: 3 views of the pelvis and hip. COMPARISON: None. FINDINGS: There is a non-specific bowel gas pattern. There are atherosclerotic vascular calcifications of the pelvic arteries. There is narrowing with cortical sclerosis and osteophyte formation of the sacroiliac joint consistent with degenerative osteoarthritic changes. Normal bilateral superior and inferior pubic rami. There are degenerative changes of the pubic symphysis with articular narrowing and sclerosis. Normal bilateral ischial tuberosities. Nondisplaced comminuted left intertrochanteric fracture. Status post right total hip replacement. RAD/HIP, UNI W/ Pelvis 2-3 Views IMPRESSION: Nondisplaced comminuted left intertrochanteric fracture. Status post right total hip replacement. Electronically Signed: Aleksandr Ji, at 15:35 EDT , Service support ,
--- NOTE | 2019-10-17 14:52 | ED.DCSUM_ITS ---
History of Present Illness Chief Complaint: Lower Extremity Injury Informant: Patient Onset: Today Context: Sudden Onset Timing: Continuous Current Severity: Moderate Maximum Severity: Severe Narrative: Patient is a 79-year-old male with medical history significant for hypertension the presents to the emergency department after mechanical fall. The patient states that he was trying to go up the stairs. He lost his balance and fell backwards. He landed on his left hip. He did not strike his head or lose consciousness. He states he was unable to stand because of pain. He had prior right hip replacement by Dr. Davy Myers. He has been in his normal state of health otherwise. He presented to the emergency department by squad. Prior similar symptoms: No Recent Illness/Hospitalization: No Past Medical History - Allergies and Home Meds Allergies/Adverse Reactions: Allergies chocolate flavor Adverse Reaction (Unknown, Verified 10/17/19 14:36) Other headache Pork/Porcine Containing Products Adverse Reaction (Unknown, Verified 10/17/19 14:36) Other headache atorvastatin [From Lipitor] Adverse Reaction (Verified 10/17/19 14:36) Other stomach issues oxybutynin Adverse Reaction (Verified 10/17/19 14:36) Other Primary Care Physician: Gildardo Catherine MD [Primary Care Provider] - Prior records reviewed: Yes Past Medical History: - - Hypertension Surgical History: total hip arthroplasty - Right hip, hemiarthroplasty., - - Tongue resection. Smoking Status: Never smoker - Family History Paternal Family History: Reports: Stroke Maternal Family History: Reports: No pertinent history Review of Systems General: Denies: Chills, Fever, Sweats Eyes: Denies: Visual changes - bilaterally, Diplopia ENT: Denies: Rhinorrhea, Sore throat Cardiovascular: Denies: Chest pain, Palpitations Respiratory: Denies: Dyspnea, Cough, Dyspnea on exertion Gastrointestinal: Denies: Abdominal pain, Nausea, Vomiting, Diarrhea, Melena, Hematochezia Genitourinary: Denies: Dysuria, Hematuria, Frequency Musculoskeletal: Denies: Back pain, Extremity Pain Skin: Denies: Rash, Wounds Neurological: Denies: Headache, Weakness, Numbness Physical Exam Vital Signs/Narrative: Vital Signs Temp Pulse Resp BP Pulse Ox 10/17/19 14:36 97.8 F 61 16 124/64 H 100 Inital Vital Signs reviewed: Yes General: Well nourished, Well developed, No Acute Distress Head: Normocephalic, Atraumatic Eyes: Perrl, EOMI ENT: Moist mucous membranes, No rhinorrhea Neck: Supple, Nontender Cardiovascular: Regular rate, Regular rhythm, No murmurs Respiratory: No distress, CTA bilaterally, Chest nontender Abdomen: Soft, Nontender, Nondistended, Normal bowel sounds Back: Nontender, Normal Inspection Extremities: Nontender, No edema, Tenderness - Left hip is shortened and externally rotated. Normal pulses. Neurovascular intact. Skin: Normal color, No rash Neurological: Alert, Oriented x3, Cranial nerves II-XII grossly intact, Normal Strength, Normal Sensation Psychological: Normal affect, Normal Mood Diagnostic/Tx/Re-eval Chest X-Ray - ED: 1 View, No Acute Disease, Chronic Changes Abnormal Lab Results 10/17/19 10/17/19 15:05 15:05 WBC 7.5 RBC 4.15 L Hgb 12.7 L Hct 39.0 L MCV 94.0 MCH 30.6 MCHC 32.6 RDW Std Deviation 44.7 H RDW Coeff of Earline 12.9 Plt Count 169 MPV 10.2 Immature Gran % (Auto) 0.500 Neut % (Auto) 80.2 H Lymph % (Auto) 13.5 L [place] % (Auto) 5.1 Eos % (Auto) 0.3 Baso % (Auto) 0.4 Absolute Neuts (auto) 6.0 Absolute Lymphs (auto) 1.01 Nucleated RBC % 0 Sodium 138 Potassium 3.8 Chloride 103 Carbon Dioxide 29.0 Anion Gap 6 BUN 25 H Creatinine 0.86 Estim Creat Clear Calc 86.91 Est GFR (MDRD) Af Amer 111 Est GFR (MDRD) Non-Af 91 BUN/Creatinine Ratio 29.1 H Glucose 190 H Calcium 9.1 - Rhythm Strip Rhythm Strip: Sinus Rhythm Rate: 80 Ectopy: None - EKG Initial EKG Interpretation: Sinus Rhythm, No Acute Injury Pattern Prior: Unchanged - Medical Decision Making The patient is a 79-year-old male history of prior hip fracture and stroke that presents after mechanical fall. He did not strike his head. He has no change in his chronic mild weakness. Metabolic work-up was pursued. EKG was obtained which was sinus rhythm without acute ischemia. Metabolic work-up was unremarkable. X-ray shows comminuted left intertrochanteric fracture. This was discussed with orthopedics and the patient will be admitted to the hospitalist service for medical clearance for orthopedic repair. Impression 1. Mechanical fall 2. Left closed intertrochanteric fracture ED Disposition - Plan for ED Patient: Referrals: Gildardo Catherine MD [Primary Care Provider] -
[2019-10-17] MEDS: Ondansetron 4 MG/2 ML Vial IV (15:04)
[2019-10-17] MEDS: Morphine 4 MG/ML Syringe IV (15:05)
--- NOTE | 2019-10-17 15:20 | RAD_ITS ---
STUDY: X-RAY CHEST REASON FOR EXAM: Male, 79 years old. FALL, PRE OP TECHNIQUE: Single AP portable view of the chest. COMPARISON: Comparison is made with prior examination dated January 31, 2018. FINDINGS: EKG electrodes are seen. Stable mild increased activity at the lung bases suggestive of scarring. No new infiltrate is seen. There is no demonstrated pleural abnormality. There is mild cardiac enlargement. Normal mediastinum and ann. Normal visualized pulmonary arteries. There is atherosclerotic calcification of the aortic arch with tortuosity. There are diffuse degenerative changes of the visualized thoracic spine. There is degenerative osteoarthritis of the bilateral shoulders. There is no demonstrated abnormality of the visualized soft tissue structures of the upper abdomen. RAD/Chest 1 View (Portable) IMPRESSION: Stable increased linear markings at the lung bases suggestive of scarring. Electronically Signed: Aleksandr Ji, at 15:34 EDT , Service support ,
[2019-10-17 15:22] LABS: Absolute Lymphocyte Count 1.01 X10^3/uL (0.83-4.51); Basophil# 0.03 X10^3/uL; Basophil% 0.4 % (0-1); Eosinophil# 0.02 X10^3/uL; Eosinophils% 0.3 % (0-5); Hemoglobin 12.7 g/dL (13.0-16.5); Lymphocyte # 1.01 X10^3/ul (4.0); Lymphocyte % 13.5 % (19-41); Mean Corp Hgb Conc 32.6 g/dL (32-36); Mean Corpuscular Hgb 30.6 pg (27.0-32.0); Mean Platelet Vol. 10.2 fl (6.2-12.0); Monocyte# 0.38 X10^3/uL; Monocyte% 5.1 % (0-10); NRBC Flagged by Analyzer 0 % (0-5); Neutrophil % 80.2 % (47-70); Platelet Count 169 K/mm3 (150-450); RBC Distribution Width CV 12.9 % (11.6-14.6); RBC Distribution Width SD 44.7 fl (35.1-43.9); Red Blood Count 4.15 M/mm3 (4.6-6.2); White Blood Count 7.5 K/mm3 (4.4-11.0)
[2019-10-17 15:29] LABS: Anion Gap 6 (5-15); BUN 25 mg/dL (7-18); BUN/Creat Ratio 29.1 RATIO (10-20); Calcium,Total 9.1 mg/dL (8.5-10.1); Chloride 103 mmol/L (98-107); Creatinine, Serum 0.86 mg/dL (0.70-1.30); EST Glomerular Filtration Rate 91 mL/min (>60); Est Glom Filt Rate - Afr Amer 111 mL/min (>60); Estimated Creatinine Clearance 86.91 ml/min; Glucose 190 mg/dL (74-106); Potassium 3.8 mmol/L (3.5-5.1); Sodium Level 138 mmol/L (136-145)
[2019-10-17 16:16] VITALS: BP 127/73; PULSE 62; RESP 18; TEMP 36.6; O2SAT 98
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
[2019-10-17 16:31] VITALS: BMI 25.8
[2019-10-17 16:42] VITALS: BP 107/58; PULSE 58; RESP 18; TEMP 36.4; O2SAT 92
[2019-10-17] MEDS: Morphine 2 MG/ML Syringe IV ×2 (17:33→21:13)
[2019-10-17] MEDS: 0.9% Saline Lock 10 ML Syringe IV ×2 (17:34→21:13)
[2019-10-17 17:41] VITALS: O2SAT 99
[2019-10-17 17:44] LABS: Vitamin D,25 Hydroxy 34.2 ng/mL
[2019-10-17] MEDS: Galantamine Hydrobromide 4 MG Tablet PO (18:35)
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
[2019-10-17 18:45] VITALS: BP 142/64; PULSE 76; RESP 16; TEMP 37; O2SAT 95; BMI 26.2
[2019-10-17 20:28] VITALS: BP 140/62; PULSE 71; RESP 16; TEMP 36.9; O2SAT 97
[2019-10-17] MEDS: Nystatin Powder 15gm Bottle 1 APPLIC TOPICAL (21:14)
[2019-10-18] VITALS (14 sets, daily range): BP systolic 122–163; BP diastolic 62–82; PULSE 65–106; RESP 14–18; TEMP 36.4–38.2; O2SAT 93–98; BMI 25.8
[2019-10-18 02:16] LABS: Hemoglobin A1c 6.4 % (4.2-6.3)
[2019-10-18] MEDS: 0.9% Saline Lock 10 ML Syringe IV ×4 (02:35→11:55)
[2019-10-18] MEDS: Morphine 2 MG/ML Syringe IV ×5 (02:35→21:49)
[2019-10-18] MEDS: Nystatin Powder 15gm Bottle 1 APPLIC TOPICAL ×2 (05:45→21:44)
[2019-10-18 06:55] LABS: Absolute Lymphocyte Count 1.24 X10^3/uL (0.83-4.51); Absolute Neutrophil Count 4.8 X10^3/uL (2.0-7.7); Basophil# 0.02 X10^3/uL; Basophil% 0.3 % (0-1); Eosinophil# 0.01 X10^3/uL; Eosinophils% 0.1 % (0-5); Hematocrit 32.5 % (40-54); Hemoglobin 10.7 g/dL (13.0-16.5); Lymphocyte # 1.24 X10^3/ul (4.0); Lymphocyte % 18.6 % (19-41); Mean Corp Hgb Conc 32.9 g/dL (32-36); Mean Corpuscular Hgb 31.1 pg (27.0-32.0); Mean Corpuscular Volume 94.5 fL (80-94); Mean Platelet Vol. 10.4 fl (6.2-12.0); NRBC Flagged by Analyzer 0 % (0-5); Neutrophil # 4.78 X10^3/uL (2.7-7.7); Neutrophil % 71.6 % (47-70); Platelet Count 126 K/mm3 (150-450); RBC Distribution Width CV 13.2 % (11.6-14.6); RBC Distribution Width SD 45.3 fl (35.1-43.9); Red Blood Count 3.44 M/mm3 (4.6-6.2); White Blood Count 6.7 K/mm3 (4.4-11.0)
[2019-10-18 07:12] LABS: Anion Gap 7 (5-15); BUN 27 mg/dL (7-18); BUN/Creat Ratio 30.3 RATIO (10-20); Calcium,Total 8.8 mg/dL (8.5-10.1); Chloride 106 mmol/L (98-107); Creatinine, Serum 0.89 mg/dL (0.70-1.30); EST Glomerular Filtration Rate 88 mL/min (>60); Est Glom Filt Rate - Afr Amer 106 mL/min (>60); Estimated Creatinine Clearance 83.98 ml/min; Glucose 140 mg/dL (74-106); Potassium 4.4 mmol/L (3.5-5.1); Sodium Level 140 mmol/L (136-145)
--- NOTE | 2019-10-18 07:24 | PCM.PN.HOSP ---
Patient Problems: Active and Suspected Problems (Last Reviewed 02/01/18 @ 06:[address] Royer Maxwell MD) Closed left hip fracture (Acute) Reason for Visit: Nondisplaced comminuted left intertrochanteric fracture Subjective: Patient is a 79-year-old gentleman with past medical history including previous CVA with residual left sided hemiparesis hypertension who presented following a fall imaging studies obtained on admission demonstrated Nondisplaced comminuted left intertrochanteric fracture. Admitted to consultation placed to orthopedic surgery with plans for patient to undergo surgical intervention Objective: GENERAL: cooperative HEENT: Atraumatic; EYES; Anicteric, Normal Conjunctiva NECK; supple, normal thyroid, RESPIRATORY: Diminished to auscultation CARDIOVASCULAR: Regular S1 S2, GI: soft, normoactive bowel sounds, : No Renal angle tenderness; EXTREMITIES: No edema, no clubbing, NEURO: Awake; L sided hemiparesis SKIN: No Rash PSYCH; Flat affect Vitals/I&O's: Vital Signs Temp Pulse Resp BP Pulse Ox 99.3 F H 83 18 122/65 H 95 10/18/19 02:33 10/18/19 02:33 10/18/19 02:33 10/18/19 02:33 10/18/19 02:33 Oxygen Delivery Method Room Air Weight: 96.162 kg Body Mass Index (BMI) 25.8 Finger Stick Blood Glucose 140 Intake and Output for Last 24 Hours 10/16/19 10/17/19 10/18/19 23:59 23:59 23:59 Intake Total 120 / 120 Output Total 250 / 450 375 / 375 Balance -250 / -330 -255 / -255 Laboratory Results 10/17/19 15:05: WBC 7.5, RBC 4.15 L, Hgb 12.7 L, Hct 39.0 L, MCV 94.0, MCH 30.6, MCHC 32.6, RDW Std Deviation 44.7 H, RDW Coeff of Earline 12.9, Plt Count 169, MPV 10.2, Immature Gran % (Auto) 0.500, Neut % (Auto) 80.2 H, Lymph % (Auto) 13.5 L, Chase % (Auto) 5.1, Eos % (Auto) 0.3, Baso % (Auto) 0.4, Absolute Neuts (auto) 6.0, Absolute Lymphs (auto) 1.01, Nucleated RBC % 0 10/17/19 15:05: Sodium 138, Potassium 3.8, Chloride 103, Carbon Dioxide 29.0, Anion Gap 6, BUN 25 H, Creatinine 0.86, Estim Creat Clear Calc 86.91, Est GFR (MDRD) Af Amer 111, Est GFR (MDRD) Non-Af 91, BUN/Creatinine Ratio 29.1 H, Glucose 190 H, Calcium 9.1 10/17/19 15:05: Vitamin D 25-Hydroxy 34.2 10/17/19 15:05: Hemoglobin A1c 6.4 H 10/17/19 15:45: Blood Type O POSITIVE, Antibody Screen NEGATIVE 10/18/19 06:26: WBC 6.7, RBC 3.44 L, Hgb 10.7 L, Hct 32.5 L, MCV 94.5 H, MCH 31.1, MCHC 32.9, RDW Std Deviation 45.3 H, RDW Coeff of Earline 13.2, Plt Count 126 L, MPV 10.4, Immature Gran % (Auto) 0.400, Neut % (Auto) 71.6 H, Lymph % (Auto) 18.6 L, Chase % (Auto) 9.0, Eos % (Auto) 0.1, Baso % (Auto) 0.3, Absolute Neuts (auto) 4.8, Absolute Lymphs (auto) 1.24, Nucleated RBC % 0 10/18/19 06:26: Sodium 140, Potassium 4.4, Chloride 106, Carbon Dioxide 27.0, Anion Gap 7, BUN 27 H, Creatinine 0.89, Estim Creat Clear Calc 83.98, Est GFR (MDRD) Af Amer 106, Est GFR (MDRD) Non-Af 88, BUN/Creatinine Ratio 30.3 H, Glucose 140 H, Calcium 8.8 Current Medications Acetaminophen (Tylenol) 650 mg PO Q6H PRN PRN PRN Reason: Pain Score 1-10/Temp > 100.7 F Amlodipine Besylate (Norvasc) 5 mg PO DAILY [facility] Cholecalciferol (Vitamin D (25mcg)) 2,000 unit PO DAILY [facility] Cyanocobalamin (Vitamin B12) 1,000 mcg PO QODAY MIROSLAVA Dextrose (D50w Syringe) 0 gm IV X1 PRN; Protocol PRN Reason: Hypoglycemia Emollient Ointment (Eucerin Intensive Repair) 1 applic TOPICAL 0600,2200 [facility]; Protocol Last Admin: 10/18/19 05:46 Dose: 1 applicatio Documented by: Galantamine Hydrobromide (Razadyne) 4 mg PO BIDCM [facility] Last Admin: 10/17/19 18:35 Dose: 4 mg Documented by: Glucagon () 1 mg IM .X1 PRN PRN Reason: Hypoglycemia Sodium Chloride () 250 mls @ 15 mls/hr IV .[id number] PRN PRN Reason: Saline Flush Cefazolin Sodium 2 gm/ Sodium (Chloride) 110 mls @ 150 mls/hr IV X1 ONE Stop: 10/18/19 08:43 Lisinopril (Zestril) 10 mg PO DAILY [facility] Morphine Sulfate () 2 mg IV Q3H PRN PRN PRN Reason: Pain Score 6-10/10 Last Admin: 10/18/19 05:46 Dose: 2 mg Documented by: Nutritional Formula (Lactose Free) (Ensure Enlive) 120 ml PO 4X/DAY [facility] Last Admin: 10/17/19 21:13 Dose: 120 ml Documented by: Nystatin (Mycostatin Powder) 1 applic TOPICAL 0600,2200 [facility]; Protocol Last Admin: 10/18/19 05:45 Dose: 1 applicatio Documented by: [id number] Ethyl Esters (Lovaza) 1 gm PO DAILY [facility] Ondansetron HCl (Zofran) 4 mg IV Q8H PRN PRN PRN Reason: NAUSEA/VOMITING Oxycodone HCl (Oxyir) 5 mg PO Q4H PRN PRN PRN Reason: Pain Score 4-5/10 Oxycodone HCl (Oxyir) 10 mg PO Q4H PRN PRN PRN Reason: Pain Score 6-10/10 Rosuvastatin Calcium (Crestor) 10 mg PO QHS [facility] Last Admin: 10/17/19 21:21 Dose: 10 mg Documented by: Sodium Chloride () 10 - 40 ml IV UD PRN PRN Reason: SALINE FLUSH Last Admin: 10/18/19 05:46 Dose: 10 ml Documented by: Sumatriptan Succinate (Imitrex) 6 mg SC X1 PRN PRN Reason: MIGRAINE SYMPTOMS Vitamin E (Vitamin E) 400 units PO DAILY [facility] Medical Necessity - Tobacco Use Smoking Status: Never smoker Assessment/Plan All Active Problems (Last Reviewed 02/01/18 @ 06:[address] Royer Maxwell MD) Closed right hip fracture (Resolved) Closed left hip fracture (Acute) Patient is a 79-year-old gentleman with past medical history including previous CVA with residual left sided hemiparesis hypertension who presented following a fall imaging studies obtained on admission demonstrated Nondisplaced comminuted left intertrochanteric fracture. Admitted to consultation placed to orthopedic surgery with plans for patient to undergo surgical intervention 1. Acute non-syncopal mechanical fall with resultant Nondisplaced comminuted left intertrochanteric fracture. ?Admitted to regular nursing floor where patient was managed with immobilization pain management with consult placed to orthopedic surgery patient risk panel and SQ IP risk assessment score was estimated to be low. No subsequent medical interventions needed before patient surgical intervention 2. History of acute ischemic CVA in January 2017 -patient is on antiplatelet therapy with aspirin patient has residual left-sided hemiparesis 3. Hypertension -blood pressure controlled, home medications continued with dose adjustment as needed 4. Vitamin D deficiency - On supplement 5. History of vascular dementia ?Supportive care 6. History of cancer of the tongue Currently in remission 7. Dyslipidemia ~patient is on statin therapy, continued at home dose 8. Vitamin B12 deficiency ?Patient is on cyanocobalamin treatment 9. History of migraine headaches ?Patient is on Imitrex as needed 10. Diabetes mellitus type II ?Managed with diet 11. Obstructive sleep apnea ?Patient is on CPAP at night 12. DVT prophylaxis ?SCDs for now with plans to initiate chemoprophylaxis once patient undergo goals his surgical intervention Clinical Impression(s) from Imaging Studies Hip/Pelvis X-Ray 10/17/19 14:47 IMPRESSION: Nondisplaced comminuted left intertrochanteric fracture. Status post right total hip replacement. Electronically Signed: Aleksandr Ji, at 15:35 EDT , Service support , Chest X-Ray 10/17/19 15:20 IMPRESSION: Stable increased linear markings at the lung bases suggestive of scarring. Electronically Signed: Aleksandr Ji, at 15:34 EDT , Service support , Inpatient E&M: [id number] Subs Hosp L3
--- NOTE | 2019-10-18 08:30 | NURSING ---
Jesika called and notified of time for surgery. She states she will come in and that she will bring his cpap and a few other items pt requested. Notified that she may not get to see pt until after surgery-and that she will be unable to come up to unit. Jesika voiced understanding.
--- NOTE | 2019-10-18 09:50 | NURSING ---
This RN called at this time and notified her that patient's surgery will be delayed due to an emergency case and that patient will be scheduled to have his surgery afterwards. states pt was d/c'ed from hospital/ TCU 07/09/2019- d/t falling backwards. She also states she has special depends at home for day and night and that she would be more than happy to bring them in if it makes it easier on us. She states she will [facility] in around an hour or so and states to notify patient that he is being prayed for and thought about by entire family.
--- NOTE | 2019-10-18 10:49 | CASEMGMT ---
Social Work Assessment Referral Date: 10/18/2019 Date of Assessment: 10/18/2019 Reason for consult: Pt at [facility] for left hip fracture Informant: HANDY Personal Status: SW met with pt to complete initial assessment. SW introduced self and role at [facility]. Pt is alert and orientated x3. Pt states that he lives with his in a one story home with three steps to enter with railings. Pt states that he was previously independent with ADLs but states he is not able to drive as pt has history of stroke. PCP is Dr. Alfred and Pharmacy is [facility]. Pt denied DME. Substance Abuse Hx: Pt denied Mental Health History: Pt denied SNF history: Pt denied. SW did review pt's chart and pt has been to [facility] and TCU before. TCU 05/31/2019-06/29/2019. HHC: Pt denied SW spoke with pt regarding discharge plans and informed pt that he will likely need SNF again at discharge due to his hip fracture. Pt states I am returning home at discharge. SW informed pt that after his surgery he will work with PT/OT and then can continue discussion of discharge needs. Pt states understanding. Plan: TBD. Pt wishes to discharge home but may need be able to do so. Pt is scheduled to have surgery tomorrow and then will work with PT/OT. HANDY/ADRIANNE SHAFFER will follow up with pt after surgery. Sarah Luke TRAINING AND DEVELOPMENT ASSISTANT, SENIOR ASIC DESIGN ENGINEER
[2019-10-18 11:10] LABS: Bedside Glucose 132 mg/dL (70-110)
--- NOTE | 2019-10-18 13:58 | NURSING ---
Patient off unit at this time to OR.
[2019-10-18] MEDS: 0.9% Normal Saline 1,000 ML 75 ML IV ×2 (14:03→17:12)
[2019-10-18] MEDS: Cefazolin 2 GM in 0.9% Normal Saline 100 ML IV (15:15)
--- NOTE | 2019-10-18 15:15 | RAD_ITS ---
STUDY: X-RAY -LEFT HIP REASON FOR EXAM: Male, 79 years old. ORIF LEFT HIP TECHNIQUE: Fluoroscopic assistance was provided to Dr. Myers. 6 fluoroscopic views of the left hip are provided on 8 images. COMPARISON: AP pelvis and additional views of the left hip October 17, 2019. FINDINGS: Images demonstrate ORIF of the comminuted intertrochanteric fracture of the left hip by an intramedullary ivan and compression screw. Intramedullary ivan extends from the fracture in the greater trochanter of the femur to the proximal femoral diaphysis, where it is secured by a single transverse metal screw. The compression screw passes in an upward oblique fashion through the intramedullary ivan, across the fracture line, and long axis of the femoral neck to the femoral head. Minimal distraction and angulation of the fragments along the main intertrochanteric fracture line persists. There is mild residual distraction of the lesser trochanter fragment. The left hip joint space is intact. RAD/HIP, UNI W/ Pelvis 2-3 Views IMPRESSION: Fluoroscopic guidance for ORIF of comminuted left intertrochanteric hip fracture with metal hardware, as noted. Electronically Signed: Tim Ya MD at 16:17 EDT , Service support ,
--- NOTE | 2019-10-18 18:30 | PRO.PCM_ITS ---
Procedure Report Date of Procedure: 10/18/19 Preoperative diagnosis: Left hip displaced unstable intertrochanteric fracture Postoperative diagnosis: Same Title of operation: Left hip open reduction internal fixation, intramedullary nail fixation, locked Surgeon: Dr. Davy Myers Tennis Racket Repairer: Lindsay Cooper NP?C Anesthesia: General Medications: Ancef Anesthesiologist: Dr. jennifer Andujar EBL: 50 Complications: None Indications for surgery: Patient is an 79-year-old male sustained a hip fracture yesterday. Patient and their family explained diagnosis and treatment options. Patient evaluated by the medical services. Patient did wish to have surgery. Appropriate informed consent obtained and signed. Findings: Patient had a displaced unstable intertrochanteric hip fracture. They underwent standard reduction, internal fixation using a Alexa short gamma nail. X-rays taken throughout. surgical physician assistant, mihai, was utilized throughout the entire procedure. They were vital to the procedure from beginning to end. They help with patient transfer, patient padding and positioning, fracture reduction, maintenance of fracture reduction, internal fixation of implants, wound closure, bandage application, patient transfer. Without surgical aide, surgical time would have been significantly increased and surgical outcome could have been less optimal. Procedure: Patient was taken to the operating room. Placed under a general anesthetic and transferred to the operating table with the help of the ophthalmic medical assistant. With the help of the ophthalmic medical assistant patient was prepped and padded for surgery. Operative side foot was well-padded and placed in the traction boot. Uninjured lower extremity was abducted and flexed out of harms way. KATIE hose and SCDs utilized. Fluoroscopy was brought in. With the help of the ophthalmic medical assistant and manipulation of the limb, reduction was nicely obtained as verified under AP lateral and oblique fluoroscopic images. . Operative hip/thigh was prepped padded draped in usual orthopedic sterile fashion for the procedure. Longitudinal incision was made just proximal to the greater trochanter. Taken through skin and subcutaneous tissue. Sharp awl was placed on the tip of the greater trochanter. Position verified under AP and lateral fluoroscopic images. This was then taken down inside the bone. Slightly bent ball-tipped guide ivan was then placed from the tip of the greater trochanter into the intra-medullary canal of the femur. Its position verified radiographically. Reamer was then done over the tip of this with the help of the ophthalmic medical assistant holding the soft tissue protector appropriately. Once reaming was done we placed the short 125? angle device over the guidepin. This was easily introduced. Guide ivan removed. Outrigger device was utilized to position a guidepin from the lateral cortex of the femur across the fracture site and into the femoral head in a good position centrally, as noted on AP lateral and oblique fluoroscopic images. This was measured. Appropriate reaming done. Appreciate length lag screw was placed from the lateral cortex of the femur into the femoral head. A small amount of the screw was noted to be protruding laterally as planned. No cartilage penetration of the femoral head noted on any x-ray. Fracture was then compressed with the outrigger device. Proximal cap screw was placed by the ophthalmic medical assistant seated down completely, confirmed, and then loosened one fourth turn. We then used the outrigger device to place distal cross locking screw under standard technique. This was confirmed to be of adequate length in good position on AP and lateral images. Outrigger device removed. Final set of AP and lateral proximal x-rays taken and saved. Incisions thoroughly irrigated. Closing by the ophthalmic medical assistant with deep 0 Vicryl, mid layer 0 Vicryl, inverted 2-0 Vicryl, skin hedy. Puncture wounds closed with inverted 2-0 Vicryl and s taples. Xeroform 4 x 4's ABD tape applied. Patient was awoken from their anesthetic, transferred back to their own bed with the help of the ophthalmic medical assistant and into recovery room in satisfactory condition. Patient will continue to be admitted to the hospital under the hospitalist service. Patient and his family understood increased risk of hospitalization, surgery based on current COVID-19 situation. They did wish to proceed. Patient will be 25% weightbearing. Aspirin for DVT prevention. This note was generated with [employer]ia dictation software. It may contain incorrect words, spelling, and punctuation that were not noted in checking the note before signing.
[2019-10-18] MEDS: amLODIPine 5 MG Tablet PO (18:33)
[2019-10-18] MEDS: Galantamine Hydrobromide 4 MG Tablet PO (18:33)
[2019-10-18] MEDS: Lisinopril 10 MG Tablet PO (18:33)
[2019-10-18] MEDS: Cefazolin 1 GM/50 ML BAG IV (21:43)
[2019-10-18] MEDS: Senna/Docusate Sodium 1 Tablet 2 TABLET PO (21:45)
[2019-10-18] MEDS: Acetaminophen 325 MG Tablet 650 MG PO (21:49)
[2019-10-19 02:10] VITALS: BMI 25.8
[2019-10-19] MEDS: Cefazolin 1 GM/50 ML BAG IV ×2 (03:31→09:39)
[2019-10-19] MEDS: Morphine 2 MG/ML Syringe IV (03:33)
[2019-10-19 03:47] VITALS: O2SAT 94
[2019-10-19] MEDS: 0.9% Normal Saline 1,000 ML 75 ML IV ×2 (04:59→18:26)
[2019-10-19] MEDS: Nystatin Powder 15gm Bottle 1 APPLIC TOPICAL ×2 (04:59→22:24)
[2019-10-19 05:03] VITALS: BMI 25.8
[2019-10-19 08:00] VITALS: BP 136/72; PULSE 78; RESP 16; TEMP 37.1; O2SAT 96
--- NOTE | 2019-10-19 08:05 | PCM.PN.HOSP ---
Patient Problems: Active and Suspected Problems (Last Reviewed 02/01/18 @ 06:[address] Royer Maxwell MD) Closed left hip fracture (Acute) Reason for Visit: Postoperative day 1 following surgery for left hip fracture Subjective: Patient underwent Left hip open reduction internal fixation, intramedullary nail fixation, locked on 10/18/19 on account Left hip displaced unstable intertrochanteric fracture Seen this a.m. patient rates his pain at 8 out of 10. Consult placed to case management to assist with disposition Objective: GENERAL: cooperative HEENT: Atraumatic; EYES; Anicteric, Normal Conjunctiva NECK; supple, normal thyroid, RESPIRATORY: Diminished to auscultation CARDIOVASCULAR: Regular S1 S2, GI: soft, normoactive bowel sounds, : No Renal angle tenderness; EXTREMITIES: No edema, no clubbing, NEURO: Awake; SKIN: No Rash PSYCH; Flat affect Vitals/I&O's: Vital Signs Temp Pulse Resp BP Pulse Ox 99.1 F 106 H 16 148/78 H 94 10/18/19 23:15 10/18/19 22:10 10/18/19 22:10 10/18/19 22:10 10/19/19 03:47 Oxygen Flow Rate (L/min) 2 Oxygen Delivery Method Room Air Weight: 97.7 kg Body Mass Index (BMI) 26.2 Finger Stick Blood Glucose 140 Intake and Output for Last 24 Hours 10/17/19 10/18/19 10/19/19 23:59 23:59 23:59 Intake Total 1640 / 1880 1413.75 / 1413.75 Output Total 250 / 450 1125 / 1475 600 / 600 Balance -250 / -330 515 / 405 813.75 / 813.75 Laboratory Results 10/18/19 11:03: POC Glucose 132 H Current Medications Acetaminophen (Tylenol) 650 mg PO Q6H PRN PRN PRN Reason: Pain Score 1-10/Temp > 100.7 F Last Admin: 10/18/19 21:49 Dose: 650 mg Documented by: Amlodipine Besylate (Norvasc) 5 mg PO DAILY [facility] Last Admin: 10/18/19 18:33 Dose: 5 mg Documented by: Aspirin ([facility]in, Baby) [facility] Cholecalciferol (Vitamin D (25mcg)) 2,000 unit PO DAILY [facility] Last Admin: 10/18/19 08:25 Dose: Not Given Documented by: Cyanocobalamin (Vitamin B12) 1,000 mcg PO QODAY [facility] Last Admin: 10/18/19 08:24 Dose: Not Given Documented by: Dextrose (D50w Syringe) 0 gm IV X1 PRN; Protocol PRN Reason: Hypoglycemia Emollient Ointment (Eucerin Intensive Repair) 1 applic TOPICAL 0600,2200 [facility]; Protocol Last Admin: 10/19/19 04:59 Dose: 1 applicatio Documented by: Galantamine Hydrobromide (Razadyne) 4 mg PO BIDCM [facility] Last Admin: 10/18/19 18:33 Dose: 4 mg Documented by: Glucagon () 1 mg IM .X1 PRN PRN Reason: Hypoglycemia Sodium Chloride () 250 mls @ 15 mls/hr IV .[id number] PRN PRN Reason: Saline Flush Sodium Chloride () 1,000 mls @ 75 mls/hr IV .[id number] [facility] Last Admin: 10/19/19 04:59 Dose: 75 mls/hr Documented by: Cefazolin Sodium () 1 gm in 50 mls @ 150 mls/hr IV Q6H [facility] Stop: 10/19/19 09:34 Last Infusion: 10/19/19 03:53 Dose: Infused Documented by: Lisinopril (Zestril) 10 mg PO DAILY [facility] Last Admin: 10/18/19 18:33 Dose: 10 mg Documented by: Morphine Sulfate () 2 mg IV Q3H PRN PRN PRN Reason: Pain Score 6-10/10 Last Admin: 10/19/19 03:33 Dose: 2 mg Documented by: Nystatin (Mycostatin Powder) 1 applic TOPICAL 0600,2200 [facility]; Protocol Last Admin: 10/19/19 04:59 Dose: 1 applicatio Documented by: [id number] Ethyl Esters (Lovaza) 1 gm PO DAILY [facility] Last Admin: 10/18/19 08:24 Dose: Not Given Documented by: Ondansetron HCl (Zofran) 4 mg IV Q8H PRN PRN PRN Reason: NAUSEA/VOMITING Oxycodone HCl (Oxyir) 5 mg PO Q4H PRN PRN PRN Reason: Pain Score 4-5/10 Oxycodone HCl (Oxyir) 10 mg PO Q4H PRN PRN PRN Reason: Pain Score 6-10/10 Promethazine HCl (Phenergan) 12.5 mg IM Q6H PRN PRN; Protocol PRN Reason: NAUSEA/VOMITING Rosuvastatin Calcium (Crestor) 10 mg PO QHS [facility] Last Admin: 10/18/19 21:44 Dose: 10 mg Documented by: Senna/Docusate Sodium (Senokot-S, Leslye-Colace) 2 tablet PO BID [facility] Last Admin: 10/18/19 21:45 Dose: 2 tablet Documented by: Sodium Chloride () 10 - 40 ml IV UD PRN PRN Reason: SALINE FLUSH Last Admin: 10/18/19 11:55 Dose: 10 ml Documented by: Sumatriptan Succinate (Imitrex) 6 mg SC X1 PRN PRN Reason: MIGRAINE SYMPTOMS Vitamin E (Vitamin E) 400 units PO DAILY [facility] Last Admin: 10/18/19 08:25 Dose: Not Given Documented by: Medical Necessity - Tobacco Use Smoking Status: Never smoker Assessment/Plan All Active Problems (Last Reviewed 02/01/18 @ 06:[address] Royer Maxwell MD) Closed right hip fracture (Resolved) Closed left hip fracture (Acute) Patient is a 79-year-old gentleman with past medical history including previous CVA with residual left sided hemiparesis hypertension who presented following a fall imaging studies obtained on admission demonstrated Nondisplaced comminuted left intertrochanteric fracture. Admitted to consultation placed to orthopedic surgery with plans for patient to undergo surgical intervention 1. Acute non-syncopal mechanical fall with resultant Nondisplaced comminuted left intertrochanteric fracture. ?Admitted to regular nursing floor where patient was managed with immobilization pain management with consult placed to orthopedic surgery patient risk panel and SQ IP risk assessment score was estimated to be low. No subsequent medical interventions needed before patient surgical intervention ?10/19/2019: Patient underwent Left hip open reduction internal fixation, intramedullary nail fixation, locked on 10/18/19 on account Left hip displaced unstable intertrochanteric fracture. Seen this a.m. patient rates his pain at 8 out of 10. Consult placed to case management to assist with disposition 2. History of acute ischemic CVA in January 2017 -patient is on antiplatelet therapy with aspirin patient has residual left-sided hemiparesis 3. Hypertension -blood pressure controlled, home medications continued with dose adjustment as needed 4. Vitamin D deficiency - On supplement 5. History of vascular dementia ?Supportive care 6. History of cancer of the tongue Currently in remission 7. Dyslipidemia ~patient is on statin therapy, continued at home dose 8. Vitamin B12 deficiency ?Patient is on cyanocobalamin treatment 9. History of migraine headaches ?Patient is on Imitrex as needed 10. Diabetes mellitus type II ?Managed with diet 11. Obstructive sleep apnea ?Patient is on CPAP at night 12. DVT prophylaxis ?SCDs for now with plans to initiate chemoprophylaxis once patient undergo goals his surgical intervention Inpatient E&M: 40910 Subs Hosp L2
[2019-10-19 09:30] LABS: Hematocrit 30.2 % (40-54); Hemoglobin 9.8 g/dL (13.0-16.5); Mean Corp Hgb Conc 32.5 g/dL (32-36); Mean Corpuscular Hgb 30.6 pg (27.0-32.0); Mean Corpuscular Volume 94.4 fL (80-94); Mean Platelet Vol. 10.4 fl (6.2-12.0); Platelet Count 109 K/mm3 (150-450); RBC Distribution Width CV 13.2 % (11.6-14.6); RBC Distribution Width SD 45.1 fl (35.1-43.9); White Blood Count 7.7 K/mm3 (4.4-11.0)
[2019-10-19] MEDS: amLODIPine 5 MG Tablet PO (09:39)
[2019-10-19] MEDS: Omega-3 Acid Ethyl Esters 1 GM Capsule PO (09:40)
[2019-10-19] MEDS: Galantamine Hydrobromide 4 MG Tablet PO ×2 (09:40→17:13)
[2019-10-19] MEDS: Senna/Docusate Sodium 1 Tablet 2 TABLET PO ×2 (09:40→22:25)
[2019-10-19] MEDS: Vitamin E 400 UNITS Capsule PO (09:40)
[2019-10-19] MEDS: oxyCODONE 5 MG Tablet PO (09:44)
[2019-10-19] MEDS: Lisinopril 10 MG Tablet PO (09:44)
[2019-10-19] MEDS: Aspirin 81 MG TAB.CHEW PO ×2 (09:44→17:15)
[2019-10-19 09:46] LABS: Anion Gap 8 (5-15); BUN 19 mg/dL (7-18); Calcium,Total 7.8 mg/dL (8.5-10.1); Chloride 106 mmol/L (98-107); Creatinine, Serum 0.86 mg/dL (0.70-1.30); EST Glomerular Filtration Rate 91 mL/min (>60); Est Glom Filt Rate - Afr Amer 110 mL/min (>60); Estimated Creatinine Clearance 86.91 ml/min; Glucose 180 mg/dL (74-106); Potassium 4.2 mmol/L (3.5-5.1); Sodium Level 138 mmol/L (136-145)
[2019-10-19 10:10] VITALS: BMI 25.8
--- NOTE | 2019-10-19 12:55 | PCM.PROGNOTE ---
Patient Problems: Active and Suspected Problems (Last Reviewed 02/01/18 @ 06:[address] Royer Maxwell MD) Closed left hip fracture (Acute) Subjective: The patient was sitting in bed upon examination. Patient denies chest pain, shortness of breath, dizziness, lightheadedness, nausea, vomiting or calf pain. Pain is controlled on medications. No adverse events overnight. Patient states the pain in his left hip is much better. He reports very little pain in the left hip. Objective: Vital signs stable. Patient is afebrile. Patient is able to plantar flex and dorsiflex actively. Sensation is intact to light touch to saphenous, sural, superficial and deep peroneal and tibial nerve distributions. Dressing is clean, dry and intact. Negative Homans bilaterally. Negative signs and symptoms of DVT. - Physical Exam Vitals/I&O's: Vital Signs Temp Pulse Resp BP Pulse Ox 98.7 F 78 16 136/72 H 96 10/19/19 08:00 10/19/19 08:00 10/19/19 08:00 10/19/19 08:00 10/19/19 08:00 Oxygen Flow Rate (L/min) 2 Oxygen Delivery Method Room Air Weight: 97.7 kg Body Mass Index (BMI) 26.2 Finger Stick Blood Glucose 140 Intake and Output for Last 24 Hours 10/17/19 10/18/19 10/19/19 23:59 23:59 23:59 Intake Total 1640 / 1880 1463.75 / 1463.75 Output Total 250 / 450 1125 / 1475 600 / 600 Balance -250 / -330 515 / 405 863.75 / 863.75 General: Cooperative Musculoskeletal: - - Dressing to left hip and thigh. The dressing is clean, dry and intact. Mild tenderness with palpation. Neurological: Sensory exam intact to light touch and pain Psych/Mental Status: Appropriate Laboratory Results 10/19/19 09:14: WBC 7.7, RBC 3.20 L, Hgb 9.8 L, Hct 30.2 L, MCV 94.4 H, MCH 30.6, MCHC 32.5, RDW Std Deviation 45.1 H, RDW Coeff of Earline 13.2, Plt Count 109 L, MPV 10.4 10/19/19 09:14: Sodium 138, Potassium 4.2, Chloride 106, Carbon Dioxide 24.0, Anion Gap 8, BUN 19 H, Creatinine 0.86, Estim Creat Clear Calc 86.91, Est GFR (MDRD) Af Amer 110, Est GFR (MDRD) Non-Af 91, BUN/Creatinine Ratio 22.0 H, Glucose 180 H, Calcium 7.8 L, Magnesium 2.0 Current Medications Acetaminophen (Tylenol) 650 mg PO Q6H PRN PRN PRN Reason: Pain Score 1-10/Temp > 100.7 F Last Admin: 10/18/19 21:49 Dose: 650 mg Documented by: Amlodipine Besylate (Norvasc) 5 mg PO DAILY REPLACED BY [facility] Last Admin: 10/19/19 09:39 Dose: 5 mg Documented by: Aspirin (Aspirin, Baby) 81 mg PO BIDCM REPLACED BY [facility] Last Admin: 10/19/19 09:44 Dose: 81 mg Documented by: Cholecalciferol (Vitamin D (25mcg)) 2,000 unit PO DAILY REPLACED BY [facility] Last Admin: 10/19/19 09:40 Dose: 2,000 unit Documented by: Cyanocobalamin (Vitamin B12) 1,000 mcg PO QODAY REPLACED BY [facility] Last Admin: 10/18/19 08:24 Dose: Not Given Documented by: Dextrose (D50w Syringe) 0 gm IV X1 PRN; Protocol PRN Reason: Hypoglycemia Emollient Ointment (Eucerin Intensive Repair) 1 applic TOPICAL 0600,2200 REPLACED BY [facility]; Protocol Last Admin: 10/19/19 04:59 Dose: 1 applicatio Documented by: Galantamine Hydrobromide (Razadyne) 4 mg PO BIDCM REPLACED BY [facility] Last Admin: 10/19/19 09:40 Dose: 4 mg Documented by: Glucagon () 1 mg IM .X1 PRN PRN Reason: Hypoglycemia Sodium Chloride () 250 mls @ 15 mls/hr IV .[id number] PRN PRN Reason: Saline Flush Sodium Chloride () 1,000 mls @ 75 mls/hr IV .[id number] REPLACED BY [facility] Last Admin: 10/19/19 04:59 Dose: 75 mls/hr Documented by: Lisinopril (Zestril) 10 mg PO DAILY REPLACED BY [facility] Last Admin: 10/19/19 09:44 Dose: 10 mg Documented by: Morphine Sulfate () 2 mg IV Q3H PRN PRN PRN Reason: Pain Score 6-10/10 Last Admin: 10/19/19 03:33 Dose: 2 mg Documented by: Nystatin (Mycostatin Powder) 1 applic TOPICAL 0600,2200 REPLACED BY [facility]; Protocol Last Admin: 10/19/19 04:59 Dose: 1 applicatio Documented by: [id number] Ethyl Esters (Lovaza) 1 gm PO DAILY REPLACED BY [facility] Last Admin: 10/19/19 09:40 Dose: 1 gm Documented by: Ondansetron HCl (Zofran) 4 mg IV Q8H PRN PRN PRN Reason: NAUSEA/VOMITING Oxycodone HCl (Oxyir) 5 mg PO Q4H PRN PRN PRN Reason: Pain Score 4-5/10 Last Admin: 10/19/19 09:44 Dose: 5 mg Documented by: Oxycodone HCl (Oxyir) 10 mg PO Q4H PRN PRN PRN Reason: Pain Score 6-10/10 Promethazine HCl (Phenergan) 12.5 mg IM Q6H PRN PRN; Protocol PRN Reason: NAUSEA/VOMITING Rosuvastatin Calcium (Crestor) 10 mg PO QHS REPLACED BY [facility] Last Admin: 10/18/19 21:44 Dose: 10 mg Documented by: Senna/Docusate Sodium (Senokot-S, Leslye-Colace) 2 tablet PO BID REPLACED BY [facility] Last Admin: 10/19/19 09:40 Dose: 2 tablet Documented by: Sodium Chloride () 10 - 40 ml IV UD PRN PRN Reason: SALINE FLUSH Last Admin: 10/18/19 11:55 Dose: 10 ml Documented by: Sumatriptan Succinate (Imitrex) 6 mg SC X1 PRN PRN Reason: MIGRAINE SYMPTOMS Vitamin E (Vitamin E) 400 units PO DAILY REPLACED BY [facility] Last Admin: 10/19/19 09:40 Dose: 400 units Documented by: Medical Necessity - Tobacco Use Smoking Status: Never smoker Assessment/Plan All Active Problems (Last Reviewed 02/01/18 @ 06:[address] Royer Maxwell MD) Closed right hip fracture (Resolved) Closed left hip fracture (Acute) 1. Status post left hip open reduction internal fixation, intramedullary nail fixation post operative day #1. 2. Continue pain medications: Tylenol, morphine and oxycodone 3. DVT prophylaxis: KATIE hose, SCDs and aspirin 81 mg twice daily. 4. PT/OT: 25% weightbearing on left lower extremity 5. H & H: 0.8/30.2, asymptomatic 6. WBCs: 7.7, 7. Encouraged incentive spirometry. 8. Continue postoperative medical management per medicine. 9: Postoperative drainage: Dressing is clean, dry and intact. 9. Disposition: Patient is orthopedically stable. It is okay for discharge when medically ready. Ortho will be signing off and please contact us if any questions or concerns. He should contact [facility] to schedule a follow-up appointment in 12 to 14 days. The patient should remain 25% weightbearing on the left lower extremity. If he is discharged to a rehab facility we may be able to perform his follow-up appointment via telehealth. The was contacted via phone and provided an update.
[2019-10-19 14:10] VITALS: BMI 25.8
[2019-10-19 16:35] VITALS: BP 133/46; PULSE 94; RESP 16; TEMP 37.1; O2SAT 96
--- NOTE | 2019-10-19 17:19 | CASEMGMT ---
Social Work Consult: [facility] placement Patient with history of dementia and poor historian per nursing staff. Telephone call to patient spouse, Jesika. Introduced self as well as nursing home social worker role. Jesika remembering this nursing home social worker from pervious visits. Jesika agreeable to speaking. Jesika stating to be primary care consultant for patient in the home. Jesika updated on therapy recommendations for continued skilled services for patient at discharge. Jesika stating that first choice would be the Rehab Unit and TCU would be second. Jesika aware that RU might not have an opening and patient would need to qualify for this stay as well. Jesika is agreeable to both RU or TCU, whichever one has an opening when patient is ready for discharge, but if both have an opening and patient qualifies for RU, Jesika would like patient to go there. Active support and listening provided. Telephone call to referral line for RU/TCU, voicemail left to add patient to the list. Social work to continue to follow as needed. Akhil Navarro MSW, PAR[employer]JIT
[2019-10-19 22:17] VITALS: BP 138/68; PULSE 72; RESP 16; TEMP 37.7; O2SAT 96
[2019-10-19 22:30] VITALS: BMI 25.8
[2019-10-20 03:16] VITALS: BP 143/51; PULSE 83; RESP 16; TEMP 36.8; O2SAT 95
[2019-10-20] MEDS: Nystatin Powder 15gm Bottle 1 APPLIC TOPICAL ×2 (06:06→23:19)
[2019-10-20 06:34] LABS: Hematocrit 27.2 % (40-54); Hemoglobin 8.9 g/dL (13.0-16.5); Mean Corp Hgb Conc 32.7 g/dL (32-36); Mean Corpuscular Hgb 30.8 pg (27.0-32.0); Mean Corpuscular Volume 94.1 fL (80-94); Mean Platelet Vol. 10.7 fl (6.2-12.0); Platelet Count 104 K/mm3 (150-450); RBC Distribution Width CV 12.9 % (11.6-14.6); RBC Distribution Width SD 44.5 fl (35.1-43.9); Red Blood Count 2.89 M/mm3 (4.6-6.2); White Blood Count 5.9 K/mm3 (4.4-11.0)
[2019-10-20 06:42] LABS: Anion Gap 4 (5-15); BUN 20 mg/dL (7-18); BUN/Creat Ratio 30.1 RATIO (10-20); Calcium,Total 7.9 mg/dL (8.5-10.1); Chloride 107 mmol/L (98-107); Creatinine, Serum 0.66 mg/dL (0.70-1.30); EST Glomerular Filtration Rate 123 mL/min (>60); Est Glom Filt Rate - Afr Amer 149 mL/min (>60); Estimated Creatinine Clearance 74.74 ml/min; Glucose 145 mg/dL (74-106); Potassium 4.1 mmol/L (3.5-5.1); Sodium Level 138 mmol/L (136-145)
--- NOTE | 2019-10-20 07:12 | PN_ITS ---
Patient Problems: Active and Suspected Problems (Last Reviewed 02/01/18 @ 06:[address] Royer Maxwell MD) Closed left hip fracture (Acute) Reason for Visit: Follow-up ORIF for hip fracture Subjective: Postoperative day 2 patient's pain is tolerable. Plan is for patient to be transferred to retirement facility (TCU) pending insurance precertification possibly on 10/21/2019 Hemoglobin has dropped from 12.7 on admission to 8.9 however he does not meet criteria for Objective: GENERAL: cooperative HEENT: Atraumatic; EYES; Anicteric, Normal Conjunctiva NECK; supple, normal thyroid, RESPIRATORY: Diminished to auscultation CARDIOVASCULAR: Regular S1 S2, GI: soft, normoactive bowel sounds, : No Renal angle tenderness; EXTREMITIES: No edema, no clubbing, NEURO: Awake; SKIN: No Rash PSYCH; Flat affect Vitals/I&O's: Vital Signs Temp Pulse Resp BP Pulse Ox 98.3 F 83 16 143/51 H 95 10/20/19 03:16 10/20/19 03:16 10/20/19 03:16 10/20/19 03:16 10/20/19 03:16 Oxygen Flow Rate (L/min) 2 Oxygen Delivery Method Room Air Weight: 97.7 kg Body Mass Index (BMI) 26.2 Finger Stick Blood Glucose 140 Intake and Output for Last 24 Hours 10/18/19 10/19/19 10/20/19 23:59 23:59 23:59 Intake Total 1640 / 1880 3263.75 / 3263.75 250 / 250 Output Total 1125 / 1475 1250 / 1250 600 / 600 Balance 515 / 405 / 75 -350 / -350 Laboratory Results 10/19/19 09:14: WBC 7.7, RBC 3.20 L, Hgb 9.8 L, Hct 30.2 L, MCV 94.4 H, MCH 30.6, MCHC 32.5, RDW Std Deviation 45.1 H, RDW Coeff of Earline 13.2, Plt Count 109 L, MPV 10.4 10/19/19 09:14: Sodium 138, Potassium 4.2, Chloride 106, Carbon Dioxide 24.0, Anion Gap 8, BUN 19 H, Creatinine 0.86, Estim Creat Clear Calc 86.91, Est GFR (MDRD) Af Amer 110, Est GFR (MDRD) Non-Af 91, BUN/Creatinine Ratio 22.0 H, Glucose 180 H, Calcium 7.8 L, Magnesium 2.0 10/20/19 05:38: WBC 5.9, RBC 2.89 L, Hgb 8.9 L, Hct 27.2 L, MCV 94.1 H, MCH 30.8, MCHC 32.7, RDW Std Deviation 44.5 H, RDW Coeff of Earline 12.9, Plt Count 104 L, MPV 10.7 10/20/19 05:38: Sodium 138, Potassium 4.1, Chloride 107, Carbon Dioxide 27.0, Anion Gap 4 L, BUN 20 H, Creatinine 0.66 L, Estim Creat Clear Calc 74.74, Est GFR (MDRD) Af Amer 149, Est GFR (MDRD) Non-Af 123, BUN/Creatinine Ratio 30.1 H, Glucose 145 H, Calcium 7.9 L Current Medications Acetaminophen (Tylenol) 650 mg PO Q6H PRN PRN PRN Reason: Pain Score 1-10/Temp > 100.7 F Last Admin: 10/18/19 21:49 Dose: 650 mg Documented by: Amlodipine Besylate (Norvasc) 5 mg PO DAILY [facility] Last Admin: 10/19/19 09:39 Dose: 5 mg Documented by: Aspirin (Aspirin, Baby) 81 mg PO BIDCM [facility] Last Admin: 10/19/19 17:15 Dose: 81 mg Documented by: Cholecalciferol (Vitamin D (25mcg)) 2,000 unit PO DAILY [facility] Last Admin: 10/19/19 09:40 Dose: 2,000 unit Documented by: Cyanocobalamin (Vitamin B12) 1,000 mcg PO QODAY [facility] Last Admin: 10/18/19 08:24 Dose: Not Given Documented by: Dextrose (D50w Syringe) 0 gm IV X1 PRN; Protocol PRN Reason: Hypoglycemia Emollient Ointment (Eucerin Intensive Repair) 1 applic TOPICAL 0600,2200 [facility]; Protocol Last Admin: 10/20/19 06:05 Dose: 1 applicatio Documented by: Galantamine Hydrobromide (Razadyne) 4 mg PO BIDCM [facility] Last Admin: 10/19/19 17:13 Dose: 4 mg Documented by: Glucagon () 1 mg IM .X1 PRN PRN Reason: Hypoglycemia Sodium Chloride () 250 mls @ 15 mls/hr IV .[id number] PRN PRN Reason: Saline Flush Sodium Chloride () 1,000 mls @ 75 mls/hr IV .[id number] [facility] Last Admin: 10/19/19 18:26 Dose: 75 mls/hr Documented by: Lisinopril (Zestril) 10 mg PO DAILY [facility] Last Admin: 10/19/19 09:44 Dose: 10 mg Documented by: Morphine Sulfate () 2 mg IV Q3H PRN PRN PRN Reason: Pain Score 6-10/10 Last Admin: 10/19/19 03:33 Dose: 2 mg Documented by: Nutritional Formula (Lactose Free) (Ensure Enlive) 120 ml PO 4X/DAY [facility] Last Admin: 10/19/19 22:25 Dose: 120 ml Documented by: Nystatin (Mycostatin Powder) 1 applic TOPICAL 0600,2200 [facility]; Protocol Last Admin: 10/20/19 06:06 Dose: 1 applicatio Documented by: [id number] Ethyl Esters (Lovaza) 1 gm PO DAILY [facility] Last Admin: 10/19/19 09:40 Dose: 1 gm Documented by: Ondansetron HCl (Zofran) 4 mg IV Q8H PRN PRN PRN Reason: NAUSEA/VOMITING Oxycodone HCl (Oxyir) 5 mg PO Q4H PRN PRN PRN Reason: Pain Score 4-5/10 Last Admin: 10/19/19 09:44 Dose: 5 mg Documented by: Oxycodone HCl (Oxyir) 10 mg PO Q4H PRN PRN PRN Reason: Pain Score 6-10/10 Promethazine HCl (Phenergan) 12.5 mg IM Q6H PRN PRN; Protocol PRN Reason: NAUSEA/VOMITING Rosuvastatin Calcium (Crestor) 10 mg PO QHS [facility] Last Admin: 10/19/19 22:25 Dose: 10 mg Documented by: Senna/Docusate Sodium (Senokot-S, Leslye-Colace) 2 tablet PO BID [facility] Last Admin: 10/19/19 22:25 Dose: 2 tablet Documented by: Sodium Chloride () 10 - 40 ml IV UD PRN PRN Reason: SALINE FLUSH Last Admin: 10/18/19 11:55 Dose: 10 ml Documented by: Sumatriptan Succinate (Imitrex) 6 mg SC X1 PRN PRN Reason: MIGRAINE SYMPTOMS Vitamin E (Vitamin E) 400 units PO DAILY [facility] Last Admin: 10/19/19 09:40 Dose: 400 units Documented by: STROKE Vital Signs/Narrative: Vital Signs Temp Pulse Resp BP Pulse Ox 10/20/19 03:16 98.3 F 83 16 143/51 H 95 Medical Necessity - Tobacco Use Smoking Status: Never smoker Assessment/Plan All Active Problems (Last Reviewed 02/01/18 @ 06:[address] Royer Maxwell MD) Closed right hip fracture (Resolved) Closed left hip fracture (Acute) Patient is a 79-year-old gentleman with past medical history including previous CVA with residual left sided hemiparesis hypertension who presented following a fall imaging studies obtained on admission demonstrated Nondisplaced comminuted left intertrochanteric fracture. Admitted to consultation placed to orthopedic surgery with plans for patient to undergo surgical intervention 1. Acute non-syncopal mechanical fall with resultant Nondisplaced comminuted left intertrochanteric fracture. ?Admitted to regular nursing floor where patient was managed with immobilization pain management with consult placed to orthopedic surgery patient risk panel and SQ IP risk assessment score was estimated to be low. No subsequent medical interventions needed before patient surgical intervention ?10/19/2019: Patient underwent Left hip open reduction internal fixation, intramedullary nail fixation, locked on 10/18/19 on account Left hip displaced unstable intertrochanteric fracture. Seen this a.m. patient rates his pain at 8 out of 10. Consult placed to case management to assist with disposition 2. Anemia Secondary to combination of anemia of chronic disorder as well as acute blood loss anemia following surgery monitoring H&H. Hemoglobin as of 10/20/2019 is 8.6 plan is to continue to monitor transfuse if patient becomes symptomatic or hemoglobin falls below 7 3. Hypertension -blood pressure controlled, home medications continued with dose adjustment as needed 4. Vitamin D deficiency - On supplement 5. History of vascular dementia ?Supportive care 6. History of cancer of the tongue Currently in remission 7. Dyslipidemia ~patient is on statin therapy, continued at home dose 8. Vitamin B12 deficiency ?Patient is on cyanocobalamin treatment 9. History of migraine headaches ?Patient is on Imitrex as needed 10. Diabetes mellitus type II ?Managed with diet 11. Obstructive sleep apnea ?Patient is on CPAP at night 12. History of acute ischemic CVA in January 2017 -patient is on antiplatelet therapy with aspirin patient has residual left-sided hemiparesis 13. DVT prophylaxis -Lovenox Active Medications Acetaminophen (Tylenol) 650 mg PO Q6H PRN PRN PRN Reason: Pain Score 1-10/Temp > 100.7 F Last Admin: 10/18/19 21:49 Dose: 650 mg Documented by: Amlodipine Besylate (Norvasc) 5 mg PO DAILY [facility] Last Admin: 10/19/19 09:39 Dose: 5 mg Documented by: Aspirin (Aspirin, Baby) 81 mg PO BIDCM [facility] Last Admin: 10/19/19 17:15 Dose: 81 mg Documented by: Cholecalciferol (Vitamin D (25mcg)) 2,000 unit PO DAILY [facility] Last Admin: 10/19/19 09:40 Dose: 2,000 unit Documented by: Cyanocobalamin (Vitamin B12) 1,000 mcg PO QODAY [facility] Last Admin: 10/18/19 08:24 Dose: Not Given Documented by: Dextrose (D50w Syringe) 0 gm IV X1 PRN; Protocol PRN Reason: Hypoglycemia Emollient Ointment (Eucerin Intensive Repair) 1 applic TOPICAL 0600,2200 [facility]; Protocol Last Admin: 10/20/19 06:05 Dose: 1 applicatio Documented by: Galantamine Hydrobromide (Razadyne) 4 mg PO BIDCM [facility] Last Admin: 10/19/19 17:13 Dose: 4 mg Documented by: Glucagon () 1 mg IM .X1 PRN PRN Reason: Hypoglycemia Sodium Chloride () 250 mls @ 15 mls/hr IV .[id number] PRN PRN Reason: Saline Flush Sodium Chloride () 1,000 mls @ 75 mls/hr IV .[id number] [facility] Last Admin: 10/19/19 18:26 Dose: 75 mls/hr Documented by: Lisinopril (Zestril) 10 mg PO DAILY [facility] Last Admin: 10/19/19 09:44 Dose: 10 mg Documented by: Morphine Sulfate () 2 mg IV Q3H PRN PRN PRN Reason: Pain Score 6-10/10 Last Admin: 10/19/19 03:33 Dose: 2 mg Documented by: Nutritional Formula (Lactose Free) (Ensure Enlive) 120 ml PO 4X/DAY [facility] Last Admin: 10/19/19 22:25 Dose: 120 ml Documented by: Nystatin (Mycostatin Powder) 1 applic TOPICAL 0600,2200 [facility]; Protocol Last Admin: 10/20/19 06:06 Dose: 1 applicatio Documented by: [id number] Ethyl Esters (Lovaza) 1 gm PO DAILY [facility] Last Admin: 10/19/19 09:40 Dose: 1 gm Documented by: Ondansetron HCl (Zofran) 4 mg IV Q8H PRN PRN PRN Reason: NAUSEA/VOMITING Oxycodone HCl (Oxyir) 5 mg PO Q4H PRN PRN PRN Reason: Pain Score 4-5/10 Last Admin: 10/19/19 09:44 Dose: 5 mg Documented by: Oxycodone HCl (Oxyir) 10 mg PO Q4H PRN PRN PRN Reason: Pain Score 6-10/10 Promethazine HCl (Phenergan) 12.5 mg IM Q6H PRN PRN; Protocol PRN Reason: NAUSEA/VOMITING Rosuvastatin Calcium (Crestor) 10 mg PO QHS [facility] Last Admin: 10/19/19 22:25 Dose: 10 mg Documented by: Senna/Docusate Sodium (Senokot-S, Leslye-Colace) 2 tablet PO BID [facility] Last Admin: 10/19/19 22:25 Dose: 2 tablet Documented by: Sodium Chloride () 10 - 40 ml IV UD PRN PRN Reason: SALINE FLUSH Last Admin: 10/18/19 11:55 Dose: 10 ml Documented by: Sumatriptan Succinate (Imitrex) 6 mg SC X1 PRN PRN Reason: MIGRAINE SYMPTOMS Vitamin E (Vitamin E) 400 units PO DAILY [facility] Last Admin: 10/19/19 09:40 Dose: 400 units Documented by: Inpatient E&M: [id number] [facility] L[facility]
[2019-10-20] MEDS: Vitamin E 400 UNITS Capsule PO (09:47)
[2019-10-20] MEDS: Aspirin 81 MG TAB.CHEW PO ×2 (09:47→16:53)
[2019-10-20] MEDS: Cyanocobalamin 500 MCG Tablet 1000 MCG PO (09:48)
[2019-10-20] MEDS: Galantamine Hydrobromide 4 MG Tablet PO ×2 (09:48→16:54)
[2019-10-20] MEDS: Senna/Docusate Sodium 1 Tablet 2 TABLET PO ×2 (09:48→23:21)
[2019-10-20] MEDS: Omega-3 Acid Ethyl Esters 1 GM Capsule PO (09:50)
[2019-10-20] MEDS: 0.9% Normal Saline 1,000 ML 75 ML IV ×2 (09:50→22:51)
[2019-10-20] MEDS: Lisinopril 10 MG Tablet PO (09:53)
[2019-10-20] MEDS: amLODIPine 5 MG Tablet PO (09:53)
[2019-10-20] MEDS: oxyCODONE 5 MG Tablet PO ×2 (10:25→20:52)
[2019-10-20 10:40] VITALS: BP 135/47; PULSE 78; RESP 16; TEMP 37.1; O2SAT 96
[2019-10-20 10:41] VITALS: RESP 18
[2019-10-20 16:00] VITALS: BP 127/76; PULSE 81; RESP 16; TEMP 36.7; O2SAT 96
[2019-10-20 20:26] VITALS: BP 120/51; PULSE 78; RESP 18; TEMP 37.2; O2SAT 94
[2019-10-21 03:04] VITALS: BP 132/69; PULSE 58; RESP 18; TEMP 36.7; O2SAT 94
[2019-10-21] MEDS: Nystatin Powder 15gm Bottle 1 APPLIC TOPICAL (05:27)
[2019-10-21] MEDS: oxyCODONE 5 MG Tablet PO (05:27)
[2019-10-21 06:39] LABS: Hematocrit 26.1 % (40-54); Hemoglobin 8.6 g/dL (13.0-16.5); Mean Corpuscular Hgb 30.6 pg (27.0-32.0); Mean Corpuscular Volume 92.9 fL (80-94); Platelet Count 103 K/mm3 (150-450); RBC Distribution Width SD 44.4 fl (35.1-43.9); Red Blood Count 2.81 M/mm3 (4.6-6.2); White Blood Count 5.8 K/mm3 (4.4-11.0)
[2019-10-21 07:12] LABS: Anion Gap 5 (5-15); BUN 23 mg/dL (7-18); BUN/Creat Ratio 32.8 RATIO (10-20); Calcium,Total 8.1 mg/dL (8.5-10.1); Chloride 109 mmol/L (98-107); EST Glomerular Filtration Rate 115 mL/min (>60); Est Glom Filt Rate - Afr Amer 140 mL/min (>60); Estimated Creatinine Clearance 74.74 ml/min; Glucose 153 mg/dL (74-106); Potassium 4.1 mmol/L (3.5-5.1); Sodium Level 140 mmol/L (136-145)
[2019-10-21 07:45] VITALS: BP 124/67; PULSE 81; RESP 16; TEMP 36.2; O2SAT 93
[2019-10-21] MEDS: Acetaminophen 325 MG Tablet 650 MG PO (07:58)
[2019-10-21] MEDS: Cyanocobalamin 500 MCG Tablet 1000 MCG PO (07:59)
[2019-10-21] MEDS: Aspirin 81 MG TAB.CHEW PO (07:59)
[2019-10-21] MEDS: Omega-3 Acid Ethyl Esters 1 GM Capsule PO (07:59)
[2019-10-21] MEDS: Galantamine Hydrobromide 4 MG Tablet PO (07:59)
[2019-10-21] MEDS: Vitamin E 400 UNITS Capsule PO (08:00)
[2019-10-21] MEDS: Senna/Docusate Sodium 1 Tablet 2 TABLET PO (08:00)
--- NOTE | 2019-10-21 08:05 | NURSING ---
Pt requested to take all AM meds at this time prior to therapy. Same given.
--- NOTE | 2019-10-21 09:10 | CASEMGMT ---
Addendum entered by Sarah Luke 10/21/19 10:57: HANDY received call from Kisha. Per Kisha she is still waiting for PT/OT to work with pt today to determine if pt would be more appropriate for RU vs TCU. Kisha states she would need to submit to [facility] for pre-cert. HANDY informed Kisha that Medicare Part A is listed as primary and secondary is listed as [employer]. Kisha states she has that [employer] is primary. HANDY placed a call to to [facility] and spoke with Brittany. Brittany states that they have Medicare as Primary for pt. SW waiting for pt to work with PT/OT today. Original Note: Social Work Note SW received call from Kisha with [facility] stating she will have PT/OT evaluate pt to determine if pt will be appropriate for RU or TCU. HANDY reviewed PT/OT notes from weekend, pt was dependent assist of 2. SW waiting for call back. Plan: RU vs TCU, Likely today Sarah Luke JACKSPOOLER, ADOPTION MANAGER
--- NOTE | 2019-10-21 09:18 | PCM.PN.HOSP ---
Patient Problems: Active and Suspected Problems (Last Reviewed 02/01/18 @ 06:[address] Royer Maxwell MD) Closed left hip fracture (Acute) Reason for Visit: Follow-up on left hip ORIF/intramedullary nail fixation Subjective: Patient was seen and examined. Denied any pain. No acute events overnight. No fever or chills. Waiting on insurance precertification for discharge. Vitals/I&O's: Vital Signs Temp Pulse Resp BP Pulse Ox 97.1 F L 81 16 124/67 H 93 10/21/19 07:45 10/21/19 07:45 10/21/19 07:45 10/21/19 07:45 10/21/19 07:45 Oxygen Flow Rate (L/min) 2 Oxygen Delivery Method Room Air Weight: 97.7 kg Body Mass Index (BMI) 26.2 Finger Stick Blood Glucose 140 Intake and Output for Last 24 Hours 10/19/19 10/20/19 10/21/19 23:59 23:59 23:59 Intake Total 3263.75 / 3263.75 3126.25 / 3126.25 200 / 200 Output Total 1250 / 1250 1050 / 1050 Balance / 2076.25 / 2076.25 200 / 200 General: Alert, Oriented x3, Cooperative, No apparent distress HEENT: Atraumatic, PERRLA, EOMI, Normocephalic Oral: Moist Mucosa Neck: Supple Lungs: Clear to auscultation, Normal air movement Cardiovascular: Regular rate, Regular Rhythm, Normal S1, Normal S2, No murmurs Abdomen: Bowel Sounds Present, Soft, Non Tender, Non-Distended, No Hepato-splenomegaly Extremities: No edema Skin: No rashes Musculoskeletal: No Tenderness to Palpation of Joints or Extremities Lymphatic: No Cervical, Supraclavicular, or Inguinal Adenopathy Neurological: Cranial nerves II-XII grossly intact, Neuro grossly intact Psych/Mental Status: Normal Affect, Appropriate Laboratory Results 10/21/19 06:13: WBC 5.8, RBC 2.81 L, Hgb 8.6 L, Hct 26.1 L, MCV 92.9, MCH 30.6, MCHC 33.0, RDW Std Deviation 44.4 H, RDW Coeff of Earline 13.0, Plt Count 103 L, MPV 11.0 10/21/19 06:13: Sodium 140, Potassium 4.1, Chloride 109 H, Carbon Dioxide 26.0, Anion Gap 5, BUN 23 H, Creatinine 0.70, Estim Creat Clear Calc 74.74, Est GFR (MDRD) Af Amer 140, Est GFR (MDRD) Non-Af 115, BUN/Creatinine Ratio 32.8 H, Glucose 153 H, Calcium 8.1 L Current Medications Acetaminophen (Tylenol) 650 mg PO Q6H PRN PRN PRN Reason: Pain Score 1-10/Temp > 100.7 F Last Admin: 10/21/19 07:58 Dose: 650 mg Documented by: Amlodipine Besylate (Norvasc) 5 mg PO DAILY [facility] Last Admin: 10/20/19 09:53 Dose: 5 mg Documented by: Aspirin (Aspirin, Baby) 81 mg PO BIDCM [facility] Last Admin: 10/21/19 07:59 Dose: 81 mg Documented by: Cholecalciferol (Vitamin D (25mcg)) 2,000 unit PO DAILY [facility] Last Admin: 10/21/19 07:59 Dose: 2,000 unit Documented by: Cyanocobalamin (Vitamin B12) 1,000 mcg PO QODAY [facility] Last Admin: 10/21/19 07:59 Dose: 1,000 mcg Documented by: Dextrose (D50w Syringe) 0 gm IV X1 PRN; Protocol PRN Reason: Hypoglycemia Emollient Ointment (Eucerin Intensive Repair) 1 applic TOPICAL 0600,2200 [facility]; Protocol Last Admin: 10/21/19 05:27 Dose: 1 applicatio Documented by: Galantamine [facility] ([facility]) [facility] Last Admin: 10/21/19 07:59 Dose: 4 mg Documented by: Glucagon () 1 mg IM .X1 PRN PRN Reason: Hypoglycemia Sodium Chloride () 250 mls @ 15 mls/hr IV .[id number] PRN PRN Reason: Saline Flush Sodium Chloride () 1,000 mls @ 75 mls/hr IV .[id number] [facility] Last Admin: 10/20/19 22:51 Dose: 75 mls/hr Documented by: Lisinopril (Zestril) 10 mg PO DAILY [facility] Last Admin: 10/20/19 09:53 Dose: 10 mg Documented by: Nutritional Formula (Lactose Free) (Ensure Enlive) 120 ml PO 4X/DAY [facility] Last Admin: 10/20/19 23:18 Dose: 120 ml Documented by: Nystatin (Mycostatin Powder) 1 applic TOPICAL 0600,2200 [facility]; Protocol Last Admin: 10/21/19 05:27 Dose: 1 applicatio Documented by: [id number] Ethyl Esters (Lovaza) 1 gm PO DAILY [facility] Last Admin: 10/21/19 07:59 Dose: 1 gm Documented by: Ondansetron HCl (Zofran) 4 mg IV Q8H PRN PRN PRN Reason: NAUSEA/VOMITING Oxycodone HCl (Oxyir) 5 mg PO Q4H PRN PRN PRN Reason: Pain Score 4-5/10 Last Admin: 10/21/19 05:27 Dose: 5 mg Documented by: Oxycodone HCl (Oxyir) 10 mg PO Q4H PRN PRN PRN Reason: Pain Score 6-10/10 Promethazine HCl (Phenergan) 12.5 mg IM Q6H PRN PRN; Protocol PRN Reason: NAUSEA/VOMITING Rosuvastatin Calcium (Crestor) 10 mg PO QHS [facility] Last Admin: 10/20/19 23:22 Dose: 10 mg Documented by: Senna/Docusate Sodium (Senokot-S, Leslye-Colace) 2 tablet PO BID [facility] Last Admin: 10/21/19 08:00 Dose: 2 tablet Documented by: Sodium Chloride () 10 - 40 ml IV UD PRN PRN Reason: SALINE FLUSH Last Admin: 10/18/19 11:55 Dose: 10 ml Documented by: Sumatriptan Succinate (Imitrex) 6 mg SC X1 PRN PRN Reason: MIGRAINE SYMPTOMS Vitamin E (Vitamin E) 400 units PO DAILY [facility] Last Admin: 10/21/19 08:00 Dose: 400 units Documented by: STROKE Vital Signs/Narrative: Vital Signs Temp Pulse Resp BP Pulse Ox 10/21/19 07:45 97.1 F L 81 16 124/67 H 93 Medical Necessity - Tobacco Use Smoking Status: Never smoker Assessment/Plan All Active Problems (Last Reviewed 02/01/18 @ 06:[address] Royer Maxwell MD) Closed right hip fracture (Resolved) Closed left hip fracture (Acute) 1. Postop day #2 status post nondisplaced comminuted left intertrochanteric fracture status post left hip open reduction internal fixation, Intra-Op medullary nail fixation. Pain is controlled. Continue per orthopedic recommendations 2. Anemia, postop, likely secondary to acute blood loss/hemodilution Hemoglobin remained stable at 8.6 from 8.9 yesterday Hemoglobin on admission was 10.7 Continue on oral iron 3. Hypertension, controlled, continue on amlodipine, lisinopril 4. Vitamin D/vitamin B12 deficiency 5. Vascular dementia, appears stable 6. Type II DM, diet controlled, HbA1c 6.4 7. RAYNA on cpap 8. DVT prophylaxis with aspirin twice daily Inpatient E&M: 48597 Subs Hosp L2
[2019-10-21 10:09] VITALS: BP 104/47; PULSE 67; O2SAT 95
--- NOTE | 2019-10-21 10:27 | NURSING ---
This RN checked with pt to see if he would like this RN to call his and he requested same be completed. This RN called Jesika and updated her that tentative plan is for patient to possibly be d/c'ed today to rehab or TCU. Understanding verbalized. Questions answered and patient given phone afterward to speak with his .
[2019-10-21] MEDS: 0.9% Normal Saline 1,000 ML 75 ML IV (10:30)
--- NOTE | 2019-10-21 11:54 | CASEMGMT ---
Social Work Note HANDY Received message from Kisha with [facility] that per PT/OT they feel pt would be more appropriate for TCU than [facility]. HANDY placed a call to [place] in TCU, per [place] she was not aware of possible referral for TCU. HANDY informed [place] that pt's information was left on referral line and the plan was [facility] vs TCU and PT/OT are recommending TCU. [place] states she is able to accept pt today. HANDY placed a call to pt's Jesika as pt has history of dementia and poor historian. HANDY updated Jesika that the recommendation is TCU at discharge and that pt will be discharged there today. Jesika states understanding. HANDY updated physician. 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
[2019-10-21 11:57] VITALS: BP 119/67; PULSE 79; RESP 18; TEMP 36.7; O2SAT 94
--- NOTE | 2019-10-21 11:57 | PCM.TXEXTCAR ---
- Diet 10/19/19 07:36 Diet: Cardiac: Calorie-Controlled Food consistency:: Regular Liquid Consistency:: Regular/Thin Is pt able to select menu?: No Diet Comments: mediterranean diet; fish,turkey,chicken , NO PORK.. please cut up food How many daily calories?: 1800 calorie - Routine Orders/Code Status Routine Lab Work: CBC - in 3 days, BMP - in 3 days Code Status: Full Code - Wound(s) LT HIP Wound Type: Surgical Incision - Therapies Weight Bearing: Partial weight bearing Extremity Affected:: Left Lower Physical Therapy: Eval and Treat Occupational Therapy: Eval and Treat - Allergies/Procedures Done in Hospital Allergies/Adverse Reactions: Allergies chocolate flavor Adverse Reaction (Unknown, Verified 10/17/19 14:36) Other headache Pork/Porcine Containing Products Adverse Reaction (Unknown, Verified 10/17/19 14:36) Other headache atorvastatin [From Lipitor] Adverse Reaction (Verified 10/17/19 14:36) Other stomach issues oxybutynin Adverse Reaction (Verified 10/17/19 14:36) Other Procedures: - - s/p left hip open reduction internal fixation, intramedullary nail fixation, locked on 10/18/19 - Type of Care/Length of Stay Estimated LOS: Convalescent Care Less Than 30 days Type of Care Needed: Skilled Rehab Potential: Good Prognosis: Good - Additional Orders/Day of Discharge Day of Discharge: 10/21/19 - Dietary and Speech Recommendations Dietitian Recommendations/Changes: Continue 1800 Calorie/Cardiac diet with Mediterranean diet preference (turkey, fish, chicken; NO PORK); calories adequate given pt prference for vanilla ONS. Consider RING CUTTER LATHE OPERATOR consult as needed as swallowing/chewing warrants--pt likes foods cut-up. Changed ensure enlive w/medpass to glucerna shake given elevated blood glucose levels; likes vanilla and allergic to becky. - Follow Up Care Primary Care Physician: Gildardo Catherine MD [Primary Care Provider] - Please follow up with your Primary Care Physician in: within 1-2 weeks Please Follow Up With: Davy Myers MD When: within 2 weeks
--- NOTE | 2019-10-21 12:01 | DS.PCM_ITS ---
Discharge Date and Diagnosis - Problem List Patient Problems: Active and Suspected Problems (Last Reviewed 02/01/18 @ 06:[address] Royer Maxwell MD) Closed left hip fracture (Acute) Date of Admission: 10/17/19 Date of Discharge: 10/21/19 - Primary Discharge Diagnosis Active and Suspected Problems (Last Reviewed 02/01/18 @ 06:[address] Royer Maxwell MD) Closed left hip fracture (Acute) Post-op anemia/acute blood loss/hemodilution Acute mechanical fall - Secondary Discharge Diagnosis Chronic Problems (Last Reviewed 02/01/18 @ 06:[address] Royer Maxwell MD) Vascular dementia (Chronic) Cervical spinal stenosis (Chronic) Left hemiparesis (Chronic) Tongue cancer (Chronic) Obstructive sleep apnea (Chronic) Hyperlipidemia (Chronic) Overactive bladder (Chronic) Migraine (Chronic) Debility (Chronic) Diabetes mellitus type 2 in nonobese (Chronic) Depression (Chronic) Normochromic normocytic anemia (Chronic) Likely secondary to blood loss from recent hip fracture Urinary incontinence (Chronic) Cerebrovascular disease (Chronic) Generalized weakness (Chronic) Stroke (Chronic) HTN (hypertension) (Chronic) Hospital Course and Treatment Imaging Results: Clinical Impression(s) from Imaging Studies Hip/Pelvis X-Ray 10/17/19 14:47 IMPRESSION: Nondisplaced comminuted left intertrochanteric fracture. Status post right total hip replacement. Electronically Signed: Aleksandr Ji, at 15:35 EDT , Service support , Chest X-Ray 10/17/19 15:20 IMPRESSION: Stable increased linear markings at the lung bases suggestive of scarring. Electronically Signed: Aleksandr Ji, at 15:34 EDT , Service support , Hip/Pelvis X-Ray 10/18/19 15:15 IMPRESSION: Fluoroscopic guidance for ORIF of comminuted left intertrochanteric hip fracture with metal hardware, as noted. Electronically Signed: Tim Ya MD at 16:17 EDT , Service support , Orthopedics surgery Operations: None Procedures: - - tatus post nondisplaced comminuted left intertrochanteric fracture status post left hip open reduction internal fixation, Intra-Op medullary nail fixation. Summary of Care Provided: The patient is a 79 year old M with past medical history of vascular dementia, hypertension who comes in after mechanical fall. Patient stated that he was trying to go up the staircase and lost his balance and fell backwards. He landed on his left hip but did not hit his head or lose consciousness. In the emergency room, x-rays showed nondisplaced comminuted left intertrochanteric fracture. Patient was admitted to the hospital medicine service. He underwent open reduction internal fixation with intramedullary nailing done on 09/26/19. Postoperatively, patient continued to do well. His pain was generally controlled. No acute events. Patient was noted to have a slight drop in his hemoglobin which was believed to be due to acute blood loss. He was seen and evaluated by PT and OT and skilled for discharge to subacute care in TCU. Patient Problems: Active and Suspected Problems (Last Reviewed 02/01/18 @ 06:[address] Royer Maxwell MD) Closed left hip fracture (Acute) Subjective: See progress note of the day Objective: See progress note of the day - Physical Exam Vitals/I&O's: Vital Signs Temp Pulse Resp BP Pulse Ox 97.1 F L 67 16 104/47 L 95 10/21/19 07:45 10/21/19 10:09 10/21/19 07:45 10/21/19 10:09 10/21/19 10:09 Oxygen Flow Rate (L/min) 2 Oxygen Delivery Method Room Air Weight: 97.7 kg Body Mass Index (BMI) 26.2 Finger Stick Blood Glucose 140 Intake and Output for Last 24 Hours 10/19/19 10/20/19 10/21/19 23:59 23:59 23:59 Intake Total 3263.75 / 3263.75 3126.25 / 3126.25 1073.75 / 1073.75 Output Total 1250 / 1250 1050 / 1050 Balance / 2075.25 / 2075.25 1073.75 / 1073.75 Laboratory Results 10/21/19 06:13: WBC 5.8, RBC 2.81 L, Hgb 8.6 L, Hct 26.1 L, MCV 92.9, MCH 30.6, MCHC 33.0, RDW Std Deviation 44.4 H, RDW Coeff of Earline 13.0, Plt Count 103 L, MPV 11.0 10/21/19 06:13: Sodium 140, Potassium 4.1, Chloride 109 H, Carbon Dioxide 26.0, Anion Gap 5, BUN 23 H, Creatinine 0.70, Estim Creat Clear Calc 74.74, Est GFR (MDRD) Af Amer 140, Est GFR (MDRD) Non-Af 115, BUN/Creatinine Ratio 32.8 H, Glucose 153 H, Calcium 8.1 L Current Medications Acetaminophen (Tylenol) 650 mg PO Q6H PRN PRN PRN Reason: Pain Score 1-10/Temp > 100.7 F Last Admin: 10/21/19 07:58 Dose: 650 mg Documented by: Amlodipine Besylate (Norvasc) 5 mg PO DAILY [facility] Last Admin: 10/21/19 10:09 Dose: Not Given Documented by: Aspirin (Aspirin, Baby) 81 mg PO BIDCM [facility] Last Admin: 10/21/19 07:59 Dose: 81 mg Documented by: Cholecalciferol (Vitamin D (25mcg)) 2,000 unit PO DAILY [facility] Last Admin: 10/21/19 07:59 Dose: 2,000 unit Documented by: Cyanocobalamin (Vitamin B12) 1,000 mcg PO QODAY [facility] Last Admin: 10/21/19 07:59 Dose: 1,000 mcg Documented by: Dextrose (D50w Syringe) 0 gm IV X1 PRN; Protocol PRN Reason: Hypoglycemia Emollient Ointment (Eucerin Intensive Repair) 1 applic TOPICAL 0600,2200 [facility]; Protocol Last Admin: 10/21/19 05:27 Dose: 1 applicatio Documented by: Ferrous Sulfate (Ferrous Sulfate) 325 mg PO 1200,1700 [facility] Galantamine Hydrobromide (Razadyne) 4 mg PO BIDCM [facility] Last Admin: 10/21/19 07:59 Dose: 4 mg Documented by: Glucagon () 1 mg IM .X1 PRN PRN Reason: Hypoglycemia Sodium Chloride () 250 mls @ 15 mls/hr IV .[id number] PRN PRN Reason: Saline Flush Sodium Chloride () 1,000 mls @ 75 mls/hr IV .[id number] [facility] Last Admin: 10/21/19 10:30 Dose: 75 mls/hr Documented by: Lisinopril (Zestril) 10 mg PO DAILY [facility] Last Admin: 10/21/19 10:09 Dose: Not Given Documented by: Nutritional Formula (Lactose Free) (Glucerna Shake) 120 ml PO 4X/DAY [facility] Last Admin: 10/21/19 10:06 Dose: Not Given Documented by: Nystatin (Mycostatin Powder) 1 applic TOPICAL 0600,2200 [facility]; Protocol Last Admin: 10/21/19 05:27 Dose: 1 applicatio Documented by: Fewhe-4-Sodt Ethyl Esters (Lovaza) 1 gm PO DAILY [facility] Last Admin: 10/21/19 07:59 Dose: 1 gm Documented by: Ondansetron HCl (Zofran) 4 mg IV Q8H PRN PRN PRN Reason: NAUSEA/VOMITING Oxycodone HCl (Oxyir) 5 mg PO Q4H PRN PRN PRN Reason: Pain Score 4-5/10 Last Admin: 10/21/19 05:27 Dose: 5 mg Documented by: Oxycodone HCl (Oxyir) 10 mg PO Q4H PRN PRN PRN Reason: Pain Score 6-10/10 Promethazine HCl (Phenergan) 12.5 mg IM Q6H PRN PRN; Protocol PRN Reason: NAUSEA/VOMITING Rosuvastatin Calcium (Crestor) 10 mg PO QHS [facility] Last Admin: 10/20/19 23:22 Dose: 10 mg Documented by: Senna/Docusate Sodium (Senokot-S, Leslye-Colace) 2 tablet PO BID [facility] Last Admin: 10/21/19 08:00 Dose: 2 tablet Documented by: Sodium Chloride () 10 - 40 ml IV UD PRN PRN Reason: SALINE FLUSH Last Admin: 10/18/19 11:55 Dose: 10 ml Documented by: Sumatriptan Succinate (Imitrex) 6 mg SC X1 PRN PRN Reason: MIGRAINE SYMPTOMS Vitamin E (Vitamin E) 400 units PO DAILY [facility] Last Admin: 10/21/19 08:00 Dose: 400 units Documented by: Discharge Diet: No Restrictions, Low fat/ Low Cholesterol, 1800 Calorie Control Diet, 2000 mg Sodium Diet Discharge Activity: - - 25% weighbearing to left lower extremity Home Medications: Medications to take at Discharge Multivit-Min/Folic Acid/Biotin [Hair, Skin and Nails Caplet] 1 each PO DAILY 07/30/17 Onarga-3/Dha/Epa/Fish Oil [Fish Oil Onarga-3 EC 1,200 mg] 1 each PO DAILY 07/30/17 Vitamin E (Dl,Tocopheryl Acet) [Vitamin E] 400 units PO DAILY 07/30/17 Rosuvastatin Calcium [Crestor] 10 mg PO QHS 05/11/19 Galantamine Hbr [Razadyne] 4 mg PO BIDCM 05/14/19 Acetaminophen [Tylenol] 1,000 mg PO Q8 05/31/19 Lisinopril [Zestril] 10 mg PO DAILY 05/31/19 Menthol/Lanolin/Calamine/Znox [Calmoseptine Ointment] 1 applic TOPICAL BID 05/31/19 Emollient Combination No.72 [Eucerin Intensive Repair] 1 applic TOPICAL 0600,2200 lotion 07/02/19 Nystatin Powder [Mycostatin Powder] 1 applic TOPICAL 0600,2200 bottle 07/02/19 Amlodipine Besylate [Norvasc] 5 mg PO DAILY 10/17/19 Biotin 3 mg PO DAILY 10/17/19 Calcium Citrate 500 mg PO DAILY 10/17/19 Cholecalciferol (Vitamin D3) [Vitamin D3] 2,000 unit PO DAILY 10/17/19 Cyanocobalamin [Vitamin B12] 1,000 mcg PO QODAY 10/17/19 Sumatriptan Succ/Naproxen Sod [Treximet 85-500 mg Tablet] 1 ea PO DAILY PRN PRN 10/17/19 Aspirin [Aspirin, Baby] 81 mg PO BIDCM tab.chew 10/21/19 Ferrous Sulfate 325 mg PO 1200,1700 tab 10/21/19 Glucerna Shake 120 ml PO 4X/DAY liquid 10/21/19 Oxycodone [Oxyir] 5 mg PO Q4H PRN PRN 3 Days #12 tab 10/21/19 Senna/Docusate Sodium [Senokot-S] 2 tab PO BID PRN 30 Days #60 tab 10/21/19 Following Prescrptions Were Given to Patient: Oxycodone [Oxyir] 5 mg PO Q4H PRN PRN 3 Days #12 tab PRN Reason: Pain Score 6-10 Prescription Printed Primary Care Physician: Gildardo Catherine MD [Primary Care Provider] - Please follow up with your Primary Care Physician in: within 1-2 weeks Please Follow Up With: Davy Myers MD When: within 2 weeks Disposition: [facility] facility Minutes spent on discharge:: 40 Patient Condition:: Stable Medical Necessity - Tobacco Use Smoking Status: Never smoker Tobacco Use: Non-smoker Meaningful Use Info Meaningful Use Diagnoses (Choose all that apply): None applicable Inpatient E&M: 04376 [facility] Hosp
[2019-10-21 12:31] LABS: Iron 15 ug/dL (65-175); Iron Binding Capacity,Total 152 ug/dL (250-450); PERCENT IRON SATURATION 9.9 % (15.0-55.0)
[2019-10-21] MEDS: Ferrous Sulfate 325 MG Tablet PO (13:15)
--- NOTE | 2019-10-21 14:04 | NURSING ---
report called to serene in TCU at this time- calling jefe, patient's to notify her of transfer prior to sending pt over.
== END 2019-10-21 14:29 | disposition skilled nursing facility (03) | DRG 481 ==
LOC: ED 15:53 → MS3 17:37
PROVIDERS: Anesthesiology; Internal Medicine; Orthopaedic Surgery; Emergency Provider Emergency Medicine; PCP Family Medicine; Visit Provider Internal Medicine
PROC: 0QS706Z Reposition Left Upper Femur with Intramedullary Internal Fixation Device, Open Approach (ICD-10-PCS; CPT 27245; principal; 2019-10-18 10:00)
DX: S72.142A Displaced intertrochanteric fracture of left femur, initial encounter for closed fracture (principal); I69.354 Hemiplegia and hemiparesis following cerebral infarction affecting left non-dominant side; D62 Acute posthemorrhagic anemia; I10 Essential (primary) hypertension; F01.50 Vascular dementia, unspecified severity, without behavioral disturbance, psychotic disturbance, mood disturbance, and anxiety; G47.33 Obstructive sleep apnea (adult) (pediatric); M48.02 Spinal stenosis, cervical region; E78.5 Hyperlipidemia, unspecified; E11.9 Type 2 diabetes mellitus without complications; R20.8 Other disturbances of skin sensation; E55.9 Vitamin D deficiency, unspecified; G43.909 Migraine, unspecified, not intractable, without status migrainosus; E53.8 Deficiency of other specified B group vitamins; W01.0XXA Fall on same level from slipping, tripping and stumbling without subsequent striking against object, initial encounter; Z96.641 Presence of right artificial hip joint; Y93.89 Activity, other specified; Y92.009 Unspecified place in unspecified non-institutional (private) residence as the place of occurrence of the external cause; Z85.810 Personal history of malignant neoplasm of tongue; I69.398 Other sequelae of cerebral infarction
CPT/HCPCS: 36415; 71045; 73502; 76000; 80048; 82306; 82962; 83036; 83540; 83550; 83735; 85025; 85027; 86850; 86900; 86901; 93005; 96374; 96375; 97110; 97163; 97166; 97530; 97802; 99251; 99285; C1713; J7030; A4216; G0463; J2405

== ENCOUNTER 2019-10-21 14:40 | Inpatient (IN) | payer MEDICARE, BC, SELFPAY ==
[2019-10-21 15:31] VITALS: BP 138/68; PULSE 69; RESP 16; TEMP 36.7; O2SAT 92; BMI 26.9
[2019-10-21] MEDS: oxyCODONE 5 MG Tablet PO ×2 (16:22→21:58)
[2019-10-21] MEDS: Ferrous Sulfate 325 MG Tablet PO (19:05)
[2019-10-21] MEDS: Aspirin 81 MG TAB.CHEW PO (19:05)
[2019-10-21] MEDS: Galantamine Hydrobromide 4 MG Tablet PO (19:05)
[2019-10-21] MEDS: Glucerna Shake 120 ML LIQUID PO ×2 (19:07→22:02)
[2019-10-21] MEDS: Menthol/Lanolin/Calamine/Znox 113 GM Tube 1 APPLIC TOPICAL (19:07)
--- NOTE | 2019-10-21 20:12 | PCM.HP.STD ---
Problem List (1) Fall Status: Acute (2) Vascular dementia Status: Chronic (3) Cervical spinal stenosis Status: Chronic (4) Left hemiparesis Status: Chronic (5) Tongue cancer Status: Chronic (6) Obstructive sleep apnea Status: Chronic (7) Hyperlipidemia Status: Chronic (8) Overactive bladder Status: Chronic (9) Migraine Status: Chronic (10) Debility Status: Acute (11) Diabetes mellitus type 2 in nonobese Status: Chronic (12) Closed left hip fracture Status: Acute (13) Stroke Status: Chronic (14) HTN (hypertension) Status: Chronic History of Present Illness Date of Admission: 10/21/19 Chief Complaint: Here for rehabilitation, strengthening, prior to discharge home with . The patient is a 79 year old Male with below past medical history presented to [facility] Emergency Department 10/17/2019 with fall. 10/17/2019 EKG shows bradycardia, otherwise normal EKG. 10/17/2019 Chest X-ray shows bibasilar scarring. Fall, going up stairs, lost balance, fell on left hip. Metabolic workup negative. 10/17/2019 Admit to Hospital. Optimized for surgery. 10/18/2019 Dr. Davy Myers performed left hip open reduction internal fixation, intramedullary nail fixation, locked. Postoperatively, pain well controlled. Slight hemoglobin drop secondary to acute blood loss. PT/OT, recommend [facility] at discharge. 10/21/2019 Admit to TCU with debility, here for rehabilitation, strengthening, prior to discharge home with . Past Medical History Past Medical History (Chronic Problems): Chronic Problems (Last Reviewed 02/01/18 @ 06:[address] Royer Maxwell MD) Vascular dementia (Chronic) Cervical spinal stenosis (Chronic) Left hemiparesis (Chronic) Tongue cancer (Chronic) Obstructive sleep apnea (Chronic) Hyperlipidemia (Chronic) Overactive bladder (Chronic) Migraine (Chronic) Diabetes mellitus type 2 in nonobese (Chronic) Depression (Chronic) Normochromic normocytic anemia (Chronic) Likely secondary to blood loss from recent hip fracture Urinary incontinence (Chronic) Cerebrovascular disease (Chronic) Generalized weakness (Chronic) Stroke (Chronic) HTN (hypertension) (Chronic) Medical History: Medical History (Last Reviewed 02/01/18 @ 06:[address] Royer Maxwell MD) Cerebrovascular disease (Chronic) I67.9 Allergies chocolate flavor Adverse Reaction (Unknown, Verified 10/17/19 14:36) Other headache Pork/Porcine Containing Products Adverse Reaction (Unknown, Verified 10/17/19 14:36) Other headache atorvastatin [From Lipitor] Adverse Reaction (Verified 10/17/19 14:36) Other stomach issues oxybutynin Adverse Reaction (Verified 10/17/19 14:36) Other Home Medications: Ambulatory Orders Medication Instructions Recorded Multivit-Min/Folic Acid/Biotin 1 each PO DAILY 07/30/17 [Hair, Skin and Nails Caplet] [place]-3/Dha/Epa/Fish Oil [Fish Oil 1 each PO DAILY 07/30/17 [place]-3 EC 1,200 mg] Vitamin E (Dl,Tocopheryl Acet) 400 units PO DAILY 07/30/17 [Vitamin E] Rosuvastatin Calcium [Crestor] 10 mg PO QHS 05/11/19 Galantamine Hbr [Razadyne] 4 mg PO BIDCM 05/14/19 Acetaminophen [Tylenol] 1,000 mg PO Q8 05/31/19 Lisinopril [Zestril] 10 mg PO DAILY 05/31/19 Menthol/Lanolin/Calamine/Znox 1 applic TOPICAL BID 05/31/19 [Calmoseptine Ointment] Amlodipine Besylate [Norvasc] 5 mg PO DAILY 10/17/19 Biotin 3 mg PO DAILY 10/17/19 Calcium Citrate 500 mg PO DAILY 10/17/19 Cholecalciferol (Vitamin D3) 2,000 unit PO DAILY 10/17/19 [Vitamin D3] Cyanocobalamin [Vitamin B12] 1,000 mcg PO QODAY 10/17/19 Sumatriptan Succ/Naproxen Sod 1 ea PO DAILY PRN PRN 10/17/19 [Treximet 85-500 mg Tablet] Aspirin [Aspirin, Baby] 81 mg PO BIDCM 10/21/19 Emollient Combination No.72 1 applic TOPICAL 0600,0 10/21/19 [Eucerin Intensive Repair] Ferrous Sulfate 325 mg PO 1200,1700 10/21/19 Glucerna Shake 120 ml PO 4X/DAY 10/21/19 Nystatin Powder [Mycostatin Powder] 1 applic TOPICAL 0600,2200 10/21/19 Oxycodone [Oxyir] 5 mg PO Q4H PRN PRN 3 Days #12 tab 10/21/19 Senna/Docusate Sodium [Senokot-S] 2 tab PO BID PRN 30 Days #60 tab 10/21/19 Surgical History: total hip arthroplasty - Right hip, hemiarthroplasty., - - Tongue resection, Left hip ORIF, intramedullary nail, locked. Psychiatric History: No pertinent psych hx Lives: Spouse/ Significant Other Smoking Status: Never smoker Tobacco Use: Non-smoker Alcohol: None Drugs: None - *Family History Paternal History Items: Stroke Maternal History Items: No pertinent history Review of Systems Constitutional: Denies: Chills, Fever, Weight Change HEENT: Denies: Head Aches, Sinus Congestion, Sinus Drainage Cardiovascular: Denies: Chest Pain, Palpitations Respiratory: Denies: Cough, Shortness of breath at rest, Sputum production Gastrointestinal: Denies: Abdominal Pain, Nausea, Vomiting Genitourinary: Denies: Dysuria Musculoskeletal: Denies: Joint Pain, Joint Tenderness Skin: Denies: Rash, Wounds Neurological: Denies: Numbness, Tingling, Focal weakness Psychiatric: Denies: Anxiety, Depression, Homicidal Ideations, Suicidal Ideations Hematologic/ Lymphatic: Denies: Easy Bruising, Easy Bleeding VTE Information - Inpt Only VTE Present on Admission: No VTE Mechan Device Prophylaxis: Knee High KATIE Hose VTE Pharm Prophylaxis ordered?: Yes Patient Problems: Active and Suspected Problems (Last Reviewed 02/01/18 @ 06:[address] Royer Maxwell MD) Fall (Acute) - Physical Exam Vitals/I&O's: Vital Signs Temp Pulse Resp BP Pulse Ox 98.1 F 69 16 138/68 H 92 10/21/19 15:31 10/21/19 15:31 10/21/19 15:31 10/21/19 15:31 10/21/19 15:31 Oxygen Delivery Method Room Air Weight: 100.301 kg Body Mass Index (BMI) 26.9 Finger Stick Blood Glucose 140 General: Alert, Oriented x3, Cooperative HEENT: Atraumatic, PERRLA, EOMI, Normocephalic Neck: Supple, No JVD, Negative Carotid Bruits Lungs: Clear to auscultation, Normal air movement Cardiovascular: Regular rate, No murmurs Abdomen: Bowel Sounds Present, Soft, Non Tender Extremities: No edema, Capillary Refill Less than 3 Seconds Skin: No rashes, No breakdown Musculoskeletal: No Tenderness to Palpation of Joints or Extremities Neurological: Cranial nerves II-XII grossly intact, - - Left hemiparesis. Psych/Mental Status: Normal Affect, Appropriate Current Medications Acetaminophen (Tylenol) 1,000 mg PO Q8 [facility] Amlodipine Besylate (Norvasc) 5 mg PO DAILY [facility] Aspirin (Aspirin, Baby) 81 mg PO BIDCM [facility] Last Admin: 10/21/19 19:05 Dose: 81 mg Documented by: Calamine/Phenol (Calmoseptine Ointment) 1 applic TOPICAL BID [facility]; Protocol Last Admin: 10/21/19 19:07 Dose: 1 applicatio Documented by: Calcium Carbonate (Os-Isaiah 500) 500 mg PO DAILY@0800 [facility] Cholecalciferol (Vitamin D (25mcg)) 2,000 unit PO DAILY [facility] Cyanocobalamin (Vitamin B12) 1,000 mcg PO QODAY@0800 [facility] Emollient Ointment (Eucerin Intensive Repair) 1 applic TOPICAL 0600,2200 [facility]; Protocol Ferrous Sulfate (Ferrous Sulfate) 325 mg PO 1200,1700 [facility] Last Admin: 10/21/19 19:05 Dose: 325 mg Documented by: Galantamine Hydrobromide (Razadyne) 4 mg PO BIDCM [facility] Last Admin: 10/21/19 19:05 Dose: 4 mg Documented by: Lisinopril (Zestril) 10 mg PO DAILY [facility] Multivitamins/Minerals (Multivitamin With Minerals (Bkc)) 1 tablet PO DAILY@0800 [facility] Nutritional Formula (Lactose Free) (Glucerna Shake) 120 ml PO 4X/DAY [facility] Last Admin: 10/21/19 19:07 Dose: 120 ml Documented by: Nystatin (Mycostatin Powder) 1 applic TOPICAL 0600,2200 [facility]; Protocol Ednib-3-Lhla Ethyl Esters (Lovaza) 1 gm PO DAILY [facility] Oxycodone HCl (Oxyir) 5 mg PO Q4H PRN PRN PRN Reason: Pain Score 6-10/10 Last Admin: 10/21/19 16:22 Dose: 5 mg Documented by: Rizatriptan Benzoate (Maxalt) 10 mg PO DAILY PRN PRN PRN Reason: MIGRAINE SYMPTOMS Rosuvastatin Calcium (Crestor) 10 mg PO QHS [facility] Senna/Docusate Sodium (Senokot-S, Leslye-Colace) 2 tablet PO BID PRN PRN PRN Reason: Constipation Tuberculin PPD (Tubersol, Aplisol, Ppd) 5 tu ID X1 ONE Stop: 10/22/19 10:01 Tuberculin PPD (Tubersol, Aplisol, Ppd) 5 tu ID X1 ONE Stop: 10/29/19 10:01 Vitamin E (Vitamin E) 400 units PO DAILY [facility] Assessment/Plan All Active Problems (Last Reviewed 02/01/18 @ 06:[address] Royer Maxwell MD) Closed right hip fracture (Resolved) Debility (Acute) Closed left hip fracture (Acute) Fall (Acute) 79 year old male with below past medical history hospitalized for left hip fracture, underwent left hip ORIF, intramedullary nail, locked 10/18/[address] Davy Myers, admitted to TCU with debility, here for rehabilitation, strengthening, prior to discharge home with . Debility - PT/OT. Pain - Tylenol 1000MG Q8H, Oxycodone 5MG Q4H PRN pain (6-10). Bowel - Miralax 17GM daily, Senna/colace 2 tablets BID, Dulcolax 10MG daily PRN. Adult immunization - Administer Prevnar 13, Pneumovax 23, Fluzone as appropriate. DVT prophylaxis - Aspirin 81MG twice daily thru 11/20/2019, then 81MG daily. Hypertension - Lisinopril 10MG daily, Amlodipine 5MG daily. Stroke - Aspirin 81MG twice daily thru 11/20/2019 for DVT prophylaxis, then 81MG daily. Calcium deficiency - Calcium 500MG daily. Vitamin D deficiency - D3 2000IU daily. Vitamin B12 deficiency - B12 1000MCG every other day. Skin irritation - Eucerin BID, Calmoseptine BID. Iron deficiency anemia - Ferrous sulfate 325MG BID. Vascular dementia - Galantamine 4MG BID. Nutrition - MVI daily, Glucerna 120ML 4x/day. Tinea Corporis - Nystatin powder BID. Hyperlipidemia - Rosuvastatin 10MG QHs, Lovaza 1GM daily (Lovaza no evidence in decreasing CV risk, consider Vascepa) Migraine - Maxalt 10MG daily PRN. Vitamin E deficiency - Vitamin E 400IU daily (Vitamin E known to increase CV risk, consider stopping)
[2019-10-21 21:11] LABS: Bedside Glucose 180 mg/dL (70-110)
[2019-10-21] MEDS: Nystatin Powder 15gm Bottle 1 APPLIC TOPICAL (21:59)
[2019-10-21] MEDS: Acetaminophen 500 MG Tablet 1000 MG PO (22:00)
[2019-10-22 05:54] VITALS: BP 121/60; PULSE 70
[2019-10-22] MEDS: oxyCODONE 5 MG Tablet PO ×4 (05:54→21:35)
[2019-10-22] MEDS: Acetaminophen 500 MG Tablet 1000 MG PO ×3 (05:54→21:36)
[2019-10-22] MEDS: Lisinopril 10 MG Tablet PO (05:55)
[2019-10-22] MEDS: Vitamin E 400 UNITS Capsule PO (05:55)
[2019-10-22] MEDS: Omega-3 Acid Ethyl Esters 1 GM Capsule PO (05:55)
[2019-10-22] MEDS: Senna/Docusate Sodium 1 Tablet 2 TABLET PO ×2 (05:56→18:32)
[2019-10-22] MEDS: Polyethylene Glycol 3350 17 GM PACKET PO (05:56)
[2019-10-22] MEDS: Menthol/Lanolin/Calamine/Znox 113 GM Tube 1 APPLIC TOPICAL ×2 (06:01→18:34)
[2019-10-22] MEDS: Nystatin Powder 15gm Bottle 1 APPLIC TOPICAL ×2 (06:02→21:36)
[2019-10-22] MEDS: amLODIPine 5 MG Tablet PO (06:05)
[2019-10-22 06:48] LABS: Absolute Lymphocyte Count 0.93 X10^3/uL (0.83-4.51); Absolute Neutrophil Count 3.5 X10^3/uL (2.0-7.7); Basophil# 0.03 X10^3/uL; Basophil% 0.6 % (0-1); Eosinophil# 0.23 X10^3/uL; Eosinophils% 4.6 % (0-5); Hematocrit 26.4 % (40-54); Hemoglobin 8.6 g/dL (13.0-16.5); Lymphocyte # 0.93 X10^3/ul (4.0); Lymphocyte % 18.4 % (19-41); Mean Corp Hgb Conc 32.6 g/dL (32-36); Mean Corpuscular Hgb 30.1 pg (27.0-32.0); Mean Corpuscular Volume 92.3 fL (80-94); Monocyte# 0.31 X10^3/uL; Monocyte% 6.1 % (0-10); NRBC Flagged by Analyzer 0 % (0-5); Neutrophil # 3.53 X10^3/uL (2.7-7.7); Neutrophil % 69.9 % (47-70); Platelet Count 124 K/mm3 (150-450); RBC Distribution Width CV 12.8 % (11.6-14.6); RBC Distribution Width SD 43.6 fl (35.1-43.9); Red Blood Count 2.86 M/mm3 (4.6-6.2); White Blood Count 5.1 K/mm3 (4.4-11.0)
[2019-10-22 07:08] LABS: Anion Gap 6 (5-15); BUN 21 mg/dL (7-18); BUN/Creat Ratio 31.8 RATIO (10-20); Calcium,Total 8.1 mg/dL (8.5-10.1); Chloride 106 mmol/L (98-107); Creatinine, Serum 0.66 mg/dL (0.70-1.30); EST Glomerular Filtration Rate 124 mL/min (>60); Est Glom Filt Rate - Afr Amer 150 mL/min (>60); Estimated Creatinine Clearance 74.74 ml/min; Glucose 151 mg/dL (74-106); Potassium 3.8 mmol/L (3.5-5.1); Sodium Level 137 mmol/L (136-145)
[2019-10-22] MEDS: Aspirin 81 MG TAB.CHEW PO ×2 (08:59→18:32)
[2019-10-22] MEDS: Galantamine Hydrobromide 4 MG Tablet PO ×2 (08:59→18:32)
[2019-10-22] MEDS: Calcium (Elemental) 500 MG Tablet PO (08:59)
[2019-10-22] MEDS: Multivitamins,Ther W-Minerals Tablet 1 TABLET PO (08:59)
--- NOTE | 2019-10-22 10:44 | CASEMGMT ---
Social Work Discussed code status with pt. Pt confirmed full code. MOLST form completed and put in chart. Alissa Pacheco, TELETYPE OR VARITYPE KEYBOARD OPERATOR OCCUP THER
[2019-10-22] MEDS: Tuberculin,Purif.prot.deriv. 50 TU/ML Vial 5 ML ID (11:00)
[2019-10-22] MEDS: Glucerna Shake 120 ML LIQUID PO ×2 (12:09→18:31)
[2019-10-22] MEDS: Ferrous Sulfate 325 MG Tablet PO ×2 (12:09→18:32)
[2019-10-22 15:18] VITALS: BP 120/83; PULSE 93; RESP 18; TEMP 35.9; O2SAT 98
--- NOTE | 2019-10-22 15:30 | CHAPLAIN ---
Type of Pastoral Visit _x__ Initial Visit ___ Follow-up Visit ___ On-call Visit ___ General Patient Visit ___ Spiritual Assessment ___ Family Conference ___ Bereavement ___ Rapid Response ___ Code Blue ___ Other (describe below) Pastoral Care Referral From _x__ Patient ___ Family ___ Nurse ___ Physician ___ Cotton Sampler ___ Extension Service Specialist ___ Other (describe below) Sacrament/Intervention _x__ Active listening ___ Anointing ___ Pentecostalism ___ Bereavement ___ Communion _x__ Tasha exploration ___ _x__ Life review _x__ Prayer ___ Reconciliation ___ Sacrament of Sick _x__ Supportive presence ___ Wedding ___ Other (describe below) Pastoral Comments this patient was seen in previous admission and remembers this automobile or truck rental dispatcher; pt is talkative and reviews his professional life and family; pt presents with optimistic attitude and expresses appreciation for hospital workers / caregivers; pt presents himself as a man of deep tasha and open to spiritual care and prayer; pt has goals for his halfway years; pt welcomes visits from automobile or truck rental dispatcher
[2019-10-23] MEDS: oxyCODONE 5 MG Tablet PO ×3 (05:55→17:28)
[2019-10-23] MEDS: Omega-3 Acid Ethyl Esters 1 GM Capsule PO (05:56)
[2019-10-23] MEDS: Polyethylene Glycol 3350 17 GM PACKET PO (05:56)
[2019-10-23] MEDS: Nystatin Powder 15gm Bottle 1 APPLIC TOPICAL ×2 (05:56→22:16)
[2019-10-23] MEDS: amLODIPine 5 MG Tablet PO (05:56)
[2019-10-23] MEDS: Vitamin E 400 UNITS Capsule PO (05:56)
[2019-10-23] MEDS: Senna/Docusate Sodium 1 Tablet 2 TABLET PO ×2 (05:56→17:29)
[2019-10-23] MEDS: Lisinopril 10 MG Tablet PO (05:56)
[2019-10-23] MEDS: Acetaminophen 500 MG Tablet 1000 MG PO ×3 (05:59→22:11)
[2019-10-23] MEDS: Menthol/Lanolin/Calamine/Znox 113 GM Tube 1 APPLIC TOPICAL ×2 (06:02→17:22)
[2019-10-23] MEDS: Glucerna Shake 120 ML LIQUID PO ×4 (06:03→22:12)
[2019-10-23 06:05] VITALS: BP 108/53; PULSE 88
[2019-10-23] MEDS: Calcium (Elemental) 500 MG Tablet PO (09:00)
[2019-10-23] MEDS: Galantamine Hydrobromide 4 MG Tablet PO ×2 (09:00→17:19)
[2019-10-23] MEDS: Aspirin 81 MG TAB.CHEW PO ×2 (09:00→17:19)
[2019-10-23] MEDS: Multivitamins,Ther W-Minerals Tablet 1 TABLET PO (09:00)
[2019-10-23] MEDS: Cyanocobalamin 500 MCG Tablet 1000 MCG PO (09:01)
--- NOTE | 2019-10-23 09:21 | PHA.CONS_ITS ---
<Marco Quiles - Last Filed: 10/23/19 09:21> Progress Note - Pharmacy Subjective: [] TCU Admission Objective: Allergies chocolate flavor Adverse Reaction (Unknown, Verified 10/17/19 14:36) Other headache Pork/Porcine Containing Products Adverse Reaction (Unknown, Verified 10/17/19 14:36) Other headache atorvastatin [From Lipitor] Adverse Reaction (Verified 10/17/19 14:36) Other stomach issues oxybutynin Adverse Reaction (Verified 10/17/19 14:36) Other Current Medications Generic Name Dose Route Start Last Admin Trade Name Freq PRN Reason Stop Dose Admin Acetaminophen 1,000 mg 10/21/19 22:00 10/23/19 05:59 Tylenol PO 1,000 mg Q8 [facility] Administration Amlodipine Besylate 5 mg 10/22/19 06:00 10/23/19 05:56 Norvasc PO 5 mg DAILY [facility] Administration Aspirin 81 mg 10/21/19 17:00 10/23/19 09:00 Aspirin, Baby PO 11/22/19 23:59 81 mg BIDCM [facility] Administration Aspirin 81 mg 11/23/19 08:00 Aspirin, Baby PO DAILY@0800 [facility] Bisacodyl 10 mg 10/21/19 20:31 Dulcolax PO DAILY PRN PRN Constipation Calamine/Phenol 1 applic 10/21/19 18:00 10/23/19 06:02 Calmoseptine Ointment TOPICAL 1 applicatio BID [facility] Administration Protocol Calcium Carbonate 500 mg 10/22/19 08:00 10/23/19 09:00 Os-Isaiah 500 PO 500 mg DAILY@0800 [facility] Administration Cholecalciferol 2,000 unit 10/22/19 06:00 10/23/19 05:59 Vitamin D (25mcg) PO 2,000 unit DAILY [facility] Administration Cyanocobalamin 1,000 mcg 10/23/19 08:00 10/23/19 09:01 Vitamin B12 PO 1,000 mcg QODAY@0800 [facility] Administration Emollient Ointment 1 applic 10/21/19 22:00 10/23/19 05:57 Eucerin Intensive Repair TOPICAL 1 applicatio 0600,2200 [facility] Administration Protocol Ferrous Sulfate 325 mg 10/21/19 17:00 10/22/19 18:32 Ferrous Sulfate PO 325 mg 1200,1700 [facility] Administration Galantamine Hydrobromide 4 mg 10/21/19 17:00 10/23/19 09:00 Razadyne PO 4 mg BIDCM [facility] Administration Lisinopril 10 mg 10/22/19 06:00 10/23/19 05:56 Zestril PO 10 mg DAILY [facility] Administration Multivitamins/Minerals 1 tablet 10/22/19 08:00 10/23/19 09:00 Multivitamin With Minerals (Bkc) PO 1 tablet DAILY@0800 [facility] Administration Nutritional Formula (Lactose Free) 120 ml 10/21/19 17:00 10/23/19 06:03 Glucerna Shake PO 120 ml 4X/DAY [facility] Administration Nystatin 1 applic 10/21/19 22:00 10/23/19 05:56 Mycostatin Powder TOPICAL 1 applicatio 0600,2200 [facility] Administration Protocol [id number] Ethyl Esters 1 gm 10/22/19 06:00 10/23/19 05:56 Lovaza PO 1 gm DAILY [facility] Administration Oxycodone HCl 5 mg 10/21/19 15:31 10/23/19 05:55 Oxyir PO 5 mg Q4H PRN PRN Administration Pain Score 6-10/10 Polyethylene Glycol 17 gm 10/22/19 06:00 10/23/19 05:56 Miralax PO 17 gm DAILY [facility] Administration Rizatriptan Benzoate 10 mg 10/21/19 17:10 Maxalt PO DAILY PRN PRN MIGRAINE SYMPTOMS Rosuvastatin Calcium 10 mg 10/21/19 22:00 10/22/19 21:37 Crestor PO 10 mg QHS [facility] Administration Senna/Docusate Sodium 2 tablet 10/22/19 06:00 10/23/19 05:56 Senokot-S, Leslye-Colace PO 2 tablet BID [facility] Administration Tuberculin PPD 5 tu 10/29/19 10:00 Tubersol, Aplisol, Ppd ID 10/29/19 10:01 X1 ONE Vitamin E 400 units 10/22/19 06:00 10/23/19 05:56 Vitamin E PO 400 units DAILY [facility] Administration Problem List (Last Reviewed 02/01/18 @ 06:[address] Royer Maxwell MD) Fall (Acute) Vital Signs Temp Pulse Resp BP Pulse Ox 96.7 F L 88 18 108/53 L 98 10/22/19 15:18 10/23/19 06:05 10/22/19 15:18 10/23/19 06:05 10/22/19 15:18 Oxygen Delivery Method Room Air Weight: 100.3 kg Body Mass Index (BMI) 26.9 Finger Stick Blood Glucose 140 Sodium 137 mmol/L (136-145) 10/22/19 06:25 Potassium 3.8 mmol/L (3.5-5.1) 10/22/19 06:25 Chloride 106 mmol/L (98-107) 10/22/19 06:25 Carbon Dioxide 25.0 mmol/L (21.0-32.0) 10/22/19 06:25 Anion Gap 6 (5-15) 10/22/19 06:25 BUN 21 mg/dL (7-18) H 10/22/19 06:25 Creatinine 0.66 mg/dL (0.70-1.30) L 10/22/19 06:25 Est GFR (MDRD) Af Amer 150 mL/min (>60) 10/22/19 06:25 Est GFR (MDRD) Non-Af 124 mL/min (>60) 10/22/19 06:25 BUN/Creatinine Ratio 31.8 RATIO (10-20) H 10/22/19 06:25 Glucose 151 mg/dL (74-106) H 10/22/19 06:25 Debility - PT/OT. DVT prophylaxis - Aspirin 81MG twice daily thru 11/20/2019, then 81MG daily. Hypertension - Lisinopril 10MG daily, Amlodipine 5MG daily. Stroke - Aspirin 81MG twice daily thru 11/20/2019 for DVT prophylaxis, then 81MG daily. Vascular dementia - Galantamine 4MG BID. Assessment/Plan: 1) Pain: Acetaminophen 1000mg po q8 hours, Oxycodone 5mg po q4h prn for pain score 6-10/10. Please continue to monitor prn usage. As of 10/22 pt has received 7 doses and has taken on a regular basis. Please continue to monitor for signs/symptoms of increased/decreased pain. 2) Hyperlipidemia: Rosuvastatin 10mg po qhs, Lovaza 1gm po daily. Pt's LFTs are within normal limits. Please continue to monitor. Pt's Triglycerides are within goal range. Please continue to monitor. Pt's Lipid Panel is within normal limits. Please continue to monitor. 3) Migraine: Maxalt 10mg po daily prn for migraine. Please continue to monitor for signs/symptoms of migraine 4) Iron Deficiency Anemia: Ferrous Sulfate 325mg po bid. Pt's RBCs, H+H, Iron level, and Iron saturation are all low compared to baseline. Please continue to monitor *5) Vitamin Deficiency: Vitamin D3 2000IU po daily, Vitamin B12 1000mcg po every other day, Vitamine E 400 IU daily, Calcium 500mg po daily. Pt's Calcium level was 8.1. Please continue to monitor. Pt's last B12 level was 07/2019 and was elevated. Please consider another level B12 level. Thanks 6) Vascular Dementia: Galantamine 4mg po bid. Galantamine is on the BEERS list due to syncope caused by bradycardia. Pt's average pulse rate is 77.8. Please continue to monitor. 7) Hypertension: Lisinopril 10mg po daily, Amlodipine 5mg po daily. Pt's K+ is 3.8, SrCr is 0.66, CrCl is 74.74, and BUN is 21. Please continue to monitor. Pt's average BP is 121.75/66. Please continue to monitor. 8) Stroke/DVT Prophylaxis: Aspirin 81mg po bid thru 11/20/2019, then daily. Please continue to monitor for signs/symptoms of bruising/bleeding and/or clot. Psychotropic Medications: none Unnecessary Medications: none Bowel Regimen: Bisacodyl 10mg po daily prn for constipation, Miralax 17gm po daily, Senna/Docusate 2 tablets po bid. Please continue to monitor prn usage and for signs/symptoms of constipation/diarrhea. Date of Note:: 10/23/19 - Provider Comments Provider responsibility: Provider responsible to enter orders to implement recommendations <Garett Dunlap Chi - Last Filed: 10/23/19 13:11> Progress Note - Pharmacy Subjective: [] Objective: Allergies chocolate flavor Adverse Reaction (Unknown, Verified 10/17/19 14:36) Other headache Pork/Porcine Containing Products Adverse Reaction (Unknown, Verified 10/17/19 14:36) Other headache atorvastatin [From Lipitor] Adverse Reaction (Verified 10/17/19 14:36) Other stomach issues oxybutynin Adverse Reaction (Verified 10/17/19 14:36) Other Current Medications Generic Name Dose Route Start Last Admin Trade Name Freq PRN Reason Stop Dose Admin Acetaminophen 1,000 mg 10/21/19 22:00 10/23/19 12:58 Tylenol PO 1,000 mg Q8 [facility] Administration Amlodipine Besylate 5 mg 10/22/19 06:00 10/23/19 05:56 Norvasc PO 5 mg DAILY [facility] Administration Aspirin 81 mg 10/21/19 17:00 10/23/19 09:00 Aspirin, Baby PO 11/22/19 23:59 81 mg BIDCM [facility] Administration Aspirin 81 mg 11/23/19 08:00 Aspirin, Baby PO DAILY@0800 [facility] Bisacodyl 10 mg 10/21/19 20:31 Dulcolax PO DAILY PRN PRN Constipation Calamine/Phenol 1 applic 10/21/19 18:00 10/23/19 06:02 Calmoseptine Ointment TOPICAL 1 applicatio BID [facility] Administration Protocol Calcium Carbonate 500 mg 10/22/19 08:00 10/23/19 09:00 Os-Isaiah 500 PO 500 mg DAILY@0800 [facility] Administration Cholecalciferol 2,000 unit 10/22/19 06:00 10/23/19 05:59 Vitamin D (25mcg) PO 2,000 unit DAILY [facility] Administration Cyanocobalamin 1,000 mcg 10/23/19 08:00 10/23/19 09:01 Vitamin B12 PO 1,000 mcg QODAY@0800 [facility] Administration Emollient Ointment 1 applic 10/21/19 22:00 10/23/19 05:57 Eucerin Intensive Repair TOPICAL 1 applicatio 0600,2200 [facility] Administration Protocol Ferrous Sulfate 325 mg 10/21/19 17:00 10/23/19 11:10 Ferrous Sulfate PO 325 mg 1200,1700 [facility] Administration Galantamine Hydrobromide 4 mg 10/21/19 17:00 10/23/19 09:00 Razadyne PO 4 mg BIDCM [facility] Administration Lisinopril 10 mg 10/22/19 06:00 10/23/19 05:56 Zestril PO 10 mg DAILY [facility] Administration Multivitamins/Minerals 1 tablet 10/22/19 08:00 10/23/19 09:00 Multivitamin With Minerals (Bkc) PO 1 tablet DAILY@0800 [facility] Administration Nutritional Formula (Lactose Free) 120 ml 10/21/19 17:00 10/23/19 11:10 Glucerna Shake PO 120 ml 4X/DAY [facility] Administration Nystatin 1 applic 10/21/19 22:00 10/23/19 05:56 Mycostatin Powder TOPICAL 1 applicatio 0600,2200 [facility] Administration Protocol Ewtdt-3-Qkdb Ethyl Esters 1 gm 10/22/19 06:00 10/23/19 05:56 Lovaza PO 1 gm DAILY [facility] Administration Oxycodone HCl 5 mg 10/21/19 15:31 10/23/19 11:26 Oxyir PO 5 mg Q4H PRN PRN Administration Pain Score 6-10/10 Polyethylene Glycol 17 gm 10/22/19 06:00 10/23/19 05:56 Miralax PO 17 gm DAILY [facility] Administration Rizatriptan Benzoate 10 mg 10/21/19 17:10 Maxalt PO DAILY PRN PRN MIGRAINE SYMPTOMS Rosuvastatin Calcium 10 mg 10/21/19 22:00 10/22/19 21:37 Crestor PO 10 mg QHS [facility] Administration Senna/Docusate Sodium 2 tablet 10/22/19 06:00 10/23/19 05:56 Senokot-S, Leslye-Colace PO 2 tablet BID [facility] Administration Tuberculin PPD 5 tu 10/29/19 10:00 Tubersol, Aplisol, Ppd ID 10/29/19 10:01 X1 ONE Vitamin E 400 units 10/22/19 06:00 10/23/19 05:56 Vitamin E PO 400 units DAILY [facility] Administration Problem List (Last Reviewed 02/01/18 @ 06:[address] Royer Maxwell MD) Fall (Acute) Vital Signs Temp Pulse Resp BP Pulse Ox 96.7 F L 88 18 108/53 L 94 10/22/19 15:18 10/23/19 06:05 10/22/19 15:18 10/23/19 06:05 10/23/19 11:13 Oxygen Delivery Method Room Air Weight: 100.3 kg Body Mass Index (BMI) 26.9 Finger Stick Blood Glucose 140 Sodium 137 mmol/L (136-145) 10/22/19 06:25 Potassium 3.8 mmol/L (3.5-5.1) 10/22/19 06:25 Chloride 106 mmol/L (98-107) 10/22/19 06:25 Carbon Dioxide 25.0 mmol/L (21.0-32.0) 10/22/19 06:25 Anion Gap 6 (5-15) 10/22/19 06:25 BUN 21 mg/dL (7-18) H 10/22/19 06:25 Creatinine 0.66 mg/dL (0.70-1.30) L 10/22/19 06:25 Est GFR (MDRD) Af Amer 150 mL/min (>60) 10/22/19 06:25 Est GFR (MDRD) Non-Af 124 mL/min (>60) 10/22/19 06:25 BUN/Creatinine Ratio 31.8 RATIO (10-20) H 10/22/19 06:25 Glucose 151 mg/dL (74-106) H 10/22/19 06:25 Assessment/Plan: Psychotropic Medications: Unnecessary Medications: Bowel Regimen: - Provider Comments Provider responsibility: Provider responsible to enter orders to implement recommendations Provider Comments to Recommendations by Pharmacy: Agree
[2019-10-23] MEDS: Ferrous Sulfate 325 MG Tablet PO ×2 (11:10→17:19)
[2019-10-23 11:13] VITALS: O2SAT 94
[2019-10-23 14:33] VITALS: BP 110/60; PULSE 71; RESP 17; TEMP 36.5; O2SAT 96
[2019-10-24] MEDS: Omega-3 Acid Ethyl Esters 1 GM Capsule PO (06:00)
[2019-10-24] MEDS: Acetaminophen 500 MG Tablet 1000 MG PO ×3 (06:00→20:43)
[2019-10-24] MEDS: Polyethylene Glycol 3350 17 GM PACKET PO (06:00)
[2019-10-24] MEDS: Vitamin E 400 UNITS Capsule PO (06:00)
[2019-10-24] MEDS: Lisinopril 10 MG Tablet PO (06:00)
[2019-10-24] MEDS: oxyCODONE 5 MG Tablet PO ×2 (06:00→15:35)
[2019-10-24] MEDS: amLODIPine 5 MG Tablet PO (06:00)
[2019-10-24] MEDS: Glucerna Shake 120 ML LIQUID PO ×4 (06:00→20:44)
[2019-10-24] MEDS: Senna/Docusate Sodium 1 Tablet 2 TABLET PO ×2 (06:02→16:27)
[2019-10-24] MEDS: Nystatin Powder 15gm Bottle 1 APPLIC TOPICAL ×2 (06:05→20:44)
[2019-10-24] MEDS: Menthol/Lanolin/Calamine/Znox 113 GM Tube 1 APPLIC TOPICAL ×2 (06:05→16:28)
[2019-10-24 07:19] LABS: Absolute Lymphocyte Count 0.95 X10^3/uL (0.83-4.51); Absolute Neutrophil Count 5.6 X10^3/uL (2.0-7.7); Basophil# 0.03 X10^3/uL; Basophil% 0.4 % (0-1); Eosinophils% 1.4 % (0-5); Hematocrit 27.2 % (40-54); Hemoglobin 8.9 g/dL (13.0-16.5); Lymphocyte # 0.95 X10^3/ul (4.0); Lymphocyte % 13.3 % (19-41); Mean Corp Hgb Conc 32.7 g/dL (32-36); Mean Corpuscular Hgb 30.8 pg (27.0-32.0); Mean Corpuscular Volume 94.1 fL (80-94); Mean Platelet Vol. 11.1 fl (6.2-12.0); Monocyte# 0.38 X10^3/uL; Monocyte% 5.3 % (0-10); NRBC Flagged by Analyzer 0 % (0-5); Neutrophil # 5.63 X10^3/uL (2.7-7.7); Neutrophil % 79.2 % (47-70); Platelet Count 142 K/mm3 (150-450); RBC Distribution Width CV 13.4 % (11.6-14.6); RBC Distribution Width SD 45.5 fl (35.1-43.9); Red Blood Count 2.89 M/mm3 (4.6-6.2); White Blood Count 7.1 K/mm3 (4.4-11.0)
[2019-10-24 07:41] LABS: Anion Gap 7 (5-15); BUN 25 mg/dL (7-18); BUN/Creat Ratio 31.8 RATIO (10-20); Calcium,Total 8.3 mg/dL (8.5-10.1); Chloride 104 mmol/L (98-107); Creatinine, Serum 0.79 mg/dL (0.70-1.30); EST Glomerular Filtration Rate 101 mL/min (>60); Est Glom Filt Rate - Afr Amer 122 mL/min (>60); Estimated Creatinine Clearance 74.74 ml/min; Glucose 193 mg/dL (74-106); Potassium 4.2 mmol/L (3.5-5.1); Sodium Level 137 mmol/L (136-145)
[2019-10-24] MEDS: Calcium (Elemental) 500 MG Tablet PO (08:06)
[2019-10-24] MEDS: Galantamine Hydrobromide 4 MG Tablet PO ×2 (08:07→16:27)
[2019-10-24] MEDS: Aspirin 81 MG TAB.CHEW PO ×2 (08:07→16:27)
[2019-10-24] MEDS: Multivitamins,Ther W-Minerals Tablet 1 TABLET PO (08:07)
[2019-10-24] MEDS: Ferrous Sulfate 325 MG Tablet PO ×2 (10:52→16:27)
[2019-10-24 11:02] VITALS: PULSE 70
[2019-10-24 14:43] VITALS: BP 129/57; PULSE 50; RESP 18; TEMP 36.8; O2SAT 95
[2019-10-24 17:40] VITALS: PULSE 92
[2019-10-25] MEDS: Vitamin E 400 UNITS Capsule PO (05:42)
[2019-10-25] MEDS: Lisinopril 10 MG Tablet PO (05:42)
[2019-10-25] MEDS: Polyethylene Glycol 3350 17 GM PACKET PO (05:42)
[2019-10-25] MEDS: Glucerna Shake 120 ML LIQUID PO ×4 (05:42→22:36)
[2019-10-25] MEDS: Acetaminophen 500 MG Tablet 1000 MG PO ×3 (05:43→22:40)
[2019-10-25] MEDS: Omega-3 Acid Ethyl Esters 1 GM Capsule PO (05:43)
[2019-10-25] MEDS: amLODIPine 5 MG Tablet PO (05:43)
[2019-10-25] MEDS: Senna/Docusate Sodium 1 Tablet 2 TABLET PO ×2 (05:45→16:59)
[2019-10-25] MEDS: Nystatin Powder 15gm Bottle 1 APPLIC TOPICAL ×2 (05:46→22:37)
[2019-10-25] MEDS: Menthol/Lanolin/Calamine/Znox 113 GM Tube 1 APPLIC TOPICAL ×2 (05:46→17:02)
[2019-10-25] MEDS: Aspirin 81 MG TAB.CHEW PO ×2 (08:48→16:59)
[2019-10-25] MEDS: Cyanocobalamin 500 MCG Tablet 1000 MCG PO (08:48)
[2019-10-25] MEDS: Galantamine Hydrobromide 4 MG Tablet PO ×2 (08:48→17:00)
[2019-10-25] MEDS: Multivitamins,Ther W-Minerals Tablet 1 TABLET PO (08:48)
[2019-10-25] MEDS: Calcium (Elemental) 500 MG Tablet PO (08:57)
[2019-10-25 10:00] VITALS: PULSE 70; RESP 16; O2SAT 97
[2019-10-25] MEDS: Ferrous Sulfate 325 MG Tablet PO ×2 (11:05→16:59)
[2019-10-25 14:43] VITALS: BP 142/55; PULSE 52; RESP 16; TEMP 36.9; O2SAT 97
[2019-10-25 17:12] VITALS: PULSE 62
[2019-10-25] MEDS: oxyCODONE 5 MG Tablet PO (22:39)
[2019-10-26] MEDS: amLODIPine 5 MG Tablet PO (04:34)
[2019-10-26] MEDS: Senna/Docusate Sodium 1 Tablet 2 TABLET PO ×2 (04:34→21:31)
[2019-10-26] MEDS: Lisinopril 10 MG Tablet PO (04:34)
[2019-10-26] MEDS: Omega-3 Acid Ethyl Esters 1 GM Capsule PO (04:35)
[2019-10-26] MEDS: Vitamin E 400 UNITS Capsule PO (04:35)
[2019-10-26] MEDS: Glucerna Shake 120 ML LIQUID PO ×3 (04:35→17:38)
[2019-10-26] MEDS: Polyethylene Glycol 3350 17 GM PACKET PO (04:35)
[2019-10-26] MEDS: Acetaminophen 500 MG Tablet 1000 MG PO ×3 (04:36→21:32)
[2019-10-26] MEDS: Menthol/Lanolin/Calamine/Znox 113 GM Tube 1 APPLIC TOPICAL ×2 (04:38→21:34)
[2019-10-26] MEDS: Nystatin Powder 15gm Bottle 1 APPLIC TOPICAL ×2 (04:38→21:34)
[2019-10-26] MEDS: Calcium (Elemental) 500 MG Tablet PO (08:53)
[2019-10-26] MEDS: Multivitamins,Ther W-Minerals Tablet 1 TABLET PO (08:53)
[2019-10-26] MEDS: Galantamine Hydrobromide 4 MG Tablet PO ×2 (08:53→17:39)
[2019-10-26] MEDS: Aspirin 81 MG TAB.CHEW PO ×2 (08:53→17:39)
[2019-10-26] MEDS: Ferrous Sulfate 325 MG Tablet PO ×2 (10:59→17:39)
[2019-10-26] MEDS: oxyCODONE 5 MG Tablet PO (12:33)
[2019-10-26 16:00] VITALS: BP 124/65; PULSE 81; RESP 16; TEMP 37.4; O2SAT 93
[2019-10-27] MEDS: oxyCODONE 5 MG Tablet PO ×3 (03:57→16:20)
[2019-10-27] MEDS: Nystatin Powder 15gm Bottle 1 APPLIC TOPICAL ×2 (05:39→21:48)
[2019-10-27] MEDS: Menthol/Lanolin/Calamine/Znox 113 GM Tube 1 APPLIC TOPICAL ×2 (05:39→16:22)
[2019-10-27] MEDS: Omega-3 Acid Ethyl Esters 1 GM Capsule PO (05:40)
[2019-10-27] MEDS: Acetaminophen 500 MG Tablet 1000 MG PO ×3 (05:40→21:47)
[2019-10-27] MEDS: Lisinopril 10 MG Tablet PO (05:40)
[2019-10-27] MEDS: Vitamin E 400 UNITS Capsule PO (05:41)
[2019-10-27] MEDS: amLODIPine 5 MG Tablet PO (05:41)
[2019-10-27] MEDS: Senna/Docusate Sodium 1 Tablet 2 TABLET PO ×2 (05:42→16:21)
[2019-10-27 05:43] VITALS: BP 136/51; PULSE 70
[2019-10-27] MEDS: Galantamine Hydrobromide 4 MG Tablet PO ×2 (08:19→16:21)
[2019-10-27] MEDS: Aspirin 81 MG TAB.CHEW PO ×2 (08:19→16:20)
[2019-10-27] MEDS: Multivitamins,Ther W-Minerals Tablet 1 TABLET PO (08:19)
[2019-10-27] MEDS: Calcium (Elemental) 500 MG Tablet PO (08:19)
[2019-10-27] MEDS: Cyanocobalamin 500 MCG Tablet 1000 MCG PO (08:20)
--- NOTE | 2019-10-27 09:04 | NURSING ---
pt wanting oxy this am and c/o lt heel pain. lt heel intact though reddened. up off bed on rolled towel and pt reports that feels much relief
[2019-10-27] MEDS: Ferrous Sulfate 325 MG Tablet PO ×2 (13:03→16:20)
[2019-10-27] MEDS: Glucerna Shake 120 ML LIQUID PO ×3 (13:03→21:46)
[2019-10-27 15:39] VITALS: BP 124/69; PULSE 72; RESP 16; TEMP 36.7; O2SAT 93
--- NOTE | 2019-10-27 17:45 | NURSING ---
Addendum entered by Mago Casillas 10/27/19 18:48: Redness marked around each incision and updated. Original Note: Dr. Dunlap updated about redness to all three surgical incisions, no drainage noted. N.O. received.
[2019-10-27] MEDS: Doxycycline 100 MG CAPSULE PO (18:44)
[2019-10-27] MEDS: Cephalexin 500 MG Capsule PO (18:44)
[2019-10-28] MEDS: oxyCODONE 5 MG Tablet PO ×4 (01:54→17:26)
[2019-10-28] MEDS: Cephalexin 500 MG Capsule PO ×2 (05:11→18:39)
[2019-10-28] MEDS: Glucerna Shake 120 ML LIQUID PO ×4 (05:11→22:55)
[2019-10-28] MEDS: Senna/Docusate Sodium 1 Tablet 2 TABLET PO ×2 (05:11→18:53)
[2019-10-28] MEDS: Acetaminophen 500 MG Tablet 1000 MG PO ×3 (05:11→22:57)
[2019-10-28] MEDS: Doxycycline 100 MG CAPSULE PO ×2 (05:11→18:39)
[2019-10-28] MEDS: Lisinopril 10 MG Tablet PO (05:12)
[2019-10-28] MEDS: Omega-3 Acid Ethyl Esters 1 GM Capsule PO (05:12)
[2019-10-28] MEDS: Vitamin E 400 UNITS Capsule PO (05:12)
[2019-10-28] MEDS: amLODIPine 5 MG Tablet PO (05:12)
[2019-10-28] MEDS: Nystatin Powder 15gm Bottle 1 APPLIC TOPICAL ×2 (05:14→22:57)
[2019-10-28] MEDS: Menthol/Lanolin/Calamine/Znox 113 GM Tube 1 APPLIC TOPICAL ×2 (05:15→18:40)
[2019-10-28] MEDS: Calcium (Elemental) 500 MG Tablet PO (09:00)
[2019-10-28] MEDS: Ferrous Sulfate 325 MG Tablet PO ×2 (09:00→18:41)
[2019-10-28] MEDS: Aspirin 81 MG TAB.CHEW PO ×2 (09:00→18:41)
[2019-10-28] MEDS: Galantamine Hydrobromide 4 MG Tablet PO ×2 (09:00→18:40)
[2019-10-28] MEDS: Multivitamins,Ther W-Minerals Tablet 1 TABLET PO (09:01)
--- NOTE | 2019-10-28 11:44 | MDS.RN ---
resident's , Jesika, called, scheduled care plan phone conference, this RN updated resident started on oral ATB for incision redness. appreciative of update
--- NOTE | 2019-10-28 15:10 | NURSING ---
Resident called Jesika Torres. Updated on resident status and appreciative of update. Called Ariela, Dr. Davy Myers's nurse and made her aware of increased pain and discomfort in L hip.
[2019-10-28 16:24] VITALS: BP 132/70; PULSE 71; RESP 14; TEMP 36.7; O2SAT 95
[2019-10-28 16:30] LABS: Absolute Lymphocyte Count 1.79 X10^3/uL (0.83-4.51); Absolute Neutrophil Count 3.6 X10^3/uL (2.0-7.7); Basophil# 0.03 X10^3/uL; Basophil% 0.5 % (0-1); Eosinophil# 0.11 X10^3/uL; Eosinophils% 1.9 % (0-5); Hematocrit 31.4 % (40-54); Hemoglobin 10.3 g/dL (13.0-16.5); Lymphocyte # 1.79 X10^3/ul (4.0); Lymphocyte % 30.7 % (19-41); Mean Corp Hgb Conc 32.8 g/dL (32-36); Mean Corpuscular Hgb 30.1 pg (27.0-32.0); Mean Corpuscular Volume 91.8 fL (80-94); Mean Platelet Vol. 10.2 fl (6.2-12.0); Monocyte# 0.34 X10^3/uL; Monocyte% 5.8 % (0-10); NRBC Flagged by Analyzer 0 % (0-5); Neutrophil # 3.55 X10^3/uL (2.7-7.7); Neutrophil % 60.8 % (47-70); Platelet Count 262 K/mm3 (150-450); RBC Distribution Width CV 13.9 % (11.6-14.6); RBC Distribution Width SD 44.9 fl (35.1-43.9); Red Blood Count 3.42 M/mm3 (4.6-6.2); White Blood Count 5.8 K/mm3 (4.4-11.0)
[2019-10-29] MEDS: Glucerna Shake 120 ML LIQUID PO ×4 (05:13→21:35)
[2019-10-29] MEDS: Omega-3 Acid Ethyl Esters 1 GM Capsule PO (05:14)
[2019-10-29] MEDS: amLODIPine 5 MG Tablet PO (05:14)
[2019-10-29] MEDS: Polyethylene Glycol 3350 17 GM PACKET PO (05:14)
[2019-10-29] MEDS: Lisinopril 10 MG Tablet PO (05:14)
[2019-10-29] MEDS: oxyCODONE 5 MG Tablet PO ×3 (05:14→21:34)
[2019-10-29] MEDS: Vitamin E 400 UNITS Capsule PO (05:14)
[2019-10-29] MEDS: Doxycycline 100 MG CAPSULE PO ×2 (05:14→17:22)
[2019-10-29] MEDS: Cephalexin 500 MG Capsule PO ×2 (05:14→17:22)
[2019-10-29] MEDS: Acetaminophen 500 MG Tablet 1000 MG PO ×3 (05:16→21:34)
[2019-10-29] MEDS: Nystatin Powder 15gm Bottle 1 APPLIC TOPICAL ×2 (05:19→21:38)
[2019-10-29] MEDS: Senna/Docusate Sodium 1 Tablet 2 TABLET PO ×2 (05:19→17:22)
[2019-10-29] MEDS: Menthol/Lanolin/Calamine/Znox 113 GM Tube 1 APPLIC TOPICAL ×2 (05:19→17:22)
[2019-10-29 06:56] LABS: Absolute Lymphocyte Count 1.47 X10^3/uL (0.83-4.51); Absolute Neutrophil Count 3.8 X10^3/uL (2.0-7.7); Basophil# 0.03 X10^3/uL; Basophil% 0.5 % (0-1); Eosinophil# 0.16 X10^3/uL; Eosinophils% 2.7 % (0-5); Hematocrit 31.4 % (40-54); Hemoglobin 10.1 g/dL (13.0-16.5); Lymphocyte # 1.47 X10^3/ul (4.0); Lymphocyte % 25.2 % (19-41); Mean Corp Hgb Conc 32.2 g/dL (32-36); Mean Corpuscular Hgb 31.2 pg (27.0-32.0); Mean Corpuscular Volume 96.9 fL (80-94); Mean Platelet Vol. 10.3 fl (6.2-12.0); Monocyte# 0.33 X10^3/uL; Monocyte% 5.7 % (0-10); NRBC Flagged by Analyzer 0 % (0-5); Neutrophil # 3.81 X10^3/uL (2.7-7.7); Neutrophil % 65.4 % (47-70); Platelet Count 230 K/mm3 (150-450); RBC Distribution Width CV 14.6 % (11.6-14.6); RBC Distribution Width SD 48.1 fl (35.1-43.9); Red Blood Count 3.24 M/mm3 (4.6-6.2); White Blood Count 5.8 K/mm3 (4.4-11.0)
[2019-10-29 07:05] LABS: Anion Gap 5 (5-15); BUN 22 mg/dL (7-18); Calcium,Total 8.8 mg/dL (8.5-10.1); Chloride 105 mmol/L (98-107); Creatinine, Serum 0.85 mg/dL (0.70-1.30); EST Glomerular Filtration Rate 93 mL/min (>60); Est Glom Filt Rate - Afr Amer 112 mL/min (>60); Estimated Creatinine Clearance 87.93 ml/min; Glucose 139 mg/dL (74-106); Potassium 4.3 mmol/L (3.5-5.1); Sodium Level 137 mmol/L (136-145)
[2019-10-29] MEDS: Aspirin 81 MG TAB.CHEW PO ×2 (08:43→17:22)
[2019-10-29] MEDS: Calcium (Elemental) 500 MG Tablet PO (08:44)
[2019-10-29] MEDS: Multivitamins,Ther W-Minerals Tablet 1 TABLET PO (08:44)
[2019-10-29] MEDS: Galantamine Hydrobromide 4 MG Tablet PO ×2 (08:45→17:22)
[2019-10-29] MEDS: Cyanocobalamin 500 MCG Tablet 1000 MCG PO (08:45)
[2019-10-29] MEDS: Tuberculin,Purif.prot.deriv. 50 TU/ML Vial 5 ML ID (10:07)
[2019-10-29] MEDS: Ferrous Sulfate 325 MG Tablet PO ×2 (11:34→17:22)
[2019-10-29 14:17] VITALS: BP 132/65; PULSE 71; RESP 18; TEMP 37.1; O2SAT 95
--- NOTE | 2019-10-29 14:35 | CASEMGMT ---
Social Work Provided card of prayers and encouragement from community member to pt. Pt appreciative. Alissa Pacheco, CHARTER COACH DRIVER FUR TINTER
--- NOTE | 2019-10-29 14:39 | NURSING ---
SPOKE WITH R' ON PHONE. UPDATED HER. ALSO, NOTIFIED HER OF PRECAUTIONARY COVID TEST.
--- NOTE | 2019-10-29 17:16 | NURSING ---
SSE GIVEN. R' TOLERATED WELL WITH POSITIVE RESULTS. LG, SOFT BM.
[2019-10-30] MEDS: Polyethylene Glycol 3350 17 GM PACKET PO (05:12)
[2019-10-30] MEDS: amLODIPine 5 MG Tablet PO (05:12)
[2019-10-30] MEDS: Glucerna Shake 120 ML LIQUID PO ×4 (05:12→20:42)
[2019-10-30] MEDS: Cephalexin 500 MG Capsule PO ×2 (05:13→17:55)
[2019-10-30] MEDS: Lisinopril 10 MG Tablet PO (05:13)
[2019-10-30] MEDS: Doxycycline 100 MG CAPSULE PO ×2 (05:13→17:55)
[2019-10-30] MEDS: Menthol/Lanolin/Calamine/Znox 113 GM Tube 1 APPLIC TOPICAL ×3 (05:13→20:47)
[2019-10-30] MEDS: Nystatin Powder 15gm Bottle 1 APPLIC TOPICAL ×2 (05:13→20:47)
[2019-10-30] MEDS: Acetaminophen 500 MG Tablet 1000 MG PO ×3 (05:13→20:46)
[2019-10-30] MEDS: Vitamin E 400 UNITS Capsule PO (05:13)
[2019-10-30] MEDS: Omega-3 Acid Ethyl Esters 1 GM Capsule PO (05:13)
[2019-10-30] MEDS: oxyCODONE 5 MG Tablet PO ×4 (05:13→17:52)
[2019-10-30] MEDS: Senna/Docusate Sodium 1 Tablet 2 TABLET PO ×2 (05:17→18:41)
[2019-10-30] MEDS: Aspirin 81 MG TAB.CHEW PO ×2 (08:43→17:55)
[2019-10-30] MEDS: Calcium (Elemental) 500 MG Tablet PO (08:43)
[2019-10-30] MEDS: Galantamine Hydrobromide 4 MG Tablet PO ×2 (08:43→17:55)
[2019-10-30] MEDS: Multivitamins,Ther W-Minerals Tablet 1 TABLET PO (08:44)
[2019-10-30 10:00] VITALS: PULSE 74; RESP 16; O2SAT 97
[2019-10-30] MEDS: Ferrous Sulfate 325 MG Tablet PO ×2 (11:15→17:55)
--- NOTE | 2019-10-30 11:40 | CASEMGMT ---
Social Work IDT met with patient and via conference call for care plan meeting. Discussed patient's progress in therapy. Pt is max assist x2-3 for bed mobility, rachell transfers, attempted to stand at grab bar max x2 but unable to maintain PWBS. Pt is SBA for UE bathing, min for UE dressing, dependent for LE bathing and dressing, dependent for toileting at bed level. Pt is on a [facility] soft/thin diet, cardiac 2000 diet, accepting of med pass, intake 25-100%. Updated pt's dietary preferences. ST working on pharyngeal strengthening, external memory aides, sequencing. will continue to assist with medications and finances at [place]. Pt is out of room isolation 11/03, COVID swab 10/28. Pt on oral ATB for some redness about incision site. Explained Medicare benefit. Pt to follow up with neurologist in [place], Dr. Mccabe, 12/31 at 9 am. Pt goal is to return home. Will continue to follow. Alissa Pacheco, SALES ENGINEER LAYOUT MECHANIC
--- NOTE | 2019-10-30 13:03 | MDS.RN ---
Information for the mds was obtained from review of the clinical record, interview of resident, staff, and direct observation of resident's care.
[2019-10-30 16:00] VITALS: BP 114/60; PULSE 62; RESP 16; TEMP 37.2; O2SAT 97
[2019-10-31] MEDS: Vitamin E 400 UNITS Capsule PO (04:39)
[2019-10-31] MEDS: Doxycycline 100 MG CAPSULE PO ×2 (04:40→17:04)
[2019-10-31] MEDS: Polyethylene Glycol 3350 17 GM PACKET PO (04:40)
[2019-10-31] MEDS: Cephalexin 500 MG Capsule PO ×2 (04:40→17:04)
[2019-10-31] MEDS: Omega-3 Acid Ethyl Esters 1 GM Capsule PO (04:40)
[2019-10-31] MEDS: Acetaminophen 500 MG Tablet 1000 MG PO ×3 (04:40→22:09)
[2019-10-31] MEDS: Lisinopril 10 MG Tablet PO (04:40)
[2019-10-31] MEDS: amLODIPine 5 MG Tablet PO (04:40)
[2019-10-31] MEDS: Nystatin Powder 15gm Bottle 1 APPLIC TOPICAL ×2 (04:41→22:13)
[2019-10-31] MEDS: Senna/Docusate Sodium 1 Tablet 2 TABLET PO ×2 (04:44→17:08)
[2019-10-31] MEDS: Multivitamins,Ther W-Minerals Tablet 1 TABLET PO (08:50)
[2019-10-31] MEDS: Aspirin 81 MG TAB.CHEW PO ×2 (08:51→17:04)
[2019-10-31] MEDS: Calcium (Elemental) 500 MG Tablet PO (08:51)
[2019-10-31] MEDS: Cyanocobalamin 500 MCG Tablet 1000 MCG PO (08:52)
[2019-10-31] MEDS: Galantamine Hydrobromide 4 MG Tablet PO ×2 (08:52→17:04)
[2019-10-31] MEDS: oxyCODONE 5 MG Tablet PO ×3 (08:55→22:10)
[2019-10-31] MEDS: Ferrous Sulfate 325 MG Tablet PO ×2 (11:05→17:04)
[2019-10-31] MEDS: Glucerna Shake 120 ML LIQUID PO ×3 (11:05→22:09)
[2019-10-31 14:31] VITALS: BP 119/67; PULSE 66; RESP 14; TEMP 36.8; O2SAT 92
[2019-10-31] MEDS: Menthol/Lanolin/Calamine/Znox 113 GM Tube 1 APPLIC TOPICAL (17:10)
[2019-11-01] MEDS: Polyethylene Glycol 3350 17 GM PACKET PO (05:24)
[2019-11-01] MEDS: Omega-3 Acid Ethyl Esters 1 GM Capsule PO (05:25)
[2019-11-01] MEDS: Lisinopril 10 MG Tablet PO (05:25)
[2019-11-01] MEDS: Cephalexin 500 MG Capsule PO ×2 (05:26→17:13)
[2019-11-01] MEDS: Doxycycline 100 MG CAPSULE PO ×2 (05:26→17:12)
[2019-11-01] MEDS: Glucerna Shake 120 ML LIQUID PO ×4 (05:26→20:27)
[2019-11-01] MEDS: Acetaminophen 500 MG Tablet 1000 MG PO ×3 (05:26→20:25)
[2019-11-01] MEDS: oxyCODONE 5 MG Tablet PO ×3 (05:26→17:13)
[2019-11-01] MEDS: amLODIPine 5 MG Tablet PO (05:27)
[2019-11-01] MEDS: Vitamin E 400 UNITS Capsule PO (05:28)
[2019-11-01] MEDS: Nystatin Powder 15gm Bottle 1 APPLIC TOPICAL ×2 (05:29→20:28)
[2019-11-01] MEDS: Senna/Docusate Sodium 1 Tablet 2 TABLET PO (05:31)
[2019-11-01] MEDS: Menthol/Lanolin/Calamine/Znox 113 GM Tube 1 APPLIC TOPICAL ×2 (05:34→17:13)
[2019-11-01] MEDS: Galantamine Hydrobromide 4 MG Tablet PO ×2 (08:28→17:12)
[2019-11-01] MEDS: Multivitamins,Ther W-Minerals Tablet 1 TABLET PO (08:28)
[2019-11-01] MEDS: Aspirin 81 MG TAB.CHEW PO ×2 (08:28→17:11)
[2019-11-01] MEDS: Calcium (Elemental) 500 MG Tablet PO (08:28)
--- NOTE | 2019-11-01 09:03 | NS ---
Message from social services to contact res d/t wanting to order menus for res - she had been doing this daily on his last adm. Not able to do this now d/t COVID restrictions. Encouraged to call tally office the day prior with meal orders. Left copy of menu for breakfast, lunch and dinner for her at main entrance to use from home to help w/ ordering. She is agreeable to this idea.
[2019-11-01] MEDS: Ferrous Sulfate 325 MG Tablet PO ×2 (12:15→17:12)
--- NOTE | 2019-11-01 14:12 | NURSING ---
speech in to work with pt and at end of session assisted pt in calling . also assisted with ordering dinner for helena
[2019-11-01 14:46] VITALS: BP 126/63; PULSE 67; RESP 20; TEMP 36.7; O2SAT 97
[2019-11-02] MEDS: Acetaminophen 500 MG Tablet 1000 MG PO ×3 (05:24→20:18)
[2019-11-02] MEDS: Glucerna Shake 120 ML LIQUID PO ×3 (05:24→16:23)
[2019-11-02] MEDS: Nystatin Powder 15gm Bottle 1 APPLIC TOPICAL ×2 (05:24→20:09)
[2019-11-02] MEDS: Lisinopril 10 MG Tablet PO (05:24)
[2019-11-02] MEDS: amLODIPine 5 MG Tablet PO (05:25)
[2019-11-02] MEDS: Cephalexin 500 MG Capsule PO ×2 (05:25→17:12)
[2019-11-02] MEDS: Omega-3 Acid Ethyl Esters 1 GM Capsule PO (05:25)
[2019-11-02] MEDS: Vitamin E 400 UNITS Capsule PO (05:25)
[2019-11-02] MEDS: Doxycycline 100 MG CAPSULE PO ×2 (05:25→17:12)
[2019-11-02] MEDS: Senna/Docusate Sodium 1 Tablet 2 TABLET PO ×2 (05:28→17:12)
[2019-11-02] MEDS: Menthol/Lanolin/Calamine/Znox 113 GM Tube 1 APPLIC TOPICAL ×2 (05:33→16:23)
[2019-11-02 05:34] VITALS: BP 104/54; PULSE 68
[2019-11-02] MEDS: Aspirin 81 MG TAB.CHEW PO ×2 (08:30→16:23)
[2019-11-02] MEDS: Cyanocobalamin 500 MCG Tablet 1000 MCG PO (08:31)
[2019-11-02] MEDS: Multivitamins,Ther W-Minerals Tablet 1 TABLET PO (08:31)
[2019-11-02] MEDS: Galantamine Hydrobromide 4 MG Tablet PO ×2 (08:31→16:23)
[2019-11-02] MEDS: Calcium (Elemental) 500 MG Tablet PO (08:32)
[2019-11-02] MEDS: oxyCODONE 5 MG Tablet PO ×2 (10:56→17:12)
[2019-11-02] MEDS: Ferrous Sulfate 325 MG Tablet PO ×2 (11:00→16:23)
[2019-11-02 14:28] VITALS: BP 128/68; PULSE 64; RESP 16; TEMP 36.6; O2SAT 97
[2019-11-03] MEDS: oxyCODONE 5 MG Tablet PO ×3 (00:14→17:44)
[2019-11-03] MEDS: Menthol/Lanolin/Calamine/Znox 113 GM Tube 1 APPLIC TOPICAL ×2 (05:09→17:44)
[2019-11-03] MEDS: Nystatin Powder 15gm Bottle 1 APPLIC TOPICAL ×2 (05:09→20:57)
[2019-11-03] MEDS: Glucerna Shake 120 ML LIQUID PO ×4 (05:09→20:56)
[2019-11-03] MEDS: Polyethylene Glycol 3350 17 GM PACKET PO (05:10)
[2019-11-03] MEDS: Omega-3 Acid Ethyl Esters 1 GM Capsule PO (05:11)
[2019-11-03] MEDS: Acetaminophen 500 MG Tablet 1000 MG PO ×3 (05:11→20:55)
[2019-11-03] MEDS: Vitamin E 400 UNITS Capsule PO (05:11)
[2019-11-03] MEDS: Lisinopril 10 MG Tablet PO (05:11)
[2019-11-03] MEDS: Senna/Docusate Sodium 1 Tablet 2 TABLET PO ×2 (05:11→17:48)
[2019-11-03] MEDS: Doxycycline 100 MG CAPSULE PO ×2 (05:11→17:44)
[2019-11-03] MEDS: Cephalexin 500 MG Capsule PO ×2 (05:12→17:44)
[2019-11-03] MEDS: amLODIPine 5 MG Tablet PO (05:12)
[2019-11-03 05:15] VITALS: BP 129/69; PULSE 64
[2019-11-03] MEDS: Galantamine Hydrobromide 4 MG Tablet PO ×2 (08:28→17:44)
[2019-11-03] MEDS: Calcium (Elemental) 500 MG Tablet PO (08:28)
[2019-11-03] MEDS: Aspirin 81 MG TAB.CHEW PO ×2 (08:28→17:44)
[2019-11-03] MEDS: Multivitamins,Ther W-Minerals Tablet 1 TABLET PO (08:28)
[2019-11-03 10:00] VITALS: PULSE 68; RESP 16; O2SAT 97
[2019-11-03] MEDS: Ferrous Sulfate 325 MG Tablet PO ×2 (11:26→17:44)
--- NOTE | 2019-11-03 12:08 | NURSING ---
Patient spoke with spouse while this nurse was in the room.
[2019-11-03 15:16] VITALS: BP 141/69; PULSE 80; RESP 16; TEMP 36.6; O2SAT 97
--- NOTE | 2019-11-04 02:15 | NURSING ---
Pt resting in bed, bipap in place, eyes closed, appears to be sleeping.
[2019-11-04] MEDS: Nystatin Powder 15gm Bottle 1 APPLIC TOPICAL ×2 (05:29→22:17)
[2019-11-04] MEDS: Menthol/Lanolin/Calamine/Znox 113 GM Tube 1 APPLIC TOPICAL ×2 (05:30→18:09)
[2019-11-04] MEDS: Senna/Docusate Sodium 1 Tablet 2 TABLET PO ×2 (05:35→18:09)
[2019-11-04] MEDS: Vitamin E 400 UNITS Capsule PO (05:36)
[2019-11-04] MEDS: amLODIPine 5 MG Tablet PO (05:36)
[2019-11-04] MEDS: Omega-3 Acid Ethyl Esters 1 GM Capsule PO (05:36)
[2019-11-04] MEDS: Acetaminophen 500 MG Tablet 1000 MG PO ×3 (05:36→22:15)
[2019-11-04] MEDS: Lisinopril 10 MG Tablet PO (05:36)
[2019-11-04] MEDS: Glucerna Shake 120 ML LIQUID PO ×4 (05:39→22:14)
[2019-11-04 05:41] VITALS: BP 146/63; PULSE 65
[2019-11-04] MEDS: Multivitamins,Ther W-Minerals Tablet 1 TABLET PO (10:57)
[2019-11-04] MEDS: Calcium (Elemental) 500 MG Tablet PO (10:57)
[2019-11-04] MEDS: Aspirin 81 MG TAB.CHEW PO ×2 (10:58→18:08)
[2019-11-04] MEDS: Galantamine Hydrobromide 4 MG Tablet PO ×2 (10:58→18:08)
[2019-11-04] MEDS: Cyanocobalamin 500 MCG Tablet 1000 MCG PO (10:58)
[2019-11-04] MEDS: oxyCODONE 5 MG Tablet PO ×3 (11:06→19:04)
[2019-11-04] MEDS: Ferrous Sulfate 325 MG Tablet PO ×2 (11:07→18:08)
--- NOTE | 2019-11-04 11:25 | NURSING ---
Resident on phone with at this time.
[2019-11-04 16:00] VITALS: BP 139/63; PULSE 68; RESP 18; TEMP 36.4; O2SAT 97
[2019-11-05 03:58] VITALS: BP 136/64; PULSE 62; RESP 18; TEMP 36.4; O2SAT 93
[2019-11-05] MEDS: Glucerna Shake 120 ML LIQUID PO ×4 (05:29→20:35)
[2019-11-05] MEDS: Nystatin Powder 15gm Bottle 1 APPLIC TOPICAL ×2 (05:29→20:38)
[2019-11-05] MEDS: Menthol/Lanolin/Calamine/Znox 113 GM Tube 1 APPLIC TOPICAL ×2 (05:30→17:47)
[2019-11-05] MEDS: Omega-3 Acid Ethyl Esters 1 GM Capsule PO (05:31)
[2019-11-05] MEDS: Acetaminophen 500 MG Tablet 1000 MG PO ×3 (05:31→20:36)
[2019-11-05] MEDS: amLODIPine 5 MG Tablet PO (05:31)
[2019-11-05] MEDS: Lisinopril 10 MG Tablet PO (05:32)
[2019-11-05] MEDS: Vitamin E 400 UNITS Capsule PO (05:32)
[2019-11-05] MEDS: Senna/Docusate Sodium 1 Tablet 2 TABLET PO ×2 (05:34→18:28)
[2019-11-05 06:06] LABS: Absolute Lymphocyte Count 1.83 X10^3/uL (0.83-4.51); Absolute Neutrophil Count 3.4 X10^3/uL (2.0-7.7); Basophil# 0.03 X10^3/uL; Basophil% 0.5 % (0-1); Eosinophil# 0.15 X10^3/uL; Eosinophils% 2.6 % (0-5); Hematocrit 33.8 % (40-54); Hemoglobin 10.7 g/dL (13.0-16.5); Lymphocyte # 1.83 X10^3/ul (4.0); Lymphocyte % 31.8 % (19-41); Mean Corp Hgb Conc 31.7 g/dL (32-36); Mean Corpuscular Volume 94.7 fL (80-94); Monocyte# 0.35 X10^3/uL; Monocyte% 6.1 % (0-10); NRBC Flagged by Analyzer 0 % (0-5); Neutrophil # 3.37 X10^3/uL (2.7-7.7); Neutrophil % 58.5 % (47-70); Platelet Count 208 K/mm3 (150-450); RBC Distribution Width CV 14.3 % (11.6-14.6); RBC Distribution Width SD 49.4 fl (35.1-43.9); Red Blood Count 3.57 M/mm3 (4.6-6.2); White Blood Count 5.8 K/mm3 (4.4-11.0)
[2019-11-05 06:31] LABS: Anion Gap 6 (5-15); BUN 24 mg/dL (7-18); BUN/Creat Ratio 32.1 RATIO (10-20); Calcium,Total 8.7 mg/dL (8.5-10.1); Chloride 104 mmol/L (98-107); Creatinine, Serum 0.75 mg/dL (0.70-1.30); EST Glomerular Filtration Rate 107 mL/min (>60); Est Glom Filt Rate - Afr Amer 130 mL/min (>60); Estimated Creatinine Clearance 74.74 ml/min; Glucose 101 mg/dL (74-106); Potassium 4.1 mmol/L (3.5-5.1); Sodium Level 138 mmol/L (136-145)
[2019-11-05] MEDS: Aspirin 81 MG TAB.CHEW PO ×2 (08:24→17:46)
[2019-11-05] MEDS: Calcium (Elemental) 500 MG Tablet PO (08:25)
[2019-11-05] MEDS: oxyCODONE 5 MG Tablet PO (08:25)
[2019-11-05] MEDS: Galantamine Hydrobromide 4 MG Tablet PO ×2 (08:25→17:46)
[2019-11-05] MEDS: Multivitamins,Ther W-Minerals Tablet 1 TABLET PO (08:25)
[2019-11-05] MEDS: Ferrous Sulfate 325 MG Tablet PO ×2 (12:08→17:45)
[2019-11-05 16:05] VITALS: BP 121/70; PULSE 66; RESP 16; TEMP 36.9; O2SAT 100
[2019-11-06 06:27] VITALS: BP 129/71; PULSE 63; RESP 18; TEMP 36.8; O2SAT 96
[2019-11-06] MEDS: Glucerna Shake 120 ML LIQUID PO ×4 (06:29→22:09)
[2019-11-06] MEDS: Menthol/Lanolin/Calamine/Znox 113 GM Tube 1 APPLIC TOPICAL ×3 (06:30→22:10)
[2019-11-06] MEDS: Nystatin Powder 15gm Bottle 1 APPLIC TOPICAL ×2 (06:30→22:10)
[2019-11-06] MEDS: Polyethylene Glycol 3350 17 GM PACKET PO (06:31)
[2019-11-06] MEDS: Acetaminophen 500 MG Tablet 1000 MG PO ×3 (06:31→22:09)
[2019-11-06] MEDS: Vitamin E 400 UNITS Capsule PO (06:31)
[2019-11-06] MEDS: Omega-3 Acid Ethyl Esters 1 GM Capsule PO (06:31)
[2019-11-06] MEDS: Senna/Docusate Sodium 1 Tablet 2 TABLET PO ×2 (06:32→22:12)
[2019-11-06] MEDS: amLODIPine 5 MG Tablet PO (06:32)
[2019-11-06] MEDS: Lisinopril 10 MG Tablet PO (06:32)
[2019-11-06] MEDS: Aspirin 81 MG TAB.CHEW PO ×2 (08:27→17:49)
[2019-11-06] MEDS: Galantamine Hydrobromide 4 MG Tablet PO ×2 (08:27→17:50)
[2019-11-06] MEDS: Calcium (Elemental) 500 MG Tablet PO (08:27)
[2019-11-06] MEDS: Multivitamins,Ther W-Minerals Tablet 1 TABLET PO (08:27)
[2019-11-06] MEDS: Cyanocobalamin 500 MCG Tablet 1000 MCG PO (08:27)
[2019-11-06] MEDS: oxyCODONE 5 MG Tablet PO (08:30)
[2019-11-06] MEDS: Ferrous Sulfate 325 MG Tablet PO ×2 (11:30→17:49)
--- NOTE | 2019-11-06 12:12 | NURSING ---
Resident continues to complain of L hip pain 10/10. Given 5mg Oxyir at 0830 and resident states his pain is still 10/10 at [address] Dunlap and given order for Oxyir 10mg every 4 hours as needed for pain. Resident made aware of new order.
[2019-11-06] MEDS: oxyCODONE 5 MG Tablet 10 MG PO (12:49)
[2019-11-06 15:26] VITALS: BP 112/62; PULSE 60; RESP 14; TEMP 36.7; O2SAT 94
[2019-11-06] MEDS: Mirtazapine 15 MG Tablet 7.5 MG PO (22:12)
[2019-11-07] MEDS: Acetaminophen 500 MG Tablet 1000 MG PO ×3 (06:10→22:00)
[2019-11-07] MEDS: Omega-3 Acid Ethyl Esters 1 GM Capsule PO (06:11)
[2019-11-07] MEDS: Polyethylene Glycol 3350 17 GM PACKET PO (06:11)
[2019-11-07] MEDS: Lisinopril 10 MG Tablet PO (06:11)
[2019-11-07] MEDS: amLODIPine 5 MG Tablet PO (06:11)
[2019-11-07] MEDS: Glucerna Shake 120 ML LIQUID PO ×4 (06:14→22:00)
[2019-11-07] MEDS: Vitamin E 400 UNITS Capsule PO (06:16)
[2019-11-07] MEDS: Senna/Docusate Sodium 1 Tablet 2 TABLET PO ×2 (06:16→18:07)
[2019-11-07] MEDS: oxyCODONE 5 MG Tablet 10 MG PO ×4 (06:18→22:09)
[2019-11-07] MEDS: Nystatin Powder 15gm Bottle 1 APPLIC TOPICAL ×2 (06:22→22:01)
[2019-11-07] MEDS: Multivitamins,Ther W-Minerals Tablet 1 TABLET PO (08:41)
[2019-11-07] MEDS: Calcium (Elemental) 500 MG Tablet PO (08:41)
[2019-11-07] MEDS: Galantamine Hydrobromide 4 MG Tablet PO ×2 (08:41→18:07)
[2019-11-07] MEDS: Aspirin 81 MG TAB.CHEW PO ×2 (08:41→18:07)
[2019-11-07] MEDS: Ferrous Sulfate 325 MG Tablet PO ×2 (11:18→18:08)
[2019-11-07 15:20] VITALS: BP 120/65; PULSE 60; RESP 14; TEMP 36.8; O2SAT 97
--- NOTE | 2019-11-07 17:44 | RAD_ITS ---
STUDY: X-RAY - PELVIS AND LEFT HIP REASON FOR EXAM: Male, 79 years old. UNCONTROLLABLE LEFT HIP PAIN -- S/P HIP FX AND SURGERY, FALL POST OP TECHNIQUE: 3 views of the pelvis and hip. COMPARISON: Criteria and pelvis radiographs of October 17, 2019 FINDINGS: There is a non-specific bowel gas pattern. Arterial calcifications. Normal bilateral iliac wings, sacroiliac joints and visualized sacrum. Normal bilateral superior and inferior pubic rami. Normal pubic symphysis. Normal bilateral ischial tuberosities. Status post repair of a comminuted left intertrochanteric fracture with a standard femoral head and neck lag screw interlocking to an intramedullary ivan with one distal interlocking screw. Femoral head remains rounded without evidence of avascular necrosis. Normal acetabulum. There is mild articular joint space narrowing of the hip. Negative for periprosthetic fracture. Status post right hip arthroplasty with no untoward bone, joint or hardware findings. RAD/HIP, UNI W/ Pelvis 2-3 Views IMPRESSION: Negative for pelvic fracture. Status post hardware repair of a comminuted intertrochanteric fracture of the right femur occurring on or around October 17, 2019. Negative for hardware disruption or periprosthetic fracture. Femoral head remains rounded without evidence of osteochondral collapse. Mild degenerative changes of the left hip. Status post right hip arthroplasty with no acute bone, joint or hardware findings. Electronically Signed: Masha Washington MD at 18:16 EDT , Service support ,
[2019-11-07] MEDS: Menthol/Lanolin/Calamine/Znox 113 GM Tube 1 APPLIC TOPICAL (18:08)
[2019-11-07] MEDS: Mirtazapine 15 MG Tablet 7.5 MG PO (22:00)
[2019-11-08 05:16] VITALS: BP 111/57; PULSE 63; RESP 16; TEMP 36.9; O2SAT 94
[2019-11-08] MEDS: oxyCODONE 5 MG Tablet 10 MG PO ×2 (05:17→10:18)
[2019-11-08] MEDS: Glucerna Shake 120 ML LIQUID PO ×4 (05:18→20:59)
[2019-11-08] MEDS: Menthol/Lanolin/Calamine/Znox 113 GM Tube 1 APPLIC TOPICAL ×2 (05:19→20:53)
[2019-11-08] MEDS: Nystatin Powder 15gm Bottle 1 APPLIC TOPICAL ×2 (05:19→20:54)
[2019-11-08] MEDS: Lisinopril 10 MG Tablet PO (05:20)
[2019-11-08] MEDS: Omega-3 Acid Ethyl Esters 1 GM Capsule PO (05:20)
[2019-11-08] MEDS: Acetaminophen 500 MG Tablet 1000 MG PO (05:20)
[2019-11-08] MEDS: Senna/Docusate Sodium 1 Tablet 2 TABLET PO ×2 (05:20→18:11)
[2019-11-08] MEDS: Polyethylene Glycol 3350 17 GM PACKET PO (05:21)
[2019-11-08] MEDS: amLODIPine 5 MG Tablet PO (05:21)
[2019-11-08] MEDS: Vitamin E 400 UNITS Capsule PO (05:21)
[2019-11-08] MEDS: Lidocaine 5% Patch 1 PATCH TOPICAL (05:29)
[2019-11-08] MEDS: Multivitamins,Ther W-Minerals Tablet 1 TABLET PO (08:49)
[2019-11-08] MEDS: Calcium (Elemental) 500 MG Tablet PO (08:49)
[2019-11-08] MEDS: Aspirin 81 MG TAB.CHEW PO ×2 (08:50→16:27)
[2019-11-08] MEDS: Galantamine Hydrobromide 4 MG Tablet PO ×2 (08:50→16:28)
[2019-11-08] MEDS: Cyanocobalamin 500 MCG Tablet 1000 MCG PO (08:50)
[2019-11-08] MEDS: Ferrous Sulfate 325 MG Tablet PO ×2 (11:38→16:23)
[2019-11-08 14:16] VITALS: BP 124/60; PULSE 71; RESP 18; TEMP 36.8; O2SAT 91
[2019-11-08] MEDS: Mirtazapine 15 MG Tablet 7.5 MG PO (20:53)
[2019-11-08] MEDS: HYDROcodone Bitartrate/Apap 5/325 Tablet PO (20:55)
[2019-11-09] MEDS: Omega-3 Acid Ethyl Esters 1 GM Capsule PO (05:16)
[2019-11-09] MEDS: Vitamin E 400 UNITS Capsule PO (05:16)
[2019-11-09] MEDS: Lisinopril 10 MG Tablet PO (05:16)
[2019-11-09] MEDS: amLODIPine 5 MG Tablet PO (05:16)
[2019-11-09] MEDS: Senna/Docusate Sodium 1 Tablet 2 TABLET PO ×2 (05:16→16:54)
[2019-11-09] MEDS: Polyethylene Glycol 3350 17 GM PACKET PO (05:16)
[2019-11-09] MEDS: Glucerna Shake 120 ML LIQUID PO ×4 (05:16→21:42)
[2019-11-09] MEDS: Lidocaine 5% Patch 1 PATCH TOPICAL (05:17)
[2019-11-09] MEDS: Menthol/Lanolin/Calamine/Znox 113 GM Tube 1 APPLIC TOPICAL ×2 (05:17→16:44)
[2019-11-09] MEDS: Nystatin Powder 15gm Bottle 1 APPLIC TOPICAL ×2 (05:17→21:45)
[2019-11-09 05:30] VITALS: BP 120/78; PULSE 70; RESP 17; TEMP 36.6; O2SAT 97
[2019-11-09] MEDS: Multivitamins,Ther W-Minerals Tablet 1 TABLET PO (08:36)
[2019-11-09] MEDS: Calcium (Elemental) 500 MG Tablet PO (08:36)
[2019-11-09] MEDS: Galantamine Hydrobromide 4 MG Tablet PO ×2 (08:36→16:43)
[2019-11-09] MEDS: HYDROcodone Bitartrate/Apap 5/325 Tablet PO ×3 (08:36→21:42)
[2019-11-09] MEDS: Aspirin 81 MG TAB.CHEW PO ×2 (08:36→16:44)
[2019-11-09] MEDS: Ferrous Sulfate 325 MG Tablet PO ×2 (13:05→16:44)
[2019-11-09 16:13] VITALS: BP 114/61; PULSE 73; RESP 18; TEMP 36.7; O2SAT 96
[2019-11-09] MEDS: Mirtazapine 15 MG Tablet 7.5 MG PO (21:42)
[2019-11-10] MEDS: amLODIPine 5 MG Tablet PO (05:19)
[2019-11-10] MEDS: Omega-3 Acid Ethyl Esters 1 GM Capsule PO (05:19)
[2019-11-10] MEDS: Glucerna Shake 120 ML LIQUID PO ×4 (05:19→21:27)
[2019-11-10] MEDS: Vitamin E 400 UNITS Capsule PO (05:19)
[2019-11-10] MEDS: Polyethylene Glycol 3350 17 GM PACKET PO (05:19)
[2019-11-10] MEDS: Lisinopril 10 MG Tablet PO (05:19)
[2019-11-10] MEDS: Nystatin Powder 15gm Bottle 1 APPLIC TOPICAL ×2 (05:20→21:30)
[2019-11-10] MEDS: Menthol/Lanolin/Calamine/Znox 113 GM Tube 1 APPLIC TOPICAL ×2 (05:20→16:35)
[2019-11-10] MEDS: Lidocaine 5% Patch 1 PATCH TOPICAL (05:20)
[2019-11-10] MEDS: Senna/Docusate Sodium 1 Tablet 2 TABLET PO ×2 (05:24→17:52)
[2019-11-10 05:28] VITALS: BP 155/62; PULSE 60; RESP 16; TEMP 36.8; O2SAT 94
[2019-11-10] MEDS: Cyanocobalamin 500 MCG Tablet 1000 MCG PO (08:18)
[2019-11-10] MEDS: Aspirin 81 MG TAB.CHEW PO ×2 (08:18→16:35)
[2019-11-10] MEDS: Calcium (Elemental) 500 MG Tablet PO (08:19)
[2019-11-10] MEDS: Multivitamins,Ther W-Minerals Tablet 1 TABLET PO (08:20)
[2019-11-10] MEDS: Galantamine Hydrobromide 4 MG Tablet PO ×2 (08:20→16:35)
[2019-11-10] MEDS: HYDROcodone Bitartrate/Apap 5/325 Tablet PO ×2 (08:23→15:36)
[2019-11-10] MEDS: Ferrous Sulfate 325 MG Tablet PO ×2 (11:34→16:35)
[2019-11-10 15:24] VITALS: BP 109/61; PULSE 65; RESP 16; TEMP 37.4; O2SAT 97
[2019-11-10] MEDS: Mirtazapine 15 MG Tablet 7.5 MG PO (21:27)
[2019-11-11 04:45] VITALS: BP 131/72; PULSE 65; RESP 17; TEMP 36.3; O2SAT 97
[2019-11-11] MEDS: amLODIPine 5 MG Tablet PO (04:47)
[2019-11-11] MEDS: Senna/Docusate Sodium 1 Tablet 2 TABLET PO ×2 (04:47→18:39)
[2019-11-11] MEDS: Polyethylene Glycol 3350 17 GM PACKET PO (04:47)
[2019-11-11] MEDS: Lisinopril 10 MG Tablet PO (04:47)
[2019-11-11] MEDS: Glucerna Shake 120 ML LIQUID PO ×4 (04:47→21:17)
[2019-11-11] MEDS: Omega-3 Acid Ethyl Esters 1 GM Capsule PO (04:48)
[2019-11-11] MEDS: Menthol/Lanolin/Calamine/Znox 113 GM Tube 1 APPLIC TOPICAL ×2 (04:48→18:40)
[2019-11-11] MEDS: Vitamin E 400 UNITS Capsule PO (04:48)
[2019-11-11] MEDS: Nystatin Powder 15gm Bottle 1 APPLIC TOPICAL ×2 (04:49→21:22)
[2019-11-11] MEDS: Lidocaine 5% Patch 1 PATCH TOPICAL (04:49)
[2019-11-11] MEDS: HYDROcodone Bitartrate/Apap 5/325 Tablet PO (08:30)
[2019-11-11] MEDS: Multivitamins,Ther W-Minerals Tablet 1 TABLET PO (08:31)
[2019-11-11] MEDS: Galantamine Hydrobromide 4 MG Tablet PO ×2 (08:31→16:31)
[2019-11-11] MEDS: Aspirin 81 MG TAB.CHEW PO ×2 (08:31→16:29)
[2019-11-11] MEDS: Calcium (Elemental) 500 MG Tablet PO (08:31)
[2019-11-11 10:33] VITALS: PULSE 70
[2019-11-11] MEDS: Ferrous Sulfate 325 MG Tablet PO ×2 (11:39→18:39)
[2019-11-11 16:00] VITALS: BP 118/87; PULSE 66; RESP 18; TEMP 36.3; O2SAT 97
--- NOTE | 2019-11-11 16:34 | NURSING ---
spoke with Jesika, update given, including foam boots are being used for renee heels.
[2019-11-11] MEDS: Mirtazapine 15 MG Tablet 7.5 MG PO (21:18)
[2019-11-12] MEDS: Glucerna Shake 120 ML LIQUID PO ×2 (05:00→16:15)
[2019-11-12] MEDS: Menthol/Lanolin/Calamine/Znox 113 GM Tube 1 APPLIC TOPICAL ×2 (05:00→16:16)
[2019-11-12] MEDS: Nystatin Powder 15gm Bottle 1 APPLIC TOPICAL ×2 (05:01→20:20)
[2019-11-12] MEDS: Senna/Docusate Sodium 1 Tablet 2 TABLET PO ×2 (05:02→16:21)
[2019-11-12] MEDS: Omega-3 Acid Ethyl Esters 1 GM Capsule PO (05:02)
[2019-11-12] MEDS: amLODIPine 5 MG Tablet PO (05:02)
[2019-11-12] MEDS: Lisinopril 10 MG Tablet PO (05:03)
[2019-11-12] MEDS: Vitamin E 400 UNITS Capsule PO (05:03)
[2019-11-12] MEDS: Polyethylene Glycol 3350 17 GM PACKET PO (05:03)
[2019-11-12 05:07] VITALS: BP 133/68; PULSE 61; RESP 18; TEMP 36.6; O2SAT 92
[2019-11-12] MEDS: Lidocaine 5% Patch 1 PATCH TOPICAL (05:07)
[2019-11-12] MEDS: HYDROcodone Bitartrate/Apap 5/325 Tablet PO ×2 (09:54→16:27)
[2019-11-12] MEDS: Cyanocobalamin 500 MCG Tablet 1000 MCG PO (09:55)
[2019-11-12] MEDS: Aspirin 81 MG TAB.CHEW PO ×2 (09:55→16:16)
[2019-11-12] MEDS: Ferrous Sulfate 325 MG Tablet PO ×2 (09:55→16:16)
[2019-11-12] MEDS: Multivitamins,Ther W-Minerals Tablet 1 TABLET PO (09:56)
[2019-11-12] MEDS: Galantamine Hydrobromide 4 MG Tablet PO ×2 (09:57→16:16)
[2019-11-12] MEDS: Calcium (Elemental) 500 MG Tablet PO (09:58)
--- NOTE | 2019-11-12 10:41 | NURSING ---
returned phone call to Jesika [phone] , updated. Jesika states to call for anything that may be helpful in his care.
[2019-11-12 14:22] VITALS: BP 132/68; PULSE 70; RESP 18; TEMP 36.7
--- NOTE | 2019-11-12 14:44 | CASEMGMT ---
Social Work Contacted pt's to provide therapy update on pt and to discuss pt's discharge plans. explained at length her concerns with pain, cognition and would like to know interventions moving forward. SW explained pt needs with additional assistance with ADLS. transfers, and recommended private duty aides or AL/SNF. does not want AL/SNF and would hired aides to assist for pt to return home. Provided list of nonskilled HHC. Will continue to follow. NATALIE ClementeW
--- NOTE | 2019-11-12 16:28 | NURSING ---
1145 heels inspected- no redness/no bogginess. both remain eleavated off of bed, monique carrillo on.
--- NOTE | 2019-11-12 17:04 | RAD_ITS ---
STUDY: X-RAY - LEFT KNEE REASON FOR EXAM: Male, 79 years old. LEFT LEG PAIN TECHNIQUE: 3 view(s) of the knee. COMPARISON: None. FINDINGS: Normal visualized distal femur. Normal visualized proximal tibia and fibula. Normal proximal tibiofibular articulation. Normal medial femorotibial compartment. Normal lateral femorotibial compartment. Normal patellofemoral articulation. Vascular calcifications. The soft tissue structures are unremarkable. RAD/Knee 3 Views IMPRESSION: No acute disease Electronically Signed: Gabriel Starks MD at 20:28 EDT , Service support ,
--- NOTE | 2019-11-12 17:05 | VDLE_ITS ---
Reason For Study: Swelling RIGHT LEFT CFV is compressible, spontaneous, phasic, GSV is normal. competent and demonstrates normal CFV is compressible, spontaneous, phasic, augmentation. competent, and demonstrates normal Procedure augmentation. Exam performed portable in patient room. FV is compressible, spontaneous, phasic, A preliminary report was called and/or faxed competent and demonstrates normal to TCU. augmentation. POP V is compressible, spontaneous, phasic, competent and demonstrates normal augmentation. T/P Trunk is compressible. Acute deep vein thrombosis is noted in the left GastrocV, SoleusV, PTV and PeroV. Interpretation Summary Acute deep vein thrombosis is noted in the left posterior tibial vein. Acute deep vein thrombosis is noted in the left peroneal vein. Acute deep vein thrombosis is noted in the left gastrocnemius vein. Acute deep vein thrombosis is noted in the left soleus vein. The remainder of the left lower extremity deep venous system is patent and compressible. Valvular competence appears intact within the proximal deep venous system on the left . The left great saphenous vein appears patent and compressible segmentally. Ordering Physician: Garett Dunlap Referring Physician: Gildardo Catherine Performed By: Sarah Mora RVT
--- NOTE | 2019-11-12 19:48 | RAD_ITS ---
STUDY: X-RAY - ABDOMEN/PELVIS REASON FOR EXAM: Male, 79 years old. ABDOMINAL PAIN TECHNIQUE: Single AP view of the abdomen / pelvis. COMPARISON: None. FINDINGS: Normal visualized lung bases. There is an unremarkable bowel gas pattern. Increased stool throughout the colon. Hardware in the hips bilaterally. The visualized liver, spleen and kidneys are grossly normal in size and morphology. Normal soft tissue structures. Normal visualized osseous structures. RAD/Abdomen Single View IMPRESSION: Increased stool Electronically Signed: Gabriel Starks MD at 20:20 EDT , Service support ,
--- NOTE | 2019-11-12 20:00 | RAD_ITS ---
STUDY: X-RAY - LEFT FEMUR REASON FOR STUDY: Male, 79 years old. LEFT LEG PAIN TECHNIQUE: 2 view(s) of the femur. COMPARISON: November 07, 2019 FINDINGS: Status post ORIF Comminuted intertrochanteric fracture with avulsion of the lesser trochanter. Normal visualized soft tissue structure. RAD/Femur Min 2 Views IMPRESSION: ORIF intertrochanteric fracture unchanged in alignment Electronically Signed: Gabriel Starks MD at 20:22 EDT , Service support ,
[2019-11-12] MEDS: Baclofen 10 MG Tablet PO (20:17)
[2019-11-12] MEDS: MethylPREDNISolone DosePak 4 MG BOX PO (20:18)
[2019-11-12] MEDS: Mirtazapine 15 MG Tablet 7.5 MG PO (20:22)
[2019-11-13 00:20] LABS: Bacteria 0 SEEN /hpf (None Seen); Mucous, Urine 0 SEEN /hpf (<or=2+); Red Blood Cells-Urine 0 SEEN /hpf (0-5); Squamous Epithelial Cells - UA 0 SEEN /hpf (0-5)
[2019-11-13 00:25] LABS: Color, Urine Yellow (Yellow); Glucose, Dipstick Normal (Normal); Ketone-Dipstick Negative (Negative); Leukocyte Esterase-Dipstick Negative /ul (Negative); Nitrite-Dipstick Negative (Negative); Occult Blood-Urine 10 /ul (Negative); Protein-Dipstick Negative (Negative); Urine Bilirubin Dipstick Negative (Negative); Urine Clarity Clear (Clear); Urine Urobilinogen Normal (Normal)
[2019-11-13 00:31] LABS: White Blood Cells 0-5 SEEN /hpf (0-5)
[2019-11-13 04:59] VITALS: BP 124/60; PULSE 61; RESP 18; TEMP 36.9; O2SAT 93
[2019-11-13] MEDS: Menthol/Lanolin/Calamine/Znox 113 GM Tube 1 APPLIC TOPICAL ×2 (05:00→18:05)
[2019-11-13] MEDS: Nystatin Powder 15gm Bottle 1 APPLIC TOPICAL ×2 (05:01→20:32)
[2019-11-13] MEDS: Polyethylene Glycol 3350 17 GM PACKET PO (05:01)
[2019-11-13] MEDS: Lisinopril 10 MG Tablet PO (05:01)
[2019-11-13] MEDS: Lidocaine 5% Patch 1 PATCH TOPICAL (05:01)
[2019-11-13] MEDS: Pantoprazole Sodium 40 MG Tablet PO (05:01)
[2019-11-13] MEDS: Senna/Docusate Sodium 1 Tablet 2 TABLET PO ×2 (05:01→18:05)
--- NOTE | 2019-11-13 08:02 | PCM.TCUNOT ---
Subjective: Resident seen in room, lying in bed. He has been complaining of left leg pain. Pain medication was adjusted to [place] 5/325MG 2 tablets every 6 hours as needed, but his pain persisted, interfering with his advancement in therapy. Furthermore, his noted the [place] made [place] confused. He thought he was in an airplane while sitting in his room. He complained of tailbone pain, right hip pain, left thigh pain. Vitals/I&O's: Vital Signs Temp Pulse Resp BP Pulse Ox 98.4 F 61 18 124/60 H 93 11/13/19 04:59 11/13/19 04:59 11/13/19 04:59 11/13/19 04:59 11/13/19 04:59 Oxygen Delivery Method Room Air Weight: 88.564 kg Body Mass Index (BMI) 26.9 Finger Stick Blood Glucose 140 Intake and Output for Last 24 Hours 11/11/19 11/12/19 11/13/19 23:59 23:59 23:59 Intake Total 480 / 480 720 / 720 Balance 480 / 480 720 / 720 Laboratory Results 11/13/19 00:08: Urine Color Yellow, Urine Clarity Clear, Urine pH 6.0, Ur Specific [place] 1.020, Urine Protein Negative, Urine Glucose (UA) Normal, Urine Ketones Negative, Urine Occult Blood 10 H, Urine Nitrite Negative, Urine Bilirubin Negative, Urine Urobilinogen Normal, Ur Leukocyte Esterase Negative, Urine RBC 0 SEEN, Urine WBC 0-5 SEEN, Ur Squamous Epith Cells 0 SEEN, Urine Bacteria 0 SEEN, Urine Mucus 0 SEEN Past Medical History Past Medical History (Chronic Problems): Chronic Problems (Last Reviewed 02/01/18 @ 06:[address] Royer Maxwell MD) Vascular dementia (Chronic) Cervical spinal stenosis (Chronic) Left hemiparesis (Chronic) Tongue cancer (Chronic) Obstructive sleep apnea (Chronic) Hyperlipidemia (Chronic) Overactive bladder (Chronic) Migraine (Chronic) Diabetes mellitus type 2 in nonobese (Chronic) Depression (Chronic) Normochromic normocytic anemia (Chronic) Likely secondary to blood loss from recent hip fracture Urinary incontinence (Chronic) Cerebrovascular disease (Chronic) Generalized weakness (Chronic) Stroke (Chronic) HTN (hypertension) (Chronic) Medical History: Medical History (Last Reviewed 02/01/18 @ 06:[address] Royer Maxwell MD) Cerebrovascular disease (Chronic) I67.9 Allergies chocolate flavor Adverse Reaction (Unknown, Verified 10/17/19 14:36) Other headache Pork/Porcine Containing Products Adverse Reaction (Unknown, Verified 10/17/19 14:36) Other headache atorvastatin [From Lipitor] Adverse Reaction (Verified 10/17/19 14:36) Other stomach issues oxybutynin Adverse Reaction (Verified 10/17/19 14:36) Other Home Medications: Ambulatory Orders Medication Instructions Recorded Multivit-Min/Folic Acid/Biotin 1 each PO DAILY 07/30/17 [Hair, Skin and Nails Caplet] [place]-3/Dha/Epa/Fish Oil [Fish Oil 1 each PO DAILY 07/30/17 [place]-3 EC 1,200 mg] Vitamin E (Dl,Tocopheryl Acet) 400 units PO DAILY 07/30/17 [Vitamin E] Rosuvastatin Calcium [Crestor] 10 mg PO QHS 05/11/19 Galantamine Hbr [Razadyne] 4 mg PO BIDCM 05/14/19 Acetaminophen [Tylenol] 1,000 mg PO Q8 05/31/19 Lisinopril [Zestril] 10 mg PO DAILY 05/31/19 Menthol/Lanolin/Calamine/Znox 1 applic TOPICAL BID 05/31/19 [Calmoseptine Ointment] Amlodipine Besylate [Norvasc] 5 mg PO DAILY 10/17/19 Biotin 3 mg PO DAILY 10/17/19 Calcium Citrate 500 mg PO DAILY 10/17/19 Cholecalciferol (Vitamin D3) 2,000 unit PO DAILY 10/17/19 [Vitamin D3] Cyanocobalamin [Vitamin B12] 1,000 mcg PO QODAY 10/17/19 Sumatriptan Succ/Naproxen Sod 1 ea PO DAILY PRN PRN 10/17/19 [Treximet 85-500 mg Tablet] Aspirin [Aspirin, Baby] 81 mg PO BIDCM 10/21/19 Emollient Combination No.72 1 applic TOPICAL 0600,219910/21/19 [Eucerin Intensive Repair] Ferrous Sulfate 325 mg PO 1200,1700 10/21/19 Glucerna Shake 120 ml PO 4X/DAY 10/21/19 Nystatin Powder [Mycostatin Powder] 1 applic TOPICAL 0600,0 04/27/20 Oxycodone [Oxyir] 5 mg PO Q4H PRN PRN 3 Days #12 tab 10/21/19 Senna/Docusate Sodium [Senokot-S] 2 tab PO BID PRN 30 Days #60 tab 10/21/19 Surgical History: total hip arthroplasty - Right hip, hemiarthroplasty., - - Tongue resection, Left hip ORIF, intramedullary nail, locked. Psychiatric History: No pertinent psych hx Lives: Spouse/ Significant Other Smoking Status: Never smoker Tobacco Use: Non-smoker Alcohol: None Drugs: None - *Family History Maternal History Items: No pertinent history Paternal History Items: Stroke Capacity - Capacity Assessment Tool Can the patient make a choice & communicate that choice?: Yes Can the patient understand benefits, risks and alternatives?: Yes Can the patient make a logical, rational choice?: Yes Is the choice the patient makes consistent w/ their values?: Yes Is there an impending, emergent risk to the patient?: No Does the patient have an Advance Directive?: No Is there a Surrogate Available?: Yes i.e. HCPOA: Yes i.e. close relative (spouse, child, parent, sibling)?: Yes Review of Systems Constitutional: Denies: Chills, Fever, Weight Change HEENT: Denies: Head Aches, Sinus Congestion, Sinus Drainage Cardiovascular: Denies: Chest Pain, Palpitations Respiratory: Denies: Cough, Shortness of breath at rest, Sputum production Gastrointestinal: Denies: Abdominal Pain, Nausea, Vomiting Genitourinary: Denies: Dysuria Musculoskeletal: Denies: Joint Pain, Joint Tenderness Skin: Denies: Rash, Wounds Neurological: Denies: Numbness, Tingling, Focal weakness Psychiatric: Denies: Anxiety, Depression, Homicidal Ideations, Suicidal Ideations Hematologic/ Lymphatic: Denies: Easy Bruising, Easy Bleeding Patient Problems: Active and Suspected Problems (Last Reviewed 02/01/18 @ 06:[address] Royer Maxwell MD) Fall (Acute) - Physical Exam Vitals/I&O's: Vital Signs Temp Pulse Resp BP Pulse Ox 98.4 F 61 18 124/60 H 93 11/13/19 04:59 11/13/19 04:59 11/13/19 04:59 11/13/19 04:59 11/13/19 04:59 Oxygen Delivery Method Room Air Weight: 88.564 kg Body Mass Index (BMI) 26.9 Finger Stick Blood Glucose 140 Intake and Output for Last 24 Hours 11/11/19 11/12/19 11/13/19 23:59 23:59 23:59 Intake Total 480 / 480 720 / 720 Balance 480 / 480 720 / 720 General: Alert, Oriented x3, Cooperative HEENT: Atraumatic, PERRLA, EOMI, Normocephalic Neck: Supple, No JVD, Negative Carotid Bruits Lungs: Clear to auscultation, Normal air movement Cardiovascular: Regular rate, No murmurs Abdomen: Bowel Sounds Present, Soft, Non Tender Extremities: No edema, Capillary Refill Less than 3 Seconds Skin: No rashes, No breakdown Musculoskeletal: No Tenderness to Palpation of Joints or Extremities, - - Tenderness left distal lateral thigh. Neurological: Cranial nerves II-XII grossly intact Psych/Mental Status: Normal Affect, Appropriate Laboratory Results 11/13/19 00:08: Urine Color Yellow, Urine Clarity Clear, Urine pH 6.0, Ur Specific [place] 1.020, Urine Protein Negative, Urine Glucose (UA) Normal, Urine Ketones Negative, Urine Occult Blood 10 H, Urine Nitrite Negative, Urine Bilirubin Negative, Urine Urobilinogen Normal, Ur Leukocyte Esterase Negative, Urine RBC 0 SEEN, Urine WBC 0-5 SEEN, Ur Squamous Epith Cells 0 SEEN, Urine Bacteria 0 SEEN, Urine Mucus 0 SEEN Current Medications Acetaminophen (Tylenol) 1,000 mg PO Q6H PRN PRN PRN Reason: Pain Score 1-10/10 Aspir[facility]in, Baby) [facility] Stop: 11/22/19 23:59 Last Admin: 11/12/19 16:16 Dose: 81 mg Documented by: Aspirin (Aspirin, Baby) 81 mg PO DAILY@0800 [facility] Baclofen (Lioresal) 10 mg PO QHS [facility] Stop: 11/18/19 22:01 Last Admin: 11/12/19 20:17 Dose: 10 mg Documented by: Bisacodyl (Dulcolax) 10 mg PO DAILY PRN PRN PRN Reason: Constipation Calamine/Phenol (Calmoseptine Ointment) 1 applic TOPICAL BID [facility]; Protocol Last Admin: 11/13/19 05:00 Dose: 1 applicatio Documented by: Emollient Ointment (Eucerin Intensive Repair) 1 applic TOPICAL 0600,2200 [facility]; Protocol Last Admin: 11/13/19 05:00 Dose: 1 applicatio Documented by: Galantamine Hydrobromide (Razadyne) [facility] Last Admin: 11/12/19 16:16 Dose: 4 mg Documented by: Lidocaine (Lidoderm Patch) 1 patch TOPICAL DAILY [facility]; Protocol Last Admin: 11/13/19 05:01 Dose: 1 patch Documented by: Lisinopril (Zestril) 10 mg PO DAILY [facility] Last Admin: 11/13/19 05:01 Dose: 10 mg Documented by: Magnesium Citrate (Citrate Of Magnesia) 300 ml PO X1 ONE Stop: 11/13/19 07:58 Methylprednisolone (Medrol Dosepak) 4 mg PO 0800,1200,1700 [facility]; Taper Stop: 11/17/19 08:59 Last Admin: 11/12/19 20:18 Dose: 24 mg Documented by: Mirtazapine (Remeron) 7.5 mg PO QHS [facility] Last Admin: 11/12/19 20:22 Dose: 7.5 mg Documented by: Naproxen (Naprosyn) [facility] Stop: 11/19/19 08:01 Nystatin (Mycostatin Powder) 1 applic TOPICAL 0600,2200 [facility]; Protocol Last Admin: 11/13/19 05:01 Dose: 1 applicatio Documented by: Pantoprazole Sodium (Protonix) 40 mg PO DAILY [facility] Stop: 11/20/19 06:01 Last Admin: 11/13/19 05:01 Dose: 40 mg Documented by: Polyethylene Glycol (Miralax) 17 gm PO DAILY [facility] Last Admin: 11/13/19 05:01 Dose: 17 gm Documented by: Polysaccharide Iron Complex (Ferrex 150) 150 [facility] Rosuvastatin Calcium (Crestor) 10 mg PO QHS [facility] Last Admin: 11/12/19 20:21 Dose: 10 mg Documented by: Senna/Docusate Sodium (Senokot-S, Leslye-Colace) 2 tablet PO BID [facility] Last Admin: 11/13/19 05:01 Dose: 2 tablet Documented by: Assessment/Plan All Active Problems (Last Reviewed 02/01/18 @ 06:[address] Royer Maxwell MD) Closed right hip fracture (Resolved) Debility (Acute) Closed left hip fracture (Acute) Fall (Acute) 79 year old male with below past medical history hospitalized for left hip fracture, underwent left hip ORIF, intramedullary nail, locked 10/18/[address] Davy Myers, admitted to TCU with debility, here for rehabilitation, strengthening, prior to discharge home with . Debility - PT/OT. Pain - Tylenol 1000MG Q6H PRN pain (1-10), Lidoderm patch TD left hip. Bowel - Miralax 17GM daily, Senna/colace 2 tablets BID, Dulcolax 10MG daily PRN, KUB shows stool impaction, clean out Magnesium citrate 300ML PO x 1 bottle, Soap Suds enema. Adult immunization - Administer Prevnar 13, Pneumovax 23, Fluzone as appropriate. DVT prophylaxis - Aspirin 81MG twice daily thru 11/20/2019, then 81MG daily. Hypertension - Lisinopril 10MG daily. Stroke - Aspirin 81MG twice daily thru 11/20/2019 for DVT prophylaxis, then 81MG daily. Skin irritation - Eucerin BID, Calmoseptine BID. Iron deficiency anemia - Ferrex 150MG daily. Vascular dementia - Galantamine 4MG BID. Tinea Corporis - Nystatin powder BID. Hyperlipidemia - Rosuvastatin 10MG QHS. Left thigh pain - X-ray left femur negative, X-ray left knee negative. Left thigh edema - Doppler ultrasound left lower extremity to evaluate for DVT. Nausea - I think it is related to constipation. Iliotibial band syndrome - After informed consent, the area was prepped, draped in sterile manner, vapocoolant anesthesia, left iliotibial band steroid injection with Kenalog 40MG, Lidocaine 1% 1ML, no immediate complications; Medrol Dose pack, Naproxen 500MG BID with food x 6 days, Baclofen 10MG QHS x 6 days, Pantoprazole 40MG daily x 7 days for GI protection.
[2019-11-13] MEDS: Galantamine Hydrobromide 4 MG Tablet PO ×2 (08:26→18:05)
[2019-11-13] MEDS: Iron Polysaccharide Complex 150 MG CAPSULE PO (08:26)
[2019-11-13] MEDS: MethylPREDNISolone DosePak 4 MG BOX PO ×2 (08:26→12:01)
[2019-11-13] MEDS: Naproxen 500 MG Tablet PO (08:26)
[2019-11-13] MEDS: Aspirin 81 MG TAB.CHEW PO (08:27)
--- NOTE | 2019-11-13 10:47 | NURSING ---
Resident says he spoke with his earlier this morning.
[2019-11-13] MEDS: Magnesium Citrate 300 ML PO (12:02)
--- NOTE | 2019-11-13 12:09 | NURSING ---
Notified Dr. Dunlap of call from vascular that pt is positive for DVT's in left lower leg. Received orders to stop aspirin, Start Xarelto 15mg BID for 21 days, then 20mg daily after that. Order repeated back and added.
--- NOTE | 2019-11-13 13:27 | NURSING ---
Resident's updated on resident's status. Appreciative of update.
[2019-11-13 15:54] VITALS: BP 119/63; PULSE 70; RESP 16; TEMP 36.4; O2SAT 93
--- NOTE | 2019-11-13 17:15 | NURSING ---
Resident tolerated soapsuds enema fair with results at 16:30. Mag citrate given earlier this shift with results. Occult blood sample to be obtained with next bowel movement. Fluids ordered.
[2019-11-13 17:42] LABS: Anion Gap 5 (5-15); BUN 33 mg/dL (7-18); BUN/Creat Ratio 34.1 RATIO (10-20); Calcium,Total 9.1 mg/dL (8.5-10.1); Chloride 105 mmol/L (98-107); Creatinine, Serum 0.97 mg/dL (0.70-1.30); EST Glomerular Filtration Rate 80 mL/min (>60); Est Glom Filt Rate - Afr Amer 97 mL/min (>60); Estimated Creatinine Clearance 77.06 ml/min; Glucose 173 mg/dL (74-106); Potassium 4.4 mmol/L (3.5-5.1); Sodium Level 140 mmol/L (136-145)
[2019-11-13 17:43] LABS: Absolute Lymphocyte Count 0.81 X10^3/uL (0.83-4.51); Absolute Neutrophil Count 3.7 X10^3/uL (2.0-7.7); Basophil# 0.01 X10^3/uL; Basophil% 0.2 % (0-1); Hematocrit 35.2 % (40-54); Hemoglobin 11.3 g/dL (13.0-16.5); Lymphocyte # 0.81 X10^3/ul (4.0); Lymphocyte % 16.9 % (19-41); Mean Corp Hgb Conc 32.1 g/dL (32-36); Mean Corpuscular Hgb 30.9 pg (27.0-32.0); Mean Corpuscular Volume 96.2 fL (80-94); Mean Platelet Vol. 11.2 fl (6.2-12.0); Monocyte# 0.28 X10^3/uL; Monocyte% 5.9 % (0-10); NRBC Flagged by Analyzer 0 % (0-5); Neutrophil # 3.67 X10^3/uL (2.7-7.7); Neutrophil % 76.8 % (47-70); Platelet Count 123 K/mm3 (150-450); RBC Distribution Width CV 13.9 % (11.6-14.6); RBC Distribution Width SD 48.7 fl (35.1-43.9); Red Blood Count 3.66 M/mm3 (4.6-6.2); White Blood Count 4.8 K/mm3 (4.4-11.0)
[2019-11-13] MEDS: 0.9% Normal Saline 1,000 ML 75 ML IV (18:03)
[2019-11-13] MEDS: Rivaroxaban 15 MG Tablet PO (18:04)
--- NOTE | 2019-11-13 23:26 | NURSING ---
Pt attempting to get out of bed numerous times. Pt took out IV, took bed cord and call light out of the wall. Pt stating he was driving home. Pt easily reoriented to room and situation. Asked pt if we could move him closer to the nurses station so he could be monitored more closely. Pt in agreement and stated he would tell his tomorrow.
[2019-11-14 04:00] VITALS: BP 115/52; PULSE 62; RESP 15; TEMP 36.7; O2SAT 93
[2019-11-14] MEDS: Lisinopril 10 MG Tablet PO (05:15)
[2019-11-14] MEDS: Menthol/Lanolin/Calamine/Znox 113 GM Tube 1 APPLIC TOPICAL ×2 (05:16→15:28)
[2019-11-14] MEDS: Nystatin Powder 15gm Bottle 1 APPLIC TOPICAL ×2 (05:17→21:38)
[2019-11-14] MEDS: Senna/Docusate Sodium 1 Tablet 2 TABLET PO ×2 (05:18→17:41)
[2019-11-14] MEDS: Polyethylene Glycol 3350 17 GM PACKET PO (05:18)
[2019-11-14 06:07] LABS: Absolute Lymphocyte Count 1.79 X10^3/uL (0.83-4.51); Absolute Neutrophil Count 3.8 X10^3/uL (2.0-7.7); Basophil# 0.02 X10^3/uL; Basophil% 0.3 % (0-1); Eosinophil# 0.02 X10^3/uL; Eosinophils% 0.3 % (0-5); Hematocrit 34.8 % (40-54); Lymphocyte # 1.79 X10^3/ul (4.0); Mean Corp Hgb Conc 31.6 g/dL (32-36); Mean Corpuscular Hgb 30.2 pg (27.0-32.0); Mean Corpuscular Volume 95.6 fL (80-94); Mean Platelet Vol. 10.7 fl (6.2-12.0); Monocyte# 0.37 X10^3/uL; Monocyte% 6.2 % (0-10); NRBC Flagged by Analyzer 0 % (0-5); Neutrophil # 3.76 X10^3/uL (2.7-7.7); Platelet Count 116 K/mm3 (150-450); RBC Distribution Width CV 13.9 % (11.6-14.6); RBC Distribution Width SD 49.3 fl (35.1-43.9); Red Blood Count 3.64 M/mm3 (4.6-6.2)
[2019-11-14 06:36] LABS: Anion Gap 6 (5-15); BUN 32 mg/dL (7-18); BUN/Creat Ratio 35.3 RATIO (10-20); Calcium,Total 8.6 mg/dL (8.5-10.1); Chloride 106 mmol/L (98-107); Creatinine, Serum 0.91 mg/dL (0.70-1.30); EST Glomerular Filtration Rate 86 mL/min (>60); Est Glom Filt Rate - Afr Amer 104 mL/min (>60); Estimated Creatinine Clearance 82.14 ml/min; Glucose 109 mg/dL (74-106); Potassium 3.7 mmol/L (3.5-5.1); Sodium Level 142 mmol/L (136-145)
[2019-11-14] MEDS: Rivaroxaban 15 MG Tablet PO ×2 (08:24→17:41)
[2019-11-14] MEDS: Iron Polysaccharide Complex 150 MG CAPSULE PO (08:24)
[2019-11-14] MEDS: Galantamine Hydrobromide 4 MG Tablet PO ×2 (08:24→15:27)
[2019-11-14 10:00] VITALS: PULSE 62; RESP 18; O2SAT 95
--- NOTE | 2019-11-14 12:16 | NURSING ---
Resident on phone with at this time. Sitting comfortably in recliner. No other complaints or concerns to address at this time.
[2019-11-14 13:01] VITALS: BP 127/62; PULSE 62; RESP 16; TEMP 36.7; O2SAT 95
[2019-11-14] MEDS: Acetaminophen 500 MG Tablet 1000 MG PO ×2 (15:25→21:36)
[2019-11-15] MEDS: Nystatin Powder 15gm Bottle 1 APPLIC TOPICAL ×2 (04:35→22:08)
[2019-11-15] MEDS: Polyethylene Glycol 3350 17 GM PACKET PO (04:35)
[2019-11-15] MEDS: Senna/Docusate Sodium 1 Tablet 2 TABLET PO (04:35)
[2019-11-15 04:37] VITALS: BP 148/74; PULSE 71; RESP 17; TEMP 36.2; O2SAT 94
[2019-11-15] MEDS: Menthol/Lanolin/Calamine/Znox 113 GM Tube 1 APPLIC TOPICAL ×2 (04:37→17:25)
[2019-11-15] MEDS: Iron Polysaccharide Complex 150 MG CAPSULE PO (07:34)
[2019-11-15] MEDS: Galantamine Hydrobromide 4 MG Tablet PO ×2 (07:34→17:24)
[2019-11-15] MEDS: Rivaroxaban 15 MG Tablet PO ×2 (07:34→17:24)
[2019-11-15] MEDS: Acetaminophen 500 MG Tablet 1000 MG PO (07:36)
[2019-11-15 15:10] VITALS: BP 139/61; PULSE 70; RESP 18; TEMP 36.4; O2SAT 96
[2019-11-16 03:33] VITALS: BP 136/69; PULSE 79; RESP 18; TEMP 37.2; O2SAT 93
[2019-11-16] MEDS: Senna/Docusate Sodium 1 Tablet 2 TABLET PO ×2 (03:40→18:14)
[2019-11-16] MEDS: Polyethylene Glycol 3350 17 GM PACKET PO (03:40)
[2019-11-16] MEDS: Nystatin Powder 15gm Bottle 1 APPLIC TOPICAL ×2 (03:45→21:21)
[2019-11-16] MEDS: Menthol/Lanolin/Calamine/Znox 113 GM Tube 1 APPLIC TOPICAL ×2 (03:46→18:15)
[2019-11-16 07:13] LABS: Hematocrit 34.2 % (40-54); Hemoglobin 11.1 g/dL (13.0-16.5)
[2019-11-16] MEDS: Rivaroxaban 15 MG Tablet PO ×2 (08:10→18:15)
[2019-11-16] MEDS: Iron Polysaccharide Complex 150 MG CAPSULE PO (08:11)
[2019-11-16] MEDS: Galantamine Hydrobromide 4 MG Tablet PO ×2 (08:11→18:15)
[2019-11-16] MEDS: Acetaminophen 500 MG Tablet 1000 MG PO (10:56)
--- NOTE | 2019-11-16 10:58 | NURSING ---
Resident complained of 10/10 heel pain at this time. Tylenol 1000mg given and heels floated on pillows.
[2019-11-16 10:59] VITALS: RESP 16
[2019-11-16 14:15] VITALS: BP 117/63; PULSE 71; RESP 16; TEMP 36.2; O2SAT 95
--- NOTE | 2019-11-16 16:47 | NURSING ---
Update provided to family
[2019-11-17 05:03] VITALS: BP 145/76; PULSE 83; RESP 18; TEMP 37.6; O2SAT 93
[2019-11-17] MEDS: Polyethylene Glycol 3350 17 GM PACKET PO (05:05)
[2019-11-17] MEDS: Menthol/Lanolin/Calamine/Znox 113 GM Tube 1 APPLIC TOPICAL ×2 (05:07→16:33)
[2019-11-17] MEDS: Nystatin Powder 15gm Bottle 1 APPLIC TOPICAL ×2 (05:07→20:44)
[2019-11-17] MEDS: Senna/Docusate Sodium 1 Tablet 2 TABLET PO ×2 (05:09→16:35)
--- NOTE | 2019-11-17 05:11 | NURSING ---
Patient states that he has had urinary frequency. Patient states that it manzo with urination. Will update Dr. Dunlap
--- NOTE | 2019-11-17 08:29 | RAD_ITS ---
STUDY: X-RAY - ABDOMEN/PELVIS REASON FOR EXAM: Male, 79 years old. URINARY COMPLAINTS TECHNIQUE: KUB. COMPARISON: 11/12/2019. FINDINGS: Lung bases are clear. There is a non-obstructive bowel gas pattern. There is no organomegaly. Atherosclerotic calcification of the aorta. Calcifications in the right upper quadrant consistent with cholelithiasis. Calcifications in the left upper quadrant may represent granulomatous calcification or chronic pancreatitis. Calcifications to the right of L2 are nonspecific. Renal/ureteral calculi are not excluded. Right hip replacement. Status post ORIF left hip. Soft tissues and bony structures are unremarkable. RAD/Abdomen Single View IMPRESSION: 1. Nonobstructive abdomen. 2. Calcifications as described above. No significant change from the prior study. If there is clinical suspicion of obstructive uropathy, CT of the abdomen and pelvis without contrast is recommended. Electronically Signed: Kiara Tello MD at 22:04 EDT Tel , Service support ,
--- NOTE | 2019-11-17 09:05 | NURSING ---
Off unit to xray.
[2019-11-17 10:00] VITALS: PULSE 85; RESP 18; O2SAT 95
[2019-11-17] MEDS: Ondansetron ODT 4 MG Tablet PO (10:00)
[2019-11-17] MEDS: Fleet Enema 1 ML RECTAL (11:00)
--- NOTE | 2019-11-17 11:10 | NURSING ---
Resident given fleets enema at 1100 per doctor's order. Resident tolerated fair.
[2019-11-17 11:27] VITALS: BP 167/82; PULSE 85; RESP 20; TEMP 37.9; O2SAT 95
[2019-11-17] MEDS: Galantamine Hydrobromide 4 MG Tablet PO ×2 (11:30→16:32)
[2019-11-17] MEDS: Rivaroxaban 15 MG Tablet PO ×2 (11:30→16:32)
[2019-11-17] MEDS: Iron Polysaccharide Complex 150 MG CAPSULE PO (11:31)
--- NOTE | 2019-11-17 12:36 | NURSING ---
Resident straight cathed for urine at 1230. Resident tolerated the procedure fair. Urine has strong odor. Urine sent to lab.
[2019-11-17 12:41] LABS: Mucous, Urine 0 SEEN /hpf (<or=2+)
[2019-11-17 12:50] LABS: Color, Urine Yellow (Yellow); Glucose, Dipstick Normal (Normal); Ketone-Dipstick Negative (Negative); Leukocyte Esterase-Dipstick 500 /ul (Negative); Nitrite-Dipstick Positive (Negative); Occult Blood-Urine 250 /ul (Negative); Protein-Dipstick 100 mg/dl (Negative); Specific Gravity, Urine 1.015 (1.002-1.030); Urine Bilirubin Dipstick Negative (Negative); Urine Clarity Cloudy (Clear); Urine Urobilinogen Normal (Normal)
[2019-11-17] MEDS: Acetaminophen 500 MG Tablet 1000 MG PO ×2 (12:53→20:41)
[2019-11-17 12:56] LABS: Bacteria 2+ /hpf (None Seen); Red Blood Cells-Urine 5-10 SEEN /hpf (0-5); Squamous Epithelial Cells - UA 0-5 SEEN /hpf (0-5); White Blood Cells 25-50 SEEN /hpf (0-5)
--- NOTE | 2019-11-17 13:15 | NURSING ---
Urinalysis results texted to Dr. Dunlap.
[2019-11-17] MEDS: Ciprofloxacin 250 MG Tablet PO (15:22)
--- NOTE | 2019-11-17 16:18 | PHA.CONS_ITS ---
<Marco Quiles - Last Filed: 11/17/19 16:18> Progress Note - Pharmacy Subjective: [] [facility] May Pharmacy Note Objective: Allergies chocolate flavor Adverse Reaction (Unknown, Verified 10/17/19 14:36) Other headache Pork/Porcine Containing Products Adverse Reaction (Unknown, Verified 10/17/19 14:36) Other headache atorvastatin [From Lipitor] Adverse Reaction (Verified 10/17/19 14:36) Other stomach issues oxybutynin Adverse Reaction (Verified 10/17/19 14:36) Other Current Medications Generic Name Dose Route Start Last Admin Trade Name Freq PRN Reason Stop Dose Admin Acetaminophen 1,000 mg 11/12/19 20:15 11/17/19 12:53 Tylenol PO 1,000 mg Q6H PRN PRN Administration Pain Score 1-10/10 Bisacodyl 10 mg 10/21/19 20:31 Dulcolax PO DAILY PRN PRN Constipation Calamine/Phenol 1 applic 10/21/19 18:00 11/17/19 05:07 Calmoseptine Ointment TOPICAL 1 applicatio BID [facility] Administration Protocol Ciprofloxacin HCl 250 mg 11/17/19 14:31 11/17/19 15:22 Cipro PO 11/22/19 14:32 250 mg BID [facility] Administration Emollient Ointment 1 applic 10/21/19 22:00 11/17/19 05:07 Eucerin Intensive Repair TOPICAL 1 applicatio 0600,2200 [facility] Administration Protocol Galantamine Hydrobromide 4 mg 10/21/19 17:00 11/17/19 11:30 Razadyne PO 4 mg BIDCM [facility] Administration Nystatin 1 applic 10/21/19 22:00 11/17/19 05:07 Mycostatin Powder TOPICAL 1 applicatio 0600,2200 [facility] Administration Protocol Polyethylene Glycol 17 gm 10/22/19 06:00 11/17/19 05:05 Miralax PO 17 gm DAILY [facility] Administration Polysaccharide Iron Complex 150 mg 11/13/19 08:00 11/17/19 11:31 Ferrex 150 PO 150 mg DAILYCM [facility] Administration Rivaroxaban 15 mg 11/13/19 17:00 11/17/19 11:30 Xarelto PO 12/03/19 22:00 15 mg BIDCM [facility] Administration Rivaroxaban 20 mg 12/04/19 17:00 Xarelto PO DAILY@1700 [facility] Rosuvastatin Calcium 10 mg 10/21/19 22:00 11/16/19 21:20 Crestor PO 10 mg QHS [facility] Administration Senna/Docusate Sodium 2 tablet 10/22/19 06:00 11/17/19 05:09 Senokot-S, Leslye-Colace PO 2 tablet BID [facility] Administration Problem List (Last Reviewed 02/01/18 @ 06:[address] Royer Maxwell MD) Fall (Acute) Vital Signs Temp Pulse Resp BP Pulse Ox 100.2 F H 85 20 H 167/82 H 95 11/17/19 11:27 11/17/19 11:27 11/17/19 11:27 11/17/19 11:27 11/17/19 11:27 Oxygen Delivery Method Room Air Weight: 88.564 kg Body Mass Index (BMI) 26.9 Finger Stick Blood Glucose 140 Sodium 142 mmol/L (136-145) 11/14/19 05:55 Potassium 3.7 mmol/L (3.5-5.1) 11/14/19 05:55 Chloride 106 mmol/L (98-107) 11/14/19 05:55 Carbon Dioxide 30.0 mmol/L (21.0-32.0) 11/14/19 05:55 Anion Gap 6 (5-15) 11/14/19 05:55 BUN 32 mg/dL (7-18) H 11/14/19 05:55 Creatinine 0.91 mg/dL (0.70-1.30) 11/14/19 05:55 Est GFR (MDRD) Af Amer 104 mL/min (>60) 11/14/19 05:55 Est GFR (MDRD) Non-Af 86 mL/min (>60) 11/14/19 05:55 BUN/Creatinine Ratio 35.3 RATIO (10-20) H 11/14/19 05:55 Glucose 109 mg/dL (74-106) H 11/14/19 05:55 Assessment/Plan: 1) Pain: Acetaminophen 1000mg po q6 hours prn for pain 1-10. Please continue to monitor prn usage, and for signs/symptoms of increased pain. 2) Hyperlipidemia: Rosuvastatin 10mg po qhs. Please continue to monitor yearly LFT and Lipid panel while pt is on a statin. 3) Iron Deficiency Anemia: Ferrex 150mg daily. Pt's H+H, Iron level, and Iron saturation are all low compared to baseline. Please continue to monitor 4 Vascular Dementia: Galantamine 4mg po bid. Please continue to monitor pt for syncopye/bradycardia *5) Hypertension: Pt recently had his Amlodipine and Lisinopril dc'd (11/11 and 11/13). His last blood pressure reading was 167/82. Please continue to monitor. 6) DVT: Xarelto 15mg po bid with food for 21 days, then 20mg daily with dinner. Please continue to monitor for signs/symptoms of bleeding. Pt is a fall risk, please monitor for falls. Psychotropic Medications: Unnecessary Medications: Bowel Regimen: Bisacodyl 10mg po daily prn for constipation, Miralax 17gm po daily, Senna/Docusate 2 tablets po bid. Please continue to monitor prn usage and for signs/symptoms of constipation/diarrhea. Pt has not been refusing scheduled doses. Date of Note:: 11/17/19 - Provider Comments Provider responsibility: Provider responsible to enter orders to implement recommendations <Garett Dunlap Chi - Last Filed: 11/17/19 19:25> Progress Note - Pharmacy Subjective: [] Objective: Allergies chocolate flavor Adverse Reaction (Unknown, Verified 10/17/19 14:36) Other headache Pork/Porcine Containing Products Adverse Reaction (Unknown, Verified 10/17/19 14:36) Other headache atorvastatin [From Lipitor] Adverse Reaction (Verified 10/17/19 14:36) Other stomach issues oxybutynin Adverse Reaction (Verified 10/17/19 14:36) Other Current Medications Generic Name Dose Route Start Last Admin Trade Name Freq PRN Reason Stop Dose Admin Acetaminophen 1,000 mg 11/12/19 20:15 11/17/19 12:53 Tylenol PO 1,000 mg Q6H PRN PRN Administration Pain Score 1-10/10 Bisacodyl 10 mg 10/21/19 20:31 Dulcolax PO DAILY PRN PRN Constipation Calamine/Phenol 1 applic 10/21/19 18:00 11/17/19 16:33 Calmoseptine Ointment TOPICAL 1 applicatio BID [facility] Administration Protocol Ciprofloxacin HCl 250 mg 11/17/19 14:31 11/17/19 15:22 Cipro PO 11/22/19 14:32 250 mg BID [facility] Administration Emollient Ointment 1 applic 10/21/19 22:00 11/17/19 05:07 Eucerin Intensive Repair TOPICAL 1 applicatio 599,2199 [facility] Administration Protocol Galantamine Hydrobromide 4 mg 10/21/19 17:00 11/17/19 16:32 Razadyne PO 4 mg BIDCM [facility] Administration Nystatin 1 applic 10/21/19 22:00 11/17/19 05:07 Mycostatin Powder TOPICAL 1 applicatio 599,2199 [facility] Administration Protocol Polyethylene Glycol 17 gm 10/22/19 06:00 11/17/19 05:05 Miralax PO 17 gm DAILY [facility] Administration Polysaccharide Iron Complex 150 mg 11/13/19 08:00 11/17/19 11:31 Ferrex 150 PO 150 mg DAILYCM [facility] Administration Rivaroxaban 15 mg 11/13/19 17:00 11/17/19 16:32 Xarelto PO 12/03/19 22:00 15 mg BIDCM [facility] Administration Rivaroxaban 20 mg 12/04/19 17:00 Xarelto PO DAILY@1700 [facility] Rosuvastatin Calcium 10 mg 10/21/19 22:00 11/16/19 21:20 Crestor PO 10 mg QHS [facility] Administration Senna/Docusate Sodium 2 tablet 10/22/19 06:00 11/17/19 16:35 Senokot-S, Leslye-Colace PO 2 tablet BID [facility] Administration Problem List (Last Reviewed 02/01/18 @ 06:[address] Royer Maxwell MD) Fall (Acute) Vital Signs Temp Pulse Resp BP Pulse Ox 100.2 F H 85 20 H 167/82 H 95 11/17/19 11:27 11/17/19 11:27 11/17/19 11:27 11/17/19 11:27 11/17/19 11:27 Oxygen Delivery Method Room Air Weight: 88.564 kg Body Mass Index (BMI) 26.9 Finger Stick Blood Glucose 140 Sodium 142 mmol/L (136-145) 11/14/19 05:55 Potassium 3.7 mmol/L (3.5-5.1) 11/14/19 05:55 Chloride 106 mmol/L (98-107) 11/14/19 05:55 Carbon Dioxide 30.0 mmol/L (21.0-32.0) 11/14/19 05:55 Anion Gap 6 (5-15) 11/14/19 05:55 BUN 32 mg/dL (7-18) H 11/14/19 05:55 Creatinine 0.91 mg/dL (0.70-1.30) 11/14/19 05:55 Est GFR (MDRD) Af Amer 104 mL/min (>60) 11/14/19 05:55 Est GFR (MDRD) Non-Af 86 mL/min (>60) 11/14/19 05:55 BUN/Creatinine Ratio 35.3 RATIO (10-20) H 11/14/19 05:55 Glucose 109 mg/dL (74-106) H 11/14/19 05:55 Assessment/Plan: Psychotropic Medications: Unnecessary Medications: Bowel Regimen: - Provider Comments Provider responsibility: Provider responsible to enter orders to implement recommendations Provider Comments to Recommendations by Pharmacy: Agree
[2019-11-18] MEDS: Lisinopril 10 MG Tablet PO (05:23)
[2019-11-18] MEDS: Ciprofloxacin 250 MG Tablet PO ×2 (05:23→16:27)
[2019-11-18] MEDS: Senna/Docusate Sodium 1 Tablet 2 TABLET PO ×2 (05:23→16:21)
[2019-11-18] MEDS: Nystatin Powder 15gm Bottle 1 APPLIC TOPICAL ×2 (05:23→19:48)
[2019-11-18] MEDS: Menthol/Lanolin/Calamine/Znox 113 GM Tube 1 APPLIC TOPICAL ×2 (05:23→16:21)
[2019-11-18] MEDS: Polyethylene Glycol 3350 17 GM PACKET PO (05:23)
[2019-11-18 05:29] VITALS: BP 151/71; PULSE 89; RESP 19; TEMP 36.3; O2SAT 96
[2019-11-18] MEDS: Galantamine Hydrobromide 4 MG Tablet PO ×2 (08:26→16:21)
[2019-11-18] MEDS: Rivaroxaban 15 MG Tablet PO ×2 (08:26→16:21)
[2019-11-18] MEDS: Iron Polysaccharide Complex 150 MG CAPSULE PO (08:26)
[2019-11-18] MEDS: Acetaminophen 500 MG Tablet 1000 MG PO (12:27)
[2019-11-18 15:42] VITALS: BP 132/68; PULSE 68; RESP 16; TEMP 36.6; O2SAT 95
[2019-11-19 04:08] VITALS: BP 154/73; PULSE 63; RESP 18; TEMP 36.8; O2SAT 95
[2019-11-19] MEDS: Ciprofloxacin 250 MG Tablet PO ×2 (04:37→17:09)
[2019-11-19] MEDS: Senna/Docusate Sodium 1 Tablet 2 TABLET PO (04:38)
[2019-11-19] MEDS: Polyethylene Glycol 3350 17 GM PACKET PO (04:38)
[2019-11-19] MEDS: Lisinopril 10 MG Tablet PO (04:38)
[2019-11-19] MEDS: Menthol/Lanolin/Calamine/Znox 113 GM Tube 1 APPLIC TOPICAL ×2 (04:42→17:12)
[2019-11-19] MEDS: Nystatin Powder 15gm Bottle 1 APPLIC TOPICAL ×2 (04:42→20:18)
[2019-11-19] MEDS: Iron Polysaccharide Complex 150 MG CAPSULE PO (08:59)
[2019-11-19] MEDS: Rivaroxaban 15 MG Tablet PO ×2 (09:00→17:09)
[2019-11-19] MEDS: Galantamine Hydrobromide 4 MG Tablet PO ×2 (09:00→17:09)
--- NOTE | 2019-11-19 13:49 | RAD_ITS ---
STUDY: X-RAY - PELVIS AND LEFT HIP REASON FOR EXAM: Male, 79 years old. Post surgical repair, 4 weeks post op TECHNIQUE: 3 views of the pelvis and hip on 4 images. COMPARISON: 3 views of the pelvis and left hip on 4 images November 07, 2019 FINDINGS: There is a non-specific bowel gas pattern. There are atherosclerotic vascular calcifications of the pelvic arteries. Degenerative changes again seen in the visualized lower lumbar spine. Normal bilateral iliac wings, sacroiliac joints and visualized sacrum. Normal bilateral superior and inferior pubic rami. Normal pubic symphysis. Normal bilateral ischial tuberosities. Indwelling metal right bipolar hip prosthesis again noted Changes of prior ORIF of a comminuted left femoral intertrochanteric fracture with metal hardware again noted. Fracture fragments remain in gross anatomic alignment, but the main intertrochanteric fracture line as well as some distraction of the lesser trochanter fragment remains evident. There is borderline osteoarthritic spur formation of the acetabular rim. Mild swelling/stranding seen in the subcutaneous tissues lateral to the hip. RAD/HIP, UNI W/ Pelvis 2-3 Views IMPRESSION: Healing prior ORIF of comminuted left femoral intertrochanteric fracture with metal hardware unchanged since November 07, 2019. Electronically Signed: Tim Ya MD at 14:55 EDT , Service support ,
[2019-11-19 15:35] VITALS: BP 135/65; PULSE 68; RESP 16; TEMP 36.3; O2SAT 98
[2019-11-19] MEDS: Mirtazapine 15 MG Tablet 7.5 MG PO (20:17)
[2019-11-20 04:54] VITALS: BP 136/70; PULSE 62; RESP 17; TEMP 36.8; O2SAT 93
[2019-11-20] MEDS: Polyethylene Glycol 3350 17 GM PACKET PO (04:56)
[2019-11-20] MEDS: Lisinopril 10 MG Tablet PO (04:57)
[2019-11-20] MEDS: Ciprofloxacin 250 MG Tablet PO ×2 (04:57→16:55)
[2019-11-20] MEDS: Menthol/Lanolin/Calamine/Znox 113 GM Tube 1 APPLIC TOPICAL ×2 (04:58→16:55)
[2019-11-20] MEDS: Senna/Docusate Sodium 1 Tablet 2 TABLET PO ×2 (04:59→16:55)
[2019-11-20] MEDS: Nystatin Powder 15gm Bottle 1 APPLIC TOPICAL ×2 (05:00→19:53)
[2019-11-20] MEDS: Rivaroxaban 15 MG Tablet PO ×2 (08:17→16:55)
[2019-11-20] MEDS: Galantamine Hydrobromide 4 MG Tablet PO ×2 (08:18→16:55)
[2019-11-20] MEDS: Iron Polysaccharide Complex 150 MG CAPSULE PO (08:18)
[2019-11-20 13:13] VITALS: BP 104/54; PULSE 70; RESP 18; TEMP 36.6; O2SAT 95
--- NOTE | 2019-11-20 15:18 | NURSING ---
Resident spoke with Dr. Myers at 1500. Updated on weightbearing status of 50%. Dr. Myers would like resident to continue with needed supplements and use a better mattress to relieve pressure off coccyx.
[2019-11-20 15:23] VITALS: PULSE 70; RESP 16; O2SAT 97
--- NOTE | 2019-11-20 16:13 | CHAPLAIN ---
Type of Pastoral Visit ___ Initial Visit _x__ Follow-up Visit ___ On-call Visit ___ General Patient Visit ___ Spiritual Assessment ___ Family Conference ___ Bereavement ___ Rapid Response ___ Code Blue ___ Other (describe below) Pastoral Care Referral From _x__ Patient ___ Family ___ Nurse ___ Physician ___ Junior Estimator ___ Epic Interface Analyst ___ Other (describe below) Sacrament/Intervention _x__ Active listening ___ Anointing ___ Worship ___ Bereavement ___ Communion ___ Tasha exploration ___ _x__ Life review ___ Prayer ___ Reconciliation ___ Sacrament of Sick ___ Supportive presence ___ Wedding ___ Other (describe below) Pastoral Comments
[2019-11-20] MEDS: Mirtazapine 15 MG Tablet 7.5 MG PO (19:51)
[2019-11-21] MEDS: Polyethylene Glycol 3350 17 GM PACKET PO (04:55)
[2019-11-21] MEDS: Lisinopril 10 MG Tablet PO (04:55)
[2019-11-21] MEDS: Ciprofloxacin 250 MG Tablet PO ×2 (04:55→17:12)
[2019-11-21] MEDS: Nystatin Powder 15gm Bottle 1 APPLIC TOPICAL ×2 (04:57→19:54)
[2019-11-21] MEDS: Senna/Docusate Sodium 1 Tablet 2 TABLET PO ×2 (04:58→17:14)
[2019-11-21] MEDS: Menthol/Lanolin/Calamine/Znox 113 GM Tube 1 APPLIC TOPICAL ×2 (05:01→17:15)
[2019-11-21 05:02] VITALS: BP 140/76; PULSE 76; RESP 18; TEMP 36.6; O2SAT 97
[2019-11-21 06:07] LABS: Absolute Lymphocyte Count 1.92 X10^3/uL (0.83-4.51); Absolute Neutrophil Count 2.5 X10^3/uL (2.0-7.7); Basophil# 0.02 X10^3/uL; Basophil% 0.4 % (0-1); Eosinophil# 0.13 X10^3/uL; Eosinophils% 2.6 % (0-5); Hematocrit 35.6 % (40-54); Hemoglobin 10.9 g/dL (13.0-16.5); Lymphocyte # 1.92 X10^3/ul (4.0); Lymphocyte % 38.4 % (19-41); Mean Corp Hgb Conc 30.6 g/dL (32-36); Mean Corpuscular Hgb 29.1 pg (27.0-32.0); Mean Corpuscular Volume 94.9 fL (80-94); Mean Platelet Vol. 10.1 fl (6.2-12.0); Monocyte# 0.38 X10^3/uL; Monocyte% 7.6 % (0-10); NRBC Flagged by Analyzer 0 % (0-5); Neutrophil # 2.53 X10^3/uL (2.7-7.7); Neutrophil % 50.6 % (47-70); Platelet Count 183 K/mm3 (150-450); RBC Distribution Width CV 13.6 % (11.6-14.6); RBC Distribution Width SD 47.3 fl (35.1-43.9); Red Blood Count 3.75 M/mm3 (4.6-6.2)
[2019-11-21 06:17] LABS: Anion Gap 6 (5-15); BUN 23 mg/dL (7-18); BUN/Creat Ratio 27.1 RATIO (10-20); Calcium,Total 8.9 mg/dL (8.5-10.1); Chloride 103 mmol/L (98-107); Creatinine, Serum 0.85 mg/dL (0.70-1.30); EST Glomerular Filtration Rate 93 mL/min (>60); Est Glom Filt Rate - Afr Amer 112 mL/min (>60); Estimated Creatinine Clearance 87.31 ml/min; Glucose 152 mg/dL (74-106); Potassium 4.1 mmol/L (3.5-5.1); Sodium Level 139 mmol/L (136-145)
[2019-11-21] MEDS: Galantamine Hydrobromide 4 MG Tablet PO ×2 (08:51→17:12)
[2019-11-21] MEDS: Iron Polysaccharide Complex 150 MG CAPSULE PO (08:51)
[2019-11-21] MEDS: Rivaroxaban 15 MG Tablet PO ×2 (08:51→17:12)
[2019-11-21] MEDS: Acetaminophen 500 MG Tablet 1000 MG PO (08:53)
[2019-11-21 14:58] VITALS: BP 134/68; PULSE 65; RESP 17; TEMP 36.8; O2SAT 96
[2019-11-21] MEDS: 0.9% Normal Saline 1,000 ML 999 ML IV (19:38)
[2019-11-21] MEDS: Mirtazapine 15 MG Tablet 7.5 MG PO (19:51)
[2019-11-21] MEDS: 0.9% Normal Saline 1,000 ML 75 ML IV (20:42)
[2019-11-22 05:20] VITALS: BP 157/60; PULSE 66; RESP 18; TEMP 36.6; O2SAT 97
[2019-11-22] MEDS: Polyethylene Glycol 3350 17 GM PACKET PO (05:22)
[2019-11-22] MEDS: Ciprofloxacin 250 MG Tablet PO (05:22)
[2019-11-22] MEDS: Senna/Docusate Sodium 1 Tablet 2 TABLET PO ×2 (05:24→16:43)
[2019-11-22] MEDS: Nystatin Powder 15gm Bottle 1 APPLIC TOPICAL ×2 (05:27→20:15)
[2019-11-22] MEDS: Menthol/Lanolin/Calamine/Znox 113 GM Tube 1 APPLIC TOPICAL ×2 (05:28→16:44)
[2019-11-22] MEDS: Galantamine Hydrobromide 4 MG Tablet PO ×2 (08:11→16:43)
[2019-11-22] MEDS: Iron Polysaccharide Complex 150 MG CAPSULE PO (08:11)
[2019-11-22] MEDS: Rivaroxaban 15 MG Tablet PO ×2 (08:11→16:43)
--- NOTE | 2019-11-22 08:43 | PCA ---
PTs called and asked if pt was liking the fruit smoothie's that he is getting for poor meal intake. staff asked pt if he enjoyed the fruit smoothies he stated no. explained to that pt's appetite has been fair this past few days. pt's wants staff to chart the intake of his fruit smoothies each day. 11/22/2019 breakfast- refused fruit smoothie
[2019-11-22 10:24] VITALS: BP 128/82; BP 147/70; PULSE 64; PULSE 66; PULSE 78
--- NOTE | 2019-11-22 10:30 | NURSING ---
orthos done per order, standing BP may be inaccurate due to pt having difficulty standing and kept using rt arm w/cuff to hold himself up. pt denied dizziness, feeling pretty good today. Therapy taking pt now for session.
[2019-11-22 13:54] VITALS: BP 140/71; PULSE 67; RESP 18; TEMP 37.1; O2SAT 96
[2019-11-22] MEDS: Bisacodyl 5 MG Tablet 10 MG PO (16:43)
[2019-11-22] MEDS: Mirtazapine 15 MG Tablet 7.5 MG PO (20:14)
[2019-11-22] MEDS: 0.9% Saline Lock 10 ML Syringe IV (20:23)
[2019-11-23 04:56] VITALS: BP 168/78; PULSE 62; RESP 18; TEMP 36.4; O2SAT 95
[2019-11-23] MEDS: Menthol/Lanolin/Calamine/Znox 113 GM Tube 1 APPLIC TOPICAL ×2 (04:57→18:04)
[2019-11-23] MEDS: Nystatin Powder 15gm Bottle 1 APPLIC TOPICAL ×2 (04:58→22:15)
[2019-11-23] MEDS: Bisacodyl 5 MG Tablet 10 MG PO (05:00)
[2019-11-23] MEDS: Polyethylene Glycol 3350 17 GM PACKET PO (05:00)
[2019-11-23] MEDS: Senna/Docusate Sodium 1 Tablet 2 TABLET PO ×2 (05:02→18:04)
[2019-11-23] MEDS: Iron Polysaccharide Complex 150 MG CAPSULE PO (08:18)
[2019-11-23] MEDS: Rivaroxaban 15 MG Tablet PO ×2 (08:18→18:04)
[2019-11-23] MEDS: Galantamine Hydrobromide 4 MG Tablet PO ×2 (08:18→18:04)
[2019-11-23 10:00] VITALS: PULSE 72; RESP 98; O2SAT 98
[2019-11-23 10:24] VITALS: BP 135/65; BP 141/75; PULSE 71; PULSE 72
[2019-11-23] MEDS: 0.9% Saline Lock 10 ML Syringe IV ×2 (12:01→22:18)
[2019-11-23 14:18] VITALS: TEMP 36.8
--- NOTE | 2019-11-23 14:52 | NURSING ---
Update provided to family
[2019-11-23 22:00] VITALS: TEMP 37.6
[2019-11-23] MEDS: Mirtazapine 15 MG Tablet 7.5 MG PO (22:17)
[2019-11-23] MEDS: Acetaminophen 500 MG Tablet 1000 MG PO (22:18)
[2019-11-24] MEDS: Polyethylene Glycol 3350 17 GM PACKET PO (04:56)
[2019-11-24] MEDS: Menthol/Lanolin/Calamine/Znox 113 GM Tube 1 APPLIC TOPICAL ×2 (04:57→17:23)
[2019-11-24] MEDS: Nystatin Powder 15gm Bottle 1 APPLIC TOPICAL ×2 (04:57→21:38)
[2019-11-24 05:00] VITALS: BP 148/70; PULSE 78; RESP 18; TEMP 36.7; O2SAT 94
[2019-11-24] MEDS: Senna/Docusate Sodium 1 Tablet 2 TABLET PO ×2 (05:01→17:22)
[2019-11-24] MEDS: Rivaroxaban 15 MG Tablet PO ×2 (08:38→17:22)
[2019-11-24] MEDS: Galantamine Hydrobromide 4 MG Tablet PO ×2 (08:38→17:22)
[2019-11-24] MEDS: Iron Polysaccharide Complex 150 MG CAPSULE PO (08:38)
[2019-11-24 10:00] VITALS: BP 118/69; BP 137/80; PULSE 72; PULSE 75; RESP 16; O2SAT 97
[2019-11-24] MEDS: 0.9% Saline Lock 10 ML Syringe IV (10:44)
--- NOTE | 2019-11-24 13:00 | NURSING ---
Update provided to family
[2019-11-24 14:43] VITALS: BP 150/72; PULSE 67; RESP 16; TEMP 37; O2SAT 95
[2019-11-24] MEDS: Mirtazapine 15 MG Tablet 7.5 MG PO (21:37)
[2019-11-24] MEDS: Acetaminophen 500 MG Tablet 1000 MG PO (21:39)
[2019-11-25 05:04] VITALS: BP 138/72; PULSE 61; RESP 16; TEMP 36.4; O2SAT 95
[2019-11-25] MEDS: Polyethylene Glycol 3350 17 GM PACKET PO (05:06)
[2019-11-25] MEDS: Senna/Docusate Sodium 1 Tablet 2 TABLET PO ×2 (05:06→17:05)
[2019-11-25] MEDS: Menthol/Lanolin/Calamine/Znox 113 GM Tube 1 APPLIC TOPICAL ×2 (05:07→17:09)
[2019-11-25] MEDS: Nystatin Powder 15gm Bottle 1 APPLIC TOPICAL ×2 (05:09→20:48)
[2019-11-25] MEDS: Galantamine Hydrobromide 4 MG Tablet PO ×2 (08:20→17:06)
[2019-11-25] MEDS: Rivaroxaban 15 MG Tablet PO ×2 (08:20→17:06)
[2019-11-25] MEDS: Iron Polysaccharide Complex 150 MG CAPSULE PO (08:20)
--- NOTE | 2019-11-25 08:51 | PCA ---
pt refused the fruit smoothie that was offered on breakfast tray
[2019-11-25] MEDS: Acetaminophen 500 MG Tablet 1000 MG PO (09:23)
[2019-11-25 09:32] VITALS: PULSE 73; RESP 18; O2SAT 97
[2019-11-25 13:53] VITALS: BP 135/69; PULSE 71; RESP 18; TEMP 36.4; O2SAT 97
[2019-11-25] MEDS: Mirtazapine 15 MG Tablet 7.5 MG PO (20:50)
[2019-11-26 04:35] VITALS: BP 147/77; PULSE 65; RESP 18; TEMP 36.8; O2SAT 98
[2019-11-26] MEDS: Nystatin Powder 15gm Bottle 1 APPLIC TOPICAL ×2 (04:36→19:54)
[2019-11-26] MEDS: Menthol/Lanolin/Calamine/Znox 113 GM Tube 1 APPLIC TOPICAL ×2 (04:37→17:21)
[2019-11-26] MEDS: Polyethylene Glycol 3350 17 GM PACKET PO (04:38)
[2019-11-26] MEDS: Senna/Docusate Sodium 1 Tablet 2 TABLET PO ×2 (04:41→17:21)
[2019-11-26] MEDS: Galantamine Hydrobromide 4 MG Tablet PO ×2 (08:37→17:21)
[2019-11-26] MEDS: Iron Polysaccharide Complex 150 MG CAPSULE PO (08:37)
[2019-11-26] MEDS: Rivaroxaban 15 MG Tablet PO ×2 (08:37→17:20)
[2019-11-26] MEDS: Acetaminophen 500 MG Tablet 1000 MG PO (09:38)
--- NOTE | 2019-11-26 14:34 | CHAPLAIN ---
Type of Pastoral Visit ___ Initial Visit _x__ Follow-up Visit ___ On-call Visit ___ General Patient Visit ___ Spiritual Assessment ___ Family Conference ___ Bereavement ___ Rapid Response ___ Code Blue ___ Other (describe below) Pastoral Care Referral From _x__ Patient ___ Family ___ Nurse ___ Physician ___ Primary Teacher ___ Bacteriologist Industrial ___ Other (describe below) Sacrament/Intervention ___ Active listening ___ Anointing ___ Hindu ___ Bereavement ___ Communion ___ Tasha exploration ___ ___ Life review ___ Prayer ___ Reconciliation ___ Sacrament of Sick _x__ Supportive presence ___ Wedding ___ Other (describe below) Pastoral Comments patient stirred from napping; pt was not fully alert but responded to questions; offer was made to do Facetime with his ; pt states that he talked to his on phone this morning and that we could wait until another time; pt did not want anything else at this time and said to this channel cementer outsole machine come back later this week
[2019-11-26 14:55] VITALS: BP 137/77; PULSE 67; RESP 16; TEMP 36.8; O2SAT 96
[2019-11-26] MEDS: Mirtazapine 15 MG Tablet 7.5 MG PO (19:53)
[2019-11-27] MEDS: Bisacodyl 5 MG Tablet 10 MG PO (06:01)
[2019-11-27] MEDS: Polyethylene Glycol 3350 17 GM PACKET PO (06:01)
[2019-11-27] MEDS: Senna/Docusate Sodium 1 Tablet 2 TABLET PO ×2 (06:01→17:43)
[2019-11-27] MEDS: Menthol/Lanolin/Calamine/Znox 113 GM Tube 1 APPLIC TOPICAL ×2 (06:05→17:48)
[2019-11-27] MEDS: Nystatin Powder 15gm Bottle 1 APPLIC TOPICAL ×2 (06:05→21:21)
[2019-11-27 06:10] VITALS: BP 157/90; PULSE 68; RESP 16; TEMP 36.3; O2SAT 97
[2019-11-27] MEDS: Galantamine Hydrobromide 4 MG Tablet PO ×2 (08:07→17:43)
[2019-11-27] MEDS: Iron Polysaccharide Complex 150 MG CAPSULE PO (08:07)
[2019-11-27] MEDS: Rivaroxaban 15 MG Tablet PO ×2 (08:08→17:43)
[2019-11-27] MEDS: Acetaminophen 500 MG Tablet 1000 MG PO ×2 (09:05→21:19)
[2019-11-27 13:51] VITALS: BP 143/77; PULSE 69; RESP 16; TEMP 36.6; O2SAT 97
--- NOTE | 2019-11-27 15:23 | NURSING ---
Provided update to family.
--- NOTE | 2019-11-27 16:07 | CHAPLAIN ---
Type of Pastoral Visit ___ Initial Visit _x__ Follow-up Visit ___ On-call Visit ___ General Patient Visit ___ Spiritual Assessment ___ Family Conference ___ Bereavement ___ Rapid Response ___ Code Blue ___ Other (describe below) Pastoral Care Referral From _x__ Patient ___ Family ___ Nurse ___ Physician ___ Car Ferrier ___ Calker ___ Other (describe below) Sacrament/Intervention _x__ Active listening ___ Anointing ___ Jew ___ Bereavement ___ Communion ___ Tasha exploration ___ ___ Life review ___ Prayer ___ Reconciliation ___ Sacrament of Sick ___ Supportive presence ___ Wedding _x__ Other (describe below) Pastoral Comments attempted to facilitate a FaceTime call to spouse of patient but timing and opportunity passed; will try again later this week per patient request
[2019-11-27] MEDS: Mirtazapine 15 MG Tablet 7.5 MG PO (21:21)
[2019-11-28] MEDS: Senna/Docusate Sodium 1 Tablet 2 TABLET PO ×2 (05:33→17:25)
[2019-11-28] MEDS: Menthol/Lanolin/Calamine/Znox 113 GM Tube 1 APPLIC TOPICAL ×3 (05:33→20:50)
[2019-11-28] MEDS: Polyethylene Glycol 3350 17 GM PACKET PO (05:33)
[2019-11-28] MEDS: Nystatin Powder 15gm Bottle 1 APPLIC TOPICAL ×2 (05:34→20:51)
[2019-11-28 05:40] VITALS: BP 161/74; PULSE 67; RESP 18; TEMP 36.5; O2SAT 95
[2019-11-28] MEDS: Iron Polysaccharide Complex 150 MG CAPSULE PO (07:38)
[2019-11-28] MEDS: Rivaroxaban 15 MG Tablet PO ×2 (07:39→17:23)
[2019-11-28] MEDS: Galantamine Hydrobromide 4 MG Tablet PO ×2 (07:39→17:23)
[2019-11-28] MEDS: Acetaminophen 500 MG Tablet 1000 MG PO (09:28)
[2019-11-28 12:58] VITALS: BP 140/75; PULSE 70; RESP 16; TEMP 36.7; O2SAT 94
--- NOTE | 2019-11-28 15:03 | CHAPLAIN ---
Type of Pastoral Visit ___ Initial Visit ___ Follow-up Visit ___ On-call Visit _x__ General Patient Visit ___ Spiritual Assessment ___ Family Conference ___ Bereavement ___ Rapid Response ___ Code Blue ___ Other (describe below) Pastoral Care Referral From _x__ Patient _x__ Family ___ Nurse ___ Physician ___ Intermediate Frame Tender ___ Manager Steel ___ Other (describe below) Sacrament/Intervention _x__ Active listening ___ Anointing ___ Judaism ___ Bereavement ___ Communion ___ Tasha exploration ___ ___ Life review ___ Prayer ___ Reconciliation ___ Sacrament of Sick ___ Supportive presence ___ Wedding _x__ Other (describe below) Pastoral Comments attempted a FaceTime session for patient and spouse however it ended up just being a phone call; spouse expresses great appreciation for hospital and in particular for contact by phone; spouse requests ongoing spiritual support
[2019-11-28] MEDS: Mirtazapine 15 MG Tablet 7.5 MG PO (20:49)
[2019-11-29] MEDS: Nystatin Powder 15gm Bottle 1 APPLIC TOPICAL ×2 (04:49→20:29)
[2019-11-29] MEDS: Senna/Docusate Sodium 1 Tablet 2 TABLET PO ×2 (04:50→18:59)
[2019-11-29] MEDS: Polyethylene Glycol 3350 17 GM PACKET PO (04:50)
[2019-11-29 05:00] VITALS: BP 137/80; PULSE 64; RESP 16; TEMP 36.8; O2SAT 95
[2019-11-29] MEDS: Acetaminophen 500 MG Tablet 1000 MG PO (07:39)
[2019-11-29] MEDS: Galantamine Hydrobromide 4 MG Tablet PO ×2 (07:39→18:57)
[2019-11-29] MEDS: Rivaroxaban 15 MG Tablet PO ×2 (07:39→18:57)
[2019-11-29] MEDS: Iron Polysaccharide Complex 150 MG CAPSULE PO (07:39)
[2019-11-29 14:37] VITALS: BP 148/77; PULSE 68; RESP 16; TEMP 36.9; O2SAT 96
[2019-11-29] MEDS: Menthol/Lanolin/Calamine/Znox 113 GM Tube 1 APPLIC TOPICAL (18:58)
[2019-11-29] MEDS: Mirtazapine 15 MG Tablet 7.5 MG PO (20:27)
[2019-11-30 05:00] VITALS: BP 143/71; PULSE 68; RESP 17; TEMP 36.2; O2SAT 97
[2019-11-30] MEDS: Menthol/Lanolin/Calamine/Znox 113 GM Tube 1 APPLIC TOPICAL ×3 (05:06→19:28)
[2019-11-30] MEDS: Nystatin Powder 15gm Bottle 1 APPLIC TOPICAL ×2 (05:06→19:28)
[2019-11-30] MEDS: Polyethylene Glycol 3350 17 GM PACKET PO (05:09)
[2019-11-30] MEDS: Senna/Docusate Sodium 1 Tablet 2 TABLET PO ×2 (05:10→16:53)
[2019-11-30] MEDS: Iron Polysaccharide Complex 150 MG CAPSULE PO (08:13)
[2019-11-30] MEDS: Rivaroxaban 15 MG Tablet PO ×2 (08:14→16:53)
[2019-11-30] MEDS: Galantamine Hydrobromide 4 MG Tablet PO ×2 (08:14→16:53)
[2019-11-30] MEDS: Acetaminophen 500 MG Tablet 1000 MG PO (08:15)
[2019-11-30 14:37] VITALS: BP 147/74; PULSE 67; RESP 16; TEMP 36.9; O2SAT 97
[2019-11-30] MEDS: Mirtazapine 15 MG Tablet 7.5 MG PO (19:26)
[2019-12-01] MEDS: Polyethylene Glycol 3350 17 GM PACKET PO (05:22)
[2019-12-01] MEDS: Senna/Docusate Sodium 1 Tablet 2 TABLET PO (05:25)
[2019-12-01] MEDS: Bisacodyl 5 MG Tablet 10 MG PO (05:25)
[2019-12-01] MEDS: Menthol/Lanolin/Calamine/Znox 113 GM Tube 1 APPLIC TOPICAL (05:27)
[2019-12-01] MEDS: Nystatin Powder 15gm Bottle 1 APPLIC TOPICAL ×2 (05:28→21:07)
[2019-12-01 05:29] VITALS: BP 140/69; PULSE 78; RESP 17; TEMP 36.7; O2SAT 94
[2019-12-01] MEDS: Galantamine Hydrobromide 4 MG Tablet PO ×2 (08:20→17:42)
[2019-12-01] MEDS: Rivaroxaban 15 MG Tablet PO ×2 (08:20→17:42)
[2019-12-01] MEDS: Iron Polysaccharide Complex 150 MG CAPSULE PO (08:20)
[2019-12-01 15:07] VITALS: BP 139/73; PULSE 72; RESP 20; TEMP 36.9; O2SAT 96
[2019-12-01] MEDS: Mirtazapine 15 MG Tablet 7.5 MG PO (21:05)
[2019-12-02] MEDS: Menthol/Lanolin/Calamine/Znox 113 GM Tube 1 APPLIC TOPICAL ×2 (05:21→18:39)
[2019-12-02] MEDS: Polyethylene Glycol 3350 17 GM PACKET PO (05:21)
[2019-12-02] MEDS: Senna/Docusate Sodium 1 Tablet 2 TABLET PO ×2 (05:21→18:36)
[2019-12-02] MEDS: Nystatin Powder 15gm Bottle 1 APPLIC TOPICAL ×2 (05:24→20:24)
[2019-12-02 05:29] VITALS: BP 145/78; PULSE 70; RESP 18; TEMP 36.6; O2SAT 98
[2019-12-02] MEDS: Galantamine Hydrobromide 4 MG Tablet PO ×2 (08:34→18:36)
[2019-12-02] MEDS: Iron Polysaccharide Complex 150 MG CAPSULE PO (08:34)
[2019-12-02] MEDS: Rivaroxaban 15 MG Tablet PO ×2 (08:34→18:36)
--- NOTE | 2019-12-02 10:43 | NURSING ---
Addendum entered by Kayla Vicente 12/03/19 08:59: JOAN MONTES RETURNED CALL, WOULD LIKE XRAY OF LT HIP AND FAX RESULTS TO DR MYERS Original Note: Spoke with Dr. Myers's nurse about further instructions. The nurse stated that she would send a message to Dr. Myers, but that he was in surgery today, so we will not receive a return phone call until tomorrow.
[2019-12-02 13:52] VITALS: BP 138/75; PULSE 77; RESP 16; TEMP 37; O2SAT 94
--- NOTE | 2019-12-02 14:02 | NURSING ---
Update provided to family.
[2019-12-02] MEDS: Acetaminophen 500 MG Tablet 1000 MG PO (20:20)
[2019-12-02] MEDS: Mirtazapine 15 MG Tablet 7.5 MG PO (20:21)
[2019-12-03 06:04] VITALS: BP 163/81; PULSE 59; RESP 18; TEMP 36.9; O2SAT 92
[2019-12-03] MEDS: Menthol/Lanolin/Calamine/Znox 113 GM Tube 1 APPLIC TOPICAL ×2 (06:07→16:01)
[2019-12-03] MEDS: Nystatin Powder 15gm Bottle 1 APPLIC TOPICAL ×2 (06:08→20:24)
[2019-12-03] MEDS: Polyethylene Glycol 3350 17 GM PACKET PO (06:08)
[2019-12-03] MEDS: Senna/Docusate Sodium 1 Tablet 2 TABLET PO ×2 (06:11→16:01)
[2019-12-03] MEDS: Rivaroxaban 15 MG Tablet PO ×2 (07:56→16:01)
[2019-12-03] MEDS: Galantamine Hydrobromide 4 MG Tablet PO ×2 (07:56→16:01)
[2019-12-03] MEDS: Iron Polysaccharide Complex 150 MG CAPSULE PO (07:56)
--- NOTE | 2019-12-03 08:58 | RAD_ITS ---
STUDY: X-RAY - PELVIS AND LEFT HIP REASON FOR EXAM: Male, 79 years old. LEFT HIP PAIN S/P SURGERY TECHNIQUE: 3 views of the pelvis and hip. COMPARISON: Comparison is made with prior study dated November 19, 2019. FINDINGS: There is a non-specific bowel gas pattern. There are atherosclerotic vascular calcifications of the pelvic arteries. There is narrowing with cortical sclerosis and osteophyte formation of the sacroiliac joint consistent with degenerative osteoarthritic changes. Normal bilateral superior and inferior pubic rami. Normal pubic symphysis. Normal bilateral ischial tuberosities. The patient is status post ORIF of the left intertrochanteric fracture using an intramedullary ivan and screw fixation device. There is good alignment. RAD/HIP, UNI W/ Pelvis 2-3 Views IMPRESSION: Stable examination. Electronically Signed: Aleksandr Ji, at 11:07 EDT , Service support ,
[2019-12-03] MEDS: Acetaminophen 500 MG Tablet 1000 MG PO ×2 (09:47→18:07)
--- NOTE | 2019-12-03 11:16 | NURSING ---
Addendum entered by Kayla Vicente 12/03/19 15:32: pt continues PWB to RT LE until next telehealth appt on 01/01/20 at 1:15p with DR Myers. will need repeat xray of RT HIP/pelvis 2 days before on december 29 if still here on TCU. Original Note: xray faxed to Dr Myers as requested. waiting on orders for advancement in wt bearing status
[2019-12-03 14:10] VITALS: BP 153/79; PULSE 71; RESP 16; TEMP 36.5; O2SAT 92
[2019-12-03] MEDS: Mirtazapine 15 MG Tablet 7.5 MG PO (20:23)
[2019-12-04 05:51] VITALS: BP 158/94; PULSE 71; RESP 16; TEMP 36.8; O2SAT 98
[2019-12-04] MEDS: Polyethylene Glycol 3350 17 GM PACKET PO (05:52)
[2019-12-04] MEDS: Nystatin Powder 15gm Bottle 1 APPLIC TOPICAL ×2 (05:58→20:21)
[2019-12-04] MEDS: Menthol/Lanolin/Calamine/Znox 113 GM Tube 1 APPLIC TOPICAL ×2 (05:58→17:25)
[2019-12-04] MEDS: Senna/Docusate Sodium 1 Tablet 2 TABLET PO ×2 (06:01→17:23)
[2019-12-04] MEDS: Acetaminophen 500 MG Tablet 1000 MG PO ×3 (06:07→17:22)
[2019-12-04] MEDS: Galantamine Hydrobromide 4 MG Tablet PO ×2 (07:46→16:01)
[2019-12-04] MEDS: Iron Polysaccharide Complex 150 MG CAPSULE PO (07:46)
[2019-12-04 11:44] VITALS: BP 124/66; PULSE 69; RESP 18; TEMP 37.1; O2SAT 99
[2019-12-04 11:45] VITALS: RESP 18; O2SAT 99
[2019-12-04] MEDS: Rivaroxaban 20 MG Tablet PO (16:01)
[2019-12-04] MEDS: Mirtazapine 15 MG Tablet 7.5 MG PO (20:19)
[2019-12-05] MEDS: Senna/Docusate Sodium 1 Tablet 2 TABLET PO ×2 (04:58→17:57)
[2019-12-05] MEDS: Acetaminophen 500 MG Tablet 1000 MG PO ×3 (04:58→21:44)
[2019-12-05] MEDS: Menthol/Lanolin/Calamine/Znox 113 GM Tube 1 APPLIC TOPICAL ×2 (05:01→17:57)
[2019-12-05] MEDS: Nystatin Powder 15gm Bottle 1 APPLIC TOPICAL ×2 (05:02→21:48)
[2019-12-05] MEDS: Polyethylene Glycol 3350 17 GM PACKET PO (05:03)
[2019-12-05 05:04] VITALS: BP 135/71; PULSE 78; RESP 18; TEMP 36.2; O2SAT 94
[2019-12-05] MEDS: Iron Polysaccharide Complex 150 MG CAPSULE PO (08:47)
[2019-12-05] MEDS: Galantamine Hydrobromide 4 MG Tablet PO ×2 (08:47→17:56)
[2019-12-05 13:36] VITALS: BP 152/78; PULSE 75; RESP 16; TEMP 36.6; O2SAT 95
[2019-12-05] MEDS: Rivaroxaban 20 MG Tablet PO (17:56)
[2019-12-05] MEDS: Mirtazapine 15 MG Tablet 7.5 MG PO (21:44)
[2019-12-06 03:10] LABS: Bacteria 0 SEEN /hpf (None Seen); Mucous, Urine 0 SEEN /hpf (<or=2+); Squamous Epithelial Cells - UA 0 SEEN /hpf (0-5)
[2019-12-06 03:13] LABS: Color, Urine Yellow (Yellow); Glucose, Dipstick Normal (Normal); Ketone-Dipstick Negative (Negative); Leukocyte Esterase-Dipstick 500 /ul (Negative); Nitrite-Dipstick Negative (Negative); Occult Blood-Urine 25 /ul (Negative); Protein-Dipstick 15 mg/dl (Negative); Urine Bilirubin Dipstick Negative (Negative); Urine Clarity Sl. Cloudy (Clear); Urine Urobilinogen Normal (Normal)
[2019-12-06 03:33] LABS: Red Blood Cells-Urine 0-5 SEEN /hpf (0-5); White Blood Cells >100 SEEN /hpf (0-5)
[2019-12-06 05:47] VITALS: BP 151/89; PULSE 60; RESP 18; TEMP 36.7; O2SAT 96
[2019-12-06] MEDS: Senna/Docusate Sodium 1 Tablet 2 TABLET PO ×2 (05:49→17:50)
[2019-12-06] MEDS: Acetaminophen 500 MG Tablet 1000 MG PO ×3 (05:49→20:59)
[2019-12-06] MEDS: Nystatin Powder 15gm Bottle 1 APPLIC TOPICAL ×2 (05:50→20:59)
[2019-12-06] MEDS: Menthol/Lanolin/Calamine/Znox 113 GM Tube 1 APPLIC TOPICAL ×2 (05:51→17:53)
[2019-12-06] MEDS: Polyethylene Glycol 3350 17 GM PACKET PO (05:51)
[2019-12-06] MEDS: Iron Polysaccharide Complex 150 MG CAPSULE PO (08:43)
[2019-12-06] MEDS: Galantamine Hydrobromide 4 MG Tablet PO ×2 (08:43→17:49)
[2019-12-06 14:19] VITALS: BP 156/77; PULSE 76; RESP 17; TEMP 36.8; O2SAT 96
[2019-12-06] MEDS: Smz/Tmp Ds Tablet 1 TABLET PO (17:49)
[2019-12-06] MEDS: Rivaroxaban 20 MG Tablet PO (17:49)
--- NOTE | 2019-12-06 17:55 | NURSING ---
Dr Fong office responded to our fax on 12/04 for WB status, patient is to WBAT not PWB
[2019-12-06] MEDS: Mirtazapine 15 MG Tablet 7.5 MG PO (20:59)
[2019-12-07] MEDS: Acetaminophen 500 MG Tablet 1000 MG PO ×3 (05:11→17:42)
[2019-12-07] MEDS: Polyethylene Glycol 3350 17 GM PACKET PO (05:11)
[2019-12-07] MEDS: Nystatin Powder 15gm Bottle 1 APPLIC TOPICAL ×2 (05:12→20:29)
[2019-12-07] MEDS: Senna/Docusate Sodium 1 Tablet 2 TABLET PO ×2 (05:12→17:45)
[2019-12-07] MEDS: Smz/Tmp Ds Tablet 1 TABLET PO ×2 (05:12→17:42)
[2019-12-07] MEDS: Menthol/Lanolin/Calamine/Znox 113 GM Tube 1 APPLIC TOPICAL ×2 (05:12→17:45)
[2019-12-07 05:19] VITALS: BP 152/86; PULSE 67; RESP 17; TEMP 36.5; O2SAT 96
[2019-12-07] MEDS: Galantamine Hydrobromide 4 MG Tablet PO ×2 (08:36→17:42)
[2019-12-07] MEDS: Iron Polysaccharide Complex 150 MG CAPSULE PO (08:36)
[2019-12-07 14:05] VITALS: RESP 16
[2019-12-07 14:26] VITALS: BP 150/79; PULSE 72; RESP 17; TEMP 36.6; O2SAT 92
[2019-12-07] MEDS: Rivaroxaban 20 MG Tablet PO (17:41)
[2019-12-07] MEDS: Mirtazapine 15 MG Tablet 7.5 MG PO (20:27)
[2019-12-08 05:30] VITALS: BP 152/82; PULSE 63; RESP 16; TEMP 36.9; O2SAT 96
[2019-12-08] MEDS: Smz/Tmp Ds Tablet 1 TABLET PO ×2 (05:32→17:09)
[2019-12-08] MEDS: Bisacodyl 5 MG Tablet 10 MG PO (05:32)
[2019-12-08] MEDS: Polyethylene Glycol 3350 17 GM PACKET PO (05:32)
[2019-12-08] MEDS: Acetaminophen 500 MG Tablet 1000 MG PO ×3 (05:32→20:47)
[2019-12-08] MEDS: Senna/Docusate Sodium 1 Tablet 2 TABLET PO ×2 (05:35→17:09)
[2019-12-08] MEDS: Menthol/Lanolin/Calamine/Znox 113 GM Tube 1 APPLIC TOPICAL ×2 (05:35→17:09)
[2019-12-08] MEDS: Nystatin Powder 15gm Bottle 1 APPLIC TOPICAL ×2 (05:36→20:53)
[2019-12-08] MEDS: Galantamine Hydrobromide 4 MG Tablet PO ×2 (08:13→17:09)
[2019-12-08] MEDS: Iron Polysaccharide Complex 150 MG CAPSULE PO (08:14)
--- NOTE | 2019-12-08 13:15 | NURSING ---
Update provided to family.
[2019-12-08 16:00] VITALS: BP 145/75; PULSE 66; RESP 16; TEMP 36.6; O2SAT 96
[2019-12-08] MEDS: Rivaroxaban 20 MG Tablet PO (17:09)
[2019-12-08] MEDS: Mirtazapine 15 MG Tablet 7.5 MG PO (20:49)
[2019-12-09 05:05] VITALS: BP 158/80; PULSE 60; RESP 16; TEMP 36.7; O2SAT 95
[2019-12-09] MEDS: Bisacodyl 5 MG Tablet 10 MG PO (05:08)
[2019-12-09] MEDS: Polyethylene Glycol 3350 17 GM PACKET PO (05:08)
[2019-12-09] MEDS: Senna/Docusate Sodium 1 Tablet 2 TABLET PO ×2 (05:08→17:23)
[2019-12-09] MEDS: Acetaminophen 500 MG Tablet 1000 MG PO ×3 (05:08→21:57)
[2019-12-09] MEDS: Smz/Tmp Ds Tablet 1 TABLET PO ×2 (05:09→17:23)
[2019-12-09] MEDS: Menthol/Lanolin/Calamine/Znox 113 GM Tube 1 APPLIC TOPICAL ×2 (05:09→17:25)
[2019-12-09] MEDS: Nystatin Powder 15gm Bottle 1 APPLIC TOPICAL ×2 (05:10→21:55)
[2019-12-09] MEDS: Galantamine Hydrobromide 4 MG Tablet PO ×2 (08:56→17:23)
[2019-12-09] MEDS: Iron Polysaccharide Complex 150 MG CAPSULE PO (08:56)
[2019-12-09 11:11] VITALS: PULSE 71; RESP 16; O2SAT 95
[2019-12-09 14:32] VITALS: BP 152/66; PULSE 78; RESP 16; TEMP 36.1; O2SAT 97
--- NOTE | 2019-12-09 16:57 | PN_ITS ---
Subjective: Resident seen today for regulatory visit. He has no complaints, no pain. He is being treated for urinary tract infection, due to vascular dementia, he was not aware of urinary tract infection. Vitals/I&O's: Vital Signs Temp Pulse Resp BP Pulse Ox 96.9 F L 78 16 152/66 H 97 12/09/19 14:32 12/09/19 14:32 12/09/19 14:32 12/09/19 14:32 12/09/19 14:32 Oxygen Delivery Method Room Air Weight: 89.925 kg Body Mass Index (BMI) 26.9 Finger Stick Blood Glucose 140 Orthostatic Vital Signs Start: 11/22/19 10:24 Freq: Status: Active Protocol: Activity Type Activity Date Activity User E-Sign Co-Sign Detail Recorded Client Recorded Date Recorded By Document 11/24/19 10:00 PS [id number] 11/24/19 12:03 PS 11/24/19 10:00 Orthostatic Vitals Sitting -Blood Pressure (90/60-120/80) 137/80 H -Extremity Use Left Arm -Pulse Rate (60-100) 72 Lying -Blood Pressure (90/60-120/80) 118/69 -Extremity Use Left Arm -Pulse Rate (60-100) 75 Intake and Output for Last 24 Hours 12/07/19 12/08/19 12/09/19 23:59 23:59 23:59 Intake Total 1080 / 1080 1200 / 1200 840 / 840 Balance 1080 / 1080 1200 / 1200 840 / 840 Microbiology Past 72 Hours 12/06/19 02:15 Urine, Clean Catch Urine Culture - Final Providencia rettgeri Past Medical History Past Medical History (Chronic Problems): Chronic Problems (Last Reviewed 02/01/18 @ 06:[address] Royer Maxwell MD) Vascular dementia (Chronic) Cervical spinal stenosis (Chronic) Left hemiparesis (Chronic) Tongue cancer (Chronic) Obstructive sleep apnea (Chronic) Hyperlipidemia (Chronic) Overactive bladder (Chronic) Migraine (Chronic) Diabetes mellitus type 2 in nonobese (Chronic) Depression (Chronic) Normochromic normocytic anemia (Chronic) Likely secondary to blood loss from recent hip fracture Urinary incontinence (Chronic) Cerebrovascular disease (Chronic) Generalized weakness (Chronic) Stroke (Chronic) HTN (hypertension) (Chronic) Medical History: Medical History (Last Reviewed 02/01/18 @ 06:[address] Royer Maxwlel MD) Cerebrovascular disease (Chronic) I67.9 Allergies chocolate flavor Adverse Reaction (Unknown, Verified 10/17/19 14:36) Other headache Pork/Porcine Containing Products Adverse Reaction (Unknown, Verified 10/17/19 14:36) Other headache atorvastatin [From Lipitor] Adverse Reaction (Verified 10/17/19 14:36) Other stomach issues oxybutynin Adverse Reaction (Verified 10/17/19 14:36) Other Home Medications: Ambulatory Orders Medication Instructions Recorded Multivit-Min/Folic Acid/Biotin 1 each PO DAILY 07/30/17 [Hair, Skin and Nails Caplet] Oketo-3/Dha/Epa/Fish Oil [Fish Oil 1 each PO DAILY 07/30/17 Oketo-3 EC 1,200 mg] Vitamin E (Dl,Tocopheryl Acet) 400 units PO DAILY 07/30/17 [Vitamin E] Rosuvastatin Calcium [Crestor] 10 mg PO QHS 05/11/19 Galantamine Hbr [Razadyne] 4 mg PO BIDCM 05/14/19 Acetaminophen [Tylenol] 1,000 mg PO Q8 05/31/19 Lisinopril [Zestril] 10 mg PO DAILY 05/31/19 Menthol/Lanolin/Calamine/Znox 1 applic TOPICAL BID 05/31/19 [Calmoseptine Ointment] Amlodipine Besylate [Norvasc] 5 mg PO DAILY 10/17/19 Biotin 3 mg PO DAILY 10/17/19 Calcium Citrate 500 mg PO DAILY 10/17/19 Cholecalciferol (Vitamin D3) 2,000 unit PO DAILY 10/17/19 [Vitamin D3] Cyanocobalamin [Vitamin B12] 1,000 mcg PO QODAY 10/17/19 Sumatriptan Succ/Naproxen Sod 1 ea PO DAILY PRN PRN 10/17/19 [Treximet 85-500 mg Tablet] Aspirin [Aspirin, Baby] 81 mg PO BIDCM 10/21/19 Emollient Combination No.72 1 applic TOPICAL 0600,2200 10/21/19 [Eucerin Intensive Repair] Ferrous Sulfate 325 mg PO 1200,1700 10/21/19 Glucerna Shake 120 ml PO 4X/DAY 10/21/19 Nystatin Powder [Mycostatin Powder] 1 applic TOPICAL 0600,2200 10/21/19 Oxycodone [Oxyir] 5 mg PO Q4H PRN PRN 3 Days #12 tab 10/21/19 Senna/Docusate Sodium [Senokot-S] 2 tab PO BID PRN 30 Days #60 tab 10/21/19 Surgical History: total hip arthroplasty - Right hip, hemiarthroplasty., - - Tongue resection, Left hip ORIF, intramedullary nail, locked. Psychiatric History: No pertinent psych hx Lives: Spouse/ Significant Other Smoking Status: Never smoker Tobacco Use: Non-smoker Alcohol: None Drugs: None - *Family History Maternal History Items: No pertinent history Paternal History Items: Stroke Capacity - Capacity Assessment Tool Can the patient make a choice & communicate that choice?: Yes Can the patient understand benefits, risks and alternatives?: Yes Can the patient make a logical, rational choice?: Yes Is the choice the patient makes consistent w/ their values?: Yes Is there an impending, emergent risk to the patient?: No Does the patient have an Advance Directive?: No Is there a Surrogate Available?: Yes i.e. HCPOA: Yes i.e. close relative (spouse, child, parent, sibling)?: Yes Review of Systems Constitutional: Denies: Chills, Fever, Weight Change HEENT: Denies: Head Aches, Sinus Congestion, Sinus Drainage Cardiovascular: Denies: Chest Pain, Palpitations Respiratory: Denies: Cough, Shortness of breath at rest, Sputum production Gastrointestinal: Denies: Abdominal Pain, Nausea, Vomiting Genitourinary: Denies: Dysuria Musculoskeletal: Denies: Joint Pain, Joint Tenderness Skin: Denies: Rash, Wounds Neurological: Denies: Numbness, Tingling, Focal weakness Psychiatric: Denies: Anxiety, Depression, Homicidal Ideations, Suicidal Ideations Hematologic/ Lymphatic: Denies: Easy Bruising, Easy Bleeding Patient Problems: Active and Suspected Problems (Last Reviewed 02/01/18 @ 06:[address] Royer Maxwell MD) Fall (Acute) - Physical Exam Vitals/I&O's: Vital Signs Temp Pulse Resp BP Pulse Ox 96.9 F L 78 16 152/66 H 97 12/09/19 14:32 12/09/19 14:32 12/09/19 14:32 12/09/19 14:32 12/09/19 14:32 Oxygen Delivery Method Room Air Weight: 89.925 kg Body Mass Index (BMI) 26.9 Finger Stick Blood Glucose 140 Orthostatic Vital Signs Start: 11/22/19 10:24 Freq: Status: Active Protocol: Activity Type Activity Date Activity User E-Sign Co-Sign Detail Recorded Client Recorded Date Recorded By Document 11/24/19 10:00 PS [id number] 11/24/19 12:03 PS 11/24/19 10:00 Orthostatic Vitals Sitting -Blood Pressure (90/60-120/80) 137/80 H -Extremity Use Left Arm -Pulse Rate (60-100) 72 Lying -Blood Pressure (90/60-120/80) 118/69 -Extremity Use Left Arm -Pulse Rate (60-100) 75 Intake and Output for Last 24 Hours 12/07/19 12/08/19 12/09/19 23:59 23:59 23:59 Intake Total 1080 / 1080 1200 / 1200 840 / 840 Balance 1080 / 1080 1200 / 1200 840 / 840 General: Alert, Oriented x3, Cooperative HEENT: Atraumatic, PERRLA, EOMI, Normocephalic Neck: Supple, No JVD, Negative Carotid Bruits Lungs: Clear to auscultation, Normal air movement Cardiovascular: Regular rate, No murmurs Abdomen: Bowel Sounds Present, Soft, Non Tender Extremities: No edema, Capillary Refill Less than 3 Seconds Skin: No rashes, No breakdown Musculoskeletal: No Tenderness to Palpation of Joints or Extremities Neurological: Cranial nerves II-XII grossly intact Psych/Mental Status: Normal Affect, Appropriate Microbiology Past 72 Hours 12/06/19 02:15 Urine, Clean Catch Urine Culture - Final Providencia rettgeri Current Medications Acetaminophen (Tylenol) 1,000 mg PO TID [facility] Last Admin: 12/09/19 13:34 Dose: 1,000 mg Documented by: Bisacodyl (Dulcolax) 10 mg PO DAILY PRN PRN PRN Reason: Constipation Last Admin: 12/09/19 05:08 Dose: 10 mg Documented by: Calamine/Phenol (Calmoseptine Ointment) 1 applic TOPICAL BID [facility]; Protocol Last Admin: 12/09/19 05:09 Dose: 1 applicatio Documented by: Emollient Ointment (Eucerin Intensive Repair) 1 applic TOPICAL 0600,2200 [facility]; Protocol Last Admin: 12/09/19 05:09 Dose: 1 applicatio Documented by: Galantamine Hydrobromide (Razadyne) [facility] Last Admin: 12/09/19 08:56 Dose: 4 mg Documented by: Mirtazapine (Remeron) 7.5 mg PO QHS [facility] Last Admin: 12/08/19 20:49 Dose: 7.5 mg Documented by: Nutritional Formula (Lactose Free) (Ensure Enlive) 120 ml PO 4X/DAY [facility] Last Admin: 12/09/19 11:57 Dose: 120 ml Documented by: Nystatin (Mycostatin Powder) 1 applic TOPICAL 0600,2200 [facility]; Protocol Last Admin: 12/09/19 05:10 Dose: 1 applicatio Documented by: Polyethylene Glycol (Miralax) 17 gm PO DAILY [facility] Last Admin: 12/09/19 05:08 Dose: 17 gm Documented by: Polysaccharide Iron Complex (Ferrex 150) 150 [facility]ILYUN[facility] Last Admin: 12/09/19 08:56 Dose: 150 mg Documented by: Rivaroxaban (Xarelto) 20 mg PO DAILY@1700 [facility] Last Admin: 12/08/19 17:09 Dose: 20 mg Documented by: Rosuvastatin Calcium (Crestor) 10 mg PO QHS [facility] Last Admin: 12/08/19 20:50 Dose: 10 mg Documented by: Senna/Docusate Sodium (Senokot-S, Leslye-Colace) 2 tablet PO BID [facility] Last Admin: 12/09/19 05:08 Dose: 2 tablet Documented by: Sodium Chloride () 10 - 40 ml IV UD PRN PRN Reason: SALINE FLUSH Last Admin: 11/24/19 10:44 Dose: 10 ml Documented by: Trimethoprim/Sulfamethoxazole (Bactrim Ds) 1 tablet PO BID [facility] Stop: 12/16/19 18:01 Last Admin: 12/09/19 05:09 Dose: 1 tablet Documented by: Assessment/Plan All Active Problems (Last Reviewed 02/01/18 @ 06:[address] Royer Maxwell MD) Closed right hip fracture (Resolved) Debility (Acute) Closed left hip fracture (Acute) Fall (Acute) 79 year old male with below past medical history hospitalized for left hip fracture, underwent left hip ORIF, intramedullary nail, locked 10/18/[address] Davy Myers, admitted to TCU with debility, here for rehabilitation, strengthening, prior to discharge home with . * Debility - PT/OT. * Pain - Tylenol 1000MG Q6H PRN pain (1-10). * Bowel - Miralax 17GM daily, Senna/colace 2 tablets BID, Dulcolax 10MG daily PRN. * Adult immunization - Administer Prevnar 13, Pneumovax 23, Fluzone as appropriate. * DVT prophylaxis - Not necessary, on Xarelto. * Stroke - Xarelto 20MG daily. * Skin irritation - Eucerin BID, Calmoseptine BID. * Iron deficiency anemia - Ferrex 150MG daily. * Vascular dementia - Galantamine 4MG BID. * Tinea Corporis - Nystatin powder BID. * Hyperlipidemia - Rosuvastatin 10MG QHS. * DVT left lower extremity - Xarelto 20MG daily. * Appetite loss - Mirtazapine 7.5MG QHS. * P. Rettgeri urinary tract infection - Bactrim DS 1 tablet BID thru 12/16/2019.
[2019-12-09] MEDS: Rivaroxaban 20 MG Tablet PO (17:23)
[2019-12-09] MEDS: Mirtazapine 15 MG Tablet 7.5 MG PO (21:58)
[2019-12-10 04:00] VITALS: BP 155/84; PULSE 64; RESP 17; TEMP 36.7; O2SAT 95
[2019-12-10] MEDS: Acetaminophen 500 MG Tablet 1000 MG PO ×3 (05:02→21:12)
[2019-12-10] MEDS: Senna/Docusate Sodium 1 Tablet 2 TABLET PO ×2 (05:02→16:30)
[2019-12-10] MEDS: Polyethylene Glycol 3350 17 GM PACKET PO (05:02)
[2019-12-10] MEDS: Nystatin Powder 15gm Bottle 1 APPLIC TOPICAL ×2 (05:03→21:14)
[2019-12-10] MEDS: Menthol/Lanolin/Calamine/Znox 113 GM Tube 1 APPLIC TOPICAL ×2 (05:05→16:22)
[2019-12-10] MEDS: Smz/Tmp Ds Tablet 1 TABLET PO ×2 (05:05→16:30)
[2019-12-10] MEDS: Galantamine Hydrobromide 4 MG Tablet PO ×2 (08:29→16:21)
[2019-12-10] MEDS: Iron Polysaccharide Complex 150 MG CAPSULE PO (08:29)
--- NOTE | 2019-12-10 12:05 | CASEMGMT ---
Social Work Spoke with about DC plans as IDT is issuing DC date 12/15. Explained pt remains a two person assist, total assist for ADLs, and recommending SNF. expressed two physicians told her not to put pt in a SNF and that is what she will do. understands pt's level of assist and will hire aides to come assist. Explained at length nonskilled and skilled HHC. [facility]. Explained to coordinate nonskilled services and SW will refer to skilled HHC. Referral made to [facility] PT/OT/SN. NO DME needs. Plan: DC home 12/15 with and [facility] PT/OT/SN, nonskilled HHC. No DME needs. NATALIE ClementeW
[2019-12-10 14:43] VITALS: BP 138/70; PULSE 78; RESP 16; TEMP 36.9; O2SAT 97
[2019-12-10] MEDS: Rivaroxaban 20 MG Tablet PO (16:21)
[2019-12-10] MEDS: Mirtazapine 15 MG Tablet 7.5 MG PO (21:12)
[2019-12-11] MEDS: Polyethylene Glycol 3350 17 GM PACKET PO (04:57)
[2019-12-11] MEDS: Senna/Docusate Sodium 1 Tablet 2 TABLET PO ×2 (04:57→17:09)
[2019-12-11] MEDS: Smz/Tmp Ds Tablet 1 TABLET PO ×2 (04:57→17:09)
[2019-12-11] MEDS: Acetaminophen 500 MG Tablet 1000 MG PO ×3 (04:58→22:19)
[2019-12-11] MEDS: Nystatin Powder 15gm Bottle 1 APPLIC TOPICAL ×2 (05:02→22:23)
[2019-12-11] MEDS: Menthol/Lanolin/Calamine/Znox 113 GM Tube 1 APPLIC TOPICAL ×2 (05:03→17:09)
[2019-12-11 05:04] VITALS: BP 153/70; PULSE 61; RESP 17; TEMP 36.6; O2SAT 98
[2019-12-11 05:56] LABS: Absolute Lymphocyte Count 2.08 X10^3/uL (0.83-4.51); Absolute Neutrophil Count 2.5 X10^3/uL (2.0-7.7); Basophil# 0.02 X10^3/uL; Basophil% 0.4 % (0-1); Eosinophil# 0.14 X10^3/uL; Eosinophils% 2.7 % (0-5); Hemoglobin 11.6 g/dL (13.0-16.5); Lymphocyte # 2.08 X10^3/ul (4.0); Lymphocyte % 40.4 % (19-41); Mean Corp Hgb Conc 31.4 g/dL (32-36); Mean Corpuscular Hgb 30.1 pg (27.0-32.0); Mean Corpuscular Volume 96.1 fL (80-94); Mean Platelet Vol. 9.3 fl (6.2-12.0); Monocyte% 7.8 % (0-10); NRBC Flagged by Analyzer 0 % (0-5); Neutrophil # 2.48 X10^3/uL (2.7-7.7); Neutrophil % 48.1 % (47-70); Platelet Count 163 K/mm3 (150-450); RBC Distribution Width CV 15.4 % (11.6-14.6); RBC Distribution Width SD 54.7 fl (35.1-43.9); Red Blood Count 3.85 M/mm3 (4.6-6.2); White Blood Count 5.2 K/mm3 (4.4-11.0)
[2019-12-11 06:24] LABS: Anion Gap 5 (5-15); BUN 19 mg/dL (7-18); BUN/Creat Ratio 22.5 RATIO (10-20); Chloride 105 mmol/L (98-107); Creatinine, Serum 0.84 mg/dL (0.70-1.30); EST Glomerular Filtration Rate 93 mL/min (>60); Est Glom Filt Rate - Afr Amer 113 mL/min (>60); Estimated Creatinine Clearance 88.98 ml/min; Glucose 119 mg/dL (74-106); Potassium 4.3 mmol/L (3.5-5.1); Sodium Level 139 mmol/L (136-145)
--- NOTE | 2019-12-11 07:12 | PCA ---
Alea and i went to get pt out of bed this morning following transfer status of x2 stand pivot transfer pt was not following commands of putting his feet to the side of the bed and assisting staff with getting to the side of the bed for transfer, staff max assisted pt to the side of the bed where pt was not holding his own weight along the edge of the bed. one aide was in front holding gait belt in place and other staff member was behind pt steading his weight forward, attempted to stand patient at bedside pt was buckling his knees and pulling backwards pt was very extensive for staff so we used the saralift to transfer pt to recliner for breakfast
[2019-12-11] MEDS: Galantamine Hydrobromide 4 MG Tablet PO ×2 (07:56→16:02)
[2019-12-11] MEDS: Iron Polysaccharide Complex 150 MG CAPSULE PO (07:56)
--- NOTE | 2019-12-11 08:25 | DCINST_ITS ---
- Discharge Diagnoses Current Active Problems: Current Active and Chronic Problems (Last Reviewed 02/01/18 @ 06:[address] Royer Maxwell MD) Fall (Acute) You will use the following diet at home:: No restrictions, Regular Your food should be the consistency of: Regular Your liquids should be the consistency of: Regular/Thin Discharge Activity: Return to Normal Activity, May Shower, Use Walker Weight Bearing Status: Weight bearing as tolerated Call your doctor if you observe: Fever of 101 or Higher, Inability to urinate, Inability to have a bowel movement, Shortness of breath, Chest pain, Uncontrolled pain Allergies/Adverse Reactions: Allergies chocolate flavor Adverse Reaction (Unknown, Verified 10/17/19 14:36) Other headache Pork/Porcine Containing Products Adverse Reaction (Unknown, Verified 10/17/19 14:36) Other headache atorvastatin [From Lipitor] Adverse Reaction (Verified 10/17/19 14:36) Other stomach issues oxybutynin Adverse Reaction (Verified 10/17/19 14:36) Other Medications to take at Discharge Rosuvastatin Calcium [Crestor] 10 mg PO QHS 05/11/19 Galantamine Hbr [Razadyne] 4 mg PO BIDCM 05/14/19 Acetaminophen [Tylenol] 1,000 mg PO Q8 05/31/19 Menthol/Lanolin/Calamine/Znox [Calmoseptine Ointment] 1 applic TOPICAL BID 05/31/19 Emollient Combination No.72 [Eucerin Intensive Repair] 1 applic TOPICAL 0600,2200 10/21/19 Nystatin Powder [Mycostatin Powder] 1 applic TOPICAL 0600,0 10/21/19 Acetaminophen [Tylenol] 1,000 mg PO TID tab 12/11/19 Iron Polysaccharide Complex [Ferrex 150] 150 mg PO DAILYCM #30 cap 12/11/19 Mirtazapine [Remeron] 7.5 mg PO QHS #30 tab 12/11/19 Rivaroxaban [Xarelto] 20 mg PO DAILY@1700 #30 tab 12/11/19 The following prescriptions were given: Iron Polysaccharide Complex [Ferrex 150] 150 mg PO DAILYCM #30 cap Transmission Status: Pending to [facility] Mirtazapine [Remeron] 7.5 mg PO QHS #30 tab Transmission Status: Pending to [facility] Rivaroxaban [Xarelto] 20 mg PO DAILY@1700 #30 tab Transmission Status: P[facility] to [facility] Primary Care Physician: Gildardo Catherine MD [Primary Care Provider] - Please follow up with your Primary Care Physician in: 1 week. Test Results: Test results from this visit will be discussed in further detail at your follow- up appointment, if applicable. Please Follow Up With: Davy Myers MD When: telehealth appt Proposed Discharge Date: 12/16/19
--- NOTE | 2019-12-11 08:26 | PCM.DC.SUM ---
Discharge Date and Diagnosis - Problem List Patient Problems: Active and Suspected Problems (Last Reviewed 02/01/18 @ 06:[address] Royer Maxwell MD) Fall (Acute) Date of Admission: 10/21/19 Date of Discharge: 12/16/19 - Primary Discharge Diagnosis Acute Problems: Active Problems (Last Reviewed 02/01/18 @ 06:[address] Royer Maxwell MD) Fall (Acute) - Secondary Discharge Diagnosis Chronic Problems: Chronic Problems (Last Reviewed 02/01/18 @ 06:[address] Royer Maxwell MD) Vascular dementia (Chronic) Cervical spinal stenosis (Chronic) Left hemiparesis (Chronic) Tongue cancer (Chronic) Obstructive sleep apnea (Chronic) Hyperlipidemia (Chronic) Overactive bladder (Chronic) Migraine (Chronic) Diabetes mellitus type 2 in nonobese (Chronic) Depression (Chronic) Normochromic normocytic anemia (Chronic) Likely secondary to blood loss from recent hip fracture Urinary incontinence (Chronic) Cerebrovascular disease (Chronic) Generalized weakness (Chronic) Stroke (Chronic) HTN (hypertension) (Chronic) Hospital Course and Treatment Imaging Results: 01/16/20 06:00 Xray hip [Hip uni 4+ views with Pelvis] [RAD] Routine Operations: None Procedures: None Summary of Care Provided: The patient is a 79 year old Male with below past medical history hospitalized for left hip fracture, underwent left hip ORIF, intramedullary nail, locked 10/18/[address] Davy Myers, admitted to TCU with debility, here for rehabilitation, strengthening, prior to discharge home with . On TCU, resident diagnosed with DVT left lower extremity, treated with Xarelto, stop date 02/13/2020. Resume Aspirin 81MG 02/14/2020 for stroke. Resident treated twice for Providencia Rettgeri urinary tract infection. Mirtazapine 7.5MG at bedtime added for appetite stimulation, maybe able to stop later on. Consider not restarting home vitamins, minerals, medications which were stopped on TCU, resident did well with as few pills as possible. Discharge home with , [facility] PT/OT/SN, nonskilled Home health aides, no DME needs. Patient Problems: Active and Suspected Problems (Last Reviewed 02/01/18 @ 06:[address] Royer Maxwell MD) Fall (Acute) - Physical Exam Vitals/I&O's: Vital Signs Temp Pulse Resp BP Pulse Ox 98 F 61 17 153/70 H 98 12/11/19 05:04 12/11/19 05:04 12/11/19 05:04 12/11/19 05:04 12/11/19 05:04 Oxygen Delivery Method Room Air Weight: 94.858 kg Body Mass Index (BMI) 26.9 Finger Stick Blood Glucose 140 Orthostatic Vital Signs Start: 11/22/19 10:24 Freq: Status: Active Protocol: Activity Type Activity Date Activity User E-Sign Co-Sign Detail Recorded Client Recorded Date Recorded By Document 11/24/19 10:00 PS [id number] 11/24/19 12:03 PS 11/24/19 10:00 Orthostatic Vitals Sitting -Blood Pressure (90/60-120/80) 137/80 H -Extremity Use Left Arm -Pulse Rate (60-100) 72 Lying -Blood Pressure (90/60-120/80) 118/69 -Extremity Use Left Arm -Pulse Rate (60-100) 75 Intake and Output for Last 24 Hours 12/09/19 12/10/19 12/11/19 23:59 23:59 23:59 Intake Total 1200 / 1200 1680 / 1680 Balance 1200 / 1200 1680 / 1680 Microbiology Past 72 Hours 12/06/19 02:15 Urine, Clean Catch Urine Culture - Final Providencia rettgeri Laboratory Results 12/11/19 05:45: WBC 5.2, RBC 3.85 L, Hgb 11.6 L, Hct 37.0 L, MCV 96.1 H, MCH 30.1, MCHC 31.4 L, RDW Std Deviation 54.7 H, RDW Coeff of Earline 15.4 H, Plt Count 163, MPV 9.3, Immature Gran % (Auto) 0.600, Neut % (Auto) 48.1, Lymph % (Auto) 40.4, [place]iken % (Auto) 7.8, Eos % (Auto) 2.7, Baso % (Auto) 0.4, Absolute Neuts (auto) 2.5, Absolute Lymphs (auto) 2.08, Nucleated RBC % 0 12/11/19 05:45: Sodium 139, Potassium 4.3, Chloride 105, Carbon Dioxide 29.0, Anion Gap 5, BUN 19 H, Creatinine 0.84, Estim Creat Clear Calc 88.98, Est GFR (MDRD) Af Amer 113, Est GFR (MDRD) Non-Af 93, BUN/Creatinine Ratio 22.5 H, Glucose 119 H, Calcium 9.0 Current Medications Acetaminophen (Tylenol) 1,000 mg PO TID [facility] Last Admin: 12/11/19 04:58 Dose: 1,000 mg Documented by: Bisacodyl (Dulcolax) 10 mg PO DAILY PRN PRN PRN Reason: Constipation Last Admin: 12/09/19 05:08 Dose: 10 mg Documented by: Calamine/Phenol (Calmoseptine Ointment) 1 applic TOPICAL BID [facility]; Protocol Last Admin: 12/11/19 05:03 Dose: 1 applicatio Documented by: Emollient Ointment (Eucerin Intensive Repair) 1 applic TOPICAL 0600,2200 [facility]; Protocol Last Admin: 12/11/19 05:03 Dose: 1 applicatio Documented by: Galantamine Hydrobromide (Razadyne) [facility] Last Admin: 12/11/19 07:56 Dose: 4 mg Documented by: Mirtazapine (Remeron) 7.5 mg PO QHS [facility] Last Admin: 12/10/19 21:12 Dose: 7.5 mg Documented by: Nutritional Formula (Lactose Free) (Ensure Enlive) 120 ml PO 4X/DAY [facility] Last Admin: 12/11/19 04:57 Dose: 120 ml Documented by: Nystatin (Mycostatin Powder) 1 applic TOPICAL 0600,2200 [facility]; Protocol Last Admin: 12/11/19 05:02 Dose: 1 applicatio Documented by: Polyethylene Glycol (Miralax) 17 gm PO DAILY [facility] Last Admin: 12/11/19 04:57 Dose: 17 gm Documented by: Polysaccharide Iron Complex (Ferrex 150) [facility] Last Admin: 12/11/19 07:56 Dose: 150 mg Documented by: Rivaroxaban (Xarelto) 20 mg PO DAILY@1700 [facility] Last Admin: 12/10/19 16:21 Dose: 20 mg Documented by: Rosuvastatin Calcium (Crestor) 10 mg PO QHS [facility] Last Admin: 12/10/19 21:12 Dose: 10 mg Documented by: Senna/Docusate Sodium (Senokot-S, Leslye-Colace) 2 tablet PO BID [facility] Last Admin: 12/11/19 04:57 Dose: 2 tablet Documented by: Sodium Chloride () 10 - 40 ml IV UD PRN PRN Reason: SALINE FLUSH Last Admin: 11/24/19 10:44 Dose: 10 ml Documented by: Trimethoprim/Sulfamethoxazole (Bactrim Ds) 1 tablet PO BID [facility] Stop: 12/16/19 18:01 Last Admin: 12/11/19 04:57 Dose: 1 tablet Documented by: Discharge Diet: No Restrictions Discharge Activity: Return to Normal Activity, May Shower, Use Walker Weight Bearing Status: Weight bearing as tolerated Call your doctor if you observe: Fever of 101 or Higher, Inability to urinate, Inability to have a bowel movement, Shortness of breath, Chest pain, Uncontrolled pain Home Medications: Medications to take at Discharge Rosuvastatin Calcium [Crestor] 10 mg PO QHS 05/11/19 Galantamine Hbr [Razadyne] 4 mg PO BIDCM 05/14/19 Acetaminophen [Tylenol] 1,000 mg PO Q8 05/31/19 Menthol/Lanolin/Calamine/Znox [Calmoseptine Ointment] 1 applic TOPICAL BID 05/31/19 Emollient Combination No.72 [Eucerin Intensive Repair] 1 applic TOPICAL 0600,0 10/21/19 Nystatin Powder [Mycostatin Powder] 1 applic TOPICAL 0600,0 10/21/19 Acetaminophen [Tylenol] 1,000 mg PO TID tab 12/11/19 Iron Polysaccharide Complex [Ferrex 150] 150 mg PO DAILYCM #30 cap 12/11/19 Mirtazapine [Remeron] 7.5 mg PO QHS #30 tab 12/11/19 Rivaroxaban [Xarelto] 20 mg PO DAILY@1700 #30 tab 12/11/19 Following Prescrptions Were Given to Patient: Iron Polysaccharide Complex [Ferrex 150] 150 mg PO DAILYCM #30 cap [facility]: [facility] Mirtazapine [Remeron] 7.5 mg PO QHS #30 tab Transmission Status: Pending to [facility] Rivaroxaban [Xarelto] 20 mg PO DAILY@1700 #30 tab Transmission Status: Pending to [facility] Primary Care Physician: Gildardo Catherine MD [Primary Care Provider] - Please follow up with your Primary Care Physician in: 1 week. Please Follow Up With: Davy Myers MD When: telehealth appt Disposition: Home with Home Health Minutes spent on discharge:: 35 Patient Condition:: Stable Medical Necessity - Tobacco Use Smoking Status: Never smoker Tobacco Use: Non-smoker Meaningful Use Info Meaningful Use Diagnoses (Choose all that apply): None applicable
--- NOTE | 2019-12-11 12:30 | CASEMGMT ---
Addendum entered by Alissa Pacheco 12/11/19 16:50: [facility] is unable to accept as pt does not have Medicare Part B, [employer] is secondary and they are not accepting [employer]'s at this time. Family does not want to have to pay privately for therapies as well. [facility] can accept and request auth for [employer] Part B. Family and pt accepting of [facility]. Ordered COVID test for negative prior to admit. Original Note: Social Work After spoke further with PT, spoke with SW and requesting referrals to [facility] and [facility] SNFs. stated she spoke it with her children and are realistic to the level fo care the pt requires and unable to secure private aides in the home for that care. Explained SNFs would be private pay and pt could have Part B therapies. expressed understanding. Referrals made for DC 12/15. Will continue to follow. Alissa Pacheco, NATALIE LESTERW
[2019-12-11 12:41] VITALS: BP 148/58; PULSE 71; RESP 18; TEMP 36.2; O2SAT 96
[2019-12-11 12:44] VITALS: PULSE 71; RESP 18; O2SAT 96
[2019-12-11] MEDS: Rivaroxaban 20 MG Tablet PO (16:02)
--- NOTE | 2019-12-11 16:04 | NURSING ---
Road Inspector Note: Facetime call with resident to , Jesika. Jesika explained to resident that after conversing at length with CHANGE RELEASE MANAGER, the recommendations that he discharge to a [facility] care facility for continued care and therapies would be an ideal situation. Resident agreed and is amenable to plan. Resident and continued conversation, resident animated, joking and smiling throughout call. Scheduled facetime call for 12/12/19 with CHANGE RELEASE MANAGER/BINDER LOCKSTITCH.
--- NOTE | 2019-12-11 17:04 | PCM.TXEXTCAR ---
- Diet 11/20/19 10:10 Diet: Regular Diet Food consistency:: Mechanical Soft/Ground Liquid Consistency:: Regular/Thin Is pt able to select menu?: No Diet Comments: NO PORK or CHOCOLATE...please cut up food - Routine Orders/Code Status Suppository Type: Dulcolax 10mg Suppository Frequency: Daily PRN Code Status: Full Code - Wound(s) Left hip Wound Type: Surgical Incision Dressing Change: Dry Sterile Dressing rt heel Wound Type: Pressure Injury R upper buttock Wound Type: Pressure Injury coccyx Wound Type: Pressure Injury Dressing Change: mepilex 11/22 - Therapies Weight Bearing: Weight bearing as tolerated Extremity Affected:: Bilateral Lower Physical Therapy: Eval and Treat Occupational Therapy: Eval and Treat - Problem/Diagnosis (1) Fall Status: Acute Current Visit: Yes (2) Vascular dementia Status: Chronic Current Visit: No (3) Cervical spinal stenosis Status: Chronic Current Visit: No (4) Left hemiparesis Status: Chronic Current Visit: No (5) Tongue cancer Status: Chronic Current Visit: No (6) Obstructive sleep apnea Status: Chronic Current Visit: No (7) Hyperlipidemia Status: Chronic Current Visit: No (8) Overactive bladder Status: Chronic Current Visit: No (9) Migraine Status: Chronic Current Visit: No (10) Debility Status: Acute Current Visit: No (11) Diabetes mellitus type 2 in nonobese Status: Chronic Current Visit: No (12) Closed left hip fracture Status: Acute Current Visit: No (13) Stroke Status: Chronic Current Visit: No (14) HTN (hypertension) Status: Chronic Current Visit: No - Allergies/Procedures Done in Hospital Allergies/Adverse Reactions: Allergies chocolate flavor Adverse Reaction (Unknown, Verified 10/17/19 14:36) Other headache Pork/Porcine Containing Products Adverse Reaction (Unknown, Verified 10/17/19 14:36) Other headache atorvastatin [From Lipitor] Adverse Reaction (Verified 10/17/19 14:36) Other stomach issues oxybutynin Adverse Reaction (Verified 10/17/19 14:36) Other - Type of Care/Length of Stay Estimated LOS: More Than 30 Days Type of Care Needed: Intermediate Rehab Potential: Fair Prognosis: Fair - Additional Orders/Day of Discharge Day of Discharge: 12/16/19 - Dietary and Speech Recommendations Dietitian Recommendations/Changes: [facility] continue liberal [facility]/t s/s of malnutrition; cut-up food. Rec continue Remeron and Ensure Enlive w/ medpass 4x/day if res willing. Will d/c ONS at meals d/t improved po intake and wt gain. - Follow Up Care Primary Care Physician: Gildardo Catherine MD [Primary Care Provider] - Please follow up with your Primary Care Physician in: 1 week. Please Follow Up With: Gildardo Catherine MD Please Follow Up With: Davy Myers MD When: telehealth appt
[2019-12-11] MEDS: Mirtazapine 15 MG Tablet 7.5 MG PO (22:19)
[2019-12-12] MEDS: Senna/Docusate Sodium 1 Tablet 2 TABLET PO ×2 (06:16→17:17)
[2019-12-12] MEDS: Acetaminophen 500 MG Tablet 1000 MG PO ×3 (06:16→22:13)
[2019-12-12] MEDS: Smz/Tmp Ds Tablet 1 TABLET PO ×2 (06:16→17:17)
[2019-12-12] MEDS: Polyethylene Glycol 3350 17 GM PACKET PO (06:16)
[2019-12-12] MEDS: Menthol/Lanolin/Calamine/Znox 113 GM Tube 1 APPLIC TOPICAL ×2 (06:17→17:22)
[2019-12-12] MEDS: Nystatin Powder 15gm Bottle 1 APPLIC TOPICAL ×2 (06:17→22:16)
[2019-12-12 06:21] VITALS: BP 170/74; PULSE 81; RESP 16; TEMP 37.1
[2019-12-12] MEDS: Iron Polysaccharide Complex 150 MG CAPSULE PO (08:25)
[2019-12-12] MEDS: Galantamine Hydrobromide 4 MG Tablet PO ×2 (08:26→17:17)
[2019-12-12 13:45] VITALS: PULSE 77; RESP 18; O2SAT 95
[2019-12-12 13:56] VITALS: BP 144/86; PULSE 77; RESP 18; TEMP 36.8; O2SAT 95
[2019-12-12] MEDS: Rivaroxaban 20 MG Tablet PO (17:17)
[2019-12-12] MEDS: Mirtazapine 15 MG Tablet 7.5 MG PO (22:13)
[2019-12-13 05:30] VITALS: BP 159/85; PULSE 63; RESP 16; TEMP 36.6; O2SAT 95
[2019-12-13] MEDS: Bisacodyl 5 MG Tablet 10 MG PO (05:31)
[2019-12-13] MEDS: Nystatin Powder 15gm Bottle 1 APPLIC TOPICAL ×2 (05:32→21:14)
[2019-12-13] MEDS: Menthol/Lanolin/Calamine/Znox 113 GM Tube 1 APPLIC TOPICAL ×2 (05:32→17:31)
[2019-12-13] MEDS: Polyethylene Glycol 3350 17 GM PACKET PO (05:33)
[2019-12-13] MEDS: Acetaminophen 500 MG Tablet 1000 MG PO ×3 (05:34→21:09)
[2019-12-13] MEDS: Smz/Tmp Ds Tablet 1 TABLET PO ×2 (05:34→17:31)
[2019-12-13] MEDS: Senna/Docusate Sodium 1 Tablet 2 TABLET PO ×2 (05:35→17:31)
[2019-12-13] MEDS: Iron Polysaccharide Complex 150 MG CAPSULE PO (10:10)
[2019-12-13] MEDS: Galantamine Hydrobromide 4 MG Tablet PO ×2 (10:10→17:31)
[2019-12-13 11:55] VITALS: BP 108/64; PULSE 73; RESP 18; TEMP 36.7; O2SAT 97
[2019-12-13 11:56] VITALS: PULSE 73; RESP 18; O2SAT 97
--- NOTE | 2019-12-13 14:45 | CHAPLAIN ---
Type of Pastoral Visit ___ Initial Visit _x__ Follow-up Visit ___ On-call Visit ___ General Patient Visit ___ Spiritual Assessment ___ Family Conference ___ Bereavement ___ Rapid Response ___ Code Blue ___ Other (describe below) Pastoral Care Referral From _x__ Patient ___ Family ___ Nurse ___ Physician ___ Hospital Receiving Clerk ___ Cnc Supervisor ___ Other (describe below) Sacrament/Intervention _x__ Active listening ___ Anointing ___ Mormon ___ Bereavement ___ Communion ___ Tasha exploration ___ ___ Life review ___ Prayer ___ Reconciliation ___ Sacrament of Sick _x__ Supportive presence ___ Wedding ___ Other (describe below) Pastoral Comments 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
[2019-12-13] MEDS: Rivaroxaban 20 MG Tablet PO (17:31)
[2019-12-13] MEDS: Mirtazapine 15 MG Tablet 7.5 MG PO (21:09)
[2019-12-14 06:15] VITALS: BP 155/84; PULSE 61; RESP 16; TEMP 36.7; O2SAT 96
[2019-12-14] MEDS: Acetaminophen 500 MG Tablet 1000 MG PO ×3 (06:19→21:09)
[2019-12-14] MEDS: Smz/Tmp Ds Tablet 1 TABLET PO ×2 (06:19→16:58)
[2019-12-14] MEDS: Polyethylene Glycol 3350 17 GM PACKET PO (06:20)
[2019-12-14] MEDS: Menthol/Lanolin/Calamine/Znox 113 GM Tube 1 APPLIC TOPICAL ×2 (06:21→16:59)
[2019-12-14] MEDS: Nystatin Powder 15gm Bottle 1 APPLIC TOPICAL ×2 (06:21→21:10)
[2019-12-14] MEDS: Senna/Docusate Sodium 1 Tablet 2 TABLET PO ×2 (06:23→17:00)
[2019-12-14] MEDS: Galantamine Hydrobromide 4 MG Tablet PO ×2 (09:49→16:58)
[2019-12-14] MEDS: Iron Polysaccharide Complex 150 MG CAPSULE PO (09:49)
--- NOTE | 2019-12-14 14:03 | NURSING ---
CALLED R' AND GAVE HER DAILY UPDATE.
[2019-12-14 14:37] VITALS: BP 141/76; PULSE 60; RESP 16; TEMP 36.6; O2SAT 97
[2019-12-14] MEDS: Rivaroxaban 20 MG Tablet PO (16:58)
[2019-12-14] MEDS: Mirtazapine 15 MG Tablet 7.5 MG PO (21:09)
[2019-12-15 04:00] VITALS: BP 146/89; PULSE 66; RESP 16; TEMP 36.2; O2SAT 95
[2019-12-15] MEDS: Smz/Tmp Ds Tablet 1 TABLET PO ×2 (05:04→16:57)
[2019-12-15] MEDS: Acetaminophen 500 MG Tablet 1000 MG PO ×3 (05:04→21:48)
[2019-12-15] MEDS: Menthol/Lanolin/Calamine/Znox 113 GM Tube 1 APPLIC TOPICAL ×2 (05:05→16:58)
[2019-12-15] MEDS: Polyethylene Glycol 3350 17 GM PACKET PO (05:05)
[2019-12-15] MEDS: Senna/Docusate Sodium 1 Tablet 2 TABLET PO ×2 (05:05→16:57)
[2019-12-15] MEDS: Nystatin Powder 15gm Bottle 1 APPLIC TOPICAL ×2 (05:06→21:49)
[2019-12-15] MEDS: Iron Polysaccharide Complex 150 MG CAPSULE PO (08:32)
[2019-12-15] MEDS: Galantamine Hydrobromide 4 MG Tablet PO ×2 (08:32→16:57)
[2019-12-15 12:42] VITALS: PULSE 73; RESP 18; O2SAT 96
[2019-12-15 12:53] VITALS: BP 118/64; PULSE 73; RESP 18; TEMP 36.8; O2SAT 96
[2019-12-15] MEDS: Rivaroxaban 20 MG Tablet PO (16:57)
[2019-12-15] MEDS: Mirtazapine 15 MG Tablet 7.5 MG PO (21:48)
[2019-12-16 04:40] VITALS: BP 168/98; PULSE 66; RESP 18; TEMP 36.4; O2SAT 93
[2019-12-16] MEDS: Acetaminophen 500 MG Tablet 1000 MG PO (05:56)
[2019-12-16] MEDS: Smz/Tmp Ds Tablet 1 TABLET PO (05:56)
[2019-12-16] MEDS: Polyethylene Glycol 3350 17 GM PACKET PO (05:56)
[2019-12-16] MEDS: Nystatin Powder 15gm Bottle 1 APPLIC TOPICAL (05:57)
[2019-12-16] MEDS: Menthol/Lanolin/Calamine/Znox 113 GM Tube 1 APPLIC TOPICAL (05:57)
[2019-12-16] MEDS: Senna/Docusate Sodium 1 Tablet 2 TABLET PO (05:58)
[2019-12-16] MEDS: Galantamine Hydrobromide 4 MG Tablet PO (08:55)
[2019-12-16] MEDS: Iron Polysaccharide Complex 150 MG CAPSULE PO (08:55)
--- NOTE | 2019-12-16 10:46 | NURSING ---
called in requesting lunch tray be brought up at 11am since pt transitioning to [employer] run at noon today. would like this nurse to call her cell phone when pt ride here so she can follow them to [employer] for signing of paperwork.
--- NOTE | 2019-12-16 11:29 | NURSING ---
Report called to nurse at [facility]. Resident to be transferred at noon today.
[2019-12-16 11:58] VITALS: BP 146/77; PULSE 79; RESP 16; TEMP 36.6; O2SAT 95
== END 2019-12-16 12:37 | disposition intermediate care facility (04) | DRG 560 ==
PROVIDERS: Orthopaedic Surgery; Admitting Provider Family Medicine Geriatric Medicine; PCP Family Medicine; Visit Provider Family Medicine Geriatric Medicine
DX: S72.002D Fracture of unspecified part of neck of left femur, subsequent encounter for closed fracture with routine healing (principal); G81.94 Hemiplegia, unspecified affecting left nondominant side; I82.402 Acute embolism and thrombosis of unspecified deep veins of left lower extremity; N39.0 Urinary tract infection, site not specified; M76.30 Iliotibial band syndrome, unspecified leg; W10.9XXD Fall (on) (from) unspecified stairs and steps, subsequent encounter; Z23 Encounter for immunization; F01.50 Vascular dementia, unspecified severity, without behavioral disturbance, psychotic disturbance, mood disturbance, and anxiety; M48.02 Spinal stenosis, cervical region; E78.5 Hyperlipidemia, unspecified; G47.33 Obstructive sleep apnea (adult) (pediatric); E11.9 Type 2 diabetes mellitus without complications; G43.909 Migraine, unspecified, not intractable, without status migrainosus; I10 Essential (primary) hypertension; B35.4 Tinea corporis; D50.9 Iron deficiency anemia, unspecified; E55.9 Vitamin D deficiency, unspecified; N32.81 Overactive bladder; Z86.73 Personal history of transient ischemic attack (TIA), and cerebral infarction without residual deficits
CPT/HCPCS: 36415; 73502; 73552; 73562; 74018; 80048; 81001; 82274; 82962; 85014; 85018; 85025; 87077; 87086; 87088; 87186; 87635; 92507; 92526; 92610; 93971; 97110; 97116; 97163; 97166; 97530; 97535; 97542; 97802; G0009; G2023; J7030; 90670; A4216; U0002; U0003; U0004